=== PATIENT | male | born 1950 | race Caucasian/White ===

== ENCOUNTER 2020-05-06 12:23 | Inpatient (IN) | payer MEDICARE, MEDICAID, SELFPAY ==
[2020-05-06] VITALS (8 sets, daily range): BP systolic 93–160; BP diastolic 46–80; PULSE 62–78; RESP 14–22; TEMP 36.6–37.7; O2SAT 93–98; BMI 42.5
--- NOTE | 2020-05-06 12:28 | ECG_ITS ---
Test Reason : INFECTION/SEPSIS? Blood Pressure : / mmHG Vent. Rate : 064 BPM Atrial Rate : 064 BPM P-R Int : 160 ms QRS Dur : 100 ms QT Int : 396 ms P-R-T Axes : 019 008 023 degrees QTc Int : 408 ms Normal sinus rhythm Normal ECG When compared with ECG of 29-APR-2019 09:47, No significant change was found Referred By: Jimena Haines Electronically Signed By:LILI DHALIWAL
--- NOTE | 2020-05-06 12:28 | XR_ITS ---
EXAMINATION: XR CHEST CLINICAL INFORMATION: Weakness, suspect COVID COMPARISON: Chest radiographs 04/29/2019, 07/17/2017 TECHNIQUE: Portable upright AP view of the chest was obtained. FINDINGS: Lungs are clear. There is no airspace consolidation or groundglass opacity. The heart is normal in size. The vascularity is normal. The costophrenic sulci are clear. The hilar and mediastinal contours and bony structures are similar to prior study. XR/XR chest 1V IMPRESSION: Unremarkable examination.
--- NOTE | 2020-05-06 12:30 | ED.WEAKNESS ---
HPI - Weakness General Chief complaint: Weakness Stated complaint: weakness x3 days, dizzy Time Seen by Provider: 05/06/20 12:28 Source: patient and EMS Mode of arrival: EMS Limitations: no limitations History of Present Illness HPI Narrative: 69 y/o male with history of RA with chronic knee pain on chronic opiates, HTN, psoriasis, MICHAEL, HLD, hx fall, CKD who presents to the ED via EMS with reports of 3 days of generalized weakness to the point of being unable to ambulate at home. He lives alone and usually walks with a walker. He also reports dizziness at home. He has increase in LE edema and pain along with new skin changes of redness to lower legs. He denies fever, chills, or chest pain at home. He is intermittently SOB which is his baseline. He has been compliant with his lasix BID. Complaint: generalized weakness Onset (ago): day(s) (3) Duration: constant Location: generalized Migration: none Severity: severe Quality: aching Relieving factors: rest Exacerbating factors: movement and exertion Context: history of similar Associated symptoms: loss of appetite, rash and shortness of breath Related Data Home Medications Medication Instructions Recorded Confirmed etanercept 50 mg/mL (1 mL) 50 mg SUBCUT QWEEK 05/04/20 05/04/20 subcutaneous syringe folic acid 1 mg tablet 1 mg PO DAILY 05/04/20 05/04/20 omeprazole 20 mg capsule,delayed 20 mg PO DAILY 05/04/20 05/04/20 release promethazine 25 mg tablet 12.5 mg PO BID PRN 05/04/20 05/04/20 Previous Rx's Medication Instructions Recorded fluticasone propionate 50 2 spray INTRANASAL DAILY #15.8 ml 02/03/20 mcg/actuation nasal spray,suspension furosemide 20 mg tablet 20 mg PO BID #90 tab 03/31/20 ibuprofen 600 mg tablet 600 mg PO Q8H PRN #90 tab 05/02/20 oxycodone 5 mg tablet 10 mg PO Q6H PRN #240 tab 05/04/20 Allergies Allergy/AdvReac Type Severity Reaction Status Date / Time simvastatin [SIMVASTATIN] Allergy Unknown TOLD NEVER Verified 05/04/20 08:40 TO TAKE, Cramps in legs, cramps in legs Gold shot AdvReac Unknown Itching Uncoded 12/09/19 00:00 Review of Systems Review of Systems: Constitutional: No Fever, No Chills ENT/Mouth: No sore throat, No Rhinorrhea, No Swallowing Difficulty Eyes: No Eye Pain, No Swelling, No Redness Cardiovascular: No Chest Pain, + SOB, No Orthopnea, + Edema Respiratory: No Cough, No Sputum, No Wheezing, No dyspnea Gastrointestinal: No Nausea, No Vomiting, No Diarrhea, No abdominal Pain, No Hematochezia, No Melena, +constipation Genitourinary: No Dysuria, No Urinary Frequency, No Hematuria Musculoskeletal: + joint pain, + Myalgias Skin: + Skin Lesions, + rash Neuro: + Weakness, No Numbness, + Dizziness, + Headache Psych: No Anxiety/Panic, No Depression Heme/Lymph: No Bruising, No Lymphadenopathy Endocrine: No Polyuria, No Polydipsia PMFSH Past Medical History Medical History (Updated 05/06/20 @ 17:50 by ROLANDA Gaming) Chronic arthritis Pain management Surgical History H/O rectal polypectomy History of bilateral cataract extraction Family History Family History Father CAD (coronary artery disease) Diabetes Mother Diabetes Brother Diabetes Social History Social History Alcohol intake: never Smoking Status: Never smoker Smoked in Last 30 Days: No Use of substances other than those prescribed or required for medical reasons: No Advance Directives: No Advance Directives Information Provided: Yes Physical Exam Vital Signs: Vital Signs: Last Vital Signs Temp 99.8 F 05/06/20 17:45 Pulse 62 05/06/20 17:45 Resp 15 05/06/20 17:45 BP 93/51 L 05/06/20 17:45 Pulse Ox 98 05/06/20 17:45 Body Mass Index 42.5 Appearance: Alert. Oriented X3. No acute distress. Eyes: Pupils equal, round and reactive to light. Very pale conjunctiva bilaterally ENT: tongue and mucus membranes extremely dry Neck: Normal inspection. Neck supple. CVS: Normal heart rate and rhythm. Pulses normal. Respiratory: No respiratory distress. Breath sounds normal. Abdomen: Obses, Soft and nontender. +BS x4 ZULY: Stool ball palpated in distal rectum, normal rectal bone, light brown stool. Skin: Skin warm and dry. Normal skin color. Poor skin turgor. Extremities: 3+ LE edema from knees distally with bilateral erythema and warmth. RLE with several 1cm blackened scabs anteriorly. LLE with 2cm clear fluid filled bulla to lower leg with superficial 4cm circular culceration medially with yellowish discharge on dressing. Neuro: Oriented X 3. Severe generalized weakness, RUE >LLE. 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 No facial droop, smile is symmetrical. Course Course Course Narrative: 69 y/o male presenting with significantly generalized weakness, LE edema and erythema concerning for cellulitis and sepsis. Concerned for electrolyte abnormalities given muscle weakness. He is very pale, likely anemic. Admits to occasional BRBPR. Not on a/c. No black stools. Reports weakness x2-3 days. Doubt acute CVA given it is diffuse (although RUE more weak than LUE) but will get CT head to further assess. Will panculture, get basic labs, EKG and check for COVID. Anticipate admission. Reevaluation(s) Reevaluation #1: Labs show WBC 22K with acute renal failure, BUN/Cr 57/2.03 from a baseline of 33/1.32 one year ago. He is also anemic with H/H 9.5/29.7 from a baseline of 13/38. Guiac stool is negative. ?from renal failure. BNP 222 with significant edema on exam - will need to be cautious with IVF. 1L ordered over 4 hours as well as broad spectrum antibiotics Vancomycin and Zosyn. Lactic acid is normal. LE dopplers ordered to r/o DVT. Patient informed of results and need for admission and he is agreeable. Reevaluation #2: Spoke with Dr. Culver re: US results +DVT in RLE at junction of common & superficial femoral veins to popliteal veins. Given ABEL will start on heparin infusion for treatment. His H/H will need to be closely monitored given anemia. No signs of bleeding. Will TT hospitalist for admission. Reevaluation #3: to admit. MDM - Weakness Lab Data Result diagrams: 05/06/20 12:54 05/06/20 12:54 Labs: Lab Results 05/06/20 05/06/20 05/06/20 Range/Units 12:54 12:54 12:54 WBC 22.4 H (4.8-10.8) X10*3/uL RBC 3.25 L (4.60-5.80) X10*6/uL Hgb 9.5 L (14.0-18.0) g/dl Hct 29.7 L (42-52) % MCV 91.4 (80-98) fL MCH 29.2 (27.0-33.0) pg MCHC 32.0 (31.0-36.0) g/dl RDW 17.2 H (11.0-16.0) % Plt Count 197 (160-400) X10*3/uL MPV 10.2 (9.4-12.4) fL Immature Gran % (Auto) Cancelled Neut % (Auto) Cancelled Lymph % (Auto) Cancelled [place] % (Auto) Cancelled Eos % (Auto) Cancelled Baso % (Auto) Cancelled Lymph # (Auto) Cancelled [place] # (Auto) Cancelled Eos # (Auto) Cancelled Baso # (Auto) Cancelled Abs Immat Gran (auto) Cancelled Absolute Neuts (auto) Cancelled Absolute Nucleated RBC 0.000 (0.0-0.012) X10*3/uL Nucleated RBC % (auto) 0.0 (0.0-0.2) /100WBC Neutrophils % (Manual) 77 H (45-73) % Band Neutrophils % 20 H (3-5) % Lymphocytes % (Manual) 2 L (20-40) % Monocytes % (Manual) 1 L (2-11) % Abs Neuts (Manual) 21.7 H (2.2-7.9) X10*3/uL Lymphocytes # (Manual) 0.4 L (0.6-4.8) X10*3/uL Monocytes # (Manual) 0.2 (0.0-1.2) X10*3/uL Toxic Vacuolation PRESENT Platelet Estimate NORMAL (NORMAL) Plt Morphology Comment NORMAL RBC Morphology NOTED Rouleaux PRESENT PT 14.9 H (10.8-13.0) SEC INR 1.3 H (0.9-1.1) APTT 33.2 (24.1-38.0) SEC Hold Blue Top SEE NOTE Sodium 140 (135-145) mmol/L Potassium 4.1 (3.3-5.1) mmol/l Chloride 110 H (96-108) mmol/L Carbon Dioxide 17 L (22-29) mmol/L Anion Gap 17 (12-20) BUN 57 H (9-16) mg/dL Creatinine 2.03 H (0.5-1.4) mg/dL Estim Creat Clear Calc 41.9 Estimated GFR 33 Random Glucose 167 H (60-115) mg/dL Lactic Acid (0.5-2.0) mmol/L Calcium 8.5 (8.4-10.2) mg/dL Magnesium 2.4 (1.6-2.6) mg/dL Total Bilirubin 0.5 (0.0-1.0) mg/dL Direct Bilirubin 0.3 (0.0-0.5) mg/dL AST 33 (5-37) U/L ALT 19 (0-40) U/L Alkaline Phosphatase 85 (39-117) U/L C-Reactive Protein 31.00 H (< or = 0.50) mg/dL B-Natriuretic Peptide (<100) pg/mL Total Protein 6.5 (6.5-8.0) g/dL Albumin 3.2 L (3.5-5.0) g/dL Stool Occult Blood (NEG) Coronavirus (PCR) (Negative) Influenza Type A (PCR) (Negative) Influenza Type B (PCR) (Negative) RSV RNA Qual (PCR) (Negative) Blood Type Antibody Screen 05/06/20 05/06/20 05/06/20 Range/Units 12:54 13:03 13:04 WBC (4.8-10.8) X10*3/uL RBC (4.60-5.80) X10*6/uL Hgb (14.0-18.0) g/dl Hct (42-52) % MCV (80-98) fL MCH (27.0-33.0) pg MCHC (31.0-36.0) g/dl RDW (11.0-16.0) % Plt Count (160-400) X10*3/uL MPV (9.4-12.4) fL Immature Gran % (Auto) Neut % (Auto) Lymph % (Auto) [place] % (Auto) Eos % (Auto) Baso % (Auto) Lymph # (Auto) [place] # (Auto) Eos # (Auto) Baso # (Auto) Abs Immat Gran (auto) Absolute Neuts (auto) Absolute Nucleated RBC (0.0-0.012) X10*3/uL Nucleated RBC % (auto) (0.0-0.2) /100WBC Neutrophils % (Manual) (45-73) % Band Neutrophils % (3-5) % Lymphocytes % (Manual) (20-40) % Monocytes % (Manual) (2-11) % Abs Neuts (Manual) (2.2-7.9) X10*3/uL Lymphocytes # (Manual) (0.6-4.8) X10*3/uL Monocytes # (Manual) (0.0-1.2) X10*3/uL Toxic Vacuolation Platelet Estimate (NORMAL) Plt Morphology Comment RBC Morphology Rouleaux PT (10.8-13.0) SEC INR (0.9-1.1) APTT (24.1-38.0) SEC Hold Blue Top Sodium (135-145) mmol/L Potassium (3.3-5.1) mmol/l Chloride (96-108) mmol/L Carbon Dioxide (22-29) mmol/L Anion Gap (12-20) BUN (9-16) mg/dL Creatinine (0.5-1.4) mg/dL Estim Creat Clear Calc Estimated GFR Random Glucose (60-115) mg/dL Lactic Acid 1.5 (0.5-2.0) mmol/L Calcium (8.4-10.2) mg/dL Magnesium (1.6-2.6) mg/dL Total Bilirubin (0.0-1.0) mg/dL Direct Bilirubin (0.0-0.5) mg/dL AST (5-37) U/L ALT (0-40) U/L Alkaline Phosphatase (39-117) U/L C-Reactive Protein (< or = 0.50) mg/dL B-Natriuretic Peptide 222 H (<100) pg/mL Total Protein (6.5-8.0) g/dL Albumin (3.5-5.0) g/dL Stool Occult Blood (NEG) Coronavirus (PCR) NEGATIVE (Negative) Influenza Type A (PCR) NEGATIVE (Negative) Influenza Type B (PCR) NEGATIVE (Negative) RSV RNA Qual (PCR) NEGATIVE (Negative) Blood Type Antibody Screen 05/06/20 05/06/20 05/06/20 Range/Units 13:23 13:23 14:09 WBC (4.8-10.8) X10*3/uL RBC (4.60-5.80) X10*6/uL Hgb (14.0-18.0) g/dl Hct (42-52) % MCV (80-98) fL MCH (27.0-33.0) pg MCHC (31.0-36.0) g/dl RDW (11.0-16.0) % Plt Count (160-400) X10*3/uL MPV (9.4-12.4) fL Immature Gran % (Auto) Neut % (Auto) Lymph % (Auto) [place] % (Auto) Eos % (Auto) Baso % (Auto) Lymph # (Auto) [place] # (Auto) Eos # (Auto) Baso # (Auto) Abs Immat Gran (auto) Absolute Neuts (auto) Absolute Nucleated RBC (0.0-0.012) X10*3/uL Nucleated RBC % (auto) (0.0-0.2) /100WBC Neutrophils % (Manual) (45-73) % Band Neutrophils % (3-5) % Lymphocytes % (Manual) (20-40) % Monocytes % (Manual) (2-11) % Abs Neuts (Manual) (2.2-7.9) X10*3/uL Lymphocytes # (Manual) (0.6-4.8) X10*3/uL Monocytes # (Manual) (0.0-1.2) X10*3/uL Toxic Vacuolation Platelet Estimate (NORMAL) Plt Morphology Comment RBC Morphology Rouleaux PT (10.8-13.0) SEC INR (0.9-1.1) APTT (24.1-38.0) SEC Hold Blue Top Sodium (135-145) mmol/L Potassium (3.3-5.1) mmol/l Chloride (96-108) mmol/L Carbon Dioxide (22-29) mmol/L Anion Gap (12-20) BUN (9-16) mg/dL Creatinine (0.5-1.4) mg/dL Estim Creat Clear Calc Estimated GFR Random Glucose (60-115) mg/dL Lactic Acid (0.5-2.0) mmol/L Calcium (8.4-10.2) mg/dL Magnesium (1.6-2.6) mg/dL Total Bilirubin (0.0-1.0) mg/dL Direct Bilirubin (0.0-0.5) mg/dL AST (5-37) U/L ALT (0-40) U/L Alkaline Phosphatase (39-117) U/L C-Reactive Protein (< or = 0.50) mg/dL B-Natriuretic Peptide 219 H (<100) pg/mL Total Protein (6.5-8.0) g/dL Albumin (3.5-5.0) g/dL Stool Occult Blood NEG (NEG) Coronavirus (PCR) (Negative) Influenza Type A (PCR) (Negative) Influenza Type B (PCR) (Negative) RSV RNA Qual (PCR) (Negative) Blood Type A Positive Antibody Screen NEGATIVE Discharge Plan Discharge Clinical Impression: Anemia, Acute deep vein thrombosis (DVT), Cellulitis, ABEL (acute kidney injury) Patient Disposition: Admitted As Inpatient Prescriptions: No Action fluticasone propionate 50 mcg/actuation spray,suspension 2 spray intranasal DAILY Qty: 15.8 RF: 8 furosemide 20 mg tablet 20 mg PO BID Qty: 90 RF: 8 ibuprofen 600 mg tablet 600 mg PO Q8H PRN (Reason: pain) Qty: 90 RF: 8 folic acid 1 mg tablet 1 mg PO DAILY RF: 0 promethazine 25 mg tablet 12.5 mg PO BID PRN (Reason: itch) RF: 0 Enbrel 50 mg/mL (1 mL) syringe 50 mg subcut QWEEK RF: 0 omeprazole 20 mg capsule,delayed release(DR/EC) 20 mg PO DAILY RF: 0 oxycodone 5 mg tablet 10 mg PO Q6H PRN (Reason: pain) Qty: 240 RF: 0
--- NOTE | 2020-05-06 12:34 | PC.NURSE ---
pt from home, lives alone, has 2 people that help care for him. He states over the past 3 days he has been taking on water . He states he uses a diuretic but in the last 3 days has had increasing leg edema making it difficult to walk. He states his family called [facility] because he was weak and unable to get up and around.
[2020-05-06 13:05] LABS: Hematocrit 29.7 % (42-52); Hemoglobin 9.5 g/dl (14.0-18.0); Mean Corpuscular Hemoglobin 29.2 pg (27.0-33.0); Mean Corpuscular Volume 91.4 fL (80-98); Mean Platelet Volume 10.2 fL (9.4-12.4); Platelet Count 197 X10*3/uL (160-400); Red Blood Count 3.25 X10*6/uL (4.60-5.80); Red Cell Distribution Width 17.2 % (11.0-16.0); White Blood Count 22.4 X10*3/uL (4.8-10.8)
--- NOTE | 2020-05-06 13:05 | CT_ITS ---
EXAMINATION: CT HEAD WITHOUT CONTRAST CLINICAL INFORMATION: Upper extremity weakness and dizziness. COMPARISON: CT brain 07/17/2017 TECHNIQUE: Contiguous axial imaging was performed from the skull base to vertex without intravenous administration of contrast. This CT examination was performed using dose optimization techniques as appropriate, variously including the following: *Automated exposure control *Adjustment of mA and/or kV according to patient size (this includes techniques or standardized protocols for targeted exams where dose is matched to indication/reason for exam; i.e. extremities or head) *Use of iterative reconstruction technique DLP: 867 mGy-cm FINDINGS: There is no evidence of acute intracranial hemorrhage or territorial infarction. No abnormal mass effect or midline shift is seen. Velazquez to white matter differentiation is well preserved. No extra-axial fluid collections are identified. The ventricles are normal in size. There is no abnormal attenuation within the brain parenchyma. The osseous structures and soft tissues are normal. The mastoid air cells and visualized portions of the paranasal sinuses are well aerated. CT/CT head/brain wo con IMPRESSION: No acute intracranial process seen. No major change from 07/17/2017
--- NOTE | 2020-05-06 13:08 | US_ITS ---
EXAMINATION: US VENOUS ULTRASOUND WITH DOPPLER LOWER EXTREMITY, BILATERAL CLINICAL INFORMATION: Edema, erythema and pain. COMPARISON: None TECHNIQUE: Ultrasound of the deep veins is performed from the hip to the calf with compression sonography and color and pulse Doppler assessment. Spectral analysis with color-flow imaging is performed. FINDINGS: RIGHT: There is acute thrombus seen extending from the common femoral/superficial femoral venous junction to the popliteal vein with very slow flow seen. The peroneal vein is not seen. There are several lymph nodes seen in the right groin with the largest lymph node measuring 3 cm. The proximal and mid and distal common femoral vein is patent. LEFT: There is normal venous compression and respiratory variation and augmented flow. The visualized common femoral vein, superficial femoral vein, profunda femoral vein, popliteal vein, and the trifurcation region shows no evidence of deep venous thrombosis. There is no significant popliteal fossa cyst. US/US venous duplex LE BI IMPRESSION: Acute DVT right right lower extremity extending from the junction of common and superficial femoral veins to the popliteal vein. No DVT seen in left lower leg. Results were called immediately by phone to ED, ROLANDA Gaming at 4:15 PM
[2020-05-06 13:31] LABS: Alanine Aminotransferase 19 U/L (0-40); Albumin Level 3.2 g/dL (3.5-5.0); Alkaline Phosphatase 85 U/L (39-117); Anion Gap 17 (12-20); Aspartate Amino Transferase 33 U/L (5-37); Band Neutrophils Percent 20 % (3-5); Bilirubin Direct 0.3 mg/dL (0.0-0.5); Bilirubin Total 0.5 mg/dL (0.0-1.0); Blood Urea Nitrogen 57 mg/dL (9-16); Calcium 8.5 mg/dL (8.4-10.2); Carbon Dioxide 17 mmol/L (22-29); Chloride 110 mmol/L (96-108); Creatinine Clr Calc Pharmacy 41.9; Estimated Glomerular Filt Rate 33; Glucose Random 167 mg/dL (60-115); Lymphocytes Absolute Manual 0.4 X10*3/uL (0.6-4.8); Lymphocytes Percent Manual 2 % (20-40); Magnesium 2.4 mg/dL (1.6-2.6); Monocytes Absolute Manual 0.2 X10*3/uL (0.0-1.2); Monocytes Percent Manual 1 % (2-11); Neutrophils Absolute Manual 21.7 X10*3/uL (2.2-7.9); Neutrophils Percent Manual 77 % (45-73); Platelet Estimate NORMAL (NORMAL); Platelet Morphology Comment NORMAL; Potassium 4.1 mmol/l (3.3-5.1); RBC Morphology NOTED; Sodium 140 mmol/L (135-145); Total Protein 6.5 g/dL (6.5-8.0); Toxic Vacuolation PRESENT
[2020-05-06 13:32] LABS: B Type Natriuretic Peptide 222 pg/mL (<100); Rouleau PRESENT
[2020-05-06 13:35] LABS: Lactic Acid 1.5 mmol/L (0.5-2.0)
[2020-05-06] MEDS: Piperacillin Sodium/Tazobactam 3.375 GM in 0.9 % Sodium Chloride 50 ML IV (13:35)
[2020-05-06 13:55] LABS: B Type Natriuretic Peptide 219 pg/mL (<100)
[2020-05-06 14:15] LABS: Influenza A PCR NEGATIVE (Negative); Influenza B PCR NEGATIVE (Negative); Resp Syncy Virus RNA Qual PCR NEGATIVE (Negative); SARS COV2 PCR INHOUSE NEGATIVE (Negative)
[2020-05-06 14:15] LABS: OBS Int Ctl Valid YES; OBS1 NEG (NEG)
[2020-05-06] MEDS: 0.9 % Sodium Chloride 1,000 ML 250 ML IVCONT (14:41)
[2020-05-06 16:36] LABS: INTERNATIONAL NORM RATIO 1.3 (0.9-1.1); Prothrombin Time 14.9 SEC (10.8-13.0)
[2020-05-06 16:39] LABS: Partial Thromboplastin Time 33.2 SEC (24.1-38.0)
--- NOTE | 2020-05-06 17:37 | P.HPHOSP_ITS ---
History of Present Illness Date of Service: 05/06/20 Chief Complaint: weakness swelling 69-year-old male morbidly obese , with stasis dermatitis, chronic arthritis presented with weakness and increased leg swelling, patient reported feeling weak and noticed increased swelling and redness of lower extremity more on the right side, patient also reported difficulty getting out of bed since last Saturday and patient was not able to eat and drink as patient was not able to stand up and walk, at baseline patient is able to walk to bathroom but not much functional , patient also reported few episodes of blood in stool on and off and attributed it from constipation, patient is taking Motrin for his arthritis, ethan brenton was brought to ER , in the ER found to have leukocytosis with WBCs around 22 , creatinine 2.0 , labs from April, shows creatinine around 1.02 , DVT study of right lower extremity was positive, found to have bilateral lower extremity redness and erythema superimposed on chronic dermatitis, patient was started on heparin drip, received 1 dose of Vanco and Zosyn and inpatient admission was requested Patient denies any fever chills or sick contact, patient was tested negative for COVID Review of Systems Constitutional: Constitutional: Reports fatigue and Reports weakness Cardiovascular: Cardiovascular: Denies chest pain, Reports leg edema and Denies dyspnea Respiratory: Respiratory: Denies dyspnea Gastrointestinal: Gastrointestinal: Denies diarrhea and Denies vomiting Musculoskeletal: Musculoskeletal: Reports arthralgias Neurologic: Denies abnormal gait, Denies focal weakness and Reports weakness Endocrine: Endocrine: Reports fatigue [facility] Medical History (Updated 05/06/20 @ 17:50 by ETHAN Gaming) Chronic arthritis Pain management Functional capacity: uses cane/walker Family History Father CAD (coronary artery disease) Diabetes Mother Diabetes Brother Diabetes Surgical History H/O rectal polypectomy History of bilateral cataract extraction Social History Alcohol intake: never Smoking Status: Never smoker Smoked in Last 30 Days: No Use of substances other than those prescribed or required for medical reasons: No Advance Directives: No Advance Directives Information Provided: Yes Meds Allergies Allergy/AdvReac Type Severity Reaction Status Date / Time simvastatin [SIMVASTATIN] Allergy Unknown TOLD NEVER Verified 05/04/20 08:40 TO TAKE, Cramps in legs, cramps in legs Gold shot AdvReac Unknown Itching Uncoded 12/09/19 00:00 Home Medications Medication Instructions Recorded Confirmed Type etanercept 50 mg/mL (1 mL) 50 mg SUBCUT QWEEK 05/04/20 05/04/20 History subcutaneous syringe folic acid 1 mg tablet 1 mg PO DAILY 05/04/20 05/04/20 History omeprazole 20 mg capsule,delayed 20 mg PO DAILY 05/04/20 05/04/20 History release promethazine 25 mg tablet 12.5 mg PO BID PRN 05/04/20 05/04/20 History Physical Exam Vital Signs and Narrative: Vital Signs: Last Vital Signs Temp 99.8 F 05/06/20 14:00 Pulse 62 05/06/20 16:11 Resp 14 05/06/20 16:11 BP 97/46 L 05/06/20 16:11 Pulse Ox 96 05/06/20 16:11 Body Mass Index 42.5 Const: General: no acute distress Neck: Yes normal visual inspection Resp: Auscultation: diminished lung sounds (Diminished lung sounds at bases) Cardio: Jugular venous distension: no JVD Rhythm: regular rhythm GI: Palpation (GI): Soft to palpation Skin: Nails: other (Bilateral lower extremity redness and swelling more on the right lower extr) Results Labs CBC and Chem 7: 05/06/20 12:54 05/06/20 12:54 Labs: Laboratory Results - last 24 hr 05/06/20 05/06/20 05/06/20 12:54 12:54 12:54 MCV 91.4 MCH 29.2 MCHC 32.0 RDW 17.2 H Plt Count 197 MPV 10.2 Immature Gran % (Auto) Cancelled Neut % (Auto) Cancelled Lymph % (Auto) Cancelled [place] % (Auto) Cancelled Eos % (Auto) Cancelled Baso % (Auto) Cancelled Lymph # (Auto) Cancelled [place] # (Auto) Cancelled Eos # (Auto) Cancelled Baso # (Auto) Cancelled Abs Immat Gran (auto) Cancelled Absolute Neuts (auto) Cancelled Absolute Nucleated RBC 0.000 Nucleated RBC % (auto) 0.0 Neutrophils % (Manual) 77 H Band Neutrophils % 20 H Lymphocytes % (Manual) 2 L Monocytes % (Manual) 1 L Abs Neuts (Manual) 21.7 H Lymphocytes # (Manual) 0.4 L Monocytes # (Manual) 0.2 Toxic Vacuolation PRESENT Platelet Estimate NORMAL Plt Morphology Comment NORMAL RBC Morphology NOTED Rouleaux PRESENT PT 14.9 H INR 1.3 H APTT 33.2 Hold Blue Top SEE NOTE Anion Gap 17 Estim Creat Clear Calc 41.9 Estimated GFR 33 Random Glucose 167 H Lactic Acid Calcium 8.5 Magnesium 2.4 Total Bilirubin 0.5 Direct Bilirubin 0.3 AST 33 ALT 19 Alkaline Phosphatase 85 C-Reactive Protein 31.00 H B-Natriuretic Peptide Total Protein 6.5 Albumin 3.2 L Stool Occult Blood Coronavirus (PCR) Influenza Type A (PCR) Influenza Type B (PCR) RSV RNA Qual (PCR) Blood Type Antibody Screen 05/06/20 05/06/20 05/06/20 12:54 13:03 13:04 MCV MCH MCHC RDW Plt Count MPV Immature Gran % (Auto) Neut % (Auto) Lymph % (Auto) [place] % (Auto) Eos % (Auto) Baso % (Auto) Lymph # (Auto) [place] # (Auto) Eos # (Auto) Baso # (Auto) Abs Immat Gran (auto) Absolute Neuts (auto) Absolute Nucleated RBC Nucleated RBC % (auto) Neutrophils % (Manual) Band Neutrophils % Lymphocytes % (Manual) Monocytes % (Manual) Abs Neuts (Manual) Lymphocytes # (Manual) Monocytes # (Manual) Toxic Vacuolation Platelet Estimate Plt Morphology Comment RBC Morphology Rouleaux PT INR APTT Hold Blue Top Anion Gap Estim Creat Clear Calc Estimated GFR Random Glucose Lactic Acid 1.5 Calcium Magnesium Total Bilirubin Direct Bilirubin AST ALT Alkaline Phosphatase C-Reactive Protein B-Natriuretic Peptide 222 H Total Protein Albumin Stool Occult Blood Coronavirus (PCR) NEGATIVE Influenza Type A (PCR) NEGATIVE Influenza Type B (PCR) NEGATIVE RSV RNA Qual (PCR) NEGATIVE Blood Type Antibody Screen 05/06/20 05/06/20 05/06/20 13:23 13:23 14:09 MCV MCH MCHC RDW Plt Count MPV Immature Gran % (Auto) Neut % (Auto) Lymph % (Auto) [place] % (Auto) Eos % (Auto) Baso % (Auto) Lymph # (Auto) [place] # (Auto) Eos # (Auto) Baso # (Auto) Abs Immat Gran (auto) Absolute Neuts (auto) Absolute Nucleated RBC Nucleated RBC % (auto) Neutrophils % (Manual) Band Neutrophils % Lymphocytes % (Manual) Monocytes % (Manual) Abs Neuts (Manual) Lymphocytes # (Manual) Monocytes # (Manual) Toxic Vacuolation Platelet Estimate Plt Morphology Comment RBC Morphology Rouleaux PT INR APTT Hold Blue Top Anion Gap Estim Creat Clear Calc Estimated GFR Random Glucose Lactic Acid Calcium Magnesium Total Bilirubin Direct Bilirubin AST ALT Alkaline Phosphatase C-Reactive Protein B-Natriuretic Peptide 219 H Total Protein Albumin Stool Occult Blood NEG Coronavirus (PCR) Influenza Type A (PCR) Influenza Type B (PCR) RSV RNA Qual (PCR) Blood Type A Positive Antibody Screen NEGATIVE Imaging Radiologist's Impressions: Impressions Chest X-Ray 05/06/20 12:28 IMPRESSION: Unremarkable examination. Head CT 05/06/20 13:05 IMPRESSION: No acute intracranial process seen. No major change from 07/17/2017 Venous Duplex 05/06/20 13:08 IMPRESSION: Acute DVT right right lower extremity extending from the junction of common and superficial femoral veins to the popliteal vein. No DVT seen in left lower leg. Results were called immediately by phone to ED, ETHAN Gaming at 4:15 PM Assessment and Plan (1) Chronic arthritis: Status: Acute 69-year-old male presented with worsening weakness difficulty standing and increased leg swelling and redness found to have cellulitis and DVT of right lower extremity Severe sepsis secondary to lower extremity cellulitis superimposed on stasis dermatitis Meets sepsis criteria leukocytosis with tachypnea Sepsis focused exam performed Received 1 dose of Vanco and Zosyn Continue IV Zosyn Will hold Vanco given acute kidney injury Monitor blood culture Id consult Acute kidney injury likely secondary to dehydration secondary to poor p.o. intake Creatinine around 2.03 creatinine from last year 1.02, could be underlying CKD Continue IV fluid Monitor kidney function Avoid nephrotoxins Hold Lasix Hold Motrin DVT right lower extremity Started on heparin drip Monitor PTT Monitor CBC closely given anemia Normocytic anemia Stool for occult blood negative Hemoglobin around 9.5 on admission Previous hemoglobin for last year around 13.5 Monitor CBC closely while on heparin drip If hemoglobin dropped further consider GI consult Continue PPI Hold NSAID Chronic arthritic pain Continue pain management Debility weakness PT evaluation DVT prophylaxis on heparin drip Patient wishes to be DNR DNI
[2020-05-06] MEDS: 0.9 % Sodium Chloride 1,000 ML 125 ML IVCONT (17:58)
[2020-05-06] MEDS: Heparin Sodium,Porcine/1/2NS 25,000 UNIT/250 ML IV.SOLN 17.23 UNIT IVCONT (18:04)
--- NOTE | 2020-05-06 18:36 | PC.NURSE ---
pt requested snack, given sandwich. He has Heparin running, is otherwise comfortable and resting quietly. Report called to Laina LOWERY
--- NOTE | 2020-05-06 18:52 | MHC.CM.PN ---
Met with pt in ED pending admission to the floor. A&Ox3. Reports weakness for several days and unable to walk much, even with walker. 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 He no longer drives. Had STR at [facility] a year ago and is willing to return there if STR recommended. Aware he will have a PT evaluation while in hospital. IMM reviewed and signed. White copy given to pt and yellow placed in his chart. Referral placed at [facility]. CM will follow for d/c needs
--- NOTE | 2020-05-06 19:36 | MHC.CM.NN ---
[facility] is on a H admissions freeze. CM will re-assess D/C plan for STR in am
[2020-05-06] MEDS: Piperacillin Sodium/Tazobactam 2.25 GM in 0.9 % Sodium Chloride 50 ML IV (19:50)
[2020-05-07] VITALS (7 sets, daily range): BP systolic 116–159; BP diastolic 56–77; PULSE 51–65; RESP 14–20; TEMP 36.1–37.2; O2SAT 95–99
[2020-05-07 00:58] LABS: PTT Heparin Drip 85.9 SEC (53-77.9)
[2020-05-07] MEDS: 0.9 % Sodium Chloride 1,000 ML 125 ML IVCONT ×3 (02:01→23:39)
--- NOTE | 2020-05-07 02:12 | PC.NURSE ---
pt reporting abdominal discomfort/pressure. stating only able to urinate small amounts. bladder scan for 814ml. goodman inserted and drained 1000cc immediately. goodman patent and draining dk yellow urine.
[2020-05-07] MEDS: Piperacillin Sodium/Tazobactam 2.25 GM in 0.9 % Sodium Chloride 50 ML IV ×3 (03:54→20:46)
[2020-05-07 06:26] LABS: Hematocrit 30.8 % (42-52); Hemoglobin 9.6 g/dl (14.0-18.0); Mean Corpuscular HGB Conc 31.2 g/dl (31.0-36.0); Mean Corpuscular Hemoglobin 29.3 pg (27.0-33.0); Mean Corpuscular Volume 93.9 fL (80-98); Mean Platelet Volume 10.6 fL (9.4-12.4); Platelet Count 170 X10*3/uL (160-400); Red Blood Count 3.28 X10*6/uL (4.60-5.80); Red Cell Distribution Width 17.4 % (11.0-16.0); White Blood Count 16.5 X10*3/uL (4.8-10.8)
[2020-05-07 06:32] LABS: INTERNATIONAL NORM RATIO 1.1 (0.9-1.1); Prothrombin Time 13.6 SEC (10.8-13.0)
[2020-05-07 06:59] LABS: Anion Gap 16 (12-20); Blood Urea Nitrogen 46 mg/dL (9-16); Carbon Dioxide 19 mmol/L (22-29); Chloride 112 mmol/L (96-108); Creatinine Clr Calc Pharmacy 51.6; Estimated Glomerular Filt Rate 41; Glucose Random 96 mg/dL (60-115); Potassium 3.5 mmol/l (3.3-5.1); Sodium 143 mmol/L (135-145)
[2020-05-07 07:39] LABS: PTT Heparin Drip 53.5 SEC (53-77.9)
--- NOTE | 2020-05-07 11:17 | HO.PM.IMPN ---
Subjective Subjective Date of Service: 05/08/20 Interval History: Patient admitted with acute kidney injury, cellulitis, right lower extremity DVT, anemia now patient complaining of right shoulder pain that started acutely 3 days ago without any injury fall, patient denies fever chills, feels weak. Review of Systems General no headache, no dizziness no fever chills. CVS no chest pain, no palpitation. Respiratory no cough, no shortness of breath Gastrointestinal no nausea, no vomiting, no abdominal pain Physical Exam Vital Signs: Vital Signs: Last Vital Signs Temp 98 F 05/07/20 07:20 Pulse 61 05/07/20 07:20 Resp 17 05/07/20 07:20 BP 146/76 H 05/07/20 07:20 Pulse Ox 98 05/07/20 07:20 Body Mass Index 42.5 Const: Other: General sick appearing, pale color . Neck is supple no JVD. Right shoulder tenderness to touch, no redness, no bruise, unable to move right shoulder, significant pain with passive movement CVS regular rate rhythm, Respiratory lungs clear to auscultation, no respiratory distress Gastrointestinal abdomen obese, soft, nontender, bowel sounds audible, no rigidity. Extremities bilateral lower extremity redness and edema with dry scab, no open wounds or drainage, pitting edema right leg >left Neuro nonfocal speech clear. Objective Data Current Medications Generic Name Dose Route Start Last Admin Trade Name Freq PRN Reason Stop Dose Admin Fluticasone Propionate 2 spray 05/07/20 09:00 Fluticasone Propionate Nasal 16 Gm [place] NOSTRIL-B DAILY EZIO Folic Acid 1 mg 05/07/20 09:00 Folic Acid 1 Mg Tablet PO DAILY EZIO Heparin Sodium/Sodium Chloride 25,000 unit in 250 mls @ 0 mls/hr 05/06/20 16:30 05/07/20 01:06 IVCONT 12 units/kg/hr .Q0M EZIO 14.77 mls/hr Titration Protocol Per Protocol Sodium Chloride 1,000 mls @ 125 mls/hr 05/06/20 17:30 05/07/20 02:01 Ns IVCONT 125 mls/hr .Q8H EZIO Administration Piperacillin Sod/Tazobactam 50 mls @ 100 mls/hr 05/06/20 19:00 05/07/20 04:24 Sod 2.25 gm/ Sodium Chloride IV Infused Q8H EZIO Infusion Omeprazole 20 mg 05/07/20 09:00 Omeprazole 20 Mg Capsule.Dr PO DAILY EZIO Oxycodone HCl 10 mg 05/06/20 18:52 Oxycodone Hcl Immed Release 5 Mg Tablet PO Q6H PRN pain Pharmacy Consult 1 each 05/06/20 13:06 Consult Rx Vancomycin Dosing MISCELLANE DAILY PRN Consult order Pharmacy Consult 1 each 05/06/20 17:41 Consult Rx Perform Med Rec MISCELLANE ONCE PRN Consult order Promethazine HCl 12.5 mg 05/06/20 18:52 Promethazine Hcl 25 Mg Tablet PO BID PRN itch Sodium Chloride 3 ml 05/07/20 00:00 05/07/20 00:03 0.9 % Sodium Chloride Flush 3 Ml Syringe IVFLUSH Not Given QSHIFT [facility] Labs CBC & Chem 7: 05/08/20 06:42 05/08/20 06:42 Microbiology Microbiology Results: Microbiology 05/06/20 12:54 Blood - Venous Blood Culture - Preliminary 05/06/20 13:03 Blood - Venous Blood Culture - Preliminary Assessment and Plan (1) Acute deep vein thrombosis (DVT): Status: Acute (2) Anemia: Status: Acute (3) Cellulitis: Status: Acute (4) ABEL (acute kidney injury): Status: Acute (5) Chronic arthritis: Status: Acute (6) Right shoulder pain: Status: Acute Assessment and Plan: 69-year-old male presented with worsening weakness difficulty standing and increased leg swelling and redness found to have cellulitis and DVT of right lower extremity. Severe sepsis secondary to lower extremity cellulitis superimposed on stasis dermatitis Meets sepsis criteria leukocytosis, tachypnea, lactic acidosis Continue IV Zosyn, renally dosed, blood cultures pending, will obtain ID consult Acute kidney injury on chronic kidney disease stage 3 likely secondary to dehydration secondary to poor p.o. intake, use of NSAID Creatinine trending down from Creatinine 2.03 to 1.[address] Barker will continue IV fluids Avoid nephrotoxins, hold Lasix DVT right lower extremity Continue IV heparin drip will transition to oral anticoagulant if hematocrit remains stable with no active GI bleed Acute on chronic anemia, no active GI bleed noted patient has history of constipation and at times noted some blood on toilet paper Normocytic anemia Hemoglobin hematocrit remains stable around 30.8, hematocrit has drop significantly since last year samuel,hct of 38 Will obtain iron studies, serum immunofixation, B12, folate check stool guaiac, follow CBC, Continue PPI Acute right shoulder pain with no prior injury of fall Shoulder pain started 3 days ago patient unable to move shoulder due to sepsis and concern for septic arthritis will obtain an MRI study. Debility weakness PT evaluation
[2020-05-07] MEDS: Omeprazole 20 MG CAPSULE.DR PO (11:51)
[2020-05-07] MEDS: Fluticasone Propionate Nasal 16 GM SPRAY 2 SPRAY NOSTRIL-B (11:51)
[2020-05-07] MEDS: Folic Acid 1 MG TABLET PO (11:51)
[2020-05-07] MEDS: 0.9 % Sodium Chloride Flush 3 ML SYRINGE IVFLUSH (11:52)
--- NOTE | 2020-05-07 12:00 | P.CONNP_ITS ---
History of Present Illness Reason for Consult Consult date: 05/07/20 Chief Complaint Chief complaint: Sepsis Donell cellulitis History of Present Illness Narrative: Asked to see PT to eval DONELL ( SCr 2.0) on adm in setting of cellultis of legs with sepsis syndrome. IVF overnigh t and the Scr improving down to 1.6 c/w mponsnt of dehydration vs Obs as he has a goodman in now. Noted DVT on U/S and now on heparin along with Abx for cellulitis. Overall c/o gen weakness Deneises any h/o kidney probs. Demeis use of NSAIDs. No BPH symptoms. No Fhx of kidney probs Review of Systems Review of Systems General no headache, no dizziness no fever chills. CVS no chest pain, no palpitation. Respiratory no cough, no shortness of breath Gastrointestinal no nausea, no vomiting, no abdominal pain Constitutional: Reports fatigue and Reports weakness Cardiovascular: Denies chest pain, Reports leg edema and Denies dyspnea Respiratory: Denies dyspnea Gastrointestinal: Denies diarrhea and Denies vomiting Musculoskeletal: Denies abnormal gait and Reports arthralgias Denies abnormal gait, Denies focal weakness and Reports weakness Endocrine: Reports fatigue PMF Past Medical History Medical History (Updated 05/07/20 @ 11:33 by Harsha Cotter MD) Chronic arthritis Pain management Functional capacity: uses cane/walker Family History Family History Father CAD (coronary artery disease) Diabetes Mother Diabetes Brother Diabetes Surgical History Surgical History H/O rectal polypectomy History of bilateral cataract extraction Social History Social History Household Members: None Housing: Apartment Do you presently have visiting nurse or other home services: 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 If so, by whom?: No Do you feel safe in your current relationship?: No Is there a partner from a previous relationship who is making you feel unsafe now?: No Are you made to feel afraid or neglected: No Advance Directives: No Advance Directives Information Provided: Yes Advance Directives on File: No Do you have thoughts of harming others: None Do you have a plan to hurt others: No Plan Recently lost weight without trying: No service: No Current occupational status: unemployed Meds Allergies Allergy/AdvReac Type Severity Reaction Status Date / Time simvastatin [SIMVASTATIN] Allergy Unknown TOLD NEVER Verified 05/04/20 08:40 TO TAKE, Cramps in legs, cramps in legs Gold shot AdvReac Unknown Itching Uncoded 12/09/19 00:00 Home Medications Medication Instructions Recorded Confirmed Type etanercept 50 mg/mL (1 mL) 50 mg SUBCUT SA 05/04/20 05/06/20 History subcutaneous syringe folic acid 1 mg tablet 1 mg PO DAILY 05/04/20 05/06/20 History omeprazole 20 mg capsule,delayed 20 mg PO DAILY 05/04/20 05/06/20 History release promethazine 25 mg tablet 12.5 mg PO BID PRN 05/04/20 05/06/20 History Physical Exam Vital Signs: Last Vital Signs Temp 98.6 F 05/07/20 11:21 Pulse 62 05/07/20 11:21 Resp 20 05/07/20 11:21 BP 136/62 05/07/20 11:21 Pulse Ox 99 05/07/20 11:21 Body Mass Index 42.5 Const Other: General sick appearing, pale color . Neck is supple no JVD. Right shoulder tenderness to touch, no redness, no bruise, unable to move right shoulder, significant pain with passive movement CVS regular rate rhythm, Respiratory lungs clear to auscultation, no respiratory distress Gastrointestinal abdomen obese, soft, nontender, bowel sounds audible, no rigidity. Extremities bilateral lower extremity redness and edema with dry scab, no open wounds or drainage, pitting edema right leg >left Neuro nonfocal speech clear. General: no acute distress Neck Neck: Yes normal visual inspection Resp Auscultation: diminished lung sounds (Diminished lung sounds at bases) Cardio Other: General sick appearing, pale color . Neck is supple no JVD. Right shoulder tenderness to touch, no redness, no bruise, unable to move right shoulder, significant pain with passive movement CVS regular rate rhythm, Respiratory lungs clear to auscultation, no respiratory distress Gastrointestinal abdomen obese, soft, nontender, bowel sounds audible, no rigidity. Extremities bilateral lower extremity redness and edema with dry scab, no open wounds or drainage, pitting edema right leg >left Neuro nonfocal speech clear. Jugular venous distension: no JVD Rhythm: regular rhythm GI Palpation (GI): Soft to palpation Skin Nails: other (Bilateral lower extremity redness and swelling more on the right lower extr) Results Lab Results Result Diagrams: 05/07/20 05:02 05/07/20 05:02 Lab results: Chemistry 05/06/20 05/07/20 12:54 05:02 Sodium 140 143 Potassium 4.1 3.5 Carbon Dioxide 17 L 19 L BUN 57 H 46 H Creatinine 2.03 H 1.65 H Calcium 8.5 8.0 L Hematology 05/06/20 05/07/20 12:54 05:02 WBC 22.4 H 16.5 H Hgb 9.5 L 9.6 L Plt Count 197 170 Assessment and Plan (1) Acute deep vein thrombosis (DVT): Qualifiers: Affected thrombotic vein of extremity: femoral DVT location: lower extremity Laterality: right Qualified Code(s): I82.411 - Acute embolism and thrombosis of right femoral vein Status: Acute (2) Anemia: Qualifiers: Anemia type: unspecified type Qualified Code(s): D64.9 - Anemia, unspecified Status: Acute (3) Cellulitis: Qualifiers: Laterality: unspecified laterality Site of cellulitis: extremity Site of cellulitis of extremity: lower extremity Qualified Code(s): L03.119 - Cellulitis of unspecified part of limb Status: Acute (4) DONELL (acute kidney injury): Status: Acute (5) Chronic arthritis: Status: Acute (6) Right shoulder pain: Status: Acute 69-year-old male presented with worsening weakness difficulty standing and increased leg swelling and redness found to have cellulitis and DVT of right lower extremity and DONELL. 1. DONELL: decr Scr is good sign and suggests pre-renal component vs Obs; less llieky IM-Cx mediated GN assoc with infection or sepsis assoc ATN given the decr Scr overnight. 2. Anemia: need to r/o myeolam and nutritional def 3. Cellulitis 4. DVT 5. TBFOL with decr intavasc vol 6. L shoulder pain: needs furhter eval for ques trauma vs infectin REC: cont IVF for now and track UOP renal fucn; Urine studies and serum Ifixation; avoid NToxins will follow wtih team
[2020-05-07] MEDS: Heparin Sodium,Porcine/1/2NS 25,000 UNIT/250 ML IV.SOLN 14.77 UNIT IVCONT (12:02)
[2020-05-07 13:28] LABS: PTT Heparin Drip 35.7 SEC (53-77.9)
[2020-05-07 13:43] LABS: Iron 8 mcg/dL (45-160); Percent Iron Saturation 4 % (15-50); Total Iron Binding Capacity 218 mcg/dL (228-428); Unsaturated Iron Binding 210 ug/dL
[2020-05-07 14:03] LABS: Ferritin 287 ng/mL (20-250)
[2020-05-07 14:34] LABS: Creatinine Urine 52.85 mg/dL
[2020-05-07 14:36] LABS: Total Protein Urine Random 31 mg/dL (<12)
[2020-05-07] MEDS: Heparin Sodium,Porcine 5,000 UNIT/ML VIAL 9848 UNIT IVPUSH (15:15)
[2020-05-07] MEDS: polyethylene glycoL 3350 17 GM POWD.PACK PO (17:20)
[2020-05-07] MEDS: Docusate Sodium 100 MG CAPSULE PO (20:46)
[2020-05-07 22:06] LABS: PTT Heparin Drip 130.5 SEC (53-77.9)
[2020-05-07 23:48] LABS: PTT Heparin Drip 42.6 SEC (53-77.9)
[2020-05-08] MEDS: Piperacillin Sodium/Tazobactam 2.25 GM in 0.9 % Sodium Chloride 50 ML IV (02:47)
[2020-05-08 03:02] VITALS: BP 173/80; PULSE 57; RESP 18; TEMP 36.8; O2SAT 98
--- NOTE | 2020-05-08 05:10 | MHC.PIE ---
P.2 SECOND PAUSE I.PT HAD 2 SECOND PAUSE ON TELE,ASLEEP.SNORING.HR TO 35 THEN BACK TO 50'S,SB, NOTIFIED.NO NEW ORDERS AT THIS TIME. E.CONT TO MONITOR
[2020-05-08] MEDS: Heparin Sodium,Porcine/1/2NS 25,000 UNIT/250 ML IV.SOLN 14.77 UNIT IVCONT (06:46)
[2020-05-08 06:50] LABS: MANUAL DIFF FLAG NO
[2020-05-08 07:09] LABS: PTT Heparin Drip 34.8 SEC (53-77.9)
[2020-05-08 07:13] LABS: Basophils Percent Auto 0.2 % (0-2); Eosinophils Absolute Auto 0.1 X10*3/uL (0.0-0.4); Eosinophils Percent Auto 0.7 % (0-4); Hematocrit 30.3 % (42-52); Hemoglobin 9.3 g/dl (14.0-18.0); Imm Gran Abs Auto 0.04 X10*3/uL (0.00-0.03); Imm Gran Pct Auto 0.3 % (0.0-0.4); Lymphocytes Absolute Auto 1.3 X10*3/uL (1.2-4.9); Lymphocytes Percent Auto 11.1 % (20-40); Mean Corpuscular HGB Conc 30.7 g/dl (31.0-36.0); Mean Corpuscular Volume 94.4 fL (80-98); Mean Platelet Volume 10.6 fL (9.4-12.4); Monocytes Absolute Auto 0.6 X10*3/uL (0.1-1.2); Monocytes Percent Auto 5.3 % (2-11); Neutrophils Absolute Auto 9.4 X10*3/uL (2.0-8.3); Neutrophils Percent Auto 82.4 % (45-73); Platelet Count 167 X10*3/uL (160-400); Red Blood Count 3.21 X10*6/uL (4.60-5.80); Red Cell Distribution Width 17.2 % (11.0-16.0); White Blood Count 11.4 X10*3/uL (4.8-10.8)
[2020-05-08 07:14] VITALS: BP 155/67; PULSE 55; RESP 18; TEMP 36.8; O2SAT 96
[2020-05-08 07:38] LABS: Blood Urea Nitrogen 34 mg/dL (9-16); Calcium 7.6 mg/dL (8.4-10.2); Creatinine Clr Calc Pharmacy 67.6; Estimated Glomerular Filt Rate 56; Glucose Random 96 mg/dL (60-115)
[2020-05-08 07:54] LABS: Anion Gap 15 (12-20); Carbon Dioxide 17 mmol/L (22-29); Chloride 115 mmol/L (96-108); Potassium 3.5 mmol/l (3.3-5.1); Sodium 143 mmol/L (135-145)
[2020-05-08] MEDS: polyethylene glycoL 3350 17 GM POWD.PACK PO (08:18)
[2020-05-08] MEDS: Folic Acid 1 MG TABLET PO (08:19)
[2020-05-08] MEDS: Heparin Sodium,Porcine 5,000 UNIT/ML VIAL 9848 UNIT IVPUSH (08:19)
[2020-05-08] MEDS: Omeprazole 20 MG CAPSULE.DR PO (08:19)
[2020-05-08] MEDS: Fluticasone Propionate Nasal 16 GM SPRAY 2 SPRAY NOSTRIL-B (08:20)
[2020-05-08 11:08] VITALS: BP 151/75; PULSE 65; RESP 17; TEMP 36.8; O2SAT 99
--- NOTE | 2020-05-08 11:33 | HO.PM.IMPN ---
Subjective Subjective Date of Service: 05/08/20 Interval History: Patient right shoulder pain is a little better but complaining of bilateral knee pain today, overall feels good, denies chest pain denies fever chills no other acute issues overnight. Review of Systems General no headache, no dizziness no fever chills. CVS no chest pain, no palpitation. Respiratory no cough, no shortness of breath Gastrointestinal no nausea, no vomiting, no abdominal pain Physical Exam Vital Signs: Vital Signs: Last Vital Signs Temp 98.2 F 05/08/20 11:08 Pulse 65 05/08/20 11:08 Resp 17 05/08/20 11:08 BP 151/75 H 05/08/20 11:08 Pulse Ox 99 05/08/20 11:08 Body Mass Index 42.5 General resting in bed, no distress, pale color . Neck is supple no JVD. Right shoulder no redness, no bruise, able to lift right shoulder today but persistent restriction of movement. CVS regular rate rhythm, Respiratory lungs clear to auscultation, no respiratory distress Gastrointestinal abdomen obese, soft, nontender, bowel sounds audible, no rigidity. Extremities bilateral lower extremity redness and edema with dry scab, no open wounds or drainage, pitting edema right leg >left unchanged Neuro nonfocal speech clear. Objective Data Current Medications Generic Name Dose Route Start Last Admin Trade Name Freq PRN Reason Stop Dose Admin Apixaban 5 mg 05/08/20 21:00 Apixaban 5 Mg Tablet PO BID [facility] Docusate Sodium 100 mg 05/07/20 16:11 05/07/20 20:46 Docusate Sodium 100 Mg Capsule PO 100 mg BID PRN Administration Constipation Ferrous Sulfate 324 mg 05/08/20 09:30 Ferrous Sulfate 324 Mg Tablet. PO BIDWM [facility] Ferrous Sulfate 324 mg 05/08/20 17:00 Ferrous Sulfate 324 Mg Tablet. PO BIDWM [facility] Fluticasone Propionate 2 spray 05/07/20 09:00 05/08/20 08:20 Fluticasone Propionate Nasal 16 Gm [place] NOSTRIL-B 2 spray DAILY EZIO Administration Folic Acid 1 mg 05/07/20 09:00 05/08/20 08:19 Folic Acid 1 Mg Tablet PO 1 mg DAILY EZIO Administration Piperacillin Sod/Tazobactam 50 mls @ 100 mls/hr 05/08/20 11:28 Sod 3.25 gm/ Sodium Chloride IV Q8H EZIO Omeprazole 20 mg 05/07/20 09:00 05/08/20 08:19 Omeprazole 20 Mg Capsule.Dr PO 20 mg DAILY EZIO Administration Oxycodone HCl 10 mg 05/06/20 18:52 Oxycodone Hcl Immed Release 5 Mg Tablet PO Q6H PRN pain Pharmacy Consult 1 each 05/06/20 13:06 Consult Rx Vancomycin Dosing MISCELLANE DAILY PRN Consult order Pharmacy Consult 1 each 05/06/20 17:41 Consult Rx Perform Med Rec MISCELLANE ONCE PRN Consult order Polyethylene Glycol 17 gm 05/07/20 16:15 05/08/20 08:18 Polyethylene Glycol 3350 17 Gm Powd.Pack PO 17 gm DAILY EZIO Administration Promethazine HCl 12.5 mg 05/06/20 18:52 Promethazine Hcl 25 Mg Tablet PO BID PRN itch Sodium Chloride 3 ml 05/07/20 00:00 05/08/20 08:20 0.9 % Sodium Chloride Flush 3 Ml Syringe IVFLUSH Not Given QSHIFT [facility] Labs CBC & Chem 7: 05/08/20 06:42 05/08/20 06:42 Microbiology Microbiology Results: Microbiology 05/06/20 13:03 Blood - Venous Blood Culture - Preliminary Strep agalactiae (Grp B) 05/06/20 12:54 Blood - Venous Blood Culture - Preliminary Strep agalactiae (Grp B) Assessment and Plan (1) Right shoulder pain: Status: Acute (2) Anemia: Status: Acute (3) Acute deep vein thrombosis (DVT): Status: Acute (4) Cellulitis: Status: Acute (5) ABEL (acute kidney injury): Status: Acute (6) Chronic arthritis: Status: Acute (7) Pain management: Problem details: cont same meds; 20 min reviewing chart, evaluating patient and documenting Status: Acute Assessment and Plan: 69-year-old male presented with worsening weakness difficulty standing and increased leg swelling and redness found to have cellulitis and DVT of right lower extremity. Severe sepsis secondary to lower extremity cellulitis superimposed on stasis dermatitis Leukocytosis trending down, no tachypnea, lactic acidosis resolved Continue IV Zosyn, changed dosage since renal function improved,blood cultures grew Streptococcus agilectae group B continue current treatment, await ID input. Acute kidney injury on chronic kidney disease stage 3 likely secondary to dehydration secondary to poor p.o. intake, use of NSAID Creatinine returned to normal range, will DC IV fluid Case discussed with Dr. Barker Avoid nephrotoxins, hold Lasix for today, follow BMP DVT right lower extremity On IV heparin drip will transition to Eliquis 5 mg b.i.d. since hematocrit remains stable with no active GI bleed Acute on chronic anemia, no active GI bleed noted patient has history of constipation and at times noted some blood on toilet paper Normocytic anemia Hemoglobin hematocrit remains stable around 30.8, hematocrit has drop significantly since last year samuel,hct of 38 Iron studies consistent with iron deficiency, serum immunofixation, B12, folate pending,stool guaiac, negative, follow CBC, Continue PPI Will add iron supplement. Acute right shoulder pain with no prior injury of fall/history of chronic arthritis Shoulder pain better this a.m. MRI attempted but patient did not fit into the machine, since shoulder pain improving , will hold off on imaging studies and follow clinical course Continue oxycodone, Tylenol for pain control and add hot pack/Aspercreme. Debility weakness/chronic arthritis PT evaluation
[2020-05-08] MEDS: Piperacillin Sodium/Tazobactam 3.375 GM in 0.9 % Sodium Chloride 50 ML IV ×2 (12:34→17:35)
[2020-05-08] MEDS: Ferrous Sulfate 324 MG TABLET.DR PO ×2 (12:34→17:36)
[2020-05-08] MEDS: oxyCODONE HCl Immed Release 5 MG TABLET 10 MG PO ×2 (12:36→18:45)
[2020-05-08 15:38] VITALS: BP 151/70; PULSE 56; RESP 18; TEMP 36.7; O2SAT 98
--- NOTE | 2020-05-08 16:03 | PM.PNNEP ---
Subjective Subjective Date of Service: 05/08/20 Interval history: Seen and examined. events noted. Physical Exam Vital Signs: Vital Signs: Last Vital Signs Temp 98.0 F 05/08/20 15:38 Pulse 56 05/08/20 15:38 Resp 18 05/08/20 15:38 BP 151/70 H 05/08/20 15:38 Pulse Ox 98 05/08/20 15:38 Body Mass Index 42.5 Const: Other: General sick appearing, pale color . Neck is supple no JVD. Right shoulder tenderness to touch, no redness, no bruise, unable to move right shoulder, significant pain with passive movement CVS regular rate rhythm, Respiratory lungs clear to auscultation, no respiratory distress Gastrointestinal abdomen obese, soft, nontender, bowel sounds audible, no rigidity. Extremities bilateral lower extremity redness and edema with dry scab, no open wounds or drainage, pitting edema right leg >left Neuro nonfocal speech clear. General: no acute distress Neck: Neck: Yes normal visual inspection Resp: Auscultation: diminished lung sounds (Diminished lung sounds at bases) Cardio: Other: General sick appearing, pale color . Neck is supple no JVD. Right shoulder tenderness to touch, no redness, no bruise, unable to move right shoulder, significant pain with passive movement CVS regular rate rhythm, Respiratory lungs clear to auscultation, no respiratory distress Gastrointestinal abdomen obese, soft, nontender, bowel sounds audible, no rigidity. Extremities bilateral lower extremity redness and edema with dry scab, no open wounds or drainage, pitting edema right leg >left Neuro nonfocal speech clear. Jugular venous distension: no JVD Rhythm: regular rhythm GI: Palpation (GI): Soft to palpation Skin: Nails: other (Bilateral lower extremity redness and swelling more on the right lower extr) Objective Data Labs CBC & Chem 7: 05/08/20 06:42 05/08/20 06:42 Labs: Laboratory Results - last 24 hr 05/07/20 05/07/20 05/08/20 21:32 23:30 06:42 WBC RBC Hgb Hct MCV MCH MCHC RDW Plt Count MPV Immature Gran % (Auto) Neut % (Auto) Lymph % (Auto) [place] % (Auto) Eos % (Auto) Baso % (Auto) Lymph # (Auto) [place] # (Auto) Eos # (Auto) Baso # (Auto) Abs Immat Gran (auto) Absolute Neuts (auto) Absolute Nucleated RBC Nucleated RBC % (auto) PTT (Heparin Protocol) 130.5 H* D 42.6 L D Sodium 143 Potassium 3.5 Chloride 115 H Carbon Dioxide 17 L Anion Gap 15 BUN 34 H Creatinine 1.26 Estim Creat Clear Calc 67.6 Estimated GFR 56 Random Glucose 96 Calcium 7.6 L 05/08/20 05/08/20 06:42 06:42 WBC 11.4 H RBC 3.21 L Hgb 9.3 L Hct 30.3 L MCV 94.4 MCH 29.0 MCHC 30.7 L RDW 17.2 H Plt Count 167 MPV 10.6 Immature Gran % (Auto) 0.3 Neut % (Auto) 82.4 H Lymph % (Auto) 11.1 L [place] % (Auto) 5.3 Eos % (Auto) 0.7 Baso % (Auto) 0.2 Lymph # (Auto) 1.3 [place] # (Auto) 0.6 Eos # (Auto) 0.1 Baso # (Auto) 0.0 Abs Immat Gran (auto) 0.04 H Absolute Neuts (auto) 9.4 H Absolute Nucleated RBC 0.000 Nucleated RBC % (auto) 0.0 PTT (Heparin Protocol) 34.8 L Sodium Potassium Chloride Carbon Dioxide Anion Gap BUN Creatinine Estim Creat Clear Calc Estimated GFR Random Glucose Calcium Microbiology Microbiology Results: Microbiology 05/06/20 13:03 Blood - Venous Blood Culture - Preliminary Strep agalactiae (Grp B) 05/06/20 12:54 Blood - Venous Blood Culture - Preliminary Strep agalactiae (Grp B) Assessment & Plan Assessment and plan (1) Acute deep vein thrombosis (DVT): Status: Acute (2) Anemia: Status: Acute (3) Cellulitis: Status: Acute (4) ABEL (acute kidney injury): Status: Acute (5) Chronic arthritis: Status: Acute (6) Right shoulder pain: Status: Acute Assessment and Plan: 69-year-old male presented with worsening weakness difficulty standing and increased leg swelling and redness found to have cellulitis and DVT of right lower extremity and ABLE. 1. ABEL: cont decr Scr is good sign and c/w pre-renal component 2. Anemia: 3. Cellulitis 4. DVT 5. TBFOL with decr intavasc vol 6. L shoulder pain: decr in pain..ques etiol 7. NAGMA REC: d/c IVF for now and track UOP renal fucn; avoid NToxins; po fe but avoid iv fe given infection issues will follow wtih team Time Spent With Patient Time: Total time spent is greater than 50% in coordination of care (as documented) at patient's floor/unit and/or counseling patient:
[2020-05-08] MEDS: 0.9 % Sodium Chloride Flush 3 ML SYRINGE IVFLUSH (17:36)
[2020-05-08 19:44] VITALS: BP 133/72; PULSE 61; RESP 18; TEMP 36.2; O2SAT 97
[2020-05-08] MEDS: Apixaban 5 MG TABLET PO (21:41)
[2020-05-09] VITALS (7 sets, daily range): BP systolic 127–161; BP diastolic 64–87; PULSE 56–65; RESP 18–20; TEMP 36.2–37.6; O2SAT 97–98; BMI 42.5
[2020-05-09] MEDS: 0.9 % Sodium Chloride Flush 3 ML SYRINGE IVFLUSH ×4 (00:17→21:13)
[2020-05-09] MEDS: Piperacillin Sodium/Tazobactam 3.375 GM in 0.9 % Sodium Chloride 50 ML IV ×3 (00:17→11:22)
[2020-05-09 04:39] LABS: Vitamin B12 982 pg/mL (200-900)
--- NOTE | 2020-05-09 06:42 | PC.NURSE ---
noted to iv pole heparin medicine, medication order was discontinued previous day, approx waste 115 ml and witnessed and [place] [facility] [place]
[2020-05-09 06:46] LABS: Basophils Percent Auto 0.2 % (0-2); Eosinophils Absolute Auto 0.4 X10*3/uL (0.0-0.4); Eosinophils Percent Auto 4.6 % (0-4); Hematocrit 33.5 % (42-52); Hemoglobin 10.5 g/dl (14.0-18.0); Imm Gran Pct Auto 1.1 % (0.0-0.4); Lymphocytes Absolute Auto 1.5 X10*3/uL (1.2-4.9); Lymphocytes Percent Auto 17.2 % (20-40); MANUAL DIFF FLAG SCAN; Mean Corpuscular HGB Conc 31.3 g/dl (31.0-36.0); Mean Corpuscular Hemoglobin 29.3 pg (27.0-33.0); Mean Corpuscular Volume 93.6 fL (80-98); Mean Platelet Volume 11.7 fL (9.4-12.4); Monocytes Absolute Auto 0.8 X10*3/uL (0.1-1.2); Monocytes Percent Auto 8.8 % (2-11); Neutrophils Absolute Auto 6.1 X10*3/uL (2.0-8.3); Neutrophils Percent Auto 68.1 % (45-73); PLT CLUMP 1; Red Blood Count 3.58 X10*6/uL (4.60-5.80); Red Cell Distribution Width 17.4 % (11.0-16.0); SCAN SMEAR FLAG 1
[2020-05-09 06:58] LABS: Platelet Count 198 X10*3/uL (160-400)
[2020-05-09 07:04] LABS: Anion Gap 18 (12-20); Blood Urea Nitrogen 31 mg/dL (9-16); Calcium 7.9 mg/dL (8.4-10.2); Carbon Dioxide 15 mmol/L (22-29); Chloride 111 mmol/L (96-108); Creatinine Clr Calc Pharmacy 71.5; Estimated Glomerular Filt Rate > 60; Glucose Random 90 mg/dL (60-115); Potassium 4.4 mmol/l (3.3-5.1); Sodium 140 mmol/L (135-145)
[2020-05-09 07:59] LABS: SLIDE REVIEW VERIFIED
[2020-05-09 09:14] LABS: White Blood Count 8.9 X10*3/uL (4.8-10.8)
[2020-05-09] MEDS: Ferrous Sulfate 324 MG TABLET.DR PO ×2 (09:34→16:25)
[2020-05-09] MEDS: polyethylene glycoL 3350 17 GM POWD.PACK PO (09:34)
[2020-05-09] MEDS: Apixaban 5 MG TABLET PO ×2 (09:35→21:12)
[2020-05-09] MEDS: Fluticasone Propionate Nasal 16 GM SPRAY 2 SPRAY NOSTRIL-B (09:35)
[2020-05-09] MEDS: Omeprazole 20 MG CAPSULE.DR PO (09:35)
[2020-05-09] MEDS: Folic Acid 1 MG TABLET PO (09:35)
--- NOTE | 2020-05-09 10:10 | P.PNNP_ITS ---
Subjective Subjective Date of Service: 05/09/20 Interval history: Seen and examined. events noted. feeling better no diarrhea Physical Exam Vital Signs: Vital Signs: Last Vital Signs Temp 99.7 F 05/09/20 08:00 Pulse 63 05/09/20 08:00 Resp 20 05/09/20 08:00 BP 161/79 H 05/09/20 08:00 Pulse Ox 98 05/09/20 08:00 Body Mass Index 42.5 Const: Other: General sick appearing, pale color . Neck is supple no JVD. Right shoulder tenderness to touch, no redness, no bruise, unable to move right shoulder, significant pain with passive movement CVS regular rate rhythm, Respiratory lungs clear to auscultation, no respiratory distress Gastrointestinal abdomen obese, soft, nontender, bowel sounds audible, no rigidity. Extremities bilateral lower extremity redness and edema with dry scab, no open wounds or drainage, pitting edema right leg >left Neuro nonfocal speech clear. General: no acute distress Neck: Neck: Yes normal visual inspection Resp: Auscultation: diminished lung sounds (Diminished lung sounds at bases) Cardio: Other: General sick appearing, pale color . Neck is supple no JVD. Right shoulder tenderness to touch, no redness, no bruise, unable to move right shoulder, significant pain with passive movement CVS regular rate rhythm, Respiratory lungs clear to auscultation, no respiratory distress Gastrointestinal abdomen obese, soft, nontender, bowel sounds audible, no rigidity. Extremities bilateral lower extremity redness and edema with dry scab, no open wounds or drainage, pitting edema right leg >left Neuro nonfocal speech clear. Jugular venous distension: no JVD Rhythm: regular rhythm GI: Palpation (GI): Soft to palpation Skin: Nails: other (Bilateral lower extremity redness and swelling more on the right lower extr) Objective Data Labs CBC & Chem 7: 05/09/20 05:23 05/09/20 05:23 Labs: Laboratory Results - last 24 hr 05/07/20 05/09/20 05/09/20 13:07 05:23 05:23 WBC 8.9 RBC 3.58 L Hgb 10.5 L Hct 33.5 L MCV 93.6 MCH 29.3 MCHC 31.3 RDW 17.4 H Plt Count 198 MPV 11.7 Immature Gran % (Auto) 1.1 H Neut % (Auto) 68.1 Lymph % (Auto) 17.2 L [place] % (Auto) 8.8 Eos % (Auto) 4.6 H Baso % (Auto) 0.2 Lymph # (Auto) 1.5 [place] # (Auto) 0.8 Eos # (Auto) 0.4 Baso # (Auto) 0.0 Abs Immat Gran (auto) 0.10 H Absolute Neuts (auto) 6.1 Absolute Nucleated RBC 0.000 Nucleated RBC % (auto) 0.0 Smear Tech's Comments VERIFIED Sodium 140 Potassium 4.4 D Chloride 111 H Carbon Dioxide 15 L Anion Gap 18 BUN 31 H Creatinine 1.19 Estim Creat Clear Calc 71.5 Estimated GFR > 60 Random Glucose 90 Calcium 7.9 L Vitamin B12 982 H Folate 19.0 Microbiology Microbiology Results: Microbiology 05/06/20 13:03 Blood - Venous Blood Culture - Final Strep agalactiae (Grp B) 05/06/20 12:54 Blood - Venous Blood Culture - Final Strep agalactiae (Grp B) Assessment & Plan Assessment and plan (1) Acute deep vein thrombosis (DVT): Status: Acute (2) Anemia: Status: Acute (3) Cellulitis: Status: Acute (4) ABEL (acute kidney injury): Status: Acute (5) Chronic arthritis: Status: Acute (6) Right shoulder pain: Status: Acute Assessment and Plan: 69-year-old male presented with worsening weakness difficulty standing and increased leg swelling and redness found to have cellulitis and DVT of right lower extremity and ABEL. 1. ABEL: c resolved 2. Anemia: 3. Cellulitis 4. DVT 5. TBFOL with decr intavasc vol 6. L shoulder pain: decr in pain..ques etiol 7. NAGMA REC: start NaHCO3 ( i will order); d/c IVF for now and track UOP renal fucn; avoid NToxins; po fe but avoid iv fe given infection issues will follow wtih team Time Spent With Patient Time: Total time spent is greater than 50% in coordination of care (as documented) at patient's floor/unit and/or counseling patient:
[2020-05-09] MEDS: Sodium Bicarbonate 650 MG TABLET PO ×3 (11:22→21:11)
[2020-05-09] MEDS: oxyCODONE HCl Immed Release 5 MG TABLET 10 MG PO ×2 (11:30→18:19)
--- NOTE | 2020-05-09 12:56 | HO.PM.IMPN ---
Subjective Subjective Date of Service: 05/10/20 Interval History: Patient feels better this a.m. complaining of constipation, asking about Etarnecept shots, no acute issues overnight, no fever chills, pain is better. Review of Systems General no headache, no dizziness no fever chills. CVS no chest pain, no palpitation. Respiratory no cough, no shortness of breath Gastrointestinal no nausea, no vomiting, no abdominal pain Physical Exam Vital Signs: Vital Signs: Last Vital Signs Temp 99.0 F 05/09/20 11:01 Pulse 61 05/09/20 11:01 Resp 20 05/09/20 11:01 BP 145/87 H 05/09/20 11:01 Pulse Ox 97 05/09/20 11:01 Body Mass Index 42.5 General resting in bed, no distress, less pallor . Neck is supple no JVD. CVS regular rate rhythm, Respiratory lungs clear to auscultation, no respiratory distress Gastrointestinal abdomen obese, soft, nontender, bowel sounds audible, no rigidity. Extremities bilateral lower extremity redness and edema with dry scab, no open wounds or drainage, pitting edema right leg >left unchanged improving Neuro nonfocal speech clear. Objective Data Current Medications Generic Name Dose Route Start Last Admin Trade Name Freq PRN Reason Stop Dose Admin Apixaban 5 mg 05/08/20 21:00 05/09/20 09:35 Apixaban 5 Mg Tablet PO 5 mg BID EZIO Administration Docusate Sodium 100 mg 05/09/20 21:00 Docusate Sodium 100 Mg Capsule PO BID [facility] Ferrous Sulfate 324 mg 05/08/20 09:30 05/09/20 09:34 Ferrous Sulfate 324 Mg Tablet. PO 324 mg BIDWM EZIO Administration Fluticasone Propionate 2 spray 05/07/20 09:00 05/09/20 09:35 Fluticasone Propionate Nasal 16 Gm [place] NOSTRIL-B 2 spray DAILY EZIO Administration Folic Acid 1 mg 05/07/20 09:00 05/09/20 09:35 Folic Acid 1 Mg Tablet PO 1 mg DAILY EZIO Administration Piperacillin Sod/Tazobactam 50 mls @ 100 mls/hr 05/08/20 12:00 05/09/20 12:25 Sod 3.375 gm/ Sodium Chloride IV Infused Q6H EZIO Infusion Omeprazole 20 mg 05/07/20 09:00 05/09/20 09:35 Omeprazole 20 Mg Capsule.Dr PO 20 mg DAILY EZIO Administration Oxycodone HCl 10 mg 05/06/20 18:52 05/09/20 11:30 Oxycodone Hcl Immed Release 5 Mg Tablet PO 10 mg Q6H PRN Administration pain Pharmacy Consult 1 each 05/06/20 13:06 Consult Rx Vancomycin Dosing MISCELLANE DAILY PRN Consult order Pharmacy Consult 1 each 05/06/20 17:41 Consult Rx Perform Med Rec MISCELLANE ONCE PRN Consult order Polyethylene Glycol 17 gm 05/07/20 16:15 05/09/20 09:34 Polyethylene Glycol 3350 17 Gm Powd.Pack PO 17 gm DAILY EZIO Administration Promethazine HCl 12.5 mg 05/06/20 18:52 Promethazine Hcl 25 Mg Tablet PO BID PRN itch Sodium Bicarbonate 650 mg 05/09/20 10:15 05/09/20 11:22 Sodium Bicarbonate 650 Mg Tablet PO 650 mg TID EZIO Administration Sodium Chloride 3 ml 05/07/20 00:00 05/09/20 09:34 0.9 % Sodium Chloride Flush 3 Ml Syringe IVFLUSH 3 ml QSHIFT EZIO Administration Labs CBC & Chem 7: 05/09/20 05:23 05/10/20 06:44 Microbiology Microbiology Results: Microbiology 05/06/20 13:03 Blood - Venous Blood Culture - Final Strep agalactiae (Grp B) 05/06/20 12:54 Blood - Venous Blood Culture - Final Strep agalactiae (Grp B) Assessment and Plan (1) Cellulitis: Problem details: Group B strep likely due to cellulitis There is no significant tinea pedis Doubt endocarditis but possible Likely responsible for leukocytosis Status: Acute (2) ABEL (acute kidney injury): Status: Acute (3) Acute deep vein thrombosis (DVT): Problem details: Continue antithrombotic therapy Status: Acute (4) Right shoulder pain: Status: Acute (5) Pain management: Problem details: cont same meds; 20 min reviewing chart, evaluating patient and documenting Status: Acute (6) Chronic arthritis: Status: Acute (7) Anemia: Status: Acute Assessment and Plan: 69-year-old male presented with worsening weakness difficulty standing and increased leg swelling and redness found to have cellulitis and DVT of right lower extremity. Sepsis secondary to lower extremity cellulitis superimposed on stasis dermatitis Leukocytosis resolved, no tachypnea Continue IV Zosyn,blood cultures grew Streptococcus agilectae group B continue current treatment, await ID input for duration and choice of antibiotic. Acute kidney injury on chronic kidney disease stage 3 likely secondary to dehydration secondary to poor p.o. intake, use of NSAID Creatinine returned to normal range after being treated for IV fluid Avoid nephrotoxins, hold Lasix , follow BMP Metabolic acidosis Being followed by Nephrology bicarb added follow BMP DVT right lower extremity Status post IV heparin drip , now on Eliquis 5 mg b.i.d. hematocrit remains stable, stool guaiac negative. Acute on chronic anemia, no active GI bleed noted patient has history of constipation and at times noted some blood on toilet paper Normocytic anemia Hemoglobin hematocrit continues to improve,Iron studies consistent with iron deficiency, serum immunofixation, B12, folate pending,stool guaiac, negative, follow CBC, Continue PPI added iron supplement. Will need close outpatient follow-up of CBC and GI workup. History of chronic arthritis/knee pain also complain of right shoulder pain Shoulder pain better this a.m. MRI attempted but patient did not fit into the machine, since shoulder pain improving , will hold off on imaging studies and follow clinical course Continue oxycodone, Tylenol for pain control and add hot pack/Aspercreme. Debility weakness/chronic arthritis PT evaluation obtained for safe dc
--- NOTE | 2020-05-09 13:11 | P.CDIC_ITS ---
CDI Concurrent Query Service Date: 05/10/20 Documentation Clarification: Please clarify if you are treating a proba ble/suspected/likely or confirmed: Severe Sepsis/Sepsis, treated Severe Sepsis/Sepsis, ruled out Provider Response: Other Other Diagnosis: Sepsis/ severe sepsis ruled out. PLEASE DO NOT DELETE/MODIFY EXISTING CONTENT Additional information is needed in order to code to the highest accuracy and appropriate Severity of Illness (SOI). Please clarify the information noted below in your progress notes and discharge summary. Risk Factors/Clinical Indicators/Treatments 69 year old male admitted with weakness, dizzy, fall, increased lower extremity edema, pain, redness, SOB WBC 22.4 T 99.8, P 62, RR 14 - 20, BP 93/51 LA 1.5 Per H&P: Severe Sepsis secondary to lower extremity cellulitis on stasis dermatitis Received IV antibiotic x 1 dose in ED CDS: Janee Fisher RN Contact Number: [phone] Please Review the information above and exercise your independent professional judgment in responding to the query. If you concur, pleas document in the PROGRESS NOTES and DISCHARGE SUMMARY. If you do not agree with the query, please document in the query above. THIS QUERY IS PART OF THE PERMANENT MEDICAL RECORD
--- NOTE | 2020-05-09 13:55 | W.PM.IDCN ---
History of Present Illness Data of Consult Service Date: 05/09/20 Requesting physician: Harsha Cotter Primary Care Provider: MD MICHELE Bueno Reason for consult: leg redness He presents to hospital with weakness for 3 days as well as fatigue and slow ambulation He has redness and swelling of bilateral lower extremities,right more than left He has DVT right leg and Group B strep bacteremia Review of Systems Review of Systems: Yes all other systems are reviewed and are negative Musculoskeletal: Comments: swelling PMFSH Past Medical History Medical History Chronic arthritis Pain management Functional capacity: uses cane/walker Family History Family History Father CAD (coronary artery disease) Diabetes Mother Diabetes Brother Diabetes Surgical History Surgical History H/O rectal polypectomy History of bilateral cataract extraction Social History Social History Household Members: None Housing: Apartment Alcohol intake: never Smoking Status: Never smoker service: No Current occupational status: unemployed Meds Allergies Allergy/AdvReac Type Severity Reaction Status Date / Time simvastatin [SIMVASTATIN] Allergy Unknown TOLD NEVER Verified 05/04/20 08:40 TO TAKE, Cramps in legs, cramps in legs Gold shot AdvReac Unknown Itching Uncoded 12/09/19 00:00 Home Medications Medication Instructions Recorded Confirmed Type folic acid 1 mg tablet 1 mg PO DAILY 05/04/20 05/06/20 History omeprazole 20 mg capsule,delayed 20 mg PO DAILY 05/04/20 05/06/20 History release promethazine 25 mg tablet 12.5 mg PO BID PRN 05/04/20 05/06/20 History Physical Exam Vital Signs: Vital Signs: Last Vital Signs Temp 99.0 F 05/09/20 11:01 Pulse 61 05/09/20 11:01 Resp 20 05/09/20 11:01 BP 145/87 H 05/09/20 11:01 Pulse Ox 97 05/09/20 11:01 Body Mass Index 42.5 Const: General: cooperative Orientation/consciousness: patient oriented x3 HENMT: Head: Yes normal to inspection Mouth: Normal oral and palatal mucosa present Eyes: General: appearance normal, both eyes and all related structures Resp: Effort & Inspection: normal respiratory effort Cardio: Rate: regular rate Rhythm: regular rhythm GI: Palpation (GI): Soft to palpation and nontender : General: Yes no CVA tenderness Back/Spine/Pelvis: Back: no CVA tenderness Sacrum: erythema and swelling Skin: General skin exam: no rashes or lesions noted Neuro: General: patient oriented x3 Assessment and Plan (1) Cellulitis: Qualifiers: Laterality: unspecified laterality Site of cellulitis: extremity Site of cellulitis of extremity: lower extremity Qualified Code(s): L03.119 - Cellulitis of unspecified part of limb Problem details: Group B strep likely due to cellulitis There is no significant tinea pedis Doubt endocarditis but possible Likely responsible for leukocytosis Status: Acute Ceftriaxone 1 g IV daily Check echo evaluate endocarditis Likely responsible for leukocytosis (2) Acute deep vein thrombosis (DVT): Qualifiers: Affected thrombotic vein of extremity: femoral DVT location: lower extremity Laterality: right Qualified Code(s): I82.411 - Acute embolism and thrombosis of right femoral vein Problem details: Continue antithrombotic therapy Status: Acute (3) ABEL (acute kidney injury): Status: Acute Results Labs CBC & Chem 7: 05/11/20 06:12 05/11/20 06:12 Labs: Short CBC 05/09/20 Range/Units 05:23 WBC 8.9 (4.8-10.8) X10*3/uL Hgb 10.5 L (14.0-18.0) g/dl Hct 33.5 L (42-52) % Plt Count 198 (160-400) X10*3/uL BMP 05/09/20 05:23 Sodium 140 Potassium 4.4 D Chloride 111 H Carbon Dioxide 15 L BUN 31 H Creatinine 1.19 Calcium 7.9 L Microbiology Microbiology Results: Microbiology 05/06/20 13:03 Blood - Venous Blood Culture - Final Strep agalactiae (Grp B) 05/06/20 12:54 Blood - Venous Blood Culture - Final Strep agalactiae (Grp B)
[2020-05-09] MEDS: cefTRIAXone sodium 1 GM in 0.9 % Sodium Chloride 50 ML IV (14:50)
--- NOTE | 2020-05-09 15:15 | MHC.CM.PN ---
PER MULTIDISCIPLINARY ROUNDS, PT WILL LIKELY REQUIRE STR. A PT EVAL WILL BE REQUESTED ONCE PTS CONDITION IMPROVES
[2020-05-09] MEDS: Docusate Sodium 100 MG CAPSULE PO (21:12)
[2020-05-10] VITALS: BP 139/65; PULSE 57; RESP 18; TEMP 37.5; O2SAT 98
[2020-05-10 03:03] VITALS: BP 153/81; PULSE 67; RESP 18; TEMP 37.2; O2SAT 97
[2020-05-10] MEDS: oxyCODONE HCl Immed Release 5 MG TABLET 10 MG PO ×2 (04:57→17:44)
[2020-05-10 07:31] LABS: Anion Gap 13 (12-20); Blood Urea Nitrogen 24 mg/dL (9-16); Calcium 7.9 mg/dL (8.4-10.2); Carbon Dioxide 21 mmol/L (22-29); Chloride 109 mmol/L (96-108); Creatinine Clr Calc Pharmacy 80.3; Estimated Glomerular Filt Rate > 60; Glucose Random 96 mg/dL (60-115); Potassium 3.8 mmol/l (3.3-5.1); Sodium 139 mmol/L (135-145)
[2020-05-10 07:50] VITALS: BP 146/74; PULSE 65; RESP 16; TEMP 36.4; O2SAT 98
--- NOTE | 2020-05-10 08:00 | CA_ITS ---
Transthoracic Echocardiogram Patient (Last, First, Middle): Rich Nance C Gender: Male Date of : 1950 Age: 69 Procedure Date: 05/10/2020 Procedure Type: Transthoracic Echocardiogram Location: S3E Height: 170.18 cm Weight: 146.97 kg BSA: 2.48 m2 Heart Rate: bpm BP: 153 / 81 mmHg Actuarial Analyst: Referring MD: Harsha Cotter MD Symptoms: bacteremia Study Quality: Fair ECG Rhythm: Sinus Conclusions: - Normal left ventricular size and systolic function. - Diastolic function is normal for age. - No significant valvular pathology noted. - Consider a MARIVEL if clinically appropriate. Findings Left Ventricle Normal left ventricular size and systolic function. There is mildly increased left ventricular wall thickness. The visually estimated ejection fraction is between 55-60%. Regional wall motion abnormalities can not be excluded due to suboptimal endocardial definition. Diastolic function is normal for age. Right Ventricle Normal right ventricular cavity size and systolic function. Atria The left atrium is normal in size. Aortic Valve Normal aortic valve structure and function. There is no aortic valve stenosis. There is no aortic valve regurgitation. Mitral Valve Normal mitral valve structure and function. There is no mitral valve regurgitation. There is no mitral valve stenosis. Pulmonic Valve The pulmonic valve is likely normal. Tricuspid Valve Normal tricuspid valve structure and function. There is no tricuspid valve regurgitation. Normal right atrial pressure. There is no evidence of pulmonary hypertension. Great Vessels All visible segments of the aorta are normal in size. The visualized portions of the pulmonary artery and branches are normal. Venous The inferior vena cava is normal in size and collapses greater than 50% with inspiration. Pericardium/Pleural There is no evidence of pericardial effusion. Prior Study Comparison No significant change compared to prior study dated: 04/30/2019. Recommendations, Care & Conclusions Consider a MARIVEL if clinically appropriate. Measurements 2D Linear Measurements IVSd: 1.07 0.6-0.9/0.6-1.0 cm LVIDd: 3.82 3.9-5.3/4.2-5.9 cm LVIDd Index: 1.54 2.4-3.2/2.2-3.1 cm/m2 LVIDs: 2.59 2.0-3.6 cm LVPWd: 1.11 0.7-1.1 cm Ao Root: 3.30 2.1-3.5 cm LA Diam: 3.80 2.7-3.8/3.0-4.0 cm LAIDs Index: 1.53 1.5-2.3 cm/m2 LV Mass: 166.67 67-162/88-224 g LV Mass Index: 67.20 43-95/49-115 g/m2 LVOT Diam: 2.30 3.0+(-)1.3 cm Mitral Valve MV Pk E: 0.71 MV PK A: 0.86 MV Decel Time: 292.00 E/A: 0.80 E'Lateral: 11.70 E'Medial: 7.16 E/E' Med: 9.90 E/E' Lat: 6.10 PHT: 86.00 MVA PHT: 2.56 Decel Sharkey: 2.42 Aortic Valve AoV Pk Tlaon: 1.56 AoV Mn Talon: 1.05 AoV VTI: 0.38 AoV Pk Grad: 10.00 Aov Mn Grad: 5.00 VEENA Cont.VTI: 2.34 LVOT LVOT Pk Talon: 1.03 LVOT Mn Talon: 0.71 LVOT VTI: 0.22 LVOT Pk Grad: 4.00 LVOT Mn Grad: 2.00 LVOT Diam: 2.30 LVOT Area: 4.15 Diastolic Function MV Pk E: 0.71 MV Pk A: 0.86 E/A: 0.80 E'Medial: 7.16 E/E' Med: 9.90 E' Laterial: 11.70 E/E' Lat: 6.10 Tricuspid Valve TR Pk Talon: 1.99 TR Pk Grad: 16.00 RA Press: 3.00 RVSP: 19.00 Great Vessels Aorta Ao Root-2D: 3.30 2.0-3.7 cm Pulmonary Valve PV Pk Talon: 1.26 Peak PV Grad: 6.00 Updated in Other Vendor System with Status of Final Felipe Rodriguez MD electronically signed on 05/10/2020 6:44:21 PM with status of Final
[2020-05-10] MEDS: polyethylene glycoL 3350 17 GM POWD.PACK PO (08:37)
[2020-05-10] MEDS: Omeprazole 20 MG CAPSULE.DR PO (08:38)
[2020-05-10] MEDS: Apixaban 5 MG TABLET PO ×2 (08:38→21:18)
[2020-05-10] MEDS: Ferrous Sulfate 324 MG TABLET.DR PO ×2 (08:38→17:41)
[2020-05-10] MEDS: Folic Acid 1 MG TABLET PO (08:38)
[2020-05-10] MEDS: 0.9 % Sodium Chloride Flush 3 ML SYRINGE IVFLUSH ×3 (08:38→21:19)
[2020-05-10] MEDS: Sodium Bicarbonate 650 MG TABLET PO ×3 (08:38→21:18)
[2020-05-10] MEDS: Docusate Sodium 100 MG CAPSULE PO ×2 (08:41→21:18)
--- NOTE | 2020-05-10 09:54 | MHC.CM.PN ---
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 his first choice was [facility] nut they have no bed availability currently. i spoke by phone with Mr Nance and reviewed list of nursing facilityies nearby he asked if would Megan sheehan referrals to [facility] and [facility], CLINICAL UPDATES SENT TO THE ABOVE NURSING FACILITIES DISCHARGE PLAN STR HCP CALLING TO DR TRUONG OFFICE FOR HCP COPY TO BE FAXED OVER TO THE CASE MANAGEMENT DEPARTEMENT TRANSPORTATION TO BE FURTHER EXPLORED PATIENT NEW TO [facility]
--- NOTE | 2020-05-10 10:56 | PM.PNNEP ---
Subjective Subjective Date of Service: 05/10/20 Interval history: Seen and examiend. C/O constipation Physical Exam Vital Signs: Vital Signs: Last Vital Signs Temp 97.6 F 05/10/20 07:50 Pulse 65 05/10/20 07:50 Resp 16 05/10/20 07:50 BP 146/74 H 05/10/20 07:50 Pulse Ox 98 05/10/20 07:50 Body Mass Index 42.5 Const: Other: General sick appearing, pale color . Neck is supple no JVD. Right shoulder tenderness to touch, no redness, no bruise, unable to move right shoulder, significant pain with passive movement CVS regular rate rhythm, Respiratory lungs clear to auscultation, no respiratory distress Gastrointestinal abdomen obese, soft, nontender, bowel sounds audible, no rigidity. Extremities bilateral lower extremity redness and edema with dry scab, no open wounds or drainage, pitting edema right leg >left Neuro nonfocal speech clear. General: no acute distress Neck: Neck: Yes normal visual inspection Resp: Auscultation: diminished lung sounds (Diminished lung sounds at bases) Cardio: Other: General sick appearing, pale color . Neck is supple no JVD. Right shoulder tenderness to touch, no redness, no bruise, unable to move right shoulder, significant pain with passive movement CVS regular rate rhythm, Respiratory lungs clear to auscultation, no respiratory distress Gastrointestinal abdomen obese, soft, nontender, bowel sounds audible, no rigidity. Extremities bilateral lower extremity redness and edema with dry scab, no open wounds or drainage, pitting edema right leg >left Neuro nonfocal speech clear. Jugular venous distension: no JVD Rhythm: regular rhythm GI: Palpation (GI): Soft to palpation Skin: Nails: other (Bilateral lower extremity redness and swelling more on the right lower extr) Objective Data Labs CBC & Chem 7: 05/09/20 05:23 05/10/20 06:44 Labs: Laboratory Results - last 24 hr 05/10/20 06:44 Sodium 139 Potassium 3.8 Chloride 109 H Carbon Dioxide 21 L Anion Gap 13 BUN 24 H Creatinine 1.06 Estim Creat Clear Calc 80.3 Estimated GFR > 60 Random Glucose 96 Calcium 7.9 L Microbiology Microbiology Results: Microbiology 05/06/20 13:03 Blood - Venous Blood Culture - Final Strep agalactiae (Grp B) 05/06/20 12:54 Blood - Venous Blood Culture - Final Strep agalactiae (Grp B) Assessment & Plan Assessment and plan (1) Acute deep vein thrombosis (DVT): Problem details: Continue antithrombotic therapy Status: Acute Assessment and Plan: 69-year-old male presented with worsening weakness difficulty standing and increased leg swelling and redness found to have cellulitis and DVT of right lower extremity and ABEL. 1. ABEL: c resolved 2. Anemia: 3. Cellulitis 4. DVT 5. TBFOL with decr intavasc vol 6. L shoulder pain: decr in pain..ques etiol 7. NAGMA: improved with Po NaHCO3 REC: cont NaHCO3 for now; avoid NToxins; po fe but avoid iv fe given infection issues will follow wt team (2) Anemia: Status: Acute (3) Cellulitis: Problem details: Group B strep likely due to cellulitis There is no significant tinea pedis Doubt endocarditis but possible Likely responsible for leukocytosis Status: Acute (4) ABEL (acute kidney injury): Status: Acute (5) Chronic arthritis: Status: Acute (6) Right shoulder pain: Status: Acute Time Spent With Patient Time: Total time spent is greater than 50% in coordination of care (as documented) at patient's floor/unit and/or counseling patient:
[2020-05-10 11:48] VITALS: BP 143/68; PULSE 69; RESP 19; TEMP 36.3; O2SAT 95
[2020-05-10 13:57] LABS: IgA 378 mg/dL (70-320); IgG 1194 mg/dL (600-1540); IgM 68 mg/dL (50-300)
--- NOTE | 2020-05-10 14:29 | HO.PM.IMPN ---
Subjective Subjective Date of Service: 05/10/20 Interval History: Patient complaining of shoulder pain but better this morning, also complaining of bilateral knee pain with history of chronic knee arthritis, seen by Physical therapy and they are recommending short-term rehab, patient moving bowels no GI bleed noted, no other acute issues overnight. Review of Systems General no headache, no dizziness no fever chills. CVS no chest pain, no palpitation. Respiratory no cough, no shortness of breath Gastrointestinal no nausea, no vomiting, no abdominal pain, no constipation Physical Exam Vital Signs: Vital Signs: Last Vital Signs Temp 97.3 F 05/10/20 11:48 Pulse 69 05/10/20 11:48 Resp 19 05/10/20 11:48 BP 143/68 H 05/10/20 11:48 Pulse Ox 95 05/10/20 11:48 Body Mass Index 42.5 General resting in bed, no distress Neck is supple no JVD. CVS regular rate rhythm, Respiratory lungs clear to auscultation, no respiratory distress Gastrointestinal abdomen obese, soft, nontender, bowel sounds audible, no rigidity. Extremities bilateral lower extremity redness and edema with dry scab, no open wounds or drainage, pitting edema right leg >left unchanged improving Right shoulder able to move a little better ,still restricted movement due to pain, no obvious redness or swelling Neuro nonfocal speech clear. Objective Data Current Medications Generic Name Dose Route Start Last Admin Trade Name Freq PRN Reason Stop Dose Admin Apixaban 5 mg 05/08/20 21:00 05/10/20 08:38 Apixaban 5 Mg Tablet PO 5 mg BID EZIO Administration Docusate Sodium 100 mg 05/09/20 21:00 05/10/20 08:41 Docusate Sodium 100 Mg Capsule PO 100 mg BID EZIO Administration Ferrous Sulfate 324 mg 05/08/20 09:30 05/10/20 08:38 Ferrous Sulfate 324 Mg Tablet. PO 324 mg BIDWM EZIO Administration Fluticasone Propionate 2 spray 05/07/20 09:00 05/10/20 10:38 Fluticasone Propionate Nasal 16 Gm Mcdonald NOSTRIL-B Not Given DAILY EZIO Folic Acid 1 mg 05/07/20 09:00 05/10/20 08:38 Folic Acid 1 Mg Tablet PO 1 mg DAILY [facility] Administration Ceftriaxone Sodium 1 gm/ 50 mls @ 100 mls/hr 05/09/20 14:15 05/09/20 15:20 Sodium Chloride IV Infused Q24H EZIO Infusion Omeprazole 20 mg 05/07/20 09:00 05/10/20 08:38 Omeprazole 20 Mg Capsule.Dr PO 20 mg DAILY EZIO Administration Oxycodone HCl 10 mg 05/06/20 18:52 05/10/20 04:57 Oxycodone Hcl Immed Release 5 Mg Tablet PO 10 mg Q6H PRN Administration pain Pharmacy Consult 1 each 05/06/20 13:06 Consult Rx Vancomycin Dosing MISCELLANE DAILY PRN Consult order Pharmacy Consult 1 each 05/06/20 17:41 Consult Rx Perform Med Rec MISCELLANE ONCE PRN Consult order Polyethylene Glycol 17 gm 05/07/20 16:15 05/10/20 08:37 Polyethylene Glycol 3350 17 Gm Powd.Pack PO 17 gm DAILY EZIO Administration Promethazine HCl 12.5 mg 05/06/20 18:52 Promethazine Hcl 25 Mg Tablet PO BID PRN itch Sodium Bicarbonate 650 mg 05/09/20 10:15 05/10/20 08:38 Sodium Bicarbonate 650 Mg Tablet PO 650 mg TID EZIO Administration Sodium Chloride 3 ml 05/07/20 00:00 05/10/20 08:38 0.9 % Sodium Chloride Flush 3 Ml Syringe IVFLUSH 3 ml QSHIFT EZIO Administration Labs CBC & Chem 7: 05/09/20 05:23 05/10/20 06:44 Microbiology Microbiology Results: Microbiology 05/06/20 13:03 Blood - Venous Blood Culture - Final Strep agalactiae (Grp B) 05/06/20 12:54 Blood - Venous Blood Culture - Final Strep agalactiae (Grp B) Assessment and Plan (1) Right shoulder pain: Status: Acute (2) Anemia: Status: Acute (3) Acute deep vein thrombosis (DVT): Problem details: Continue antithrombotic therapy Status: Acute (4) Cellulitis: Problem details: Group B strep likely due to cellulitis There is no significant tinea pedis Doubt endocarditis but possible Likely responsible for leukocytosis Status: Acute (5) ABEL (acute kidney injury): Status: Acute (6) Chronic arthritis: Status: Acute Assessment and Plan: 69-year-old male presented with worsening weakness difficulty standing and increased leg swelling and redness found to have cellulitis and DVT of right lower extremity. Sepsis secondary to lower extremity cellulitis superimposed on stasis dermatitis Leukocytosis resolved, no recurrent fevers no tachycardia or tachypnea Status post IV Zosyn,blood cultures grew Streptococcus agilectae group B patient seen by ID she recommend IV ceftriaxone and echocardiogram Await result of echo and will decide duration of antibiotic. Acute kidney injury on chronic kidney disease stage 3 likely secondary to dehydration secondary to poor p.o. intake, use of NSAID Creatinine returned to normal range after being treated for IV fluid Avoid nephrotoxins, hold Lasix , follow BMP Metabolic acidosis Bicarb trending up continue bicarb replacement as per Nephrology follow BMP DVT right lower extremity Status post IV heparin drip , now on Eliquis 5 mg b.i.d. hematocrit remains stable, stool guaiac negative. Acute on chronic anemia, no active GI bleed noted patient has history of constipation and at times noted some blood on toilet paper Normocytic anemia Hemoglobin hematocrit continues to improve,Iron studies consistent with iron deficiency, serum immunofixation showed no monoclonal protein, B12, folate normal,stool guaiac, negative, follow CBC, Continue PPI cont po iron supplement. Will need close outpatient follow-up of CBC and GI workup. History of chronic arthritis/knee pain also complain of right shoulder pain hold eternacept during infection Shoulder pain better this a.m. MRI attempted but patient did not fit into the machine, since shoulder pain improving , will hold off on imaging studies patient has history of psoriatic and rheumatoid arthritis being followed at rheumatology clinic Continue oxycodone, Tylenol for pain control and hot pack/Aspercreme. Debility weakness/chronic arthritis PT evaluation obtained they recommend short-term rehab
[2020-05-10] MEDS: cefTRIAXone sodium 1 GM in 0.9 % Sodium Chloride 50 ML IV (14:46)
[2020-05-10 16:00] VITALS: BP 144/69; PULSE 66; RESP 17; TEMP 36.9; O2SAT 95
[2020-05-10 20:00] VITALS: BP 149/77; PULSE 64; RESP 18; O2SAT 97
[2020-05-10] MEDS: Trolamine Salicylate 10 % Cream 85 GM TUBE 1 APPL TOPICAL (21:22)
[2020-05-11] VITALS: BP 159/73; PULSE 68; RESP 18; TEMP 36.8; O2SAT 96
[2020-05-11] MEDS: oxyCODONE HCl Immed Release 5 MG TABLET 10 MG PO ×2 (01:14→12:30)
[2020-05-11 03:43] VITALS: BP 142/67; PULSE 65; RESP 18; TEMP 37; O2SAT 95
[2020-05-11 06:54] LABS: Hematocrit 30.5 % (42-52); Hemoglobin 9.5 g/dl (14.0-18.0); Mean Corpuscular HGB Conc 31.1 g/dl (31.0-36.0); Mean Corpuscular Hemoglobin 28.6 pg (27.0-33.0); Mean Corpuscular Volume 91.9 fL (80-98); Mean Platelet Volume 10.4 fL (9.4-12.4); Platelet Count 206 X10*3/uL (160-400); Red Blood Count 3.32 X10*6/uL (4.60-5.80); Red Cell Distribution Width 17.1 % (11.0-16.0); White Blood Count 7.7 X10*3/uL (4.8-10.8)
[2020-05-11 07:08] LABS: Anion Gap 11 (12-20); Blood Urea Nitrogen 23 mg/dL (9-16); Calcium 7.9 mg/dL (8.4-10.2); Carbon Dioxide 24 mmol/L (22-29); Chloride 105 mmol/L (96-108); Creatinine Clr Calc Pharmacy 80.3; Estimated Glomerular Filt Rate > 60; Glucose Random 91 mg/dL (60-115); Sodium 136 mmol/L (135-145)
[2020-05-11 07:49] LABS: Band Neutrophils Percent 3 % (3-5); Eosinophils Absolute Manual 0.2 X10*3/UL (0.0-0.8); Eosinophils Percent Manual 3 % (0-4); Lymphocytes Absolute Manual 1.6 X10*3/uL (0.6-4.8); Lymphocytes Percent Manual 21 % (20-40); Metamyelocytes Absolute 0.2 X10*3/uL; Metamyelocytes Percent 2 %; Monocytes Absolute Manual 1.5 X10*3/uL (0.0-1.2); Monocytes Percent Manual 20 % (2-11); Neutrophils Absolute Manual 4.2 X10*3/uL (2.2-7.9); Neutrophils Percent Manual 51 % (45-73); Platelet Estimate NORMAL (NORMAL); Platelet Morphology Comment NORMAL
[2020-05-11 07:51] LABS: Acanthocytes 1+; Ovalocytes 1+; RBC Morphology NOTED; Rouleau PRESENT; Tear Drop Cells 1+
[2020-05-11 08:00] VITALS: BP 149/78; PULSE 72; RESP 18; TEMP 36.4; O2SAT 95
[2020-05-11] MEDS: 0.9 % Sodium Chloride Flush 3 ML SYRINGE IVFLUSH (08:17)
[2020-05-11] MEDS: Apixaban 5 MG TABLET PO (08:17)
[2020-05-11] MEDS: Folic Acid 1 MG TABLET PO (08:17)
[2020-05-11] MEDS: Docusate Sodium 100 MG CAPSULE PO (08:17)
[2020-05-11] MEDS: Omeprazole 20 MG CAPSULE.DR PO (08:18)
[2020-05-11] MEDS: Ferrous Sulfate 324 MG TABLET.DR PO (08:18)
[2020-05-11] MEDS: Trolamine Salicylate 10 % Cream 85 GM TUBE 1 APPL TOPICAL (11:21)
[2020-05-11] MEDS: polyethylene glycoL 3350 17 GM POWD.PACK PO (11:21)
[2020-05-11] MEDS: Sodium Bicarbonate 650 MG TABLET PO (11:21)
[2020-05-11] MEDS: Fluticasone Propionate Nasal 16 GM SPRAY 2 SPRAY NOSTRIL-B (11:22)
[2020-05-11 11:27] VITALS: BP 114/73; PULSE 77; RESP 19; TEMP 36.3; O2SAT 94
[2020-05-11 12:10] VITALS: BP 114/73; PULSE 77; O2SAT 94
--- NOTE | 2020-05-11 12:56 | PM.PNNEP ---
Subjective Subjective Date of Service: 05/11/20 Interval history: Seen and examiend. Events noted Physical Exam Vital Signs: Vital Signs: Last Vital Signs Temp 97.3 F 05/11/20 11: Pulse 77 05/11/20 12:10 Resp 19 05/11/20 11:27 BP 114/73 05/11/20 12:10 Pulse Ox 94 05/11/20 12:10 Body Mass Index 42.5 Const: Other: General sick appearing, pale color . Neck is supple no JVD. Right shoulder tenderness to touch, no redness, no bruise, unable to move right shoulder, significant pain with passive movement CVS regular rate rhythm, Respiratory lungs clear to auscultation, no respiratory distress Gastrointestinal abdomen obese, soft, nontender, bowel sounds audible, no rigidity. Extremities bilateral lower extremity redness and edema with dry scab, no open wounds or drainage, pitting edema right leg >left Neuro nonfocal speech clear. General: no acute distress Neck: Neck: Yes normal visual inspection Resp: Auscultation: diminished lung sounds (Diminished lung sounds at bases) Cardio: Other: General sick appearing, pale color . Neck is supple no JVD. Right shoulder tenderness to touch, no redness, no bruise, unable to move right shoulder, significant pain with passive movement CVS regular rate rhythm, Respiratory lungs clear to auscultation, no respiratory distress Gastrointestinal abdomen obese, soft, nontender, bowel sounds audible, no rigidity. Extremities bilateral lower extremity redness and edema with dry scab, no open wounds or drainage, pitting edema right leg >left Neuro nonfocal speech clear. Jugular venous distension: no JVD Rhythm: regular rhythm GI: Palpation (GI): Soft to palpation Skin: Nails: other (Bilateral lower extremity redness and swelling more on the right lower extr) Objective Data Labs CBC & Chem 7: 05/11/20 06:12 05/11/20 06:12 Labs: Laboratory Results - last 24 hr 05/07/20 05/11/20 05/11/20 13:07 06:12 06:12 WBC 7.7 RBC 3.32 L Hgb 9.5 L Hct 30.5 L MCV 91.9 MCH 28.6 MCHC 31.1 RDW 17.1 H Plt Count 206 MPV 10.4 Immature Gran % (Auto) Cancelled Neut % (Auto) Cancelled Lymph % (Auto) Cancelled Becker % (Auto) Cancelled Eos % (Auto) Cancelled Baso % (Auto) Cancelled Lymph # (Auto) Cancelled Becker # (Auto) Cancelled Eos # (Auto) Cancelled Baso # (Auto) Cancelled Abs Immat Gran (auto) Cancelled Absolute Neuts (auto) Cancelled Absolute Nucleated RBC 0.000 Nucleated RBC % (auto) 0.0 Neutrophils % (Manual) 51 Band Neutrophils % 3 Lymphocytes % (Manual) 21 Monocytes % (Manual) 20 H Eosinophils % (Manual) 3 Metamyelocytes % 2 Abs Neuts (Manual) 4.2 Lymphocytes # (Manual) 1.6 Monocytes # (Manual) 1.5 H Eosinophils # (Manual) 0.2 Metamyelocytes # 0.2 Platelet Estimate NORMAL Plt Morphology Comment NORMAL RBC Morphology NOTED Tear Drop Cells 1+ Ovalocytes 1+ Acanthocytes (Spur) 1+ Rouleaux PRESENT Sodium 136 Potassium 4.0 Chloride 105 Carbon Dioxide 24 Anion Gap 11 L BUN 23 H Creatinine 1.06 Estim Creat Clear Calc 80.3 Estimated GFR > 60 Random Glucose 91 Calcium 7.9 L IgG Total 1194 IgA Total 378 H IgM 68 ANGIE Interpretation SEE NOTE Microbiology Microbiology Results: Microbiology 05/06/20 13:03 Blood - Venous Blood Culture - Final Strep agalactiae (Grp B) 05/06/20 12:54 Blood - Venous Blood Culture - Final Strep agalactiae (Grp B) Assessment & Plan Assessment and plan (1) Acute deep vein thrombosis (DVT): Problem details: Continue antithrombotic therapy Status: Acute Assessment and Plan: 69-year-old male presented with worsening weakness difficulty standing and increased leg swelling and redness found to have cellulitis and DVT of right lower extremity and ABEL. 1. ABEL: c resolved 2. Anemia: 3. Cellulitis 4. DVT 5. TBFOL with decr intavasc vol 6. L shoulder pain: decr in pain..ques etiol 7. NAGMA: resolved with Po NaHCO3 REC: d/c NaHCO3; avoid NToxins; po fe but avoid iv fe given infection issues; outp f/u with me re: episode of ABEL ( I will arrange) will follow wtih team (2) Anemia: Status: Acute (3) Cellulitis: Problem details: Group B strep likely due to cellulitis There is no significant tinea pedis Doubt endocarditis but possible Likely responsible for leukocytosis Status: Acute (4) ABEL (acute kidney injury): Status: Acute (5) Chronic arthritis: Status: Acute (6) Right shoulder pain: Status: Acute Time Spent With Patient Time: Total time spent is greater than 50% in coordination of care (as documented) at patient's floor/unit and/or counseling patient:
[2020-05-11 14:15] LABS: COVID-19 Test Negative (Negative)
--- NOTE | 2020-05-11 14:30 | MHC.CM.PN ---
IMM 05/11/20, PT DISCHARGING TODAY TO [facility] VIA BLS TRANSPORT WITH [facility] AT 3:30PM, PER PT REQUEST CM CALLED [id number] AND HCP TO LET HER KNOW ABOUT PT DISCHARGE.
--- NOTE | 2020-05-11 14:50 | PM.DS ---
DS: Providers Provider Date of Service: 05/11/20 Date of admission: 05/06/20 17:35 Primary care physician: Meng Nunez MD Consults: 05/07/20 10:43 Consult to Nephrology Routine Consulting Provider: Tom Barker Reason for consultation: abel 05/07/20 18:43 Consult to Infectious Diseases Routine Consulting Provider: Helga Gauthier Reason for consultation: bacteremia Has provider been notified: No DS: Diagnosis Discharge Diagnosis (1) Acute deep vein thrombosis (DVT): Status: Acute Problem details: Continue antithrombotic therapy (2) Anemia: Status: Acute (3) Cellulitis: Status: Acute Problem details: Group B strep likely due to cellulitis There is no significant tinea pedis Doubt endocarditis but possible Likely responsible for leukocytosis (4) ABEL (acute kidney injury): Status: Acute (5) Chronic arthritis: Status: Acute (6) Right shoulder pain: Status: Acute DS: Medications Discharge Medications Home Medications: Home Medications Medication Instructions Recorded Confirmed etanercept 50 mg/mL (1 mL) 50 mg SUBCUT SA 05/04/20 05/06/20 subcutaneous syringe folic acid 1 mg tablet 1 mg PO DAILY 05/04/20 05/06/20 omeprazole 20 mg capsule,delayed 20 mg PO DAILY 05/04/20 05/06/20 release promethazine 25 mg tablet 12.5 mg PO BID PRN 05/04/20 05/06/20 Previous Rx's Medication Instructions Recorded fluticasone propionate 50 2 spray INTRANASAL DAILY #15.8 ml 02/03/20 mcg/actuation nasal spray,suspension furosemide 20 mg tablet 20 mg PO BID #90 tab 03/31/20 ibuprofen 600 mg tablet 600 mg PO Q8H PRN #90 tab 05/02/20 oxycodone 5 mg tablet 10 mg PO Q6H PRN #240 tab 05/04/20 DS: Summary Hospital Course Hospital Course: History of presenting illness Chief Complaint: weakness swelling 69-year-old male morbidly obese , with stasis dermatitis, chronic arthritis presented with weakness and increased leg swelling, patient reported feeling weak and noticed increased swelling and redness of lower extremity more on the right side, patient also reported difficulty getting out of bed since last Saturday and patient was not able to eat and drink as patient was not able to stand up and walk, at baseline patient is able to walk to bathroom but not much functional , patient also reported few episodes of blood in stool on and off and attributed it from constipation, patient is taking Motrin for his arthritis, patient was brought to ER , in the ER found to have leukocytosis with WBCs around 22 , creatinine 2.0 , labs from April, shows creatinine around 1.02 , DVT study of right lower extremity was positive, found to have bilateral lower extremity redness and erythema superimposed on chronic dermatitis, patient was started on heparin drip, received 1 dose of Vanco and Zosyn and inpatient admission was requested Patient denies any fever chills or sick contact, patient was tested negative for COVID Hospital course 69-year-old male presented with worsening weakness, difficulty standing and increased leg swelling and redness found to have cellulitis, sepsis and DVT of right lower extremity. Sepsis secondary to lower extremity cellulitis superimposed on stasis dermatitis patient treated with IV Zosyn his blood culture grew Streptococcus a Juul acting group B therefore antibiotic was changed to IV ceftriaxone patient feel had no recurrent fevers during the course of hospitalization his leukocytosis resolved currently he is doing better is now being discharged home on total 2 weeks of a by mouth Ceftin patient echocardiogram showed no vegetation Acute kidney injury on chronic kidney disease stage 3 likely secondary to dehydration secondary to poor p.o. intake, use of NSAID and being on Lasix patient treated with IV fluid renal function has normalized, patient can resume his Lasix after 2 days Metabolic acidosis Resolved was likely due to renal failure DVT right lower extremity Status post IV heparin drip , now on Eliquis 5 mg b.i.d. hematocrit remains stable, stool guaiac negative. Acute on chronic anemia, no active GI bleed likely due to chronic kidney disease,Iron studies consistent with iron deficiency, serum immunofixation showed no monoclonal protein, B12, folate normal,stool guaiac, negative, follow CBC, Continue PPI and iron supplement once patient is stable will need GI workup. History of chronic arthritis/knee pain also complained of right shoulder pain he has history of psoriatic and rheumatoid arthritis and being followed arthritis center will hold eternacept during infection Shoulder pain is improving MRI of shoulder was attempted but patient did not fit into the machine, since shoulder pain improving , will hold off on imaging studies recommend outpatient rheumatology follow-up,Continue oxycodone, Tylenol for pain control and hot pack/Aspercreme. Patient received [facility] Debility weakness/chronic arthritis PT evaluation obtained they recommend short-term rehab therefore patient is being discharged to rehab facility. Time Spent with Patient Time attestation: Total time spent providing and/or coordinating discharge services: Discharge coordination time: Greater than 30 minutes Physical Exam Vital Signs: Vital Signs: Last Vital Signs Temp 97.3 F 05/11/20 11:27 Pulse 77 05/11/20 12:10 Resp 19 05/11/20 11:27 BP 114/73 05/11/20 12:10 Pulse Ox 94 05/11/20 12:10 Body Mass Index 42.5 General resting in bed, no distress Neck is supple no JVD. CVS regular rate rhythm, Respiratory lungs clear to auscultation, no respiratory distress Gastrointestinal abdomen obese, soft, nontender, bowel sounds audible, no rigidity. Extremities bilateral lower extremity redness and edema with dry scab, no open wounds or drainage, no pitting edema right leg >left improving Right shoulder able to move a little better ,still restricted movement due to pain, no obvious redness or swelling Neuro nonfocal speech clear. DS: Data Data Completed and Pending Labs on day of discharge: Laboratory Tests 05/06/20 05/06/20 05/06/20 12:54 12:54 12:54 WBC 22.4 H RBC 3.25 L Hgb 9.5 L Hct 29.7 L MCV 91.4 MCH 29.2 MCHC 32.0 RDW 17.2 H Plt Count 197 MPV 10.2 Immature Gran % (Auto) Cancelled Neut % (Auto) Cancelled Lymph % (Auto) Cancelled [place] % (Auto) Cancelled Eos % (Auto) Cancelled Baso % (Auto) Cancelled Lymph # (Auto) Cancelled [place] # (Auto) Cancelled Eos # (Auto) Cancelled Baso # (Auto) Cancelled Abs Immat Gran (auto) Cancelled Absolute Neuts (auto) Cancelled Absolute Nucleated RBC 0.000 Nucleated RBC % (auto) 0.0 Neutrophils % (Manual) 77 H Band Neutrophils % 20 H Lymphocytes % (Manual) 2 L Monocytes % (Manual) 1 L Eosinophils % (Manual) Metamyelocytes % Abs Neuts (Manual) 21.7 H Lymphocytes # (Manual) 0.4 L Monocytes # (Manual) 0.2 Eosinophils # (Manual) Metamyelocytes # Toxic Vacuolation PRESENT Platelet Estimate NORMAL Plt Morphology Comment NORMAL RBC Morphology NOTED Tear Drop Cells Ovalocytes Acanthocytes (Spur) Rouleaux PRESENT Smear Tech's Comments PT 14.9 H INR 1.3 H APTT 33.2 PTT (Heparin Protocol) Hold Blue Top SEE NOTE Sodium 140 Potassium 4.1 Chloride 110 H Carbon Dioxide 17 L Anion Gap 17 BUN 57 H Creatinine 2.03 H Estim Creat Clear Calc 41.9 Estimated GFR 33 Random Glucose 167 H Lactic Acid Calcium 8.5 Magnesium 2.4 Iron TIBC % Saturation Unsat Iron Binding Ferritin Total Bilirubin 0.5 Direct Bilirubin 0.3 AST 33 ALT 19 Alkaline Phosphatase 85 C-Reactive Protein 31.00 H B-Natriuretic Peptide Total Protein 6.5 Albumin 3.2 L Vitamin B12 Folate U Random Total Protein Ur Random Sodium Urine Creatinine Stool Occult Blood IgG Total IgA Total IgM ANGIE Interpretation Coronavirus (PCR) COVID-19 (NELLIE) COVID-19 Clin Com Influenza Type A (PCR) Influenza Type B (PCR) RSV RNA Qual (PCR) Blood Type Antibody Screen 05/06/20 05/06/20 05/06/20 12:54 13:03 13:04 WBC RBC Hgb Hct MCV MCH MCHC RDW Plt Count MPV Immature Gran % (Auto) Neut % (Auto) Lymph % (Auto) [place] % (Auto) Eos % (Auto) Baso % (Auto) Lymph # (Auto) [place] # (Auto) Eos # (Auto) Baso # (Auto) Abs Immat Gran (auto) Absolute Neuts (auto) Absolute Nucleated RBC Nucleated RBC % (auto) Neutrophils % (Manual) Band Neutrophils % Lymphocytes % (Manual) Monocytes % (Manual) Eosinophils % (Manual) Metamyelocytes % Abs Neuts (Manual) Lymphocytes # (Manual) Monocytes # (Manual) Eosinophils # (Manual) Metamyelocytes # Toxic Vacuolation Platelet Estimate Plt Morphology Comment RBC Morphology Tear Drop Cells Ovalocytes Acanthocytes (Spur) Rouleaux Smear Tech's Comments PT INR APTT PTT (Heparin Protocol) Hold Blue Top Sodium Potassium Chloride Carbon Dioxide Anion Gap BUN Creatinine Estim Creat Clear Calc Estimated GFR Random Glucose Lactic Acid 1.5 Calcium Magnesium Iron TIBC % Saturation Unsat Iron Binding Ferritin Total Bilirubin Direct Bilirubin AST ALT Alkaline Phosphatase C-Reactive Protein B-Natriuretic Peptide 222 H Total Protein Albumin Vitamin B12 Folate U Random Total Protein Ur Random Sodium Urine Creatinine Stool Occult Blood IgG Total IgA Total IgM ANGIE Interpretation Coronavirus (PCR) NEGATIVE COVID-19 (NELLIE) COVID-19 Clin Com Influenza Type A (PCR) NEGATIVE Influenza Type B (PCR) NEGATIVE RSV RNA Qual (PCR) NEGATIVE Blood Type Antibody Screen 05/06/20 05/06/20 05/06/20 13:23 13:23 14:09 WBC RBC Hgb Hct MCV MCH MCHC RDW Plt Count MPV Immature Gran % (Auto) Neut % (Auto) Lymph % (Auto) [place] % (Auto) Eos % (Auto) Baso % (Auto) Lymph # (Auto) [place] # (Auto) Eos # (Auto) Baso # (Auto) Abs Immat Gran (auto) Absolute Neuts (auto) Absolute Nucleated RBC Nucleated RBC % (auto) Neutrophils % (Manual) Band Neutrophils % Lymphocytes % (Manual) Monocytes % (Manual) Eosinophils % (Manual) Metamyelocytes % Abs Neuts (Manual) Lymphocytes # (Manual) Monocytes # (Manual) Eosinophils # (Manual) Metamyelocytes # Toxic Vacuolation Platelet Estimate Plt Morphology Comment RBC Morphology Tear Drop Cells Ovalocytes Acanthocytes (Spur) Rouleaux Smear Tech's Comments PT INR APTT PTT (Heparin Protocol) Hold Blue Top Sodium Potassium Chloride Carbon Dioxide Anion Gap BUN Creatinine Estim Creat Clear Calc Estimated GFR Random Glucose Lactic Acid Calcium Magnesium Iron TIBC % Saturation Unsat Iron Binding Ferritin Total Bilirubin Direct Bilirubin AST ALT Alkaline Phosphatase C-Reactive Protein B-Natriuretic Peptide 219 H Total Protein Albumin Vitamin B12 Folate U Random Total Protein Ur Random Sodium Urine Creatinine Stool Occult Blood NEG IgG Total IgA Total IgM ANGIE Interpretation Coronavirus (PCR) COVID-19 (NELLIE) COVID-19 Clin Com Influenza Type A (PCR) Influenza Type B (PCR) RSV RNA Qual (PCR) Blood Type A Positive Antibody Screen NEGATIVE 05/07/20 05/07/20 05/07/20 00:35 05:02 05:02 WBC 16.5 H RBC 3.28 L Hgb 9.6 L Hct 30.8 L MCV 93.9 MCH 29.3 MCHC 31.2 RDW 17.4 H Plt Count 170 MPV 10.6 Immature Gran % (Auto) Neut % (Auto) Lymph % (Auto) [place] % (Auto) Eos % (Auto) Baso % (Auto) Lymph # (Auto) [place] # (Auto) Eos # (Auto) Baso # (Auto) Abs Immat Gran (auto) Absolute Neuts (auto) Absolute Nucleated RBC 0.000 Nucleated RBC % (auto) 0.0 Neutrophils % (Manual) Band Neutrophils % Lymphocytes % (Manual) Monocytes % (Manual) Eosinophils % (Manual) Metamyelocytes % Abs Neuts (Manual) Lymphocytes # (Manual) Monocytes # (Manual) Eosinophils # (Manual) Metamyelocytes # Toxic Vacuolation Platelet Estimate Plt Morphology Comment RBC Morphology Tear Drop Cells Ovalocytes Acanthocytes (Spur) Rouleaux Smear Tech's Comments PT 13.6 H INR 1.1 APTT PTT (Heparin Protocol) 85.9 H Hold Blue Top Sodium Potassium Chloride Carbon Dioxide Anion Gap BUN Creatinine Estim Creat Clear Calc Estimated GFR Random Glucose Lactic Acid Calcium Magnesium Iron TIBC % Saturation Unsat Iron Binding Ferritin Total Bilirubin Direct Bilirubin AST ALT Alkaline Phosphatase C-Reactive Protein B-Natriuretic Peptide Total Protein Albumin Vitamin B12 Folate U Random Total Protein Ur Random Sodium Urine Creatinine Stool Occult Blood IgG Total IgA Total IgM ANGIE Interpretation Coronavirus (PCR) COVID-19 (NELLIE) COVID-19 Clin Com Influenza Type A (PCR) Influenza Type B (PCR) RSV RNA Qual (PCR) Blood Type Antibody Screen 05/07/20 05/07/20 05/07/20 05:02 06:55 13:06 WBC RBC Hgb Hct MCV MCH MCHC RDW Plt Count MPV Immature Gran % (Auto) Neut % (Auto) Lymph % (Auto) [place] % (Auto) Eos % (Auto) Baso % (Auto) Lymph # (Auto) [place] # (Auto) Eos # (Auto) Baso # (Auto) Abs Immat Gran (auto) Absolute Neuts (auto) Absolute Nucleated RBC Nucleated RBC % (auto) Neutrophils % (Manual) Band Neutrophils % Lymphocytes % (Manual) Monocytes % (Manual) Eosinophils % (Manual) Metamyelocytes % Abs Neuts (Manual) Lymphocytes # (Manual) Monocytes # (Manual) Eosinophils # (Manual) Metamyelocytes # Toxic Vacuolation Platelet Estimate Plt Morphology Comment RBC Morphology Tear Drop Cells Ovalocytes Acanthocytes (Spur) Rouleaux Smear Tech's Comments PT INR APTT PTT (Heparin Protocol) 53.5 D 35.7 L D Hold Blue Top Sodium 143 Potassium 3.5 Chloride 112 H Carbon Dioxide 19 L Anion Gap 16 BUN 46 H Creatinine 1.65 H Estim Creat Clear Calc 51.6 Estimated GFR 41 Random Glucose 96 D Lactic Acid Calcium 8.0 L Magnesium Iron TIBC % Saturation Unsat Iron Binding Ferritin Total Bilirubin Direct Bilirubin AST ALT Alkaline Phosphatase C-Reactive Protein B-Natriuretic Peptide Total Protein Albumin Vitamin B12 Folate U Random Total Protein Ur Random Sodium Urine Creatinine Stool Occult Blood IgG Total IgA Total IgM ANGIE Interpretation Coronavirus (PCR) COVID-19 (NELLIE) COVID-19 Clin Com Influenza Type A (PCR) Influenza Type B (PCR) RSV RNA Qual (PCR) Blood Type Antibody Screen 05/07/20 05/07/20 05/07/20 13:07 13:07 13:07 WBC RBC Hgb Hct MCV MCH MCHC RDW Plt Count MPV Immature Gran % (Auto) Neut % (Auto) Lymph % (Auto) [place] % (Auto) Eos % (Auto) Baso % (Auto) Lymph # (Auto) [place] # (Auto) Eos # (Auto) Baso # (Auto) Abs Immat Gran (auto) Absolute Neuts (auto) Absolute Nucleated RBC Nucleated RBC % (auto) Neutrophils % (Manual) Band Neutrophils % Lymphocytes % (Manual) Monocytes % (Manual) Eosinophils % (Manual) Metamyelocytes % Abs Neuts (Manual) Lymphocytes # (Manual) Monocytes # (Manual) Eosinophils # (Manual) Metamyelocytes # Toxic Vacuolation Platelet Estimate Plt Morphology Comment RBC Morphology Tear Drop Cells Ovalocytes Acanthocytes (Spur) Rouleaux Smear Tech's Comments PT INR APTT PTT (Heparin Protocol) Hold Blue Top Sodium Potassium Chloride Carbon Dioxide Anion Gap BUN Creatinine Estim Creat Clear Calc Estimated GFR Random Glucose Lactic Acid Calcium Magnesium Iron 8 L TIBC 218 L % Saturation 4 L Unsat Iron Binding 210 Ferritin 287 H Total Bilirubin Direct Bilirubin AST ALT Alkaline Phosphatase C-Reactive Protein B-Natriuretic Peptide Total Protein Albumin Vitamin B12 982 H Folate 19.0 U Random Total Protein Ur Random Sodium Urine Creatinine Stool Occult Blood IgG Total 1194 IgA Total 378 H IgM 68 ANGIE Interpretation SEE NOTE Coronavirus (PCR) COVID-19 (NELLIE) COVID-19 Clin Com Influenza Type A (PCR) Influenza Type B (PCR) RSV RNA Qual (PCR) Blood Type Antibody Screen 05/07/20 05/07/20 05/07/20 13:07 14:00 14:00 WBC RBC Hgb Hct MCV MCH MCHC RDW Plt Count MPV Immature Gran % (Auto) Neut % (Auto) Lymph % (Auto) [place] % (Auto) Eos % (Auto) Baso % (Auto) Lymph # (Auto) [place] # (Auto) Eos # (Auto) Baso # (Auto) Abs Immat Gran (auto) Absolute Neuts (auto) Absolute Nucleated RBC Nucleated RBC % (auto) Neutrophils % (Manual) Band Neutrophils % Lymphocytes % (Manual) Monocytes % (Manual) Eosinophils % (Manual) Metamyelocytes % Abs Neuts (Manual) Lymphocytes # (Manual) Monocytes # (Manual) Eosinophils # (Manual) Metamyelocytes # Toxic Vacuolation Platelet Estimate Plt Morphology Comment RBC Morphology Tear Drop Cells Ovalocytes Acanthocytes (Spur) Rouleaux Smear Tech's Comments PT INR APTT PTT (Heparin Protocol) Hold Blue Top Sodium Potassium Chloride Carbon Dioxide Anion Gap BUN Creatinine Estim Creat Clear Calc Estimated GFR Random Glucose Lactic Acid Calcium Magnesium Iron TIBC % Saturation Unsat Iron Binding Ferritin Total Bilirubin Direct Bilirubin AST ALT Alkaline Phosphatase C-Reactive Protein B-Natriuretic Peptide Total Protein Albumin Vitamin B12 Folate U Random Total Protein 31 H Ur Random Sodium 109.0 Urine Creatinine Stool Occult Blood IgG Total Cancelled IgA Total Cancelled IgM Cancelled ANGIE Interpretation Cancelled Coronavirus (PCR) COVID-19 (NELLIE) COVID-19 Clin Com Influenza Type A (PCR) Influenza Type B (PCR) RSV RNA Qual (PCR) Blood Type Antibody Screen 05/07/20 05/07/20 05/07/20 14:00 21:32 23:30 WBC RBC Hgb Hct MCV MCH MCHC RDW Plt Count MPV Immature Gran % (Auto) Neut % (Auto) Lymph % (Auto) [place] % (Auto) Eos % (Auto) Baso % (Auto) Lymph # (Auto) [place] # (Auto) Eos # (Auto) Baso # (Auto) Abs Immat Gran (auto) Absolute Neuts (auto) Absolute Nucleated RBC Nucleated RBC % (auto) Neutrophils % (Manual) Band Neutrophils % Lymphocytes % (Manual) Monocytes % (Manual) Eosinophils % (Manual) Metamyelocytes % Abs Neuts (Manual) Lymphocytes # (Manual) Monocytes # (Manual) Eosinophils # (Manual) Metamyelocytes # Toxic Vacuolation Platelet Estimate Plt Morphology Comment RBC Morphology Tear Drop Cells Ovalocytes Acanthocytes (Spur) Rouleaux Smear Tech's Comments PT INR APTT PTT (Heparin Protocol) 130.5 H* D 42.6 L D Hold Blue Top Sodium Potassium Chloride Carbon Dioxide Anion Gap BUN Creatinine Estim Creat Clear Calc Estimated GFR Random Glucose Lactic Acid Calcium Magnesium Iron TIBC % Saturation Unsat Iron Binding Ferritin Total Bilirubin Direct Bilirubin AST ALT Alkaline Phosphatase C-Reactive Protein B-Natriuretic Peptide Total Protein Albumin Vitamin B12 Folate U Random Total Protein Ur Random Sodium Urine Creatinine 52.85 Stool Occult Blood IgG Total IgA Total IgM ANGIE Interpretation Coronavirus (PCR) COVID-19 (NELLIE) COVID-19 Clin Com Influenza Type A (PCR) Influenza Type B (PCR) RSV RNA Qual (PCR) Blood Type Antibody Screen 05/08/20 05/08/20 05/08/20 06:42 06:42 06:42 WBC 11.4 H RBC 3.21 L Hgb 9.3 L Hct 30.3 L MCV 94.4 MCH 29.0 MCHC 30.7 L RDW 17.2 H Plt Count 167 MPV 10.6 Immature Gran % (Auto) 0.3 Neut % (Auto) 82.4 H Lymph % (Auto) 11.1 L [place] % (Auto) 5.3 Eos % (Auto) 0.7 Baso % (Auto) 0.2 Lymph # (Auto) 1.3 [place] # (Auto) 0.6 Eos # (Auto) 0.1 Baso # (Auto) 0.0 Abs Immat Gran (auto) 0.04 H Absolute Neuts (auto) 9.4 H Absolute Nucleated RBC 0.000 Nucleated RBC % (auto) 0.0 Neutrophils % (Manual) Band Neutrophils % Lymphocytes % (Manual) Monocytes % (Manual) Eosinophils % (Manual) Metamyelocytes % Abs Neuts (Manual) Lymphocytes # (Manual) Monocytes # (Manual) Eosinophils # (Manual) Metamyelocytes # Toxic Vacuolation Platelet Estimate Plt Morphology Comment RBC Morphology Tear Drop Cells Ovalocytes Acanthocytes (Spur) Rouleaux Smear Tech's Comments PT INR APTT PTT (Heparin Protocol) 34.8 L Hold Blue Top Sodium 143 Potassium 3.5 Chloride 115 H Carbon Dioxide 17 L Anion Gap 15 BUN 34 H Creatinine 1.26 Estim Creat Clear Calc 67.6 Estimated GFR 56 Random Glucose 96 Lactic Acid Calcium 7.6 L Magnesium Iron TIBC % Saturation Unsat Iron Binding Ferritin Total Bilirubin Direct Bilirubin AST ALT Alkaline Phosphatase C-Reactive Protein B-Natriuretic Peptide Total Protein Albumin Vitamin B12 Folate U Random Total Protein Ur Random Sodium Urine Creatinine Stool Occult Blood IgG Total IgA Total IgM ANGIE Interpretation Coronavirus (PCR) COVID-19 (NELLIE) COVID-19 Clin Com Influenza Type A (PCR) Influenza Type B (PCR) RSV RNA Qual (PCR) Blood Type Antibody Screen 05/09/20 05/09/20 05/10/20 05:23 05:23 06:44 WBC 8.9 RBC 3.58 L Hgb 10.5 L Hct 33.5 L MCV 93.6 MCH 29.3 MCHC 31.3 RDW 17.4 H Plt Count 198 MPV 11.7 Immature Gran % (Auto) 1.1 H Neut % (Auto) 68.1 Lymph % (Auto) 17.2 L [place] % (Auto) 8.8 Eos % (Auto) 4.6 H Baso % (Auto) 0.2 Lymph # (Auto) 1.5 [place] # (Auto) 0.8 Eos # (Auto) 0.4 Baso # (Auto) 0.0 Abs Immat Gran (auto) 0.10 H Absolute Neuts (auto) 6.1 Absolute Nucleated RBC 0.000 Nucleated RBC % (auto) 0.0 Neutrophils % (Manual) Band Neutrophils % Lymphocytes % (Manual) Monocytes % (Manual) Eosinophils % (Manual) Metamyelocytes % Abs Neuts (Manual) Lymphocytes # (Manual) Monocytes # (Manual) Eosinophils # (Manual) Metamyelocytes # Toxic Vacuolation Platelet Estimate Plt Morphology Comment RBC Morphology Tear Drop Cells Ovalocytes Acanthocytes (Spur) Rouleaux Smear Tech's Comments VERIFIED PT INR APTT PTT (Heparin Protocol) Hold Blue Top Sodium 140 139 Potassium 4.4 D 3.8 Chloride 111 H 109 H Carbon Dioxide 15 L 21 L Anion Gap 18 13 BUN 31 H 24 H Creatinine 1.19 1.06 Estim Creat Clear Calc 71.5 80.3 Estimated GFR > 60 > 60 Random Glucose 90 96 Lactic Acid Calcium 7.9 L 7.9 L Magnesium Iron TIBC % Saturation Unsat Iron Binding Ferritin Total Bilirubin Direct Bilirubin AST ALT Alkaline Phosphatase C-Reactive Protein B-Natriuretic Peptide Total Protein Albumin Vitamin B12 Folate U Random Total Protein Ur Random Sodium Urine Creatinine Stool Occult Blood IgG Total IgA Total IgM ANGIE Interpretation Coronavirus (PCR) COVID-19 (NELLIE) COVID-19 Clin Com Influenza Type A (PCR) Influenza Type B (PCR) RSV RNA Qual (PCR) Blood Type Antibody Screen 05/11/20 05/11/20 05/11/20 06:12 06:12 13:30 WBC 7.7 RBC 3.32 L Hgb 9.5 L Hct 30.5 L MCV 91.9 MCH 28.6 MCHC 31.1 RDW 17.1 H Plt Count 206 MPV 10.4 Immature Gran % (Auto) Cancelled Neut % (Auto) Cancelled Lymph % (Auto) Cancelled [place] % (Auto) Cancelled Eos % (Auto) Cancelled Baso % (Auto) Cancelled Lymph # (Auto) Cancelled [place] # (Auto) Cancelled Eos # (Auto) Cancelled Baso # (Auto) Cancelled Abs Immat Gran (auto) Cancelled Absolute Neuts (auto) Cancelled Absolute Nucleated RBC 0.000 Nucleated RBC % (auto) 0.0 Neutrophils % (Manual) 51 Band Neutrophils % 3 Lymphocytes % (Manual) 21 Monocytes % (Manual) 20 H Eosinophils % (Manual) 3 Metamyelocytes % 2 Abs Neuts (Manual) 4.2 Lymphocytes # (Manual) 1.6 Monocytes # (Manual) 1.5 H Eosinophils # (Manual) 0.2 Metamyelocytes # 0.2 Toxic Vacuolation Platelet Estimate NORMAL Plt Morphology Comment NORMAL RBC Morphology NOTED Tear Drop Cells 1+ Ovalocytes 1+ Acanthocytes (Spur) 1+ Rouleaux PRESENT Smear Tech's Comments PT INR APTT PTT (Heparin Protocol) Hold Blue Top Sodium 136 Potassium 4.0 Chloride 105 Carbon Dioxide 24 Anion Gap 11 L BUN 23 H Creatinine 1.06 Estim Creat Clear Calc 80.3 Estimated GFR > 60 Random Glucose 91 Lactic Acid Calcium 7.9 L Magnesium Iron TIBC % Saturation Unsat Iron Binding Ferritin Total Bilirubin Direct Bilirubin AST ALT Alkaline Phosphatase C-Reactive Protein B-Natriuretic Peptide Total Protein Albumin Vitamin B12 Folate U Random Total Protein Ur Random Sodium Urine Creatinine Stool Occult Blood IgG Total IgA Total IgM ANGIE Interpretation Coronavirus (PCR) COVID-19 (NELLIE) Negative COVID-19 Clin Com See Note Influenza Type A (PCR) Influenza Type B (PCR) RSV RNA Qual (PCR) Blood Type Antibody Screen Discharge Plan Discharge Patient Disposition: Xfer SNF Referrals: [facility] [Other] (BLS transportation) [facility] [Outside] (Short Term Rehab) Meng Nunez MD [Primary Care Provider] - Discharge Medications: New polyethylene glycol 3350 17 gram Powder In Packet 17 g PO DAILY Qty: 30 RF: 0 ferrous sulfate 324 mg (65 mg iron) Tablet,Delayed Release (Dr/Ec) 324 mg PO BIDWM Qty: 60 RF: 0 Eliquis 5 mg Tablet 5 mg PO BID Qty: 60 RF: 0 docusate sodium 100 mg Capsule 100 mg PO NEEDED Qty: 60 RF: 0 trolamine salicylate 10 % Cream 1 appl topical BID Qty: 1 RF: 0 cefuroxime axetil 500 mg Tablet 500 mg PO Q12H Qty: 20 RF: 0 Continued fluticasone propionate 50 mcg/actuation spray,suspension 2 spray intranasal DAILY Qty: 15.8 RF: 8 folic acid 1 mg tablet 1 mg PO DAILY RF: 0 promethazine 25 mg tablet 12.5 mg PO BID PRN (Reason: itch) RF: 0 omeprazole 20 mg capsule,delayed release(DR/EC) 20 mg PO DAILY RF: 0 oxycodone 5 mg tablet 10 mg PO Q6H PRN (Reason: pain) Qty: 240 RF: 0 Held furosemide 20 mg tablet 20 mg PO BID Qty: 90 RF: 8 Hold Instructions: Resume on 05/13/20. Discontinued ibuprofen 600 mg tablet 600 mg PO Q8H PRN (Reason: pain) Qty: 90 RF: 8 Enbrel 50 mg/mL (1 mL) syringe 50 mg subcut SA RF: 0 Discharge Orders: Discharge Order (Routine); Ordered 05/11/20 Ordered By: Harsha Cotter Diet: low salt diet Activity on Discharge: As tolerated Stand Alone Forms: Patient Portal Discharge page Care Plan Goals: Physical therapy, resume Lasix after 2 days Health Concerns: Chronic arthritis, right leg DVT and a bacteremia Plan of Treatment: Outpatient follow-up with primary care physician and Rheumatology hold Enbrel for next 10 days
--- NOTE | 2020-05-11 15:53 | PC.NURSE ---
Report called to RN at [facility] at this time. EMS on unit currently to bring patient to Short term facility. Patient aware and agrees with transfer. VSS.
== END 2020-05-11 16:02 | disposition skilled nursing facility (03) | DRG 872 ==
LOC: HO.ED 17:50 → HO.EDOVER 18:20 → HO.IMC 18:24 → HO.S3 05-09 15:25
PROVIDERS: Internal Medicine; Internal Medicine Nephrology; Physician Assistant; Admitting Provider Internal Medicine; Emergency Provider Internal Medicine; PCP Internal Medicine; Visit Provider Hospitalist
DX: A40.1 Sepsis due to streptococcus, group B (principal); I82.411 Acute embolism and thrombosis of right femoral vein; N17.9 Acute kidney failure, unspecified; L03.115 Cellulitis of right lower limb; E87.2 Acidosis; Z68.41 Body mass index [BMI] 40.0-44.9, adult; Z20.822 Contact with and (suspected) exposure to COVID-19; E86.0 Dehydration; I87.323 Chronic venous hypertension (idiopathic) with inflammation of bilateral lower extremity; N18.30 Chronic kidney disease, stage 3 unspecified; B95.1 Streptococcus, group B, as the cause of diseases classified elsewhere; I12.9 Hypertensive chronic kidney disease with stage 1 through stage 4 chronic kidney disease, or unspecified chronic kidney disease; M17.0 Bilateral primary osteoarthritis of knee; D63.1 Anemia in chronic kidney disease; E66.01 Morbid (severe) obesity due to excess calories; M25.511 Pain in right shoulder; Z79.01 Long term (current) use of anticoagulants; Z79.51 Long term (current) use of inhaled steroids; Z79.891 Long term (current) use of opiate analgesic; Z79.899 Other long term (current) drug therapy; Z66 Do not resuscitate
CPT/HCPCS: 0241U; 36415; 70450; 71045; 80048; 80076; 82272; 82607; 82728; 82746; 82784; 83540; 83605; 83735; 83880; 84156; 84300; 85007; 85025; 85027; 85610; 85730; 86140; 86334; 86850; 86900; 86901; 87040; 87147; 87186; 87205; 87635; 93005; 93306; 93970; 96361; 96365; 96367; 96375; 97162; 97530; 99285; C1758; J0696; J2543; J3370

== ENCOUNTER → 2020-08-12 09:47 | Outpatient (BNVA) | payer MEDICARE, MEDICAID, SELFPAY | PROVIDERS: PCP Internal Medicine; Referring Provider Internal Medicine; Visit Provider Internal Medicine Gastroenterology | DX: D64.9 Anemia, unspecified (principal); K59.01 Slow transit constipation | CPT/HCPCS: 99212 ==

== ENCOUNTER → 2020-12-13 09:18 | Outpatient (BNVA) | payer MEDICARE, MEDICAID, SELFPAY | PROVIDERS: PCP Internal Medicine; Visit Provider Internal Medicine Gastroenterology | CPT/HCPCS: Q3014 ==

== ENCOUNTER 2022-06-18 09:21 | Emergency (ER) | payer MEDICARE, MEDICAID, SELFPAY ==
--- NOTE | ~2022-06-18 | XR_ITS ---
EXAMINATION: XR ANKLE, LEFT CLINICAL INFORMATION: Left ankle injury COMPARISON: None TECHNIQUE: AP, lateral, and mortise views of the left ankle. FINDINGS: There is bony demineralization. Soft tissue swelling seen. There is a double density appreciated at the medial malleolus which could be related to an ossicle although an underlying fracture is not completely excluded. Dome of the talus unremarkable. The distal left fibula appears to be intact. Posterior distal tibia unremarkable. There is a plantar calcaneal spur. XR/XR ankle LT min 3V IMPRESSION: 1. Double density at the medial malleolus could be related to an ossicle although an underlying fracture is not completely excluded. 2. Soft tissue swelling. 3. Other incidental findings as noted above.
--- NOTE | ~2022-06-18 | XR_ITS ---
EXAMINATION: XR FOOT, LEFT CLINICAL INFORMATION: Fall, trauma, pain COMPARISON: None TECHNIQUE: AP, lateral, and oblique views of the left foot. FINDINGS: There is no visible acute or healing fracture, dislocation, destructive process. No visible ankle capsular effusion. The visualized subtalar joint is unremarkable. The right shoulder calcaneal recess is preserved. There is moderate plantar calcaneal spur. Mild degenerative changes are present first MTP along with a hallux valgus and small subchondral cyst medial first metatarsal head. There are hammertoe changes second through fifth toes. Mild interphalangeal joints narrowing without visible erosive change. There are calcifications of the vasculature which may be seen in diabetes and other atherosclerotic changes. XR/XR foot LT 2V IMPRESSION: 1. No visible acute or healing fracture or dislocation. 2. Hallux valgus with mild degenerative changes first MTP. 3. Hammertoe changes second through fifth toes. 4. Moderate plantar calcaneal spur.
[2022-06-18 09:30] VITALS: BP 142/68; BP 144/88; PULSE 55; PULSE 88; RESP 18; TEMP 36.4; O2SAT 96; O2SAT 98; BMI 50.6
--- NOTE | 2022-06-18 09:39 | PC.NURSE ---
patient a&ox3, c/o lle pain, vss, ordered lle xray. it is noted pt has 3+ edema to lower extremities which patient states is not his norm.
--- NOTE | 2022-06-18 10:28 | ED_ITS ---
HPI - Extremity Injury (Lower) General Chief Complaint: Extremity Injury, Lower Stated Complaint: SLIP/FALL SATURDAY, L ANKLE PAIN PER EMS Time Seen by Provider: 06/18/22 10:05 Source: patient and EMS Mode of arrival: EMS Limitations: no limitations History of Present Illness HPI Narrative: 69 y/o male with history of RA with chronic knee pain on chronic opiates, HTN, psoriasis, MICHAEL, HLD, hx fall, CKD?who presents to the ER with complaints of left ankle pain. Per patient he had a fall with a twisting inversion injury of the left ankle on Saturday requiring him to call EMS to assist with the transfer back into his bed. Patient is wheelchair-bound at baseline. He does have nursing assistance which comes in twice a day to help him with his daily needs. He feels like this is sufficient for him. He reports continued left ankle pain. No weakness, numbness or tingling of the extremity. He denies any head strike or loss of consciousness. No AC therapy use. Patient also reports chronic psoriasis over his a buttocks, extremities. Patient is concerned because 1 of the lesions is quite painful on his right buttocks. Also concerned because he has a rash underneath his abdominal fold which is itchy and painful. Related Data Home Medications Medication Instructions Recorded Confirmed omeprazole 20 mg capsule,delayed 20 mg PO DAILY 05/04/20 05/21/22 release etanercept 50 mg/mL (1 mL) 50 mg subcut QWEEK 05/29/21 05/21/22 subcutaneous syringe (Enbrel) Previous Rx's Medication Instructions Recorded furosemide 20 mg tablet 20 mg PO BID #90 tabs 03/31/20 ferrous sulfate 324 mg (65 mg 324 mg PO BIDWM #60 tabs 05/11/20 iron) tablet,delayed release trolamine salicylate 10 % topical 1 appl topical BID #1 g 05/11/20 cream fluticasone propionate 50 2 spray intranasal DAILY #15.8 mL 05/29/21 mcg/actuation nasal spray,suspension miscellaneous medical supply 20 ea miscellaneous QIDACHS #500 ea 06/16/21 folic acid 1 mg tablet 1 mg PO DAILY #90 tabs 07/04/21 levothyroxine 75 mcg tablet 37.5 mcg PO DAILY #90 tabs 07/12/21 naloxegol 12.5 mg tablet (Movantik) 12.5 mg PO QAM #90 tabs 07/12/21 promethazine 25 mg tablet 12.5 mg PO BID PRN itch #180 tabs 07/12/21 tamsulosin 0.4 mg capsule (Flomax) 0.4 mg PO DAILY #90 caps 07/12/21 miscellaneous medical supply 5 ea miscellaneous QIDACHS #500 ea 07/18/21 polyethylene glycol 3350 17 gram 17 g PO DAILY #30 ea 09/15/21 oral powder packet diaper,brief,adult,disposable #60 ea 09/27/21 (Briefs, Adult-Extra Large) lactulose 10 gram/15 mL (15 mL) 10 g (15 mL) PO DAILY PRN 09/27/21 oral solution constipation #1,440 mL docusate sodium 100 mg capsule 100 mg PO BID PRN constipation 30 11/15/21 days #60 caps pads for bedsores 7 7/8 X 11 3/4 #50 ea 03/14/22 oxycodone 5 mg tablet 10 mg PO Q6H PRN pain #240 tabs 05/21/22 chux disposable bed liner #100 ea 06/07/22 flushable wipes #300 ea 06/07/22 nystatin 100,000 unit/gram topical 1 appl topical BID #60 grams 06/18/22 powder Allergies Allergy/AdvReac Type Severity Reaction Status Date / Time simvastatin [SIMVASTATIN] Allergy Unknown TOLD NEVER Verified 06/18/22 09:30 TO TAKE, Cramps in legs Gold shot AdvReac Unknown Itching Uncoded 02/15/22 14:18 Review of Systems Review of Systems: Yes all other systems are reviewed and are negative Constitutional: Constitutional: Reports no additional constitutional complaints, Denies body ache(s), Denies chills, Denies fever(s), Denies headache(s) and Denies weakness Eyes: Eyes: Reports no additional eye complaints and Denies change in vision ENT: Reports system reviewed and no additional complaints, except as docum ented, Denies dizziness, Denies headache(s), Denies nasal congestion, Denies nasal discharge and Denies neck pain Cardiovascular: Cardiovascular: Reports no additional cardiovascular complaints, Denies chest pain, Denies leg edema and Denies dyspnea Respiratory: Respiratory: Reports no additional respiratory complaints, Denies cough and Denies dyspnea Gastrointestinal: Gastrointestinal: Reports no additional gastrointestinal complaints, Denies abdominal pain, Denies diarrhea, Denies nausea and Denies vomiting Genitourinary: Genitourinary: Denies urinary incontinence Musculoskeletal: Musculoskeletal: Reports no additional musculoskeletal complaints, Denies back pain, Reports arthralgias, Reports joint swelling, Reports limited range of motion, Denies neck pain, Denies numbness and Denies tingling Integumentary/Breasts: Skin/Breast: Reports system reviewed and no additional complaints, except as docu and Reports rash Neurologic: Reports system reviewed and no additional complaints, except as documented, Denies Abnormal speech present, Denies dizziness, Denies headache(s), Denies numbness, Denies tingling and Denies weakness PMFSH Past Medical History Attestation statement: The following information was validated with the patient. Source: old records reviewed and nursing notes reviewed Medical History Acute embolism and thrombosis of right femoral vein Acute thromboembolism of deep veins of lower extremity Arthritis of both knees Bacteremia Chronic arthritis Chronic kidney disease, stage 3 unspecified Chronic pain syndrome Constipation Esophageal reflux H/O gastric ulcer Morbid obesity Obstructive sleep apnea (adult) (pediatric) Other chronic pain Pain management Peripheral vascular disease Primary osteoarthritis, right shoulder Retention of urine Rheumatoid arthritis Rheumatoid arthritis Streptococcus, group b, as the cause of diseases classified elsewhere Unsteadiness on feet Weakness Surgical History H/O colonoscopy H/O esophagogastroduodenoscopy H/O rectal polypectomy History of bilateral cataract extraction Family History Family History Father CAD (coronary artery disease) Diabetes Mother Diabetes Brother Diabetes Social History Social History Household Members: None Housing: Apartment Do you presently have visiting nurse or other home services: Yes ([employer] 3hr/week & meals on wheels) Alcohol intake: never Patient Tobacco Use Status: Never used Tobacco Smoked in Last 30 Days: No e-Cigarette/Vaping Use: Never Used Second Hand Smoke Exposure: No Use of substances other than those prescribed or required for medical reasons: No Advance Directives: No Advance Directives Information Provided: No service: No Current occupational status: unemployed Cognitive needs: No Hearing needs: No Vision needs: No Physical Exam Vital Signs: Vital Signs: Last Vital Signs Temp 97.9 F 06/18/22 14:00 Pulse 57 06/18/22 14:00 Resp 18 06/18/22 14:00 BP 130/73 06/18/22 14:00 Pulse Ox 96 06/18/22 14:00 O2 Del Method 06/18/22 14:00 BMI result Body Mass Index 50.6 Const: General: cooperative, healthy appearing, comfortable and no acute distress Orientation/consciousness: patient oriented x3 Limitations: no limitations HEENT: Head: Yes normal to inspection Ears: hearing grossly normal bilaterally and TM's normal bilaterally General nose exam: Normal external nose present Face and sinus: Yes normal facial exam Mouth: Normal oral and palatal mucosa present Throat: Yes posterior oropharynx normal, Yes tonsils normal and Yes uvula midline Eyes: General: appearance normal, both eyes and all related structures Pupils: Equal, round and reactive pupils present Neck: Neck: Yes normal visual inspection, Yes full ROM, Yes no lymphadenopathy and Yes no meningeal signs Chest: Chest palpation & inspection: normal inspection of the chest Resp: Effort & Inspection: normal respiratory effort Auscultation: clear to auscultation bilaterally Cardio: Rate: regular rate Rhythm: regular rhythm Peripheral pulses: Peripheral pulses 2+ throughout GI: Inspection: Yes normal to inspection Palpation (GI): Soft to palpation and nontender Auscultation: normal bowel sounds Back/Spine/Pelvis: Thoracic/Lumbar Spine: thoracic and lumbar spine normal to inspection Skin: Other: There are multiple plaque-like lesions over the extremities and buttocks. Over the right buttocks there is an abraded area with slight bleeding noted. There is no surrounding erythema or swelling or foul odor. Underneath both abdominal folds there is excoriation and erythema General skin exam: no rashes or lesions noted Neuro: General: patient oriented x3, no meningeal signs, no focal motor deficits and normal sensation to monofilament Cranial nerves: Yes Equal, round and reactive pupils present Cognition (Neuro): normal cognition Speech: No Abnormal speech present Gait exam (Neuro): Normal gait present Motor exam (neuro): 5/5 motor strength present throughout Extrem: Other: There is tenderness over the left lateral and medial ankle with ecchymosis and mild swelling. There is also some tenderness over the dorsal foot with swelling noted. Full range of motion of the ankle. No ligamental laxity. Palpable DP PT feel pulses. Patient with chronic lower extremity swelling which he tells me is at his baseline General: Yes normal to inspection Course Course Course Narrative: X-ray show no fracture. Likely sprain. Patient is wheelchair-bound at baseline. The extremity will be wrapped with an Enrique wrap. Patient will also be treated with nystatin powder for his Judi skin infection. Plan for discharge back to his place of living Medical Decision Making Medical Decision Making [facility] Narrative: 71 yo male with mechanical injury to the left lower extremity here with continued pain and swelling. Patient with tenderness, ecchymosis and swelling over the left lateral ankle and over the dorsum of the foot. Will obtain x-rays to rule out fracture Patient also concern with his psoriatic lesions noted over his buttock with a painful lesion over the right buttocks but appears to have been abraded. No signs or symptoms of superimposed infection. Patient also with Judi like rash underneath his abdominal fold. Will need nystatin powder for home Differential Diagnosis Differential Diagnoses: The differential diagnosis associated with the presentation includes Fracture, sprain, strain Independent Interpretation I performed an independent interpretation of an: Plain X-Ray Interpretation: I indepedentely reviewed the x-ray and agree with radiologist's report but doubt fracture Radiology Impression Discussion of test interpretation with radiology: I have reviewed the radiologist's reading. Radiologist Impression: FINDINGS: There is bony demineralization. Soft tissue swelling seen. There is a double density appreciated at the medial malleolus which could be related to an ossicle although an underlying fracture is not completely excluded. Dome of the talus unremarkable. The distal left fibula appears to be intact. Posterior distal tibia unremarkable. There is a plantar calcaneal spur. XR/XR ankle LT min 3V IMPRESSION: 1.? Double density at the medial malleolus could be related to an ossicle although an underlying fracture is not completely excluded. 2.? Soft tissue swelling. 3.? Other incidental findings as noted above. Launch?Image [address] [address] XRay Report Signed Patient: Rich Nance MR#: [id number] : 1950 Acct:[id number] Age/Sex: 71 / M ADM Date: 06/18/22 Loc: HO.ED Attending Dr: Ordering Physician: Latosha Ruby NP Date of Service: 06/18/22 Procedure(s): XR foot LT 2V Accession Number(s): [id number] cc: Latosha Ruby NP~ EXAMINATION: XR FOOT, LEFT CLINICAL INFORMATION: Fall, trauma, pain? COMPARISON: None? TECHNIQUE: AP, lateral, and oblique views of the left foot. FINDINGS: There is no visible acute or healing fracture, dislocation, destructive process. No visible ankle capsular effusion. The visualized subtalar joint is unremarkable. The right shoulder calcaneal recess is preserved. There is moderate plantar calcaneal spur. Mild degenerative changes are present first MTP along with a hallux valgus and small subchondral cyst medial first metatarsal head. There are hammertoe changes second through fifth toes. Mild interphalangeal joints narrowing without visible erosive change. There are calcifications of the vasculature which may be seen in diabetes and other atherosclerotic changes.? XR/XR foot LT 2V IMPRESSION: 1.? No visible acute or healing fracture or dislocation. 2.? Hallux valgus with mild degenerative changes first MTP. 3.? Hammertoe changes second through fifth toes. 4.? Moderate plantar calcaneal spur. ? ? Independent Historian Clinical information obtained from an independent historian. History obtained from or confirmed by: EMS Discharge Plan Discharge Clinical Impression: Ankle sprain and strain, Abrasion of skin, Judi infection Patient Disposition: Home, Self-Care Instructions: Ankle Sprain (ED), Abrasion (ED), Skin Yeast Infection (ED) Additional Instructions: Your x-rays of your ankle and foot show no signs of fracture Prescriptions: New nystatin 100,000 unit/gram powder 1 appl topical BID Qty: 60 0RF No Action furosemide 20 mg tablet 20 mg PO BID Qty: 90 8RF Hold Instructions: Resume on 05/13/20. miscellaneous medical supply Misc 20 ea miscellaneous QIDACHS Qty: 500 0RF folic acid 1 mg tablet 1 mg PO DAILY Qty: 90 8RF levothyroxine 75 mcg tablet 37.5 mcg PO DAILY Qty: 90 8RF Movantik 12.5 mg tablet 12.5 mg PO QAM Qty: 90 8RF Rx Instructions: must be taken on empty stomach; no food 1 hr after or 2-3 hrs before dose promethazine 25 mg tablet 12.5 mg PO BID PRN (Reason: itch) Qty: 180 8RF tamsulosin [Flomax] 0.4 mg capsule 0.4 mg PO DAILY Qty: 90 8RF miscellaneous medical supply Misc 5 ea miscellaneous QIDACHS Qty: 500 0RF Rx Instructions: Facial body wipes polyethylene glycol 3350 17 gram powder in packet 17 g PO DAILY Qty: 30 7RF lactulose 10 gram/15 mL (15 mL) solution 10 g PO DAILY PRN (Reason: constipation) Qty: 1440 0RF docusate sodium 100 mg capsule 100 mg PO BID PRN (Reason: constipation) 30 Days Qty: 60 7RF (DME) pads for bedsores 7 7/8 X 11 3/4 pad See Rx Instructions .Route Qty: 50 0RF Rx Instructions: As directed (DME) chux disposable bed liner large See Rx Instructions .Route .MEDSUPPLY Qty: 100 0RF Rx Instructions: As directed (DME) flushable wipes See Rx Instructions .Route .MEDSUPPLY Qty: 300 0RF Rx Instructions: As directed trolamine salicylate 10 % Cream 1 appl topical BID Qty: 1 0RF Protocol: Apply to: Apply to: Right shoulder ferrous sulfate 324 mg (65 mg iron) Tablet,Delayed Release (Dr/Ec) 324 mg PO BIDWM Qty: 60 0RF omeprazole 20 mg capsule,delayed release(DR/EC) 20 mg PO DAILY Enbrel 50 mg/mL (1 mL) syringe 50 mg subcut QWEEK fluticasone propionate 50 mcg/actuation spray,suspension 2 spray intranasal DAILY Qty: 15.8 8RF Rx Instructions: administer into each nostril (DME) Briefs, Adult-Extra Large Misc See Rx Instructions .Route Qty: 60 3RF Rx Instructions: Size 2x - 2 briefs daily oxycodone 5 mg tablet 10 mg PO Q6H PRN (Reason: pain) Qty: 240 0RF Referrals: Meng Nunez MD [Primary Care Provider] - 1 week Interventions: ED Discharge Assessment Last Done: 06/18/22 14:35 Discharge Date/Time: 06/18/22 14:36
--- NOTE | 2022-06-18 10:30 | PC.NURSE ---
pt noted by provider to have shearing area to buttock area, dressing applied per request of provider
[2022-06-18 11:36] VITALS: BP 106/84; PULSE 59; RESP 18; TEMP 36.7; O2SAT 95
--- NOTE | 2022-06-18 11:37 | PC.NURSE ---
patient a&ox3, vss, pt states if he is not moving his left foot he has no pain, pt also states the shearing of his buttocks pain is now gone since the dressing was applied, pt awaiting results of xrays, call skinner within reach, pt resting comfortably, will continue to monitor.
--- NOTE | 2022-06-18 12:15 | PC.NURSE ---
notified pocket secretary assembler pt is wheelchair at baseline and needs ambulance to return to home, pts family called and stated he needs ambulance [facility] as well
--- NOTE | 2022-06-18 13:25 | PC.NURSE ---
michael wrap applied by tech
--- NOTE | 2022-06-18 13:49 | PC.NURSE ---
patient moved to pillai bed awaiting for ambulance to discharge
[2022-06-18 14:00] VITALS: BP 130/73; PULSE 57; RESP 18; TEMP 36.6; O2SAT 96
== END 2022-06-18 14:36 | disposition home or self-care (01) ==
PROVIDERS: Emergency Provider Emergency Medicine; PCP Internal Medicine
DX: S93.402A Sprain of unspecified ligament of left ankle, initial encounter (principal); S96.912A Strain of unspecified muscle and tendon at ankle and foot level, left foot, initial encounter; S30.810A Abrasion of lower back and pelvis, initial encounter; X50.1XXA Overexertion from prolonged static or awkward postures, initial encounter; B37.2 Candidiasis of skin and nail; R60.0 Localized edema; E66.9 Obesity, unspecified; Z68.43 Body mass index [BMI] 50.0-59.9, adult; Y93.9 Activity, unspecified; Y92.019 Unspecified place in single-family (private) house as the place of occurrence of the external cause; Y99.9 Unspecified external cause status
CPT/HCPCS: 73610; 73620; 99283; 99284

== ENCOUNTER 2022-06-27 08:40 | Emergency (ER) | payer MEDICARE, MEDICAID, SELFPAY ==
[2022-06-27 08:47] VITALS: BP 126/56; PULSE 69; RESP 18; TEMP 36.6; O2SAT 97
[2022-06-27 08:59] VITALS: BP 118/63; BP 143/84; PULSE 79; PULSE 81; RESP 20; TEMP 36.5; O2SAT 94; O2SAT 97; BMI 50.4
--- NOTE | 2022-06-27 09:13 | PC.NURSE ---
pt AOx3, VSS. pt presents to ED with bruising to foot, and left flank. pt reports bruising has been present for a couple weeks. Pressure injury to buttocks and additional rash on back. Tach drawing labs
[2022-06-27] MEDS: Acetaminophen 325 MG TABLET 975 MG PO (09:20)
--- NOTE | 2022-06-27 09:35 | ED.FALL ---
HPI - Fall General Chief Complaint: Fall Stated Complaint: Fall, from home per EMS Time Seen by Provider: 06/27/22 08:57 Source: patient, EMS and old records reviewed Mode of arrival: EMS Limitations: no limitations History of Present Illness HPI Narrative: 71 yo morbidly obese, wheelchair/bedbound male with history of rheumatoid arthritis, chronic pain on chronic opiates, psoriasis, CKD III, DVT, hx LE cellulitis, chronic anemia who presents to the ER from home via EMS for evaluation of painful blisters on his bottom, worsening over the last couple of weeks. 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 This worsened the pain on his blisters and wounds. He denies hitting his head or sustaining any injuries. He feels at his baseline, not weak. He is not on anticoagulation. MD complaint: fall and other (wound pain) Onset (ago): hour(s) Fall from: out of bed Fall witnessed: yes, by bystander Place fall occurred: home Loss of consciousness: none Symptoms prior to fall: none Context: tripped/slipped Location of injury: buttocks Severity: moderate Severity scale (1-10): 5 Quality: aching Associated symptoms (after fall): denies Related Data Home Medications Medication Instructions Recorded Confirmed omeprazole 20 mg capsule,delayed 20 mg PO DAILY 05/04/20 05/21/22 release etanercept 50 mg/mL (1 mL) 50 mg subcut QWEEK 05/29/21 05/21/22 subcutaneous syringe (Enbrel) Previous Rx's Medication Instructions Recorded furosemide 20 mg tablet 20 mg PO BID #90 tabs 03/31/20 ferrous sulfate 324 mg (65 mg 324 mg PO BIDWM #60 tabs 05/11/20 iron) tablet,delayed release trolamine salicylate 10 % topical 1 appl topical BID #1 g 05/11/20 cream fluticasone propionate 50 2 spray intranasal DAILY #15.8 mL 05/29/21 mcg/actuation nasal spray,suspension miscellaneous medical supply 20 ea miscellaneous QIDACHS #500 ea 06/16/21 folic acid 1 mg tablet 1 mg PO DAILY #90 tabs 07/04/21 levothyroxine 75 mcg tablet 37.5 mcg PO DAILY #90 tabs 07/12/21 naloxegol 12.5 mg tablet (Movantik) 12.5 mg PO QAM #90 tabs 07/12/21 promethazine 25 mg tablet 12.5 mg PO BID PRN itch #180 tabs 07/12/21 tamsulosin 0.4 mg capsule (Flomax) 0.4 mg PO DAILY #90 caps 07/12/21 miscellaneous medical supply 5 ea miscellaneous QIDACHS #500 ea 07/18/21 polyethylene glycol 3350 17 gram 17 g PO DAILY #30 ea 09/15/21 oral powder packet diaper,brief,adult,disposable #60 ea 09/27/21 (Briefs, Adult-Extra Large) lactulose 10 gram/15 mL (15 mL) 10 g (15 mL) PO DAILY PRN 09/27/21 oral solution constipation #1,440 mL docusate sodium 100 mg capsule 100 mg PO BID PRN constipation 30 11/15/21 days #60 caps pads for bedsores 7 7/8 X 11 3/4 #50 ea 03/14/22 chux disposable bed liner #100 ea 06/07/22 flushable wipes #300 ea 06/07/22 nystatin 100,000 unit/gram topical 1 appl topical BID #60 grams 06/18/22 powder oxycodone 5 mg tablet 10 mg PO Q6H PRN pain #240 tabs 06/21/22 betamethasone dipropionate 0.05 % 1 appl topical DAILY #45 grams 06/27/22 topical ointment Allergies Allergy/AdvReac Type Severity Reaction Status Date / Time simvastatin [SIMVASTATIN] Allergy Unknown TOLD NEVER Verified 06/18/22 09:30 TO TAKE, Cramps in legs Gold shot AdvReac Unknown Itching Uncoded 02/15/22 14:18 Review of Systems Review of Systems: Yes all other systems are reviewed and are negative PMFSH Past Medical History Medical History Acute embolism and thrombosis of right femoral vein Acute thromboembolism of deep veins of lower extremity Arthritis of both knees Bacteremia Chronic arthritis Chronic kidney disease, stage 3 unspecified Chronic pain syndrome Constipation Esophageal reflux H/O gastric ulcer Morbid obesity Obstructive sleep apnea (adult) (pediatric) Other chronic pain Pain management Peripheral vascular disease Primary osteoarthritis, right shoulder Retention of urine Rheumatoid arthritis Rheumatoid arthritis Streptococcus, group b, as the cause of diseases classified elsewhere Unsteadiness on feet Weakness Surgical History H/O colonoscopy H/O esophagogastroduodenoscopy H/O rectal polypectomy History of bilateral cataract extraction Family History Family History Father CAD (coronary artery disease) Diabetes Mother Diabetes Brother Diabetes Social History Social History Household Members: None Housing: Apartment Do you presently have visiting nurse or other home services: Yes (T[employer] M[employer] 3hr/week & meals on wheels) Alcohol intake: never Patient Tobacco Use Status: Never used Tobacco Smoked in Last 30 Days: No e-Cigarette/Vaping Use: Never Used Second Hand Smoke Exposure: No Use of substances other than those prescribed or required for medical reasons: No Advance Directives: No Advance Directives Information Provided: Yes service: No Current occupational status: unemployed Cognitive needs: No Hearing needs: No Vision needs: No Physical Exam Vital Signs: Vital Signs: Last Vital Signs Temp 97.7 F 06/27/22 08:59 Pulse 60 06/27/22 10:06 Resp 16 06/27/22 10:06 BP 111/63 06/27/22 10:06 Pulse Ox 95 06/27/22 10:06 O2 Del Method 06/27/22 10:06 BMI result Body Mass Index 50.4 Appearance: Alert. Oriented X3. No acute distress. Eyes: Pupils equal, round and reactive to light. ENT: Pharynx normal. Neck: Normal inspection. Neck supple. CVS: Normal heart rate and rhythm. Pulses normal. Respiratory: No respiratory distress. Breath sounds normal. Abdomen: Obese Soft and nontender. +BS x4. left flank with purple ecchymotic area, about 8 cm around Skin: Skin warm and dry. well demarcated, erythematous and dry, flakey rash on the bottom and trunk c/w history of psoriasis/dermatitis. Extremities: 3+ lower extremity edema with chronic venous stasis changes, purple ecchymosis to the bottom of the left foot, behind the left knee Neuro: Oriented X 3. Medications Administered Discontinued Medications Generic Name Dose Route Start Last Admin Trade Name Freq PRN Reason Stop Dose Admin Acetaminophen 975 mg 06/27/22 09:04 06/27/22 09:20 Acetaminophen 325 Mg Tablet PO 06/27/22 09:05 975 mg ONCE ONE Administration Medical Decision Making Medical Decision Making [facility] Narrative: 71 yo morbidly obese, wheelchair/bedbound male with history of rheumatoid arthritis, chronic pain on chronic opiates, psoriasis, CKD III, DVT, hx LE cellulitis, chronic anemia presenting for evaluation of worsening wound pain s/p slide out of bed today during a transfer. No headstrike or other injuries. Wound does not appear to be infected. He has chronic dermatits as well as a pressure wound to his left buttocks. He has seen Wound Clinic and Derm in the past. His dermatitis has responded well to topical steroids. Labs are unremarkable. K+ 5.3 with mild hemolysis, will not treat. No leukocytosis. Results d/w patient. He would like to go home. Encouraged to follow up with Dermatology and Wound clinic. Will planned to do dressing over the few blisters in his coccyx area and start betamethasone for his other rash. This is what Dermatology had him on before that cleared his rash. At this time patient stable for discharge home Differential Diagnosis Differential Diagnoses: The differential diagnosis associated with the presentation includes Decubitus ulcer, cellulitis, infected wound, dermatitis, psoriasis, traumatic injury Lab Data [facility] Lab Attestation statement: I reviewed the patient's lab results. Mild hyperkalemia, hemolysis noted, no leukocytosis. No major metabolic derangement. 06/27/22 09:40 06/27/22 09:40 Labs: Lab Results 06/27/22 06/27/22 06/27/22 Range/Units 09:40 09:40 09:40 WBC 8.5 (4.8-10.8) X10*3/uL RBC 4.19 L (4.60-5.80) X10*6/uL Hgb 13.0 L (14.0-18.0) g/dl Hct 42.1 (42.0-52.0) % MCV 100.5 H (80.0-98.0) fL MCH 31.0 (27.0-33.0) pg MCHC 30.9 L (31.0-36.0) g/dl RDW 14.5 (11.0-16.0) % Plt Count 198 (160-400) X10*3/uL MPV 10.0 (9.4-12.4) fL Immature Gran % (Auto) 0.8 H (0.0-0.4) % Neut % (Auto) 68.1 (45-73) % Lymph % (Auto) 17.4 L (20-40) % [place] % (Auto) 7.1 (2-11) % Eos % (Auto) 6.1 H (0-4) % Baso % (Auto) 0.5 (0-2) % Lymph # (Auto) 1.5 (1.2-4.9) X10*3/uL [place] # (Auto) 0.6 (0.1-1.2) X10*3/uL Eos # (Auto) 0.5 H (0.0-0.4) X10*3/uL Baso # (Auto) 0.0 (0.0-0.2) X10*3/uL Abs Immat Gran (auto) 0.07 H (0.00-0.03) X10*3/uL Absolute Neuts (auto) 5.8 (2.0-8.3) x10*3/uL Absolute Nucleated RBC 0.000 (0.0-0.012) X10*3/uL Nucleated RBC % (auto) 0.0 (0.0-0.2) /100WBC PT 10.4 (10.0-13.1) SEC INR 0.9 (0.9-1.1) APTT 23.3 L (26.0-36.4) SEC Sodium 143 (135-145) mmol/L Potassium 5.3 H (3.3-5.1) mmol/L Chloride 110 H (96-108) mmol/L Carbon Dioxide 22 (22-29) mmol/L Anion Gap 16 (12-20) BUN 25 H (9-16) mg/dL Creatinine 1.26 (0.5-1.4) mg/dL Estim Creat Clear Calc 72.4 Estimated GFR 56 Random Glucose 97 (60-115) mg/dL Calcium 8.6 D (8.4-10.2) mg/dL Magnesium 1.9 (1.6-2.6) mg/dL Total Bilirubin 0.5 (0.0-1.0) mg/dL Direct Bilirubin < 0.2 (0.0-0.5) mg/dL AST 27 (5-37) U/L ALT 17 (0-40) U/L Alkaline Phosphatase 98 (39-117) U/L B-Natriuretic Peptide (<100) pg/mL Total Protein 6.0 L (6.5-8.0) g/dL Albumin 3.3 L (3.5-5.0) g/dL COVID-19 (NELLIE) (Negative) COVID-19 Clin Com 06/27/22 06/27/22 Range/Units 09:40 09:40 WBC (4.8-10.8) X10*3/uL RBC (4.60-5.80) X10*6/uL Hgb (14.0-18.0) g/dl Hct (42.0-52.0) % MCV (80.0-98.0) fL MCH (27.0-33.0) pg MCHC (31.0-36.0) g/dl RDW (11.0-16.0) % Plt Count (160-400) X10*3/uL MPV (9.4-12.4) fL Immature Gran % (Auto) (0.0-0.4) % Neut % (Auto) (45-73) % Lymph % (Auto) (20-40) % [place] % (Auto) (2-11) % Eos % (Auto) (0-4) % Baso % (Auto) (0-2) % Lymph # (Auto) (1.2-4.9) X10*3/uL [place] # (Auto) (0.1-1.2) X10*3/uL Eos # (Auto) (0.0-0.4) X10*3/uL Baso # (Auto) (0.0-0.2) X10*3/uL Abs Immat Gran (auto) (0.00-0.03) X10*3/uL Absolute Neuts (auto) (2.0-8.3) x10*3/uL Absolute Nucleated RBC (0.0-0.012) X10*3/uL Nucleated RBC % (auto) (0.0-0.2) /100WBC PT (10.0-13.1) SEC INR (0.9-1.1) APTT (26.0-36.4) SEC Sodium (135-145) mmol/L Potassium (3.3-5.1) mmol/L Chloride (96-108) mmol/L Carbon Dioxide (22-29) mmol/L Anion Gap (12-20) BUN (9-16) mg/dL Creatinine (0.5-1.4) mg/dL Estim Creat Clear Calc Estimated GFR Random Glucose (60-115) mg/dL Calcium (8.4-10.2) mg/dL Magnesium (1.6-2.6) mg/dL Total Bilirubin (0.0-1.0) mg/dL Direct Bilirubin (0.0-0.5) mg/dL AST (5-37) U/L ALT (0-40) U/L Alkaline Phosphatase (39-117) U/L B-Natriuretic Peptide 35 (<100) pg/mL Total Protein (6.5-8.0) g/dL Albumin (3.5-5.0) g/dL COVID-19 (NELLIE) Negative (Negative) COVID-19 Clin Com See Note Independent Historian Clinical information obtained from an independent historian. History obtained from or confirmed by: EMS External Record Review External record reviewed: Office record, Outpatient record and Prior outpatient labs Prescription Management I considered prescription management with: Other (Topical steroid) Chronic Conditions Patient?s care impacted by: Other (Morbid obesity and bed-bound status) Critical Care Time Critical Care Time Critical Care Time: No Discharge Plan Discharge Clinical Impression: Dermatitis, Buttock wound Patient Disposition: Home, Self-Care Instructions: Wound Healing and Your Diet (ED), Dermatitis (ED) Additional Instructions: Use the prescribed steroid ointment to the areas of dermatitis, the red, dry, itchy areas of your skin. Recommend following up with the Wound Clinic for further evaluation and treatment of the darkened blisters on your left buttock. Follow-up with your primary care doctor as well. If you develop new or worsening symptoms call 911 or come back to the ER for further evaluation. Prescriptions: New betamethasone dipropionate 0.05 % ointment 1 appl topical DAILY Qty: 45 0RF No Action furosemide 20 mg tablet 20 mg PO BID Qty: 90 8RF Hold Instructions: Resume on 05/13/20. miscellaneous medical supply [facility] [place] 20 ea miscellaneous QIDACHS Qty: 500 0RF folic acid 1 mg tablet 1 mg PO DAILY Qty: 90 8RF levothyroxine 75 mcg tablet 37.5 mcg PO DAILY Qty: 90 8RF Movantik 12.5 mg tablet 12.5 mg PO QAM Qty: 90 8RF Rx Instructions: must be taken on empty stomach; no food 1 hr after or 2-3 hrs before dose promethazine 25 mg tablet 12.5 mg PO BID PRN (Reason: itch) Qty: 180 8RF tamsulosin [Flomax] 0.4 mg capsule 0.4 mg PO DAILY Qty: 90 8RF miscellaneous medical supply [facility] [place] [facility] 5 ea miscellaneous QIDACHS Qty: 500 0RF Rx Instructions: Facial body wipes polyethylene glycol 3350 17 gram powder in packet 17 g PO DAILY Qty: 30 7RF lactulose 10 gram/15 mL (15 mL) solution 10 g PO DAILY PRN (Reason: constipation) Qty: 1440 0RF docusate sodium 100 mg capsule 100 mg PO BID PRN (Reason: constipation) 30 Days Qty: 60 7RF (DME) pads for bedsores 7 7/8 X 11 3/4 pad See Rx Instructions .Route Qty: 50 0RF Rx Instructions: As directed (DME) chux disposable bed liner large See Rx Instructions .Route .MEDSUPPLY Qty: 100 0RF Rx Instructions: As directed (DME) flushable wipes See Rx Instructions .Route .MEDSUPPLY Qty: 300 0RF Rx Instructions: As directed oxycodone 5 mg tablet 10 mg PO Q6H PRN (Reason: pain) Qty: 240 0RF trolamine salicylate 10 % Cream 1 appl topical BID Qty: 1 0RF Protocol: Apply to: Apply to: Right shoulder ferrous sulfate 324 mg (65 mg iron) Tablet,Delayed Release (Dr/Ec) 324 mg PO BIDWM Qty: 60 0RF nystatin 100,000 unit/gram powder 1 appl topical BID Qty: 60 0RF omeprazole 20 mg capsule,delayed release(DR/EC) 20 mg PO DAILY Enbrel 50 mg/mL (1 mL) syringe 50 mg subcut QWEEK fluticasone propionate 50 mcg/actuation spray,suspension 2 spray intranasal DAILY Qty: 15.8 8RF Rx Instructions: administer into each nostril (DME) Briefs, Adult-Extra Large Misc See Rx Instructions .Route Qty: 60 3RF Rx Instructions: Size 2x - 2 briefs daily Referrals: [facility] [place] Wound Care Management [Provider Group] Meng Nunez MD [Primary Care Provider] -
[2022-06-27 09:43] LABS: MANUAL DIFF FLAG NO
[2022-06-27 09:48] LABS: Basophils Percent Auto 0.5 % (0-2); Eosinophils Absolute Auto 0.5 X10*3/uL (0.0-0.4); Eosinophils Percent Auto 6.1 % (0-4); Hematocrit 42.1 % (42.0-52.0); Imm Gran Abs Auto 0.07 X10*3/uL (0.00-0.03); Imm Gran Pct Auto 0.8 % (0.0-0.4); Lymphocytes Absolute Auto 1.5 X10*3/uL (1.2-4.9); Lymphocytes Percent Auto 17.4 % (20-40); Mean Corpuscular HGB Conc 30.9 g/dl (31.0-36.0); Mean Corpuscular Volume 100.5 fL (80.0-98.0); Monocytes Absolute Auto 0.6 X10*3/uL (0.1-1.2); Monocytes Percent Auto 7.1 % (2-11); Neutrophils Absolute Auto 5.8 x10*3/uL (2.0-8.3); Neutrophils Percent Auto 68.1 % (45-73); Platelet Count 198 X10*3/uL (160-400); Red Blood Count 4.19 X10*6/uL (4.60-5.80); Red Cell Distribution Width 14.5 % (11.0-16.0); White Blood Count 8.5 X10*3/uL (4.8-10.8)
[2022-06-27 10:00] LABS: COVID-19 Test Negative (Negative); IDNOW Serial# 08D9AD1C
[2022-06-27 10:06] VITALS: BP 111/63; PULSE 60; RESP 16; O2SAT 95
[2022-06-27 10:11] LABS: INTERNATIONAL NORM RATIO 0.9 (0.9-1.1); Prothrombin Time 10.4 SEC (10.0-13.1)
[2022-06-27 10:14] LABS: Partial Thromboplastin Time 23.3 SEC (26.0-36.4)
[2022-06-27 10:17] LABS: B Type Natriuretic Peptide 35 pg/mL (<100)
[2022-06-27 10:26] LABS: Alanine Aminotransferase 17 U/L (0-40); Albumin Level 3.3 g/dL (3.5-5.0); Alkaline Phosphatase 98 U/L (39-117); Anion Gap 16 (12-20); Aspartate Amino Transferase 27 U/L (5-37); Bilirubin Direct < 0.2 mg/dL (0.0-0.5); Bilirubin Total 0.5 mg/dL (0.0-1.0); Blood Urea Nitrogen 25 mg/dL (9-16); Calcium 8.6 mg/dL (8.4-10.2); Carbon Dioxide 22 mmol/L (22-29); Chloride 110 mmol/L (96-108); Creatinine Clr Calc Pharmacy 72.4; Estimated Glomerular Filt Rate 56; Glucose Random 97 mg/dL (60-115); Magnesium 1.9 mg/dL (1.6-2.6); Potassium 5.3 mmol/L (3.3-5.1); Sodium 143 mmol/L (135-145)
[2022-06-27 12:03] VITALS: BP 128/65; PULSE 60; RESP 18; O2SAT 97
== END 2022-06-27 12:24 | disposition home or self-care (01) ==
PROVIDERS: Physician Assistant; Emergency Provider Emergency Medicine; PCP Internal Medicine
DX: L30.9 Dermatitis, unspecified (principal); R06.02 Shortness of breath; Z20.822 Contact with and (suspected) exposure to COVID-19; Z20.828 Contact with and (suspected) exposure to other viral communicable diseases; Z79.899 Other long term (current) drug therapy; Z86.718 Personal history of other venous thrombosis and embolism; Z79.01 Long term (current) use of anticoagulants
CPT/HCPCS: 80048; 80076; 83735; 83880; 85025; 85610; 85730; 87635; 99283; 99284

== ENCOUNTER 2022-06-29 13:13 | Emergency (ER) | payer MEDICARE, MEDICAID, SELFPAY ==
[2022-06-29 13:31] VITALS: BP 111/62; PULSE 61; RESP 18; TEMP 36.8; O2SAT 98; BMI 54.8
--- OUTSIDE RECORDS SUMMARY | 2022-06-29 13:44 | XMS_ITS | Continuity of Care Document ---
:1950 Author Organization [facility] Address [address] [place] [address]- Care Team Providers Name Role Phone Meng Nunez MD Primary Care Physician [place] [facility] [place] - 01/29/21 [facility] [address] [place] [address]- Attending Physician: Manuelito Fan MD Admitting Physician: Manuelito Fan MD Referring Physician: Meng Nunez MD Allergies, Adverse Reactions, Alerts Substance Reaction Severity Status simvastatin Leg cramps Active Other Environmental Allergy gold injection-itching Active Medications Seng Aspirin 325 mg oral tablet 1 tablet = 325 mg, By Mouth, Daily, PRN Headache, 0 Refills, Maintenance, 12/23/17 10:34:46 EDT Start Date: 12/23/17 Status: OrderedColace sodium 100 mg oral capsule 100 mg, 1, capsule, By Mouth, 2 times a day, Refills 0, Maintenance, 10/27/20 12:06:00 EDT, Partial fill upon patient request if the prescription is for a schedule II opioid drug. Start Date: 10/27/20 Status: OrderedCompression Stockings See Instructions, # 2 each, Refills 2, Tot. Refills 2, Maintenance, surgical, knee length 20-30 mm Hg Dx: Venous Stasis, 10/27/20 11:48:00 EDT, Supply Start Date: 10/27/20 Status: OrderedEliquis 5 mg oral tablet 1 tablet = 5 mg, By Mouth, 2 times a day, 0 Refills, Maintenance, 10/27/20 12:07:00 EDT, Partial fill upon patient request if the prescription is for a schedule II opioid drug. Start Date: 10/27/20 Status: OrderedEnbrel See Instructions, 1 injection weekly on sundays, 0 Refills, Maintenance, 12/23/17 10:38:58 EDT Start Date: 12/23/17 Status: Orderedferrous sulfate 325 mg oral tablet 1 tablet = 325 mg, By Mouth, 3 times a day, 0 Refills, Maintenance, 10/27/20 12:07:00 EDT, Partial fill upon patient request if the prescription is for a schedule II opioid drug. Start Date: 10/27/20 Status: OrderedFish Oil By Mouth, 0 Refills, Maintenance, 10/27/20 12:08:00 EDT, Partial fill upon patient request if the prescription is for a schedule II opioid drug. Start Date: 10/27/20 Status: OrderedFlomax 0.4 mg oral capsule 0.4 mg, 1, capsule, By Mouth, Daily, Refills 0, Maintenance, 10/27/20 12:07:00 EDT, Partial fill upon patient request if the prescription is for a schedule II opioid drug. Start Date: 10/27/20 Status: OrderedFluticasone Nasal See Instructions, Daily- 1 spray each nostril, 0 Refills, Maintenance, 02/26/12 10:40:28 EST Start Date: 02/26/12 Status: Orderedfolic acid 1 mg oral tablet 1 tablet = 1 mg, By Mouth, Daily, 0 Refills, Maintenance Start Date: 02/26/12 Status: Orderedibuprofen 800 mg oral tablet 800 mg, 1, tablet, By Mouth, 3 times a day, # 90 tablet, Refills 0, Maintenance, 12/23/17 10:36:26 EDT Start Date: 12/23/17 Status: OrderedMiraLax = 17 Gm, By Mouth, Daily, 0 Refills, Maintenance, 10/27/20 12:07:00 EDT, Partial fill upon patient request if the prescription is for a schedule II opioid drug. Start Date: 10/27/20 Status: Orderedomeprazole 20 mg oral enteric coated capsule 1 capsule = 20 mg, By Mouth, Daily, 0 Refills, Maintenance Start Date: 02/26/12 Status: OrderedoxyCODONE 10 mg oral tablet 1 tablet = 10 mg, By Mouth, Every 4 hours, PRN Pain , Moderate, 0 Refills, Maintenance, 12/23/17 11:57:43 EDT, Tablet Start Date: 12/23/17 Status: Orderedpromethazine 25 mg oral tablet 1 tablet = 25 mg, By Mouth, Every 6 hours, PRN Itch, 0 Refills, Maintenance, 02/26/12 10:42:01 EST Start Date: 02/26/12 Status: Orderedtrolamine salicylate 10% topical cream 0 Refills, Maintenance, 10/27/20 12:07:00 EDT, Partial fill upon patient request if the prescriptionis for a schedule II opioid drug. Start Date: 10/27/20 Status: OrderedTylenol 8 HR Arthritis Pain = 1,300 mg, By Mouth, Every 8 hours, 0 Refills, Maintenance, 10/27/20 12:08:00 EDT, Partial fill upon patient request if the prescription is for a schedule II opioid drug. Start Date: 10/27/20 Status: Ordered Problem List Condition Effective Dates Status Health Status Informant GERD (gastroesophageal reflux Active disease)(Confirmed) Morbid Obesity(Confirmed) Active MICHAEL (obstructive sleep Active apnea)(Confirmed) Rheumatoid Arthritis(Confirmed) Active
--- OUTSIDE RECORDS SUMMARY | 2022-06-29 13:44 | XMS_ITS | Continuity of Care Document ---
:1950 Author Organization [facility] Address [address] [place] [address]- Care Team Providers Name Role Phone Meng Nunez MD Primary Care Physician Encounter [facility] [place] Date(s): 01/09/21 - 01/16/21 [facility] [address] [place] [address]- Attending Physician: Manuelito Fan MD Admitting Physician: [...]
--- OUTSIDE RECORDS SUMMARY | 2022-06-29 13:44 | XMS_ITS | Continuity of Care Document ---
:1950 Author Organization [facility] Address [address] [place] [address]- Care Team Providers Name Role Phone Meng Nunez MD Primary Care Physician Encounter [facility] [place] Date(s): 04/04/21 - 08/02/21 [facility] [address] [place] [address]- Attending Physician: Manuelito Fan MD Admitting Physician: [...]
--- OUTSIDE RECORDS SUMMARY | 2022-06-29 13:44 | XMS_ITS | Continuity of Care Document ---
:1950 Author Organization [facility] Address [address] [place] [address]- Care Team Providers Name Role Phone Mayra MAC, Meng Velazquez Primary Care Physician [place] [facility] [place](s): 07/03/21 - 08/02/21 [facility] [address] [place] [address]- Attending Physician: Eva Broderick Admitting Physician: AdmEva mendez Referring Physician: Admtr, Ar8 Allergies, Adverse Reactions, Alerts Substance Reaction Severity [...]
--- OUTSIDE RECORDS SUMMARY | 2022-06-29 13:44 | XMS_ITS | Continuity of Care Document ---
:1950 Author Organization [facility] Address [address] [place] [address]- Care Team Providers Name Role Phone Mayra MAC, Meng Velazquez Primary Care Physician Encounter [facility] [place] Date(s): 01/19/21 - 02/18/21 [facility] [address] [place] [address]- Allergies, Adverse Reactions, Alerts Substance Reaction Severity [...]
--- OUTSIDE RECORDS SUMMARY | 2022-06-29 13:44 | XMS_ITS | Continuity of Care Document ---
:1950 Author Organization [facility] Address [address] [place] [address]- Care Team Providers Name Role Phone Mayra MAC, Meng Velazquez Primary Care Physician Encounter [facility] [place] Date(s): 10/27/20 - 11/03/20 [facility] [address] [place] [address]- Attending Physician: Manuelito Fan MD Admitting Physician: Manuelito Fan MD Referring Physician: Davidson Longoria MD Allergies, Adverse Reactions, Alerts Substance Reaction [...] (obstructive sleep Active apnea)(Confirmed) Rheumatoid Arthritis(Confirmed) Active Vital Signs Most recent to oldest [Reference Range]: 1 Height 170 cm (10/27/20 11:18 AM) Weight 109.09 kg (10/27/20 11:18 AM) Oxygen Saturation [94-100 %] 99 % (10/27/20 11:18 AM) Pulse Rate [55-90 bpm] 74 bpm (10/27/20 11:18 AM) Body Mass Index [18.5-24.99] 37.75 *>HHI* (10/27/20 11:18 AM) Blood Pressure [90-138/55-84 mm Hg] 120/80 mm Hg (10/27/20 11:18 AM) Mode of Delivery (Oxygen) Room air (10/27/20 11:18 AM) Blood pressure sites Arm, left (10/27/20 11:18 AM) Weight Obtained Via Patient/family stated (10/27/20 11:18 AM)
--- OUTSIDE RECORDS SUMMARY | 2022-06-29 13:44 | XMS_ITS | Continuity of Care Document ---
:1950 Author Organization [facility] Address [address] [place] [address]- Care Team Providers Name Role Phone Mayra MAC, Meng Velazquez Primary Care Physician Encounter [facility] [place] Date(s): 12/30/20 - 01/29/21 [facility] [address] [place] [address]- Attending Physician: Eva Broderick Admitting Physician: AdmtrEva Referring Physician: Admtr, Ar8 Allergies, Adverse Reactions, [...] Maintenance, 12/23/17 11:57:43 EDT, Tablet Start Date: 9/10/18 Status: Orderedpromethazine 25 mg oral tablet 1 [...]
[2022-06-29 14:09] VITALS: BP 104/53; PULSE 62; RESP 16; TEMP 36.7; O2SAT 97
--- NOTE | 2022-06-29 15:06 | ED_ITS ---
HPI - Skin/Abscess/Foreign Bdy General Chief complaint: Skin/Abscess/Foreign Body Stated complaint: BED SORES Time Seen by Provider: 06/29/22 15:06 Source: patient, EMS and old records reviewed Mode of arrival: EMS Limitations: no limitations History of Present Illness HPI narrative: 71-year-old male with history of morbid obesity, wheelchair/bedbound, history of rheumatoid arthritis, chronic pain on chronic opiates, psoriasis, CKD 3, DVT, lower extremity cellulitis, chronic edema, buttocks wound who presents to the ER for evaluation of worsening bedsores on his bottom. He was seen here 2 days ago for the same. He states he has had worsening pain in his buttocks despite taking around the clock oxycodone and ibuprofen. 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 He states there has been some bleeding with cleaning. No drainage of pus. No fevers. No chills. MD complaint: lesion Onset (ago): week(s) Location: buttocks Severity: severe Severity scale (1-10): 9 Quality: burning and aching Pain Consistency: constant Relieving factors: rest Exacerbating factors: palpation and other (nursing care, cleaning) Context: other (bedbound) Associated symptoms: denies other symptoms Treatments prior to arrival: OTC topical medication and corticosteroid Related Data Home Medications Medication Instructions Recorded Confirmed omeprazole 20 mg capsule,delayed 20 mg PO DAILY 05/04/20 06/28/22 release etanercept 50 mg/mL (1 mL) 50 mg subcut QWEEK 05/29/21 06/28/22 subcutaneous syringe (Enbrel) Previous Rx's Medication Instructions Recorded furosemide 20 mg tablet 20 mg PO BID #90 tabs 03/31/20 ferrous sulfate 324 mg (65 mg 324 mg PO BIDWM #60 tabs 05/11/20 iron) tablet,delayed release trolamine salicylate 10 % topical 1 appl topical BID #1 g 05/11/20 cream fluticasone propionate 50 2 spray intranasal DAILY #15.8 mL 05/29/21 mcg/actuation nasal spray,suspension miscellaneous medical supply 20 ea miscellaneous QIDACHS #500 ea 06/16/21 folic acid 1 mg tablet 1 mg PO DAILY #90 tabs 07/04/21 levothyroxine 75 mcg tablet 37.5 mcg PO DAILY #90 tabs 07/12/21 naloxegol 12.5 mg tablet (Movantik) 12.5 mg PO QAM #90 tabs 07/12/21 promethazine 25 mg tablet 12.5 mg PO BID PRN itch #180 tabs 07/12/21 tamsulosin 0.4 mg capsule (Flomax) 0.4 mg PO DAILY #90 caps 07/12/21 miscellaneous medical supply 5 ea miscellaneous QIDACHS #500 ea 07/18/21 polyethylene glycol 3350 17 gram 17 g PO DAILY #30 ea 09/15/21 oral powder packet diaper,brief,adult,disposable #60 ea 09/27/21 (Briefs, Adult-Extra Large) lactulose 10 gram/15 mL (15 mL) 10 g (15 mL) PO DAILY PRN 09/27/21 oral solution constipation #1,440 mL docusate sodium 100 mg capsule 100 mg PO BID PRN constipation 30 11/15/21 days #60 caps pads for bedsores 7 7/8 X 11 3/4 #50 ea 03/14/22 chux disposable bed liner #100 ea 06/07/22 flushable wipes #300 ea 06/07/22 nystatin 100,000 unit/gram topical 1 appl topical BID #60 grams 06/18/22 powder oxycodone 5 mg tablet 10 mg PO Q6H PRN pain #240 tabs 06/21/22 betamethasone dipropionate 0.05 % 1 appl topical DAILY #45 grams 06/27/22 topical ointment cephalexin 500 mg capsule 500 mg PO Q6H 7 days #28 caps 06/29/22 Allergies Allergy/AdvReac Type Severity Reaction Status Date / Time simvastatin [SIMVASTATIN] Allergy Unknown TOLD NEVER Verified 06/28/22 13:56 TO TAKE, Cramps in legs Gold shot AdvReac Unknown Itching Uncoded 02/15/22 14:18 Review of Systems Review of Systems: Yes all other systems are reviewed and are negative PMFSH Past Medical History Medical History Acute embolism and thrombosis of right femoral vein Acute thromboembolism of deep veins of lower extremity Arthritis of both knees Bacteremia Chronic arthritis Chronic kidney disease, stage 3 unspecified Chronic pain syndrome Constipation Esophageal reflux H/O gastric ulcer Morbid obesity Obstructive sleep apnea (adult) (pediatric) Other chronic pain Pain management Peripheral vascular disease Primary osteoarthritis, right shoulder Retention of urine Rheumatoid arthritis Rheumatoid arthritis Streptococcus, group b, as the cause of diseases classified elsewhere Unsteadiness on feet Weakness Surgical History H/O colonoscopy H/O esophagogastroduodenoscopy H/O rectal polypectomy History of bilateral cataract extraction Family History Family History Father CAD (coronary artery disease) Diabetes Mother Diabetes Brother Diabetes Social History Social History Household Members: None Housing: Apartment Do you presently have visiting nurse or other home services: Yes ([employer] 3hr/week & meals on wheels) Alcohol intake: never Patient Tobacco Use Status: Never used Tobacco e-Cigarette/Vaping Use: Never Used Second Hand Smoke Exposure: No Advance Directives: No Advance Directives Information Provided: Yes service: No Current occupational status: unemployed Cognitive needs: No Hearing needs: No Vision needs: No Physical Exam Vital Signs: Vital Signs: Last Vital Signs Temp 98.1 F 06/29/22 14:09 Pulse 62 06/29/22 14:09 Resp 16 06/29/22 14:09 BP 104/53 L 06/29/22 14:09 Pulse Ox 97 06/29/22 14:09 O2 Del Method 06/29/22 14:09 BMI result Body Mass Index 54.8 Appearance: Alert. Oriented X3. No acute distress. Eyes: Pupils equal, round and reactive to light. ENT: Pharynx normal. Neck: Normal inspection. Neck supple. CVS: Normal heart rate and rhythm. Pulses normal. Respiratory: No respiratory distress. Breath sounds normal. Abdomen: Obese Soft and nontender. +BS x4 Skin: Skin warm and dry. Erythematous, dry, plaque like rash on the trunk and buttocks, right flank. Extremities: No lower extremity edema. Neuro: Oriented X 3. No motor deficit. No sensory deficit. Medications Administered Generic Name Dose Route Start Last Admin Trade Name Freq PRN Reason Stop Dose Admin Cephalexin HCl 500 mg 06/29/22 18:00 06/29/22 17:34 Cephalexin 500 Mg Capsule PO 500 mg Q6H EZIO Administration Discontinued Medications Generic Name Dose Route Start Last Admin Trade Name Karen PRN Reason Stop Dose Admin Oxycodone HCl 10 mg 06/29/22 17:05 06/29/22 17:34 Oxycodone Hcl Immed Release 5 Mg Tablet PO 06/29/22 17:06 10 mg ONCE ONE Administration Medical Decision Making Medical Decision Making [facility] Narrative: 71 yo morbidly obese, bedbound/wheelchair bound male with hx RA, psoriasis with chronic pain here from home c/o worsening buttocks wound pain. Exam is consistent with cellulitis with raw, open skin areas. Stool on the areas. No palpable abscess or fluid collections. No rectal involvement. Basic labs show no leukocytosis. Compared to last week the areas more red and raw. Will start empiric antibiotics for cellulitis. No indication for imaging today. No evidence of an underlying abscess or deep infection. Patient has co supervisor grounds and landscape of the home from 11/11 in the morning till 1 in the afternoon and again from 16:00 to 20:00. He does not have visiting nursing care. Case Management was consulted so that patient can have a nursing evaluation at home for wound care. Was explained the importance of proper wound care, cleaning and barrier. At this time he does not require admission to the hospital, short-term rehab, wants to go back home. He is stable for DC. Differential Diagnosis Differential Diagnoses: The differential diagnosis associated with the presentation includes Cellulitis, pressure ulcer, psoriasis, no evidence of underlying deep tissue infection like abscess, a tunneling wound, osteomyelitis or Fausto's gangrene Lab Data [facility] Lab Attestation statement: I reviewed the patient's lab results. 06/29/22 16:38 06/29/22 16:38 Labs: Lab Results 06/29/22 06/29/22 06/29/22 Range/Units 16:38 16:38 16:39 WBC 7.9 (4.8-10.8) X10*3/uL RBC 3.74 L (4.60-5.80) X10*6/uL Hgb 11.8 L (14.0-18.0) g/dl Hct 37.8 L (42.0-52.0) % MCV 101.1 H (80.0-98.0) fL MCH 31.6 (27.0-33.0) pg MCHC 31.2 (31.0-36.0) g/dl RDW 14.6 (11.0-16.0) % Plt Count 201 (160-400) X10*3/uL MPV 10.2 (9.4-12.4) fL Immature Gran % (Auto) 0.9 H (0.0-0.4) % Neut % (Auto) 64.3 (45-73) % Lymph % (Auto) 19.5 L (20-40) % Hardy % (Auto) 7.4 (2-11) % Eos % (Auto) 7.4 H (0-4) % Baso % (Auto) 0.5 (0-2) % Lymph # (Auto) 1.6 (1.2-4.9) X10*3/uL Hardy # (Auto) 0.6 (0.1-1.2) X10*3/uL Eos # (Auto) 0.6 H (0.0-0.4) X10*3/uL Baso # (Auto) 0.0 (0.0-0.2) X10*3/uL Abs Immat Gran (auto) 0.07 H (0.00-0.03) X10*3/uL Absolute Neuts (auto) 5.1 (2.0-8.3) x10*3/uL Absolute Nucleated RBC 0.000 (0.0-0.012) X10*3/uL Nucleated RBC % (auto) 0.0 (0.0-0.2) /100WBC Sodium 142 (135-145) mmol/L Potassium 5.2 H (3.3-5.1) mmol/L Chloride 109 H (96-108) mmol/L Carbon Dioxide 25 (22-29) mmol/L Anion Gap 13 (12-20) BUN 21 H (9-16) mg/dL Creatinine 1.25 (0.5-1.4) mg/dL Estim Creat Clear Calc 64.9 Estimated GFR 57 Random Glucose 87 (60-115) mg/dL Calcium 8.7 (8.4-10.2) mg/dL Total Bilirubin 0.3 (0.0-1.0) mg/dL Direct Bilirubin < 0.2 (0.0-0.5) mg/dL AST 19 (5-37) U/L ALT 13 (0-40) U/L Alkaline Phosphatase 98 (39-117) U/L Total Protein 5.2 L (6.5-8.0) g/dL Albumin 2.9 L (3.5-5.0) g/dL COVID-19 (NELLIE) Negative (Negative) COVID-19 Clin Com See Note Independent Historian Clinical information obtained from an independent historian. History obtained from or confirmed by: EMS External Record Review External record reviewed: Office record, Outpatient record and Prior outpatient labs Prescription Management I considered prescription management with: Antibiotic Chronic Conditions Patient?s care impacted by: Other (obesity, bedbound status) Critical Care Time Critical Care Time Critical Care Time: No Discharge Plan Discharge Clinical Impression: Decubitus ulcer, Cellulitis Patient Disposition: Home, Self-Care Instructions: Cellulitis (ED), Pressure Injury (ED) Additional Instructions: Your lab workup was stable. Your pressure wounds on your bottom are red and raw, likely early infection. Take the prescribed antibiotic as directed. Complete the entire course and do not miss any doses. It is important that you are changed and cleaned well promptly after having a bowel movement. Stool in the wounds in risk for infection DO NOT USE BETAMETHASONE ON YOUR BOTTOM WOUND, only use this on your psoriasis rash Use a thick layer of a barrier cream to protect your wound and allow them to heal. It is important to keep pressure and weight off of the area as much as you can. Change your position every 2 hours. Follow up with your doctor next week. [facility]. Continue to take all of your pain medications as prescribed. Prescriptions: New cephalexin 500 mg capsule 500 mg PO Q6H 7 Days Qty: 28 0RF No Action furosemide 20 mg tablet 20 mg PO BID Qty: 90 8RF Hold Instructions: Resume on 05/13/20. miscellaneous medical supply Misc 20 ea miscellaneous QIDACHS Qty: 500 0RF folic acid 1 mg tablet 1 mg PO DAILY Qty: 90 8RF levothyroxine 75 mcg tablet 37.5 mcg PO DAILY Qty: 90 8RF Movantik 12.5 mg tablet 12.5 mg PO QAM Qty: 90 8RF Rx Instructions: must be taken on empty stomach; no food 1 hr after or 2-3 hrs before dose promethazine 25 mg tablet 12.5 mg PO BID PRN (Reason: itch) Qty: 180 8RF tamsulosin [Flomax] 0.4 mg capsule 0.4 mg PO DAILY Qty: 90 8RF miscellaneous medical supply Misc 5 ea miscellaneous QIDACHS Qty: 500 0RF Rx Instructions: Facial body wipes polyethylene glycol 3350 17 gram powder in packet 17 g PO DAILY Qty: 30 7RF lactulose 10 gram/15 mL (15 mL) solution 10 g PO DAILY PRN (Reason: constipation) Qty: 1440 0RF docusate sodium 100 mg capsule 100 mg PO BID PRN (Reason: constipation) 30 Days Qty: 60 7RF (DME) pads for bedsores 7 7/8 X 11 3/4 pad See Rx Instructions .Route Qty: 50 0RF Rx Instructions: As directed (DME) chux disposable bed liner large See Rx Instructions .Route .MEDSUPPLY Qty: 100 0RF Rx Instructions: As directed (DME) flushable wipes See Rx Instructions .Route .MEDSUPPLY Qty: 300 0RF Rx Instructions: As directed oxycodone 5 mg tablet 10 mg PO Q6H PRN (Reason: pain) Qty: 240 0RF trolamine salicylate 10 % Cream 1 appl topical BID Qty: 1 0RF Protocol: Apply to: Apply to: Right shoulder ferrous sulfate 324 mg (65 mg iron) Tablet,Delayed Release (Dr/Ec) 324 mg PO BIDWM Qty: 60 0RF nystatin 100,000 unit/gram powder 1 appl topical BID Qty: 60 0RF betamethasone dipropionate 0.05 % ointment 1 appl topical DAILY Qty: 45 0RF omeprazole 20 mg capsule,delayed release(DR/EC) 20 mg PO DAILY Enbrel 50 mg/mL (1 mL) syringe 50 mg subcut QWEEK fluticasone propionate 50 mcg/actuation spray,suspension 2 spray intranasal DAILY Qty: 15.8 8RF Rx Instructions: administer into each nostril (DME) Briefs, Adult-Extra Large Misc See Rx Instructions .Route Qty: 60 3RF Rx Instructions: Size 2x - 2 briefs daily
[2022-06-29 16:46] LABS: Basophils Percent Auto 0.5 % (0-2); Eosinophils Absolute Auto 0.6 X10*3/uL (0.0-0.4); Eosinophils Percent Auto 7.4 % (0-4); Hematocrit 37.8 % (42.0-52.0); Hemoglobin 11.8 g/dl (14.0-18.0); Imm Gran Abs Auto 0.07 X10*3/uL (0.00-0.03); Imm Gran Pct Auto 0.9 % (0.0-0.4); Lymphocytes Absolute Auto 1.6 X10*3/uL (1.2-4.9); Lymphocytes Percent Auto 19.5 % (20-40); MANUAL DIFF FLAG NO; Mean Corpuscular HGB Conc 31.2 g/dl (31.0-36.0); Mean Corpuscular Hemoglobin 31.6 pg (27.0-33.0); Mean Corpuscular Volume 101.1 fL (80.0-98.0); Mean Platelet Volume 10.2 fL (9.4-12.4); Monocytes Absolute Auto 0.6 X10*3/uL (0.1-1.2); Monocytes Percent Auto 7.4 % (2-11); Neutrophils Absolute Auto 5.1 x10*3/uL (2.0-8.3); Neutrophils Percent Auto 64.3 % (45-73); Platelet Count 201 X10*3/uL (160-400); Red Blood Count 3.74 X10*6/uL (4.60-5.80); Red Cell Distribution Width 14.6 % (11.0-16.0); White Blood Count 7.9 X10*3/uL (4.8-10.8)
[2022-06-29 17:02] LABS: Alanine Aminotransferase 13 U/L (0-40); Albumin Level 2.9 g/dL (3.5-5.0); Alkaline Phosphatase 98 U/L (39-117); Anion Gap 13 (12-20); Aspartate Amino Transferase 19 U/L (5-37); Bilirubin Direct < 0.2 mg/dL (0.0-0.5); Bilirubin Total 0.3 mg/dL (0.0-1.0); Blood Urea Nitrogen 21 mg/dL (9-16); Calcium 8.7 mg/dL (8.4-10.2); Carbon Dioxide 25 mmol/L (22-29); Chloride 109 mmol/L (96-108); Creatinine Clr Calc Pharmacy 64.9; Estimated Glomerular Filt Rate 57; Glucose Random 87 mg/dL (60-115); Potassium 5.2 mmol/L (3.3-5.1); Sodium 142 mmol/L (135-145); Total Protein 5.2 g/dL (6.5-8.0)
[2022-06-29 17:09] LABS: COVID-19 Test Negative (Negative); IDNOW Serial# 55D5AD1C
[2022-06-29] MEDS: cephALEXin 500 MG CAPSULE PO (17:34)
[2022-06-29] MEDS: oxyCODONE HCl Immed Release 5 MG TABLET 10 MG PO (17:34)
--- NOTE | 2022-06-29 17:59 | MHC.EDTECH ---
Mikey called at 175 for a s transfer home,[place] [address] aware
[2022-06-29 18:13] VITALS: BP 107/65; PULSE 65; RESP 19; TEMP 36.8; O2SAT 97
== END 2022-06-29 20:21 | disposition home or self-care (01) ==
PROVIDERS: Physician Assistant; Emergency Provider Emergency Medicine
DX: L89.306 Pressure-induced deep tissue damage of unspecified buttock (principal); L03.116 Cellulitis of left lower limb; L03.115 Cellulitis of right lower limb; Z20.822 Contact with and (suspected) exposure to COVID-19; Z20.828 Contact with and (suspected) exposure to other viral communicable diseases; Z79.899 Other long term (current) drug therapy
CPT/HCPCS: 80048; 80076; 85025; 87635; 99283; 99284

== ENCOUNTER 2022-09-07 08:49 | Outpatient (RCR) | payer MEDICARE, MEDICAID, SELFPAY | END 2022-09-07 09:16 | disposition home or self-care (01) | LOC: HO.WCC 08:49 | PROVIDERS: PCP Internal Medicine; Visit Provider Physician Assistant | DX: Z09 Encounter for follow-up examination after completed treatment for conditions other than malignant neoplasm (principal) ==

== ENCOUNTER 2022-10-30 10:18 | Outpatient (AMB) | payer MEDICARE, MEDICAID, SELFPAY ==
--- NOTE | 2022-10-30 10:22 | A.OFFPC_ITS ---
Vital Signs 10/30/22 10:24 Height 5 ft 7 in Weight 301 lb BMI 47.1 BP 130/60 Blood Pressure Location Lt brachial Position Sitting Pulse 97 Pulse Source Pulse Oximeter Pulse Oximetry (%) 92 Oxygen Delivery Method Room Air Intake Visit Reasons: F/U Intake Note: Patient is here to follow up on Hypothyroidism, ABEL, Chronic pain. Getting electric wheelchair evaluate. Dry Wall Finisher Required: No Materials Handling Equipment Operator: Present Accompanied by: staff Allergies simvastatin [SIMVASTATIN] Allergy (Unknown, Verified 10/30/22 10:24) TOLD NEVER TO TAKE, Cramps in legs Gold shot Adverse Reaction (Unknown, Uncoded 10/30/22 10:24) Itching Tobacco use date assessed: 10/30/22 Fall risk assessment: 1 Fall in past year Last assessed Fall Risk: 10/30/22 Dental Screening Dental Screen Date: 10/30/22 Did you have a dental visit in the last 12 months?: No Did you have a dental problem in the last 6 months where you did not have access to dental care?: No Was dental information given to patient?: Patient has dentist HPI F/U HPI Details f/u chronic knee pain due to OA on pain meds; RA and sees rheum hypothyroidism on rx PFSH Medical History (Updated 10/30/22 @ 10:56 by Meng Nunez MD) Acute embolism and thrombosis of right femoral vein Acute thromboembolism of deep veins of lower extremity Arthritis of both knees Bacteremia Chronic arthritis Chronic kidney disease, stage 3 unspecified Chronic pain syndrome Constipation Esophageal reflux H/O gastric ulcer Morbid obesity Obstructive sleep apnea (adult) (pediatric) Other chronic pain Pain management Peripheral vascular disease Primary osteoarthritis, right shoulder Retention of urine Rheumatoid arthritis Rheumatoid arthritis Streptococcus, group b, as the cause of diseases classified elsewhere Unsteadiness on feet Weakness Surgical History H/O colonoscopy H/O esophagogastroduodenoscopy H/O rectal polypectomy History of bilateral cataract extraction Family History (Updated 10/30/22 @ 10:22 by KASSIDY Desir) Father CAD (coronary artery disease) Diabetes Mother Diabetes Brother Diabetes Social History Household Members: None Housing: Apartment Do you presently have visiting nurse or other home services: Yes ([employer] HELPER 3hr/week & meals on wheels) Alcohol intake: never Patient Tobacco Use Status: Never used Tobacco e-Cigarette/Vaping Use: Never Used Second Hand Smoke Exposure: No service: No Current occupational status: unemployed Cognitive needs: Yes (wheel chair) Hearing needs: No Vision needs: Yes (glasses) Questionnaire Thrive Questionnaire Date Thrive assessed: 06/28/22 TACO-7 AMB Questionnaire TACO-7 Date TACO - 7 assessed: 06/28/22 Source: Developed by Drs. Rich Douglass, Diya Briones, Pavel Arita and colleagues, with an educational yaritza from [employer]. Review of Systems Const Denies chills, Denies headache(s) and Denies weight loss ENT Denies headache(s) Card Denies chest pain, Denies syncope, Denies irregular heart rhythm and Denies dyspnea Resp Denies chest congestion, Denies cough and Denies dyspnea GI Denies abdominal pain, Denies change in stool character, Denies nausea and Denies vomiting Musc Denies deformity and Denies joint swelling Neuro Denies syncope and Denies headache(s) Physical exam (Primary Care) Vital Signs: Last Vital Signs Pulse 97 10/30/22 10:24 BP 130/60 10/30/22 10:24 Pulse Ox 92 10/30/22 10:24 Oxygen Delivery Method Room Air 10/30/22 10:24 BMI result Body Mass Index 47.1 BMI Assessment/Plan discussion: High BMI High, discussed plan: lifestyle, weight reduction, dietary and physical activity Tobacco/Smoking Status: Tobacco use Status Tobacco use date assessed 10/30/22 10/30/22 10:33 Patient Tobacco Use Status Never used Tobacco 10/30/22 10:33 e-Cigarette/Vaping Use Never Used 10/30/22 10:33 Thrive Assessment: Date of Thrive Assessment Date Thrive assessed 06/28/22 10/30/22 10:33 Const General: cooperative and no acute distress Nutritional Appearance: obese Resp Effort & Inspection: normal respiratory effort Auscultation: clear to auscultation bilaterally Percussion: percussion normal Cardio Jugular venous distension: no JVD Rate: regular rate Rhythm: regular rhythm GI Inspection: Yes obesity Assessment and Plan Assessment & Plan (1) Morbid obesity: Code(s): E66.01 - Morbid (severe) obesity due to excess calories Plan: as above (2) Hypothyroidism: Code(s): E03.9 - Hypothyroidism, unspecified Plan: stable; same rx (3) Rheumatoid arthritis: Code(s): M06.9 - Rheumatoid arthritis, unspecified Plan: as per rheum (4) Pain management: Code(s): R52 - Pain, unspecified Plan: stable; same rx Medications: Refilled nystatin 1 appl topical BID 60 grams 0RF oxycodone 10 mg (2 x 5 mg) PO Q6H PRN 240 tabs 0RF pain Coding Level of Care Code Est Pt Level 4 (26726) Diagnoses Morbid obesity E66.01 Hypothyroidism E03.9 Rheumatoid arthritis M06.9 Pain management R52
[2022-10-30 10:24] VITALS: BP 130/60; PULSE 97; O2SAT 92; BMI 47.1
== END 2022-10-30 10:55 | disposition home or self-care (01) ==
PROVIDERS: PCP Internal Medicine; Visit Provider Internal Medicine
DX: E03.9 Hypothyroidism, unspecified (principal); M06.9 Rheumatoid arthritis, unspecified; E66.01 Morbid (severe) obesity due to excess calories; Z68.42 Body mass index [BMI] 45.0-49.9, adult; R52 Pain, unspecified
CPT/HCPCS: 99214

== ENCOUNTER 2022-11-17 20:03 | Inpatient (IN) | payer MEDICARE, MEDICAID, SELFPAY ==
--- NOTE | ~2022-11-17 | US_ITS ---
EXAMINATION: US VENOUS ULTRASOUND WITH DOPPLER LOWER EXTREMITY, BILATERAL CLINICAL INFORMATION: Reassess deep venous thrombosis. COMPARISON: Venous ultrasound study dated 11/18/2022. TECHNIQUE: Ultrasound of the deep veins is performed from the hip to the calf with compression sonography and color and pulse Doppler assessment. Spectral analysis with color-flow imaging is performed. FINDINGS: RIGHT: An intraluminal echogenic focus is seen in the mid segment of the right femoral vein. Adjacent hypoechoic foci are seen as well with diminished flow and compressibility. The right common femoral, profunda femoral, proximal femoral and distal femoral veins appear patent. Suboptimal evaluation of the popliteal vein without overt abnormality. The right posterior tibial and peroneal veins were suboptimally evaluated. No right popliteal cyst. The subcutaneous soft tissues are unremarkable. LEFT: Positive deep venous thrombosis is seen in the left common femoral, profunda femoral, femoral, popliteal and posterior tibial veins. No left popliteal cyst. The subcutaneous soft tissues are unremarkable. US/US venous duplex LE BI IMPRESSION: Positive deep venous thrombosis bilaterally, more extensive in the left lower extremity as detailed above.
--- NOTE | ~2022-11-17 | US_ITS ---
EXAMINATION: US VENOUS ULTRASOUND WITH DOPPLER LOWER EXTREMITY, BILATERAL CLINICAL INFORMATION: Pain and swelling COMPARISON: Prior study April 2020 TECHNIQUE: Ultrasound of the deep veins is performed from the hip to the calf with compression sonography and color and pulse Doppler assessment. Spectral analysis with color-flow imaging is performed. FINDINGS: Exam extremely limited , deep veins could not be visualized, this is a nondiagnostic exam. Only the proximal portion of the common femoral veins were visualized documenting venous flow, however most of the venous system on both legs not visualized, and no venous flow,, this could be due to chronic thrombosis and/or technical difficulty by the lace paper machine operator. US/US venous duplex LE BI IMPRESSION: NONDIAGNOSTIC STUDY, difficulty by the lace paper machine operator. The veins could not be visualized, CANNOT RULE OUT THROMBOSIS. Recommendation: consider anticoagulation and follow-up repeat exam in 24 to 48 hours. (Referring physician staff is being called, by physician staff assistance, to be alerted of the above critical findings and recommendations.) A J 11/18/2022 9:36 AM
--- NOTE | ~2022-11-17 | CT_ITS ---
EXAMINATION: CT ANGIOGRAM OF THE CHEST WITH AND WITHOUT CONTRAST (CT PULMONARY ANGIOGRAM FOR PE) CLINICAL INFORMATION: Reason for Exam dvt c/o chest heaviness COMPARISON: DVT ultrasound from 11/20/2022. Chest radiograph 05/06/2020. TECHNIQUE: Prior to contrast administration, noncontrast localization images were obtained. Subsequently, multidetector volumetric imaging was performed from the thoracic inlet to below the diaphragms following the administration of 65 mL Omnipaque 350 intravenous contrast. No contrast reaction reported Sagittal, coronal, and MIP oblique sagittal reformatted images were obtained on the CT workstation, uploaded to PACS, and reviewed. This CT examination was performed using dose optimization techniques as appropriate, variously including the following: *Automated exposure control *Adjustment of mA and/or kV according to patient size (this includes techniques or standardized protocols for targeted exams where dose is matched to indication/reason for exam; i.e. extremities or head) *Use of iterative reconstruction technique Total exam dose-length product 526 mGy-cm FINDINGS: QUALITY OF STUDY/CONTRAST BOLUS: Suboptimal. Unfortunately the majority of the contrast is within the aorta. PULMONARY ARTERIES: There is no central pulmonary embolism. Cannot accurately evaluate for pulmonary emboli beyond this level due to lack of opacification of the pulmonary arteries. THORACIC AORTA: No aneurysm. LUNG: The central airways are patent. Areas of linear atelectasis seen bilaterally. No dense consolidation. No suspicious pulmonary nodule. PLEURA: No pleural effusion or pneumothorax. MEDIASTINUM: Normal heart size. No pericardial effusion. No hilar or mediastinal lymphadenopathy. No evidence of septal bowing or right heart strain. CORONARY ARTERY CALCIFICATION: Present CHEST WALL/AXILLA: No axillary or internal mammary lymphadenopathy. OSSEOUS STRUCTURES: No acute or suspicious osseous abnormality. Degenerative change throughout the spine. UPPER ABDOMEN: Unremarkable. No reflux of contrast into the hepatic veins to suggest elevated right heart pressures. CT/CT angio chest PE protocol IMPRESSION: 1. Essentially nondiagnostic evaluation for pulmonary embolism. No central pulmonary embolism. Cannot accurately evaluate for pulmonary emboli beyond this level due to lack of opacification of the pulmonary arteries. Repeat attempt of CT angiogram could be performed. Alternatively, nuclear medicine VQ scan could be obtained. 2. No acute pulmonary finding. . VTE: indeterminate
[2022-11-17 20:07] VITALS: BP 130/82; PULSE 112; O2SAT 95
[2022-11-17 20:22] VITALS: BP 130/82; BP 95/66; PULSE 103; PULSE 112; RESP 16; TEMP 37.2; O2SAT 95; O2SAT 96; BMI 47.1
[2022-11-17 20:29] VITALS: BP 84/52; PULSE 104; RESP 16; O2SAT 96
--- OUTSIDE RECORDS SUMMARY | 2022-11-17 20:58 | XMS_ITS | Continuity of Care Document ---
Author Name Unknown Organization [facility] ter Address [address] [place] [id number]- Care Team Providers Care Photographer Motion Picture Name Role Phone Meng Nunez MD Primary Care Physician Encounter [facility] Date(s): 11/13/22 - 11/13/[address] [address]- Discharge Disposition: A-D/C Home Attending Physician: Vanesa Rocha DO Admitting Physician: Vanesa Rocha DO Referring Physician: Not on Staff, Referring MD Allergies, Adverse Reactions, Alerts Substance Reaction Severity Status simvastatin Leg cramps Active Other Environmental Allergy gold injection-itching Active Medications Seng Aspirin 325 mg oral tablet 1 tablet = 325 mg, By Mouth, Daily, PRN Headache, 0 Refills, Maintenance, 12/23/17 10:34:46 EDT Start Date: 12/23/17 Status: Ordered Colace sodium 100 mg oral capsule 100 mg, 1, capsule, By Mouth, 2 times a day, Refills 0, Maintenance, 10/27/20 12:06:00 EDT, Partialfill upon patient request if the prescription is for a schedule II opioid drug. Start Date: 10/27/20 Status: Ordered Compression Stockings See Instructions, # 2 each, Refills 2, Tot. Refills 2, Maintenance, surgical, knee length 20-30 mm Hg Dx: Venous Stasis, 10/27/20 11:48:00 EDT, Supply Start Date: 10/27/20 Status: Ordered Eliquis 5 mg oral tablet 1 tablet = 5 mg, By Mouth, 2 times a day, 0 Refills, Maintenance, 10/27/20 12:07:00 EDT, Partial fill upon patient request if the prescription is for a schedule II opioid drug. Start Date: 10/27/20 Status: Ordered Enbrel See Instructions, 1 injection weekly on sundays, 0 Refills, Maintenance, 12/23/17 10:38:58 EDT Start Date: 12/23/17 Status: Ordered ferrous sulfate 325 mg oral tablet 1 tablet = 325 mg, By Mouth, 3 times a day, 0 Refills, Maintenance, 10/27/20 12:07:00 EDT, Partial fill upon patient request if the prescription is for a schedule II opioid drug. Start Date: 10/27/20 Status: Ordered Fish Oil By Mouth, 0 Refills, Maintenance, 10/27/20 12:08:00 EDT, Partial fill upon patient request if the prescription is for a schedule II opioid drug. Start Date: 10/27/20 Status: Ordered Flomax 0.4 mg oral capsule 0.4 mg, 1, capsule, By Mouth, Daily, Refills 0, Maintenance, 10/27/20 12:07:00 EDT, Partial fill upon patient request if the prescription is for a schedule II opioid drug. Start Date: 10/27/20 Status: Ordered Fluticasone Nasal See Instructions, Daily- 1 spray each nostril, 0 Refills, Maintenance, 02/26/12 10:40:28 EST Start Date: 02/26/12 Status: Ordered folic acid 1 mg oral tablet 1 tablet = 1 mg, By Mouth, Daily, 0 Refills, Maintenance Start Date: 02/26/12 Status: Ordered ibuprofen 800 mg oral tablet 800 mg, 1, tablet, By Mouth, 3 times a day, # 90 tablet, Refills 0, Maintenance, 12/23/17 10:36:26 EDT Start Date: 12/23/17 Status: Ordered MiraLax = 17 Gm, By Mouth, Daily, 0 Refills, Maintenance, 10/27/20 12:07:00 EDT, Partial fill upon patient request if the prescription is for a schedule II opioid drug. Start Date: 10/27/20 Status: Ordered omeprazole 20 mg oral enteric coated capsule 1 capsule = 20 mg, By Mouth, Daily, 0 Refills, Maintenance Start Date: 02/26/12 Status: Ordered oxyCODONE 10 mg oral tablet 1 tablet = 10 mg, By Mouth, Every 4 hours, PRN Pain , Moderate, 0 Refills, Maintenance, 12/23/17 11:57:43 EDT, Tablet Start Date: 12/23/17 Status: Ordered oxyCODONE 5 mg oral tablet 5 mg, Tablet, By Mouth, Once, STAT, 11/13/22 16:15:00 EDT, Stop date 11/13/22 16:15:00 EDT Start Date: 11/13/22 Stop Date: 11/13/22 Status: Completed promethazine 25 mg oral tablet 1 tablet = 25 mg, By Mouth, Every 6 hours, PRN Itch, 0 Refills, Maintenance, 02/26/12 10:42:01 EST Start Date: 02/26/12 Status: Ordered trolamine salicylate 10% topical cream 0 Refills, Maintenance, 10/27/20 12:07:00 EDT, Partial fill upon patient request if the prescription is for a schedule II opioid drug. Start Date: 10/27/20 Status: Ordered Tylenol 8 HR Arthritis Pain = 1,300 mg, By Mouth, Every 8 hours, 0 Refills, Maintenance, 10/27/20 12:08:00 EDT, Partial fill upon patient request if the prescription is for a schedule II opioid drug. Start Date: 10/27/20 Status: Ordered Problem List Condition Confirmation Course Effective Dates Status Health St atus Informant GERD (gastroesophageal reflux disease) Confirmed Active Morbid Obesity Confirmed Active MICHAEL (obstructive sleep apnea) Confirmed Active Rheumatoid Arthritis Confirmed Active Vital Signs Most recent to oldest [Reference Range]: 1 2 3 Oxygen Saturation [94-100 %] 99 % (11/13/22 5:40 PM) 97 % (11/13/22 4:24 PM) 99 % (11/13/22 2:44 PM) Pulse Rate [55-90 bpm] 87 bpm (11/13/22 5:40 PM) 96 bpm *H* (11/13/22 4:24 PM) 89 bpm (11/13/22 2:44 PM) Blood Pressure [90-138/55-84 mm Hg] 109/91mm Hg (11/13/22 5:40 PM) 95/63mm Hg (11/13/22 4:24 PM) 112/80mm Hg (11/13/22 2:44 PM) Respiratory Rate [16-30 br/min] 18 br/min (11/13/22 5:40 PM) 16 br/min (11/13/22 4:24 PM) 22 br/min (11/13/22 4:19 PM) Temperature [96.8-100.4 DegF] 97.4 DegF (11/13/22 11:43 AM) Mode of Delivery (Oxygen) Room air (11/13/22 5:40 PM) Room air (11/13/22 4:24 PM) Room air (11/13/22 2:44 PM) Temperature Route Oral (11/13/22 11:43 AM) EKG study * Event Display: ECG 12-Lead Authored Date: Please click on pdf link to open report * Event Display: ECG 12-Lead Authored Date: Ventricular Rate: 75 BPM Atrial Rate: 75 BPM P-R Interval: 156 ms QRS Duration: 88 ms Q-T Interval: 396 ms QTC Calculation(Bazett): 442 ms P Vera: 25 degrees R Vera: 1 degrees T Vera: 40 degrees Normal sinus rhythm with sinus arrhythmia Normal ECG When compared with ECG of 02-OCT-2022 22:14, No significant change was found Confirmed by ARGENTINA EDWARDS ([id number]) on 11/13/2022 3:32:50 PM Sikes: ARGENTINA EDWARDS Patient Care team information Care Team Personnel Name: Meng Nunez MD Position: Reference Physician Member Role: PCP Address: Address: [address] [place] [address] Name: Lakshmi Collier Position: [facility] Associate Professional Member Role: ED Physician Pipe Welder Address: Address: [address] [place] [address] Name: Rashawn Torres RN Position: [facility] ED RN W/OE and Tasks Member Role: Patient Care Provider Name: Jason Smith MD Position: [facility] Resident Address: Address: [address] [place] [address] Name: Rylie Fisher Position: [facility] ED TA [facility] Name: Vanesa Rocha DO Position: [facility] Resident Member Role: Admitting Physician Address: Address: [address] [place] [address] Name: Gregoria Diaz RN Position: [facility] ED RN W/OE and Tasks Member Role: Patient Care Provider Care Team Related Persons Name: MONTEZ FAIRBANKS
--- OUTSIDE RECORDS SUMMARY | 2022-11-17 20:58 | XMS_ITS | Continuity of Care Document ---
Author Name Unknown Organization [facility] ter Address [address] [place] [phone]- Care Team Providers Care Primer Inserting Machine Adjuster Name Role Phone Meng Nunez MD Primary Care Physician Encounter [facility] Date(s): 10/02/22 - 10/03/[address] [address]- Encounter Diagnosis Wound of back(Final) - 10/02/22 Discharge Disposition: A-D/C Home Attending Physician: Andrea Key MD Admitting Physician: Andrea Key MD Referring Physician: Not on Staff, Referring MD [...] EDT, Tablet Start Date: 12/23/17 Status: Ordered promethazine 25 mg oral tablet 1 tablet [...] 1 2 3 Oxygen Saturation [94-100 %] 96 % (10/03/22 1:26 AM) 95 % (10/02/22 11:56 PM) 95 % (10/02/22 9:45 PM) Pulse Rate [55-90 bpm] 82 bpm (10/03/22 1:26 AM) 78 bpm (10/02/22 11:56 PM) 75 bpm (10/02/22 9:45 PM) Blood Pressure [90-138/55-84 mm Hg] 114/52mm Hg (10/03/22 1:26 AM) 113/73mm Hg (10/02/22 11:56 PM) 96/67mm Hg (10/02/22 9:45 PM) Respiratory Rate [16-30 br/min] 18 br/min (10/03/22 1:26 AM) 20 br/min (10/02/22 11:56 PM) 15 br/min *L* (10/02/22 9:45 PM) Temperature [96.8-100.4 DegF] 97.9 DegF (10/03/22 1:26 AM) 97.7 DegF (10/02/22 11:56 PM) 98.0 DegF (10/02/22 7:01 PM) Mode of Delivery (Oxygen) Room air (10/03/22 1:26 AM) Room air (10/02/22 11:56 PM) Room air (10/02/22 9:45 PM) Blood pressure sites Arm, right (10/03/22 1:26 AM) Arm, left (10/02/22 11:56 PM) Arm, left (10/02/22 9:45 PM) Temperature Route Oral (10/03/22 1:26 AM) Oral (10/02/22 11:56 PM) Oral (10/02/22 7:01 PM) EKG study * Event Display: EKG Authored Date: Patient Care team information Care Team Personnel Name: Mayra MAC, Meng Velazquez Position: Reference Physician Member Role: PCP Address: Address: [address] [place] [address] Name: Marcia Richards MD Position: [facility] Resident Member Role: ED Resident Address: Address: [address] [place] [address]- Name: Joe LOWERY, Argenis Position: [facility] ED RN W/OE and Tasks Member Role: Patient Care Provider Name: Andrea Key MD Position: [facility] Resident Member Role: ED Attending Physician Address: Address: [address] [place] [address]- Name: Santa Ricketts Position: [facility] ED TA [facility] Member Role: Coding Tech Care Team Related Persons Name: MONTEZ FAIRBANKS
--- OUTSIDE RECORDS SUMMARY | 2022-11-17 20:58 | XMS_ITS | Continuity of Care Document ---
Author Name Unknown Organization [facility] Address [address] [place] [id number]- Care Team Providers Care Poultry Farmer Egg Name Role Phone Meng Nunez MD [id number] Date[facility] 10/11/22 - 11/10/22 [facility] [address] [place] [phone]- Attending Physician: Eva Broderick Admitting Physician: AdmtrEva Referring Physician: Admtr ArNette Allergies, Adverse Reactions, Alerts Substance Reaction Severity [...] apnea) Confirmed Active Rheumatoid Arthritis Confirmed Active Patient Care team information Care Team Personnel Name: Mayra MAC, Meng Velazquez Position: Reference Physician Member Role: PCP Address: Address: [address] [place] [address]- Care Team Related Persons Name: TIKISeptember
--- OUTSIDE RECORDS SUMMARY | 2022-11-17 20:58 | XMS_ITS | Continuity of Care Document ---
Author Name Unknown Organization [facility] Address [address] [place] [address]- Care Team Providers Care Barbed Wire Machine Operator Name Role Phone Meng Nunez MD [id number] - 11/10/[facility] [address] [place] [id number] Attending Physician: Daryl Whiting MD Admitting Physician: Daryl Whiting MD Referring Physician: Meng Nunez MD Allergies, [...] Reference Physician Member Role: PCP Address: Address: [address] [place] [address]- Care Team Related Persons Name: TIKI MONTEZ
--- NOTE | 2022-11-17 21:31 | ED.GENADULT ---
HPI - General Adult General Chief complaint: General Medical Stated complaint: pitting edema Time Seen by Provider: 11/17/22 21:22 Source: patient and EMS Mode of arrival: EMS Limitations: no limitations History of Present Illness HPI narrative: Patient nonambulatory obese patient with recurrent cellulitis comes here for bilateral leg swelling for last 2 weeks with increased erythema denies any significant increase in shortness of breath while lying down no chest pain no fever on home oxygen at baseline Related Data Home Medications Medication Instructions Recorded Confirmed omeprazole 20 mg capsule,delayed 20 mg PO DAILY 05/04/20 09/18/22 release etanercept 50 mg/mL (1 mL) 50 mg subcut QWEEK 05/29/21 09/18/22 subcutaneous syringe (Enbrel) Previous Rx's Medication Instructions Recorded furosemide 20 mg tablet 20 mg PO BID #90 tabs 03/31/20 ferrous sulfate 324 mg (65 mg 324 mg PO BIDWM #60 tabs 05/11/20 iron) tablet,delayed release trolamine salicylate 10 % topical 1 appl topical BID #1 g 05/11/20 cream miscellaneous medical supply 20 ea miscellaneous QIDACHS #500 ea 06/16/21 folic acid 1 mg tablet 1 mg PO DAILY #90 tabs 07/04/21 levothyroxine 75 mcg tablet 37.5 mcg PO DAILY #90 tabs 07/12/21 naloxegol 12.5 mg tablet (Movantik) 12.5 mg PO QAM #90 tabs 07/12/21 tamsulosin 0.4 mg capsule (Flomax) 0.4 mg PO DAILY #90 caps 07/12/21 miscellaneous medical supply 5 ea miscellaneous QIDACHS #500 ea 07/18/21 polyethylene glycol 3350 17 gram 17 g PO DAILY #30 ea 09/15/21 oral powder packet diaper,brief,adult,disposable #60 ea 09/27/21 (Briefs, Adult-Extra Large) lactulose 10 gram/15 mL (15 mL) 10 g (15 mL) PO DAILY PRN 09/27/21 oral solution constipation #1,440 mL docusate sodium 100 mg capsule 100 mg PO BID PRN constipation 30 11/15/21 days #60 caps pads for bedsores 7 7/8 X 11 3/4 #50 ea 03/14/22 chux disposable bed liner #100 ea 06/07/22 flushable wipes #300 ea 06/07/22 betamethasone dipropionate 0.05 % 1 appl topical DAILY #45 grams 06/27/22 topical ointment promethazine 25 mg tablet 12.5 mg PO BID PRN itch #180 tabs 07/13/22 colloidal oatmeal 2 % topical 1 appl topical BID #155 grams 07/20/22 cream (Gold Scott Medicated Eczema Relief) hydrocortisone-aloe vera 1 % 1 appl topical BID #28.4 grams 07/20/22 topical cream (Cortisone with Aloe) fluticasone propionate 50 2 spray intranasal DAILY #15.8 mL 09/18/22 mcg/actuation nasal spray,suspension nystatin 100,000 unit/gram topical 1 appl topical BID #60 grams 10/30/22 powder oxycodone 5 mg tablet 10 mg PO Q6H PRN pain #240 tabs 10/30/22 hydrocolloid dressing 4 X 5 #5 ea 11/15/22 (DuoDERM CGF Adhesive Border Dressing) Allergies Allergy/AdvReac Type Severity Reaction Status Date / Time simvastatin [SIMVASTATIN] Allergy Unknown TOLD NEVER Verified 10/30/22 10:24 TO TAKE, Cramps in legs Gold shot AdvReac Unknown Itching Uncoded 10/30/22 10:24 Review of Systems Review of Systems: Yes all other systems are reviewed and are negative PMFSH Past Medical History Medical History Acute embolism and thrombosis of right femoral vein Acute thromboembolism of deep veins of lower extremity Arthritis of both knees Bacteremia Chronic arthritis Chronic kidney disease, stage 3 unspecified Chronic pain syndrome Constipation Esophageal reflux H/O gastric ulcer Morbid obesity Obstructive sleep apnea (adult) (pediatric) Other chronic pain Pain management Peripheral vascular disease Primary osteoarthritis, right shoulder Retention of urine Rheumatoid arthritis Rheumatoid arthritis Streptococcus, group b, as the cause of diseases classified elsewhere Unsteadiness on feet Weakness Surgical History H/O colonoscopy H/O esophagogastroduodenoscopy H/O rectal polypectomy History of bilateral cataract extraction Family History Family History Father CAD (coronary artery disease) Diabetes Mother Diabetes Brother Diabetes Social History Social History Household Members: None Housing: Apartment Do you presently have visiting nurse or other home services: Yes (STEWARD/STEWARDESS 3hr/week & meals on wheels) Alcohol intake: never Patient Tobacco Use Status: Never used Tobacco e-Cigarette/Vaping Use: Never Used Second Hand Smoke Exposure: No Advance Directives: No Advance Directives Information Provided: Yes service: No Current occupational status: unemployed Cognitive needs: Yes (wheel chair) Hearing needs: No Vision needs: Yes (glasses) Physical Exam ED Vital Signs: Vital Signs - 24 hr 11/17/22 20:22 11/17/22 20:29 11/18/22 01:22 Temperature 98.9 F Pulse Rate 103 H 104 H 93 Respiratory Rate 16 16 14 Blood Pressure 95/66 84/52 L 100/59 L Pulse Oximetry 95 96 98 Oxygen Delivery Method Room Air Nasal Cannula Nasal Cannula Oxygen Flow Rate 2 BMI result Body Mass Index 47.1 Appearance: Alert. Oriented X3. No acute distress. Obese Eyes: PERRLA, No Nystagmus ENT: Pharynx normal. Oral Mucosa moist Neck: Normal inspection. Neck supple. CVS: Normal heart rate and rhythm. Pulses normal. Respiratory: No respiratory distress. Equal air entry bilateral, no wheezing/rales/rhonchi Abdomen: Soft and nontender. Bowel sounds are present, no mass palpable, no CVA tenderness Skin: Skin warm and dry. Erythema of bilateral lower. Normal skin turgor. Extremities:++ lower extremity edema. Tender to touch bilateral Neuro: Oriented X 3. No motor deficit. No sensory deficit.No cerebellar signs , cranial nerves II-XII intact Medications Administered Discontinued Medications Generic Name Dose Route Start Last Admin Trade Name Freq PRN Reason Stop Dose Admin Vancomycin HCl 2,000 mg in 500 mls @ 250 mls/hr 11/17/22 21:53 11/18/22 00:54 Vancomycin/Ns IV 11/17/22 23:52 250 mls/hr ONCE ONE Administration Medical Decision Making Medical Decision Making [facility] Narrative: Patient with morbidly obese bilateral leg cellulitis with leukocytosis will admit patient for IV antibiotics treatment vancomycin was given along with Zosyn Differential Diagnosis Differential Diagnoses: The differential diagnosis associated with the presentation includes Cellulitis/UTI/bacteremia Consult Healthcare Provider Management of the patient was discussed with: Hospitalist Lab Data MDM Lab Attestation statement: I reviewed the patient's lab results. 11/17/22 22:16 11/17/22 22:16 Labs: Lab Results 11/17/22 11/17/22 11/17/22 Range/Units 22:16 22:16 22:16 WBC 29.7 H (4.8-10.8) X10*3/uL RBC 4.58 L D (4.60-5.80) X10*6/uL Hgb 13.7 L (14.0-18.0) g/dl Hct 45.7 D (42.0-52.0) % MCV 99.8 H (80.0-98.0) fL MCH 29.9 (27.0-33.0) pg MCHC 30.0 L (31.0-36.0) g/dl RDW 16.8 H (11.0-16.0) % Plt Count 264 D (160-400) X10*3/uL MPV 9.6 (9.4-12.4) fL Immature Gran % (Auto) 3.1 H (0.0-0.4) % Neut % (Auto) 89.4 H (45-73) % Lymph % (Auto) 4.1 L (20-40) % [place] % (Auto) 2.6 (2-11) % Eos % (Auto) 0.3 (0-4) % Baso % (Auto) 0.5 (0-2) % Lymph # (Auto) 1.2 (1.2-4.9) X10*3/uL [place] # (Auto) 0.8 (0.1-1.2) X10*3/uL Eos # (Auto) 0.1 (0.0-0.4) X10*3/uL Baso # (Auto) 0.2 (0.0-0.2) X10*3/uL Abs Immat Gran (auto) 0.92 H (0.00-0.03) X10*3/uL Absolute Neuts (auto) 26.6 H (2.0-8.3) x10*3/uL Absolute Nucleated RBC 0.000 (0.0-0.012) X10*3/uL Nucleated RBC % (auto) 0.0 (0.0-0.2) /100WBC Smear Tech's Comments VERIFIED PT 13.0 (11.1-13.3) SEC INR 1.1 (0.9-1.1) APTT (26.0-36.4) SEC D-Dimer High Sensitivty 411 NG/ML Sodium 139 (135-145) mmol/L Potassium 4.8 (3.3-5.1) mmol/L Chloride 106 (96-108) mmol/L Carbon Dioxide 20 L (22-29) mmol/L Anion Gap 18 (12-20) BUN 39 H (9-16) mg/dL Creatinine 1.20 (0.5-1.4) mg/dL Estim Creat Clear Calc 72.0 Estimated GFR 59 Random Glucose 139 H (60-115) mg/dL Lactic Acid (0.5-2.0) mmol/L Calcium 9.6 D (8.4-10.2) mg/dL Total Bilirubin 0.4 (0.0-1.0) mg/dL AST 15 (5-37) U/L ALT 18 (0-40) U/L Alkaline Phosphatase 117 (39-117) U/L B-Natriuretic Peptide (<100) pg/mL Total Protein 6.5 (6.5-8.0) g/dL Albumin 2.6 L (3.5-5.0) g/dL 11/17/22 11/17/22 11/17/22 Range/Units 22:16 23:22 23:22 WBC (4.8-10.8) X10*3/uL RBC (4.60-5.80) X10*6/uL Hgb (14.0-18.0) g/dl Hct (42.0-52.0) % MCV (80.0-98.0) fL MCH (27.0-33.0) pg MCHC (31.0-36.0) g/dl RDW (11.0-16.0) % Plt Count (160-400) X10*3/uL MPV (9.4-12.4) fL Immature Gran % (Auto) (0.0-0.4) % Neut % (Auto) (45-73) % Lymph % (Auto) (20-40) % [place] % (Auto) (2-11) % Eos % (Auto) (0-4) % Baso % (Auto) (0-2) % Lymph # (Auto) (1.2-4.9) X10*3/uL [place] # (Auto) (0.1-1.2) X10*3/uL Eos # (Auto) (0.0-0.4) X10*3/uL Baso # (Auto) (0.0-0.2) X10*3/uL Abs Immat Gran (auto) (0.00-0.03) X10*3/uL Absolute Neuts (auto) (2.0-8.3) x10*3/uL Absolute Nucleated RBC (0.0-0.012) X10*3/uL Nucleated RBC % (auto) (0.0-0.2) /100WBC Smear Tech's Comments PT (11.1-13.3) SEC INR (0.9-1.1) APTT 28.5 D (26.0-36.4) SEC D-Dimer High Sensitivty NG/ML Sodium (135-145) mmol/L Potassium (3.3-5.1) mmol/L Chloride (96-108) mmol/L Carbon Dioxide (22-29) mmol/L Anion Gap (12-20) BUN (9-16) mg/dL Creatinine (0.5-1.4) mg/dL Estim Creat Clear Calc Estimated GFR Random Glucose (60-115) mg/dL Lactic Acid 1.9 (0.5-2.0) mmol/L Calcium (8.4-10.2) mg/dL Total Bilirubin (0.0-1.0) mg/dL AST (5-37) U/L ALT (0-40) U/L Alkaline Phosphatase (39-117) U/L B-Natriuretic Peptide 42 (<100) pg/mL Total Protein (6.5-8.0) g/dL Albumin (3.5-5.0) g/dL Discharge Plan Discharge Clinical Impression: Cellulitis Patient Disposition: Admitted As Inpatient
[2022-11-17 22:24] LABS: Basophils Absolute Auto 0.2 X10*3/uL (0.0-0.2); Basophils Percent Auto 0.5 % (0-2); Eosinophils Absolute Auto 0.1 X10*3/uL (0.0-0.4); Eosinophils Percent Auto 0.3 % (0-4); Hematocrit 45.7 % (42.0-52.0); Hemoglobin 13.7 g/dl (14.0-18.0); Imm Gran Abs Auto 0.92 X10*3/uL (0.00-0.03); Imm Gran Pct Auto 3.1 % (0.0-0.4); Lymphocytes Absolute Auto 1.2 X10*3/uL (1.2-4.9); Lymphocytes Percent Auto 4.1 % (20-40); MANUAL DIFF FLAG SCAN; Mean Corpuscular Hemoglobin 29.9 pg (27.0-33.0); Mean Corpuscular Volume 99.8 fL (80.0-98.0); Mean Platelet Volume 9.6 fL (9.4-12.4); Monocytes Absolute Auto 0.8 X10*3/uL (0.1-1.2); Monocytes Percent Auto 2.6 % (2-11); Neutrophils Absolute Auto 26.6 x10*3/uL (2.0-8.3); Neutrophils Percent Auto 89.4 % (45-73); Platelet Count 264 X10*3/uL (160-400); Red Blood Count 4.58 X10*6/uL (4.60-5.80); Red Cell Distribution Width 16.8 % (11.0-16.0); SCAN SMEAR FLAG 1; White Blood Count 29.7 X10*3/uL (4.8-10.8)
[2022-11-17 22:34] LABS: INTERNATIONAL NORM RATIO 1.1 (0.9-1.1)
[2022-11-17 22:36] LABS: D Dimer High Sensitivity 411 NG/ML
[2022-11-17 22:37] LABS: Partial Thromboplastin Time 28.5 SEC (26.0-36.4)
[2022-11-17 22:47] LABS: Alanine Aminotransferase 18 U/L (0-40); Albumin Level 2.6 g/dL (3.5-5.0); Alkaline Phosphatase 117 U/L (39-117); Anion Gap 18 (12-20); Aspartate Amino Transferase 15 U/L (5-37); Bilirubin Total 0.4 mg/dL (0.0-1.0); Blood Urea Nitrogen 39 mg/dL (9-16); Calcium 9.6 mg/dL (8.4-10.2); Carbon Dioxide 20 mmol/L (22-29); Chloride 106 mmol/L (96-108); Estimated Glomerular Filt Rate 59; Glucose Random 139 mg/dL (60-115); Potassium 4.8 mmol/L (3.3-5.1); Sodium 139 mmol/L (135-145); Total Protein 6.5 g/dL (6.5-8.0)
[2022-11-17 22:50] LABS: SLIDE REVIEW VERIFIED
--- NOTE | 2022-11-17 23:19 | PC.NURSE ---
Abx delayed due to several attempts at IV insertion, provider aware.
[2022-11-17 23:38] LABS: Lactic Acid 1.9 mmol/L (0.5-2.0)
[2022-11-17 23:51] LABS: B Type Natriuretic Peptide 42 pg/mL (<100)
[2022-11-18] VITALS (9 sets, daily range): BP systolic 92–127; BP diastolic 50–72; PULSE 84–99; RESP 12–18; TEMP 36.1–37; O2SAT 89–99
[2022-11-18] MEDS: vancomycin/NS 2,000 MG/500 ML PLAST..BAG 250 MG IV (00:54)
[2022-11-18] MEDS: Piperacillin Sodium/Tazobactam 4.5 GM in 0.9 % Sodium Chloride 100 ML IV (03:37)
--- NOTE | 2022-11-18 05:46 | PC.NURSE ---
Late entry: PT A&Ox3,pt speaking in full sentences. Pt reports 10/10 all over body pain especially his BLL, pt reported difficulty swallowing, pt is bedbound at baseline, pt was placed on 2L NC by EMS, pt reports he doesn't use O2 at home, lung sounds clear, RR:16, 95% RA, pt taken off oxygen desatted to 89%, pt placed 1L NC backup to 98%. Meds given as documented, IV placed. Pt skin is dry, wheeping edema 4+ on feet, erythema on BLL, back, and skin fold, abd pads placed between skin folds, one open wound the size of a sheila on right hip, 5 small open wounds on left side of back noted. Dr. Can Notified.
--- NOTE | 2022-11-18 06:08 | PM.IMHP ---
History of Present Illness Date of Service: 11/18/22 Chief Complaint: Lower extremity infection This is a 72-year-old male with pertinent history of hypothyroidism, rheumatoid arthritis, chronic venous stasis, morbid obesity, gastroesophageal reflux disease, BPH presents to the emergency department evaluation of redness, swelling and pain of lower extremities. Patient states it started about 2 weeks prior to presentation and has been progressive. The right lower extremity has been draining purulent fluid. Patient states he does have a history of recurrent cellulitis. No dyspnea, orthopnea or PND. Denies fever or chills. Patient denies chest discomfort, palpitations, abdominal pain, changes in urinary or bowel habits. In the emergency department, patient found to be septic Review of Systems Constitutional: Constitutional: Reports fatigue and Reports malaise Cardiovascular: Cardiovascular: Reports no additional cardiovascular complaints Respiratory: Respiratory: Reports no additional respiratory complaints Gastrointestinal: Gastrointestinal: Reports no additional gastrointestinal complaints Genitourinary: Genitourinary: Reports no additional male genitourinary complaints Endocrine: Endocrine: Reports fatigue [facility] Medical History Acute embolism and thrombosis of right femoral vein Acute thromboembolism of deep veins of lower extremity Arthritis of both knees Bacteremia Chronic arthritis Chronic kidney disease, stage 3 unspecified Chronic pain syndrome Constipation Esophageal reflux H/O gastric ulcer Morbid obesity Obstructive sleep apnea (adult) (pediatric) Other chronic pain Pain management Peripheral vascular disease Primary osteoarthritis, right shoulder Retention of urine Rheumatoid arthritis Rheumatoid arthritis Streptococcus, group b, as the cause of diseases classified elsewhere Unsteadiness on feet Weakness Family History Father CAD (coronary artery disease) Diabetes Mother Diabetes Brother Diabetes Surgical History H/O colonoscopy H/O esophagogastroduodenoscopy H/O rectal polypectomy History of bilateral cataract extraction Social History Household Members: None Housing: Apartment Do you presently have visiting nurse or other home services: Yes ([employer] 3hr/week & meals on wheels) Alcohol intake: never Patient Tobacco Use Status: Never used Tobacco Smoked in Last 30 Days: No e-Cigarette/Vaping Use: Never Used Second Hand Smoke Exposure: No Use of substances other than those prescribed or required for medical reasons: No Advance Directives: No Advance Directives Information Provided: Yes service: No Current occupational status: unemployed Cognitive needs: Yes (wheel chair) Hearing needs: No Vision needs: Yes (glasses) Meds Allergies Allergy/AdvReac Type Severity Reaction Status Date / Time simvastatin [SIMVASTATIN] Allergy Unknown TOLD NEVER Verified 11/18/22 03:39 TO TAKE, Cramps in legs Gold shot AdvReac Unknown Itching Uncoded 11/18/22 03:39 Home Medications Medication Instructions Recorded Confirmed Last Taken Type omeprazole 20 mg capsule,delayed 20 mg PO DAILY 05/04/20 11/18/22 05/06/20 History release etanercept 50 mg/mL (1 mL) 50 mg subcut QWEEK 05/29/21 11/18/22 Unknown History subcutaneous syringe (Enbrel) Physical Exam Vital Signs and Narrative: Vital Signs: Last Vital Signs Temp 98.6 F 11/18/22 03:44 Pulse 88 11/18/22 03:44 Resp 12 11/18/22 03:44 BP 106/58 L 11/18/22 03:44 Pulse Ox 94 11/18/22 06:00 O2 Del Method Nasal Cannula 11/18/22 06:00 O2 Flow Rate 1 11/18/22 06:00 BMI result Body Mass Index 47.1 Middle-aged obese male lying in bed in no distress Neck supple Regular rate and rhythm, S1-S2 heard Decreased sounds at bases Abdomen soft nontender, no guarding, no rigidity Patient is awake, alert and oriented to self, place, time and person ; no focal motor deficit Extremity: Right lower extremity with erythema, warmth and tenderness, serosanguineous drainage seen ; left lower extremity with erythema swelling and warmth Skin: Erythema and maceration seen in skin folds Psych: Normal mood Results Labs 11/17/22 22:16 11/17/22 22:16 Labs: Laboratory Results - last 24 hr 11/17/22 11/17/22 11/17/22 22:16 22:16 22:16 MCV 99.8 H MCH 29.9 MCHC 30.0 L RDW 16.8 H Plt Count 264 D MPV 9.6 Immature Gran % (Auto) 3.1 H Neut % (Auto) 89.4 H Lymph % (Auto) 4.1 L [place] % (Auto) 2.6 Eos % (Auto) 0.3 Baso % (Auto) 0.5 Lymph # (Auto) 1.2 [place] # (Auto) 0.8 Eos # (Auto) 0.1 Baso # (Auto) 0.2 Abs Immat Gran (auto) 0.92 H Absolute Neuts (auto) 26.6 H Absolute Nucleated RBC 0.000 Nucleated RBC % (auto) 0.0 Smear Tech's Comments VERIFIED PT 13.0 INR 1.1 APTT D-Dimer High Sensitivty 411 Anion Gap 18 Estim Creat Clear Calc 72.0 Estimated GFR 59 Random Glucose 139 H Lactic Acid Calcium 9.6 D Total Bilirubin 0.4 AST 15 ALT 18 Alkaline Phosphatase 117 B-Natriuretic Peptide Total Protein 6.5 Albumin 2.6 L 11/17/22 11/17/22 11/17/22 22:16 23:22 23:22 MCV MCH MCHC RDW Plt Count MPV Immature Gran % (Auto) Neut % (Auto) Lymph % (Auto) [place] % (Auto) Eos % (Auto) Baso % (Auto) Lymph # (Auto) [place] # (Auto) Eos # (Auto) Baso # (Auto) Abs Immat Gran (auto) Absolute Neuts (auto) Absolute Nucleated RBC Nucleated RBC % (auto) Smear Tech's Comments PT INR APTT 28.5 D D-Dimer High Sensitivty Anion Gap Estim Creat Clear Calc Estimated GFR Random Glucose Lactic Acid 1.9 Calcium Total Bilirubin AST ALT Alkaline Phosphatase B-Natriuretic Peptide 42 Total Protein Albumin Assessment and Plan (1) Sepsis due to cellulitis: Status: Acute Plan This is a 72-year-old male with pertinent history of hypothyroidism, rheumatoid arthritis, chronic venous stasis, morbid obesity, gastroesophageal reflux disease, BPH presents to the emergency department evaluation of redness, swelling and pain of lower extremities. #. Sepsis due to purulent cellulitis. Resuscitated with IV crystalloids. Lactic acid and blood culture obtained. Initiating empiric IV vancomycin. Obtaining venous duplex of bilateral lower extremity #. Candidal dermatitis. Skin folds. Ordered nystatin #. Hypothyroidism. On Synthroid #. BPH. On Flomax #. Gastroesophageal reflux disease. On PPI Med rec pending DVT prophylaxis: Lovenox DNR/DNI. Discussed with patient at bedside Admit as inpatient and will require two night minimum hospital stay for IV antibiotics Time Spent With Patient Time: Total time managing care of this patient today ____ minutes. Quality Stroke Does the patient have a stroke diagnosis?: No VTE Prior VTE?: No VTE Risk Level:: Medical - moderate - high VTE Device Contraindication: Treatment Not Indicated VTE Drug Contraindication: N/A - Med Ordered
[2022-11-18] MEDS: Enoxaparin Sodium 40 MG/0.4 ML SYRINGE SUBCUT (06:44)
[2022-11-18] MEDS: Acetaminophen 325 MG TABLET 650 MG PO ×2 (06:45→17:34)
[2022-11-18] MEDS: 0.9 % Sodium Chloride 1,000 ML 999 ML IV (06:46)
[2022-11-18 07:23] LABS: Anion Gap 19 (12-20); Blood Urea Nitrogen 37 mg/dL (9-16); Calcium 9.4 mg/dL (8.4-10.2); Carbon Dioxide 14 mmol/L (22-29); Chloride 110 mmol/L (96-108); Creatinine Clr Calc Pharmacy 77.8; Estimated Glomerular Filt Rate > 60; Glucose Random 121 mg/dL (60-115); Potassium 5.3 mmol/L (3.3-5.1); Sodium 138 mmol/L (135-145)
--- NOTE | 2022-11-18 07:41 | PHA.PROG ---
Admission Date/Time: November 18, 2022 06:06 Indication: SKIN AND SKIN STRUCTURE Weight in k.531 kg Adjusted body weight in K.273 [place] body weight in Kg: Obesity Dosing Indication % IBW: Serum Creatinine - Last 168 Hours 11/17/22 11/18/22 22:16 06:59 Creatinine 1.20 1.11 Estimated CrCl and GFR - Last 168 Hours 11/17/22 11/18/22 22:16 06:59 Estim Creat Clear Calc 72.0 77.8 Estimated GFR 59 > 60 Vancomycin Loading Dose: 2000 MG Current Vancomycin Dosing Regimen: 1000 MG Q12H Vancomycin Monitoring using AUC goal of 400 - 600 range with trough as surrogate marker: AUC 453, TROUGH 15.6 Date and Time for next Vancomycin Level to be drawn: 11/19 @1100 Pharmacist Comments on Vancomycin Plan: - PT IS 72, GOING WITH Q12H DOSING AND THE NON OBESE MODEL - PLEASE CHANGE TO OBESE MODEL AFTER FIRST TROUGH Vancomycin dosing will take advantage of [employer] as a clinical decision support tool that uses Bayesian modeling to calculate individual patient's pharmacokinetic parameters and forecast the patient's drug concentration time course with the target goal AUC 24 range of 400 - 600 mg/L/hr.
--- NOTE | 2022-11-18 07:42 | PHA.MEDREC ---
Pharmacy Consult ? Medication Reconciliation Pharmacy has completed the medication reconciliation. Done overnight and checked in am
--- NOTE | 2022-11-18 07:58 | PC.NURSE ---
cardiology at bedside to complete ECHO
[2022-11-18] MEDS: Sodium Zirconium Cyclosilicate 5 GM POWD.PACK PO (09:07)
[2022-11-18] MEDS: Levothyroxine Sodium 75 MCG TABLET 37.5 MCG PO (09:27)
[2022-11-18] MEDS: Furosemide 20 MG TABLET PO (09:28)
[2022-11-18] MEDS: oxyCODONE HCl Immed Release 5 MG TABLET 10 MG PO (09:28)
[2022-11-18] MEDS: Folic Acid 1 MG TABLET PO (09:28)
[2022-11-18] MEDS: Tamsulosin HCL 0.4 MG CAPSULE PO (09:28)
[2022-11-18 10:25] LABS: INTERNATIONAL NORM RATIO 1.1 (0.9-1.1); Prothrombin Time 13.9 SEC (11.1-13.3)
--- NOTE | 2022-11-18 10:36 | MHC.CM.PN ---
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
--- NOTE | 2022-11-18 10:36 | PM.EVENT ---
Event Note Date of Service: 11/18/22 Event Note: Day hospitalist update S: c/o bilateral leg swelling, redness, and pain; RLE weeping no fever O: Temp Pulse Resp BP Pulse Ox O2 Del Method O2 Flow Rate 97.7 F 86 15 112/71 96 Nasal Cannula 1 11/18/22 06:06 11/18/22 09:07 11/18/22 09:07 11/18/22 09:07 11/18/22 09:07 11/18/22 09:07 11/18/22 09:07 Gen: in no acute distress HEENT: sclera anicteric, moist mucus membranes Neck: supple Lungs: clear to auscultation bilaterally Heart: regular rate and rhythm, no murmurs Abd: soft, non-tender, non-distended, obese Ext: 4+ pitting BLE edema with extensive erythema and warmth with induration; weeping edema from RLE Skin: warm/well-perfused Neuro: alert and oriented x3, no focal findings Psych: appropriate affect Labs: CRP 39.8, WBC 29.7 with 89% PMNs, K 5.3, Cr 1.11 BLE Duplex NONDIAGNOSTIC STUDY, difficulty by the splicing machine operator automatic. The veins could not be visualized, CANNOT RULE OUT THROMBOSIS. Recommendation: consider anticoagulation and follow-up repeat exam in 24 to 48 hours. A/P: d1 72yo M with hypothyroidism, RA, chronic veous stasis, morbid obesity, GERD, BPH admitted with sepsis due to bilateral leg cellulitis sepsis due to cellulitis of BLE - continue vanco d1, follow BCx - lactate normal candidal intertrigo - nystatin BLE swelling - cannot rule out DVT and pt has hx of DVT; will give therapeutic enoxaparin and recheck duplex in 24-48h - BNP normal. check UA + urine pr/Cr to r/o nephrotic syndrome. ultimately likely due to chronic venous stasis - change furosemide PO to IV morbid obesity - diet/exercise counseling - screen for DM2 with A1c hypothyroidism - continue LT4 BPH - continue tamsulosin VTE ppx - enoxaparin dispo - TBD In my clinical judgment, the patient requires continued hospitalization for the following reasons: IV ABX Time Spent With Patient Time: Total time managing care of this patient today ____ minutes.
--- NOTE | 2022-11-18 11:04 | PC.NURSE ---
call palced to pharmacy for medications not available in pyxis
[2022-11-18 11:08] LABS: Estimated Average Glucose 97 mg/dL
[2022-11-18] MEDS: Enoxaparin Sodium 150 MG/ML SYRINGE 135 MG SUBCUT ×2 (11:14→20:12)
[2022-11-18] MEDS: Nystatin Ointment 15 GM TUBE 1 APPL TOPICAL ×2 (11:14→20:13)
[2022-11-18] MEDS: vancomycin HCL 1,000 MG in 0.9 % Sodium Chloride 250 ML 270 MG IV ×2 (13:34→23:42)
[2022-11-18] MEDS: 0.9 % Sodium Chloride Flush 3 ML SYRINGE IVFLUSH ×2 (16:14→20:12)
[2022-11-18] MEDS: Ferrous Sulfate 324 MG TABLET.DR PO (17:34)
[2022-11-18] MEDS: Furosemide 20 MG/2 ML VIAL IVPUSH (17:34)
[2022-11-19 03:49] VITALS: BP 121/58; PULSE 93; RESP 16; TEMP 36.6; O2SAT 99
[2022-11-19] MEDS: Levothyroxine Sodium 75 MCG TABLET 37.5 MCG PO (05:39)
[2022-11-19 05:57] LABS: Basophils Percent Auto 0.5 % (0-2); Eosinophils Percent Auto 1.8 % (0-4); NRBC Pct Auto 0.1 /100WBC (0.0-0.2); PLT CLUMP 1; SCAN SMEAR FLAG 1
[2022-11-19 05:59] LABS: Basophils Absolute Auto 0.1 X10*3/uL (0.0-0.2); Eosinophils Absolute Auto 0.4 X10*3/uL (0.0-0.4); Hematocrit 37.1 % (42.0-52.0); Hemoglobin 11.4 g/dl (14.0-18.0); Imm Gran Abs Auto 0.98 X10*3/uL (0.00-0.03); Imm Gran Pct Auto 4.4 % (0.0-0.4); Lymphocytes Absolute Auto 1.2 X10*3/uL (1.2-4.9); Lymphocytes Percent Auto 5.5 % (20-40); Mean Corpuscular HGB Conc 30.7 g/dl (31.0-36.0); Mean Corpuscular Hemoglobin 30.5 pg (27.0-33.0); Mean Corpuscular Volume 99.2 fL (80.0-98.0); Mean Platelet Volume 10.9 fL (9.4-12.4); Monocytes Absolute Auto 0.7 X10*3/uL (0.1-1.2); Monocytes Percent Auto 2.9 % (2-11); Neutrophils Absolute Auto 19.1 x10*3/uL (2.0-8.3); Neutrophils Percent Auto 84.9 % (45-73); Red Blood Count 3.74 X10*6/uL (4.60-5.80); Red Cell Distribution Width 16.2 % (11.0-16.0)
[2022-11-19 06:03] LABS: MANUAL DIFF FLAG NO; Platelet Count 176 X10*3/uL (160-400); White Blood Count 22.5 X10*3/uL (4.8-10.8)
[2022-11-19 06:07] LABS: Creatinine Clr Calc Pharmacy 77.1; Estimated Glomerular Filt Rate > 60
[2022-11-19 06:16] LABS: Anion Gap 16 (12-20); Blood Urea Nitrogen 38 mg/dL (9-16); Calcium 8.8 mg/dL (8.4-10.2); Carbon Dioxide 17 mmol/L (22-29); Chloride 109 mmol/L (96-108); Creatinine Clr Calc Pharmacy 75.8; Estimated Glomerular Filt Rate > 60; Glucose Random 97 mg/dL (60-115); Sodium 138 mmol/L (135-145)
[2022-11-19 07:37] VITALS: BP 102/72; PULSE 97; RESP 16; TEMP 36; O2SAT 99
[2022-11-19] MEDS: Nystatin Ointment 15 GM TUBE 1 APPL TOPICAL (07:58)
[2022-11-19] MEDS: 0.9 % Sodium Chloride Flush 3 ML SYRINGE IVFLUSH ×3 (07:58→20:38)
[2022-11-19] MEDS: Folic Acid 1 MG TABLET PO (08:05)
[2022-11-19] MEDS: oxyCODONE HCl Immed Release 5 MG TABLET 10 MG PO ×2 (08:05→17:16)
[2022-11-19] MEDS: Tamsulosin HCL 0.4 MG CAPSULE PO (08:06)
[2022-11-19] MEDS: Furosemide 20 MG/2 ML VIAL IVPUSH ×2 (08:06→17:14)
[2022-11-19] MEDS: Ferrous Sulfate 324 MG TABLET.DR PO ×2 (08:06→17:14)
[2022-11-19] MEDS: Omeprazole 20 MG CAPSULE.DR PO (08:06)
[2022-11-19] MEDS: Enoxaparin Sodium 150 MG/ML SYRINGE 135 MG SUBCUT ×2 (08:06→20:38)
[2022-11-19] MEDS: Lactulose 20 GM/30 ML SOLUTION 10 GM PO (09:10)
[2022-11-19] MEDS: polyethylene glycoL 3350 17 GM POWD.PACK PO (09:10)
--- NOTE | 2022-11-19 12:00 | HO.PM.IMPN ---
Subjective Subjective Date of Service: 11/19/22 Interval History: being followed for bilateral lower extremity cellulitis, feels cold and constipated,requesting for stool softeners, denies fever, no chills, no cough, no shortness of breath, no urinary symptoms no other acute complaints tolerated diet no nausea, no vomiting, no abdominal pain. Review of Systems All other system reviewed and negative. Physical Exam Vital Signs: Vital Signs: Last Vital Signs Temp 96.8 F 11/19/22 07:37 Pulse 97 11/19/22 07:37 Resp 16 11/19/22 07:37 BP 102/72 11/19/22 07:37 Pulse Ox 99 11/19/22 07:37 O2 Del Method Nasal Cannula 11/19/22 07:37 O2 Flow Rate 2 11/19/22 07:37 BMI result Body Mass Index 47.1 Const: Other: General resting in bed, no distress Neck is supple no JVD. CVS? regular rate rhythm, Respiratory lungs clear to auscultation, no respiratory distress Gastrointestinal abdomen obese, soft, nontender, bowel sounds audible, no rigidity. Extremities bilateral lower extremity redness,warmth, tenderness and edema , no open wounds. Neuro nonfocal, speech clear. psych appropriate affect Objective Data Active Medications Acetaminophen (Acetaminophen 325 Mg Tablet) 650 mg PO Q6H PRN PRN Reason: Pain, Mild (Pain Scale 1-3) Last Admin: 11/18/22 17:34 Dose: 650 mg Documented By: GINNY Docusate Sodium (Docusate Sodium 100 Mg Capsule) 100 mg PO BID PRN PRN Reason: constipation Enoxaparin Sodium (Enoxaparin Sodium 150 Mg/Ml Syringe) 135 mg 1 mg/kg (135 mg) SUBCUT Q12H [facility] Last Admin: 11/19/22 08:06 Dose: 135 mg Documented By: KRYSTLE Ferrous Sulfate (Ferrous Sulfate 324 Mg Tablet.) 324 mg PO BIDWM [facility] Last Admin: 11/19/22 08:06 Dose: 324 mg Documented By: KRYSTLE Fluticasone Propionate (Fluticasone Propionate Nasal 16 Gm [place]) 2 spray NOSTRIL-B DAILY [facility] Last Admin: 11/19/22 08:08 Dose: Not Given Documented By: KRYSTLE Non-Admin Reason: not avail Folic Acid (Folic Acid 1 Mg Tablet) 1 mg PO DAILY [facility] Last Admin: 11/19/22 08:05 Dose: 1 mg Documented By: KRYSTLE Furosemide (Furosemide 20 Mg/2 Ml Vial) 20 mg IVPUSH BID@0900,1800 [facility]; Protocol Last Admin: 11/19/22 08:06 Dose: 20 mg Documented By: KRYSTLE Vancomycin HCl 1,000 mg/ (Sodium Chloride) 270 mls @ 270 mls/hr IV Q12H [facility] Last Infusion: 11/19/22 00:55 Dose: 0 mls/hr Documented By: JOVI Lactulose (Lactulose 20 Gm/30 Ml Solution) 10 gm PO DAILY PRN PRN Reason: constipation Last Admin: 11/19/22 09:10 Dose: 10 gm Documented By: ANGELINA Levothyroxine Sodium (Levothyroxine Sodium 75 Mcg Tablet) 37.5 mcg PO DAILY@0600 [facility] Last Admin: 11/19/22 05:39 Dose: 37.5 mcg Documented By: JOVI Melatonin (Melatonin 3 Mg Tablet) 6 mg PO BEDTIME PRN PRN Reason: Insomnia Non-Formulary Medication (Naloxegol [Movantik]) 12.5 mg PO DAILY [facility] Nystatin (Nystatin Ointment 15 Gm Tube) 1 appl TOPICAL BID [facility]; Protocol Last Admin: 11/19/22 07:58 Dose: 1 appl Documented By: KRYSTLE Omeprazole (Omeprazole 20 Mg Capsule.Dr) 20 mg PO DAILY@0630 [facility] Last Admin: 11/19/22 08:06 Dose: 20 mg Documented By: KRYSTLE Ondansetron HCl (Ondansetron Hcl 4 Mg/2 Ml Vial) 4 mg IVPUSH Q8H PRN PRN Reason: Nausea and Vomiting Oxycodone HCl (Oxycodone Hcl Immed Release 5 Mg Tablet) 10 mg PO Q6H PRN PRN Reason: pain severe Last Admin: 11/19/22 08:05 Dose: 10 mg Documented By: KRYSTLE Pharmacy Consult (Consult Rx Vancomycin Dosing) 1 each MISCELLANE DAILY PRN PRN Reason: Consult order Pharmacy Consult (Consult Rx Perform Med Rec) 1 each MISCELLANE ONCE PRN PRN Reason: Consult order Polyethylene Glycol (Polyethylene Glycol 3350 17 Gm Powd.Pack) 17 gm PO DAILY [facility] Last Admin: 11/19/22 09:10 Dose: 17 gm Documented By: ANGELINA Promethazine HCl (Promethazine Hcl 25 Mg Tablet) 12.5 mg PO BID PRN PRN Reason: itch Sodium Chloride (0.9 % Sodium Chloride Flush 3 Ml Syringe) 3 ml IVFLUSH QSHIFT [facility] Last Admin: 11/19/22 07:58 Dose: 3 ml Documented By: KRYSTLE Tamsulosin HCl (Tamsulosin Hcl 0.4 Mg Capsule) 0.4 mg PO DAILY [facility] Last Admin: 11/19/22 08:06 Dose: 0.4 mg Documented By: KRYSTLE Labs 11/19/22 05:43 11/19/22 05:43 Labs: Laboratory Results - last 24 hr 11/19/22 11/19/22 11/19/22 05:43 05:43 05:43 MCV 99.2 H MCH 30.5 MCHC 30.7 L RDW 16.2 H Plt Count 176 D MPV 10.9 Immature Gran % (Auto) 4.4 H Neut % (Auto) 84.9 H Lymph % (Auto) 5.5 L [place] % (Auto) 2.9 Eos % (Auto) 1.8 Baso % (Auto) 0.5 Lymph # (Auto) 1.2 [place] # (Auto) 0.7 Eos # (Auto) 0.4 Baso # (Auto) 0.1 Abs Immat Gran (auto) 0.98 H Absolute Neuts (auto) 19.1 H Absolute Nucleated RBC 0.020 H Nucleated RBC % (auto) 0.1 Anion Gap 16 Estim Creat Clear Calc 77.1 75.8 Estimated GFR > 60 > 60 Random Glucose 97 Calcium 8.8 D Microbiology Microbiology Results: Microbiology 11/17/22 23:22 Blood Culture - Preliminary Blood - Venous No growth after 24 hours. 11/17/22 22:16 Blood Culture - Preliminary Blood - Venous No growth after 24 hours. Assessment and Plan (1) Sepsis due to cellulitis: Status: Acute (2) Morbid obesity: Status: Acute (3) Hypothyroidism: Status: Acute Plan 72yo M with hypothyroidism, RA, chronic veous stasis, morbid obesity, GERD, BPH, admitted with sepsis due to bilateral leg cellulitis. sepsis due to cellulitis of BLE - WBC trending down, continue vanco d2, BCx 2, no growth times 24 hours. - lactate normal, CRP 39.80 candidal intertrigo - will change to nystatin powder BLE swelling - cannot rule out DVT and pt has hx of DVT; continue therapeutic enoxaparin and recheck duplex tomorrow - BNP normal.? negative urine protein, swelling likely due to chronic venous stasis and low albumin - on furosemide IV, keep leg elevated morbid obesity - diet/exercise counseling, hemoglobin A1c 5 average blood sugar 97 hypothyroidism - continue LT4, check TSH BPH - continue tamsulosin Constipation continues stool softeners follow clinical course VTE ppx - enoxaparin therapeutic dose dispo - TBD In my clinical judgment, the patient requires continued hospitalization for the following reasons: IV ABX Time Spent With Patient Time: Total time managing care of this patient today ____ minutes. Quality Stroke Does the patient have a stroke diagnosis?: No VTE Prior VTE?: No VTE Risk Level:: Medical - moderate - high VTE Device Contraindication: Treatment Not Indicated VTE Drug Contraindication: N/A - Med Ordered
[2022-11-19 12:05] LABS: Appearance Urine Clear; Color Urine Yellow; Glucose Urine UA Negative (Negative); Leukocyte Esterase Urine Negative (Negative); Nitrite Urine Negative (Negative); PH 5.5 (5.0-9.0); Urine Blood Negative (Negative); Urine Ketones Negative (Negative); Urine Protein Negative (Neg-Trace)
[2022-11-19 12:08] LABS: Vancomycin Random 25.9 mcg/mL (15-20)
[2022-11-19 12:10] LABS: Bacteria Urine None Seen (None Seen); RBC Urine 0-2 /HPF (0-2); Squamous Epithelial Cell Urine 0-2 /HPF (0-2); WBC Urine 0-5 /HPF (0-5)
--- NOTE | 2022-11-19 12:39 | HE.PHANOTE ---
Re: vanco dosing SCr only slightly changed at 1.14 today. Level came back high at 25.9. Holding dose and will recheck level at 1800 to allow for decrease in auc/trough.
[2022-11-19 12:42] LABS: Creatinine Urine 47.29 mg/dL; Total Protein Urine Random 11 mg/dL (<12)
[2022-11-19] MEDS: Nystatin Powder 15 GM BOTTLE 1 APPL TOPICAL ×2 (15:24→20:38)
--- NOTE | 2022-11-19 15:50 | MHC.CM.PN ---
PT NOT YET CLEARED FOR DC, RECEIVING IV ABX DCP: RETURN HOME AND RESUME [employer] VIA BLS
[2022-11-19 16:00] VITALS: BP 104/56; PULSE 99; RESP 18; TEMP 35.6; O2SAT 98
[2022-11-19 18:37] LABS: Vancomycin Random 26.8 mcg/mL (15-20)
--- NOTE | 2022-11-19 18:37 | PC.NURSE ---
critical vanco trough 26.8 received from lab. Pharmacy notified
--- NOTE | 2022-11-19 18:50 | HE.PHANOTE ---
RE: magnolia Random on 11/19 came back at 26.8 mg/L; holding dose until tomorrow morning. Random to be drawn 11/20 @0700; pending results there is an order pending for 1000mg Q24H with predicted AUC of 463 mg/L, trough of 14
[2022-11-19 20:00] VITALS: BP 96/54; PULSE 98; RESP 17; TEMP 36.4; O2SAT 97
[2022-11-19] MEDS: Acetaminophen 325 MG TABLET 650 MG PO (20:41)
[2022-11-20 03:51] VITALS: BP 119/58; PULSE 100; RESP 14; TEMP 36.4; O2SAT 97
[2022-11-20] MEDS: Omeprazole 20 MG CAPSULE.DR PO (05:25)
[2022-11-20] MEDS: Levothyroxine Sodium 75 MCG TABLET 37.5 MCG PO (05:25)
[2022-11-20] MEDS: oxyCODONE HCl Immed Release 5 MG TABLET 10 MG PO ×2 (05:25→12:33)
[2022-11-20 07:20] VITALS: BP 104/57; PULSE 98; RESP 16; TEMP 36.6; O2SAT 98
[2022-11-20] MEDS: Furosemide 20 MG/2 ML VIAL IVPUSH ×2 (08:25→17:11)
[2022-11-20] MEDS: Nystatin Powder 15 GM BOTTLE 1 APPL TOPICAL ×2 (08:25→21:03)
[2022-11-20] MEDS: Folic Acid 1 MG TABLET PO (08:25)
[2022-11-20] MEDS: Ferrous Sulfate 324 MG TABLET.DR PO ×2 (08:25→17:11)
[2022-11-20] MEDS: Tamsulosin HCL 0.4 MG CAPSULE PO (08:25)
[2022-11-20] MEDS: 0.9 % Sodium Chloride Flush 3 ML SYRINGE IVFLUSH ×3 (08:26→21:03)
[2022-11-20 08:32] LABS: Hematocrit 37.2 % (42.0-52.0); Hemoglobin 11.7 g/dl (14.0-18.0); Mean Corpuscular HGB Conc 31.5 g/dl (31.0-36.0); Mean Corpuscular Hemoglobin 29.8 pg (27.0-33.0); Mean Corpuscular Volume 94.7 fL (80.0-98.0); Mean Platelet Volume 10.2 fL (9.4-12.4); Platelet Count 246 X10*3/uL (160-400); Red Blood Count 3.93 X10*6/uL (4.60-5.80); Red Cell Distribution Width 16.3 % (11.0-16.0); White Blood Count 14.7 X10*3/uL (4.8-10.8)
[2022-11-20 08:50] LABS: Vancomycin Trough 19.8 mcg/mL (10.0-20.0)
--- NOTE | 2022-11-20 09:05 | HE.PHANOTE ---
Re: vanco dosing Patient has had several high levels (25.9 and 26.8 on 11/19 and 19.8 on 11/20). Due to that response to only 3 doses decided to go to 1250 q48h dosing. Will check level again before dose on 11/22.
[2022-11-20 09:23] LABS: Anion Gap 13 (12-20); Blood Urea Nitrogen 35 mg/dL (9-16); Carbon Dioxide 23 mmol/L (22-29); Chloride 109 mmol/L (96-108); Estimated Glomerular Filt Rate > 60; Glucose Random 99 mg/dL (60-115); Potassium 3.9 mmol/L (3.3-5.1); Sodium 141 mmol/L (135-145); Thyroid Stimulating Hormone 5.75 uIU/mL (0.32-4.0)
[2022-11-20] MEDS: Enoxaparin Sodium 150 MG/ML SYRINGE 135 MG SUBCUT ×2 (10:36→21:02)
[2022-11-20 15:31] VITALS: BP 90/50; PULSE 99; RESP 19; TEMP 36.2; O2SAT 96
--- NOTE | 2022-11-20 16:08 | HO.PM.IMPN ---
Subjective Subjective Date of Service: 11/20/22 Interval History: resting comfortably in bed, denies fever, no chills tolerating diet no nausea, no vomiting, no abdominal pain, feels both leg swelling is improving denies pain. Review of Systems all other system reviewed and negative. Physical Exam Vital Signs: Vital Signs: Last Vital Signs Temp 97.1 F 11/20/22 15:31 Pulse 99 11/20/22 15:31 Resp 19 11/20/22 15:31 BP 90/50 L 11/20/22 15:31 Pulse Ox 96 11/20/22 15:31 O2 Del Method Nasal Cannula 11/20/22 15:31 O2 Flow Rate 2 11/20/22 15:31 BMI result Body Mass Index 47.1 Const: Other: General resting in bed, no distress Neck supple no JVD. CVS? regular rate rhythm, Respiratory lungs clear to auscultation, no respiratory distress Gastrointestinal abdomen obese, soft, nontender, bowel sounds audible, no rigidity. Extremities bilateral lower extremity redness,warmth, tenderness and significant swelling ,serous drainage left leg. Neuro non focal, speech clear. psych appropriate affect Objective Data Active Medications Acetaminophen (Acetaminophen 325 Mg Tablet) 650 mg PO Q6H PRN PRN Reason: Pain, Mild (Pain Scale 1-3) Last Admin: 11/19/22 20:41 Dose: 650 mg Documented By: JOVI Docusate Sodium (Docusate Sodium 100 Mg Capsule) 100 mg PO BID PRN PRN Reason: constipation Enoxaparin Sodium (Enoxaparin Sodium 150 Mg/Ml Syringe) 135 mg 1 mg/kg (135 mg) SUBCUT Q12H [facility] Last Admin: 11/20/22 10:36 Dose: 135 mg Documented By: BRITTA Ferrous Sulfate (Ferrous Sulfate 324 Mg Tablet.) 324 mg PO BIDWM [facility] Last Admin: 11/20/22 08:25 Dose: 324 mg Documented By: BRITTA Fluticasone Propionate (Fluticasone Propionate Nasal 16 Gm [place]) 2 spray NOSTRIL-B DAILY [facility] Last Admin: 11/20/22 10:39 Dose: Not Given Documented By: BRITTA Non-Admin Reason: Med Not Available Folic Acid (Folic Acid 1 Mg Tablet) 1 mg PO DAILY [facility] Last Admin: 11/20/22 08:25 Dose: 1 mg Documented By: BRITTA Furosemide (Furosemide 20 Mg/2 Ml Vial) 20 mg IVPUSH BID@0900,1800 [facility]; Protocol Last Admin: 11/20/22 08:25 Dose: 20 mg Documented By: BRITTA Vancomycin HCl 1,250 mg/ (Sodium Chloride) 250 mls @ 166.667 mls/hr IV Q48H [facility] Lactulose (Lactulose 20 Gm/30 Ml Solution) 10 gm PO DAILY PRN PRN Reason: constipation Last Admin: 11/19/22 09:10 Dose: 10 gm Documented By: ANGELINA Levothyroxine Sodium (Levothyroxine Sodium 75 Mcg Tablet) 37.5 mcg PO DAILY@0600 [facility] Last Admin: 11/20/22 05:25 Dose: 37.5 mcg Documented By: JOVI Melatonin (Melatonin 3 Mg Tablet) 6 mg PO BEDTIME PRN PRN Reason: Insomnia Non-Formulary Medication (Naloxegol [Movantik]) 12.5 mg PO DAILY [facility] Nystatin (Nystatin Powder 15 Gm Bottle) 1 appl TOPICAL BID [facility]; Protocol Last Admin: 11/20/22 08:25 Dose: 1 appl Documented By: BRITTA Omeprazole (Omeprazole 20 Mg Capsule.) 20 mg PO DAILY@0630 [facility] Last Admin: 11/20/22 05:25 Dose: 20 mg Documented By: JOVI Ondansetron HCl (Ondansetron Hcl 4 Mg/2 Ml Vial) 4 mg IVPUSH Q8H PRN PRN Reason: Nausea and Vomiting Oxycodone HCl (Oxycodone Hcl Immed Release 5 Mg Tablet) 10 mg PO Q6H PRN PRN Reason: pain severe Last Admin: 11/20/22 12:33 Dose: 10 mg Documented By: ANGELINA Pharmacy Consult (Consult Rx Vancomycin Dosing) 1 each MISCELLANE DAILY PRN PRN Reason: Consult order Pharmacy Consult (Consult Rx Perform Med Rec) 1 each MISCELLANE ONCE PRN PRN Reason: Consult order Polyethylene Glycol (Polyethylene Glycol 3350 17 Gm Powd.Pack) 17 gm PO DAILY [facility] Last Admin: 11/20/22 08:27 Dose: Not Given Documented By: BRITTA Non-Admin Reason: Patient Refused Promethazine HCl (Promethazine Hcl 25 Mg Tablet) 12.5 mg PO BID PRN PRN Reason: itch Sodium Chloride (0.9 % Sodium Chloride Flush 3 Ml Syringe) 3 ml IVFLUSH QSHIFT [facility] Last Admin: 11/20/22 08:26 Dose: 3 ml Documented By: BRITTA Tamsulosin HCl (Tamsulosin Hcl 0.4 Mg Capsule) 0.4 mg PO DAILY [facility] Last Admin: 11/20/22 08:25 Dose: 0.4 mg Documented By: BRITTA Labs 11/20/22 07:59 11/20/22 07:59 Labs: Laboratory Results - last 24 hr 11/19/22 11/20/22 11/20/22 18:08 07:59 07:59 MCV MCH MCHC RDW Plt Count MPV Absolute Nucleated RBC Nucleated RBC % (auto) Anion Gap 13 Estim Creat Clear Calc 90.0 Estimated GFR > 60 Random Glucose 99 Calcium 9.0 TSH 5.75 H Vancomycin Trough 19.8 Random Vancomycin 26.8 H* 11/20/22 07:59 MCV 94.7 MCH 29.8 MCHC 31.5 RDW 16.3 H Plt Count 246 D MPV 10.2 Absolute Nucleated RBC 0.000 Nucleated RBC % (auto) 0.0 Anion Gap Estim Creat Clear Calc Estimated GFR Random Glucose Calcium TSH Vancomycin Trough Random Vancomycin Microbiology Microbiology Results: Microbiology 11/17/22 23:22 Blood Culture - Preliminary Blood - Venous No growth after 48 hours. 11/17/22 22:16 Blood Culture - Preliminary Blood - Venous No growth after 48 hours. Assessment and Plan (1) Sepsis due to cellulitis: Status: Acute (2) Morbid obesity: Status: Acute (3) Hypothyroidism: Status: Acute Plan 72yo M with hypothyroidism, RA, chronic veous stasis, morbid obesity, GERD, BPH, admitted with sepsis due to bilateral leg cellulitis. sepsis due to cellulitis of BLE - WBC trending down, continue vanco d2, BCx 2, no growth times 24 hours. - lactate normal, CRP 39.80 - follow clinical course candidal intertrigo - will change to nystatin powder BLE swelling - repeat duplex study showed bilateral DVT left greater than right continue therapeutic enoxaparin - BNP normal.? negative urine protein, - will dc furosemide IV after today, keep leg elevated. morbid obesity - diet/exercise counseling, hemoglobin A1c 5 average blood sugar 97 hypothyroidism - continue LT4, TSH 5.75,will increase dose of synthroid. BPH - continue tamsulosin Constipation resolved ,cont. stool softeners, follow clinical course. VTE ppx - enoxaparin therapeutic dose dispo - TBD In my clinical judgment, the patient requires continued hospitalization for the following reasons: IV ABX Time Spent With Patient Time: Total time managing care of this patient today ____ minutes. Quality Stroke Does the patient have a stroke diagnosis?: No VTE Prior VTE?: No VTE Risk Level:: Medical - moderate - high VTE Device Contraindication: Treatment Not Indicated VTE Drug Contraindication: N/A - Med Ordered
[2022-11-20] MEDS: vancomycin HCL 1,250 MG in 0.9 % Sodium Chloride 250 ML 166.67 MG IV (17:11)
[2022-11-20 19:19] VITALS: BP 99/60; PULSE 95; RESP 16; TEMP 35.7; O2SAT 97
[2022-11-20 19:24] VITALS: O2SAT 97
[2022-11-20 20:00] VITALS: BP 122/84; PULSE 80; RESP 16; TEMP 37; O2SAT 96
[2022-11-21 03:26] VITALS: BP 107/62; PULSE 101; RESP 16; TEMP 36.2; O2SAT 97
[2022-11-21 05:35] LABS: Hematocrit 38.8 % (42.0-52.0); Hemoglobin 12.1 g/dl (14.0-18.0); Mean Corpuscular HGB Conc 31.2 g/dl (31.0-36.0); Mean Corpuscular Hemoglobin 29.4 pg (27.0-33.0); Mean Corpuscular Volume 94.4 fL (80.0-98.0); Mean Platelet Volume 9.6 fL (9.4-12.4); NRBC Pct Auto 0.1 /100WBC (0.0-0.2); Platelet Count 262 X10*3/uL (160-400); Red Blood Count 4.11 X10*6/uL (4.60-5.80); Red Cell Distribution Width 16.4 % (11.0-16.0); White Blood Count 13.5 X10*3/uL (4.8-10.8)
[2022-11-21] MEDS: Levothyroxine Sodium 50 MCG TABLET PO (05:37)
[2022-11-21] MEDS: Omeprazole 20 MG CAPSULE.DR PO (05:37)
[2022-11-21 05:50] LABS: Creatinine Clr Calc Pharmacy 82.3; Estimated Glomerular Filt Rate > 60
--- NOTE | 2022-11-21 07:19 | P.CDIM_ITS ---
PROVIDER RESPONSE TEXT: To clarify, the appropriate diagnosis supported by the clinical indicators: Hyperkalemia, resolved QUERY TEXT: PHYSICIAN'S DOCUMENTATION REQUEST Date of Query: 11/20/2022 08:44 AM EDT Patient Name: Rich Nance Admit Date: 11/18/2022 Dear Harsha Cotter, A review of the medical record indicates additional documentation may be needed. Please review below and update the documentation accordingly. Clinical Indicators: LAB FINDINGS: potassium 5.3 H 4.0 Based on the above, is there a diagnosis that correlates with these lab findings: Hyperkalemia, resolved Labs indicate a diagnosis of (please specify) please specify Other (explain)Clinically unable to determine (explain)Thank you, Juana Treadwell, CCS, CDIS Use of terms such as suspected, likely, concern for, or probable (associated with a specific diagnosi s that is being evaluated, monitored, or treated as if it exists) are acceptable and can be coded in the inpatient se tting, when documented at the time of discharge. Please use your independent medical judgment in providing your response. THIS QUERY IS PART OF THE PERMANENT MEDICAL RECORD
[2022-11-21 07:21] VITALS: BP 125/62; PULSE 91; RESP 18; TEMP 36.5; O2SAT 99
[2022-11-21] MEDS: Furosemide 20 MG/2 ML VIAL IVPUSH (07:41)
[2022-11-21] MEDS: Nystatin Powder 15 GM BOTTLE 1 APPL TOPICAL ×2 (07:42→20:55)
[2022-11-21] MEDS: 0.9 % Sodium Chloride Flush 3 ML SYRINGE IVFLUSH ×3 (07:42→20:52)
[2022-11-21] MEDS: Folic Acid 1 MG TABLET PO (07:42)
[2022-11-21] MEDS: Tamsulosin HCL 0.4 MG CAPSULE PO (07:42)
[2022-11-21] MEDS: Ferrous Sulfate 324 MG TABLET.DR PO ×2 (07:42→17:14)
[2022-11-21] MEDS: Fluticasone Propionate Nasal 16 GM SPRAY 2 SPRAY NOSTRIL-B ×2 (10:23→12:37)
[2022-11-21] MEDS: Enoxaparin Sodium 150 MG/ML SYRINGE 135 MG SUBCUT ×2 (10:23→20:51)
--- NOTE | 2022-11-21 12:18 | MHC.CM.PN ---
PATIENT WITH DVT AND CELLULITIS. NO PLAN FOR DISCHARGE TODAY. DISCUSSION OF POSSIBLE NEED FOR SNF DURING ROUNDS. MADELEINE MONTIEL
[2022-11-21 15:24] VITALS: BP 100/67; PULSE 90; RESP 19; TEMP 36.8; O2SAT 97
[2022-11-21 15:26] VITALS: BP 88/58
--- NOTE | 2022-11-21 15:29 | P.PNIM_ITS ---
Subjective Subjective Date of Service: 11/21/22 Interval History: Being followed for bilateral lower extremity DVT in cellulitis, denies fever, no chills, overall feeling better feels swelling has improved but unable to see his legs, tolerating diet no nausea no vomiting no abdominal pain, no other acute issues overnight. Review of Systems All other system reviewed and negative. Physical Exam Vital Signs: Vital Signs: Last Vital Signs Temp 98.2 F 11/21/22 15:24 Pulse 90 11/21/22 15:24 Resp 19 11/21/22 15:24 BP 88/58 L 11/21/22 15:26 Pulse Ox 97 11/21/22 15:24 O2 Del Method Nasal Cannula 11/21/22 15:24 O2 Flow Rate 2 11/21/22 15:24 BMI result Body Mass Index 47.1 Const: Other: General resting in bed, no distress Neck? supple no JVD. CVS? regular rate rhythm, Respiratory lungs clear to auscultation, no respiratory distress Gastrointestinal abdomen obese, soft, nontender, bowel sounds audible, no rigidity. Extremities bilateral lower extremity redness,warmth, tenderness and swelling improving, less serous drainage left leg. Neuro non focal, speech clear. psych appropriate affect Objective Data Active Medications Acetaminophen (Acetaminophen 325 Mg Tablet) 650 mg PO Q6H PRN PRN Reason: Pain, Mild (Pain Scale 1-3) Last Admin: 11/19/22 20:41 Dose: 650 mg Documented By: JOVI Docusate Sodium (Docusate Sodium 100 Mg Capsule) 100 mg PO BID PRN PRN Reason: constipation Enoxaparin Sodium (Enoxaparin Sodium 150 Mg/Ml Syringe) 135 mg 1 mg/kg (135 mg) SUBCUT Q12H [facility] Last Admin: 11/21/22 10:23 Dose: 135 mg Documented By: RACHELE Ferrous Sulfate (Ferrous Sulfate 324 Mg Tablet.) 324 mg PO BIDWM [facility] Last Admin: 11/21/22 07:42 Dose: 324 mg Documented By: RACHELE Fluticasone Propionate (Fluticasone Propionate Nasal 16 Gm [place]) 2 spray NOSTRIL-B DAILY [facility] Last Admin: 11/21/22 12:37 Dose: 2 spray Documented By: RACHELE Fluticasone Propionate (Fluticasone Propionate Nasal 16 Gm [place]) 1 spray NOSTRIL-B DAILY [facility] Last Admin: 11/21/22 12:39 Dose: Not Given Documented By: RACHELE Non-Admin Reason: Previously Administered Folic Acid (Folic Acid 1 Mg Tablet) 1 mg PO DAILY [facility] Last Admin: 11/21/22 07:42 Dose: 1 mg Documented By: RACHELE Lactulose (Lactulose 20 Gm/30 Ml Solution) 10 gm PO DAILY PRN PRN Reason: constipation Last Admin: 11/19/22 09:10 Dose: 10 gm Documented By: ANGELINA Levothyroxine Sodium (Levothyroxine Sodium 50 Mcg Tablet) 50 mcg PO DAILY@0600 [facility] Last Admin: 11/21/22 05:37 Dose: 50 mcg Documented By: CONSTANZA Melatonin (Melatonin 3 Mg Tablet) 6 mg PO BEDTIME PRN PRN Reason: Insomnia Non-Formulary Medication (Naloxegol [Movantik]) 12.5 mg PO DAILY [facility] Nystatin (Nystatin Powder 15 Gm Bottle) 1 appl TOPICAL BID [facility]; Protocol Last Admin: 11/21/22 07:42 Dose: 1 appl Documented By: RACHELE Omeprazole (Omeprazole 20 Mg Capsule.Dr) 20 mg PO DAILY@0630 [facility] Last Admin: 11/21/22 05:37 Dose: 20 mg Documented By: CONSTANZA Ondansetron HCl (Ondansetron Hcl 4 Mg/2 Ml Vial) 4 mg IVPUSH Q8H PRN PRN Reason: Nausea and Vomiting Oxycodone HCl (Oxycodone Hcl Immed Release 5 Mg Tablet) 10 mg PO Q6H PRN PRN Reason: pain severe Last Admin: 11/20/22 12:33 Dose: 10 mg Documented By: ANGELINA Pharmacy Consult (Consult Rx Vancomycin Dosing) 1 each MISCELLANE DAILY PRN PRN Reason: Consult order Pharmacy Consult (Consult Rx Perform Med Rec) 1 each MISCELLANE ONCE PRN PRN Reason: Consult order Polyethylene Glycol (Polyethylene Glycol 3350 17 Gm Powd.Pack) 17 gm PO DAILY [facility] Last Admin: 11/21/22 07:45 Dose: Not Given Documented By: RACHELE Non-Admin Reason: Patient Refused Promethazine HCl (Promethazine Hcl 25 Mg Tablet) 12.5 mg PO BID PRN PRN Reason: itch Sodium Chloride (0.9 % Sodium Chloride Flush 3 Ml Syringe) 3 ml IVFLUSH QSHIFT [facility] Last Admin: 11/21/22 07:42 Dose: 3 ml Documented By: RACHELE Tamsulosin HCl (Tamsulosin Hcl 0.4 Mg Capsule) 0.4 mg PO DAILY [facility] Last Admin: 11/21/22 07:42 Dose: 0.4 mg Documented By: RACHELE Labs 11/21/22 05:25 11/21/22 05:25 Labs: Laboratory Results - last 24 hr 11/21/22 11/21/22 05:25 05:25 MCV 94.4 MCH 29.4 MCHC 31.2 RDW 16.4 H Plt Count 262 MPV 9.6 Absolute Nucleated RBC 0.020 H Nucleated RBC % (auto) 0.1 Estim Creat Clear Calc 82.3 Estimated GFR > 60 Assessment and Plan (1) Sepsis due to cellulitis: Status: Acute (2) Morbid obesity: Status: Acute (3) Hypothyroidism: Status: Acute Plan 72yo M with hypothyroidism, RA, chronic veous stasis, morbid obesity, GERD, BPH, admitted with sepsis due to bilateral leg cellulitis. sepsis due to cellulitis of BLE - WBC trending down, on vanco d3, BCx 2, no growth - lactate normal, CRP 39.80 - case discussed with ID she recommend to DC vanco in place patient on IV ceftriaxone, follow clinical course candidal intertrigo - continue nystatin powder BLE swelling/bilateral lower extremity DVT - repeat duplex study showed bilateral DVT left greater than right continue therapeutic enoxaparin - BNP normal.? negative urine protein, - dc furosemide morbid obesity - diet/exercise counseling, hemoglobin A1c 5 average blood sugar 97 hypothyroidism - continue LT4, TSH 5.75, dose of synthroid adjusted follow TSH in 6 weeks. BPH - continue tamsulosin Constipation resolved ,cont. stool softeners, follow clinical course. VTE ppx - enoxaparin therapeutic dose dispo - TBD In my clinical judgment, the patient requires continued hospitalization for the following reasons: IV ABX, patient lives alone at home with private [employer] will discuss dispo plan with Case Management. Time Spent With Patient Time: Total time managing care of this patient today ____ minutes. Quality Stroke Does the patient have a stroke diagnosis?: No VTE Prior VTE?: No VTE Risk Level:: Medical - moderate - high VTE Device Contraindication: Treatment Not Indicated VTE Drug Contraindication: N/A - Med Ordered
[2022-11-21] MEDS: cefTRIAXone sodium 1 GM in 0.9 % Sodium Chloride 50 ML IV (17:10)
[2022-11-21 19:48] VITALS: BP 100/57; PULSE 91; RESP 20; TEMP 36.2; O2SAT 95
[2022-11-21] MEDS: Acetaminophen 325 MG TABLET 650 MG PO (20:54)
[2022-11-21] MEDS: oxyCODONE HCl Immed Release 5 MG TABLET 10 MG PO (20:54)
[2022-11-21] MEDS: Melatonin 3 MG TABLET 6 MG PO (20:54)
--- NOTE | 2022-11-21 22:37 | P.CNID_ITS ---
History of Present Illness Data of Consult Service Date: 11/21/22 Requesting physician: Harsha Cotter Primary Care Provider: Meng Nunez MD [facility] Reason for consult: bilateral leg erythema He presents with 14 days bilateral leg swelling and redness. He also has pain and swelling when I touch his toes. He came to ER on 11/19. He is bedridden and has bilateral DVTs. He also has superficial ulcers back and buttocks. He lives alone at home with bid A services apparently. He has Group B strep bacteremia in 2020 but blood cultures so far negative. [facility] Past Medical History Medical History Acute embolism and thrombosis of right femoral vein Acute thromboembolism of deep veins of lower extremity Arthritis of both knees Bacteremia Chronic arthritis Chronic kidney disease, stage 3 unspecified Chronic pain syndrome Constipation Esophageal reflux H/O gastric ulcer Morbid obesity Obstructive sleep apnea (adult) (pediatric) Other chronic pain Pain management Peripheral vascular disease Primary osteoarthritis, right shoulder Retention of urine Rheumatoid arthritis Rheumatoid arthritis Streptococcus, group b, as the cause of diseases classified elsewhere Unsteadiness on feet Weakness Family History Family History Father CAD (coronary artery disease) Diabetes Mother Diabetes Brother Diabetes Family history: reviewed and not pertinent Surgical History Surgical History H/O colonoscopy H/O esophagogastroduodenoscopy H/O rectal polypectomy History of bilateral cataract extraction Social History Social History Household Members: None Housing: Apartment Alcohol intake: never Patient Tobacco Use Status: Never used Tobacco e-Cigarette/Vaping Use: Never Used Second Hand Smoke Exposure: No service: No Current occupational status: unemployed Cognitive needs: Yes (wheel chair) Hearing needs: No Vision needs: Yes (glasses) Meds Allergies Allergy/AdvReac Type Severity Reaction Status Date / Time simvastatin [SIMVASTATIN] Allergy Unknown TOLD NEVER Verified 11/18/22 03:39 TO TAKE, Cramps in legs Gold shot AdvReac Unknown Itching Uncoded 11/18/22 03:39 Active Medications: Current Medications Acetaminophen (Acetaminophen 325 Mg Tablet) 650 mg PO Q6H PRN PRN Reason: Pain, Mild (Pain Scale 1-3) Last Admin: 11/21/22 20:54 Dose: 650 mg Docusate Sodium (Docusate Sodium 100 Mg Capsule) 100 mg PO BID PRN PRN Reason: constipation Enoxaparin Sodium (Enoxaparin Sodium 150 Mg/Ml Syringe) 135 mg 1 mg/kg (135 mg) SUBCUT Q12H [facility] Last Admin: 11/21/22 20:51 Dose: 135 mg Ferrous Sulfate (Ferrous Sulfate 324 Mg Tablet.) 324 mg PO BIDWM [facility] Last Admin: 11/21/22 17:14 Dose: 324 mg Fluticasone Propionate (Fluticasone Propionate Nasal 16 Gm [place]) 2 spray NO STRIL-B DAILY [facility] Last Admin: 11/21/22 12:37 Dose: 2 spray Fluticasone Propionate (Fluticasone Propionate Nasal 16 Gm [place]) 1 spray NOSTRIL-B DAILY [facility] Last Admin: 11/21/22 12:39 Dose: Not Given Folic Acid (Folic Acid 1 Mg Tablet) 1 mg PO DAILY [facility] Last Admin: 11/21/22 07:42 Dose: 1 mg Ceftriaxone Sodium 1 gm/ (Sodium Chloride) 50 mls @ 100 mls/hr IV Q24H [facility] Last Infusion: 11/21/22 17:59 Dose: Infused Lactulose (Lactulose 20 Gm/30 Ml Solution) 10 gm PO DAILY PRN PRN Reason: constipation Last Admin: 11/19/22 09:10 Dose: 10 gm Levothyroxine Sodium (Levothyroxine Sodium 50 Mcg Tablet) 50 mcg PO DAILY@0600 [facility] Last Admin: 11/21/22 05:37 Dose: 50 mcg Melatonin (Melatonin 3 Mg Tablet) 6 mg PO BEDTIME PRN PRN Reason: Insomnia Last Admin: 11/21/22 20:54 Dose: 6 mg Non-Formulary Medication (Naloxegol [Movantik]) 12.5 mg PO DAILY [facility] Nystatin (Nystatin Powder 15 Gm Bottle) 1 appl TOPICAL BID [facility]; Protocol Last Admin: 11/21/22 20:55 Dose: 1 appl Omeprazole (Omeprazole 20 Mg Capsule.) 20 mg PO DAILY@0630 [facility] Last Admin: 11/21/22 05:37 Dose: 20 mg Ondansetron HCl (Ondansetron Hcl 4 Mg/2 Ml Vial) 4 mg IVPUSH Q8H PRN PRN Reason: Nausea and Vomiting Oxycodone HCl (Oxycodone Hcl Immed Release 5 Mg Tablet) 10 mg PO Q6H PRN PRN Reason: pain severe Last Admin: 11/21/22 20:54 Dose: 10 mg Pharmacy Consult (Consult Rx Vancomycin Dosing) 1 each MISCELLANE DAILY PRN PRN Reason: Consult order Pharmacy Consult (Consult Rx Perform Med Rec) 1 each MISCELLANE ONCE PRN PRN Reason: Consult order Polyethylene Glycol (Polyethylene Glycol 3350 17 Gm Powd.Pack) 17 gm PO DAILY [facility] Last Admin: 11/21/22 07:45 Dose: Not Given Promethazine HCl (Promethazine Hcl 25 Mg Tablet) 12.5 mg PO BID PRN PRN Reason: itch Sodium Chloride (0.9 % Sodium Chloride Flush 3 Ml Syringe) 3 ml IVFLUSH QSHIFT [facility] Last Admin: 11/21/22 20:52 Dose: 3 ml Tamsulosin HCl (Tamsulosin Hcl 0.4 Mg Capsule) 0.4 mg PO DAILY [facility] Last Admin: 11/21/22 07:42 Dose: 0.4 mg Home Medications Medication Instructions Recorded Confirmed Last Taken Type omeprazole 20 mg capsule,delayed 20 mg PO DAILY 05/04/20 11/18/22 05/06/20 Hist ory release etanercept 50 mg/mL (1 mL) 50 mg subcut QWEEK 05/29/21 11/18/22 Unknown History subcutaneous syringe (Enbrel) Physical Exam Vital Signs: Vital Signs: Last Vital Signs Temp 97.1 F 11/21/22 19:48 Pulse 91 11/21/22 19:48 Resp 20 11/21/22 19:48 BP 100/57 L 11/21/22 19:48 Pulse Ox 95 11/21/22 19:48 O2 Del Method Nasal Cannula 11/21/22 19:48 O2 Flow Rate 2 11/21/22 19:48 BMI result Body Mass Index 47.1 Const: General: cooperative HEENT: Head: Yes normal to inspection Face and sinus: Yes normal facial exam Mouth: Normal oral and palatal mucosa present Teeth and gingiva: dentition normal Eyes: General: appearance normal, both eyes and all related structures Pupils: Equal, round and reactive pupils present Resp: Effort & Inspection: normal respiratory effort Cardio: Rate: regular rate Rhythm: regular rhythm GI: Palpation (GI): Soft to palpation and nontender : General: Yes no CVA tenderness Back/Spine/Pelvis: Back: no CVA tenderness Skin: General skin exam: no rashes or lesions noted Neuro: General: moves all extremities Cranial nerves: Yes Equal, round and reactive pupils present Extrem: Other: bilateral LE swelling redness below knees bilaterally swollen painful toes and tinea pedis Psych: Appearance: grossly normal Results Labs 11/21/22 05:25 11/21/22 05:25 Labs: Short CBC 11/21/22 Range/Units 05:25 WBC 13.5 H (4.8-10.8) X10*3/uL Hgb 12.1 L (14.0-18.0) g/dl Hct 38.8 L (42.0-52.0) % Plt Count 262 (160-400) X10*3/uL BMP 11/21/22 05:25 Creatinine 1.05 Microbiology Microbiology Results: Microbiology 11/17/22 23:22 Blood - Venous Blood Culture - Preliminary No growth after 48 hours. 11/17/22 22:16 Blood - Venous Blood Culture - Preliminary No growth after 48 hours. Assessment and Plan (1) Sepsis due to cellulitis: Status: Acute He probably has typeable strep again ,especially with bilateral findings and leukocytosis. Tinea pedis is contributory. He has also DVT contributory. (2) Morbid obesity: Status: Acute (3) Rheumatoid arthritis: Status: Acute Plan Ceftriaxone 2 g IV daily until improved and then po Ceftin 500 mg bid total 14 days. Topical steroid cream bid to legs and lotrisone to intertriginous area. Time Spent With Patient Time: Total time managing care of this patient today ____ minutes.
[2022-11-22 03:13] VITALS: BP 90/54; PULSE 93; RESP 16; TEMP 36.2; O2SAT 95
[2022-11-22] MEDS: Omeprazole 20 MG CAPSULE.DR PO (06:20)
[2022-11-22] MEDS: Levothyroxine Sodium 50 MCG TABLET PO (06:20)
[2022-11-22 07:01] LABS: Creatinine Clr Calc Pharmacy 91.9; Estimated Glomerular Filt Rate > 60
[2022-11-22 07:34] VITALS: BP 113/61; PULSE 86; RESP 18; TEMP 36.1; O2SAT 96
[2022-11-22] MEDS: Tamsulosin HCL 0.4 MG CAPSULE PO (09:11)
[2022-11-22] MEDS: polyethylene glycoL 3350 17 GM POWD.PACK PO (09:11)
[2022-11-22] MEDS: Folic Acid 1 MG TABLET PO (09:12)
[2022-11-22] MEDS: Nystatin Powder 15 GM BOTTLE 1 APPL TOPICAL ×2 (09:12→20:23)
[2022-11-22] MEDS: Ferrous Sulfate 324 MG TABLET.DR PO ×2 (09:12→17:49)
[2022-11-22] MEDS: Enoxaparin Sodium 150 MG/ML SYRINGE 135 MG SUBCUT (09:12)
[2022-11-22] MEDS: 0.9 % Sodium Chloride Flush 3 ML SYRINGE IVFLUSH ×3 (09:13→20:24)
[2022-11-22] MEDS: Fluticasone Propionate Nasal 16 GM SPRAY 1 SPRAY NOSTRIL-B (09:13)
--- NOTE | 2022-11-22 14:15 | PC.NURSE ---
Pt complaining of SOB and feeling of heaviness in his chest without pain. Vitals BP 119/66, P 92, O2 96 on room air and respirations 19. Dr Cotter made aware and pt put on 2L NC for comfort. Dr Cotter at bedside.
[2022-11-22 15:24] VITALS: BP 106/65; PULSE 96; RESP 20; TEMP 36; O2SAT 97
--- NOTE | 2022-11-22 15:40 | P.PNIM_ITS ---
Subjective Subjective Date of Service: 11/22/22 Interval History: Complained of chest heaviness and shortness of breath this afternoon placed on oxygen and felt better although oxygenation remains stable 96% on room air prior to episode, overall feeling better legs remains swollen and hyperemic, no tenderness to palpation, denies fever chills, no cough. Review of Systems All other system reviewed and negative. Physical Exam Vital Signs: Vital Signs: Last Vital Signs Temp 96.8 F 11/22/22 15:24 Pulse 96 11/22/22 15:24 Resp 20 11/22/22 15:24 BP 106/65 11/22/22 15:24 Pulse Ox 97 11/22/22 15:24 O2 Del Method Nasal Cannula 11/22/22 15:24 O2 Flow Rate 2 11/22/22 15:24 BMI result Body Mass Index 47.1 Const: Other: General resting in bed, no distress Neck? supple no JV D. CVS? regular ra te rhythm, Respira tory lungs clear t o auscultation, no respiratory distr ess Gastrointestin al abdomen obese, soft, nontender, b owel sounds audibl e, no rigidity. Ex tremities bilatera l lower extremity redness,warmth, te nderness and swell ing improving,no s erous drainage lef t leg. Neuro non f ocal, speech clear . psych appropriat e affect Objective Data Active Medications Acetaminophen (Acetaminophen 325 Mg Tablet) 650 mg PO Q6H PRN PRN Reason: Pain, Mild (Pain Scale 1-3) Last Admin: 11/21/22 20:54 Dose: 650 mg Documented By: CONSTANZA Apixaban (Apixaban 5 Mg Tablet) 10 mg PO BID [facility] Stop: 11/29/22 09:01 Docusate Sodium (Docusate Sodium 100 Mg Capsule) 100 mg PO BID PRN PRN Reason: constipation Ferrous Sulfate (Ferrous Sulfate 324 Mg Tablet.) 324 mg PO BIDWM [facility] Last Admin: 11/22/22 09:12 Dose: 324 mg Documented By: GINNY Fluticasone Propionate (Fluticasone Propionate Nasal 16 Gm [place]) 2 spray NOSTRIL-B DAILY [facility] Last Admin: 11/21/22 12:37 Dose: 2 spray Documented By: RACHELE Fluticasone Propionate (Fluticasone Propionate Nasal 16 Gm [place]) 1 spray NOSTRIL-B DAILY [facility] Last Admin: 11/22/22 09:13 Dose: 1 spray Documented By: GINNY Folic Acid (Folic Acid 1 Mg Tablet) 1 mg PO DAILY [facility] Last Admin: 11/22/22 09:12 Dose: 1 mg Documented By: GINNY Ceftriaxone Sodium 2 gm/ (Sodium Chloride) 50 mls @ 100 mls/hr IV Q24H [facility] Lactulose (Lactulose 20 Gm/30 Ml Solution) 10 gm PO DAILY PRN PRN Reason: constipation Last Admin: 11/19/22 09:10 Dose: 10 gm Documented By: ANGELINA Levothyroxine Sodium (Levothyroxine Sodium 50 Mcg Tablet) 50 mcg PO DAILY@0600 [facility] Last Admin: 11/22/22 06:20 Dose: 50 mcg Documented By: CONSTANZA Melatonin (Melatonin 3 Mg Tablet) 6 mg PO BEDTIME PRN PRN Reason: Insomnia Last Admin: 11/21/22 20:54 Dose: 6 mg Documented By: CONSTANZA Non-Formulary Medication (Naloxegol [Movantik]) 12.5 mg PO DAILY [facility] Nystatin (Nystatin Powder 15 Gm Bottle) 1 appl TOPICAL BID [facility]; Protocol Last Admin: 11/22/22 09:12 Dose: 1 appl Documented By: GINNY Omeprazole (Omeprazole 20 Mg Capsule.Dr) 20 mg PO DAILY@0630 [facility] Last Admin: 11/22/22 06:20 Dose: 20 mg Documented By: CONSTANZA Ondansetron HCl (Ondansetron Hcl 4 Mg/2 Ml Vial) 4 mg IVPUSH Q8H PRN PRN Reason: Nausea and Vomiting Oxycodone HCl (Oxycodone Hcl Immed Release 5 Mg Tablet) 10 mg PO Q6H PRN PRN Reason: pain severe Last Admin: 11/21/22 20:54 Dose: 10 mg Documented By: CONSTANZA Pharmacy Consult (Consult Rx Vancomycin Dosing) 1 each MISCELLANE DAILY PRN PRN Reason: Consult order Pharmacy Consult (Consult Rx Perform Med Rec) 1 each MISCELLANE ONCE PRN PRN Reason: Consult order Polyethylene Glycol (Polyethylene Glycol 3350 17 Gm Powd.Pack) 17 gm PO DAILY [facility] Last Admin: 11/22/22 09:11 Dose: 17 gm Documented By: GINNY Promethazine HCl (Promethazine Hcl 25 Mg Tablet) 12.5 mg PO BID PRN PRN Reason: itch Sodium Chloride (0.9 % Sodium Chloride Flush 3 Ml Syringe) 3 ml IVFLUSH QSHIFT [facility] Last Admin: 11/22/22 09:13 Dose: 3 ml Documented By: GINNY Tamsulosin HCl (Tamsulosin Hcl 0.4 Mg Capsule) 0.4 mg PO DAILY [facility] Last Admin: 11/22/22 09:11 Dose: 0.4 mg Documented By: GINNY Labs 11/21/22 05:25 11/22/22 06:24 Labs: Laboratory Results - last 24 hr 11/22/22 06:24 Estim Creat Clear Calc 91.9 Estimated GFR > 60 Assessment and Plan (1) Sepsis due to cellulitis: Status: Acute (2) Morbid obesity: Status: Acute (3) Hypothyroidism: Status: Acute Plan 72yo M with hypothyroidism, RA, chronic veous stasis, morbid obesity, GERD, BPH, admitted with sepsis due to bilateral leg cellulitis. sepsis due to cellulitis of BLE - WBC trending down, status post vanco x3 days blood cultures x2 negative - lactate normal, CRP 39.80 - case discussed with ID she recommend 2 g IV ceftriaxone, followed by Ceftin 500 b.i.d. for 14 days total Will keep leg elevated, topical steroid cream b.i.d. to both legs follow clinical course Chest heaviness transient with shortness of breath ,no chest pain. Had an episode of chest heaviness without chest pain associated with shortness of breath, although had no hypoxia, as per patient had similar episode yesterday will obtain CTA chest to rule out PE Continue O2 support. candidal intertrigo - continue nystatin powder/Lotrisone BLE swelling/bilateral lower extremity DVT - repeat duplex study showed bilateral DVT left greater than right continue on therapeutic enoxaparin will transition to by mouth Eliquis 10 mg b.i.d. for 1 week followed by 5 mg b.i.d. - BNP normal.? negative urine protein, - status post IV Lasix will transition to low dose po furosemide morbid obesity - diet/exercise counseling, hemoglobin A1c 5 average blood sugar 97 hypothyroidism - continue LT4, TSH 5.75, dose of synthroid adjusted follow TSH in 6 weeks. BPH - continue tamsulosin Constipation resolved ,cont. stool softeners, follow clinical course. VTE ppx - eliquis dispo - TBD In my clinical judgment, the patient requires continued hospitalization for the following reasons: IV ABX, waiting for CTA chest, patient lives alone at home with private [employer] will discuss dispo plan with Case Management. Time Spent With Patient Time: Total time managing care of this patient today ____ minutes. Quality Stroke Does the patient have a stroke diagnosis?: No VTE Prior VTE?: No VTE Risk Level:: Medical - moderate - high VTE Device Contraindication: Treatment Not Indicated VTE Drug Contraindication: N/A - Med Ordered
[2022-11-22 16:26] LABS: Vancomycin Random 14.8 mcg/mL (15-20)
[2022-11-22] MEDS: iohexoL 350 MG/ML 100 ML INFUS..BTL IV (17:20)
[2022-11-22] MEDS: cefTRIAXone sodium 2 GM in 0.9 % Sodium Chloride 50 ML IV (17:49)
[2022-11-22 19:50] VITALS: BP 105/56; PULSE 96; RESP 20; TEMP 36.2; O2SAT 98
[2022-11-22] MEDS: Apixaban 5 MG TABLET 10 MG PO (20:24)
[2022-11-22] MEDS: Docusate Sodium 100 MG CAPSULE PO (20:34)
--- NOTE | 2022-11-22 23:08 | P.PNID_ITS ---
Subjective Subjective Date of Service: 11/22/22 Critical Care Time (minutes): 15 Comment: his legs are red ,but slight better Objective Data Labs 11/21/22 05:25 11/24/22 07:11 Labs: Laboratory Results - last 24 hr 11/22/22 11/22/22 06:24 15:23 Creatinine 0.94 Estim Creat Clear Calc 91.9 Estimated GFR > 60 Random Vancomycin 14.8 L Microbiology Microbiology Results: Microbiology 11/17/22 23:22 Blood - Venous Blood Culture - Preliminary No growth after 48 hours. 11/17/22 22:16 Blood - Venous Blood Culture - Preliminary No growth after 48 hours. Physical Exam 2 Vital Signs: Vital Signs: Last Vital Signs Temp 97.1 F 11/22/22 19:50 Pulse 96 11/22/22 19:50 Resp 20 11/22/22 19:50 BP 105/56 L 11/22/22 19:50 Pulse Ox 98 11/22/22 19:50 O2 Del Method Nasal Cannula 11/22/22 19:50 O2 Flow Rate 2 11/22/22 19:50 BMI result Body Mass Index 47.1 Const: General: cooperative Resp: Effort & Inspection: normal respiratory effort Cardio: Rate: regular rate Rhythm: regular rhythm GI: Palpation (GI): Soft to palpation and nontender Extrem: Other: bilateral erythema,possible slight improvement Assessment and Plan Assessment and plan (1) Sepsis due to cellulitis: Problem details: Continue Ceftriaxone Change to po per previous note when improved. Status: Resolved Time Spent With Patient Time: Total time managing care of this patient today ____ minutes.
[2022-11-23 03:18] VITALS: BP 99/56; PULSE 93; RESP 17; TEMP 36.7; O2SAT 96
[2022-11-23] MEDS: Omeprazole 20 MG CAPSULE.DR PO (05:21)
[2022-11-23] MEDS: Levothyroxine Sodium 50 MCG TABLET PO (05:21)
[2022-11-23] MEDS: oxyCODONE HCl Immed Release 5 MG TABLET 10 MG PO (05:21)
[2022-11-23 06:42] LABS: Estimated Glomerular Filt Rate > 60
[2022-11-23 07:26] VITALS: BP 119/65; PULSE 95; RESP 18; TEMP 36; O2SAT 98
[2022-11-23] MEDS: polyethylene glycoL 3350 17 GM POWD.PACK PO (08:41)
[2022-11-23] MEDS: Tamsulosin HCL 0.4 MG CAPSULE PO (08:41)
[2022-11-23] MEDS: Folic Acid 1 MG TABLET PO (08:41)
[2022-11-23] MEDS: Apixaban 5 MG TABLET 10 MG PO ×2 (08:41→22:00)
[2022-11-23] MEDS: Ferrous Sulfate 324 MG TABLET.DR PO ×2 (08:41→17:36)
[2022-11-23] MEDS: Nystatin Powder 15 GM BOTTLE 1 APPL TOPICAL ×2 (08:42→22:00)
[2022-11-23] MEDS: 0.9 % Sodium Chloride Flush 3 ML SYRINGE IVFLUSH ×3 (08:42→22:01)
[2022-11-23] MEDS: Fluticasone Propionate Nasal 16 GM SPRAY 1 SPRAY NOSTRIL-B (08:42)
[2022-11-23 11:08] VITALS: O2SAT 96
[2022-11-23 15:43] VITALS: BP 107/63; PULSE 90; RESP 20; TEMP 36; O2SAT 96
--- NOTE | 2022-11-23 16:08 | HO.PM.IMPN ---
Subjective Subjective Date of Service: 11/23/22 Interval History: No acute issues overnight. States feels much better wishing to go home Review of Systems Denies chest pain Denies shortness of breath Denies nausea vomiting diarrhea Denies fever chills Physical Exam Vital Signs: Vital Signs: Last Vital Signs Temp 96.8 F 11/23/22 15:43 Pulse 90 11/23/22 15:43 Resp 20 11/23/22 15:43 BP 107/63 11/23/22 15:43 Pulse Ox 96 11/23/22 15:43 O2 Del Method Room Air 11/23/22 15:43 O2 Flow Rate 2 11/23/22 07:26 BMI result Body Mass Index 47.1 Const: Other: Awake alert no acute distress Resp: Other: Clear to auscultation bilaterally no rales rhonchi or wheezes Cardio: Other: No S4; positive S1-S2; no S3 murmurs rubs gallops GI: Other: Soft nontender nondistended normoactive bowel sounds Extrem: Other: Minimal erythema mid moyer bilaterally Objective Data Active Medications Acetaminophen (Acetaminophen 325 Mg Tablet) 650 mg PO Q6H PRN PRN Reason: Pain, Mild (Pain Scale 1-3) Last Admin: 11/21/22 20:54 Dose: 650 mg Documented By: CONSTANZA Apixaban (Apixaban 5 Mg Tablet) 10 mg PO BID [facility] Stop: 11/29/22 09:01 Last Admin: 11/23/22 08:41 Dose: 10 mg Documented By: GINNY Docusate Sodium (Docusate Sodium 100 Mg Capsule) 100 mg PO BID PRN PRN Reason: constipation Last Admin: 11/22/22 20:34 Dose: 100 mg Documented By: RODY Ferrous Sulfate (Ferrous Sulfate 324 Mg Tablet.Dr) 324 mg PO BIDWM [facility] Last Admin: 11/23/22 08:41 Dose: 324 mg Documented By: GINNY Fluticasone Propionate (Fluticasone Propionate Nasal 16 Gm [place]) 2 spray NOSTRIL-B DAILY [facility] Last Admin: 11/21/22 12:37 Dose: 2 spray Documented By: RACHELE Fluticasone Propionate (Fluticasone Propionate Nasal 16 Gm [place]) 1 spray NOSTRIL-B DAILY [facility] Last Admin: 11/23/22 08:42 Dose: 1 spray Documented By: GINNY Folic Acid (Folic Acid 1 Mg Tablet) 1 mg PO DAILY [facility] Last Admin: 11/23/22 08:41 Dose: 1 mg Documented By: GINNY Ceftriaxone Sodium 2 gm/ (Sodium Chloride) 50 mls @ 100 mls/hr IV Q24H [facility] Last Infusion: 11/22/22 18:59 Dose: 0 mls/hr Documented By: GINNY Lactulose (Lactulose 20 Gm/30 Ml Solution) 10 gm PO DAILY PRN PRN Reason: constipation Last Admin: 11/19/22 09:10 Dose: 10 gm Documented By: ANGELINA Levothyroxine Sodium (Levothyroxine Sodium 50 Mcg Tablet) 50 mcg PO DAILY@0600 [facility] Last Admin: 11/23/22 05:21 Dose: 50 mcg Documented By: KRYSTLE Melatonin (Melatonin 3 Mg Tablet) 6 mg PO BEDTIME PRN PRN Reason: Insomnia Last Admin: 11/21/22 20:54 Dose: 6 mg Documented By: CONSTANZA Non-Formulary Medication (Naloxegol [Movantik]) 12.5 mg PO DAILY [facility] Nystatin (Nystatin Powder 15 Gm Bottle) 1 appl TOPICAL BID [facility]; Protocol Last Admin: 11/23/22 08:42 Dose: 1 appl Documented By: GINNY Omeprazole (Omeprazole 20 Mg Capsule.Dr) 20 mg PO DAILY@0630 [facility] Last Admin: 11/23/22 05:21 Dose: 20 mg Documented By: KRYSTLE Ondansetron HCl (Ondansetron Hcl 4 Mg/2 Ml Vial) 4 mg IVPUSH Q8H PRN PRN Reason: Nausea and Vomiting Pharmacy Consult (Consult Rx Perform Med Rec) 1 each MISCELLANE ONCE PRN PRN Reason: Consult order Polyethylene Glycol (Polyethylene Glycol 3350 17 Gm Powd.Pack) 17 gm PO DAILY [facility] Last Admin: 11/23/22 08:41 Dose: 17 gm Documented By: GINNY Promethazine HCl (Promethazine Hcl 25 Mg Tablet) 12.5 mg PO BID PRN PRN Reason: itch Sodium Chloride (0.9 % Sodium Chloride Flush 3 Ml Syringe) 3 ml IVFLUSH QSHIFT [facility] Last Admin: 11/23/22 08:42 Dose: 3 ml Documented By: GINNY Tamsulosin HCl (Tamsulosin Hcl 0.4 Mg Capsule) 0.4 mg PO DAILY [facility] Last Admin: 11/23/22 08:41 Dose: 0.4 mg Documented By: GINNY Labs 11/21/22 05:25 11/23/22 06:15 Labs: Laboratory Results - last 24 hr 11/22/22 11/23/22 15:23 06:15 Estim Creat Clear Calc 97.0 Estimated GFR > 60 Random Vancomycin 14.8 L Microbiology Microbiology Results: Microbiology 11/17/22 23:22 Blood Culture - Final Blood - Venous No growth after 5 days. 11/17/22 22:16 Blood Culture - Final Blood - Venous No growth after 5 days. Assessment and Plan (1) Sepsis due to cellulitis: Status: Acute (2) Acute deep vein thrombosis (DVT): Status: Acute Plan 72yo M with hypothyroidism, RA, chronic veous stasis, morbid obesity, GERD, BPH, admitted with sepsis due to bilateral leg cellulitis. Sepsis resolved; cellulitis markedly improved 1.Sepsis due to cellulitis of BLE (resolved) - cellulitis improved -continue ceftriaxone. .. Switch to Ceftin upon DC 2.BLE DVT -duplex study showed bilateral DVT left greater than right;Eliquis 10 mg b.i.d.(11/29) then 5 mg b.i.d. -lasix as per ouitpatient dosing 3.Hypothyroidism -supplements as order -follow TSH as outpatient. Eliquis DNR DNI Requires ongoing hospitalization for IV antibiotics to treat bilateral lower extremity cellulitis Time Spent With Patient Time: Total time managing care of this patient today ____ minutes. Quality Stroke Does the patient have a stroke diagnosis?: No VTE Prior VTE?: No VTE Risk Level:: Medical - moderate - high VTE Device Contraindication: Treatment Not Indicated VTE Drug Contraindication: N/A - Med Ordered
[2022-11-23] MEDS: cefTRIAXone sodium 2 GM in 0.9 % Sodium Chloride 50 ML IV (17:00)
[2022-11-23] MEDS: Lactulose 20 GM/30 ML SOLUTION 10 GM PO (17:35)
[2022-11-23 19:39] VITALS: BP 105/58; PULSE 95; RESP 20; TEMP 36; O2SAT 98
[2022-11-24 03:47] VITALS: BP 119/62; PULSE 103; RESP 16; TEMP 36; O2SAT 95
[2022-11-24] MEDS: Omeprazole 20 MG CAPSULE.DR PO (06:14)
[2022-11-24] MEDS: Levothyroxine Sodium 50 MCG TABLET PO (06:14)
[2022-11-24 07:30] VITALS: BP 116/64; PULSE 98; RESP 16; TEMP 36.2; O2SAT 96
[2022-11-24] MEDS: Tamsulosin HCL 0.4 MG CAPSULE PO (09:07)
[2022-11-24] MEDS: Folic Acid 1 MG TABLET PO (09:07)
[2022-11-24] MEDS: Apixaban 5 MG TABLET 10 MG PO (09:07)
[2022-11-24] MEDS: Furosemide 20 MG TABLET PO (09:07)
[2022-11-24] MEDS: polyethylene glycoL 3350 17 GM POWD.PACK PO (09:07)
[2022-11-24] MEDS: Fluticasone Propionate Nasal 16 GM SPRAY 1 SPRAY NOSTRIL-B (09:07)
[2022-11-24] MEDS: Ferrous Sulfate 324 MG TABLET.DR PO (09:07)
[2022-11-24] MEDS: 0.9 % Sodium Chloride Flush 3 ML SYRINGE IVFLUSH (09:08)
[2022-11-24 09:10] LABS: Estimated Glomerular Filt Rate > 60
[2022-11-24] MEDS: Fluticasone Propionate Nasal 16 GM SPRAY 2 SPRAY NOSTRIL-B (09:14)
[2022-11-24] MEDS: Nystatin Powder 15 GM BOTTLE 1 APPL TOPICAL (09:14)
[2022-11-24] MEDS: Acetaminophen 325 MG TABLET 650 MG PO (09:14)
--- NOTE | 2022-11-24 12:16 | P.DS_ITS ---
DS: Providers Provider Date of Service: 11/24/22 Date of admission: 11/18/22 06:06 Date of discharge: 11/24/22 Primary care physician: Meng Nunez MD Consults: 11/21/22 10:13 Consult to Infectious Diseases Routine Consulting Provider: [facility] [place] Infectious Disease Reason for consultation: cellulitis Has provider been notified: No DS: Diagnosis Discharge Diagnosis (1) Sepsis due to cellulitis: Status: Acute (2) Acute deep vein thrombosis (DVT): Status: Acute DS: Summary Hospital Course Hospital Course: 72-year-old male with pertinent history of hypothyroidism, rheumatoid arthritis, chronic venous stasis, morbid obesity, gastroesophageal reflux disease, BPH presents to the emergency department evaluation of redness, swelling and pain of lower extremities.? Patient states it started about 2 weeks prior to presentation and has been progressive.? The right lower extremity has been draining purulent fluid.? Patient states he does have a history of recurrent cellulitis.? No dyspnea, orthopnea or PND.? Denies fever or chills.? Patient denies chest discomfort, palpitations, abdominal pain, changes in urinary or bowel habits. Hospital Course Patient received resuscitation with IV crystalloids in the ER according to protocol. Sepsis subsequently resolved. Bilateral venous duplexes were ordered secondary to bilateral lower extremity edema. Patient was positive for DVTs in both lower extremities more extensive than the left than the right. He was started on Eliquis 10 mg b.i.d. and will complete his loading dose on November 29. He with ME maintained on Eliquis 5 mg b.i.d.. During his hospitalization he was treated with ceftriaxone 2 g IV Q 24 hours with marked improvement in his lower extremity cellulitis. He was seen in consultation by Infectious Disease; blood cultures were negative and ID recommendation was to switch from ceftriaxone to p.o. Ceftin and complete a 14 day course upon discharge. At this point in time he is medically acceptable for return to home to resume services along with [facility] Time Spent with Patient Time attestation: Total time managing care of this patient today ____ minutes. Discharge coordination time: Greater than 30 minutes Quality: Safe Use of Opioids Does Pt have an Active Cancer Diagnosis on the Problem List?: No Quality: Stroke Does the patient have a stroke diagnosis?: No Physical Exam Vital Signs: Vital Signs: Last Vital Signs Temp 97.1 F 11/24/22 07:30 Pulse 98 11/24/22 07:30 Resp 16 11/24/22 07:30 BP 116/64 11/24/22 07:30 Pulse Ox 96 11/24/22 07:30 O2 Del Method Nasal Cannula 11/24/22 07:30 O2 Flow Rate 2 11/24/22 07:30 BMI result Body Mass Index 47.1 Const: Other: Awake alert no acute distress Resp: Other: Clear to auscultation bilaterally no rales rhonchi or wheezes Cardio: Other: No S4; positive S1-S2; no S3 murmurs rubs gallops GI: Other: Soft nontender nondistended normoactive bowel sounds Extrem: Other: Minimal erythema mid moyer bilaterally DS: Data Data Completed and Pending Labs on day of discharge: Laboratory Results - last 24 hr 11/24/22 07:11 Creatinine 0.97 Estim Creat Clear Calc 89.0 Estimated GFR > 60 Discharge Plan Discharge Anticipated Discharge Date/Time: 11/24/22 11:58 Patient Disposition: Home Health Service Discharge Diagnosis: Sepsis secondary to bilateral lower extremity cellulitis Referrals: Meng Nunez MD [Primary Care Provider] - 1 Week Discharge Medications: New cefuroxime axetil 500 mg tablet 500 mg PO BID 10 Days Qty: 20 0RF Eliquis 5 mg Tablet 10 mg PO BID Qty: 20 0RF Continued folic acid 1 mg tablet 1 mg PO DAILY Qty: 90 8RF levothyroxine 75 mcg tablet 37.5 mcg PO DAILY Qty: 90 8RF Movantik 12.5 mg tablet 12.5 mg PO QAM Qty: 90 8RF Rx Instructions: must be taken on empty stomach; no food 1 hr after or 2-3 hrs before dose tamsulosin [Flomax] 0.4 mg capsule 0.4 mg PO DAILY Qty: 90 8RF polyethylene glycol 3350 17 gram powder in packet 17 g PO DAILY Qty: 30 7RF lactulose 10 gram/15 mL (15 mL) solution 10 g PO DAILY PRN (Reason: constipation) Qty: 1440 0RF docusate sodium 100 mg capsule 100 mg PO BID PRN (Reason: constipation) 30 Days Qty: 60 7RF (DME) pads for bedsores 7 7/8 X 11 3/4 pad See Rx Instructions .Route Qty: 50 0RF Rx Instructions: As directed (DME) chux disposable bed liner large See Rx Instructions .Route .MEDSUPPLY Qty: 100 0RF Rx Instructions: As directed (DME) flushable wipes See Rx Instructions .Route .MEDSUPPLY Qty: 300 0RF Rx Instructions: As directed promethazine 25 mg tablet 12.5 mg PO BID PRN (Reason: itch) Qty: 180 8RF Gold [place] Medicated Eczema Rlf 2 % cream 1 appl topical BID Qty: 155 0RF hydrocortisone-aloe vera [Cortisone with Aloe] 1 % cream 1 appl topical BID Qty: 28.4 0RF (DME) DuoDERM CGF Border Dressing 4 X 5 bandage See Rx Instructions .Route Qty: 5 8RF Rx Instructions: As directed trolamine salicylate 10 % Cream 1 appl topical BID Qty: 1 0RF Protocol: Apply to: Apply to: Right shoulder ferrous sulfate 324 mg (65 mg iron) Tablet,Delayed Release (Dr/Ec) 324 mg PO BIDWM Qty: 60 0RF betamethasone dipropionate 0.05 % ointment 1 appl topical DAILY Qty: 45 0RF omeprazole 20 mg capsule,delayed release(DR/EC) 20 mg PO DAILY Enbrel 50 mg/mL (1 mL) syringe 50 mg subcut QWEEK (DME) Briefs, Adult-Extra Large Misc See Rx Instructions .Route Qty: 60 3RF Rx Instructions: Size 2x - 2 briefs daily fluticasone propionate 50 mcg/actuation spray,suspension 2 spray intranasal DAILY Qty: 15.8 8RF Rx Instructions: administer into each nostril nystatin 100,000 unit/gram powder 1 appl topical BID Qty: 60 0RF oxycodone 5 mg tablet 10 mg PO Q6H PRN (Reason: pain) Qty: 240 0RF Discontinued furosemide 20 mg tablet 20 mg PO BID Qty: 90 8RF Hold Instructions: Resume on 05/13/20. Discharge Orders: Discharge Order (Routine); Ordered 11/24/22 Ordered By: Gene Benitez Diet: Advance to usual diet Activity on Discharge: As tolerated Stand Alone Forms: Patient Portal Discharge page Care Plan Goals: Resume all your medications as taken prior to the hospital Health Concerns: Complete course of Ceftin 500 mg twice daily as directed. Complete Eliquis 2 tabs twice daily for 5 days then you will take Eliquis to 5 mg 1 tab twice daily until seen by your physician Plan of Treatment: Follow-up with your PCP in 2 weeks Assessment: See discharge summary
--- NOTE | 2022-11-24 12:27 | MHC.CM.PN ---
PT WILL DC HOME TODAY WITH [facility] [employer] BLS TRANSPORT BOOKED FOR 1300 HOURS CM CALLED [id number]PT[facility] WHO CONFIRMED SHE WILL MEET PT THERE TO LET HIM IN
== END 2022-11-24 13:16 | disposition home health service (06) | DRG 872 ==
LOC: HO.ED 11-18 01:40 → HO.EDOVER 11-18 06:13 → HO.S3 11-18 13:57
PROVIDERS: Family Medicine; Hospitalist; Admitting Provider Student in an Organized Health Care Education/Training Program; Emergency Provider Internal Medicine; PCP Internal Medicine; Visit Provider Hospitalist
DX: A41.9 Sepsis, unspecified organism (principal); L03.116 Cellulitis of left lower limb; L03.115 Cellulitis of right lower limb; Z68.42 Body mass index [BMI] 45.0-49.9, adult; I82.403 Acute embolism and thrombosis of unspecified deep veins of lower extremity, bilateral; E03.9 Hypothyroidism, unspecified; Z66 Do not resuscitate; G47.33 Obstructive sleep apnea (adult) (pediatric); K21.9 Gastro-esophageal reflux disease without esophagitis; E66.01 Morbid (severe) obesity due to excess calories; M06.9 Rheumatoid arthritis, unspecified; I87.323 Chronic venous hypertension (idiopathic) with inflammation of bilateral lower extremity; L30.4 Erythema intertrigo; E87.5 Hyperkalemia; B37.2 Candidiasis of skin and nail; N40.0 Benign prostatic hyperplasia without lower urinary tract symptoms; Z86.718 Personal history of other venous thrombosis and embolism; Z79.890 Hormone replacement therapy; Z79.51 Long term (current) use of inhaled steroids; Z79.620 Long term (current) use of immunosuppressive biologic; Z79.899 Other long term (current) drug therapy
CPT/HCPCS: 36415; 71275; 80048; 80053; 80202; 81001; 82565; 83036; 83605; 83880; 84156; 84443; 85025; 85027; 85379; 85610; 85730; 86140; 87040; 93970; 99285; J0696; J1650; J1940; J2543; J3370; J3371; Q9967

== ENCOUNTER → 2022-11-18 06:06 | Outpatient (BNV) | payer MEDICARE, MEDICAID, SELFPAY | PROVIDERS: Admitting Provider Student in an Organized Health Care Education/Training Program; Emergency Provider Internal Medicine; PCP Internal Medicine; Visit Provider Student in an Organized Health Care Education/Training Program | DX: A41.9 Sepsis, unspecified organism (principal); I82.411 Acute embolism and thrombosis of right femoral vein; L03.115 Cellulitis of right lower limb; L03.116 Cellulitis of left lower limb | CPT/HCPCS: 99222; 99233; 99239; 99499 ==

== ENCOUNTER → 2022-11-18 06:06 | Outpatient (BNV) | payer MEDICARE, MEDICAID, SELFPAY | PROVIDERS: Admitting Provider Student in an Organized Health Care Education/Training Program; Emergency Provider Internal Medicine; PCP Internal Medicine; Visit Provider Internal Medicine | DX: L03.90 Cellulitis, unspecified (principal); A41.9 Sepsis, unspecified organism | CPT/HCPCS: 99221; 99232 ==

== ENCOUNTER 2022-11-30 10:48 | Outpatient (AMB) | payer MEDICARE, MEDICAID, SELFPAY ==
--- NOTE | 2022-11-30 10:49 | MHC.PC.OV ---
Vital Signs 11/30/22 11:01 BP 116/66 Blood Pressure Location Rt brachial Position Sitting Pulse 85 Pulse Source Pulse Oximeter Pulse Oximetry (%) 98 Oxygen Delivery Method Room Air Int[place] [facility] Intake Note: Patient is here for hospital discharge follow up. Patient was discharged [place] [facility] [place] 11[place]22 for B/L Cellulitis on legs. Pt requesting a soft shoe dancer referral. Principal Data Architect Required: No Accompanied by: CELLOPHANE WRAPPING EXAMINER-Mery Allergies simvastatin [SIMVASTATIN] Allergy (Unknown, Verified 11/30/22 11:02) TOLD NEVER TO TAKE, Cramps in legs Gold shot Adverse Reaction (Unknown, Uncoded 11/30/22 11:02) Itching Medication List - Last Reconciled 12/03/22 by Meng Nunez MD apixaban (Eliquis) 10 mg (2 x 5 mg) PO BID betamethasone dipropionate 0.05% 1 appl topical DAILY cefuroxime axetil 500 mg PO BID 10 days [chux disposable bed liner As directed] colloidal oatmeal 2% (Gold Scott Medicated Eczema Relief) 1 appl topical BID diaper,brief,adult,disposable (Briefs, Adult-Extra Large) Size 2x - 2 briefs daily docusate sodium 100 mg PO BID PRN 30 days etanercept (Enbrel) 50 mg subcut QWEEK ferrous sulfate 324 mg PO BIDWM [flushable wipes As directed] fluticasone propionate 50 mcg/actuation 2 sprays intranasal DAILY folic acid 1 mg PO DAILY hydrocolloid dressing (DuoDERM CGF Adhesive Border Dressing) As directed hydrocortisone-aloe vera 1 % (Cortisone with Aloe) 1 appl topical BID lactulose 10 grams (15 mL) PO DAILY PRN levothyroxine 37.5 mcg (1/2 x 75 mcg) PO DAILY naloxegol (Movantik) 12.5 mg PO QAM nystatin 1 appl topical BID omeprazole 20 mg PO DAILY oxycodone 10 mg (2 x 5 mg) PO Q6H PRN pads for bedsores As directed polyethylene glycol 3350 17 grams PO DAILY promethazine 12.5 mg (1/2 x 25 mg) PO BID PRN tamsulosin (Flomax) 0.4 mg PO DAILY trolamine salicylate 10% 1 appl See Protocol topical BID Tobacco use date assessed: 10/30/22 Fall risk assessment: No Falls in past year Last assessed Fall Risk: 11/30/22 Dental Screening Dental Screen Date: 11/30/22 Did you have a dental visit in the last 12 months?: No Did you have a dental problem in the last 6 months where you did not have access to dental care?: No Was dental information given to patient?: Yes HPI [facility] HPI Details venous thrombosis RA and hypothyroidism; had a dvt and started on rx at rehab [facility] Medical History (Updated 12/03/22 @ 12:05 by Meng Nunez MD) Acute deep vein thrombosis (DVT) Acute embolism and thrombosis of right femoral vein Acute thromboembolism of deep veins of lower extremity Arthritis of both knees Bacteremia Chronic arthritis Chronic kidney disease, stage 3 unspecified Chronic pain syndrome Constipation Esophageal reflux H/O gastric ulcer Hypothyroidism Morbid obesity Obstructive sleep apnea (adult) (pediatric) Other chronic pain Pain management Peripheral vascular disease Primary osteoarthritis, right shoulder Retention of urine Rheumatoid arthritis Rheumatoid arthritis Streptococcus, group b, as the cause of diseases classified elsewhere Unsteadiness on feet Weakness Surgical History H/O colonoscopy H/O esophagogastroduodenoscopy H/O rectal polypectomy History of bilateral cataract extraction Family History Father CAD (coronary artery disease) Diabetes Mother Diabetes Brother Diabetes Social History Household Members: None Housing: Apartment Alcohol intake: never Patient Tobacco Use Status: Never used Tobacco e-Cigarette/Vaping Use: Never Used Second Hand Smoke Exposure: No service: No Current occupational status: unemployed Cognitive needs: Yes (wheel chair) Hearing needs: No Vision needs: Yes (glasses) Questionnaire Thrive Questionnaire Date Thrive assessed: 11/18/22 TACO-7 AMB Questionnaire TACO-7 Date TACO - 7 assessed: 06/28/22 Source: Developed by Drs. Rich Douglass, Diya Briones, Pavel Arita and colleagues, with an educational yaritza from [employer]. Review of Systems Const Denies chills, Denies fatigue, Denies headache(s) and Denies weight loss Eyes Denies change in vision, Denies diplopia and Denies eye pain ENT Denies vertigo, Denies dizziness, Denies headache(s) and Denies nasal discharge Card Denies chest pain, Denies rapid heart rate and Denies dyspnea on exertion Resp Denies chest congestion, Denies cough, Denies pain with cough and Denies dyspnea on exertion GI Denies abdominal pain, Denies hematochezia and Denies change in bowel habits Musc Denies myalgias, Denies arthralgias and Denies joint swelling Skin/Breast Denies lesions and Denies unusual bruising Neuro Denies vertigo, Denies dizziness, Denies headache(s) and Denies focal weakness Endo Denies fatigue Physical exam (Primary Care) Vital Signs: Last Vital Signs Pulse 85 11/30/22 11:01 BP 116/66 11/30/22 11:01 Pulse Ox 98 11/30/22 11:01 Oxygen Delivery Method Room Air 11/30/22 11:01 Tobacco/Smoking Status: Tobacco use Status Tobacco use date assessed 10/30/22 11/30/22 10:49 Patient Tobacco Use Status Never used Tobacco 11/30/22 10:49 e-Cigarette/Vaping Use Never Used 11/30/22 10:49 Thrive Assessment: Date of Thrive Assessment Date Thrive assessed 11/18/22 11/30/22 10:49 Const General: cooperative, healthy appearing and no acute distress Orientation/consciousness: oriented to person, oriented to place and oriented to time [facility] Head: Yes normal to inspection, Yes normocephalic and Yes atraumatic Mouth: Normal oral and palatal mucosa present and tongue normal Throat: Yes posterior oropharynx normal and Yes uvula midline Eyes General: appearance normal, both eyes and all related structures Neck Neck: Yes normal visual inspection, Yes full ROM and Yes no lymphadenopathy Thyroid: Thyroid normal Carotids: normal carotid upstroke Chest Chest palpation & inspection: normal inspection of the chest Resp Effort & Inspection: normal respiratory effort and able to speak in complete sentences Auscultation: clear to auscultation bilaterally Cardio Jugular venous distension: no JVD Palpation: normal PMI Rate: regular rate Rhythm: regular rhythm Heart sounds: S1 normal heart sound present and S2 normal heart sound present GI Inspection: Yes normal to inspection Palpation (GI): Soft to palpation and No hepatosplenomegaly present Auscultation: normal bowel sounds General: Yes no CVA tenderness Back/Spine/Pelvis Back: no CVA tenderness Skin General skin exam: no rashes or lesions noted Neuro General: oriented to person, oriented to place and oriented to time Extrem General: Yes normal to inspection and Yes full ROM Assessment and Plan Assessment & Plan (1) Venous thromboembolism: Code(s): I82.90 - Acute embolism and thrombosis of unspecified vein Plan: stable; same rx (2) Hypothyroidism: Code(s): E03.9 - Hypothyroidism, unspecified Plan: stable; same rx (3) Chronic arthritis: Code(s): M19.90 - Unspecified osteoarthritis, unspecified site Plan: as per rheum Medications: Refilled oxycodone 10 mg (2 x 5 mg) PO Q6H PRN 240 tabs 0RF pain Coding Level of Care Code Est Pt Level 4 (58713) Diagnoses Venous thromboembolism I82.90 Hypothyroidism E03.9 Chronic arthritis M19.90
[2022-11-30 11:01] VITALS: BP 116/66; PULSE 85; O2SAT 98
== END 2022-11-30 11:26 | disposition home or self-care (01) ==
PROVIDERS: PCP Internal Medicine; Visit Provider Internal Medicine
DX: I82.90 Acute embolism and thrombosis of unspecified vein (principal); E03.9 Hypothyroidism, unspecified; M19.90 Unspecified osteoarthritis, unspecified site
CPT/HCPCS: 99214

== ENCOUNTER 2022-12-19 11:26 | Outpatient (AMB) | payer MEDICARE, MEDICAID, SELFPAY ==
--- NOTE | 2022-12-19 11:20 | MHC.PC.OV ---
Vital Signs 12/19/22 11:23 Height 5 ft 7 in Intake Visit Reasons: 3mth f/u Allergies simvastatin [SIMVASTATIN] Allergy (Unknown, Verified 12/19/22 11:22) TOLD NEVER TO TAKE, Cramps in legs Gold shot Adverse Reaction (Unknown, Uncoded 12/19/22 11:22) Itching Tobacco use date assessed: 10/30/22 Fall risk assessment: No Falls in past year Last assessed Fall Risk: 12/19/22 Dental Screening Dental Screen Date: 12/19/22 Did you have a dental visit in the last 12 months?: No Did you have a dental problem in the last 6 months where you did not have access to dental care?: Yes Was dental information given to patient?: Patient has dentist HPI 3mth f/u HPI Details chronic knee pain on rx; doing well; not due for 10 days PFSH Medical History Acute deep vein thrombosis (DVT) Acute embolism and thrombosis of right femoral vein Acute thromboembolism of deep veins of lower extremity Arthritis of both knees Bacteremia Chronic arthritis Chronic kidney disease, stage 3 unspecified Chronic pain syndrome Constipation Esophageal reflux H/O gastric ulcer Hypothyroidism Morbid obesity Obstructive sleep apnea (adult) (pediatric) Other chronic pain Pain management Peripheral vascular disease Primary osteoarthritis, right shoulder Retention of urine Rheumatoid arthritis Rheumatoid arthritis Streptococcus, group b, as the cause of diseases classified elsewhere Unsteadiness on feet Weakness Surgical History H/O colonoscopy H/O esophagogastroduodenoscopy H/O rectal polypectomy History of bilateral cataract extraction Family History Father CAD (coronary artery disease) Diabetes Mother Diabetes Brother Diabetes Social History Household Members: None Housing: Apartment Alcohol intake: never Patient Tobacco Use Status: Never used Tobacco e-Cigarette/Vaping Use: Never Used Second Hand Smoke Exposure: No service: No Current occupational status: unemployed Cognitive needs: Yes (wheel chair) Hearing needs: No Vision needs: Yes (glasses) Questionnaire PHQ-9 Over the last 2 weeks, how often have you been bothered by any of the following problems? 1. Little interest or pleasure in doing things: not at all 2. Feeling down, depressed, or hopeless: not at all 3. Trouble falling or staying asleep, or sleeping too much: not at all 4. Feeling tired or having little energy: not at all 5. Poor appetite or overeating: not at all 6. Feeling bad about yourself - or that you are a failure or have let yourself or your family down: not at all 7. Trouble concentrating on things, such as reading the newspaper or watching television: not at all 8. Moving or speaking so slowly that other people could have noticed. Or the opposite - being so fidgety or restless that you have been moving around a lot more than usual: not at all 9. Thoughts that you would be better off or of hurting yourself in some way: not at all Total score: 0 Depression Screening Interpretation: Negative 17768 - PHQ-9 Billing: Yes Source: Developed by Drs. Rich Douglass, Pavel Harden and colleagues, with an educational yaritza from [employer]. Thrive Questionnaire Date Thrive assessed: 11/18/22 AUDIT C Alcohol Use Questionnaire (AUDIT-C) Score Reviewed/Action Taken: Yes TACO-7 AMB Questionnaire TACO-7 Date TACO - 7 assessed: 06/28/22 Source: Developed by Drs. Rich Douglass, Pavel Harden and colleagues, with an educational yaritza from [employer]. Review of Systems Const Denies chills, Denies headache(s) and Denies weight loss ENT Denies headache(s) Card Denies chest pain, Denies syncope, Denies irregular heart rhythm and Denies dyspnea Resp Denies chest congestion, Denies cough and Denies dyspnea GI Denies abdominal pain, Denies change in stool character, Denies nausea and Denies vomiting Musc Denies deformity and Denies joint swelling Neuro Denies syncope and Denies headache(s) Physical exam (Primary Care) Tobacco/Smoking Status: Tobacco use Status Tobacco use date assessed 10/30/22 12/19/22 11:24 Patient Tobacco Use Status Never used Tobacco 12/19/22 11:24 e-Cigarette/Vaping Use Never Used 12/19/22 11:24 PHQ-9: PHQ-9 Score PHQ-9: Total score 0 12/19/22 11:24 Depression Screening Interpretation: Negative Thrive Assessment: Date of Thrive Assessment Date Thrive assessed 11/18/22 12/19/22 11:24 Telehealth Telehealth Location of provider rendering services: practice address Location of patient: address on file Patient Identification confirmed using: Name, : Yes Telehealth method: voice only Patient verbally consented to treatment: Yes Patient verbally consented to billing insurance company: Yes Patient informed of any privacy concerns related to visit: Yes Minutes spent on Phone/Video with Pt.: 15 (telephone) Assessment and Plan Assessment & Plan (1) Pain management: Code(s): R52 - Pain, unspecified Medications: Refilled oxycodone 10 mg (2 x 5 mg) PO Q6H PRN 240 tabs 0RF pain Coding Level of Care Code Tele Est Pt Level 3 (97807) Diagnoses Pain management R52
== END 2022-12-19 12:32 | disposition home or self-care (01) ==
LOC: HO.HMGH 11:26
PROVIDERS: PCP Internal Medicine; Visit Provider Internal Medicine
DX: R52 Pain, unspecified (principal)
CPT/HCPCS: 99442

== ENCOUNTER 2023-02-04 10:36 | Outpatient (AMB) | payer MEDICARE, MEDICAID, SELFPAY ==
--- NOTE | 2023-02-04 10:33 | A.OFFPC_ITS ---
Intake Visit Reasons: 1 month f/u Allergies simvastatin [SIMVASTATIN] Allergy (Unknown, Verified 02/04/23 10:33) TOLD NEVER TO TAKE, Cramps in legs Gold shot Adverse Reaction (Unknown, Uncoded 02/04/23 10:33) Itching Medication List - Last Reconciled 02/04/23 by Meng Nunez MD [adult diapers As directed] apixaban (Eliquis) 10 mg (2 x 5 mg) PO BID betamethasone dipropionate 0.05% 1 appl topical DAILY cefuroxime axetil 500 mg PO BID 10 days colloidal oatmeal 2% (Gold Scott Medicated Eczema Relief) 1 appl topical BID disposable gloves 4 boxes per month docusate sodium 100 mg PO BID PRN 30 days etanercept (Enbrel) 50 mg subcut QWEEK ferrous sulfate 324 mg PO BIDWM [flushable wipes As directed] fluticasone propionate 50 mcg/actuation 2 sprays intranasal DAILY folic acid 1 mg PO DAILY furosemide 40 mg PO DAILY hydrocolloid dressing (DuoDERM CGF Adhesive Border Dressing) As directed hydrocortisone-aloe vera 1 % (Cortisone with Aloe) 1 appl topical BID lactulose 10 grams (15 mL) PO DAILY PRN levothyroxine 37.5 mcg (1/2 x 75 mcg) PO DAILY [LOW AIR LOSS MATTRESS As directed] naloxegol (Movantik) 12.5 mg PO QAM nystatin 1 appl topical BID omeprazole 20 mg PO DAILY oxycodone 10 mg (2 x 5 mg) PO Q6H PRN pads for bedsores As directed polyethylene glycol 3350 17 grams PO DAILY promethazine 25 mg PO BID PRN [rewashable bedpads pt needs the cotton, washable bedpads due to paper liner sticking to pt's skin] tamsulosin (Flomax) 0.4 mg PO DAILY trolamine salicylate 10% 1 appl See Protocol topical BID Tobacco use date assessed: 10/30/22 Fall risk assessment: 1 Fall in past year Last assessed Fall Risk: 02/04/23 Dental Screening Dental Screen Date: 02/04/23 Did you have a dental visit in the last 12 months?: No Did you have a dental problem in the last 6 months where you did not have access to dental care?: No Was dental information given to patient?: Patient has dentist HPI 1 month f/u HPI Details chronic pain syndrome; due for meds; compliant [facility] Medical History Acute deep vein thrombosis (DVT) Acute embolism and thrombosis of right femoral vein Acute thromboembolism of deep veins of lower extremity Arthritis of both knees Bacteremia Chronic arthritis Chronic kidney disease, stage 3 unspecified Chronic pain syndrome Constipation Esophageal reflux H/O gastric ulcer Hypothyroidism Morbid obesity Obstructive sleep apnea (adult) (pediatric) Other chronic pain Pain management Peripheral vascular disease Primary osteoarthritis, right shoulder Retention of urine Rheumatoid arthritis Rheumatoid arthritis Streptococcus, group b, as the cause of diseases classified elsewhere Unsteadiness on feet Weakness Surgical History H/O colonoscopy H/O esophagogastroduodenoscopy H/O rectal polypectomy History of bilateral cataract extraction Family History Father CAD (coronary artery disease) Diabetes Mother Diabetes Brother Diabetes Social History Household Members: None Housing: Apartment Alcohol intake: never Patient Tobacco Use Status: Never used Tobacco e-Cigarette/Vaping Use: Never Used Second Hand Smoke Exposure: No service: No Current occupational status: unemployed Cognitive needs: Yes (wheel chair) Hearing needs: No Vision needs: Yes (glasses) Questionnaire PHQ-9 Over the last 2 weeks, how often have you been bothered by any of the following problems? 1. Little interest or pleasure in doing things: not at all 2. Feeling down, depressed, or hopeless: not at all 3. Trouble falling or staying asleep, or sleeping too much: not at all 4. Feeling tired or having little energy: not at all 5. Poor appetite or overeating: not at all 6. Feeling bad about yourself - or that you are a failure or have let yourself or your family down: not at all 7. Trouble concentrating on things, such as reading the newspaper or watching television: not at all 8. Moving or speaking so slowly that other people could have noticed. Or the opposite - being so fidgety or restless that you have been moving around a lot more than usual: not at all 9. Thoughts that you would be better off or of hurting yourself in some way: not at all Total score: 0 Depression Screening Interpretation: Negative Depression Screening Done: Yes 44426 - PHQ-9 Billing: Yes Source: Developed by Drs. Rich Douglass, Diya Briones, Pavel Arita and colleagues, with an educational yaritza from [employer]. Thrive Questionnaire Date Thrive assessed: 11/18/22 AUDIT C Alcohol Use Questionnaire (AUDIT-C) Score Reviewed/Action Taken: Yes TACO-7 AMB Questionnaire TACO-7 Date TACO - 7 assessed: 06/28/22 Source: Developed by Drs. Rich Douglass, Diya Briones, Pavel Arita and colleagues, with an educational yaritza from [employer]. Review of Systems Const Denies chills, Denies headache(s) and Denies weight loss ENT Denies headache(s) Card Denies chest pain, Denies syncope, Denies irregular heart rhythm and Denies dyspnea Resp Denies chest congestion, Denies cough and Denies dyspnea GI Denies abdominal pain, Denies change in stool character, Denies nausea and Denies vomiting Musc Denies deformity and Denies joint swelling Neuro Denies syncope and Denies headache(s) Physical exam (Primary Care) Tobacco/Smoking Status: Tobacco use Status Tobacco use date assessed 10/30/22 02/04/23 10:35 Patient Tobacco Use Status Never used Tobacco 02/04/23 10:35 e-Cigarette/Vaping Use Never Used 02/04/23 10:35 PHQ-9: PHQ-9 Score PHQ-9: Total score 0 02/04/23 10:35 Depression Screening Interpretation: Negative Thrive Assessment: Date of Thrive Assessment Date Thrive assessed 11/18/22 02/04/23 10:35 Telehealth Telehealth Location of provider rendering services: practice address Location of patient: address on file Patient Identification confirmed using: Name, : Yes Telehealth method: voice only Patient verbally consented to treatment: Yes Patient verbally consented to billing insurance company: Yes Patient informed of any privacy concerns related to visit: Yes Minutes spent on Phone/Video with Pt.: 15 (telephone) Assessment and Plan Assessment & Plan (1) Pain management: Code(s): R52 - Pain, unspecified Plan: stable; same rx Medications: Changed From promethazine 12.5 mg (1/2 x 25 mg) PO BID PRN 180 tabs 8RF itch To promethazine 25 mg PO BID PRN 180 tabs 8RF itch Refilled oxycodone 10 mg (2 x 5 mg) PO Q6H PRN 240 tabs 0RF pain Coding Level of Care Code Tele Est Pt Level 3 (22181) Diagnoses Pain management R52
== END 2023-02-04 12:05 | disposition home or self-care (01) ==
LOC: HO.HMGH 10:36
PROVIDERS: PCP Internal Medicine; Visit Provider Internal Medicine
DX: R52 Pain, unspecified (principal)
CPT/HCPCS: 99442

== ENCOUNTER 2023-02-11 14:50 | Inpatient (IN) | payer MEDICARE, MEDICAID, SELFPAY ==
[2023-02-11] VITALS (9 sets, daily range): BP systolic 110–135; BP diastolic 65–79; PULSE 72–136; RESP 14–26; TEMP 36.4–36.8; O2SAT 91–95; BMI 47.1
--- NOTE | ~2023-02-11 | XR_ITS ---
EXAMINATION: XR CHEST CLINICAL INFORMATION: Shortness of breath. COMPARISON: 02/12/2023. TECHNIQUE: Frontal view of the chest was obtained. FINDINGS: Low volumes are low. The cardiomediastinal silhouette is stable. There is a right perihilar as well as bilateral lower lung field opacities. There are no pleural effusions. There is gaseous distention of the stomach. The bony structures and soft tissues are unremarkable. XR/XR chest 1V IMPRESSION: Right perihilar and bilateral lung base opacities most consistent with atelectasis and less likely infiltrates. Similar findings were present previously.
--- NOTE | ~2023-02-11 | XR_ITS ---
EXAMINATION: XR CHEST CLINICAL INFORMATION: Hypoxia respiratory failure COMPARISON: Chest x-ray 05/06/2020 and CTA chest 11/22/2022. TECHNIQUE: Frontal view of the chest was obtained. FINDINGS: The lungs are hypovolemic with right basilar atelectasis. Heart size and pulmonary vascularity is normal. There is mild spondylosis throughout dorsal spine. No aggressive lytic or sclerotic process seen. XR/XR chest 1V IMPRESSION: Hypovolemic lungs with right basilar atelectasis.
--- NOTE | ~2023-02-11 | CT_ITS ---
EXAMINATION: CT ABDOMEN AND PELVIS WITH CONTRAST CLINICAL INFORMATION: Epigastric/periumbilical pain COMPARISON: CT angiogram chest 11/22/2022 Renal ultrasound 10/09/2014 TECHNIQUE: Multidetector volumetric images were obtained from the superior aspect of the liver through the pubic symphysis following administration 58 mL of Omnipaque 350 intravenous contrast. Sagittal and coronal reformatted images were obtained on the technologist's workstation. Oral contrast: No This CT examination was performed using dose optimization techniques as appropriate, variously including the following: *Automated exposure control *Adjustment of mA and/or kV according to patient size (this includes techniques or standardized protocols for targeted exams where dose is matched to indication/reason for exam; i.e. extremities or head) *Use of iterative reconstruction technique DLP: 1661 mGy-cm FINDINGS: LUNG BASES: The visualized lung bases are unremarkable. LIVER, GALLBLADDER, AND BILIARY TREE: The liver is normal in size, shape, and attenuation. No focal hepatic lesion or biliary ductal dilatation is present. Gallbladder is distended with pericholecystic inflammatory change and air within the wall of the gallbladder. No gallstones are seen. On the 11/22/2022 CT scan, the partially visualized gallbladder appeared unremarkable. There is a crenated irregular-shaped rim calcified density seen just medial to the inferior gallbladder measuring 3.8 x 2.7 x 2.4 cm of uncertain significance. PANCREAS: 2 small adjacent cysts are seen in the tail of the pancreas measuring about 8 mm in size each. No pancreatic ductal dilatation is seen. No solid pancreatic masses. SPLEEN: Unremarkable. ADRENAL GLANDS: Unremarkable. KIDNEYS AND URETERS: The kidneys are normal in size, shape, and attenuation. No hydronephrosis, hydroureter, or calculi seen. No perinephric stranding. BLADDER: Unremarkable. GASTROINTESTINAL TRACT: The small and large bowel are unremarkable aside from colonic diverticulosis without diverticulitis. The appendix is unremarkable. ABDOMINAL WALL: No significant hernia is appreciated. LYMPH NODES: Normal. VASCULAR: Unremarkable. PELVIC VISCERA: The prostate and seminal vesicles are unremarkable. OSSEOUS STRUCTURES: Degenerative changes are seen throughout the spine. No bony destructive lesions. CT/CT abdomen pelvis w IV con IMPRESSION: 1. Findings are consistent with acute cholecystitis with air within the wall of the gallbladder and pericholecystic inflammatory change. 2. There is a crenated irregular-shaped rim calcified density seen just medial to the inferior gallbladder measuring 3.8 x 2.7 x 2.4 cm of uncertain significance. 3. Two small adjacent cysts in the tail of the pancreas. MRCP would be useful for further evaluation. 4. Colonic diverticulosis without diverticulitis. Fleischner guidelines were followed.
--- NOTE | ~2023-02-11 | XR_ITS ---
EXAMINATION: XR CHEST CLINICAL INFORMATION: Central line placement COMPARISON: Same day earlier TECHNIQUE: Frontal view of the chest was obtained. FINDINGS: The position of central line is deep most likely in right antrum. There is low lung volume bilaterally with atelectasis in the right lung base. XR/XR chest 1V IMPRESSION: Unsatisfactory position of right central venous line
--- NOTE | ~2023-02-11 | CT_ITS ---
EXAMINATION: CT ABDOMEN AND PELVIS WITHOUT CONTRAST CLINICAL INFORMATION: Question ileus or pericolic cystic hematoma COMPARISON: 02/13/2023, 02/11/2023 TECHNIQUE: Multidetector volumetric imaging was performed from the superior aspect of the liver through the pubic symphysis. Sagittal and coronal reformatted images were obtained on the technologist's workstation. This CT examination was performed using dose optimization techniques as appropriate, variously including the following: *Automated exposure control *Adjustment of mA and/or kV according to patient size (this includes techniques or standardized protocols for targeted exams where dose is matched to indication/reason for exam; i.e. extremities or head) *Use of iterative reconstruction technique DLP: 1184 mGy-cm FINDINGS: LUNG BASES: There are new since previous examinations bibasilar dense consolidation with air bronchogram most likely atelectasis and small pleural effusion LIVER, GALLBLADDER, AND BILIARY TREE: Liver is of low attenuation due to hepatic steatosis. Drain is noted in the gallbladder but in the right lobe of the liver, migrated from the gallbladder. Gallbladder is partially decompressed with air due to emphysematous cholecystitis. Seen previously. There is a calcified object below the gallbladder seen again, measured 3.6 x 2.6 cm and unchanged in shape position and size. Origin is unknown but not anatomical PANCREAS: Pancreas is atrophic with punctate calcifications, no evidence of pancreatitis SPLEEN: Unremarkable. ADRENAL GLANDS: Unremarkable. KIDNEYS AND URETERS: Both kidneys are small without hydroureteronephrosis or nephrolithiasis. BLADDER: Urinary bladder decompressed via Nguyen catheter. GASTROINTESTINAL TRACT: Nasogastric tube seen in the stomach. Bowel loops are not dilated. There is no significant ascites, there is mild amount of fluid seen in the lower abdomen/pelvis and no free air. Appendix not seen. ABDOMINAL WALL: No significant hernia is appreciated. LYMPH NODES: Normal. VASCULAR: Unremarkable. PELVIC VISCERA: Unremarkable. OSSEOUS STRUCTURES: There is diffuse osteopenia and multilevel degenerative changes in lumbar spine. Visualized musculature fatty replaced. CT/CT abdomen pelvis wo IV con IMPRESSION: Migrated gallbladder drain. Emphysematous cholecystitis. Bilateral dense consolidation with air bronchogram and small pleural effusion Fleischner guidelines were followed.
--- NOTE | ~2023-02-11 | CT_ITS ---
EXAMINATION: CT CHEST WITHOUT CONTRAST CLINICAL INFORMATION: Concern for pulmonary edema. COMPARISON: Chest x-ray February 13, 2023 TECHNIQUE: Multidetector volumetric CT imaging of the chest was done. Axial MIP volume rendering provided. Sagittal and coronal reformatted images were obtained. This CT examination was performed using dose optimization techniques as appropriate, variously including the following: *Automated exposure control *Adjustment of mA and/or kV according to patient size (this includes techniques or standardized protocols for targeted exams where dose is matched to indication/reason for exam; i.e. extremities or head) *Use of iterative reconstruction technique DLP: 4.6+5.2+294.8 mGy-cm FINDINGS: LUNGS: Lung volume is low. There is dependent atelectasis at both lung bases, right greater than left, with air bronchograms. No evidence of vascular congestion or pulmonary edema. MEDIASTINUM: No mediastinal mass or significant lymphadenopathy. Heart size is normal. No pericardial effusion. Small volume of scattered vascular calcifications of the aorta. No aneurysm of aorta. Enteric catheter passing down into stomach. Central venous catheter tip in superior vena cava at the cavoatrial junction. CORONARY ARTERY CALCIFICATION: Present. PLEURA: Small to moderate volume bilateral dependent pleural effusions. AXILLA: No lymphadenopathy. UPPER ABDOMEN: Unremarkable. OSSEOUS STRUCTURES: Multilevel degenerative spondylosis spine. CT/CT chest wo IV con IMPRESSION: 1. Low lung volume with dependent atelectasis at both lung bases, right greater than left. 2. Small to moderate volume bilateral pleural effusions. 3. No evidence of vascular congestion or pulmonary edema. Fleischner guidelines were followed.
--- NOTE | ~2023-02-11 | CT_ITS ---
PROCEDURE: CT-GUIDED DRAINAGE, GALLBLADDER CLINICAL INFORMATION: Acalculous acute cholecystitis. COMPARISON: CT scan of 02/11/2023 TECHNIQUE: CT fluoroscopic-guided cholecystostomy tube placement. This CT examination was performed using dose optimization techniques as appropriate, variously including the following: *Automated exposure control *Adjustment of mA and/or kV according to patient size (this includes techniques or standardized protocols for targeted exams where dose is matched to indication/reason for exam; i.e. extremities or head) *Use of iterative reconstruction technique DLP: 628 mGy-cm FINDINGS: Informed consent was obtained from the patient prior to the procedure. During this process, the procedure and potential alternatives were explained, along with the intended outcome and benefits. The risks of the procedure, as well as the risk of not doing the procedure, were discussed. The patient was given the opportunity to ask questions regarding the procedure and appeared competent to make medical decisions. A signed consent form which documents this discussion was placed in the medical record. On preliminary scanning, the gallbladder is distended with gas within its wall consistent with acute emphysematous cholecystitis. There is a small right pleural effusion. There is some biliary gas seen non-dependently within the left lobe of liver. Using CT fluoroscopic guidance from a right lateral approach, a 4 Swiss Yueh needle was directed into the gallbladder and sample of bile obtained. Guidewire was then coiled within the gallbladder and following fascial dilatation a 10.2 Swiss cholecystostomy tube was placed with cope loop being performed. 170 mL of black bile was then aspirated. Catheter was sutured in place. The catheter was placed to Corey-Sanford bulb suction drainage. Patient tolerated procedure. CT/CT drain peritoneum IMPRESSION: Placement of 10.2 Swiss cholecystostomy tube.
--- NOTE | ~2023-02-11 | CT_ITS ---
PROCEDURE: CT-GUIDED DRAINAGE, PERITONEAL ABSCESS CLINICAL INFORMATION: Reposition migrated cholecystostomy. Post cholecystostomy tube placement 02/13/2023. COMPARISON: Previous CT scans most recent 02/15/2023. TECHNIQUE: Procedure, risks and benefits including bleeding, infection, injury to the liver or gallbladder, possibility of repositioning the tube over the existing tract and new cystostomy tube placement were discussed with the patient's healthcare proxy by telephone and informed consent was obtained. The existing cholecystostomy tube was injected with a small volume of Omnipaque 300 under fluoroscopic guidance. Subsequently, limited axial images through the upper abdomen were performed. This demonstrated the tube was outside the gallbladder. The right upper quadrant was prepped and draped in the usual sterile fashion. The skin and soft tissues were anesthetized with 1% lidocaine plain. Using CT guidance and an AccuStick system, access to the gallbladder was obtained. Over an 0.018 wire, a 6.3 [place] pigtail catheter was positioned in the gallbladder. Approximately 90 mL of brown clear bilious fluid was removed. Specimen was sent for Gram stain and culture. Cholecystostomy tube was attached to external bag drainage. The patient received fentanyl 12.5 mcg intravenously during the procedure. Conscious sedation was provided by a registered nurse under my direct supervision with continuous hemodynamic monitoring. Total conscious sedation time/[id number] patient contact time was [address] examination was performed using dose optimization techniques as appropriate, variously including the following: *Automated exposure control *Adjustment of mA and/or kV according to patient size (this includes techniques or standardized protocols for targeted exams where dose is matched to indication/reason for exam; i.e. extremities or head) *Use of iterative reconstruction technique DLP: 450 mGy-cm FINDINGS: Initial imaging following injection of the cholecystostomy tube demonstrates contrast extravasation surrounding the liver. There is no contrast filling the gallbladder. Old cholecystostomy tube is unchanged in position with pigtail adjacent to the gallbladder wall. Gallbladder is been. There is a small amount of air seen in the gallbladder. Postprocedure/new cholecystostomy images demonstrate new cholecystostomy tube in the gallbladder and interval decrease in size in the gallbladder. CT/CT drain peritoneum IMPRESSION: CT-guided cholecystostomy tube placement.
--- NOTE | ~2023-02-11 | CT_ITS ---
EXAMINATION: CT HEAD WITHOUT CONTRAST CLINICAL INFORMATION: Encephalopathy COMPARISON: CT head from 05/06/2020 TECHNIQUE: Contiguous axial imaging was performed from the skull base to vertex without intravenous administration of contrast. This CT examination was performed using dose optimization techniques as appropriate, variously including the following: *Automated exposure control *Adjustment of mA and/or kV according to patient size (this includes techniques or standardized protocols for targeted exams where dose is matched to indication/reason for exam; i.e. extremities or head) *Use of iterative reconstruction technique DLP: 1169 mGy-cm FINDINGS: There is no evidence of acute intracranial hemorrhage or territorial infarction. Chronic white matter small vessel ischemic changes. No abnormal mass effect or midline shift is seen. Velazquez to white matter differentiation is well preserved. No extra-axial fluid collections are identified. The ventricles are normal in size. There is no abnormal attenuation within the brain parenchyma. The osseous structures and soft tissues are normal. The mastoid air cells and visualized portions of the paranasal sinuses are well aerated. Nasogastric tube partially visualized. CT/CT head/brain wo IV con IMPRESSION: 1. No acute intracranial pathology. 2. Chronic white matter small vessel ischemic changes.
--- NOTE | ~2023-02-11 | XR_ITS ---
EXAMINATION: XR CHEST CLINICAL INFORMATION: Perforation. COMPARISON: CT chest 02/19/2023. Chest radiograph 02/13/2023. TECHNIQUE: Frontal view of the chest was obtained. FINDINGS: Limited examination secondary to low lung volumes and patient body habitus. Right IJ CVC catheter tip projects at the level of the cavoatrial junction. Enteric tube courses into the abdomen terminating over the expected location of the stomach. Low lung volumes with right lower lobe segmental atelectasis. Small amount of bilateral pleural fluid. No pneumothorax. Normal heart size. No acute osseous findings. Changes from gangrenous cholecystitis with right upper quadrant drain are not well visualized. Limited evaluation of free air due to semiupright technique and patient body habitus. XR/XR chest 1V IMPRESSION: 1. Right lower lobe segmental atelectasis. 2. Small amount of bilateral pleural fluid. 3. Limited evaluation of free air due to patient body habitus and semiupright technique. If pneumoperitoneum is suspected, correlation with upright radiographic view or evaluation with CT abdomen is recommended.
--- NOTE | ~2023-02-11 | US_ITS ---
EXAMINATION: US ABDOMEN LIMITED CLINICAL INFORMATION: Abdominal pain-right upper quadrant pain Abnormal gallbladder on CT scan abdomen and pelvis 02/11/2023. COMPARISON: None available. TECHNIQUE: Real-time imaging of the gallbladder. Technically limited study due to body habitus and the inability of patient performed decubitus position FINDINGS: GALLBLADDER: The gallbladder is enlarged, at 14 cm in length and distended. There is mild wall thickening of 0.6 cm. There is no pericholecystic fluid. No gallstones are seen. The patient is tender during scanning of the gallbladder consistent with sonographic Gomez's sign. COMMON BILE DUCT: Not seen due to bowel gas. US/US abdomen limited IMPRESSION: Findings are consistent with acute cholecystitis.
--- NOTE | 2023-02-11 15:02 | ECG_ITS ---
Test Reason : ABD PAIN Blood Pressure : / mmHG Vent. Rate : 080 BPM Atrial Rate : 080 BPM P-R Int : 162 ms QRS Dur : 090 ms QT Int : 384 ms P-R-T Axes : 062 023 020 degrees QTc Int : 442 ms Normal sinus rhythm RSR' or QR pattern in V1 suggests right ventricular conduction delay Abnormal ECG When compared with ECG of 06-MAY-2020 12:35, QRS duration has increased Referred By: Radha Proctor Electronically Signed By:MITCHEL PATTON MD
--- NOTE | 2023-02-11 15:04 | ED_ITS ---
HPI - Abdominal Pain General Chief Complaint: Nausea/Vomiting/Diarrhea Stated Complaint: ABD PAIN, VOMITING Time Seen by Provider: 02/11/23 14:56 Source: patient and EMS Mode of arrival: EMS Limitations: no limitations History of Present Illness HPI narrative: Patient comes to the emergency room complaining of abdominal pain in the epigastric area since following morning, nausea vomiting and diarrhea . Patient denies any fever or chills, denies drinking alcohol. Denies URI or UTI symptoms. Patient denies chest pain or shortness of breath. Related Data Home Medications Medication Instructions Recorded Confirmed omeprazole 20 mg capsule,delayed 20 mg PO DAILY 05/04/20 02/04/23 release etanercept 50 mg/mL (1 mL) 50 mg subcut QWEEK 05/29/21 02/04/23 subcutaneous syringe (Enbrel) Previous Rx's Medication Instructions Recorded ferrous sulfate 324 mg (65 mg 324 mg PO BIDWM #60 tabs 05/11/20 iron) tablet,delayed release trolamine salicylate 10 % topical 1 appl topical BID #1 g 05/11/20 cream levothyroxine 75 mcg tablet 37.5 mcg (1/2 x 75 mcg) PO DAILY 07/12/21 #90 tabs naloxegol 12.5 mg tablet (Movantik) 12.5 mg PO QAM #90 tabs 07/12/21 tamsulosin 0.4 mg capsule (Flomax) 0.4 mg PO DAILY #90 caps 07/12/21 polyethylene glycol 3350 17 gram 17 g PO DAILY #30 ea 09/15/21 oral powder packet betamethasone dipropionate 0.05 % 1 appl topical DAILY #45 grams 06/27/22 topical ointment fluticasone propionate 50 2 spray intranasal DAILY #15.8 mL 09/18/22 mcg/actuation nasal spray,suspension hydrocolloid dressing 4 X 5 #5 ea 11/15/22 (DuoDERM CGF Adhesive Border Dressing) apixaban 5 mg tablet (Eliquis) 10 mg (2 x 5 mg) PO BID #20 tabs 11/24/22 cefuroxime axetil 500 mg tablet 500 mg PO BID 10 days #20 tabs 11/24/22 lactulose 10 gram/15 mL (15 mL) 10 g (15 mL) PO DAILY PRN 12/01/22 oral solution constipation #1,440 mL pads for bedsores 7 7/8 X 11 3/4 #50 ea 12/27/22 docusate sodium 100 mg capsule 100 mg PO BID PRN constipation 30 01/02/23 days #60 caps folic acid 1 mg tablet 1 mg PO DAILY #90 tabs 01/02/23 colloidal oatmeal 2 % topical 1 appl topical BID #155 grams 01/04/23 cream (Gold Scott Medicated Eczema Relief) furosemide 40 mg tablet 40 mg PO DAILY #30 tabs 01/04/23 hydrocortisone-aloe vera 1 % 1 appl topical BID #28.4 grams 01/04/23 topical cream (Cortisone with Aloe) nystatin 100,000 unit/gram topical 1 appl topical BID #60 grams 01/04/23 powder adult diapers #90 ea 01/07/23 flushable wipes #4 multiple units 01/07/23 rewashable bedpads #30 ea 01/07/23 disposable gloves #4 ea 01/08/23 LOW AIR LOSS MATTRESS #1 ea 02/01/23 oxycodone 5 mg tablet 10 mg (2 x 5 mg) PO Q6H PRN pain 02/04/23 #240 tabs promethazine 25 mg tablet 25 mg PO BID PRN itch #180 tabs 02/04/23 Allergies Allergy/AdvReac Type Severity Reaction Status Date / Time simvastatin [SIMVASTATIN] Allergy Unknown TOLD NEVER Verified 02/11/23 15:25 TO TAKE, Cramps in legs Gold shot AdvReac Unknown Itching Uncoded 02/04/23 10:33 Review of Systems Review of Systems Constitutional : No Weight loss, No Fever, No Chills, No Night Sweats, No Fatigue, No Malaise ENT/Mouth : No Hearing loss, No Ear Pain, No Nasal Congestion, No Sinus Pain, No Hoarseness, No sore throat, No Rhinorrhea, No Swallowing Difficulty Eyes: No Eye Pain, No Swelling, No Redness, No Foreign Body, No Discharge, No Vision Changes Cardiovascular : No Chest Pain, No SOB, No Dyspnea on Exertion, No Orthopnea, No Edema, No Palpitations Respiratory : No Cough, No Sputum, No Wheezing, No Smoke Exposure, No Dyspnea Gastrointestinal : Complaint of nausea vomiting and diarrhea, No Constipation, complaining of epigastric pain/periumbilical pain, No Hematochezia, No Melena Genitourinary : no irregular bleeding, No Dysuria, No Urinary Frequency, No Hematuria, No Urinary Incontinence, No Urgency, No Flank Pain, No Urinary Flow Changes, No Hesitancy Musculoskeletal : No joint pain, No Myalgias, No Joint Swelling Skin : Complaining of psoriasis flare-up Neuro : No Weakness, No Numbness, No Paresthesias, No Loss of Consciousness, No Dizziness, No Headache Psych : No Anxiety/Panic, No Depression, No SI/HI/AH/VH, No Social Issues, Heme/Lymph: No Bruising, No Bleeding,No Lymphadenopathy Endocrine : No Polyuria, No Polydipsia, No Temperature Intolerance [facility] Past Medical History Medical History Acute deep vein thrombosis (DVT) Acute embolism and thrombosis of right femoral vein Acute thromboembolism of deep veins of lower extremity Arthritis of both knees Bacteremia Chronic arthritis Chronic kidney disease, stage 3 unspecified Chronic pain syndrome Constipation Esophageal reflux H/O gastric ulcer Hypothyroidism Morbid obesity Obstructive sleep apnea (adult) (pediatric) Other chronic pain Pain management Peripheral vascular disease Primary osteoarthritis, right shoulder Retention of urine Rheumatoid arthritis Rheumatoid arthritis Streptococcus, group b, as the cause of diseases classified elsewhere Unsteadiness on feet Weakness Surgical History H/O colonoscopy H/O esophagogastroduodenoscopy H/O rectal polypectomy History of bilateral cataract extraction Family History Family History Father CAD (coronary artery disease) Diabetes Mother Diabetes Brother Diabetes Social History Social History Household Members: None Housing: Apartment Alcohol intake: never Patient Tobacco Use Status: Never used Tobacco Smoked in Last 30 Days: No e-Cigarette/Vaping Use: Never Used Second Hand Smoke Exposure: No Use of substances other than those prescribed or required for medical reasons: No Advance Directives: No Advance Directives Information Provided: No service: No Current occupational status: unemployed Cognitive needs: Yes (wheel chair) Hearing needs: No Vision needs: Yes (glasses) Physical Exam ED Vital Signs: Vital Signs - 24 hr 02/11/23 15:17 02/11/23 17:27 02/11/23 18:00 Temperature 97.5 F Pulse Rate 80 98 94 Respiratory Rate 20 18 20 Blood Pressure 123/75 113/77 129/76 Pulse Oximetry 94 93 94 Oxygen Delivery Method Room Air Room Air Room Air Oxygen Flow Rate 02/11/23 18:42 02/11/23 19:38 02/11/23 20:32 Temperature 98.1 F Pulse Rate 95 110 H 127 H Respiratory Rate 21 H 26 H Blood Pressure 135/79 130/65 Pulse Oximetry 94 95 95 Oxygen Delivery Method Nasal Cannula Nasal Cannula Nasal Cannula Oxygen Flow Rate 2 2 2 02/11/23 21:38 Temperature 98.2 F Pulse Rate 136 H Respiratory Rate 23 H Blood Pressure 115/70 Pulse Oximetry 93 Oxygen Delivery Method Nasal Cannula Oxygen Flow Rate 3 BMI result Body Mass Index 47.1 Const Other: Appearance: Alert. Oriented X3. No acute distress. Eyes: Pupils equal, round and reactive to light. ENT: Pharynx normal. Neck: Normal inspection. Neck supple. No lymph nodes noted. No crepitus CVS: Normal heart rate and rhythm. Pulses normal. Normal S1 and S2 Respiratory: No respiratory distress. Breath sounds normal. No Wheezing. No rales Abdomen: Soft slightly distended, tender to palpation in epigastric and periumbilical area, no guarding, no rebound Skin: Patient has several lesions of psoriasis in the abdomen Extremities: No lower extremity edema. No Lacerations. No Rash Neuro: Oriented X 3. No motor deficit. No sensory deficit. Moving all extremities. No slurred speech. CN 2 through 12 grossly intact Psych: calm, cooperative, normal affect Course Course Course Narrative: -all of patient's labs and imaging pending -patient receiving IV fluids, Zofran, morphine, loperamide Medical Decision Making Medical Decision Making MDM Narrative: -my interpretation of labs: patient's white blood cell count elevated. LFTs normal. -my interpretation of CT scan: Abnormal gallbladder, there seems to be gas present. -I discussed the patient with Dr. Ware, admission being requested by the medical team, surgery likely to be on February 13 to the patient's medical complexity Differential Diagnosis Differential Diagnoses: The differential diagnosis associated with the presentation includes (Pancreatitis, acute cholecystitis, small-bowel obstruction) Admission/Observation Consideration of admission/observation: Escalation of care including admission/observation considered Consult Healthcare Provider Management of the patient was discussed with: Hospitalist and Drawer In [employer] Lab Data MDM Lab Attestation statement: I reviewed the patient's lab results. 02/11/23 16:15 02/11/23 16:23 Labs: Lab Results 02/11/23 02/11/23 02/11/23 Range/Units 16:15 16:16 16:23 WBC 14.4 H (4.8-10.8) X10*3/uL RBC 4.37 L (4.60-5.80) X10*6/uL Hgb 13.2 L (14.0-18.0) g/dl Hct 40.9 L (42.0-52.0) % MCV 93.6 (80.0-98.0) fL MCH 30.2 (27.0-33.0) pg MCHC 32.3 (31.0-36.0) g/dl RDW 16.3 H (11.0-16.0) % Plt Count 240 (160-400) X10*3/uL MPV 10.8 (9.4-12.4) fL Immature Gran % (Auto) 1.2 H (0.0-0.4) % Neut % (Auto) 85.8 H (45-73) % Lymph % (Auto) 7.5 L (20-40) % [place] % (Auto) 4.6 (2-11) % Eos % (Auto) 0.7 (0-4) % Baso % (Auto) 0.2 (0-2) % Lymph # (Auto) 1.1 L (1.2-4.9) X10*3/uL [place] # (Auto) 0.7 (0.1-1.2) X10*3/uL Eos # (Auto) 0.1 (0.0-0.4) X10*3/uL Baso # (Auto) 0.0 (0.0-0.2) X10*3/uL Abs Immat Gran (auto) 0.17 H (0.00-0.03) X10*3/uL Absolute Neuts (auto) 12.4 H (2.0-8.3) x10*3/uL Absolute Nucleated RBC 0.000 (0.0-0.012) X10*3/uL Nucleated RBC % (auto) 0.0 (0.0-0.2) /100WBC Smear Tech's Comments VERIFIED Sodium 141 (135-145) mmol/L Potassium 4.5 (3.3-5.1) mmol/L Chloride 96 (96-108) mmol/L Carbon Dioxide 26 (22-29) mmol/L Anion Gap 24 H (12-20) BUN 30 H (9-16) mg/dL Creatinine 1.34 (0.5-1.4) mg/dL Estim Creat Clear Calc 64.4 Estimated GFR 52 POC Glucose (60-115) mg/dL Random Glucose 178 H (60-115) mg/dL Lactic Acid 1.7 (0.5-2.0) mmol/L Calcium 10.1 D (8.4-10.2) mg/dL Magnesium 2.3 (1.6-2.6) mg/dL Total Bilirubin 0.4 (0.0-1.0) mg/dL Direct Bilirubin 0.1 (0.0-0.5) mg/dL AST 20 (5-37) U/L ALT 14 (0-40) U/L Alkaline Phosphatase 57 (39-117) U/L Troponin I High Sens 4.0 (<3.5-35.0) ng/L Total Protein 7.7 (6.5-8.0) g/dL Albumin 3.4 L (3.5-5.0) g/dL Lipase 16 (8-78) U/L 02/11/ Range/Units 21:52 WBC (4.8-10.8) X10*3/uL RBC (4.60-5.80) X10*6/uL Hgb (14.0-18.0) g/dl Hct (42.0-52.0) % MCV (80.0-98.0) fL MCH (27.0-33.0) pg MCHC (31.0-36.0) g/dl RDW (11.0-16.0) % Plt Count (160-400) X10*3/uL MPV (9.4-12.4) fL Immature Gran % (Auto) (0.0-0.4) % Neut % (Auto) (45-73) % Lymph % (Auto) (20-40) % [place] % (Auto) (2-11) % Eos % (Auto) (0-4) % Baso % (Auto) (0-2) % Lymph # (Auto) (1.2-4.9) X10*3/uL [place] # (Auto) (0.1-1.2) X10*3/uL Eos # (Auto) (0.0-0.4) X10*3/uL Baso # (Auto) (0.0-0.2) X10*3/uL Abs Immat Gran (auto) (0.00-0.03) X10*3/uL Absolute Neuts (auto) (2.0-8.3) x10*3/uL Absolute Nucleated RBC (0.0-0.012) X10*3/uL Nucleated RBC % (auto) (0.0-0.2) /100WBC Smear Tech's Comments Sodium (135-145) mmol/L Potassium (3.3-5.1) mmol/L Chloride (96-108) mmol/L Carbon Dioxide (22-29) mmol/L Anion Gap (12-20) BUN (9-16) mg/dL Creatinine (0.5-1.4) mg/dL Estim Creat Clear Calc Estimated GFR POC Glucose 178 H (60-115) mg/dL Random Glucose (60-115) mg/dL Lactic Acid (0.5-2.0) mmol/L Calcium (8.4-10.2) mg/dL Magnesium (1.6-2.6) mg/dL Total Bilirubin (0.0-1.0) mg/dL Direct Bilirubin (0.0-0.5) mg/dL AST (5-37) U/L ALT (0-40) U/L Alkaline Phosphatase (39-117) U/L Troponin I High Sens (<3.5-35.0) ng/L Total Protein (6.5-8.0) g/dL Albumin (3.5-5.0) g/dL Lipase (8-78) U/L Independent Interpretation I performed an independent interpretation of an: CT Scan Radiology Impression Discussion of test interpretation with radiology: I have reviewed the radiologist's reading. Radiologist Impression: FINDINGS: LUNG BASES: The visualized lung bases are unremarkable. LIVER, GALLBLADDER, AND BILIARY TREE: The liver is normal in size, shape, and attenuation. No focal hepatic lesion or biliary ductal dilatation is present. Gallbladder is distended with pericholecystic inflammatory change and air within the wall of the gallbladder. No gallstones are seen. On the 11/22/2022 CT scan, the partially visualized gallbladder appeared unremarkable. There is a crenated irregular-shaped rim calcified density seen just medial to the inferior gallbladder measuring 3.8 x 2.7 x 2.4 cm of uncertain significance. PANCREAS: 2 small adjacent cysts are seen in the tail of the pancreas measuring about 8 mm in size each. No pancreatic ductal dilatation is seen. No solid pancreatic masses. SPLEEN: Unremarkable. ADRENAL GLANDS: Unremarkable. KIDNEYS AND URETERS: The kidneys are normal in size, shape, and attenuation. No hydronephrosis, hydroureter, or calculi seen. No perinephric stranding. BLADDER: Unremarkable. GASTROINTESTINAL TRACT: The small and large bowel are unremarkable aside from colonic diverticulosis without diverticulitis. The appendix is unremarkable. ABDOMINAL WALL: No significant hernia is appreciated. LYMPH NODES: Normal. VASCULAR: Unremarkable. PELVIC VISCERA: The prostate and seminal vesicles are unremarkable. OSSEOUS STRUCTURES: Degenerative changes are seen throughout the spine. No bony destructive lesions. CT/CT abdomen pelvis w IV con IMPRESSION: 1. Findings are consistent with acute cholecystitis with air within the wall of the gallbladder and pericholecystic inflammatory change. 2. There is a crenated irregular-shaped rim calcified density seen just medial to the inferior gallbladder measuring 3.8 x 2.7 x 2.4 cm of uncertain significance. 3. Two small adjacent cysts in the tail of the pancreas. MRCP would be useful for further evaluation. 4. Colonic diverticulosis without diverticulitis. Fleischner guidelines were followed. Medications Administered Discontinued Medications Generic Name Dose Route Start Last Admin Trade Name Freq PRN Reason Stop Dose Admin Hydromorphone HCl 1 mg 02/11/23 18:40 02/11/23 19:35 Hydromorphone Hcl 1 Mg/Ml Syringe IVPUSH 02/11/23 18:41 1 mg ONCE ONE Administration Protocol Hydromorphone HCl 1 mg 02/11/23 21:10 02/11/23 22:14 Hydromorphone Hcl 1 Mg/Ml Syringe IVPUSH 02/11/23 21:11 1 mg ONCE ONE Administration Protocol Sodium Chloride 1,000 mls @ 999 mls/hr 02/11/23 15:02 02/11/23 18:22 Ns IVCONT 02/11/23 16:02 Infused .Q1H1M ONE Infusion Piperacillin Sod/Tazobactam 50 mls @ 100 mls/hr 02/11/23 21:11 02/11/23 22:13 Sod 3.375 gm/ Sodium Chloride IV 02/11/23 21:40 100 mls/hr ONCE ONE Administration Sodium Chloride 1,000 mls @ 999 mls/hr 02/11/23 21:11 02/11/23 22:14 Ns IVCONT 02/11/23 22:11 999 mls/hr .Q1H1M ONE Administration Loperamide HCl 4 mg 02/11/23 15:02 02/11/23 16:33 Loperamide Hcl 2 Mg Capsule PO 02/11/23 15:03 4 mg ONCE ONE Administration Morphine Sulfate 4 mg 02/11/23 15:02 02/11/23 16:32 Morphine Sulfate 4 Mg/Ml Cartridge IVPUSH 02/11/23 15:03 4 mg ONCE ONE Administration Protocol Morphine Sulfate 4 mg 02/11/23 18:07 02/11/23 18:21 Morphine Sulfate 4 Mg/Ml Cartridge IVPUSH 02/11/23 18:08 4 mg ONCE ONE Administration Protocol Ondansetron HCl 4 mg 02/11/23 15:02 02/11/23 16:32 Ondansetron Hcl 4 Mg/2 Ml Vial IVPUSH 02/11/23 15:03 4 mg ONCE ONE Administration Critical Care Time Critical Care Time Critical Care Time: Yes Total Critical Care Time: 60 Attestation: I have personally provided critical care time. Time includes review of lab data, radiology results, discussion with consultants, and monitoring for potential decompensation. Intervention performed as documented. Discharge Plan Discharge Clinical Impression: Acute cholecystitis Patient Disposition: Admitted As Inpatient
[2023-02-11 16:24] LABS: Imm Gran Abs Auto 0.17 X10*3/uL (0.00-0.03); Monocytes Absolute Auto 0.7 X10*3/uL (0.1-1.2); PLT CLUMP 1; Red Cell Distribution Width 16.3 % (11.0-16.0); SCAN SMEAR FLAG 1
[2023-02-11 16:26] LABS: Basophils Percent Auto 0.2 % (0-2); Eosinophils Absolute Auto 0.1 X10*3/uL (0.0-0.4); Eosinophils Percent Auto 0.7 % (0-4); Hematocrit 40.9 % (42.0-52.0); Hemoglobin 13.2 g/dl (14.0-18.0); Imm Gran Pct Auto 1.2 % (0.0-0.4); Lymphocytes Absolute Auto 1.1 X10*3/uL (1.2-4.9); Lymphocytes Percent Auto 7.5 % (20-40); MANUAL DIFF FLAG SCAN; Mean Corpuscular HGB Conc 32.3 g/dl (31.0-36.0); Mean Corpuscular Hemoglobin 30.2 pg (27.0-33.0); Mean Corpuscular Volume 93.6 fL (80.0-98.0); Mean Platelet Volume 10.8 fL (9.4-12.4); Monocytes Percent Auto 4.6 % (2-11); Neutrophils Absolute Auto 12.4 x10*3/uL (2.0-8.3); Neutrophils Percent Auto 85.8 % (45-73); Red Blood Count 4.37 X10*6/uL (4.60-5.80)
[2023-02-11 16:32] LABS: Lactic Acid 1.7 mmol/L (0.5-2.0)
[2023-02-11] MEDS: ondansetron HCL 4 MG/2 ML VIAL IVPUSH (16:32)
[2023-02-11] MEDS: Morphine Sulfate 4 MG/ML CARTRIDGE IVPUSH ×2 (16:32→18:21)
[2023-02-11] MEDS: Loperamide HCl 2 MG CAPSULE 4 MG PO (16:33)
[2023-02-11] MEDS: 0.9 % Sodium Chloride 1,000 ML 999 ML IVCONT ×2 (16:33→22:14)
[2023-02-11 16:45] LABS: Alanine Aminotransferase 14 U/L (0-40); Albumin Level 3.4 g/dL (3.5-5.0); Alkaline Phosphatase 57 U/L (39-117); Anion Gap 24 (12-20); Aspartate Amino Transferase 20 U/L (5-37); Bilirubin Direct 0.1 mg/dL (0.0-0.5); Bilirubin Total 0.4 mg/dL (0.0-1.0); Blood Urea Nitrogen 30 mg/dL (9-16); Calcium 10.1 mg/dL (8.4-10.2); Carbon Dioxide 26 mmol/L (22-29); Chloride 96 mmol/L (96-108); Creatinine Clr Calc Pharmacy 64.4; Estimated Glomerular Filt Rate 52; Glucose Random 178 mg/dL (60-115); Lipase 16 U/L (8-78); Magnesium 2.3 mg/dL (1.6-2.6); Potassium 4.5 mmol/L (3.3-5.1); Sodium 141 mmol/L (135-145); Total Protein 7.7 g/dL (6.5-8.0)
[2023-02-11 16:46] LABS: Platelet Count 240 X10*3/uL (160-400); SLIDE REVIEW VERIFIED; White Blood Count 14.4 X10*3/uL (4.8-10.8)
--- NOTE | 2023-02-11 17:43 | PC.NURSE ---
iv meds and fluids given late because the pt is a difficult stick. 20g iv inserted via ultrasound guidance by ROLANDA Ambrosio. pt tolerated well. vss.
--- NOTE | 2023-02-11 19:01 | PC.NURSE ---
iv in génesis infiltrated, removed. warm compress applied.
[2023-02-11] MEDS: HYDROmorphone HCl 1 MG/ML SYRINGE IVPUSH ×2 (19:35→22:14)
--- NOTE | 2023-02-11 19:36 | PC.NURSE ---
Addendum entered by Darío Moran 02/11/23 20:32: Dr. Proctor aware. Addendum entered by Darío Moran 02/11/23 20:17: pt had returned from ct scan placed on heart monitor sinus tach 110 bpm. sats 95% on 2L NC. pt requested extra blanket. lights dimmed. call skinner within reach. Original Note: pt had multiple iv attempts during previous shift; dilaudid administered IM L. deltoid per Dr. Proctor verbal order.
--- NOTE | 2023-02-11 20:59 | PC.NURSE ---
pt rang for RN; pt requested pain medication; re-educated Dr. Proctor aware awaiting ct scan results. offered nonpharmalogical interventions as pt had previously refused. pt requests pillow for back/repositioning; delegated to Danae THORNTON.
--- NOTE | 2023-02-11 21:39 | PC.NURSE ---
Addendum entered by Darío Moran 02/11/23 21:54: poc 178. Original Note: pt reports feeling dizzy/ room spinning. vitals as documented. pt wanted hob lowered. Dr. Proctor aware. unable to administer ivf/abx as pt does not have iv access; Dr. Proctor also aware.
--- NOTE | 2023-02-11 22:04 | PC.NURSE ---
Catalina Richards RN able to obtain iv access 22g R. upper arm/shoulder area. iv flushing with no signs of swelling/redness/infiltration.
[2023-02-11 22:06] LABS: Glucose, Whole Blood 178 mg/dL (60-115)
[2023-02-11] MEDS: Piperacillin Sodium/Tazobactam 3.375 GM in 0.9 % Sodium Chloride 50 ML IV (22:13)
--- NOTE | 2023-02-11 23:20 | PC.NURSE ---
report given to julian ng rn.
[2023-02-12] VITALS (17 sets, daily range): BP systolic 83–100; BP diastolic 40–64; PULSE 70–130; RESP 10–28; TEMP 35.9–36.6; O2SAT 72–96; BMI 46.6
--- NOTE | 2023-02-12 | ECG_ITS ---
Test Reason : ekg baseline not good Blood Pressure : / mmHG Vent. Rate : 104 BPM Atrial Rate : 104 BPM P-R Int : 152 ms QRS Dur : 102 ms QT Int : 350 ms P-R-T Axes : 000 024 069 degrees QTc Int : 460 ms Sinus tachycardia Low voltage QRS Nonspecific ST abnormality Abnormal ECG When compared with ECG of 11-FEB-2023 16:30, ST more depressed Anterolateral leads Referred By: Cesar Dillard Electronically Signed By:MITCHEL PATTON MD
[2023-02-12] MEDS: Acetaminophen 1,000 MG/100 ML PIGGYBACK 400 MG IV ×4 (00:43→23:42)
[2023-02-12] MEDS: Dextrose 5 % and Lactated Ring 1,000 ML 125 ML IVCONT ×3 (00:52→22:33)
[2023-02-12] MEDS: 0.9 % Sodium Chloride Flush 3 ML SYRINGE IVFLUSH ×3 (00:53→14:54)
[2023-02-12] MEDS: 0.9 % Sodium Chloride 1,000 ML 999 ML IV ×3 (02:37→05:59)
[2023-02-12] MEDS: Piperacillin Sodium/Tazobactam 3.375 GM in 0.9 % Sodium Chloride 50 ML IV ×4 (02:48→20:31)
--- NOTE | 2023-02-12 04:09 | P.CONIM_ITS ---
History of Present Illness Data of Consult Service Date: 02/12/23 Primary Care Provider: Unknown Physician HPI Reason for consult: abd pain A 72 years old male with pmh of DVT on eliquis, hypothyroid, arthritis, GERD who presernts with abdominal pain and found to have acute cholecystitis. admitted to the surgical team. the patients reports 1 days of RUQ pain. associated with NVD, No chest pain, palpitations, SOB, fever, chills or urinary symptoms. Hospitalist team asket to eval for medical problems Review of Systems 2 Review of Systems: No fever, chills or weakness No chest pain, palpitation No shortness of breath or coughing RUQ abdominal pain, with nausea or vomiting & diarrhea No urinary symptoms No any rash or wounds PMFSH Medical History Hypothyroidism Rheumatoid arthritis Chronic kidney disease, stage 3 unspecified Bacteremia Chronic pain syndrome Obstructive sleep apnea (adult) (pediatric) Morbid obesity Constipation Esophageal reflux Other chronic pain Acute thromboembolism of deep veins of lower extremity Peripheral vascular disease Retention of urine Rheumatoid arthritis Arthritis of both knees Acute embolism and thrombosis of right femoral vein Weakness Unsteadiness on feet Streptococcus, group b, as the cause of diseases classified elsewhere Primary osteoarthritis, right shoulder H/O gastric ulcer Acute deep vein thrombosis (DVT) Chronic arthritis Pain management Family History Father CAD (coronary artery disease) Diabetes Mother Diabetes Brother Diabetes Surgical History H/O esophagogastroduodenoscopy H/O colonoscopy H/O rectal polypectomy History of bilateral cataract extraction Social History Household Members: None Housing: Apartment Do you presently have visiting nurse or other home services: Yes Alcohol intake: never Patient Tobacco Use Status: Never used Tobacco Smoked in Last 30 Days: No e-Cigarette/Vaping Use: Never Used Second Hand Smoke Exposure: No Use of substances other than those prescribed or required for medical reasons: No Have you been hit, kicked, punched, or otherwise hurt by someone within the past year? If so, by whom?: No Do you feel safe in your current relationship?: No Is there a partner from a previous relationship who is making you feel unsafe now?: No Are you made to feel afraid or neglected: No Advance Directives: No Advance Directives Information Provided: No Do you have thoughts of harming others: None Do you have a plan to hurt others: No Plan Recently lost weight without trying: No How much weight loss: Unsure Eating poorly because of decreased appetite: No Nutrition screen score: 2 Nutrition Risks: No Nutritional Risk Poor oral hygiene: No service: No Current occupational status: unemployed Cognitive needs: Yes (wheel chair) Hearing needs: No Vision needs: Yes (glasses) Meds Allergies Allergy/AdvReac Type Severity Reaction Status Date / Time simvastatin [SIMVASTATIN] Allergy Unknown TOLD NEVER Verified 02/11/23 15:25 TO TAKE, Cramps in legs Gold shot AdvReac Unknown Itching Uncoded 02/04/23 10:33 Active Medications: Current Medications Hydromorphone HCl (Hydromorphone Hcl 0.5 Mg/0.5 Ml Syringe) 0.5 mg IVPUSH Q3H PRN; Protocol PRN Reason: Pain, Severe (Pain Scale 7-10) Acetaminophen (Ofirmev) 1,000 mg in 100 mls @ 400 mls/hr IV Q6H COUNTS INCLUDE 234 BEDS AT THE [facility] Last Infusion: 02/12/23 01:06 Dose: Infused Dextrose/Lactated Ringer's (D5lr) 1,000 mls @ 125 mls/hr IVCONT .Q8H COUNTS INCLUDE 234 BEDS AT THE [facility] Last Admin: 02/12/23 00:52 Dose: 125 mls/hr Piperacillin Sod/Tazobactam (Sod 3.375 gm/ Sodium Chloride) 50 mls @ 100 mls/hr IV Q6H COUNTS INCLUDE 234 BEDS AT THE [facility] Last Infusion: 02/12/23 03:48 Dose: Infused Ondansetron HCl (Ondansetron Hcl 4 Mg/2 Ml Vial) 4 mg IVPUSH QID PRN PRN Reason: Nausea Oxycodone HCl (Oxycodone Hcl Immed Release 5 Mg Tablet) 10 mg PO Q6H PRN PRN Reason: Pain, Moderate(Pain Scale 4-6) Sodium Chloride (0.9 % Sodium Chloride Flush 3 Ml Syringe) 3 ml IVFLUSH QSHIFT COUNTS INCLUDE 234 BEDS AT THE [facility] Last Admin: 02/12/23 00:53 Dose: 3 ml Zolpidem Tartrate (Zolpidem Tartrate 5 Mg Tablet) 5 mg PO BEDTIME PRN PRN Reason: Insomnia Home Medications Medication Instructions Recorded Confirmed Last Taken Type omeprazole 20 mg capsule,delayed 20 mg PO DAILY 05/04/20 02/04/23 05/06/20 History release etanercept 50 mg/mL (1 mL) 50 mg subcut QWEEK 05/29/21 02/04/23 Unknown History subcutaneous syringe (Enbrel) Physical Exam 2 Vital Signs and Narrative: Vital Signs: Last Vital Signs Temp 96.9 F 02/12/23 00:13 Pulse 111 H 02/12/23 03:49 Resp 20 02/12/23 03:49 BP 83/44 L 02/12/23 03:49 Pulse Ox 95 02/12/23 03:49 O2 Del Method Nasal Cannula 02/12/23 03:49 O2 Flow Rate 4 02/12/23 03:49 BMI result Body Mass Index 46.6 Const: Other: Constitutional : Awake, interactive, morbidly obese, not in distress Neck : Normal inspection, Supple Cardiovascular : RRR, no JVP, no lower extremity edema Respiratory : good bilateral air entry, no crackles, wheezes or rhonchi Gastrointestinal: soft, lax, Normal bowel sounds, RUQ tenderness Skin : Warm, Dry Neurological : Alert & oriented to self and place, No focal deficit Results Labs 02/11/23 16:15 02/11/23 16:23 Labs: Laboratory Results - last 24 hr 02/11/23 02/11/23 02/11/23 16:15 16:16 16:23 MCV 93.6 MCH 30.2 MCHC 32.3 RDW 16.3 H Plt Count 240 MPV 10.8 Immature Gran % (Auto) 1.2 H Neut % (Auto) 85.8 H Lymph % (Auto) 7.5 L Cooper % (Auto) 4.6 Eos % (Auto) 0.7 Baso % (Auto) 0.2 Lymph # (Auto) 1.1 L Cooper # (Auto) 0.7 Eos # (Auto) 0.1 Baso # (Auto) 0.0 Abs Immat Gran (auto) 0.17 H Absolute Neuts (auto) 12.4 H Absolute Nucleated RBC 0.000 Nucleated RBC % (auto) 0.0 Smear Tech's Comments VERIFIED Anion Gap 24 H Estim Creat Clear Calc 64.4 Estimated GFR 52 POC Glucose Random Glucose 178 H Lactic Acid 1.7 Calcium 10.1 D Magnesium 2.3 Total Bilirubin 0.4 Direct Bilirubin 0.1 AST 20 ALT 14 Alkaline Phosphatase 57 Total Protein 7.7 Albumin 3.4 L Lipase 16 02/11/23 21:52 MCV MCH MCHC RDW Plt Count MPV Immature Gran % (Auto) Neut % (Auto) Lymph % (Auto) Cooper % (Auto) Eos % (Auto) Baso % (Auto) Lymph # (Auto) Cooper # (Auto) Eos # (Auto) Baso # (Auto) Abs Immat Gran (auto) Absolute Neuts (auto) Absolute Nucleated RBC Nucleated RBC % (auto) Smear Tech's Comments Anion Gap Estim Creat Clear Calc Estimated GFR POC Glucose 178 H Random Glucose Lactic Acid Calcium Magnesium Total Bilirubin Direct Bilirubin AST ALT Alkaline Phosphatase Total Protein Albumin Lipase Imaging Radiologist's Impressions: Impressions Abdomen/Pelvis CT 02/11/23 19:29 IMPRESSION: 1. Findings are consistent with acute cholecystitis with air within the wall of the gallbladder and pericholecystic inflammatory change. 2. There is a crenated irregular-shaped rim calcified density seen just medial to the inferior gallbladder measuring 3.8 x 2.7 x 2.4 cm of uncertain significance. 3. Two small adjacent cysts in the tail of the pancreas. MRCP would be useful for further evaluation. 4. Colonic diverticulosis without diverticulitis. Fleischner guidelines were followed. Assessment and Plan (1) Acute cholecystitis: Status: Acute (2) Sepsis: Status: Acute (3) Hypotension: Status: Acute Plan A 72 years old male with pmh of DVT on eliquis, hypothyroid, arthritis, GERD who presernts with abdominal pain and found to have acute cholecystitis. Sepsis 2/2 Acute cholecystitis IV Abx IVF surgery team following Hypotension 2/2 sepsis Give more boluses; total 4L as 30ml\kg give Albumin watch for fluid overload Hold BP meds for now Hx VTE on Eliquis Hold Eliquis while waiting for surgery use full dose Lovenox Thanks for the consult. will continue to follow the patient with you. Time Spent With Patient Time: Total time managing care of this patient today ____ minutes.
[2023-02-12] MEDS: Albumin Human 25 % 100 ML IV ×4 (04:30→12:13)
[2023-02-12 06:16] LABS: Hematocrit 42.6 % (42.0-52.0); Hemoglobin 12.9 g/dl (14.0-18.0); Mean Corpuscular HGB Conc 30.3 g/dl (31.0-36.0); Mean Corpuscular Hemoglobin 30.4 pg (27.0-33.0); Mean Corpuscular Volume 100.2 fL (80.0-98.0); Mean Platelet Volume 9.5 fL (9.4-12.4); NRBC Pct Auto 0.2 /100WBC (0.0-0.2); Platelet Count 263 X10*3/uL (160-400); Red Blood Count 4.25 X10*6/uL (4.60-5.80); Red Cell Distribution Width 16.9 % (11.0-16.0)
[2023-02-12 06:38] LABS: Alanine Aminotransferase 21 U/L (0-40); Albumin Level 3.4 g/dL (3.5-5.0); Alkaline Phosphatase 51 U/L (39-117); Anion Gap 20 (12-20); Aspartate Amino Transferase 28 U/L (5-37); Bilirubin Direct 0.5 mg/dL (0.0-0.5); Bilirubin Total 0.9 mg/dL (0.0-1.0); Blood Urea Nitrogen 27 mg/dL (9-16); Calcium 9.3 mg/dL (8.4-10.2); Carbon Dioxide 21 mmol/L (22-29); Chloride 106 mmol/L (96-108); Creatinine Clr Calc Pharmacy 49.3; Estimated Glomerular Filt Rate 39; Glucose Random 131 mg/dL (60-115); Lactic Acid 4.4 mmol/L (0.5-2.0); Potassium 3.7 mmol/L (3.3-5.1); Sodium 143 mmol/L (135-145); Total Protein 6.6 g/dL (6.5-8.0)
[2023-02-12 07:06] LABS: Band Neutrophils Percent 28 % (3-5); Lymphocytes Absolute Manual 0.7 X10*3/uL (1.2-4.9); Lymphocytes Percent Manual 6 % (20-40); Macrocytosis 1+ (5-14) /OIF; Neutrophils Absolute Manual 11.3 X10*3/uL (2.0-8.3); Neutrophils Percent Manual 66 % (45-73); RBC Morphology NOTED
[2023-02-12 07:07] LABS: Acanthocytes 1+ (0-2) /OIF; Polychromasia 1+ (0-2) /OIF
[2023-02-12 07:08] LABS: Toxic Vacuolation PRESENT
[2023-02-12 07:09] LABS: Appearance Urine Clear; Color Urine Yellow; Glucose Urine UA Negative (Negative); Leukocyte Esterase Urine Trace (Negative); Nitrite Urine Negative (Negative); PH 6.5 (5.0-9.0); Specific Gravity - Urine >= 1.030 (1.005-1.025); UMIC TRIGGER UACC YES; Urine Blood Negative (Negative); Urine Ketones Trace mg/dL (Negative); Urine Protein Trace mg/dL (Neg-Trace)
[2023-02-12 07:09] LABS: Platelet Estimate NORMAL (NORMAL); Platelet Morphology Comment NORMAL
[2023-02-12 07:10] LABS: Nucleated Red Blood Cells 1 /100WBC (0-0)
[2023-02-12 07:12] LABS: Bacteria Urine None Seen (None Seen); Hyaline Casts Urine 0-2 /LPF (0-2); RBC Urine 0-2 /HPF (0-2); Squamous Epithelial Cell Urine 0-2 /HPF (0-2); WBC Urine 0-5 /HPF (0-5)
--- NOTE | 2023-02-12 07:22 | PC.NURSE ---
Addendum entered by Nikkie Bradshaw RN 02/12/23 07:41: Pt agreed and had the flu shot on the left .Deltoid Original Note: Pt arrived to rm [id number] at 0000 from the ED per stretcher, pt slid to bed by staffs, pt is alert and oriented, c/o diffused abdl pain, pt is slightly tachypneic and c/o SOB , LS has scatterd fine crackles, O2 sats =72% at 2L/min via NC, Tachycardic at 120s-130s, had a hard time getting a BP reading on all extremities, by machine, first appreciated a BP by machine at 90/40, tried to rechecked manually but unable to get one, Dr. Rodriguez was updated, pt hooked to Cardiac tele and cont O2 monitoring, O2 increased to 4L/min viaNC, pt repositioned, O2 came up to low 90s after, scheduled Tylenol IV given for pain with good effect, pt was able to sleep at intervals, tried to do doppler BP and came at 40/ pt has no LOC changes, MD and Nursing Sup made aware Dr. Rodriguez came to the bedside, ordered NSS 1L bolus, BP rechecked after and still machine has no reading, doppler BP still at 40,no mental status change, also attempted to get BP on all extremities but no luck, Jennifer Charlton was made aware, ordered 2 more liters of NSS bolus, and 2 bottles of Albumin, BP was rechecked at 0624= 93/51 HR 101, labs drawn this AM, Lactic acid came critical at 4.4, Jennifer Charlton was made aware, pt verbalized feeling better compared to last night, pt voided about 100mls only all night, bladder scan done = 31 ml.
--- NOTE | 2023-02-12 07:33 | PM.HPGS ---
History of Present Illness History of Present Illness Date of Service: 02/12/23 Chief complaint: ABD PAIN, VOMITING Narrative: Rich Nance is a 72 year old male presenting with complaints of abdominal pain in the epigastrium which began at approximately 04:00 on 02/11/2023. He denies a previous history of similar pain. By 16:00 the pain became so severe that he decided to present to the emergency department. He reports nausea and anorexia and denies any sick contacts. He reports severe arthritis of the knees and is basically bed-bound at home. He has home health aides which come twice daily to assist in his care. He subsequently presented to the emergency department for further evaluation. He was noted to have tenderness in the right upper quadrant with a Gomez sign. Laboratories revealed an elevated WBC. Subsequent CT abdomen and pelvis revealed a distended gallbladder with possible calcification within the gallbladder which was new from a previous study. He was admitted to the surgical service for management of acute cholecystitis. During the night the patient became hypotensive and was evaluated by the hospitalist team. Patient has history of deep venous thrombosis and is currently on Eliquis. He also has a history of peripheral vascular disease. Review of Systems Review of Systems: Yes all other systems are reviewed and are negative Constitutional: Constitutional: Reports anorexia, Reports fatigue, Reports lethargy and Reports weakness Cardiovascular: Cardiovascular: Reports rapid heart rate, Denies irregular heart rhythm and Reports dyspnea Respiratory: Respiratory: Denies chest congestion, Denies cough and Reports dyspnea Gastrointestinal: Gastrointestinal: Reports as per HPI, Reports abdominal pain, Reports fecal incontinence, Reports nausea and Reports vomiting Integumentary/Breasts: Skin/Breast: Reports swelling Neurologic: Reports weakness Endocrine: Endocrine: Reports fatigue PMF Past Medical History Medical History Hypothyroidism Rheumatoid arthritis Chronic kidney disease, stage 3 unspecified Bacteremia Chronic pain syndrome Obstructive sleep apnea (adult) (pediatric) Morbid obesity Constipation Esophageal reflux Other chronic pain Acute thromboembolism of deep veins of lower extremity Peripheral vascular disease Retention of urine Rheumatoid arthritis Arthritis of both knees Acute embolism and thrombosis of right femoral vein Weakness Unsteadiness on feet Streptococcus, group b, as the cause of diseases classified elsewhere Primary osteoarthritis, right shoulder H/O gastric ulcer Acute deep vein thrombosis (DVT) Chronic arthritis Pain management Family History Family History Father CAD (coronary artery disease) Diabetes Mother Diabetes Brother Diabetes Surgical History Surgical History H/O esophagogastroduodenoscopy H/O colonoscopy H/O rectal polypectomy History of bilateral cataract extraction Social History Social History Household Members: None Housing: Apartment Do you presently have visiting nurse or other home services: Yes Alcohol intake: never Patient Tobacco Use Status: Never used Tobacco Smoked in Last 30 Days: No e-Cigarette/Vaping Use: Never Used Second Hand Smoke Exposure: No Use of substances other than those prescribed or required for medical reasons: No Have you been hit, kicked, punched, or otherwise hurt by someone within the past year? If so, by whom?: No Do you feel safe in your current relationship?: No Is there a partner from a previous relationship who is making you feel unsafe now?: No Are you made to feel afraid or neglected: No Advance Directives: No Advance Directives Information Provided: No Do you have thoughts of harming others: None Do you have a plan to hurt others: No Plan Recently lost weight without trying: No How much weight loss: Unsure Eating poorly because of decreased appetite: No Nutrition screen score: 2 Nutrition Risks: No Nutritional Risk Poor oral hygiene: No service: No Current occupational status: unemployed Cognitive needs: Yes (wheel chair) Hearing needs: No Vision needs: Yes (glasses) Meds Allergies Allergy/AdvReac Type Severity Reaction Status Date / Time simvastatin [SIMVASTATIN] Allergy Unknown TOLD NEVER Verified 02/11/23 15:25 TO TAKE, Cramps in legs Gold shot AdvReac Unknown Itching Uncoded 02/04/23 10:33 Active Medications: Current Medications Enoxaparin Sodium (Enoxaparin Sodium 150 Mg/Ml Syringe) 135 mg 1 mg/kg (135 mg) SUBCUT Q24H EZIO Hydromorphone HCl (Hydromorphone Hcl 0.5 Mg/0.5 Ml Syringe) 0.5 mg IVPUSH Q3H PRN; Protocol PRN Reason: Pain, Severe (Pain Scale 7-10) Acetaminophen (Ofirmev) 1,000 mg in 100 mls @ 400 mls/hr IV Q6H [facility] Last Admin: 02/12/23 05:37 Dose: Not Given Dextrose/Lactated Ringer's (D5lr) 1,000 mls @ 125 mls/hr IVCONT .Q8H [facility] Last Admin: 02/12/23 00:52 Dose: 125 mls/hr Piperacillin Sod/Tazobactam (Sod 3.375 gm/ Sodium Chloride) 50 mls @ 100 mls/hr IV Q6H [facility] Last Infusion: 02/12/23 03:48 Dose: Infused Ondansetron HCl (Ondansetron Hcl 4 Mg/2 Ml Vial) 4 mg IVPUSH QID PRN PRN Reason: Nausea Oxycodone HCl (Oxycodone Hcl Immed Release 5 Mg Tablet) 10 mg PO Q6H PRN PRN Reason: Pain, Moderate(Pain Scale 4-6) Sodium Chloride (0.9 % Sodium Chloride Flush 3 Ml Syringe) 3 ml IVFLUSH QSHIFT [facility] Last Admin: 02/12/23 00:53 Dose: 3 ml Zolpidem Tartrate (Zolpidem Tartrate 5 Mg Tablet) 5 mg PO BEDTIME PRN PRN Reason: Insomnia Home Medications Medication Instructions Recorded Confirmed Last Taken Type omeprazole 20 mg capsule,delayed 20 mg PO DAILY 05/04/20 02/04/23 05/06/20 History release etanercept 50 mg/mL (1 mL) 50 mg subcut QWEEK 05/29/21 02/04/23 Unknown History subcutaneous syringe (Enbrel) Physical Exam Vital Signs: Vital Signs: Last Vital Signs Temp 96.8 F 02/12/23 07:21 Pulse 100 02/12/23 07:21 Resp 18 02/12/23 07:21 BP 95/50 L 02/12/23 07:21 Pulse Ox 92 02/12/23 07:21 O2 Del Method Nasal Cannula 02/12/23 07:21 O2 Flow Rate 3 02/12/23 07:21 BMI result Body Mass Index 46.6 Const: General: alert, awake, ill appearing and tired appearing Nutritional Appearance: obese Orientation/consciousness: patient oriented x3 Limitations: other limitations (Nonambulatory) HEENT: Head: Yes normocephalic and Yes atraumatic Ears: hearing grossly normal bilaterally Eyes: Sclerae: sclerae normal EOM: EOMs intact bilaterally Resp: Effort & Inspection: no audible wheezes, no cough and tachypneic Auscultation: diminished lung sounds Cardio: Rate: tachycardic Rhythm: regular rhythm GI: Inspection: Yes Abdominal panniculus present and Yes obesity Palpation (GI): Soft to palpation, Tenderness to palpation present (GI) in the epigastrum, in the RUQ and Gomez's sign positive; with no rebound tenderness, no guarding and not rigid Percussion: Yes normal to percussion Auscultation: normal bowel sounds Rectal Exam - Male: Yes deferred Neuro: General: patient oriented x3 Extrem: General: Yes edema Results Results Labs: Short CBC 02/11/23 02/12/23 Range/Units 16:15 06:07 WBC 14.4 H 12.0 H (4.8-10.8) X10*3/uL Hgb 13.2 L 12.9 L (14.0-18.0) g/dl Hct 40.9 L 42.6 (42.0-52.0) % Plt Count 240 263 (160-400) X10*3/uL BMP 02/11/23 02/12/23 16:23 06:07 Sodium 141 143 Potassium 4.5 3.7 Chloride 96 106 Carbon Dioxide 26 21 L BUN 30 H 27 H Creatinine 1.34 1.74 H Calcium 10.1 D 9.3 D Liver Function 02/11/23 02/12/23 Range/Units 16:23 06:07 Total Bilirubin 0.4 0.9 (0.0-1.0) mg/dL Direct Bilirubin 0.1 0.5 (0.0-0.5) mg/dL AST 20 28 (5-37) U/L ALT 14 21 (0-40) U/L Alkaline Phosphatase 57 51 (39-117) U/L Albumin 3.4 L 3.4 L (3.5-5.0) g/dL Urine 02/12/23 Range/Units Unknown Urine Color Yellow Urine Appearance Clear Urine pH 6.5 (5.0-9.0) Ur Specific [place] >= 1.030 H (1.005-1.025) Urine Protein Trace (Neg-Trace) mg/dL Urine Glucose (UA) Negative (Negative) mg/dL Abdomen CT scan report/results: image reviewed CT scan - pelvis: image reviewed EKG: report reviewed (preliminary report: Normal sinus rhythm Septal infarct , age undetermined Abnormal ECG When compared with ECG of 06-MAY-2020 12:35, Septal infarct is now Present) Assessment and Plan (1) Septal myocardial infarction: Status: Acute EKG changes noted on study yesterday, await final reading. Hospitalist consultation requested. (2) Hypotension: Qualifiers: Hypotension type: unspecified hypotension type Qualified Code(s): I95.9 - Hypotension, unspecified Status: Acute Hypotension possibly related to medications verses sepsis. 2 L fluid bolus administered. Lactate normal. (3) Sepsis: Qualifiers: Sepsis type: sepsis due to unspecified organism Sepsis acute organ dysfunction status: unspecified Qualified Code(s): A41.9 - Sepsis, unspecified organism Status: Acute Possibly related to acute cholecystitis, workup in progress. Fluid boluses administered. Patient on IV antibiotics. (4) Acute cholecystitis: Status: Acute Distended gallbladder with possible gallstones noted on CT abdomen and pelvis. Further workup with ultrasound this morning requested. A.m. laboratories pending. (5) Venous thromboembolism: Status: Acute Patient previously on Eliquis. Held pending surgery. Lovenox ordered by hospitalist team. (6) Pain management: Status: Acute Patient with chronic pain normally on oxycodone, will continue perioperatively. Time Spent With Patient Time: Total time managing care of this patient today ____ minutes. Quality Stroke Does the patient have a stroke diagnosis?: No VTE Prior VTE?: Yes VTE Risk Level:: Surgical - high VTE Device Contraindication: N/A - Device Ordered VTE Drug Contraindication: N/A - Med Ordered Procedures Date of Service Date of Service: 02/12/23
[2023-02-12 08:12] LABS: Reflex Lactate? Lactic Acid Added
[2023-02-12] MEDS: Enoxaparin Sodium 150 MG/ML SYRINGE 135 MG SUBCUT (09:19)
[2023-02-12 09:46] LABS: Venous Blood Gas Refer to POC result
--- NOTE | 2023-02-12 09:46 | MHC.CM.PN ---
pt lives alone has 7 days a week servies thru [facility]/ 8:30 to 1 and 6 to 8 and every 2 week rn visits .pt will need amb ride home dc plam home with resumption of servies
[2023-02-12 09:47] LABS: VBG Base Excess -3.6 mmol/L; VBG HCO3 25 mmol/L (22-26); VBG pCO2 62 mmHg; VBG pH 7.21 (7.32-7.43); VBG pO2 39 mmHg
--- NOTE | 2023-02-12 10:15 | P.CONCC_ITS ---
History of Present Illness Data of Consult Service Date: 02/12/23 Primary Care Provider: Unknown Physician HPI Reason for consult: Level of care 72-year-old gentleman underlying morbid obesity, DVT on Eliquis, obstructive sleep, rheumatoid arthritis, hypothyroidism admitted 02/11/2023 for acute cholecystitis. Patient covered empirically with Zosyn and has been evaluated by General surgery with plan for possible cholecystostomy versus cholecystectomy. Level of care evaluation has been requested. Exam patient is somnolent after recent opioid for pain control, but arousable, and answering appropriately. Blood pressure 105/50, pulse 100's. Maintaining normal oximetry on 3 L via nasal cannula. Patient has received date also of crystalloid and also is set to receive albumin. Review of Systems 2 Constitutional: Constitutional: Reports fatigue and Reports malaise Cardiovascular: Cardiovascular: Denies chest pain, Denies syncope and Denies dyspnea on exertion Respiratory: Respiratory: Denies cough, Denies excessive phlegm production and Denies dyspnea on exertion Gastrointestinal: Gastrointestinal: Reports abdominal pain ( right upper quadrant) and Reports nausea Genitourinary: Genitourinary: Denies difficulty urinating Integumentary/Breasts: Skin/Breast: Reports rash Neurologic: Denies syncope and Denies seizure-like activity Endocrine: Endocrine: Reports fatigue PMFSH Past Medical History Medical History Hypothyroidism Rheumatoid arthritis Chronic kidney disease, stage 3 unspecified Bacteremia Chronic pain syndrome Obstructive sleep apnea (adult) (pediatric) Morbid obesity Constipation Esophageal reflux Other chronic pain Acute thromboembolism of deep veins of lower extremity Peripheral vascular disease Retention of urine Rheumatoid arthritis Arthritis of both knees Acute embolism and thrombosis of right femoral vein Weakness Unsteadiness on feet Streptococcus, group b, as the cause of diseases classified elsewhere Primary osteoarthritis, right shoulder H/O gastric ulcer Acute deep vein thrombosis (DVT) Chronic arthritis Pain management Family History Family History Father CAD (coronary artery disease) Diabetes Mother Diabetes Brother Diabetes Surgical History Surgical History H/O esophagogastroduodenoscopy H/O colonoscopy H/O rectal polypectomy History of bilateral cataract extraction Social History Social History Household Members: None Housing: Apartment Do you presently have visiting nurse or other home services: Yes Alcohol intake: never Patient Tobacco Use Status: Never used Tobacco Smoked in Last 30 Days: No e-Cigarette/Vaping Use: Never Used Second Hand Smoke Exposure: No Use of substances other than those prescribed or required for medical reasons: No Have you been hit, kicked, punched, or otherwise hurt by someone within the past year? If so, by whom?: No Do you feel safe in your current relationship?: No Is there a partner from a previous relationship who is making you feel unsafe now?: No Are you made to feel afraid or neglected: No Advance Directives: No Advance Directives Information Provided: No Do you have thoughts of harming others: None Do you have a plan to hurt others: No Plan Recently lost weight without trying: No How much weight loss: Unsure Eating poorly because of decreased appetite: No Nutrition screen score: 2 Nutrition Risks: No Nutritional Risk Poor oral hygiene: No service: No Current occupational status: unemployed Cognitive needs: Yes (wheel chair) Hearing needs: No Vision needs: Yes (glasses) Meds Allergies Allergy/AdvReac Type Severity Reaction Status Date / Time simvastatin [SIMVASTATIN] Allergy Unknown TOLD NEVER Verified 02/11/23 15:25 TO TAKE, Cramps in legs Gold shot AdvReac Unknown Itching Uncoded 02/04/23 10:33 Active Medications: Current Medications Albuterol/Ipratropium (Albuterol/Iprat 2.5/0.5mg 3 Ml Ampul.Neb) 3 ml INHALE RQ4H WHILE AWAKE [facility] Albuterol/Ipratropium (Albuterol/Iprat 2.5/0.5mg 3 Ml Ampul.Neb) 3 ml INHALE RQ4H WHILE AWAKE PRN PRN Reason: Shortness of Breath Enoxaparin Sodium (Enoxaparin Sodium 150 Mg/Ml Syringe) 135 mg 1 mg/kg (135 mg) SUBCUT Q24H [facility] Last Admin: 02/12/23 09:19 Dose: 135 mg Hydromorphone HCl (Hydromorphone Hcl 0.5 Mg/0.5 Ml Syringe) 0.5 mg IVPUSH Q3H PRN; Protocol PRN Reason: Pain, Severe (Pain Scale 7-10) Acetaminophen (Ofirmev) 1,000 mg in 100 mls @ 400 mls/hr IV Q6H [facility] Last Infusion: 02/12/23 08:29 Dose: Infused Dextrose/Lactated Ringer's (D5lr) 1,000 mls @ 125 mls/hr IVCONT .Q8H [facility] Last Admin: 02/12/23 00:52 Dose: 125 mls/hr Piperacillin Sod/Tazobactam (Sod 3.375 gm/ Sodium Chloride) 50 mls @ 100 mls/hr IV Q6H [facility] Last Infusion: 02/12/23 08:58 Dose: Infused Ondansetron HCl (Ondansetron Hcl 4 Mg/2 Ml Vial) 4 mg IVPUSH QID PRN PRN Reason: Nausea Oxycodone HCl (Oxycodone Hcl Immed Release 5 Mg Tablet) 10 mg PO Q6H PRN PRN Reason: Pain, Moderate(Pain Scale 4-6) Sodium Chloride (0.9 % Sodium Chloride Flush 3 Ml Syringe) 3 ml IVFLUSH QSHIFT [facility] Last Admin: 02/12/23 09:26 Dose: 3 ml Zolpidem Tartrate (Zolpidem Tartrate 5 Mg Tablet) 5 mg PO BEDTIME PRN PRN Reason: Insomnia Home Medications Medication Instructions Recorded Confirmed Last Taken Type omeprazole 20 mg capsule,delayed 20 mg PO DAILY 05/04/20 02/04/23 05/06/20 History release levothyroxine 75 mcg tablet 75 mcg PO DAILY 02/12/23 Unknown History Physical Exam 2 Vital Signs: Vital Signs: Last Vital Signs Temp 96.8 F 02/12/23 07:21 Pulse 100 02/12/23 07:21 Resp 18 02/12/23 07:21 BP 95/50 L 02/12/23 07:21 Pulse Ox 92 02/12/23 07:21 O2 Del Method Nasal Cannula 02/12/23 07:21 O2 Flow Rate 3 02/12/23 07:21 BMI result Body Mass Index 46.6 Const: General: no acute distress, alert and awake Nutritional Appearance: obese Eyes: Sclerae: sclerae normal EOM: EOMs intact bilaterally Neck: Neck: Yes no lymphadenopathy, Yes trachea midline and Yes supple Resp: Effort & Inspection: normal respiratory effort and no respiratory distress Auscultation: clear to auscultation bilaterally Cardio: Rate: tachycardic Rhythm: regular rhythm Heart sounds: no gallops, no murmurs and no rubs GI: Palpation (GI): Soft to palpation, Tenderness to palpation present (GI) ( right upper quadrant) and no guarding Auscultation: normal bowel sounds Extrem: General: No clubbing, No cyanosis and Yes edema ( trace bilateral) Results Labs 02/12/23 06:07 02/12/23 06:07 Labs: Short CBC 02/11/23 02/12/23 Range/Units 16:15 06:07 WBC 14.4 H 12.0 H (4.8-10.8) X10*3/uL Hgb 13.2 L 12.9 L (14.0-18.0) g/dl Hct 40.9 L 42.6 (42.0-52.0) % Plt Count 240 263 (160-400) X10*3/uL BMP 02/11/23 02/12/23 16:23 06:07 Sodium 141 143 Potassium 4.5 3.7 Chloride 96 106 Carbon Dioxide 26 21 L BUN 30 H 27 H Creatinine 1.34 1.74 H Calcium 10.1 D 9.3 D Liver Function 02/11/23 02/12/23 Range/Units 16:23 06:07 Total Bilirubin 0.4 0.9 (0.0-1.0) mg/dL Direct Bilirubin 0.1 0.5 (0.0-0.5) mg/dL AST 20 28 (5-37) U/L ALT 14 21 (0-40) U/L Alkaline Phosphatase 57 51 (39-117) U/L Albumin 3.4 L 3.4 L (3.5-5.0) g/dL Urine 02/12/23 Range/Units Unknown Urine Color Yellow Urine Appearance Clear Urine pH 6.5 (5.0-9.0) Ur Specific [place] >= 1.030 H (1.005-1.025) Urine Protein Trace (Neg-Trace) mg/dL Urine Glucose (UA) Negative (Negative) mg/dL Assessment and Plan (1) Acute cholecystitis: Status: Acute Plan Impression: 72-year-old gentleman admitted with acute cholecystitis sepsis. Now On broad-spectrum antibiotics and hemodynamically stable. evaluated by General surgery and is planned for cholecystostomy. recommendations: Consider additional colloidal support with albumin. At this time does not require intensive care unit level of care. Please notify for re- evaluation, if patient's condition changes. Case discussed with Dr. Dillard. Time Spent With Patient Time: Total time managing care of this patient today ____ minutes.
--- NOTE | 2023-02-12 10:37 | PHA.MEDREC ---
Pharmacy Consult ? Medication Reconciliation Pharmacy has completed the medication reconciliation.Spoke to patient and he was able to confirm his home medications when I listed them for him. Used claim history and conversation with patient to complete med rec.
[2023-02-12 10:59] LABS: Reflex Lactate? 2 Y
[2023-02-12 12:11] LABS: ~Lactic Acid-LAB USE ONLY 5.1 mmol/L (0.5-2.0)
[2023-02-12] MEDS: 0.9 % Sodium Chloride 1,000 ML 999 ML IVCONT ×2 (12:39→13:58)
--- NOTE | 2023-02-12 13:13 | HO.WOUND ---
Addendum entered by Marcia Hager RN 02/12/23 13:27: Note submitted prior to completion. Recommendations: 1. Turn and Reposition every 2 hours and as needed for patient comfort consider use of wedges available in the storeroom. 2. Off Load all bony prominences with use of pillows, wedges and heel boots. 3. Monitor for incontinence and moisture control. 4. Provide adequate and supplemental nutrition. 5. Consider Bariatric Bed. 6. Skin Folds - Cleanse with routine bathing - apply Antifungal powder per provider order - twice a day. Consider Interdry sheets to translocate moisture away from skin folds - available in Storeroom. 7. Buttocks - Off Load Pressure - Cleanse with PH balance spray, pat dry. ?Apply thin layer of Triad to wound bed - only pat and dab no scrub and rub when soiling occurs. Reapply thin layer PRN after each episode of incontinence. Original Note: Wound Consult: Initial 72yr old male admitted to [facility] on?02/11/23 22:50 - See progress notes and H&P for detailed history. Arrival to bedside pt is agreeable to assessment and photo documentation. She reports the red scaling rash he has has been diagnosed with Psoriasis - however he has not yet had treatement as he is waiting to be seen by Dermatology on March 22. Per Pt statement and appearance suspect Psoriasis - not documented on chart - provider to consider topical steroid for symptom relief. Recommend pt to followup with Sales Representative scheduled for March 22. Bilateral Lower Legs - Venous Dermatitis intact tissue - lotion or Vaseline to be applied to moisturize dry skin. Right Abdominal Skin Fold - treat as Fungal Dermatitis - observe for improvement Etiology: Fungal dermatitis (Provider to consider Inverse Psoriasis) Wound Bed: Mirrored red edges within skin folds with advancing satellite lesions noted Drainage / Odor: yeast odor noted Edges: ?Mirrored and advancing [place] wound: ? Intact Goals of Treatment: ? Topical treatment with Antifungal powder twice daily Bilateral Buttocks Etiology: MASD -IAD (Moisture Associated Skin Damage - Incontinence Associated Dermatitis Wound Bed: Not consistent with pressure presentation - irregular shaped red maroon partial thickness wound bed Drainage / Odor: serosang scant drainage noted on bed linen Edges: ? Irregular [place] wound: ? red blacnhable tissue - Psorisis exacerbation vs fungal dermatitis No Induration, No Fluctuance Goals of Treatment: ? Treat buttocks with barrier cream to protect from moisture and friciton Recommendations: 1. Turn and Reposition every 2 hours and as needed for patient comfort consider use of wedges available in the storeroom. 2. Off Load all bony prominences with use of pillows, wedges and heel boots. 3. Monitor for incontinence and moisture control. 4. Provide adequate and supplemental nutrition. 5. Order or Continue low air loss mattress. 6. Maintain blood glucose levels per Providers orders. 7. Re-consult wound care Nurse for wound deterioration or wound changes.
[2023-02-12 13:25] LABS: ABG Base Excess -2.6 mmol/L; ABG HCO3 24 mmol/L (22-26); ABG pCO2 50 mmHg (32-45); ABG pH 7.29 (7.35-7.45); ABG pO2 69 mmHg (83-108)
[2023-02-12 13:53] LABS: INTERNATIONAL NORM RATIO 1.5 (0.9-1.1); Prothrombin Time 18.4 SEC (11.1-13.3)
[2023-02-12 13:56] LABS: Partial Thromboplastin Time 37.9 SEC (26.0-36.4)
--- NOTE | 2023-02-12 14:08 | PM.EVENT ---
Event Note Date of Service: 02/12/23 Event Note: Patient ordered for a cholecystostomy tube. Chart and imaging reviewed. Patient received therapeutic lovenox this morning. Discussed with Dr. Ware. Will need to hold evening dose tonight and tomorrow morning dose. Andrea ORANTES Interventional Radiology Time Spent With Patient Time: Total time managing care of this patient today ____ minutes.
[2023-02-12] MEDS: Albuterol/Iprat 2.5/0.5MG 3 ML AMPUL.NEB INHALE ×2 (15:14→19:00)
[2023-02-12 15:39] LABS: Appearance Urine Clear; Color Urine Yellow; Glucose Urine UA Negative (Negative); Leukocyte Esterase Urine Negative (Negative); Nitrite Urine Negative (Negative); PH 6.5 (5.0-9.0); UMIC TRIGGER UA YES; Urine Blood Trace (Negative); Urine Ketones Trace mg/dL (Negative); Urine Protein Trace mg/dL (Neg-Trace)
[2023-02-12 15:58] LABS: Bacteria Urine None Seen (None Seen); Squamous Epithelial Cell Urine 0-2 /HPF (0-2); WBC Urine 0-5 /HPF (0-5)
[2023-02-12] MEDS: Nystatin Powder 15 GM BOTTLE 1 APPL TOPICAL ×2 (16:19→20:38)
--- NOTE | 2023-02-12 16:28 | P.PNIM_ITS ---
Subjective Subjective Date of Service: 02/12/23 Interval History: Acute cholecystitis,sepsis Review of Systems patient says sob somewhat improving abd pain also some improving no fever Physical Exam 2 Vital Signs: Vital Signs: Last Vital Signs Temp 97.8 F 02/12/23 14:40 Pulse 105 H 02/12/23 15:17 Resp 20 02/12/23 15:17 BP 90/53 L 02/12/23 14:40 Pulse Ox 91 L 02/12/23 14:40 O2 Del Method Nasal Cannula 02/12/23 14:40 O2 Flow Rate 3 02/12/23 14:40 BMI result Body Mass Index 46.6 Appearance: Alert.? Oriented X3.? cvs: rrr, [id number] . res: cair entry fair ,dimished at bases ,no rales has few rhonchii scattered abd: no rebound or guarding ,nt, bs present. ext pulses present , no cyanosis,no edema . neuro: axo3 , nonfocal. Objective Data Active Medications Albuterol/Ipratropium (Albuterol/Iprat 2.5/0.5mg 3 Ml Ampul.Neb) 3 ml INHALE RQ4H WHILE AWAKE [facility] Last Admin: 02/12/23 15:14 Dose: 3 ml Documented By: FRANCESCO Albuterol/Ipratropium (Albuterol/Iprat 2.5/0.5mg 3 Ml Ampul.Neb) 3 ml INHALE RQ4H WHILE AWAKE PRN PRN Reason: Shortness of Breath Enoxaparin Sodium (Enoxaparin Sodium 150 Mg/Ml Syringe) 135 mg 1 mg/kg (135 mg) SUBCUT Q24H [facility] Last Admin: 02/12/23 09:19 Dose: 135 mg Documented By: MILENA Hydromorphone HCl (Hydromorphone Hcl 0.5 Mg/0.5 Ml Syringe) 0.5 mg IVPUSH Q3H PRN; Protocol PRN Reason: Pain, Severe (Pain Scale 7-10) Acetaminophen (Ofirmev) 1,000 mg in 100 mls @ 400 mls/hr IV Q6H [facility] Last Infusion: 02/12/23 12:39 Dose: Infused Documented By: MILENA Dextrose/Lactated Ringer's (D5lr) 1,000 mls @ 125 mls/hr IVCONT .Q8H [facility] Last Admin: 02/12/23 14:59 Dose: Not Given Documented By: SOLE Non-Admin Reason: IV Running Piperacillin Sod/Tazobactam (Sod 3.375 gm/ Sodium Chloride) 50 mls @ 100 mls/hr IV Q6H [facility] Last Infusion: 02/12/23 15:30 Dose: Infused Documented By: SOLE Nystatin (Nystatin Powder 15 Gm Bottle) 1 appl TOPICAL TID [facility]; Protocol Last Admin: 02/12/23 16:19 Dose: 1 appl Documented By: BESSIE Ondansetron HCl (Ondansetron Hcl 4 Mg/2 Ml Vial) 4 mg IVPUSH QID PRN PRN Reason: Nausea Oxycodone HCl (Oxycodone Hcl Immed Release 5 Mg Tablet) 10 mg PO Q6H PRN PRN Reason: Pain, Moderate(Pain Scale 4-6) Sodium Chloride (0.9 % Sodium Chloride Flush 3 Ml Syringe) 3 ml IVFLUSH QSHIFT [facility] Last Admin: 02/12/23 14:54 Dose: 3 ml Documented By: BESSIE Zolpidem Tartrate (Zolpidem Tartrate 5 Mg Tablet) 5 mg PO BEDTIME PRN PRN Reason: Insomnia Labs 02/12/23 06:07 02/12/23 06:07 Labs: Laboratory Results - last 24 hr 02/11/23 02/11/23 02/11/23 16:15 16:16 16:23 MCV 93.6 MCH 30.2 MCHC 32.3 RDW 16.3 H Plt Count 240 MPV 10.8 Immature Gran % (Auto) 1.2 H Neut % (Auto) 85.8 H Lymph % (Auto) 7.[address] [place] % (Auto) 4.6 Eos % (Auto) 0.7 Baso % (Auto) 0.2 Lymph # (Auto) 1.[address] [place] # (Auto) 0.7 Eos # (Auto) 0.1 Baso # (Auto) 0.0 Abs Immat Gran (auto) 0.17 H Absolute Neuts (auto) 12.4 H Absolute Nucleated RBC 0.000 Nucleated RBC % (auto) 0.0 Neutrophils % (Manual) Band Neutrophils % Lymphocytes % (Manual) Abs Neuts (Manual) Lymphocytes # (Manual) Nucleated RBCs Toxic Vacuolation Platelet Estimate Plt Morphology Comment RBC Morphology Polychromasia Macrocytosis Acanthocytes (Spur) Smear Tech's Comments VERIFIED PT INR APTT O2 Saturation ABG pH at Pt Temp ABG pCO2 at Pt Temp ABG pO2 at Pt Temp ABG HCO3 ABG Base Excess (Actual) VBG pH VBG pCO2 VBG pO2 VBG HCO3 VBG O2 Saturation VBG Base Excess Anion Gap 24 H Estim Creat Clear Calc 64.4 Estimated GFR 52 POC Glucose Random Glucose 178 H Lactic Acid 1.7 Lactic Acid F/U @ 2Hr Lactic Acid F/U @ 4Hr Calcium 10.1 D Magnesium 2.3 Total Bilirubin 0.4 Direct Bilirubin 0.1 AST 20 ALT 14 Alkaline Phosphatase 57 Total Protein 7.7 Albumin 3.4 L Lipase 16 Urine Color Urine Appearance Urine pH Ur Specific [place] Urine Protein Urine Glucose (UA) Urine Ketones Urine Blood Urine Nitrite Ur Leukocyte Esterase Urine RBC Urine WBC Ur Squamous Epith Cells Urine Bacteria Hyaline Casts 02/11/23 02/12/23 02/12/23 21:52 06:07 08:54 MCV 100.2 H D MCH 30.4 MCHC 30.3 L RDW 16.9 H Plt Count 263 MPV 9.5 Immature Gran % (Auto) Cancelled Neut % (Auto) Cancelled Lymph % (Auto) Cancelled [place] % (Auto) Cancelled Eos % (Auto) Cancelled Baso % (Auto) Cancelled Lymph # (Auto) Cancelled [place] # (Auto) Cancelled Eos # (Auto) Cancelled Baso # (Auto) Cancelled Abs Immat Gran (auto) Cancelled Absolute Neuts (auto) Cancelled Absolute Nucleated RBC 0.020 H Nucleated RBC % (auto) 0.2 Neutrophils % (Manual) 66 Band Neutrophils % 28 H Lymphocytes % (Manual) 6 L Abs Neuts (Manual) 11.3 H Lymphocytes # (Manual) 0.7 L Nucleated RBCs 1 H Toxic Vacuolation PRESENT Platelet Estimate NORMAL Plt Morphology Comment NORMAL RBC Morphology NOTED Polychromasia 1+ (0-2) Macrocytosis 1+ (5-14) Acanthocytes (Spur) 1+ (0-2) Smear Tech's Comments PT INR APTT O2 Saturation ABG pH at Pt Temp ABG pCO2 at Pt Temp ABG pO2 at Pt Temp ABG HCO3 ABG Base Excess (Actual) VBG pH VBG pCO2 VBG pO2 VBG HCO3 VBG O2 Saturation VBG Base Excess Anion Gap 20 Estim Creat Clear Calc 49.3 Estimated GFR 39 POC Glucose 178 H Random Glucose 131 H Lactic Acid 4.4 H* Lactic Acid F/U @ 2Hr 5.0 H* Lactic Acid F/U @ 4Hr Calcium 9.3 D Magnesium Total Bilirubin 0.9 Direct Bilirubin 0.5 AST 28 ALT 21 Alkaline Phosphatase 51 Total Protein 6.6 Albumin 3.4 L Lipase Urine Color Urine Appearance Urine pH Ur Specific [place] Urine Protein Urine Glucose (UA) Urine Ketones Urine Blood Urine Nitrite Ur Leukocyte Esterase Urine RBC Urine WBC Ur Squamous Epith Cells Urine Bacteria Hyaline Casts 02/12/23 02/12/23 02/12/23 09:34 11:08 13:13 MCV MCH MCHC RDW Plt Count MPV Immature Gran % (Auto) Neut % (Auto) Lymph % (Auto) [place] % (Auto) Eos % (Auto) Baso % (Auto) Lymph # (Auto) [place] # (Auto) Eos # (Auto) Baso # (Auto) Abs Immat Gran (auto) Absolute Neuts (auto) Absolute Nucleated RBC Nucleated RBC % (auto) Neutrophils % (Manual) Band Neutrophils % Lymphocytes % (Manual) Abs Neuts (Manual) Lymphocytes # (Manual) Nucleated RBCs Toxic Vacuolation Platelet Estimate Plt Morphology Comment RBC Morphology Polychromasia Macrocytosis Acanthocytes (Spur) Smear Tech's Comments PT 18.4 H D INR 1.5 H APTT 37.9 H D O2 Saturation ABG pH at Pt Temp ABG pCO2 at Pt Temp ABG pO2 at Pt Temp ABG HCO3 ABG Base Excess (Actual) VBG pH 7.21 L VBG pCO2 62 VBG pO2 39 VBG HCO3 25 VBG O2 Saturation 52.0 VBG Base Excess -3.6 Anion Gap Estim Creat Clear Calc Estimated GFR POC Glucose Random Glucose Lactic Acid Lactic Acid F/U @ 2Hr Lactic Acid F/U @ 4Hr 5.1 H* Calcium Magnesium Total Bilirubin Direct Bilirubin AST ALT Alkaline Phosphatase Total Protein Albumin Lipase Urine Color Urine Appearance Urine pH Ur Specific [place] Urine Protein Urine Glucose (UA) Urine Ketones Urine Blood Urine Nitrite Ur Leukocyte Esterase Urine RBC Urine WBC Ur Squamous Epith Cells Urine Bacteria Hyaline Casts 02/12/23 02/12/23 02/12/23 13:20 14:40 Unknown MCV MCH MCHC RDW Plt Count MPV Immature Gran % (Auto) Neut % (Auto) Lymph % (Auto) [place] % (Auto) Eos % (Auto) Baso % (Auto) Lymph # (Auto) [place] # (Auto) Eos # (Auto) Baso # (Auto) Abs Immat Gran (auto) Absolute Neuts (auto) Absolute Nucleated RBC Nucleated RBC % (auto) Neutrophils % (Manual) Band Neutrophils % Lymphocytes % (Manual) Abs Neuts (Manual) Lymphocytes # (Manual) Nucleated RBCs Toxic Vacuolation Platelet Estimate Plt Morphology Comment RBC Morphology Polychromasia Macrocytosis Acanthocytes (Spur) Smear Tech's Comments PT INR APTT O2 Saturation 92.0 ABG pH at Pt Temp 7.29 L ABG pCO2 at Pt Temp 50 H ABG pO2 at Pt Temp 69 L ABG HCO3 24 ABG Base Excess (Actual) -2.6 VBG pH VBG pCO2 VBG pO2 VBG HCO3 VBG O2 Saturation VBG Base Excess Anion Gap Estim Creat Clear Calc Estimated GFR POC Glucose Random Glucose Lactic Acid Lactic Acid F/U @ 2Hr Lactic Acid F/U @ 4Hr Calcium Magnesium Total Bilirubin Direct Bilirubin AST ALT Alkaline Phosphatase Total Protein Albumin Lipase Urine Color Yellow Yellow Urine Appearance Clear Clear Urine pH 6.5 6.5 Ur Specific [place] 1.010 >= 1.030 H Urine Protein Trace Trace Urine Glucose (UA) Negative Negative Urine Ketones Trace Trace Urine Blood Trace Negative Urine Nitrite Negative Negative Ur Leukocyte Esterase Negative Trace H Urine RBC 3-5 H 0-2 Urine WBC 0-5 0-5 Ur Squamous Epith Cells 0-2 0-2 Urine Bacteria None Seen None Seen Hyaline Casts 11-20 0-2 Microbiology Microbiology Results: Microbiology 02/11/23 16:15 Blood Culture - Preliminary Blood - Venous Prelim: GPC Gram Stain only Assessment and Plan (1) Hypotension: Status: Acute (2) Sepsis: Status: Acute (3) Acute cholecystitis: Status: Acute Plan 72 years old male with pmh of DVT on eliquis, hypothyroid, arthritis, GERD who presernts with abdominal pain and found to have acute cholecystitis. severe Sepsis 2/2 Acute cholecystitis and Hypotension 2/2 sepsis total 4L as 30ml\kg as per h&p ,added 1 liter bolus ,albumin blood cultures positive -1/2 gram postive in clusters lactic acid persistently elevated multifactorial( sepsis ,nebs ,hypoxia )-lactic acid in 5 range continue IVF,IV Abx Id eval Surgery-patient received Lovenox this morning so plan is cholecystostomy in the morning. hypoxemic /hypercarbic respirtaory failure : Multifactorial(atelectasis, morphine use,margie) continue nebs , incentive spirometry, chest physiotherapy, oxygen abel: Due to hypokalemia and Lasix might be contributing Patient currently euvolemic Nguyen placed, IV fluid Nephrology evaluation, avoid nephrotoxic drugs Hx VTE on hold chemoprophylaxis currently due to need of cholecystostomy procedure in the morning. Ongoing hospitalization need: Severe sepsis, respiratory failure, ABEL-need hydration, antibiotics, monitoring respiratory status. d/w ICu -continue above care,no need for ICu for now ,continue to moniter Time Spent With Patient Time: Total time managing care of this patient today ____ minutes. Quality Stroke Does the patient have a stroke diagnosis?: No VTE Prior VTE?: Yes VTE Risk Level:: Surgical - high VTE Device Contraindication: N/A - Device Ordered VTE Drug Contraindication: N/A - Med Ordered
[2023-02-12 16:55] LABS: Granular Casts Urine Present
[2023-02-12] MEDS: DAPTOmycin 850 MG in 0.9 % Sodium Chloride 50 ML 134 MG IV (18:58)
--- NOTE | 2023-02-12 19:41 | PM.CNNEP ---
History of Present Illness Reason for Consult Consult date: 02/12/23 Chief Complaint Chief complaint: ABD PAIN, VOMITING Review of Systems Review of Systems patient says sob somewhat improving abd pain also some improving no fever Yes all other systems are reviewed and are negative Constitutional: Reports anorexia, Reports fatigue, Reports lethargy, Reports malaise and Reports weakness Cardiovascular: Denies chest pain, Denies syncope, Reports rapid heart rate, Denies irregular heart rhythm, Reports dyspnea and Denies dyspnea on exertion Respiratory: Denies chest congestion, Denies cough, Denies excessive phlegm production, Reports dyspnea and Denies dyspnea on exertion Gastrointestinal: Reports as per HPI, Reports abdominal pain ( right upper quadrant), Reports fecal incontinence, Reports nausea and Reports vomiting Genitourinary: Denies difficulty urinating Skin/Breast: Reports swelling and Reports rash Denies syncope, Denies seizure-like activity and Reports weakness Endocrine: Reports fatigue PMFSH Past Medical History Medical History Hypothyroidism Rheumatoid arthritis Chronic kidney disease, stage 3 unspecified Bacteremia Chronic pain syndrome Obstructive sleep apnea (adult) (pediatric) Morbid obesity Constipation Esophageal reflux Other chronic pain Acute thromboembolism of deep veins of lower extremity Peripheral vascular disease Retention of urine Rheumatoid arthritis Arthritis of both knees Acute embolism and thrombosis of right femoral vein Weakness Unsteadiness on feet Streptococcus, group b, as the cause of diseases classified elsewhere Primary osteoarthritis, right shoulder H/O gastric ulcer Acute deep vein thrombosis (DVT) Chronic arthritis Pain management Family History Family History Father CAD (coronary artery disease) Diabetes Mother Diabetes Brother Diabetes Surgical History Surgical History H/O esophagogastroduodenoscopy H/O colonoscopy H/O rectal polypectomy History of bilateral cataract extraction Social History Social History Household Members: None Housing: Apartment Do you presently have visiting nurse or other home services: Yes Alcohol intake: never Patient Tobacco Use Status: Never used Tobacco Smoked in Last 30 Days: No e-Cigarette/Vaping Use: Never Used Second Hand Smoke Exposure: No Use of substances other than those prescribed or required for medical reasons: No Currently Displaying Signs/Symptoms of Drug Intoxication Withdrawal: No Have you been hit, kicked, punched, or otherwise hurt by someone within the past year? If so, by whom?: No Do you feel safe in your current relationship?: No Is there a partner from a previous relationship who is making you feel unsafe now?: No Are you made to feel afraid or neglected: No Advance Directives: No Advance Directives Information Provided: No Do you have thoughts of harming others: None Do you have a plan to hurt others: No Plan Recently lost weight without trying: No How much weight loss: Unsure Eating poorly because of decreased appetite: No Nutrition screen score: 2 Nutrition Risks: No Nutritional Risk Poor oral hygiene: No service: No Current occupational status: unemployed Cognitive needs: Yes (wheel chair) Hearing needs: No Vision needs: Yes (glasses) Meds Allergies Allergy/AdvReac Type Severity Reaction Status Date / Time simvastatin [SIMVASTATIN] Allergy Unknown TOLD NEVER Verified 02/11/23 15:25 TO TAKE, Cramps in legs Gold shot AdvReac Unknown Itching Uncoded 02/04/23 10:33 Active Medications: Current Medications Albuterol/Ipratropium (Albuterol/Iprat 2.5/0.5mg 3 Ml Ampul.Neb) 3 ml INHALE RQ4H WHILE AWAKE [facility] Last Admin: 02/12/23 19:00 Dose: 3 ml Albuterol/Ipratropium (Albuterol/Iprat 2.5/0.5mg 3 Ml Ampul.Neb) 3 ml INHALE RQ4H WHILE AWAKE PRN PRN Reason: Shortness of Breath Enoxaparin Sodium (Enoxaparin Sodium 150 Mg/Ml Syringe) 135 mg 1 mg/kg (135 mg) SUBCUT Q24H [facility] Last Admin: 02/12/23 09:19 Dose: 135 mg Acetaminophen (Ofirmev) 1,000 mg in 100 mls @ 400 mls/hr IV Q6H [facility] Last Infusion: 02/12/23 12:39 Dose: Infused Dextrose/Lactated Ringer's (D5lr) 1,000 mls @ 125 mls/hr IVCONT .Q8H [facility] Last Admin: 02/12/23 14:59 Dose: Not Given Piperacillin Sod/Tazobactam (Sod 3.375 gm/ Sodium Chloride) 50 mls @ 100 mls/hr IV Q6H [facility] Last Infusion: 02/12/23 15:30 Dose: Infused Daptomycin 850 mg/ Sodium (Chloride) 67 mls @ 134 mls/hr IV Q24H [facility] Last Admin: 02/12/23 18:58 Dose: 134 mls/hr Nystatin (Nystatin Powder 15 Gm Bottle) 1 appl TOPICAL TID [facility]; Protocol Last Admin: 02/12/23 16:19 Dose: 1 appl Ondansetron HCl (Ondansetron Hcl 4 Mg/2 Ml Vial) 4 mg IVPUSH QID PRN PRN Reason: Nausea Oxycodone HCl (Oxycodone Hcl Immed Release 5 Mg Tablet) 10 mg PO Q6H PRN PRN Reason: Pain, Moderate(Pain Scale 4-6) Sodium Chloride (0.9 % Sodium Chloride Flush 3 Ml Syringe) 3 ml IVFLUSH QSHIFT [facility] Last Admin: 02/12/23 14:54 Dose: 3 ml Home Medications Medication Instructions Recorded Confirmed Last Taken Type omeprazole 20 mg capsule,delayed 20 mg PO DAILY@0630 05/04/20 02/12/23 02/10/23 History release levothyroxine 75 mcg tablet 75 mcg PO DAILY@0600 02/12/23 02/12/23 02/10/23 History Physical Exam Vital Signs: Last Vital Signs Temp 97.8 F 02/12/23 14:40 Pulse 106 H 02/12/23 19:00 Resp 20 02/12/23 19:00 BP 97/54 L 02/12/23 16:00 Pulse Ox 91 L 02/12/23 14:40 O2 Del Method Nasal Cannula 02/12/23 14:40 O2 Flow Rate 3 02/12/23 14:40 BMI result Body Mass Index 46.6 Const Other: Constitutional : Awake, interactive, morbidly obese, not in distress Neck : Normal inspection, Supple Cardiovascular : RRR, no JVP, no lower extremity edema Respiratory : good bilateral air entry, no crackles, wheezes or rhonchi Gastrointestinal: soft, lax, Normal bowel sounds, RUQ tenderness Skin : Warm, Dry Neurological : Alert & oriented to self and place, No focal deficit General: no acute distress, alert, awake, ill appearing and tired appearing Nutritional Appearance: obese Orientation/consciousness: patient oriented x3 Limitations: other limitations (Nonambulatory) HEENT Head: Yes normocephalic and Yes atraumatic Ears: hearing grossly normal bilaterally Eyes Sclerae: sclerae normal EOM: EOMs intact bilaterally Neck Neck: Yes no lymphadenopathy, Yes trachea midline and Yes supple Resp Effort & Inspection: normal respiratory effort, no audible wheezes, no cough, no respiratory distress and tachypneic Auscultation: clear to auscultation bilaterally and diminished lung sounds Cardio Rate: tachycardic Rhythm: regular rhythm Heart sounds: no gallops, no murmurs and no rubs GI Inspection: Yes Abdominal panniculus present and Yes obesity Palpation (GI): Soft to palpation, Tenderness to palpation present (GI) ( right upper quadrant) in the epigastrum, in the RUQ and Gomez's sign positive; with no rebound tenderness, no guarding and not rigid Percussion: Yes normal to percussion Auscultation: normal bowel sounds Rectal Exam - Male: Yes deferred Neuro General: patient oriented x3 Extrem General: No clubbing, No cyanosis and Yes edema ( trace bilateral) Results Lab Results 02/12/23 06:07 02/12/23 06:07 Lab results: Chemistry 02/11/23 02/12/23 16:23 06:07 Sodium 141 143 Potassium 4.5 3.7 Carbon Dioxide 26 21 L BUN 30 H 27 H Creatinine 1.34 1.74 H Calcium 10.1 D 9.3 D Hematology 02/11/23 02/12/23 16:15 06:07 WBC 14.4 H 12.0 H Hgb 13.2 L 12.9 L Plt Count 240 263 Urinalysis 02/12/23 02/12/23 14:40 Unknown Urine Color Yellow Yellow Urine Appearance Clear Clear Urine pH 6.5 6.5 Ur Specific [place] 1.010 >= 1.030 H Urine Protein Trace Trace Urine Glucose (UA) Negative Negative Urine Ketones Trace Trace Urine Blood Trace Negative Urine Nitrite Negative Negative Ur Leukocyte Esterase Negative Trace H Urine RBC 3-5 H 0-2 Urine WBC 0-5 0-5 Ur Squamous Epith Cells 0-2 0-2 Hyaline Casts 11-20 0-2 Assessment and Plan (1) Hypotension: Qualifiers: Hypotension type: unspecified hypotension type Qualified Code(s): I95.9 - Hypotension, unspecified Status: Acute (2) Sepsis: Qualifiers: Sepsis type: sepsis due to unspecified organism Sepsis acute organ dysfunction status: unspecified Qualified Code(s): A41.9 - Sepsis, unspecified organism Status: Acute (3) Acute cholecystitis: Status: Acute Plan 72 years old male with pmh of DVT on eliquis, hypothyroid, arthritis, GERD who presernts with abdominal pain and found to have acute cholecystitis. severe Sepsis 2/2 Acute cholecystitis and Hypotension 2/2 sepsis total 4L as 30ml\kg as per h&p ,added 1 liter bolus ,albumin blood cultures positive -1/2 gram postive in clusters lactic acid persistently elevated multifactorial( sepsis ,nebs ,hypoxia )-lactic acid in 5 range continue IVF,IV Abx Id eval Surgery-patient received Lovenox this morning so plan is cholecystostomy in the morning. hypoxemic /hypercarbic respirtaory failure : Multifactorial(atelectasis, morphine use,margie) continue nebs , incentive spirometry, chest physiotherapy, oxygen abel: Due to hypokalemia and Lasix might be contributing Patient currently euvolemic Nguyen placed, IV fluid Nephrology evaluation, avoid nephrotoxic drugs Hx VTE on hold chemoprophylaxis currently due to need of cholecystostomy procedure in the morning. Ongoing hospitalization need: Severe sepsis, respiratory failure, ABEL-need hydration, antibiotics, monitoring respiratory status. d/w ICu -continue above care,no need for ICu for now ,continue to moniter Time Spent With Patient Time: Total time managing care of this patient today ____ minutes. Procedures Date of Service Date of Service: 02/12/23
--- NOTE | 2023-02-12 19:46 | PM.PNNEP ---
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 but will follow clsoley; urine studies sent; follow UOP clsoely Physical Exam Vital Signs: Vital Signs: Last Vital Signs Temp 97.8 F 02/12/23 14:40 Pulse 106 H 02/12/23 19:00 Resp 20 02/12/23 19:00 BP 97/54 L 02/12/23 16:00 Pulse Ox 91 L 02/12/23 14:40 O2 Del Method Nasal Cannula 02/12/23 14:40 O2 Flow Rate 3 02/12/23 14:40 BMI result Body Mass Index 46.6 Const: General: no acute distress, alert, awake, ill appearing and tired appearing Nutritional Appearance: obese Orientation/consciousness: patient oriented x3 Limitations: other limitations (Nonambulatory) HEENT: Head: Yes normocephalic and Yes atraumatic Ears: hearing grossly normal bilaterally Eyes: Sclerae: sclerae normal EOM: EOMs intact bilaterally Neck: Neck: Yes no lymphadenopathy, Yes trachea midline and Yes supple Resp: Effort & Inspection: normal respiratory effort, no audible wheezes, no cough, no respiratory distress and tachypneic Auscultation: clear to auscultation bilaterally and diminished lung sounds Cardio: Rate: tachycardic Rhythm: regular rhythm Heart sounds: no gallops, no murmurs and no rubs GI: Inspection: Yes Abdominal panniculus present and Yes obesity Palpation (GI): Soft to palpation, Tenderness to palpation present (GI) ( right upper quadrant) in the epigastrum, in the RUQ and Gomez's sign positive; with no rebound tenderness, no guarding and not rigid Percussion: Yes normal to percussion Auscultation: normal bowel sounds Rectal Exam - Male: Yes deferred Neuro: General: patient oriented x3 Extrem: General: No clubbing, No cyanosis and Yes edema ( trace bilateral) Objective Data Labs 02/12/23 06:07 02/12/23 06:07 Labs: Laboratory Results - last 24 hr 02/11/23 02/12/23 02/12/23 21:52 06:07 08:54 WBC 12.0 H RBC 4.25 L Hgb 12.9 L Hct 42.6 MCV 100.2 H D MCH 30.4 MCHC 30.3 L RDW 16.9 H Plt Count 263 MPV 9.5 Immature Gran % (Auto) Cancelled Neut % (Auto) Cancelled Lymph % (Auto) Cancelled [place] % (Auto) Cancelled Eos % (Auto) Cancelled Baso % (Auto) Cancelled Lymph # (Auto) Cancelled [place] # (Auto) Cancelled Eos # (Auto) Cancelled Baso # (Auto) Cancelled Abs Immat Gran (auto) Cancelled Absolute Neuts (auto) Cancelled Absolute Nucleated RBC 0.020 H Nucleated RBC % (auto) 0.2 Neutrophils % (Manual) 66 Band Neutrophils % 28 H Lymphocytes % (Manual) 6 L Abs Neuts (Manual) 11.3 H Lymphocytes # (Manual) 0.7 L Nucleated RBCs 1 H Toxic Vacuolation PRESENT Platelet Estimate NORMAL Plt Morphology Comment NORMAL RBC Morphology NOTED Polychromasia 1+ (0-2) Macrocytosis 1+ (5-14) Acanthocytes (Spur) 1+ (0-2) Smear Path Review SEE NOTE PT INR APTT O2 Saturation ABG pH at Pt Temp ABG pCO2 at Pt Temp ABG pO2 at Pt Temp ABG HCO3 ABG Base Excess (Actual) VBG pH VBG pCO2 VBG pO2 VBG HCO3 VBG O2 Saturation VBG Base Excess Sodium 143 Potassium 3.7 Chloride 106 Carbon Dioxide 21 L Anion Gap 20 BUN 27 H Creatinine 1.74 H Estim Creat Clear Calc 49.3 Estimated GFR 39 POC Glucose 178 H Random Glucose 131 H Lactic Acid 4.4 H* Lactic Acid F/U @ 2Hr 5.0 H* Lactic Acid F/U @ 4Hr Calcium 9.3 D Total Bilirubin 0.9 Direct Bilirubin 0.5 AST 28 ALT 21 Alkaline Phosphatase 51 Total Creatine Kinase 26 L Total Protein 6.6 Albumin 3.4 L Urine Color Urine Appearance Urine pH Ur Specific [place] Urine Protein Urine Glucose (UA) Urine Ketones Urine Blood Urine Nitrite Ur Leukocyte Esterase Urine RBC Urine WBC Ur Squamous Epith Cells Urine Bacteria Hyaline Casts Granular Casts 02/12/23 02/12/23 02/12/23 09:34 11:08 13:13 WBC RBC Hgb Hct MCV MCH MCHC RDW Plt Count MPV Immature Gran % (Auto) Neut % (Auto) Lymph % (Auto) [place] % (Auto) Eos % (Auto) Baso % (Auto) Lymph # (Auto) [place] # (Auto) Eos # (Auto) Baso # (Auto) Abs Immat Gran (auto) Absolute Neuts (auto) Absolute Nucleated RBC Nucleated RBC % (auto) Neutrophils % (Manual) Band Neutrophils % Lymphocytes % (Manual) Abs Neuts (Manual) Lymphocytes # (Manual) Nucleated RBCs Toxic Vacuolation Platelet Estimate Plt Morphology Comment RBC Morphology Polychromasia Macrocytosis Acanthocytes (Spur) Smear Path Review PT 18.4 H D INR 1.5 H APTT 37.9 H D O2 Saturation ABG pH at Pt Temp ABG pCO2 at Pt Temp ABG pO2 at Pt Temp ABG HCO3 ABG Base Excess (Actual) VBG pH 7.21 L VBG pCO2 62 VBG pO2 39 VBG HCO3 25 VBG O2 Saturation 52.0 VBG Base Excess -3.6 Sodium Potassium Chloride Carbon Dioxide Anion Gap BUN Creatinine Estim Creat Clear Calc Estimated GFR POC Glucose Random Glucose Lactic Acid Lactic Acid F/U @ 2Hr Lactic Acid F/U @ 4Hr 5.1 H* Calcium Total Bilirubin Direct Bilirubin AST ALT Alkaline Phosphatase Total Creatine Kinase Total Protein Albumin Urine Color Urine Appearance Urine pH Ur Specific [place] Urine Protein Urine Glucose (UA) Urine Ketones Urine Blood Urine Nitrite Ur Leukocyte Esterase Urine RBC Urine WBC Ur Squamous Epith Cells Urine Bacteria Hyaline Casts Granular Casts 02/12/23 02/12/23 02/12/23 13:20 14:40 Unknown WBC RBC Hgb Hct MCV MCH MCHC RDW Plt Count MPV Immature Gran % (Auto) Neut % (Auto) Lymph % (Auto) [place] % (Auto) Eos % (Auto) Baso % (Auto) Lymph # (Auto) [place] # (Auto) Eos # (Auto) Baso # (Auto) Abs Immat Gran (auto) Absolute Neuts (auto) Absolute Nucleated RBC Nucleated RBC % (auto) Neutrophils % (Manual) Band Neutrophils % Lymphocytes % (Manual) Abs Neuts (Manual) Lymphocytes # (Manual) Nucleated RBCs Toxic Vacuolation Platelet Estimate Plt Morphology Comment RBC Morphology Polychromasia Macrocytosis Acanthocytes (Spur) Smear Path Review PT INR APTT O2 Saturation 92.0 ABG pH at Pt Temp 7.29 L ABG pCO2 at Pt Temp 50 H ABG pO2 at Pt Temp 69 L ABG HCO3 24 ABG Base Excess (Actual) -2.6 VBG pH VBG pCO2 VBG pO2 VBG HCO3 VBG O2 Saturation VBG Base Excess Sodium Potassium Chloride Carbon Dioxide Anion Gap BUN Creatinine Estim Creat Clear Calc Estimated GFR POC Glucose Random Glucose Lactic Acid Lactic Acid F/U @ 2Hr Lactic Acid F/U @ 4Hr Calcium Total Bilirubin Direct Bilirubin AST ALT Alkaline Phosphatase Total Creatine Kinase Total Protein Albumin Urine Color Yellow Yellow Urine Appearance Clear Clear Urine pH 6.5 6.5 Ur Specific [place] 1.010 >= 1.030 H Urine Protein Trace Trace Urine Glucose (UA) Negative Negative Urine Ketones Trace Trace Urine Blood Trace Negative Urine Nitrite Negative Negative Ur Leukocyte Esterase Negative Trace H Urine RBC 3-5 H 0-2 Urine WBC 0-5 0-5 Ur Squamous Epith Cells 0-2 0-2 Urine Bacteria None Seen None Seen Hyaline Casts 11-20 0-2 Granular Casts Present Microbiology Microbiology Results: Microbiology 02/11/23 16:24 Blood - Venous Blood Culture - Preliminary No growth after 24 hours. 02/11/23 16:15 Blood - Venous Blood Culture - Preliminary Prelim: GPC Gram Stain only Procedures Date of Service Date of Service: 02/12/23 Assessment & Plan Assessment and plan (1) Hypotension: Status: Acute (2) Sepsis: Status: Acute (3) Acute cholecystitis: Status: Acute Time Spent With Patient Time: Total time managing care of this patient today ____ minutes. Progress Note: Quality Stroke Does the patient have a stroke diagnosis?: No
[2023-02-12 20:51] LABS: ABG Refer to POC result
[2023-02-12 21:04] LABS: Creatinine Urine 89.98 mg/dL
[2023-02-12] MEDS: ondansetron HCL 4 MG/2 ML VIAL IVPUSH (22:31)
[2023-02-12 22:44] LABS: CDiff Gene PCR NEGATIVE (Negative)
--- NOTE | 2023-02-12 22:57 | CONS_ITS ---
DATE OF SERVICE: 02/12/2023 REASON FOR CONSULTATION: I was asked to see patient to assist in evaluation and management of the patient's acute kidney injury, who presents to the hospital with sepsis from acute cholecystitis. His creatinine on admission was 1.34, it is now up to 1.74 and his baseline creatinine is around 0.9 to 1.0. HISTORY OF PRESENT ILLNESS: In summary, the patient is a 72-year-old gentleman, presented to the hospital with a complaint of abdominal pain. He has a history of DVT, on Eliquis; hypothyroidism; arthritis; GERD; and again was presenting with abdominal pain, felt to have acute cholecystitis, and is admitted to the surgical team. There are plans to possibly do a cholecystostomy tomorrow. The patient has required 4 or 5 L of IV fluids for very low blood pressures and with third-spacing of fluids. He actually was seen by the ICU team and felt not to need ICU admission, although his lactic level initially was 5 and has come down to 4 after 4-1/2 L of IV fluids. His urine output has been marginal. Presently, the patient is on oxygen, fairly comfortable and based on the hospitalist's notes, the patient has improved somewhat. PAST MEDICAL HISTORY: As mentioned, includes hypothyroidism; rheumatoid arthritis; stage 3 chronic kidney disease, baseline creatinine around 1.0; obstructive sleep apnea; morbid obesity; GERD; history of DVT; peripheral vascular disease; urinary retention. The patient is a poor historian, although he is conversant. He is not too much information. MEDICATIONS: His medications on admission are noted in the admitting notes. His current medications are noted in the MAR. ALLERGIES: NOTABLE TO SIMVASTATIN SOCIAL HISTORY: He is nonsmoker, nondrinker. No illicit drug use. REVIEW OF SYSTEMS: Somewhat limited as the patient is a bit groggy. PHYSICAL EXAMINATION: VITAL SIGNS: Blood pressure shows systolic blood pressure is in the 80s to 90s 4 L of fluid, his blood pressure is a bit up 98. Urine output approximately 200 cc over the past 3 hours. HEENT: Head is atraumatic and normocephalic. NECK: Supple. Mucous membranes are moist. LUNGS: Breath sounds bilaterally decreased at the bases. CARDIAC: Regular rate and rhythm. ABDOMEN: Obese, soft, nontender. EXTREMITIES: Shows 2 to 3+ edema with some chronic venous stasis changes in the legs. LABORATORY DATA: Show sodium 143, potassium 3.7, chloride 106, bicarb 21, BUN 27, creatinine 1.74. His lactate level is down to 4.4, was as high as 5.1. Calcium 9.3, albumin 3.4. Hemoglobin 12.9, hematocrit 42.6, white blood cell count 12.0, platelet count 283. Urine study shows specific gravity 1.030. Urine sodium of 45, urine creatinine of 89. He had a CT of the abdomen and pelvis with IV contrast, which showed the bladder not distended. IMPRESSION: ACUTE KIDNEY INJURY IN A PATIENT PRESENTING WITH ABDOMINAL PAIN, ACUTE CHOLECYSTITIS, AND SEPSIS. 1. Acute kidney injury. This is consistent with multifactorial acute tubular necrosis in the setting of sepsis. Renal hypoperfusion causing ischemic acute tubular necrosis may be playing a contributing role. His urine output seems to be improving and he is hemodynamically stable at this time and hopefully, he will continue to improve. a. Other possibilities of acute kidney injury including acute obstruction, rule out with a CAT scan. Acute interstitial nephritis and acute glomerulonephritis seem less likely, although infectious associated glomerulonephritis would be a consideration. 2. Stage 2/3 chronic kidney disease, baseline creatinine 1.0. 3. Sepsis consistent with cholecystitis is the source. RECOMMENDATIONS: At this time include continue IV fluids. Obtain urine studies. Consider giving IV albumin. We will start him on oral midodrine and possibly IV pressors if his blood pressure drops again given the third spacing so much. Avoid nephrotoxins. We will follow the patient closely with the team. MD PANCHO Lyons/BRIAN / [phone]
[2023-02-13] VITALS (51 sets, daily range): BP systolic 53–142; BP diastolic 23–92; PULSE 103–159; RESP 16–30; TEMP 36.2–36.6; O2SAT 90–97
[2023-02-13] MEDS: Albuterol/Iprat 2.5/0.5MG 3 ML AMPUL.NEB INHALE ×5 (01:13→19:10)
[2023-02-13] MEDS: Piperacillin Sodium/Tazobactam 3.375 GM in 0.9 % Sodium Chloride 50 ML IV ×4 (02:50→20:23)
[2023-02-13] MEDS: 0.9 % Sodium Chloride 500 ML IV (03:30)
[2023-02-13] MEDS: 0.9 % Sodium Chloride 1,000 ML 125 ML IVCONT (04:34)
--- NOTE | 2023-02-13 04:48 | PC.NURSE ---
Patient vitals were taken at 03:08 and BP was 87/52. Patient is AOx4. Pt denies lightheadedness, dizziness and blurred vision. Patient reported trouble catching breath @ time of vitals being taken. MD notified and arrived at bedside. MD ordered normal saline 500mls bolus which was given. MD then ordered maintenance fluids Normal Saline @ 125mls. Lactic acid draw, basic metabolic panel and complete blood count ordered. Repeat BP taken at 04:39 and is 83/40 after patient received bolus. MD notified no further orders placed. Patient being transferred to ICU. Report given to ICU.
--- NOTE | 2023-02-13 05:13 | PM.EVENT ---
Event Note Date of Service: 02/13/23 Event Note: Patient's blood pressure has gradually decreased, reaching a SBP of 87 . He was given a fluid bolus, but his blood pressure subsequently decreased even further. His oxygen requirement has also gradually increased to 94% on 8 liters of oxygen. He has total body fluid overloaded. Albumin was given the last shift. He is third spacing and may be progressing into acute pulmonary edema. Dr. Negron was consulted, and the patient has been transferred to the ICU for blood pressure support, including the possible use of vasopressors. Repeat laboratories, including a CBC, BMP, and lactic acid level, have been ordered. I informed the surgical team via Dr. Dawkins and Lee Time Spent With Patient Time: Total time managing care of this patient today ____ minutes.
[2023-02-13] MEDS: Phenylephrine HCL 20 MG in 0.9 % Sodium Chloride 250 ML 51.03 MG IVCONT (05:18)
[2023-02-13 05:20] LABS: Glucose, Whole Blood 115 mg/dL (60-115)
[2023-02-13] MEDS: Norepinephrine Bitartrate/D5W 8 MG/250 ML PLAST..BAG 12.66 MG IV (05:35)
[2023-02-13 06:24] LABS: VBG Base Excess -12.3 mmol/L; VBG HCO3 17 mmol/L (22-26); VBG pCO2 57 mmHg; VBG pH 7.09 (7.32-7.43); VBG pO2 40 mmHg
[2023-02-13 06:24] LABS: Hematocrit 44.9 % (42.0-52.0); Hemoglobin 13.4 g/dl (14.0-18.0); Mean Corpuscular HGB Conc 29.8 g/dl (31.0-36.0); Mean Corpuscular Hemoglobin 30.7 pg (27.0-33.0); Mean Corpuscular Volume 102.7 fL (80.0-98.0); Mean Platelet Volume 9.8 fL (9.4-12.4); Platelet Count 264 X10*3/uL (160-400); Red Blood Count 4.37 X10*6/uL (4.60-5.80); Red Cell Distribution Width 17.1 % (11.0-16.0)
[2023-02-13 06:25] LABS: Venous Blood Gas Refer to POC result
[2023-02-13] MEDS: Furosemide 40 MG/4 ML VIAL IVPUSH (06:31)
[2023-02-13] MEDS: Acetaminophen 1,000 MG/100 ML PIGGYBACK 400 MG IV ×3 (06:39→23:00)
[2023-02-13] MEDS: Sodium Bicarbonate 8.4% 50 MEQ/50 ML VIAL IVPUSH ×2 (06:40→10:39)
[2023-02-13 06:54] LABS: Alanine Aminotransferase 27 U/L (0-40); Albumin Level 3.3 g/dL (3.5-5.0); Alkaline Phosphatase 51 U/L (39-117); Anion Gap 22 (12-20); Aspartate Amino Transferase 29 U/L (5-37); Bilirubin Total 0.6 mg/dL (0.0-1.0); Blood Urea Nitrogen 30 mg/dL (9-16); Calcium 8.5 mg/dL (8.4-10.2); Carbon Dioxide 15 mmol/L (22-29); Chloride 111 mmol/L (96-108); Creatinine Clr Calc Pharmacy 38.8; Estimated Glomerular Filt Rate 29; Glucose Random 121 mg/dL (60-115); Magnesium 1.8 mg/dL (1.6-2.6); Phosphorus 5.9 mg/dL (2.7-4.5); Potassium 3.5 mmol/L (3.3-5.1); Sodium 144 mmol/L (135-145); Total Protein 6.4 g/dL (6.5-8.0)
[2023-02-13 06:55] LABS: Lactic Acid 4.4 mmol/L (0.5-2.0)
[2023-02-13 06:57] LABS: B Type Natriuretic Peptide 444 pg/mL (<100)
--- NOTE | 2023-02-13 07:00 | CA_ITS ---
Transthoracic Echocardiogram Patient (Last, First, Middle): Rich Nance C Gender: Male Date of : 1950 Age: 72 Procedure Date: 02/13/2023 Procedure Type: Transthoracic Echocardiogram Location: ICU Height: 170.18 cm Weight: 134.72 kg BSA: 2.39 m2 Heart Rate: 117 bpm BP: 122 / 50 mmHg Detention Officer: SB Referring MD: Cesar Dillard MD Symptoms: sob/bacteremia Study Quality: Adequate ECG Rhythm: Tachycardia Conclusions: - Normal left ventricular size and systolic function. The visually estimated ejection fraction is between 60-65%. There is no evidence of regional wall motion abnormalities. Diastolic function is normal for age. There is moderate septal asymmetric hypertrophy. - Normal right ventricular cavity size and systolic function. Findings Left Ventricle Normal left ventricular size and systolic function. The visually estimated ejection fraction is between 60-65%. There is no evidence of regional wall motion abnormalities. Diastolic function is normal for age. There is moderate septal asymmetric hypertrophy. Right Ventricle Normal right ventricular cavity size and systolic function. Atria The left atrium is normal in size. The right atrium is normal in size. Aortic Valve Normal aortic valve structure and function. There is no aortic valve stenosis. There is no aortic valve regurgitation. Mitral Valve Likely normal mitral valve structure and function. There is no mitral valve regurgitation. There is no mitral valve stenosis. Pulmonic Valve The pulmonic valve is likely normal. Tricuspid Valve Normal tricuspid valve structure. There is no tricuspid valve regurgitation. The right ventricular systolic pressure is 40 mmHg. Indeterminate right atrial pressure. PASP = 40 + RA pressure. Great Vessels The visualized portions of the pulmonary artery and branches are normal. Venous The inferior vena cava was not well visualized. Pericardium/Pleural Prominent epicardial adipose tissue noted. There is no evidence of pericardial effusion. Prior Study Comparison No significant change compared to prior study dated: 05/10/2020. Measurements 2D Linear Measurements IVSd: 1.40 0.6-0.9/0.6-1.0 cm LVIDd: 4.10 3.9-5.3/4.2-5.9 cm LVIDd Index: 1.72 2.4-3.2/2.2-3.1 cm/m2 LVIDs: 2.90 2.0-3.6 cm LVPWd: 1.00 0.7-1.1 cm LA Diam: 2.40 2.7-3.8/3.0-4.0 cm LAIDs Index: 1.00 1.5-2.3 cm/m2 LV Mass: 213.93 67-162/88-224 g LV Mass Index: 89.51 43-95/49-115 g/m2 LVOT Diam: 2.00 3.0+(-)1.3 cm Mitral Valve MV Pk E: 0.70 MV PK A: 0.94 MV Decel Time: 104.00 E/A: 0.80 E'Lateral: 13.40 E'Medial: 6.53 E/E' Med: 10.80 E/E' Lat: 5.30 PHT: 30.00 MVA PHT: 7.33 Decel [place]: 6.77 Aortic Valve AoV Pk Talon: 1.61 AoV Pk Grad: 10.00 VEENA: 2.79 LVOT LVOT Pk Talon: 1.48 LVOT Mn Talon: 1.12 LVOT VTI: 0.18 LVOT Pk Grad: 9.00 LVOT Mn Grad: 6.00 LVOT Diam: 2.00 LVOT Area: 3.14 Diastolic Function MV Pk E: 0.70 MV Pk A: 0.94 E/A: 0.80 E'Medial: 6.53 E/E' Med: 10.80 E' Laterial: 13.40 E/E' Lat: 5.30 Right Ventricle TAPSE (mm): 11.80 Tricuspid Valve TR Pk Talon: 3.23 TR Pk Grad: 42.00 RA Press: 8.00 RVSP: 40.00 Great Vessels Aorta Sinus of Valsalva: 3.40 2.0-3.5 cm Ao Asc: 3.10 2.1-3.4 cm Pulmonary Valve PV Pk Talon: 1.18 Peak PV Grad: 6.00 Updated in Other Vendor System with Status of Final Fleipe Rodriguez MD electronically signed on 02/13/2023 1:17:48 PM with status of Final
--- NOTE | 2023-02-13 07:38 | PM.PNGS ---
Subjective Subjective Date of Service: 02/13/23 Patient reports: tolerating liquids well Interval history: Patient transferred to ICU this morning due to Hypotension, shortness of breath. Physical Exam Vital Signs: Vital Signs: Last Vital Signs Temp 97.1 F 02/13/23 03:08 Pulse 114 H 02/13/23 07:25 Resp 21 H 02/13/23 07:32 BP 85/40 L 02/13/23 07:25 Pulse Ox 93 02/13/23 04:43 O2 Del Method Room Air 02/13/23 04:43 O2 Flow Rate 1.5 02/12/23 23:10 BMI result Body Mass Index 46.6 Const: General: lethargic Nutritional Appearance: obese Orientation/consciousness: lethargic HEENT: Other: CPAP in place, facial swelling Resp: Other: breathing with assistance of CPAP GI: Other: obese, distended, tender right upper quadrant Extrem: Other: peripheral edema Objective Data Active Medications Albuterol/Ipratropium (Albuterol/Iprat 2.5/0.5mg 3 Ml Ampul.Neb) 3 ml INHALE RQ4H WHILE AWAKE [facility] Last Admin: 02/12/23 19:00 Dose: 3 ml Documented By: GENEVA Albuterol/Ipratropium (Albuterol/Iprat 2.5/0.5mg 3 Ml Ampul.Neb) 3 ml INHALE RQ4H WHILE AWAKE PRN PRN Reason: Shortness of Breath Last Admin: 02/13/23 04:26 Dose: 3 ml Documented By: GENEVA Enoxaparin Sodium (Enoxaparin Sodium 150 Mg/Ml Syringe) 135 mg 1 mg/kg (135 mg) SUBCUT Q24H [facility] Last Admin: 02/12/23 09:19 Dose: 135 mg Documented By: MILENA Piperacillin Sod/Tazobactam (Sod 3.375 gm/ Sodium Chloride) 50 mls @ 100 mls/hr IV Q6H [facility] Last Infusion: 02/13/23 03:21 Dose: Infused Documented By: JALEN Daptomycin 850 mg/ Sodium (Chloride) 67 mls @ 134 mls/hr IV Q24H [facility] Last Infusion: 02/12/23 19:51 Dose: Infused Documented By: PEBBLES Acetaminophen (Ofirmev) 1,000 mg in 100 mls @ 400 mls/hr IV Q6H [facility] Last Infusion: 02/13/23 07:06 Dose: Infused Documented By: KINZA Sodium Chloride (Ns) 1,000 mls @ 125 mls/hr IVCONT .Q8H [facility] Last Infusion: 02/13/23 05:47 Dose: Infused Documented By: SHY Phenylephrine HCl 20 mg/ (Sodium Chloride) 252 mls @ 0 mls/hr IVCONT .Q0M [facility]; Protocol Last Titration: 02/13/23 05:35 Dose: Infused Documented By: LEIOC Norepinephrine Bitartrate (Levophed) 8 mg in 250 mls @ 0 mls/hr IV .Q0M [facility]; Protocol Last Titration: 02/13/23 07:25 Dose: 0.2 mcg/kg/min, 50.63 mls/hr Documented By: KINZA Nystatin (Nystatin Powder 15 Gm Bottle) 1 appl TOPICAL TID [facility]; Protocol Last Admin: 02/12/23 20:38 Dose: 1 appl Documented By: JALEN Ondansetron HCl (Ondansetron Hcl 4 Mg/2 Ml Vial) 4 mg IVPUSH QID PRN PRN Reason: Nausea Last Admin: 02/12/23 22:31 Dose: 4 mg Documented By: JALEN Oxycodone HCl (Oxycodone Hcl Immed Release 5 Mg Tablet) 10 mg PO Q6H PRN PRN Reason: Pain, Moderate(Pain Scale 4-6) Sodium Chloride (0.9 % Sodium Chloride Flush 3 Ml Syringe) 3 ml IVFLUSH QSHIFT [facility] Last Admin: 02/13/23 00:55 Dose: Not Given Documented By: JALEN Non-Admin Reason: IV Running Labs 02/13/23 06:16 02/13/23 06:16 Labs: Laboratory Results - last 24 hr 02/12/23 02/12/23 02/12/23 06:07 08:54 09:34 MCV MCH MCHC RDW Plt Count MPV Absolute Nucleated RBC Nucleated RBC % (auto) Smear Path Review SEE NOTE PT INR APTT O2 Saturation ABG pH at Pt Temp ABG pCO2 at Pt Temp ABG pO2 at Pt Temp ABG HCO3 ABG Base Excess (Actual) VBG pH 7.21 L VBG pCO2 62 VBG pO2 39 VBG HCO3 25 VBG O2 Saturation 52.0 VBG Base Excess -3.6 Anion Gap Estim Creat Clear Calc Estimated GFR POC Glucose Random Glucose Lactic Acid Lactic Acid F/U @ 2Hr 5.0 H* Lactic Acid F/U @ 4Hr Calcium Phosphorus Magnesium Total Bilirubin AST ALT Alkaline Phosphatase Total Creatine Kinase 26 L B-Natriuretic Peptide Total Protein Albumin Urine Color Urine Appearance Urine pH Ur Specific [place] Urine Protein Urine Glucose (UA) Urine Ketones Urine Blood Urine Nitrite Ur Leukocyte Esterase Urine RBC Urine WBC Ur Squamous Epith Cells Urine Bacteria Hyaline Casts Granular Casts Ur Random Sodium Urine Creatinine C. difficile Tox B Gene 02/12/23 02/12/23 02/12/23 11:08 13:13 13:20 MCV MCH MCHC RDW Plt Count MPV Absolute Nucleated RBC Nucleated RBC % (auto) Smear Path Review PT 18.4 H D INR 1.5 H APTT 37.9 H D O2 Saturation 92.0 ABG pH at Pt Temp 7.29 L ABG pCO2 at Pt Temp 50 H ABG pO2 at Pt Temp 69 L ABG HCO3 24 ABG Base Excess (Actual) -2.6 VBG pH VBG pCO2 VBG pO2 VBG HCO3 VBG O2 Saturation VBG Base Excess Anion Gap Estim Creat Clear Calc Estimated GFR POC Glucose Random Glucose Lactic Acid Lactic Acid F/U @ 2Hr Lactic Acid F/U @ 4Hr 5.1 H* Calcium Phosphorus Magnesium Total Bilirubin AST ALT Alkaline Phosphatase Total Creatine Kinase B-Natriuretic Peptide Total Protein Albumin Urine Color Urine Appearance Urine pH Ur Specific [place] Urine Protein Urine Glucose (UA) Urine Ketones Urine Blood Urine Nitrite Ur Leukocyte Esterase Urine RBC Urine WBC Ur Squamous Epith Cells Urine Bacteria Hyaline Casts Granular Casts Ur Random Sodium Urine Creatinine C. difficile Tox B Gene 02/12/23 02/12/23 02/13/23 14:40 21:45 05:17 MCV MCH MCHC RDW Plt Count MPV Absolute Nucleated RBC Nucleated RBC % (auto) Smear Path Review PT INR APTT O2 Saturation ABG pH at Pt Temp ABG pCO2 at Pt Temp ABG pO2 at Pt Temp ABG HCO3 ABG Base Excess (Actual) VBG pH VBG pCO2 VBG pO2 VBG HCO3 VBG O2 Saturation VBG Base Excess Anion Gap Estim Creat Clear Calc Estimated GFR POC Glucose 115 Random Glucose Lactic Acid Lactic Acid F/U @ 2Hr Lactic Acid F/U @ 4Hr Calcium Phosphorus Magnesium Total Bilirubin AST ALT Alkaline Phosphatase Total Creatine Kinase B-Natriuretic Peptide Total Protein Albumin Urine Color Yellow Urine Appearance Clear Urine pH 6.5 Ur Specific [place] 1.010 Urine Protein Trace Urine Glucose (UA) Negative Urine Ketones Trace Urine Blood Trace Urine Nitrite Negative Ur Leukocyte Esterase Negative Urine RBC 3-5 H Urine WBC 0-5 Ur Squamous Epith Cells 0-2 Urine Bacteria None Seen Hyaline Casts 11-20 Granular Casts Present Ur Random Sodium 45.0 Urine Creatinine 89.98 C. difficile Tox B Gene NEGATIVE 02/13/23 02/13/23 02/13/23 06:16 06:16 06:16 MCV 102.7 H MCH 30.7 MCHC 29.8 L RDW 17.1 H Plt Count 264 MPV 9.8 Absolute Nucleated RBC 0.000 Nucleated RBC % (auto) 0.0 Smear Path Review PT INR APTT O2 Saturation ABG pH at Pt Temp ABG pCO2 at Pt Temp ABG pO2 at Pt Temp ABG HCO3 ABG Base Excess (Actual) VBG pH VBG pCO2 VBG pO2 VBG HCO3 VBG O2 Saturation VBG Base Excess Anion Gap Cancelled 22 H Estim Creat Clear Calc Cancelled 38.8 Estimated GFR Cancelled POC Glucose Random Glucose Lactic Acid Lactic Acid F/U @ 2Hr Lactic Acid F/U @ 4Hr Calcium Phosphorus Magnesium Total Bilirubin AST ALT Alkaline Phosphatase Total Creatine Kinase B-Natriuretic Peptide Total Protein Albumin Urine Color Urine Appearance Urine pH Ur Specific [place] Urine Protein Urine Glucose (UA) Urine Ketones Urine Blood Urine Nitrite Ur Leukocyte Esterase Urine RBC Urine WBC Ur Squamous Epith Cells Urine Bacteria Hyaline Casts Granular Casts Ur Random Sodium Urine Creatinine C. difficile Tox B Gene 02/13/23 02/13/23 02/13/23 06:16 06:16 06:16 MCV MCH MCHC RDW Plt Count MPV Absolute Nucleated RBC Nucleated RBC % (auto) Smear Path Review PT INR APTT O2 Saturation ABG pH at Pt Temp ABG pCO2 at Pt Temp ABG pO2 at Pt Temp ABG HCO3 ABG Base Excess (Actual) VBG pH VBG pCO2 VBG pO2 VBG HCO3 VBG O2 Saturation VBG Base Excess Anion Gap Estim Creat Clear Calc Estimated GFR 29 POC Glucose Random Glucose Cancelled 121 H Lactic Acid 4.4 H* Lactic Acid F/U @ 2Hr Lactic Acid F/U @ 4Hr Calcium Cancelled 8.5 D Phosphorus Cancelled Magnesium Total Bilirubin AST ALT Alkaline Phosphatase Total Creatine Kinase B-Natriuretic Peptide Total Protein Albumin Urine Color Urine Appearance Urine pH Ur Specific [place] Urine Protein Urine Glucose (UA) Urine Ketones Urine Blood Urine Nitrite Ur Leukocyte Esterase Urine RBC Urine WBC Ur Squamous Epith Cells Urine Bacteria Hyaline Casts Granular Casts Ur Random Sodium Urine Creatinine C. difficile Tox B Gene 02/13/23 02/13/23 02/13/23 06:16 06:16 06:16 MCV MCH MCHC RDW Plt Count MPV Absolute Nucleated RBC Nucleated RBC % (auto) Smear Path Review PT INR APTT O2 Saturation ABG pH at Pt Temp ABG pCO2 at Pt Temp ABG pO2 at Pt Temp ABG HCO3 ABG Base Excess (Actual) VBG pH VBG pCO2 VBG pO2 VBG HCO3 VBG O2 Saturation VBG Base Excess Anion Gap Estim Creat Clear Calc Estimated GFR POC Glucose Random Glucose Lactic Acid Lactic Acid F/U @ 2Hr Lactic Acid F/U @ 4Hr Calcium Phosphorus 5.9 H Magnesium Cancelled 1.8 Total Bilirubin 0.6 AST 29 ALT 27 Alkaline Phosphatase 51 Total Creatine Kinase B-Natriuretic Peptide 444 H Total Protein 6.4 L Albumin Cancelled 3.3 L Urine Color Urine Appearance Urine pH Ur Specific [place] Urine Protein Urine Glucose (UA) Urine Ketones Urine Blood Urine Nitrite Ur Leukocyte Esterase Urine RBC Urine WBC Ur Squamous Epith Cells Urine Bacteria Hyaline Casts Granular Casts Ur Random Sodium Urine Creatinine C. difficile Tox B Gene 02/13/23 06:17 MCV MCH MCHC RDW Plt Count MPV Absolute Nucleated RBC Nucleated RBC % (auto) Smear Path Review PT INR APTT O2 Saturation ABG pH at Pt Temp ABG pCO2 at Pt Temp ABG pO2 at Pt Temp ABG HCO3 ABG Base Excess (Actual) VBG pH 7.09 L* VBG pCO2 57 VBG pO2 40 VBG HCO3 17 L VBG O2 Saturation 65.0 VBG Base Excess -12.3 Anion Gap Estim Creat Clear Calc Estimated GFR POC Glucose Random Glucose Lactic Acid Lactic Acid F/U @ 2Hr Lactic Acid F/U @ 4Hr Calcium Phosphorus Magnesium Total Bilirubin AST ALT Alkaline Phosphatase Total Creatine Kinase B-Natriuretic Peptide Total Protein Albumin Urine Color Urine Appearance Urine pH Ur Specific [place] Urine Protein Urine Glucose (UA) Urine Ketones Urine Blood Urine Nitrite Ur Leukocyte Esterase Urine RBC Urine WBC Ur Squamous Epith Cells Urine Bacteria Hyaline Casts Granular Casts Ur Random Sodium Urine Creatinine C. difficile Tox B Gene Microbiology Microbiology Results: Microbiology 02/11/23 16:24 Blood Culture - Preliminary Blood - Venous No growth after 24 hours. 02/11/23 16:15 Blood Culture - Preliminary Blood - Venous Prelim: GPC Gram Stain only Procedures Date of Service Date of Service: 02/13/23 Progress Note: A&P Assessment and plan (1) Hypotension: Status: Acute Assessment and Plan: patient transferred to ICU due to hypotension, appreciated ICU management. (2) Sepsis: Status: Acute Assessment and Plan: Acute cholecystitis, acalculous. WBC increased to 20. Continue IV antibiotic. (3) Acute cholecystitis: Status: Acute Assessment and Plan: Awaiting cholecystostomy tube placement hopefully this morning for probable acalculous cholecystitis. (4) Venous thromboembolism: Status: Acute Assessment and Plan: Patient off anticoagulation in anticipation of cholecystostomy tube placement. Will need to restart as soon as safe from radiology standpoint. Time Spent With Patient Time: Total time managing care of this patient today ____ minutes. Quality Stroke Does the patient have a stroke diagnosis?: No VTE Prior VTE?: Yes VTE Risk Level:: Surgical - high VTE Device Contraindication: N/A - Device Ordered VTE Drug Contraindication: N/A - Med Ordered
[2023-02-13] MEDS: 0.9 % Sodium Chloride Flush 3 ML SYRINGE IVFLUSH ×3 (08:00→23:11)
[2023-02-13] MEDS: Nystatin Powder 15 GM BOTTLE 1 APPL TOPICAL ×3 (08:01→22:09)
[2023-02-13 08:20] LABS: Reflex Lactate? Lactic Acid Added
[2023-02-13 09:14] LABS: ABG Base Excess -11.2 mmol/L; ABG HCO3 15 mmol/L (22-26); ABG pCO2 35 mmHg (32-45); ABG pH 7.23 (7.35-7.45); ABG pO2 70 mmHg (83-108)
[2023-02-13 09:25] LABS: ~Lactic Acid-LAB USE ONLY 4.8 mmol/L (0.5-2.0)
[2023-02-13] MEDS: Norepinephrine Bitartrate/D5W 8 MG/250 ML PLAST..BAG 75.94 MG IV (09:42)
[2023-02-13 09:43] LABS: Adenovirus F 40/41 Not Detected (Not Detect.); Astrovirus Not Detected (Not Detect.); Campylobacter Not Detected (Not Detect.); Cryptosporidium Not Detected (Not Detect.); Cyclospora cayetanensis Not Detected (Not Detect.); E. coli EAEC Not Detected (Not Detect.); E. coli EPEC Not Detected (Not Detect.); E. coli ETEC Not Detected (Not Detect.); E. coli STEC Not Detected (Not Detect.); Entamoeba histolytica Not Detected (Not Detect.); Giardia lamblia Not Detected (Not Detect.); Norovirus GI/GII Not Detected (Not Detect.); Plesiomonas shigelloides Not Detected (Not Detect.); Rotavirus A Not Detected (Not Detect.); Salmonella Not Detected (Not Detect.); Sapovirus Not Detected (Not Detect.); Shigella sp./EIEC Not Detected (Not Detect.); Vibrio Not Detected (Not Detect.); Vibrio Cholerae Not Detected (Not Detect.); Yersinia enterocolitica Not Detected (Not Detect.)
[2023-02-13 09:51] LABS: ABG Refer to POC result
[2023-02-13 10:58] LABS: INTERNATIONAL NORM RATIO 1.6 (0.9-1.1); Prothrombin Time 19.8 SEC (11.1-13.3)
[2023-02-13 11:00] LABS: Partial Thromboplastin Time 39.3 SEC (26.0-36.4)
[2023-02-13 11:09] LABS: Reflex Lactate? 2 Y
--- NOTE | 2023-02-13 11:11 | W.PM.CCHP ---
Procedures Date of Service Date of Service: 02/13/23 Central Line Placement Right IJ: Central Line Comments: After obtaining informed consent right internal jugular triple-lumen central venous catheter placed under ultrasound guidance and usual sterile conditions with no immediate complications for pressor support. Line position verified on chest x-ray.
--- NOTE | 2023-02-13 11:33 | P.PNCC_ITS ---
Subjective Subjective Date of Service: 02/13/23 Interval History: 72-year-old gentleman underlying morbid obesity, DVT on Eliquis, obstructive sleep, rheumatoid arthritis, hypothyroidism admitted 02/11/2023 for acute cholecystitis. Patient covered empirically with Zosyn and has been evaluated by General surgery with plan for possible cholecystostomy versus cholecystectomy. Overnight patient with developed septic shock requiring initiation of pressor support and transfer to intensive care unit. Blood cultures growing Staphylococcus. Critical Care Time (minutes): 60 Physical Exam 2 Vital Signs: Vital Signs: Last Vital Signs Temp 97.8 F 02/13/23 08:00 Pulse 124 H 02/13/23 11:26 Resp 24 H 02/13/23 11:22 BP 128/62 02/13/23 11:26 Pulse Ox 95 02/13/23 08:00 O2 Del Method BiPAP 02/13/23 08:00 O2 Flow Rate 1.5 02/12/23 23:10 FiO2 35 02/13/23 08:00 BMI result Body Mass Index 46.6 Const: General: no acute distress and lethargic ( Arousable) Nutritional Appearance: obese Orientation/consciousness: lethargic ( Arousable) Eyes: Sclerae: sclerae normal EOM: EOMs intact bilaterally Neck: Neck: Yes no lymphadenopathy, Yes trachea midline and Yes supple Resp: Effort & Inspection: normal respiratory effort and no respiratory distress Auscultation: clear to auscultation bilaterally Cardio: Rate: tachycardic Rhythm: regular rhythm Heart sounds: no gallops, no murmurs and no rubs GI: Palpation (GI): Soft to palpation and Other GI palpation findings present ( Nontender) Auscultation: normal bowel sounds Extrem: General: Yes no pedal edema (2+ bilateral), No clubbing and No cyanosis Objective Data Labs 02/13/23 06:16 02/13/23 06:16 Labs: Laboratory Results - last 24 hr 02/12/23 02/12/23 02/12/23 06:07 11:08 13:13 WBC RBC Hgb Hct MCV MCH MCHC RDW Plt Count MPV Absolute Nucleated RBC Nucleated RBC % (auto) Smear Path Review SEE NOTE PT 18.4 H D INR 1.5 H APTT 37.9 H D O2 Saturation ABG pH at Pt Temp ABG pCO2 at Pt Temp ABG pO2 at Pt Temp ABG HCO3 ABG Base Excess (Actual) VBG pH VBG pCO2 VBG pO2 VBG HCO3 VBG O2 Saturation VBG Base Excess Sodium Potassium Chloride Carbon Dioxide Anion Gap BUN Creatinine Estim Creat Clear Calc Estimated GFR POC Glucose Random Glucose Lactic Acid Lactic Acid F/U @ 2Hr Lactic Acid F/U @ 4Hr 5.1 H* Calcium Phosphorus Magnesium Total Bilirubin AST ALT Alkaline Phosphatase Total Creatine Kinase 26 L B-Natriuretic Peptide Total Protein Albumin Urine Color Urine Appearance Urine pH Ur Specific [place] Urine Protein Urine Glucose (UA) Urine Ketones Urine Blood Urine Nitrite Ur Leukocyte Esterase Urine RBC Urine WBC Ur Squamous Epith Cells Urine Bacteria Hyaline Casts Granular Casts Ur Random Sodium Urine Creatinine Stl C. cayetanensis PCR Stool Rotavirus A PCR Stl Adenov F PCR Stool Astrovirus (PCR) Stool Campylobacter PCR Stool Cryptosporidium PCR Stl Sh Tox Pr E STEC PCR Stool E coli O157 PCR Stl Enterotoxigenic E PCR Stool EPEC (PCR) Stool EAEC (PCR) Stl E. histolytica PCR Stool Giardia Lamblia PCR Stl P. shigelloides PCR Stool Salmonella PCR Stool Sapovirus (PCR) Stl Shigella/EIEC PCR St Y.enterocolitica PCR Stool Vibrio (PCR) Stl Vibrio cholerae PCR Stl Norovirus GI/GII PCR C. difficile Tox B Gene 02/12/23 02/12/23 02/12/23 13:20 14:40 21:45 WBC RBC Hgb Hct MCV MCH MCHC RDW Plt Count MPV Absolute Nucleated RBC Nucleated RBC % (auto) Smear Path Review PT INR APTT O2 Saturation 92.0 ABG pH at Pt Temp 7.29 L ABG pCO2 at Pt Temp 50 H ABG pO2 at Pt Temp 69 L ABG HCO3 24 ABG Base Excess (Actual) -2.6 VBG pH VBG pCO2 VBG pO2 VBG HCO3 VBG O2 Saturation VBG Base Excess Sodium Potassium Chloride Carbon Dioxide Anion Gap BUN Creatinine Estim Creat Clear Calc Estimated GFR POC Glucose Random Glucose Lactic Acid Lactic Acid F/U @ 2Hr Lactic Acid F/U @ 4Hr Calcium Phosphorus Magnesium Total Bilirubin AST ALT Alkaline Phosphatase Total Creatine Kinase B-Natriuretic Peptide Total Protein Albumin Urine Color Yellow Urine Appearance Clear Urine pH 6.5 Ur Specific [place] 1.010 Urine Protein Trace Urine Glucose (UA) Negative Urine Ketones Trace Urine Blood Trace Urine Nitrite Negative Ur Leukocyte Esterase Negative Urine RBC 3-5 H Urine WBC 0-5 Ur Squamous Epith Cells 0-2 Urine Bacteria None Seen Hyaline Casts 11-20 Granular Casts Present Ur Random Sodium 45.0 Urine Creatinine 89.98 Stl C. cayetanensis PCR Stool Rotavirus A PCR Stl Adenov F PCR Stool Astrovirus (PCR) Stool Campylobacter PCR Stool Cryptosporidium PCR Stl Sh Tox Pr E STEC PCR Stool E coli O157 PCR Stl Enterotoxigenic E PCR Stool EPEC (PCR) Stool EAEC (PCR) Stl E. histolytica PCR Stool Giardia Lamblia PCR Stl P. shigelloides PCR Stool Salmonella PCR Stool Sapovirus (PCR) Stl Shigella/EIEC PCR St Y.enterocolitica PCR Stool Vibrio (PCR) Stl Vibrio cholerae PCR Stl Norovirus GI/GII PCR C. difficile Tox B Gene NEGATIVE 02/12/23 02/13/23 02/13/23 Unknown 05:17 06:16 WBC 20.0 H RBC 4.37 L Hgb 13.4 L Hct 44.9 MCV 102.7 H MCH 30.7 MCHC 29.8 L RDW 17.1 H Plt Count 264 MPV 9.8 Absolute Nucleated RBC 0.000 Nucleated RBC % (auto) 0.0 Smear Path Review PT INR APTT O2 Saturation ABG pH at Pt Temp ABG pCO2 at Pt Temp ABG pO2 at Pt Temp ABG HCO3 ABG Base Excess (Actual) VBG pH VBG pCO2 VBG pO2 VBG HCO3 VBG O2 Saturation VBG Base Excess Sodium Cancelled Potassium Chloride Carbon Dioxide Anion Gap BUN Creatinine Estim Creat Clear Calc Estimated GFR POC Glucose 115 Random Glucose Lactic Acid Lactic Acid F/U @ 2Hr Lactic Acid F/U @ 4Hr Calcium Phosphorus Magnesium Total Bilirubin AST ALT Alkaline Phosphatase Total Creatine Kinase B-Natriuretic Peptide Total Protein Albumin Urine Color Urine Appearance Urine pH Ur Specific [place] Urine Protein Urine Glucose (UA) Urine Ketones Urine Blood Urine Nitrite Ur Leukocyte Esterase Urine RBC Urine WBC Ur Squamous Epith Cells Urine Bacteria Hyaline Casts Granular Casts Ur Random Sodium Urine Creatinine Stl C. cayetanensis PCR Not Detected Stool Rotavirus A PCR Not Detected Stl Adenov F PCR Not Detected Stool Astrovirus (PCR) Not Detected Stool Campylobacter PCR Not Detected Stool Cryptosporidium PCR Not Detected Stl Sh Tox Pr E STEC PCR Not Detected Stool E coli O157 PCR Not applicable Stl Enterotoxigenic E PCR Not Detected Stool EPEC (PCR) Not Detected Stool EAEC (PCR) Not Detected Stl E. histolytica PCR Not Detected Stool Giardia Lamblia PCR Not Detected Stl P. shigelloides PCR Not Detected Stool Salmonella PCR Not Detected Stool Sapovirus (PCR) Not Detected Stl Shigella/EIEC PCR Not Detected St Y.enterocolitica PCR Not Detected Stool Vibrio (PCR) Not Detected Stl Vibrio cholerae PCR Not Detected Stl Norovirus GI/GII PCR Not Detected C. difficile Tox B Gene 02/13/23 02/13/23 02/13/23 06:16 06:16 06:16 WBC RBC Hgb Hct MCV MCH MCHC RDW Plt Count MPV Absolute Nucleated RBC Nucleated RBC % (auto) Smear Path Review PT INR APTT O2 Saturation ABG pH at Pt Temp ABG pCO2 at Pt Temp ABG pO2 at Pt Temp ABG HCO3 ABG Base Excess (Actual) VBG pH VBG pCO2 VBG pO2 VBG HCO3 VBG O2 Saturation VBG Base Excess Sodium 144 Potassium Cancelled 3.5 Chloride Cancelled 111 H Carbon Dioxide Cancelled Anion Gap BUN Creatinine Estim Creat Clear Calc Estimated GFR POC Glucose Random Glucose Lactic Acid Lactic Acid F/U @ 2Hr Lactic Acid F/U @ 4Hr Calcium Phosphorus Magnesium Total Bilirubin AST ALT Alkaline Phosphatase Total Creatine Kinase B-Natriuretic Peptide Total Protein Albumin Urine Color Urine Appearance Urine pH Ur Specific [place] Urine Protein Urine Glucose (UA) Urine Ketones Urine Blood Urine Nitrite Ur Leukocyte Esterase Urine RBC Urine WBC Ur Squamous Epith Cells Urine Bacteria Hyaline Casts Granular Casts Ur Random Sodium Urine Creatinine Stl C. cayetanensis PCR Stool Rotavirus A PCR Stl Adenov F 40/41 PCR Stool Astrovirus (PCR) Stool Campylobacter PCR Stool Cryptosporidium PCR Stl Sh Tox Pr E STEC PCR Stool E coli O157 PCR Stl Enterotoxigenic E PCR Stool EPEC (PCR) Stool EAEC (PCR) Stl E. histolytica PCR Stool Giardia Lamblia PCR Stl P. shigelloides PCR Stool Salmonella PCR Stool Sapovirus (PCR) Stl Shigella/EIEC PCR St Y.enterocolitica PCR Stool Vibrio (PCR) Stl Vibrio cholerae PCR Stl Norovirus GI/GII PCR C. difficile Tox B Gene 02/13/23 02/13/23 02/13/23 06:16 06:16 06:16 WBC RBC Hgb Hct MCV MCH MCHC RDW Plt Count MPV Absolute Nucleated RBC Nucleated RBC % (auto) Smear Path Review PT INR APTT O2 Saturation ABG pH at Pt Temp ABG pCO2 at Pt Temp ABG pO2 at Pt Temp ABG HCO3 ABG Base Excess (Actual) VBG pH VBG pCO2 VBG pO2 VBG HCO3 VBG O2 Saturation VBG Base Excess Sodium Potassium Chloride Carbon Dioxide 15 L Anion Gap Cancelled 22 H BUN Cancelled 30 H Creatinine Cancelled Estim Creat Clear Calc Estimated GFR POC Glucose Random Glucose Lactic Acid Lactic Acid F/U @ 2Hr Lactic Acid F/U @ 4Hr Calcium Phosphorus Magnesium Total Bilirubin AST ALT Alkaline Phosphatase Total Creatine Kinase B-Natriuretic Peptide Total Protein Albumin Urine Color Urine Appearance Urine pH Ur Specific [place] Urine Protein Urine Glucose (UA) Urine Ketones Urine Blood Urine Nitrite Ur Leukocyte Esterase Urine RBC Urine WBC Ur Squamous Epith Cells Urine Bacteria Hyaline Casts Granular Casts Ur Random Sodium Urine Creatinine Stl C. cayetanensis PCR Stool Rotavirus A PCR Stl Adenov F 40/41 PCR Stool Astrovirus (PCR) Stool Campylobacter PCR Stool Cryptosporidium PCR Stl Sh Tox Pr E STEC PCR Stool E coli O157 PCR Stl Enterotoxigenic E PCR Stool EPEC (PCR) Stool EAEC (PCR) Stl E. histolytica PCR Stool Giardia Lamblia PCR Stl P. shigelloides PCR Stool Salmonella PCR Stool Sapovirus (PCR) Stl Shigella/EIEC PCR St Y.enterocolitica PCR Stool Vibrio (PCR) Stl Vibrio cholerae PCR Stl Norovirus GI/GII PCR C. difficile Tox B Gene 02/13/23 02/13/23 02/13/23 06:16 06:16 06:16 WBC RBC Hgb Hct MCV MCH MCHC RDW Plt Count MPV Absolute Nucleated RBC Nucleated RBC % (auto) Smear Path Review PT INR APTT O2 Saturation ABG pH at Pt Temp ABG pCO2 at Pt Temp ABG pO2 at Pt Temp ABG HCO3 ABG Base Excess (Actual) VBG pH VBG pCO2 VBG pO2 VBG HCO3 VBG O2 Saturation VBG Base Excess Sodium Potassium Chloride Carbon Dioxide Anion Gap BUN Creatinine 2.21 H Estim Creat Clear Calc Cancelled 38.8 Estimated GFR Cancelled 29 POC Glucose Random Glucose Cancelled Lactic Acid Lactic Acid F/U @ 2Hr Lactic Acid F/U @ 4Hr Calcium Phosphorus Magnesium Total Bilirubin AST ALT Alkaline Phosphatase Total Creatine Kinase B-Natriuretic Peptide Total Protein Albumin Urine Color Urine Appearance Urine pH Ur Specific [place] Urine Protein Urine Glucose (UA) Urine Ketones Urine Blood Urine Nitrite Ur Leukocyte Esterase Urine RBC Urine WBC Ur Squamous Epith Cells Urine Bacteria Hyaline Casts Granular Casts Ur Random Sodium Urine Creatinine Stl C. cayetanensis PCR Stool Rotavirus A PCR Stl Adenov F PCR Stool Astrovirus (PCR) Stool Campylobacter PCR Stool Cryptosporidium PCR Stl Sh Tox Pr E STEC PCR Stool E coli O157 PCR Stl Enterotoxigenic E PCR Stool EPEC (PCR) Stool EAEC (PCR) Stl E. histolytica PCR Stool Giardia Lamblia PCR Stl P. shigelloides PCR Stool Salmonella PCR Stool Sapovirus (PCR) Stl Shigella/EIEC PCR St Y.enterocolitica PCR Stool Vibrio (PCR) Stl Vibrio cholerae PCR Stl Norovirus GI/GII PCR C. difficile Tox B Gene 02/13/23 02/13/23 02/13/23 06:16 06:16 06:16 WBC RBC Hgb Hct MCV MCH MCHC RDW Plt Count MPV Absolute Nucleated RBC Nucleated RBC % (auto) Smear Path Review PT INR APTT O2 Saturation ABG pH at Pt Temp ABG pCO2 at Pt Temp ABG pO2 at Pt Temp ABG HCO3 ABG Base Excess (Actual) VBG pH VBG pCO2 VBG pO2 VBG HCO3 VBG O2 Saturation VBG Base Excess Sodium Potassium Chloride Carbon Dioxide Anion Gap BUN Creatinine Estim Creat Clear Calc Estimated GFR POC Glucose Random Glucose 121 H Lactic Acid 4.4 H* Lactic Acid F/U @ 2Hr Lactic Acid F/U @ 4Hr Calcium Cancelled 8.5 D Phosphorus Cancelled 5.9 H Magnesium Cancelled Total Bilirubin AST ALT Alkaline Phosphatase Total Creatine Kinase B-Natriuretic Peptide Total Protein Albumin Urine Color Urine Appearance Urine pH Ur Specific [place] Urine Protein Urine Glucose (UA) Urine Ketones Urine Blood Urine Nitrite Ur Leukocyte Esterase Urine RBC Urine WBC Ur Squamous Epith Cells Urine Bacteria Hyaline Casts Granular Casts Ur Random Sodium Urine Creatinine Stl C. cayetanensis PCR Stool Rotavirus A PCR Stl Adenov F PCR Stool Astrovirus (PCR) Stool Campylobacter PCR Stool Cryptosporidium PCR Stl Sh Tox Pr E STEC PCR Stool E coli O157 PCR Stl Enterotoxigenic E PCR Stool EPEC (PCR) Stool EAEC (PCR) Stl E. histolytica PCR Stool Giardia Lamblia PCR Stl P. shigelloides PCR Stool Salmonella PCR Stool Sapovirus (PCR) Stl Shigella/EIEC PCR St Y.enterocolitica PCR Stool Vibrio (PCR) Stl Vibrio cholerae PCR Stl Norovirus GI/GII PCR C. difficile Tox B Gene 02/13/23 02/13/23 02/13/23 06:16 06:16 06:17 WBC RBC Hgb Hct MCV MCH MCHC RDW Plt Count MPV Absolute Nucleated RBC Nucleated RBC % (auto) Smear Path Review PT INR APTT O2 Saturation ABG pH at Pt Temp ABG pCO2 at Pt Temp ABG pO2 at Pt Temp ABG HCO3 ABG Base Excess (Actual) VBG pH 7.09 L* VBG pCO2 57 VBG pO2 40 VBG HCO3 17 L VBG O2 Saturation 65.0 VBG Base Excess -12.3 Sodium Potassium Chloride Carbon Dioxide Anion Gap BUN Creatinine Estim Creat Clear Calc Estimated GFR POC Glucose Random Glucose Lactic Acid Lactic Acid F/U @ 2Hr Lactic Acid F/U @ 4Hr Calcium Phosphorus Magnesium 1.8 Total Bilirubin 0.6 AST 29 ALT 27 Alkaline Phosphatase 51 Total Creatine Kinase B-Natriuretic Peptide 444 H Total Protein 6.4 L Albumin Cancelled 3.3 L Urine Color Urine Appearance Urine pH Ur Specific [place] Urine Protein Urine Glucose (UA) Urine Ketones Urine Blood Urine Nitrite Ur Leukocyte Esterase Urine RBC Urine WBC Ur Squamous Epith Cells Urine Bacteria Hyaline Casts Granular Casts Ur Random Sodium Urine Creatinine Stl C. cayetanensis PCR Stool Rotavirus A PCR Stl Adenov F 40/41 PCR Stool Astrovirus (PCR) Stool Campylobacter PCR Stool Cryptosporidium PCR Stl Sh Tox Pr E STEC PCR Stool E coli O157 PCR Stl Enterotoxigenic E PCR Stool EPEC (PCR) Stool EAEC (PCR) Stl E. histolytica PCR Stool Giardia Lamblia PCR Stl P. shigelloides PCR Stool Salmonella PCR Stool Sapovirus (PCR) Stl Shigella/EIEC PCR St Y.enterocolitica PCR Stool Vibrio (PCR) Stl Vibrio cholerae PCR Stl Norovirus GI/GII PCR C. difficile Tox B Gene 02/13/23 02/13/23 02/13/23 09:05 09:09 10:33 WBC RBC Hgb Hct MCV MCH MCHC RDW Plt Count MPV Absolute Nucleated RBC Nucleated RBC % (auto) Smear Path Review PT 19.8 H INR 1.6 H APTT 39.3 H O2 Saturation 94.0 ABG pH at Pt Temp 7.23 L ABG pCO2 at Pt Temp 35 ABG pO2 at Pt Temp 70 L ABG HCO3 15 L ABG Base Excess (Actual) -11.2 VBG pH VBG pCO2 VBG pO2 VBG HCO3 VBG O2 Saturation VBG Base Excess Sodium Potassium Chloride Carbon Dioxide Anion Gap BUN Creatinine Estim Creat Clear Calc Estimated GFR POC Glucose Random Glucose Lactic Acid Lactic Acid F/U @ 2Hr 4.8 H* Lactic Acid F/U @ 4Hr Calcium Phosphorus Magnesium Total Bilirubin AST ALT Alkaline Phosphatase Total Creatine Kinase B-Natriuretic Peptide Total Protein Albumin Urine Color Urine Appearance Urine pH Ur Specific [place] Urine Protein Urine Glucose (UA) Urine Ketones Urine Blood Urine Nitrite Ur Leukocyte Esterase Urine RBC Urine WBC Ur Squamous Epith Cells Urine Bacteria Hyaline Casts Granular Casts Ur Random Sodium Urine Creatinine Stl C. cayetanensis PCR Stool Rotavirus A PCR Stl Adenov F 40/41 PCR Stool Astrovirus (PCR) Stool Campylobacter PCR Stool Cryptosporidium PCR Stl Sh Tox Pr E STEC PCR Stool E coli O157 PCR Stl Enterotoxigenic E PCR Stool EPEC (PCR) Stool EAEC (PCR) Stl E. histolytica PCR Stool Giardia Lamblia PCR Stl P. shigelloides PCR Stool Salmonella PCR Stool Sapovirus (PCR) Stl Shigella/EIEC PCR St Y.enterocolitica PCR Stool Vibrio (PCR) Stl Vibrio cholerae PCR Stl Norovirus GI/GII PCR C. difficile Tox B Gene Microbiology Microbiology Results: Microbiology 02/11/23 16:15 Blood - Venous Blood Culture - Final Coag negative Staphylococcus 02/12/23 06:07 Blood - Venous Blood Culture - Preliminary No growth after 24 hours. 02/12/23 06:07 Blood - Venous Blood Culture - Preliminary No growth after 24 hours. 02/11/23 16:24 Blood - Venous Blood Culture - Preliminary No growth after 24 hours. Progress Note: A&P Assessment and plan (1) Acute cholecystitis: Status: Acute (2) ABEL (acute kidney injury): Status: Acute (3) Bacteremia: Status: Acute (4) Morbid obesity: Status: Acute (5) Rheumatoid arthritis: Status: Acute Plan Assessment: 72-year-old gentleman with underlying morbid obesity and rheumatoid a 3 status admitted with acute cholecystitis further complicated by bacteremia with septic shock and etabolic acidosis Plan: Neuro: No acute issues. Cardiac: septic shock, continue to titrate of pressor support as tolerated. Pulmonary: Acute hypoxic respiratory failure secondary to pulmonary edema from resuscitation of septic shock. Continue to titrate off supplemental oxygen as tolerated. Renal: Acute renal failure, likely secondary to ATN from septic shock. Oliguric. Continue to monitor renal indices and urine output. Endo: No acute issues. GI: Acute cholecystitis. General surgery service care appreciated. Patient is scheduled for cholecystostomy. ID: No acute issues Heme/Onc: No acute issues. Psych: No acute issues. Miscellaneous: No acute issues. Prophylaxis: Pneumatic compression Diet: NPO for procedure Critical care time spent: 60 minutes excluding separately billable procedures. Quality Stroke Does the patient have a stroke diagnosis?: No VTE Prior VTE?: Yes VTE Risk Level:: Surgical - high VTE Device Contraindication: N/A - Device Ordered VTE Drug Contraindication: N/A - Med Ordered
--- NOTE | 2023-02-13 13:16 | MHC.CM.PN ---
EMR REVIEWED AND PER MD ROUNDS, PT IS NOT MEDICALLY CLEARED FOR DC. REMAINS IN ICU ON PRESSOR SUPPORT. CM WILL CONTINUE TO FOLLOW FOR DC PLAN/NEEDS.
[2023-02-13] MEDS: Norepinephrine Bitartrate/D5W 8 MG/250 ML PLAST..BAG 81 MG IV (13:21)
[2023-02-13] MEDS: fentaNYL citrate/PF 100 MCG/2 ML VIAL 25 MCG IVPUSH ×2 (14:57→23:17)
[2023-02-13] MEDS: Norepinephrine Bitartrate/D5W 8 MG/250 ML PLAST..BAG 101.25 MG IV (16:25)
[2023-02-13 16:31] LABS: VBG Base Excess -10.2 mmol/L; VBG HCO3 19 mmol/L (22-26); VBG pCO2 53 mmHg; VBG pH 7.15 (7.32-7.43); VBG pO2 50 mmHg
[2023-02-13] MEDS: Sodium Bicarbonate 8.4% 50 MEQ/50 ML SYRINGE IVPUSH ×2 (16:45→19:50)
[2023-02-13 17:01] LABS: Venous Blood Gas Refer to POC result
--- NOTE | 2023-02-13 18:15 | P.PNNP_ITS ---
Subjective Subjective Date of Service: 02/13/23 Principal diagnosis: Acute Cholecystitis and ABEL Interval history: Seen and examiend, events noted Xfer to ICU this am with Septic Shock Now on vent/pressors Poor UOP noted Physical Exam 2 Vital Signs: Vital Signs: Last Vital Signs Temp 97.8 F 02/13/23 08:00 Pulse 121 H 02/13/23 18:00 Resp 18 02/13/23 18:00 BP 111/53 L 02/13/23 18:00 Pulse Ox 94 02/13/23 18:00 O2 Del Method BiPAP 02/13/23 18:00 O2 Flow Rate 4 02/13/23 16:00 FiO2 35 02/13/23 18:00 BMI result Body Mass Index 46.6 Const: General: no acute distress, alert, awake, ill appearing, lethargic ( Arousable) and tired appearing Nutritional Appearance: obese O rientation/consciousness: patient oriented x3 and lethargic ( Arousable) L imitations: other limitations (Nonambulatory) HEENT: Other: CPAP in place, facial swelling Head: Yes normocephalic and Yes atraumatic Ears: hearing grossly normal bilaterally Eyes: Sclerae: sclerae normal EOM: EOMs intact bilaterally Neck: Neck: Yes no lymphadenopathy, Yes trachea midline and Yes supple Resp: Other: breathing with assistance of CPAP Effort & Inspection: normal respiratory effort, no audible wheezes, no cough, no respiratory distress and tachypneic Auscultation: clear to auscultation bilaterally and diminished lung sounds Cardio: Rate: tachycardic Rhythm: regular rhythm Heart sounds: no gallops, no murmurs and no rubs GI: Other: obese, distended, tender right upper quadrant Inspection: Yes Abdominal panniculus present and Yes obesity Palpation (GI): Soft to palpation, Tenderness to palpation present (GI) ( right upper quadrant) in the epigastrum, in the RUQ and Gomez's sign positive; with no rebound tenderness, no guarding, not rigid and Other GI palpation findings present ( Nontender) Percussion: Yes normal to percussion Auscultation: n ormal bowel sounds Rectal Exam - Male: Yes deferred Neuro: General: patient oriented x3 Extrem: Other: peripheral edema General: Yes no pedal edema (2+ bilateral), No clubbing, No cyanosis and Yes edema ( trace bilateral) Objective Data Labs 02/13/23 06:16 02/13/23 06:16 Labs: Laboratory Results - last 24 hr 02/12/23 02/12/23 02/12/23 14:40 21:45 Unknown WBC RBC Hgb Hct MCV MCH MCHC RDW Plt Count MPV Absolute Nucleated RBC Nucleated RBC % (auto) PT INR APTT O2 Saturation ABG pH at Pt Temp ABG pCO2 at Pt Temp ABG pO2 at Pt Temp ABG HCO3 ABG Base Excess (Actual) VBG pH VBG pCO2 VBG pO2 VBG HCO3 VBG O2 Saturation VBG Base Excess Sodium Potassium Chloride Carbon Dioxide Anion Gap BUN Creatinine Estim Creat Clear Calc Estimated GFR POC Glucose Random Glucose Lactic Acid Lactic Acid F/U @ 2Hr Lactic Acid F/U @ 4Hr Calcium Phosphorus Magnesium Total Bilirubin AST ALT Alkaline Phosphatase B-Natriuretic Peptide Total Protein Albumin Ur Random Sodium 45.0 Urine Creatinine 89.98 Stl C. cayetanensis PCR Not Detected Stool Rotavirus A PCR Not Detected Stl Adenov F 40/41 PCR Not Detected Stool Astrovirus (PCR) Not Detected Stool Campylobacter PCR Not Detected Stool Cryptosporidium PCR Not Detected Stl Sh Tox Pr E STEC PCR Not Detected Stool E coli O157 PCR Not applicable Stl Enterotoxigenic E PCR Not Detected Stool EPEC (PCR) Not Detected Stool EAEC (PCR) Not Detected Stl E. histolytica PCR Not Detected Stool Giardia Lamblia PCR Not Detected Stl P. shigelloides PCR Not Detected Stool Salmonella PCR Not Detected Stool Sapovirus (PCR) Not Detected Stl Shigella/EIEC PCR Not Detected St Y.enterocolitica PCR Not Detected Stool Vibrio (PCR) Not Detected Stl Vibrio cholerae PCR Not Detected Stl Norovirus GI/GII PCR Not Detected C. difficile Tox B Gene NEGATIVE 02/13/23 02/13/23 02/13/23 05:17 06:16 06:16 WBC 20.0 H RBC 4.37 L Hgb 13.4 L Hct 44.9 MCV 102.7 H MCH 30.7 MCHC 29.8 L RDW 17.1 H Plt Count 264 MPV 9.8 Absolute Nucleated RBC 0.000 Nucleated RBC % (auto) 0.0 PT INR APTT O2 Saturation ABG pH at Pt Temp ABG pCO2 at Pt Temp ABG pO2 at Pt Temp ABG HCO3 ABG Base Excess (Actual) VBG pH VBG pCO2 VBG pO2 VBG HCO3 VBG O2 Saturation VBG Base Excess Sodium Cancelled 144 Potassium Cancelled Chloride Carbon Dioxide Anion Gap BUN Creatinine Estim Creat Clear Calc Estimated GFR POC Glucose 115 Random Glucose Lactic Acid Lactic Acid F/U @ 2Hr Lactic Acid F/U @ 4Hr Calcium Phosphorus Magnesium Total Bilirubin AST ALT Alkaline Phosphatase B-Natriuretic Peptide Total Protein Albumin Ur Random Sodium Urine Creatinine Stl C. cayetanensis PCR Stool Rotavirus A PCR Stl Adenov F PCR Stool Astrovirus (PCR) Stool Campylobacter PCR Stool Cryptosporidium PCR Stl Sh Tox Pr E STEC PCR Stool E coli O157 PCR Stl Enterotoxigenic E PCR Stool EPEC (PCR) Stool EAEC (PCR) Stl E. histolytica PCR Stool Giardia Lamblia PCR Stl P. shigelloides PCR Stool Salmonella PCR Stool Sapovirus (PCR) Stl Shigella/EIEC PCR St Y.enterocolitica PCR Stool Vibrio (PCR) Stl Vibrio cholerae PCR Stl Norovirus GI/GII PCR C. difficile Tox B Gene 02/13/23 02/13/23 02/13/23 06:16 06:16 06:16 WBC RBC Hgb Hct MCV MCH MCHC RDW Plt Count MPV Absolute Nucleated RBC Nucleated RBC % (auto) PT INR APTT O2 Saturation ABG pH at Pt Temp ABG pCO2 at Pt Temp ABG pO2 at Pt Temp ABG HCO3 ABG Base Excess (Actual) VBG pH VBG pCO2 VBG pO2 VBG HCO3 VBG O2 Saturation VBG Base Excess Sodium Potassium 3.5 Chloride Cancelled 111 H Carbon Dioxide Cancelled 15 L Anion Gap Cancelled BUN Creatinine Estim Creat Clear Calc Estimated GFR POC Glucose Random Glucose Lactic Acid Lactic Acid F/U @ 2Hr Lactic Acid F/U @ 4Hr Calcium Phosphorus Magnesium Total Bilirubin AST ALT Alkaline Phosphatase B-Natriuretic Peptide Total Protein Albumin Ur Random Sodium Urine Creatinine Stl C. cayetanensis PCR Stool Rotavirus A PCR Stl Adenov F PCR Stool Astrovirus (PCR) Stool Campylobacter PCR Stool Cryptosporidium PCR Stl Sh Tox Pr E STEC PCR Stool E coli O157 PCR Stl Enterotoxigenic E PCR Stool EPEC (PCR) Stool EAEC (PCR) Stl E. histolytica PCR Stool Giardia Lamblia PCR Stl P. shigelloides PCR Stool Salmonella PCR Stool Sapovirus (PCR) Stl Shigella/EIEC PCR St Y.enterocolitica PCR Stool Vibrio (PCR) Stl Vibrio cholerae PCR Stl Norovirus GI/GII PCR C. difficile Tox B Gene 02/13/23 02/13/23 02/13/23 06:16 06:16 06:16 WBC RBC Hgb Hct MCV MCH MCHC RDW Plt Count MPV Absolute Nucleated RBC Nucleated RBC % (auto) PT INR APTT O2 Saturation ABG pH at Pt Temp ABG pCO2 at Pt Temp ABG pO2 at Pt Temp ABG HCO3 ABG Base Excess (Actual) VBG pH VBG pCO2 VBG pO2 VBG HCO3 VBG O2 Saturation VBG Base Excess Sodium Potassium Chloride Carbon Dioxide Anion Gap 22 H BUN Cancelled 30 H Creatinine Cancelled 2.21 H Estim Creat Clear Calc Cancelled Estimated GFR POC Glucose Random Glucose Lactic Acid Lactic Acid F/U @ 2Hr Lactic Acid F/U @ 4Hr Calcium Phosphorus Magnesium Total Bilirubin AST ALT Alkaline Phosphatase B-Natriuretic Peptide Total Protein Albumin Ur Random Sodium Urine Creatinine Stl C. cayetanensis PCR Stool Rotavirus A PCR Stl Adenov F 40/41 PCR Stool Astrovirus (PCR) Stool Campylobacter PCR Stool Cryptosporidium PCR Stl Sh Tox Pr E STEC PCR Stool E coli O157 PCR Stl Enterotoxigenic E PCR Stool EPEC (PCR) Stool EAEC (PCR) Stl E. histolytica PCR Stool Giardia Lamblia PCR Stl P. shigelloides PCR Stool Salmonella PCR Stool Sapovirus (PCR) Stl Shigella/EIEC PCR St Y.enterocolitica PCR Stool Vibrio (PCR) Stl Vibrio cholerae PCR Stl Norovirus GI/GII PCR C. difficile Tox B Gene 02/13/23 02/13/23 02/13/23 06:16 06:16 06:16 WBC RBC Hgb Hct MCV MCH MCHC RDW Plt Count MPV Absolute Nucleated RBC Nucleated RBC % (auto) PT INR APTT O2 Saturation ABG pH at Pt Temp ABG pCO2 at Pt Temp ABG pO2 at Pt Temp ABG HCO3 ABG Base Excess (Actual) VBG pH VBG pCO2 VBG pO2 VBG HCO3 VBG O2 Saturation VBG Base Excess Sodium Potassium Chloride Carbon Dioxide Anion Gap BUN Creatinine Estim Creat Clear Calc 38.8 Estimated GFR Cancelled 29 POC Glucose Random Glucose Cancelled 121 H Lactic Acid 4.4 H* Lactic Acid F/U @ 2Hr Lactic Acid F/U @ 4Hr Calcium Cancelled Phosphorus Magnesium Total Bilirubin AST ALT Alkaline Phosphatase B-Natriuretic Peptide Total Protein Albumin Ur Random Sodium Urine Creatinine Stl C. cayetanensis PCR Stool Rotavirus A PCR Stl Adenov F 40/41 PCR Stool Astrovirus (PCR) Stool Campylobacter PCR Stool Cryptosporidium PCR Stl Sh Tox Pr E STEC PCR Stool E coli O157 PCR Stl Enterotoxigenic E PCR Stool EPEC (PCR) Stool EAEC (PCR) Stl E. histolytica PCR Stool Giardia Lamblia PCR Stl P. shigelloides PCR Stool Salmonella PCR Stool Sapovirus (PCR) Stl Shigella/EIEC PCR St Y.enterocolitica PCR Stool Vibrio (PCR) Stl Vibrio cholerae PCR Stl Norovirus GI/GII PCR C. difficile Tox B Gene 02/13/23 02/13/23 02/13/23 06:16 06:16 06:16 WBC RBC Hgb Hct MCV MCH MCHC RDW Plt Count MPV Absolute Nucleated RBC Nucleated RBC % (auto) PT INR APTT O2 Saturation ABG pH at Pt Temp ABG pCO2 at Pt Temp ABG pO2 at Pt Temp ABG HCO3 ABG Base Excess (Actual) VBG pH VBG pCO2 VBG pO2 VBG HCO3 VBG O2 Saturation VBG Base Excess Sodium Potassium Chloride Carbon Dioxide Anion Gap BUN Creatinine Estim Creat Clear Calc Estimated GFR POC Glucose Random Glucose Lactic Acid Lactic Acid F/U @ 2Hr Lactic Acid F/U @ 4Hr Calcium 8.5 D Phosphorus Cancelled 5.9 H Magnesium Cancelled 1.8 Total Bilirubin 0.6 AST 29 ALT 27 Alkaline Phosphatase 51 B-Natriuretic Peptide 444 H Total Protein 6.4 L Albumin Cancelled Ur Random Sodium Urine Creatinine Stl C. cayetanensis PCR Stool Rotavirus A PCR Stl Adenov F 40/41 PCR Stool Astrovirus (PCR) Stool Campylobacter PCR Stool Cryptosporidium PCR Stl Sh Tox Pr E STEC PCR Stool E coli O157 PCR Stl Enterotoxigenic E PCR Stool EPEC (PCR) Stool EAEC (PCR) Stl E. histolytica PCR Stool Giardia Lamblia PCR Stl P. shigelloides PCR Stool Salmonella PCR Stool Sapovirus (PCR) Stl Shigella/EIEC PCR St Y.enterocolitica PCR Stool Vibrio (PCR) Stl Vibrio cholerae PCR Stl Norovirus GI/GII PCR C. difficile Tox B Gene 02/13/23 02/13/23 02/13/23 06:16 06:17 09:05 WBC RBC Hgb Hct MCV MCH MCHC RDW Plt Count MPV Absolute Nucleated RBC Nucleated RBC % (auto) PT INR APTT O2 Saturation ABG pH at Pt Temp ABG pCO2 at Pt Temp ABG pO2 at Pt Temp ABG HCO3 ABG Base Excess (Actual) VBG pH 7.09 L* VBG pCO2 57 VBG pO2 40 VBG HCO3 17 L VBG O2 Saturation 65.0 VBG Base Excess -12.3 Sodium Potassium Chloride Carbon Dioxide Anion Gap BUN Creatinine Estim Creat Clear Calc Estimated GFR POC Glucose Random Glucose Lactic Acid Lactic Acid F/U @ 2Hr 4.8 H* Lactic Acid F/U @ 4Hr Calcium Phosphorus Magnesium Total Bilirubin AST ALT Alkaline Phosphatase B-Natriuretic Peptide Total Protein Albumin 3.3 L Ur Random Sodium Urine Creatinine Stl C. cayetanensis PCR Stool Rotavirus A PCR Stl Adenov F 40/41 PCR Stool Astrovirus (PCR) Stool Campylobacter PCR Stool Cryptosporidium PCR Stl Sh Tox Pr E STEC PCR Stool E coli O157 PCR Stl Enterotoxigenic E PCR Stool EPEC (PCR) Stool EAEC (PCR) Stl E. histolytica PCR Stool Giardia Lamblia PCR Stl P. shigelloides PCR Stool Salmonella PCR Stool Sapovirus (PCR) Stl Shigella/EIEC PCR St Y.enterocolitica PCR Stool Vibrio (PCR) Stl Vibrio cholerae PCR Stl Norovirus GI/GII PCR C. difficile Tox B Gene 02/13/23 02/13/23 02/13/23 09:09 10:33 11:45 WBC RBC Hgb Hct MCV MCH MCHC RDW Plt Count MPV Absolute Nucleated RBC Nucleated RBC % (auto) PT 19.8 H INR 1.6 H APTT 39.3 H O2 Saturation 94.0 ABG pH at Pt Temp 7.23 L ABG pCO2 at Pt Temp 35 ABG pO2 at Pt Temp 70 L ABG HCO3 15 L ABG Base Excess (Actual) -11.2 VBG pH VBG pCO2 VBG pO2 VBG HCO3 VBG O2 Saturation VBG Base Excess Sodium Potassium Chloride Carbon Dioxide Anion Gap BUN Creatinine Estim Creat Clear Calc Estimated GFR POC Glucose Random Glucose Lactic Acid Lactic Acid F/U @ 2Hr Lactic Acid F/U @ 4Hr 5.0 H* Calcium Phosphorus Magnesium Total Bilirubin AST ALT Alkaline Phosphatase B-Natriuretic Peptide Total Protein Albumin Ur Random Sodium Urine Creatinine Stl C. cayetanensis PCR Stool Rotavirus A PCR Stl Adenov F PCR Stool Astrovirus (PCR) Stool Campylobacter PCR Stool Cryptosporidium PCR Stl Sh Tox Pr E STEC PCR Stool E coli O157 PCR Stl Enterotoxigenic E PCR Stool EPEC (PCR) Stool EAEC (PCR) Stl E. histolytica PCR Stool Giardia Lamblia PCR Stl P. shigelloides PCR Stool Salmonella PCR Stool Sapovirus (PCR) Stl Shigella/EIEC PCR St Y.enterocolitica PCR Stool Vibrio (PCR) Stl Vibrio cholerae PCR Stl Norovirus GI/GII PCR C. difficile Tox B Gene 02/13/23 16:25 WBC RBC Hgb Hct MCV MCH MCHC RDW Plt Count MPV Absolute Nucleated RBC Nucleated RBC % (auto) PT INR APTT O2 Saturation ABG pH at Pt Temp ABG pCO2 at Pt Temp ABG pO2 at Pt Temp ABG HCO3 ABG Base Excess (Actual) VBG pH 7.15 L* VBG pCO2 53 VBG pO2 50 VBG HCO3 19 L VBG O2 Saturation 78.0 VBG Base Excess -10.2 Sodium Potassium Chloride Carbon Dioxide Anion Gap BUN Creatinine Estim Creat Clear Calc Estimated GFR POC Glucose Random Glucose Lactic Acid Lactic Acid F/U @ 2Hr Lactic Acid F/U @ 4Hr Calcium Phosphorus Magnesium Total Bilirubin AST ALT Alkaline Phosphatase B-Natriuretic Peptide Total Protein Albumin Ur Random Sodium Urine Creatinine Stl C. cayetanensis PCR Stool Rotavirus A PCR Stl Adenov F PCR Stool Astrovirus (PCR) Stool Campylobacter PCR Stool Cryptosporidium PCR Stl Sh Tox Pr E STEC PCR Stool E coli O157 PCR Stl Enterotoxigenic E PCR Stool EPEC (PCR) Stool EAEC (PCR) Stl E. histolytica PCR Stool Giardia Lamblia PCR Stl P. shigelloides PCR Stool Salmonella PCR Stool Sapovirus (PCR) Stl Shigella/EIEC PCR St Y.enterocolitica PCR Stool Vibrio (PCR) Stl Vibrio cholerae PCR Stl Norovirus GI/GII PCR C. difficile Tox B Gene Microbiology Microbiology Results: Microbiology 02/11/23 16:15 Blood - Venous Blood Culture - Final Coag negative Staphylococcus 02/12/23 06:07 Blood - Venous Blood Culture - Preliminary No growth after 24 hours. 02/12/23 06:07 Blood - Venous Blood Culture - Preliminary No growth after 24 hours. 02/11/23 16:24 Blood - Venous Blood Culture - Preliminary No growth after 24 hours. Procedures Date of Service Date of Service: 02/13/23 Assessment & Plan Assessment and plan (1) Acute cholecystitis: Status: Acute (2) ABEL (acute kidney injury): Status: Acute (3) Bacteremia: Status: Acute (4) Morbid obesity: Status: Acute (5) Rheumatoid arthritis: Status: Acute Plan 72-year-old gentleman underlying morbid obesity, DVT on Eliquis, obstructive sleep, rheumatoid arthritis, hypothyroidism admitted 02/11/2023 for acute cholecystitis. Patient covered empirically with Zosyn and has been evaluated by General surgery with plan for possible cholecystostomy versus cholecystectomy. Overnight patient with developed septic shock requiring initiation of pressor support and transfer to intensive care unit. Blood cultures growing Staphylococcus. 1.Oliguric ABEL: c/w multifact ATN from SEPSIS 2. Septic Shock: on broad spec ABx, Staph bact and acute vincenzo 3. 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 Progress Note: Quality Stroke Does the patient have a stroke diagnosis?: No
[2023-02-13] MEDS: DAPTOmycin 850 MG in 0.9 % Sodium Chloride 50 ML 134 MG IV (18:24)
[2023-02-13] MEDS: Norepinephrine Bitartrate/D5W 8 MG/250 ML PLAST..BAG 111.38 MG IV (18:35)
[2023-02-13] MEDS: Vasopressin 20 UNIT/100 ML INFUS..BTL 12 UNIT IV (18:37)
--- NOTE | 2023-02-13 19:29 | PC.NURSE ---
Assumed care at 0700, patient hypotensive SBP 70's, increased Levophed drip to keep MAP >65. Patient brought to IR for vincenzo drain placement. Patient continue to be hypotensive increasing Levophed to 0.44 mcg, Dr Negron notifed and Vasopressin added. Right IJ TLC placed today. Receiving IV abx. On Bipap most of day 12/5 Fio2 35%. Patient continuing to ask for food and water, trial on 4 liters oxymask for 1 hour and VBG worsened with critical PH. Placed back on bipap and bicarb amp given. quality assurance monitor Sinus tachycardia. 25 mcg IV Fentanyl given for pain in right abd with no relief. Oliguria via MD rex aware. Nephrology following. Dr Barker seen patient this am. Echo done today. Lactic trending up from 4.4 to 4.8 to 5.0, Dr Negron aware, no additional interventions. Code status changed from DNR/DNI to Full code per patient's wishes at this time. Sister in law updated, questions and concerns answered
[2023-02-13 20:18] LABS: VBG Base Excess -5.4 mmol/L; VBG HCO3 22 mmol/L (22-26); VBG pCO2 53 mmHg; VBG pH 7.22 (7.32-7.43); VBG pO2 59 mmHg
[2023-02-13 20:19] LABS: Venous Blood Gas Refer to POC result
[2023-02-13 20:39] LABS: Anion Gap 20 (12-20); Blood Urea Nitrogen 32 mg/dL (9-16); Calcium 8.4 mg/dL (8.4-10.2); Carbon Dioxide 21 mmol/L (22-29); Chloride 107 mmol/L (96-108); Creatinine Clr Calc Pharmacy 34.3; Estimated Glomerular Filt Rate 25; Glucose Random 165 mg/dL (60-115); Magnesium 1.6 mg/dL (1.6-2.6); Phosphorus 6.4 mg/dL (2.7-4.5); Potassium 3.3 mmol/L (3.3-5.1); Sodium 145 mmol/L (135-145)
[2023-02-13] MEDS: Norepinephrine Bitartrate/D5W 8 MG/250 ML PLAST..BAG 106.31 MG IV (21:10)
[2023-02-13] MEDS: Potassium Chloride/H20 40 MEQ/100 ML PIGGYBACK 50 MEQ IV (22:02)
[2023-02-13] MEDS: Norepinephrine Bitartrate/D5W 8 MG/250 ML PLAST..BAG 91.13 MG IV (23:24)
[2023-02-14] VITALS (56 sets, daily range): BP systolic 65–178; BP diastolic 39–153; PULSE 72–141; RESP 15–28; TEMP 36.2–36.4; O2SAT 85–95
[2023-02-14] MEDS: Sodium Bicarbonate 8.4% 50 MEQ/50 ML SYRINGE IVPUSH ×2 (00:11→04:14)
[2023-02-14] MEDS: Vasopressin 20 UNIT/100 ML INFUS..BTL 12 UNIT IV ×3 (01:27→17:00)
[2023-02-14] MEDS: Norepinephrine Bitartrate/D5W 8 MG/250 ML PLAST..BAG 96.19 MG IV ×3 (01:56→06:38)
[2023-02-14] MEDS: Piperacillin Sodium/Tazobactam 3.375 GM in 0.9 % Sodium Chloride 50 ML IV ×4 (03:06→20:03)
[2023-02-14 05:02] LABS: VBG Base Excess -3.3 mmol/L; VBG HCO3 22 mmol/L (22-26); VBG pCO2 43 mmHg; VBG pH 7.32 (7.32-7.43); VBG pO2 46 mmHg
[2023-02-14 05:02] LABS: Basophils Absolute Auto 0.1 X10*3/uL (0.0-0.2); Basophils Percent Auto 0.5 % (0-2); Eosinophils Absolute Auto 0.1 X10*3/uL (0.0-0.4); Eosinophils Percent Auto 0.7 % (0-4); Hemoglobin 12.6 g/dl (14.0-18.0); Imm Gran Abs Auto 0.11 X10*3/uL (0.00-0.03); Imm Gran Pct Auto 0.7 % (0.0-0.4); Lymphocytes Absolute Auto 0.9 X10*3/uL (1.2-4.9); Lymphocytes Percent Auto 5.5 % (20-40); MANUAL DIFF FLAG SCAN; Mean Corpuscular HGB Conc 30.7 g/dl (31.0-36.0); Mean Corpuscular Hemoglobin 30.1 pg (27.0-33.0); Mean Corpuscular Volume 98.1 fL (80.0-98.0); Mean Platelet Volume 9.8 fL (9.4-12.4); Monocytes Absolute Auto 0.3 X10*3/uL (0.1-1.2); Monocytes Percent Auto 1.8 % (2-11); NRBC Pct Auto 0.4 /100WBC (0.0-0.2); Neutrophils Absolute Auto 15.1 x10*3/uL (2.0-8.3); Neutrophils Percent Auto 90.8 % (45-73); Platelet Count 232 X10*3/uL (160-400); Red Blood Count 4.18 X10*6/uL (4.60-5.80); Red Cell Distribution Width 17.4 % (11.0-16.0); SCAN SMEAR FLAG 1; White Blood Count 16.6 X10*3/uL (4.8-10.8)
[2023-02-14 05:05] LABS: SLIDE REVIEW VERIFIED
[2023-02-14 05:23] LABS: Alanine Aminotransferase 22 U/L (0-40); Albumin Level 2.6 g/dL (3.5-5.0); Alkaline Phosphatase 66 U/L (39-117); Anion Gap 21 (12-20); Aspartate Amino Transferase 30 U/L (5-37); Bilirubin Total 0.4 mg/dL (0.0-1.0); Blood Urea Nitrogen 34 mg/dL (9-16); Calcium 8.5 mg/dL (8.4-10.2); Carbon Dioxide 21 mmol/L (22-29); Chloride 106 mmol/L (96-108); Creatinine Clr Calc Pharmacy 34.2; Estimated Glomerular Filt Rate 25; Glucose Random 145 mg/dL (60-115); Magnesium 1.6 mg/dL (1.6-2.6); Phosphorus 5.7 mg/dL (2.7-4.5); Potassium 3.6 mmol/L (3.3-5.1); Sodium 144 mmol/L (135-145); Total Protein 5.5 g/dL (6.5-8.0)
[2023-02-14] MEDS: ondansetron HCL 4 MG/2 ML VIAL IVPUSH (05:30)
--- NOTE | 2023-02-14 06:02 | PC.NURSE ---
PT WAS CALLING OUT STATING HE HAD TO COUGH UP PHLEGM. BIPAP TAKEN OFF AND PT STARTEDTO EXPECTORATE SPUTUM AND STARTED VOMITTING BILE. #16 FR NGT INSERTED WITHOUT DIFFICULTY AND ATTATCHED TO SUCTION WITH 1 LITER OF BILE RETURNED IMMEDIATELY. PT VOMITTED ABOUT 300 ML BEFORE NGT. OXYMASK ON AT 5L AND PT MAINTAINING O2 SATS OF 92%. MONITOR SHOWS ST 112. PRIOR TO VOMITTING RHYTHM HAS BEEN ST 100-110, RARE TO OCC PAC NOTED. U/O MINIMAL AT BEGINNING OF SHIFT, 10-15 ML/HR BUT HAS IMPROVED TO 25-35 ML/HR AT THIS TIME. BP STABLE ON LEVO AND VASOPRESSIN. AFEBRILE. PT RECEIVED 40 MEQ KCL OVERNIGHT FOR A K+3.3 AT 1999.
[2023-02-14] MEDS: Acetaminophen 1,000 MG/100 ML PIGGYBACK 400 MG IV ×3 (06:26→17:02)
[2023-02-14 06:55] LABS: Venous Blood Gas Refer to POC result
--- NOTE | 2023-02-14 07:42 | P.PNGS_ITS ---
Subjective Subjective Date of Service: 02/14/23 Interval history: Reports being thirsty this morning; he was reminded of his nausea and vomiting yesterday after drinking liquids. Gastric dilatation noted on CT drainage procedure yesterday. CT drainage produced dark bile. Cultures pending. Physical Exam 2 Vital Signs: Vital Signs: Last Vital Signs Temp 97.1 F 02/14/23 04:00 Pulse 109 H 02/14/23 07:00 Resp 24 H 02/14/23 07:00 BP 110/63 02/14/23 07:00 Pulse Ox 92 02/14/23 07:00 O2 Del Method Oxymask 02/14/23 07:00 O2 Flow Rate 4 02/14/23 07:00 FiO2 35 02/14/23 06:34 BMI result Body Mass Index 46.6 Const: General: lethargic Nutritional Appearance: obese O rientation/consciousness: lethargic HEENT: Other: NG tube in place Resp: Other: breathing with face mask, O2 sats 91% GI: Other: obese, distended, tender right upper quadrant, drain in place Skin: Other: Warm and dry, Extrem: Other: peripheral edema Objective Data Active Medications Albuterol/Ipratropium (Albuterol/Iprat 2.5/0.5mg 3 Ml Ampul.Neb) 3 ml INHALE RQ4H WHILE AWAKE [facility] Last Admin: 02/13/23 19:10 Dose: 3 ml Documented By: JED Albuterol/Ipratropium (Albuterol/Iprat 2.5/0.5mg 3 Ml Ampul.Neb) 3 ml INHALE RQ4H WHILE AWAKE PRN PRN Reason: Shortness of Breath Last Admin: 02/13/23 04:26 Dose: 3 ml Documented By: GENEVA Fentanyl (Fentanyl Citrate/Pf 100 Mcg/2 Ml Vial) 25 mcg IVPUSH Q2H PRN; Protocol PRN Reason: Pain, Moderate(Pain Scale 4-6) Last Admin: 02/13/23 23:17 Dose: 25 mcg Documented By: ANA MARIA Comments: Piperacillin Sod/Tazobactam (Sod 3.375 gm/ Sodium Chloride) 50 mls @ 100 mls/hr IV Q6H [facility] Last Infusion: 02/14/23 04:02 Dose: Infused Documented By: ANA MARIA Daptomycin 850 mg/ Sodium (Chloride) 67 mls @ 134 mls/hr IV Q24H [facility] Last Infusion: 02/13/23 18:57 Dose: Infused Documented By: KINZA Acetaminophen (Ofirmev) 1,000 mg in 100 mls @ 400 mls/hr IV Q6H [facility] Last Infusion: 02/14/23 06:43 Dose: Infused Documented By: ANA MARIA Norepinephrine Bitartrate (Levophed) 8 mg in 250 mls @ 0 mls/hr IV .Q0M [facility]; Protocol Last Admin: 02/14/23 06:38 Dose: 0.38 mcg/kg/min, 96.19 mls/hr Documented By: ANA MARIA Vasopressin (Vasostrict) 20 unit in 100 mls @ 12 mls/hr IV .Q8H20M [facility] Last Admin: 02/14/23 01:27 Dose: 0.04 unit/min, 12 mls/hr Documented By: ANA MARIA Albumin Human (Kedbumin 25 %) 100 mls @ 100 mls/hr IV Q6H [facility] Stop: 02/15/23 02:59 Levothyroxine Sodium (Levothyroxine Sodium 75 Mcg Tablet) 75 mcg PO DAILY@0600 [facility] Last Admin: 02/14/23 07:12 Dose: Not Given Documented By: MALISSA Non-Admin Reason: Patient Refused Nystatin (Nystatin Powder 15 Gm Bottle) 1 appl TOPICAL TID [facility]; Protocol Last Admin: 02/13/23 22:09 Dose: 1 appl Documented By: ANA MARIA Ondansetron HCl (Ondansetron Hcl 4 Mg/2 Ml Vial) 4 mg IVPUSH QID PRN PRN Reason: Nausea Last Admin: 02/14/23 05:30 Dose: 4 mg Documented By: ANA MARIA Oxycodone HCl (Oxycodone Hcl Immed Release 5 Mg Tablet) 10 mg PO Q6H PRN PRN Reason: Pain, Moderate(Pain Scale 4-6) Sodium Chloride (0.9 % Sodium Chloride Flush 3 Ml Syringe) 3 ml IVFLUSH QSHIFT [facility] Last Admin: 02/13/23 23:11 Dose: 3 ml Documented By: ANA MARIA Labs 02/14/23 04:49 02/14/23 04:49 Labs: Laboratory Results - last 24 hr 10/31/23 11/01/23 11/01/23 Unknown 09:05 09:09 MCV MCH MCHC RDW Plt Count MPV Immature Gran % (Auto) Neut % (Auto) Lymph % (Auto) [place] % (Auto) Eos % (Auto) Baso % (Auto) Lymph # (Auto) [place] # (Auto) Eos # (Auto) Baso # (Auto) Abs Immat Gran (auto) Absolute Neuts (auto) Absolute Nucleated RBC Nucleated RBC % (auto) Smear Tech's Comments PT INR APTT O2 Saturation 94.0 ABG pH at Pt Temp 7.23 L ABG pCO2 at Pt Temp 35 ABG pO2 at Pt Temp 70 L ABG HCO3 15 L ABG Base Excess (Actual) -11.2 VBG pH VBG pCO2 VBG pO2 VBG HCO3 VBG O2 Saturation VBG Base Excess Anion Gap Estim Creat Clear Calc Estimated GFR Random Glucose Lactic Acid F/U @ 2Hr 4.8 H* Lactic Acid F/U @ 4Hr Calcium Phosphorus Magnesium Total Bilirubin AST ALT Alkaline Phosphatase Total Protein Albumin Stl C. cayetanensis PCR Not Detected Stool Rotavirus A PCR Not Detected Stl Adenov F 40/41 PCR Not Detected Stool Astrovirus (PCR) Not Detected Stool Campylobacter PCR Not Detected Stool Cryptosporidium PCR Not Detected Stl Sh Tox Pr E STEC PCR Not Detected Stool E coli O157 PCR Not applicable Stl Enterotoxigenic E PCR Not Detected Stool EPEC (PCR) Not Detected Stool EAEC (PCR) Not Detected Stl E. histolytica PCR Not Detected Stool Giardia Lamblia PCR Not Detected Stl P. shigelloides PCR Not Detected Stool Salmonella PCR Not Detected Stool Sapovirus (PCR) Not Detected Stl Shigella/EIEC PCR Not Detected St Y.enterocolitica PCR Not Detected Stool Vibrio (PCR) Not Detected Stl Vibrio cholerae PCR Not Detected Stl Norovirus GI/GII PCR Not Detected 02/13/23 02/13/23 02/13/23 10:33 11:45 16:25 MCV MCH MCHC RDW Plt Count MPV Immature Gran % (Auto) Neut % (Auto) Lymph % (Auto) [place] % (Auto) Eos % (Auto) Baso % (Auto) Lymph # (Auto) [place] # (Auto) Eos # (Auto) Baso # (Auto) Abs Immat Gran (auto) Absolute Neuts (auto) Absolute Nucleated RBC Nucleated RBC % (auto) Smear Tech's Comments PT 19.8 H INR 1.6 H APTT 39.3 H O2 Saturation ABG pH at Pt Temp ABG pCO2 at Pt Temp ABG pO2 at Pt Temp ABG HCO3 ABG Base Excess (Actual) VBG pH 7.15 L* VBG pCO2 53 VBG pO2 50 VBG HCO3 19 L VBG O2 Saturation 78.0 VBG Base Excess -10.2 Anion Gap Estim Creat Clear Calc Estimated GFR Random Glucose Lactic Acid F/U @ 2Hr Lactic Acid F/U @ 4Hr 5.0 H* Calcium Phosphorus Magnesium Total Bilirubin AST ALT Alkaline Phosphatase Total Protein Albumin Stl C. cayetanensis PCR Stool Rotavirus A PCR Stl Adenov F 40 PCR Stool Astrovirus (PCR) Stool Campylobacter PCR Stool Cryptosporidium PCR Stl Sh Tox Pr E STEC PCR Stool E coli O157 PCR Stl Enterotoxigenic E PCR Stool EPEC (PCR) Stool EAEC (PCR) Stl E. histolytica PCR Stool Giardia Lamblia PCR Stl P. shigelloides PCR Stool Salmonella PCR Stool Sapovirus (PCR) Stl Shigella/EIEC PCR St Y.enterocolitica PCR Stool Vibrio (PCR) Stl Vibrio cholerae PCR Stl Norovirus GI/GII PCR 02/13/23 02/13/23 02/14/23 20:08 20:12 04:49 MCV 98.1 H MCH 30.1 MCHC 30.7 L RDW 17.4 H Plt Count 232 MPV 9.8 Immature Gran % (Auto) 0.7 H Neut % (Auto) 90.8 H Lymph % (Auto) 5.5 L [place] % (Auto) 1.8 L Eos % (Auto) 0.7 Baso % (Auto) 0.5 Lymph # (Auto) 0.9 L [place] # (Auto) 0.3 Eos # (Auto) 0.1 Baso # (Auto) 0.1 Abs Immat Gran (auto) 0.11 H Absolute Neuts (auto) 15.1 H Absolute Nucleated RBC 0.070 H Nucleated RBC % (auto) 0.4 H Smear Tech's Comments VERIFIED PT INR APTT O2 Saturation ABG pH at Pt Temp ABG pCO2 at Pt Temp ABG pO2 at Pt Temp ABG HCO3 ABG Base Excess (Actual) VBG pH 7.22 L VBG pCO2 53 VBG pO2 59 VBG HCO3 22 VBG O2 Saturation 88.0 VBG Base Excess -5.4 Anion Gap 20 21 H Estim Creat Clear Calc 34.3 34.2 Estimated GFR 25 25 Random Glucose 165 H 145 H Lactic Acid F/U @ 2Hr Lactic Acid F/U @ 4Hr Calcium 8.4 8.5 Phosphorus 6.4 H 5.7 H Magnesium 1.6 1.6 Total Bilirubin 0.4 AST 30 ALT 22 Alkaline Phosphatase 66 Total Protein 5.5 L Albumin 2.6 L Stl C. cayetanensis PCR Stool Rotavirus A PCR Stl Adenov F 40/41 PCR Stool Astrovirus (PCR) Stool Campylobacter PCR Stool Cryptosporidium PCR Stl Sh Tox Pr E STEC PCR Stool E coli O157 PCR Stl Enterotoxigenic E PCR Stool EPEC (PCR) Stool EAEC (PCR) Stl E. histolytica PCR Stool Giardia Lamblia PCR Stl P. shigelloides PCR Stool Salmonella PCR Stool Sapovirus (PCR) Stl Shigella/EIEC PCR St Y.enterocolitica PCR Stool Vibrio (PCR) Stl Vibrio cholerae PCR Stl Norovirus GI/GII PCR 02/14/23 04:57 MCV MCH MCHC RDW Plt Count MPV Immature Gran % (Auto) Neut % (Auto) Lymph % (Auto) [place] % (Auto) Eos % (Auto) Baso % (Auto) Lymph # (Auto) [place] # (Auto) Eos # (Auto) Baso # (Auto) Abs Immat Gran (auto) Absolute Neuts (auto) Absolute Nucleated RBC Nucleated RBC % (auto) Smear Tech's Comments PT INR APTT O2 Saturation ABG pH at Pt Temp ABG pCO2 at Pt Temp ABG pO2 at Pt Temp ABG HCO3 ABG Base Excess (Actual) VBG pH 7.32 VBG pCO2 43 VBG pO2 46 VBG HCO3 22 VBG O2 Saturation 80.0 VBG Base Excess -3.3 Anion Gap Estim Creat Clear Calc Estimated GFR Random Glucose Lactic Acid F/U @ 2Hr Lactic Acid F/U @ 4Hr Calcium Phosphorus Magnesium Total Bilirubin AST ALT Alkaline Phosphatase Total Protein Albumin Stl C. cayetanensis PCR Stool Rotavirus A PCR Stl Adenov F 40/ PCR Stool Astrovirus (PCR) Stool Campylobacter PCR Stool Cryptosporidium PCR Stl Sh Tox Pr E STEC PCR Stool E coli O157 PCR Stl Enterotoxigenic E PCR Stool EPEC (PCR) Stool EAEC (PCR) Stl E. histolytica PCR Stool Giardia Lamblia PCR Stl P. shigelloides PCR Stool Salmonella PCR Stool Sapovirus (PCR) Stl Shigella/EIEC PCR St Y.enterocolitica PCR Stool Vibrio (PCR) Stl Vibrio cholerae PCR Stl Norovirus GI/GII PCR Microbiology Microbiology Results: Microbiology 02/11/23 16:24 Blood Culture - Preliminary Blood - Venous No growth after 48 hours. 02/11/23 16:15 Blood Culture - Final Blood - Venous Coag negative Staphylococcus 02/12/23 06:07 Blood Culture - Preliminary Blood - Venous No growth after 24 hours. 02/12/23 06:07 Blood Culture - Preliminary Blood - Venous No growth after 24 hours. Procedures Date of Service Date of Service: 02/14/23 Progress Note: A&P Assessment and plan (1) Hypotension: Status: Acute Assessment and Plan: BP improved this morning, on pressors. Echo results: - Normal left ventricular size and systolic function. The visually estimated ejection fraction is between 60-65%. There is no evidence of regional wall motion abnormalities. Diastolic function is normal for age. There is moderate septal asymmetric hypertrophy. - Normal right ventricular cavity size and systolic function. (2) Sepsis: Status: Acute Assessment and Plan: Acute cholecystitis, acalculous. Status post CT-guided cholecystostomy placement yesterday. WBC decreased to 16 K from 20 K. Patient continues on Zosyn, cultures pending of bile fluid. Patient on pressors for BP. (3) Acute cholecystitis: Status: Acute Assessment and Plan: Cholecystostomy tube performed yesterday. Will keep tube in early several weeks. (4) Venous thromboembolism: Status: Acute Assessment and Plan: Anticoagulation held for cholecystostomy tube placement. Time Spent With Patient Time: Total time managing care of this patient today ____ minutes. Quality Stroke Does the patient have a stroke diagnosis?: No VTE Prior VTE?: Yes VTE Risk Level:: Surgical - high VTE Device Contraindication: N/A - Device Ordered VTE Drug Contraindication: N/A - Med Ordered
[2023-02-14] MEDS: Albuterol/Iprat 2.5/0.5MG 3 ML AMPUL.NEB INHALE ×3 (08:06→19:49)
[2023-02-14] MEDS: Albumin Human 25 % 100 ML IV ×3 (08:53→20:03)
[2023-02-14] MEDS: 0.9 % Sodium Chloride Flush 3 ML SYRINGE IVFLUSH ×3 (08:54→23:32)
[2023-02-14] MEDS: Norepinephrine Bitartrate/D5W 8 MG/250 ML PLAST..BAG 101.25 MG IV (08:57)
[2023-02-14] MEDS: Nystatin Powder 15 GM BOTTLE 1 APPL TOPICAL ×3 (09:06→20:07)
--- NOTE | 2023-02-14 10:38 | MHC.CM.PN ---
Pt continues pressor support in ICU following a vincenzo tube placement. No plans for wean or d/c. CM to follow for changes to original d/c plan of home w/reumption of [facility] services. May benefit from VNA. Will discuss w/pt once he clinically improves.
[2023-02-14] MEDS: Norepinephrine Bitartrate/D5W 8 MG/250 ML PLAST..BAG 106.31 MG IV (11:17)
[2023-02-14 12:06] LABS: VBG Base Excess -4.5 mmol/L; VBG HCO3 23 mmol/L (22-26); VBG pCO2 57 mmHg; VBG pH 7.22 (7.32-7.43); VBG pO2 69 mmHg
[2023-02-14 12:07] LABS: Venous Blood Gas Refer to POC result
[2023-02-14] MEDS: Digoxin 0.5 MG/2 ML AMPUL 0.25 MG IVPUSH (12:14)
--- NOTE | 2023-02-14 12:48 | P.PNCC_ITS ---
Subjective Subjective Date of Service: 02/14/23 Interval History: 72-year-old gentleman underlying morbid obesity, DVT on Eliquis, obstructive sleep, rheumatoid arthritis, hypothyroidism admitted 02/11/2023 for acute cholecystitis. Patient covered empirically with Zosyn and has been evaluated by General surgery with plan for possible cholecystostomy versus cholecystectomy. Overnight patient with developed septic shock requiring initiation of pressor support and transfer to intensive care unit. Status post cholecystostomy tube on 02/13/2023. Overnight with vomiting secondary to ileus, status post placement of NG tube with drainage of approximately 1200 cc. In/out of AFib today. Critical Care Time (minutes): 45 Physical Exam 2 Vital Signs: Vital Signs: Last Vital Signs Temp 97.5 F 02/14/23 12:00 Pulse 96 02/14/23 12:41 Resp 20 02/14/23 12:00 BP 156/79 H 02/14/23 12:41 Pulse Ox 85 L 02/14/23 12:00 O2 Del Method BiPAP 02/14/23 12:00 O2 Flow Rate 4 02/14/23 11:00 FiO2 40 02/14/23 12:00 BMI result Body Mass Index 46.6 Const: General: no acute distress, alert and awake Nutritional Appearance: obese and Edematous Eyes: Sclerae: sclerae normal EOM: EOMs intact bilaterally Neck: Neck: Yes no lymphadenopathy, Yes trachea midline and Yes supple Resp: Effort & Inspection: normal respiratory effort and no respiratory distress Auscultation: crackles (Diffuse bilateral) Cardio: Rate: tachycardic Rhythm: abnormal rhythm irregularly irregular Heart sounds: no gallops, no murmurs and no rubs GI: Inspection: Yes other (Cholecystostomy) Palpation (GI): Soft to palpation and Other GI palpation findings present ( Nontender) Auscultation: normal bowel sounds Extrem: General: No clubbing, No cyanosis and Yes edema (2+ bilateral) Objective Data Labs 02/14/23 04:49 02/14/23 04:49 Labs: Laboratory Results - last 24 hr 02/13/23 02/13/23 02/13/23 16:25 20:08 20:12 WBC RBC Hgb Hct MCV MCH MCHC RDW Plt Count MPV Immature Gran % (Auto) Neut % (Auto) Lymph % (Auto) [place] % (Auto) Eos % (Auto) Baso % (Auto) Lymph # (Auto) [place] # (Auto) Eos # (Auto) Baso # (Auto) Abs Immat Gran (auto) Absolute Neuts (auto) Absolute Nucleated RBC Nucleated RBC % (auto) Smear Tech's Comments VBG pH 7.15 L* 7.22 L VBG pCO2 53 53 VBG pO2 50 59 VBG HCO3 19 L 22 VBG O2 Saturation 78.0 88.0 VBG Base Excess -10.2 -5.4 Sodium 145 Potassium 3.3 Chloride 107 Carbon Dioxide 21 L Anion Gap 20 BUN 32 H Creatinine 2.50 H Estim Creat Clear Calc 34.3 Estimated GFR 25 Random Glucose 165 H Calcium 8.4 Phosphorus 6.4 H Magnesium 1.6 Total Bilirubin AST ALT Alkaline Phosphatase Total Protein Albumin 02/14/23 02/14/23 02/14/23 04:49 04:57 12:01 WBC 16.6 H RBC 4.18 L Hgb 12.6 L Hct 41.0 L MCV 98.1 H MCH 30.1 MCHC 30.7 L RDW 17.4 H Plt Count 232 MPV 9.8 Immature Gran % (Auto) 0.7 H Neut % (Auto) 90.8 H Lymph % (Auto) 5.5 L [place] % (Auto) 1.8 L Eos % (Auto) 0.7 Baso % (Auto) 0.5 Lymph # (Auto) 0.9 L [place] # (Auto) 0.3 Eos # (Auto) 0.1 Baso # (Auto) 0.1 Abs Immat Gran (auto) 0.11 H Absolute Neuts (auto) 15.1 H Absolute Nucleated RBC 0.070 H Nucleated RBC % (auto) 0.4 H Smear Tech's Comments VERIFIED VBG pH 7.32 7.22 L VBG pCO2 43 57 VBG pO2 46 69 VBG HCO3 22 23 VBG O2 Saturation 80.0 91.0 VBG Base Excess -3.3 -4.5 Sodium 144 Potassium 3.6 Chloride 106 Carbon Dioxide 21 L Anion Gap 21 H BUN 34 H Creatinine 2.51 H Estim Creat Clear Calc 34.2 Estimated GFR 25 Random Glucose 145 H Calcium 8.5 Phosphorus 5.7 H Magnesium 1.6 Total Bilirubin 0.4 AST 30 ALT 22 Alkaline Phosphatase 66 Total Protein 5.5 L Albumin 2.6 L Microbiology Microbiology Results: Microbiology 02/13/23 13:30 Gallbladder Gram Stain - Final 02/13/23 13:30 Gallbladder Routine Culture - Preliminary No growth to date. 02/12/23 06:07 Blood - Venous Blood Culture - Preliminary No growth after 48 hours. 02/12/23 06:07 Blood - Venous Blood Culture - Preliminary No growth after 48 hours. 02/11/23 16:24 Blood - Venous Blood Culture - Preliminary No growth after 48 hours. 02/11/23 16:15 Blood - Venous Blood Culture - Final Coag negative Staphylococcus Progress Note: A&P Assessment and plan (1) Rheumatoid arthritis: Status: Acute (2) Morbid obesity: Status: Acute (3) Bacteremia: Status: Acute (4) Acute cholecystitis: Status: Acute (5) Hypothyroidism: Status: Acute (6) ABEL (acute kidney injury): Status: Acute Plan Assessment: 72-year-old gentleman with underlying morbid obesity and rheumatoid a 3 status admitted with acute cholecystitis further complicated by bacteremia with septic shock and etabolic acidosis Plan: Neuro: No acute issues. Cardiac: septic shock, continue to titrate off pressor support as tolerated. Pulmonary: Acute hypoxic respiratory failure secondary to pulmonary edema from resuscitation of septic shock. Continue to titrate off supplemental oxygen as tolerated. Renal: Acute renal failure, likely secondary to ATN from septic shock. Oliguric. Continue to monitor renal indices and urine output. Endo: No acute issues. GI: Acute cholecystitis. General surgery service care appreciated. Now status post cholecystostomy. Continue broad-spectrum antibiotics. ID: Septic shock secondary to acute cholecystitis. Continue broad-spectrum antibiotic coverage. Heme/Onc: No acute issues. Psych: No acute issues. Miscellaneous: No acute issues. Prophylaxis: Pneumatic compression Diet: NPO while on BiPAP Critical care time spent: 45 minutes Quality Stroke Does the patient have a stroke diagnosis?: No VTE Prior VTE?: Yes VTE Risk Level:: Surgical - high VTE Device Contraindication: N/A - Device Ordered VTE Drug Contraindication: N/A - Med Ordered
--- NOTE | 2023-02-14 12:51 | P.CDIM_ITS ---
PROVIDER RESPONSE TEXT: To clarify, the appropriate diagnosis supported by the clinical indicators: Chronic kidney disease Stage 3 QUERY TEXT: PHYSICIAN'S DOCUMENTATION REQUEST Date of Query: 02/14/2023 07:57 AM EDT Patient Name: Rich Nance Admit Date: 02/12/2023 Dear Papa Negron, A review of the medical record indicates additional documentation may be needed. Please review below and update the documentation accordingly. Clinical Indicators: Nephrology consultation note dated 02/12 - Impression: Stage 2/3 chronic kidney disease. Baseline creatinine 1.0 Continue IV fluids Please clarify which of the following accurately represents the patient's renal stage: Chronic kidney disease Stage 2 Chronic kidney disease Stage 3 Other please specify Other (explain)Clinically unable to determine (explain)Thank you, Juana Treadwell, CCS, CDIS Use of terms such as suspected, likely, concern for, or probable (associated with a specific diagnosi s that is being evaluated, monitored, or treated as if it exists) are acceptable and can be coded in the inpatient se tting, when documented at the time of discharge. Please use your independent medical judgment in providing your response. THIS QUERY IS PART OF THE PERMANENT MEDICAL RECORD
[2023-02-14] MEDS: Bumetanide 1 MG/4 ML VIAL IVPUSH (13:38)
[2023-02-14] MEDS: Norepinephrine Bitartrate/D5W 8 MG/250 ML PLAST..BAG 73.41 MG IV (13:39)
--- NOTE | 2023-02-14 15:06 | PM.PNNEP ---
Subjective Subjective Date of Service: 02/14/23 Principal diagnosis: Acute Cholecystitis and ABEL Interval history: Seen and examined, events noted On bipap Cont on pressors UOP remains marginal 20/hr Physical Exam Vital Signs: Vital Signs: Last Vital Signs Temp 97.5 F 02/14/23 12:00 Pulse 82 02/14/23 14:12 Resp 21 H 02/14/23 14:00 BP 135/63 02/14/23 14:12 Pulse Ox 91 L 02/14/23 14:00 O2 Del Method BiPAP 02/14/23 14:00 O2 Flow Rate 4 02/14/23 13:00 FiO2 40 02/14/23 14:00 BMI result Body Mass Index 46.6 Const: General: no acute distress, alert, awake, ill appearing, lethargic ( Arousable) and tired appearing Nutritional Appearance: obese Orientation/consciousness: patient oriented x3 and lethargic ( Arousable) Limitations: other limitations (Nonambulatory) HEENT: Other: CPAP in place, facial swelling Head: Yes normocephalic and Yes atraumatic Ears: hearing grossly normal bilaterally Eyes: Sclerae: sclerae normal EOM: EOMs intact bilaterally Neck: Neck: Yes no lymphadenopathy, Yes trachea midline and Yes supple Resp: Other: breathing with assistance of CPAP Effort & Inspection: normal respiratory effort, no audible wheezes, no cough, no respiratory distress and tachypneic Auscultation: clear to auscultation bilaterally and diminished lung sounds Cardio: Rate: tachycardic Rhythm: regular rhythm Heart sounds: no gallops, no murmurs and no rubs GI: Other: obese, distended, tender right upper quadrant Inspection: Yes Abdominal panniculus present and Yes obesity Palpation (GI): Soft to palpation, Tenderness to palpation present (GI) ( right upper quadrant) in the epigastrum, in the RUQ and Gomez's sign positive; with no rebound tenderness, no guarding, not rigid and Other GI palpation findings present ( Nontender) Percussion: Yes normal to percussion Auscultation: normal bowel sounds Rectal Exam - Male: Yes deferred Neuro: General: patient oriented x3 Extrem: Other: peripheral edema General: No clubbing, No cyanosis and Yes edema ( trace bilateral) Objective Data Labs 02/14/23 04:49 02/14/23 04:49 Labs: Laboratory Results - last 24 hr 02/13/23 02/13/23 02/13/23 16:25 20:08 20:12 WBC RBC Hgb Hct MCV MCH MCHC RDW Plt Count MPV Immature Gran % (Auto) Neut % (Auto) Lymph % (Auto) [place] % (Auto) Eos % (Auto) Baso % (Auto) Lymph # (Auto) [place] # (Auto) Eos # (Auto) Baso # (Auto) Abs Immat Gran (auto) Absolute Neuts (auto) Absolute Nucleated RBC Nucleated RBC % (auto) Smear Tech's Comments VBG pH 7.15 L* 7.22 L VBG pCO2 53 53 VBG pO2 50 59 VBG HCO3 19 L 22 VBG O2 Saturation 78.0 88.0 VBG Base Excess -10.2 -5.4 Sodium 145 Potassium 3.3 Chloride 107 Carbon Dioxide 21 L Anion Gap 20 BUN 32 H Creatinine 2.50 H Estim Creat Clear Calc 34.3 Estimated GFR 25 Random Glucose 165 H Calcium 8.4 Phosphorus 6.4 H Magnesium 1.6 Total Bilirubin AST ALT Alkaline Phosphatase Total Protein Albumin 02/14/23 02/14/23 02/14/23 04:49 04:57 12:01 WBC 16.6 H RBC 4.18 L Hgb 12.6 L Hct 41.0 L MCV 98.1 H MCH 30.1 MCHC 30.7 L RDW 17.4 H Plt Count 232 MPV 9.8 Immature Gran % (Auto) 0.7 H Neut % (Auto) 90.8 H Lymph % (Auto) 5.5 L [place] % (Auto) 1.8 L Eos % (Auto) 0.7 Baso % (Auto) 0.5 Lymph # (Auto) 0.9 L [place] # (Auto) 0.3 Eos # (Auto) 0.1 Baso # (Auto) 0.1 Abs Immat Gran (auto) 0.11 H Absolute Neuts (auto) 15.1 H Absolute Nucleated RBC 0.070 H Nucleated RBC % (auto) 0.4 H Smear Tech's Comments VERIFIED VBG pH 7.32 7.22 L VBG pCO2 43 57 VBG pO2 46 69 VBG HCO3 22 23 VBG O2 Saturation 80.0 91.0 VBG Base Excess -3.3 -4.5 Sodium 144 Potassium 3.6 Chloride 106 Carbon Dioxide 21 L Anion Gap 21 H BUN 34 H Creatinine 2.51 H Estim Creat Clear Calc 34.2 Estimated GFR 25 Random Glucose 145 H Calcium 8.5 Phosphorus 5.7 H Magnesium 1.6 Total Bilirubin 0.4 AST 30 ALT 22 Alkaline Phosphatase 66 Total Protein 5.5 L Albumin 2.6 L Microbiology Microbiology Results: Microbiology 02/13/23 13:30 Gallbladder Gram Stain - Final 02/13/23 13:30 Gallbladder Routine Culture - Preliminary No growth to date. 02/12/23 06:07 Blood - Venous Blood Culture - Preliminary No growth after 48 hours. 02/12/23 06:07 Blood - Venous Blood Culture - Preliminary No growth after 48 hours. 02/11/23 16:24 Blood - Venous Blood Culture - Preliminary No growth after 48 hours. 02/11/23 16:15 Blood - Venous Blood Culture - Final Coag negative Staphylococcus Procedures Date of Service Date of Service: 02/14/23 Assessment & Plan Assessment and plan (1) Acute cholecystitis: Status: Acute (2) ABEL (acute kidney injury): Status: Acute (3) Bacteremia: Status: Acute (4) Morbid obesity: Status: Acute (5) Rheumatoid arthritis: Status: Acute Plan 72-year-old gentleman underlying morbid obesity, DVT on Eliquis, obstructive sleep, rheumatoid arthritis, hypothyroidism admitted 02/11/2023 for acute cholecystitis. Patient covered empirically with Zosyn and has been evaluated by General surgery with plan for possible cholecystostomy versus cholecystectomy. Overnight patient with developed septic shock requiring initiation of pressor support and transfer to intensive care unit. Blood cultures growing Staphylococcus. 1.Oliguric ABEL: c/w multifact ATN from SEPSIS 2. Septic Shock: on broad spec ABx, Staph bact and acute vincenzo 3. Hypervol: 3rd spacing from sepsis REC: cont with trial of lasix 80 q8 hrs and IV alb and incr pressor as needed; may need UF in next 24-48 hrs if diuretic resistant given marked hypervol D/W [employer] in detail Dr Khalil is dionte [facility] Will follow tracey with team Time Spent With Patient Time: Total time managing care of this patient today ____ minutes. Progress Note: Quality Stroke Does the patient have a stroke diagnosis?: No
[2023-02-14] MEDS: Norepinephrine Bitartrate/D5W 8 MG/250 ML PLAST..BAG 58.22 MG IV (17:01)
[2023-02-14] MEDS: DAPTOmycin 850 MG in 0.9 % Sodium Chloride 50 ML 134 MG IV (17:07)
[2023-02-14] MEDS: fentaNYL citrate/PF 100 MCG/2 ML VIAL 25 MCG IVPUSH ×2 (19:46→23:08)
[2023-02-14] MEDS: Norepinephrine Bitartrate/D5W 8 MG/250 ML PLAST..BAG 45.56 MG IV (21:39)
[2023-02-14] MEDS: Fluconazole in NaCl,Iso-Osm 400 MG/200 ML PIGGYBACK 100 MG IV (21:42)
[2023-02-15] VITALS (40 sets, daily range): BP systolic 83–152; BP diastolic 42–108; PULSE 63–110; RESP 11–24; TEMP 36.2–36.9; O2SAT 89–99; BMI 46.6
[2023-02-15 00:14] LABS: VBG Base Excess -1.1 mmol/L; VBG HCO3 27 mmol/L (22-26); VBG pCO2 63 mmHg; VBG pH 7.24 (7.32-7.43); VBG pO2 58 mmHg
[2023-02-15 00:24] LABS: Venous Blood Gas Refer to POC result
[2023-02-15] MEDS: Albumin Human 25 % 100 ML IV (01:03)
[2023-02-15] MEDS: Vasopressin 20 UNIT/100 ML INFUS..BTL 12 UNIT IV ×2 (01:07→08:20)
[2023-02-15] MEDS: Acetaminophen 1,000 MG/100 ML PIGGYBACK 400 MG IV ×2 (01:13→07:50)
[2023-02-15] MEDS: Piperacillin Sodium/Tazobactam 3.375 GM in 0.9 % Sodium Chloride 50 ML IV ×4 (02:16→21:41)
[2023-02-15 05:05] LABS: VBG Base Excess 0.5 mmol/L; VBG HCO3 27 mmol/L (22-26); VBG pCO2 56 mmHg; VBG pH 7.29 (7.32-7.43); VBG pO2 46 mmHg
[2023-02-15 05:09] LABS: Venous Blood Gas Refer to POC result
[2023-02-15 05:13] LABS: Basophils Absolute Auto 0.1 X10*3/uL (0.0-0.2); Basophils Percent Auto 0.9 % (0-2); Eosinophils Absolute Auto 0.1 X10*3/uL (0.0-0.4); Hemoglobin 9.9 g/dl (14.0-18.0); Imm Gran Abs Auto 0.09 X10*3/uL (0.00-0.03); Lymphocytes Absolute Auto 0.6 X10*3/uL (1.2-4.9); Lymphocytes Percent Auto 6.2 % (20-40); MANUAL DIFF FLAG SCAN; Mean Corpuscular HGB Conc 30.9 g/dl (31.0-36.0); Mean Corpuscular Hemoglobin 30.5 pg (27.0-33.0); Mean Corpuscular Volume 98.5 fL (80.0-98.0); Mean Platelet Volume 9.6 fL (9.4-12.4); Monocytes Absolute Auto 0.2 X10*3/uL (0.1-1.2); Monocytes Percent Auto 2.1 % (2-11); NRBC Pct Auto 0.2 /100WBC (0.0-0.2); Neutrophils Absolute Auto 8.1 x10*3/uL (2.0-8.3); Neutrophils Percent Auto 88.8 % (45-73); Platelet Count 120 X10*3/uL (160-400); Red Blood Count 3.25 X10*6/uL (4.60-5.80); Red Cell Distribution Width 17.2 % (11.0-16.0); SCAN SMEAR FLAG 1; White Blood Count 9.2 X10*3/uL (4.8-10.8)
[2023-02-15 05:32] LABS: Alanine Aminotransferase 22 U/L (0-40); Albumin Level 3.6 g/dL (3.5-5.0); Alkaline Phosphatase 50 U/L (39-117); Anion Gap 19 (12-20); Aspartate Amino Transferase 27 U/L (5-37); Bilirubin Total 0.8 mg/dL (0.0-1.0); Blood Urea Nitrogen 37 mg/dL (9-16); Calcium 8.3 mg/dL (8.4-10.2); Carbon Dioxide 26 mmol/L (22-29); Chloride 100 mmol/L (96-108); Creatinine Clr Calc Pharmacy 30.1; Estimated Glomerular Filt Rate 22; Glucose Random 125 mg/dL (60-115); Magnesium 1.7 mg/dL (1.6-2.6); Phosphorus 4.9 mg/dL (2.7-4.5); Potassium 3.2 mmol/L (3.3-5.1); Sodium 142 mmol/L (135-145); Total Protein 5.8 g/dL (6.5-8.0)
[2023-02-15 05:35] LABS: SLIDE REVIEW VERIFIED
--- NOTE | 2023-02-15 06:38 | PC.NURSE ---
no resp difficulties overnight. pt remains on bipap. chong well. o2 sats 90-94%. pt awake, oriented x2. vague. restless at start of this shift at 1900. pt was calling out. c/o pain all over. received fentanyl for pain with good effect and pt slept for a few hours. transferred to new room which is bigger and has the capacity for dialysis should pt need. bp stable on vasopressin/levo. able to wean levo to 0.02 mcg/kg/min. rhythm: sinus, rate 70's, occ pvc noted. u/o 25-75 ml/hr. ngt output 1200ml bile colored fluid. velvet drain emptied for only 20 ml but bright red blood with clots in the tubing. provider aware of bleeding.
[2023-02-15] MEDS: Albuterol/Iprat 2.5/0.5MG 3 ML AMPUL.NEB INHALE ×4 (07:26→19:49)
--- NOTE | 2023-02-15 07:41 | PM.PNGS ---
Subjective Subjective Date of Service: 02/15/23 Interval history: Patient on CPAP, eyes open, not responding to questioning. Physical Exam Vital Signs: Vital Signs: Last Vital Signs Temp 97.4 F 02/15/23 04:00 Pulse 78 02/15/23 07:27 Resp 18 02/15/23 07:27 BP 108/59 L 02/15/23 07:00 Pulse Ox 95 02/15/23 07:00 O2 Del Method BiPAP 02/15/23 07:00 O2 Flow Rate 4 02/14/23 13:00 FiO2 40 02/15/23 07:00 BMI result Body Mass Index 46.6 Const: General: lethargic Nutritional Appearance: obese Orientation/consciousness: lethargic HEENT: Other: NG tube in place Resp: Other: breathing with face mask, O2 sats 91% GI: Other: obese, distended, tender right upper quadrant, drain in place with bloody output Palpation (GI): Soft to palpation, nontender, no guarding and not rigid Percussion: Yes normal to percussion Auscultation: normal bowel sounds Skin: Other: Warm and dry Extrem: Other: peripheral edema Objective Data Active Medications Albuterol/Ipratropium (Albuterol/Iprat 2.5/0.5mg 3 Ml Ampul.Neb) 3 ml INHALE RQ4H WHILE AWAKE [facility] Last Admin: 02/15/23 07:26 Dose: 3 ml Documented By: LIAT Albuterol/Ipratropium (Albuterol/Iprat 2.5/0.5mg 3 Ml Ampul.Neb) 3 ml INHALE RQ4H WHILE AWAKE PRN PRN Reason: Shortness of Breath Last Admin: 02/13/23 04:26 Dose: 3 ml Documented By: GENEVA Fentanyl (Fentanyl Citrate/Pf 100 Mcg/2 Ml Vial) 25 mcg IVPUSH Q2H PRN; Protocol PRN Reason: Pain, Moderate(Pain Scale 4-6) Last Admin: 02/14/23 23:08 Dose: 25 mcg Documented By: ANA MARIA Piperacillin Sod/Tazobactam (Sod 3.375 gm/ Sodium Chloride) 50 mls @ 100 mls/hr IV Q6H [facility] Last Infusion: 02/15/23 02:52 Dose: Infused Documented By: ANA MARIA Daptomycin 850 mg/ Sodium (Chloride) 67 mls @ 134 mls/hr IV Q24H [facility] Last Infusion: 02/14/23 17:45 Dose: Infused Documented By: MALISSA Acetaminophen (Ofirmev) 1,000 mg in 100 mls @ 400 mls/hr IV Q6H [facility] Last Infusion: 02/15/23 02:10 Dose: Infused Documented By: ANA MARIA Norepinephrine Bitartrate (Levophed) 8 mg in 250 mls @ 0 mls/hr IV .Q0M [facility]; Protocol Last Titration: 02/15/23 06:29 Dose: 0.02 mcg/kg/min, 5.06 mls/hr Documented By: ANA MARIA Vasopressin (Vasostrict) 20 unit in 100 mls @ 12 mls/hr IV .Q8H20M [facility] Last Admin: 02/15/23 01:07 Dose: 0.04 unit/min, 12 mls/hr Documented By: ANA MARIA Fluconazole (Diflucan) 200 mg in 100 mls @ 100 mls/hr IV Q24H [facility] Stop: 02/19/23 20:59 Levothyroxine Sodium (Levothyroxine Sodium 75 Mcg Tablet) 75 mcg PO DAILY@0600 [facility] Last Admin: 02/15/23 06:59 Dose: Not Given Documented By: ANA MARIA Non-Admin Reason: NPO Nystatin (Nystatin Powder 15 Gm Bottle) 1 appl TOPICAL TID [facility]; Protocol Last Admin: 02/14/23 20:07 Dose: 1 appl Documented By: ANA MARIA Ondansetron HCl (Ondansetron Hcl 4 Mg/2 Ml Vial) 4 mg IVPUSH QID PRN PRN Reason: Nausea Last Admin: 02/14/23 05:30 Dose: 4 mg Documented By: ANA MARIA Oxycodone HCl (Oxycodone Hcl Immed Release 5 Mg Tablet) 10 mg PO Q6H PRN PRN Reason: Pain, Moderate(Pain Scale 4-6) Sodium Chloride (0.9 % Sodium Chloride Flush 3 Ml Syringe) 3 ml IVFLUSH QSHIFT [facility] Last Admin: 02/14/23 23:32 Dose: 3 ml Documented By: ANA MARIA Labs 02/15/23 04:57 02/15/23 04:57 Labs: Laboratory Results - last 24 hr 02/14/23 02/15/23 02/15/23 12:01 00:09 04:57 MCV 98.5 H MCH 30.5 MCHC 30.9 L RDW 17.2 H Plt Count 120 L D MPV 9.6 Immature Gran % (Auto) 1.0 H Neut % (Auto) 88.8 H Lymph % (Auto) 6.2 L [place] % (Auto) 2.1 Eos % (Auto) 1.0 Baso % (Auto) 0.9 Lymph # (Auto) 0.6 L [place] # (Auto) 0.2 Eos # (Auto) 0.1 Baso # (Auto) 0.1 Abs Immat Gran (auto) 0.09 H Absolute Neuts (auto) 8.1 Absolute Nucleated RBC 0.020 H Nucleated RBC % (auto) 0.2 Smear Tech's Comments VERIFIED VBG pH 7.22 L 7.24 L VBG pCO2 57 63 VBG pO2 69 58 VBG HCO3 23 27 H VBG O2 Saturation 91.0 86.0 VBG Base Excess -4.5 -1.1 Anion Gap 19 Estim Creat Clear Calc 30.1 Estimated GFR 22 Random Glucose 125 H Calcium 8.3 L Phosphorus 4.9 H Magnesium 1.7 Total Bilirubin 0.8 AST 27 ALT 22 Alkaline Phosphatase 50 Total Protein 5.8 L Albumin 3.6 02/15/23 05:00 MCV MCH MCHC RDW Plt Count MPV Immature Gran % (Auto) Neut % (Auto) Lymph % (Auto) [place] % (Auto) Eos % (Auto) Baso % (Auto) Lymph # (Auto) [place] # (Auto) Eos # (Auto) Baso # (Auto) Abs Immat Gran (auto) Absolute Neuts (auto) Absolute Nucleated RBC Nucleated RBC % (auto) Smear Tech's Comments VBG pH 7.29 L VBG pCO2 56 VBG pO2 46 VBG HCO3 27 H VBG O2 Saturation 80.0 VBG Base Excess 0.5 Anion Gap Estim Creat Clear Calc Estimated GFR Random Glucose Calcium Phosphorus Magnesium Total Bilirubin AST ALT Alkaline Phosphatase Total Protein Albumin Microbiology Microbiology Results: Microbiology 02/13/23 13:30 Gram Stain - Final Gallbladder Routine Culture - Preliminary No growth to date. 02/12/23 06:07 Blood Culture - Preliminary Blood - Venous No growth after 48 hours. 02/12/23 06:07 Blood Culture - Preliminary Blood - Venous No growth after 48 hours. Procedures Date of Service Date of Service: 02/15/23 Progress Note: A&P Assessment and plan (1) Hypotension: Status: Acute Assessment and Plan: BP 108/59, on pressors ( vasopressin, levo ), intermittent AFib, currently NSR (78). Echo results: - Normal left ventricular size and systolic function. The visually estimated ejection fraction is between 60-65%. There is no evidence of regional wall motion abnormalities. Diastolic function is normal for age. There is moderate septal asymmetric hypertrophy. - Normal right ventricular cavity size and systolic function. (2) Sepsis: Status: Acute Assessment and Plan: Acute cholecystitis, acalculous. Status post CT-guided cholecystostomy placement 02/13/2023. WBC now normalized. patient on Zosyn and fluconazole. Culture results from bile pending. Gm stain: 3+ Gram-positive rods; fungal cultures pending. (3) Acute cholecystitis: Status: Acute Assessment and Plan: Cholecystostomy tube performed 02/13/2023. Gallbladder adequately drained and sepsis improving. Will keep tube in early several weeks. (4) Venous thromboembolism: Status: Acute Assessment and Plan: Anticoagulation off. Management per ICU team. Time Spent With Patient Time: Total time managing care of this patient today ____ minutes. Quality Stroke Does the patient have a stroke diagnosis?: No VTE Prior VTE?: Yes VTE Risk Level:: Surgical - high VTE Device Contraindication: N/A - Device Ordered VTE Drug Contraindication: N/A - Med Ordered
[2023-02-15] MEDS: 0.9 % Sodium Chloride Flush 3 ML SYRINGE IVFLUSH ×3 (07:45→21:41)
[2023-02-15] MEDS: Nystatin Powder 15 GM BOTTLE 1 APPL TOPICAL ×3 (08:17→19:40)
[2023-02-15] MEDS: fentaNYL citrate/PF 100 MCG/2 ML VIAL 25 MCG IVPUSH (11:30)
--- NOTE | 2023-02-15 12:15 | PM.CCPN ---
Subjective Subjective Date of Service: 02/15/23 Interval History: 72-year-old gentleman underlying morbid obesity, DVT on Eliquis, obstructive sleep, rheumatoid arthritis, hypothyroidism admitted 02/11/2023 for acute cholecystitis. Patient covered empirically with Zosyn and has been evaluated by General surgery with plan for possible cholecystostomy versus cholecystectomy. Overnight patient with developed septic shock requiring initiation of pressor support and transfer to intensive care unit. Status post cholecystostomy tube on 02/13/2023. Overnight with drop in hemoglobin and worsening ileus. Pressor requirements are significantly improving. Critical Care Time (minutes): 45 Physical Exam Vital Signs: Vital Signs: Last Vital Signs Temp 98.2 F 02/15/23 08:00 Pulse 88 02/15/23 12:04 Resp 21 H 02/15/23 12:04 BP 108/48 L 02/15/23 11:00 Pulse Ox 90 L 02/15/23 11:00 O2 Del Method Oxymask 02/15/23 11:00 O2 Flow Rate 5 02/15/23 11:00 FiO2 40 02/15/23 08:00 BMI result Body Mass Index 46.6 Const: General: no acute distress, alert and awake Nutritional Appearance: obese and Edematous Eyes: Sclerae: sclerae normal EOM: EOMs intact bilaterally Neck: Neck: Yes no lymphadenopathy, Yes trachea midline and Yes supple Resp: Effort & Inspection: normal respiratory effort and no respiratory distress Auscultation: crackles ( Bilateral) Cardio: Rate: regular rate Rhythm: regular rhythm Heart sounds: no gallops, no murmurs and no rubs GI: Inspection: Yes other ( clot in cholecystostomy drain) Palpation (GI): Soft to palpation and Other GI palpation findings present ( Nontender) Extrem: General: No clubbing, No cyanosis and Yes edema ( 2+ bilateral) Objective Data Labs 02/15/23 04:57 02/15/23 04:57 Labs: Laboratory Results - last 24 hr 02/15/23 02/15/23 02/15/23 00:09 04:57 05:00 WBC 9.2 RBC 3.25 L D Hgb 9.9 L D Hct 32.0 L D MCV 98.5 H MCH 30.5 MCHC 30.9 L RDW 17.2 H Plt Count 120 L D MPV 9.6 Immature Gran % (Auto) 1.0 H Neut % (Auto) 88.8 H Lymph % (Auto) 6.2 L [place] % (Auto) 2.1 Eos % (Auto) 1.0 Baso % (Auto) 0.9 Lymph # (Auto) 0.6 L [place] # (Auto) 0.2 Eos # (Auto) 0.1 Baso # (Auto) 0.1 Abs Immat Gran (auto) 0.09 H Absolute Neuts (auto) 8.1 Absolute Nucleated RBC 0.020 H Nucleated RBC % (auto) 0.2 Smear Tech's Comments VERIFIED VBG pH 7.24 L 7.29 L VBG pCO2 63 56 VBG pO2 58 46 VBG HCO3 27 H 27 H VBG O2 Saturation 86.0 80.0 VBG Base Excess -1.1 0.5 Sodium 142 Potassium 3.2 L Chloride 100 Carbon Dioxide 26 Anion Gap 19 BUN 37 H Creatinine 2.85 H Estim Creat Clear Calc 30.1 Estimated GFR 22 Random Glucose 125 H Calcium 8.3 L Phosphorus 4.9 H Magnesium 1.7 Total Bilirubin 0.8 AST 27 ALT 22 Alkaline Phosphatase 50 Total Protein 5.8 L Albumin 3.6 Microbiology Microbiology Results: Microbiology 02/13/23 13:30 Gallbladder Gram Stain - Final 02/13/23 13:30 Gallbladder Routine Culture - Final No growth after 2 days 02/12/23 06:07 Blood - Venous Blood Culture - Preliminary No growth after 48 hours. 02/12/23 06:07 Blood - Venous Blood Culture - Preliminary No growth after 48 hours. 02/11/23 16:24 Blood - Venous Blood Culture - Preliminary No growth after 48 hours. 02/11/23 16:15 Blood - Venous Blood Culture - Final Coag negative Staphylococcus Progress Note: A&P Assessment and plan (1) Acute cholecystitis: Status: Acute (2) Morbid obesity: Status: Acute (3) Rheumatoid arthritis: Status: Acute (4) Bacteremia: Status: Acute (5) Hypothyroidism: Status: Acute Plan Assessment: 72-year-old gentleman with underlying morbid obesity and rheumatoid a 3 status admitted with acute cholecystitis further complicated by bacteremia with septic shock and etabolic acidosis Plan: Neuro: No acute issues. Cardiac: septic shock, continue to titrate off pressor support as tolerated. Pulmonary: Acute hypoxic respiratory failure secondary to pulmonary edema from resuscitation of septic shock. Continue to titrate off supplemental oxygen as tolerated. Renal: Acute renal failure, likely secondary to ATN from septic shock. Oliguric. Continue to monitor renal indices and urine output. Endo: No acute issues. GI: Acute cholecystitis. General surgery service care appreciated. Now status post cholecystostomy. Overnight cholecystostomy appears to be clotted, also with drop in hemoglobin, will obtain CT abdomen /pelvis. ID: Septic shock secondary to acute cholecystitis , improving. Continue broad-spectrum antibiotic coverage. Heme/Onc: No acute issues. Psych: No acute issues. Miscellaneous: No acute issues. Prophylaxis: Pneumatic compression Diet: NPO while on BiPAP Critical care time spent: 45 minutes Quality Stroke Does the patient have a stroke diagnosis?: No VTE Prior VTE?: Yes VTE Risk Level:: Surgical - high VTE Device Contraindication: N/A - Device Ordered VTE Drug Contraindication: N/A - Med Ordered
[2023-02-15 13:34] LABS: OBS Int Ctl Valid YES; OBS1 POSITIVE (NEGATIVE)
--- NOTE | 2023-02-15 14:05 | PM.PNNEP ---
Subjective Subjective Date of Service: 02/15/23 Principal diagnosis: Acute Cholecystitis and ABEL Interval history: Profoundly overloaded, congestion potentially limiting hemodynamics diuretics on hold Physical Exam Vital Signs: Vital Signs: Last Vital Signs Temp 98.5 F 02/15/23 12:00 Pulse 101 H 02/15/23 13:00 Resp 23 H 02/15/23 13:00 BP 88/42 L 02/15/23 13:00 Pulse Ox 97 02/15/23 13:00 O2 Del Method BiPAP 02/15/23 13:00 O2 Flow Rate 5 02/15/23 11:00 FiO2 40 02/15/23 13:00 BMI result Body Mass Index 46.6 Const: General: ill appearing Resp: Auscultation: crackles ( Bilateral) Cardio: Rate: tachycardic GI: Palpation (GI): nontender Extrem: General: Yes edema ( 2+ bilateral) Objective Data Labs 02/15/23 04:57 02/15/23 04:57 Labs: Laboratory Results - last 24 hr 02/15/23 02/15/23 02/15/23 00:09 04:57 05:00 WBC 9.2 RBC 3.25 L D Hgb 9.9 L D Hct 32.0 L D MCV 98.5 H MCH 30.5 MCHC 30.9 L RDW 17.2 H Plt Count 120 L D MPV 9.6 Immature Gran % (Auto) 1.0 H Neut % (Auto) 88.8 H Lymph % (Auto) 6.2 L [place] % (Auto) 2.1 Eos % (Auto) 1.0 Baso % (Auto) 0.9 Lymph # (Auto) 0.6 L [place] # (Auto) 0.2 Eos # (Auto) 0.1 Baso # (Auto) 0.1 Abs Immat Gran (auto) 0.09 H Absolute Neuts (auto) 8.1 Absolute Nucleated RBC 0.020 H Nucleated RBC % (auto) 0.2 Smear Tech's Comments VERIFIED VBG pH 7.24 L 7.29 L VBG pCO2 63 56 VBG pO2 58 46 VBG HCO3 27 H 27 H VBG O2 Saturation 86.0 80.0 VBG Base Excess -1.1 0.5 Sodium 142 Potassium 3.2 L Chloride 100 Carbon Dioxide 26 Anion Gap 19 BUN 37 H Creatinine 2.85 H Estim Creat Clear Calc 30.1 Estimated GFR 22 Random Glucose 125 H Calcium 8.3 L Phosphorus 4.9 H Magnesium 1.7 Total Bilirubin 0.8 AST 27 ALT 22 Alkaline Phosphatase 50 Total Protein 5.8 L Albumin 3.6 Stool Occult Blood 02/15/23 12:35 WBC RBC Hgb Hct MCV MCH MCHC RDW Plt Count MPV Immature Gran % (Auto) Neut % (Auto) Lymph % (Auto) [place] % (Auto) Eos % (Auto) Baso % (Auto) Lymph # (Auto) [place] # (Auto) Eos # (Auto) Baso # (Auto) Abs Immat Gran (auto) Absolute Neuts (auto) Absolute Nucleated RBC Nucleated RBC % (auto) Smear Tech's Comments VBG pH VBG pCO2 VBG pO2 VBG HCO3 VBG O2 Saturation VBG Base Excess Sodium Potassium Chloride Carbon Dioxide Anion Gap BUN Creatinine Estim Creat Clear Calc Estimated GFR Random Glucose Calcium Phosphorus Magnesium Total Bilirubin AST ALT Alkaline Phosphatase Total Protein Albumin Stool Occult Blood POSITIVE Microbiology Microbiology Results: Microbiology 02/13/23 13:30 Gallbladder Gram Stain - Final 02/13/23 13:30 Gallbladder Routine Culture - Final No growth after 2 days 02/12/23 06:07 Blood - Venous Blood Culture - Preliminary No growth after 48 hours. 02/12/23 06:07 Blood - Venous Blood Culture - Preliminary No growth after 48 hours. 02/11/23 16:24 Blood - Venous Blood Culture - Preliminary No growth after 48 hours. 02/11/23 16:15 Blood - Venous Blood Culture - Final Coag negative Staphylococcus Procedures Date of Service Date of Service: 02/15/23 Assessment & Plan Assessment and plan (1) Acute cholecystitis: Status: Acute (2) ABEL (acute kidney injury): Status: Acute (3) Bacteremia: Status: Acute (4) Morbid obesity: Status: Acute (5) Rheumatoid arthritis: Status: Acute Plan 72-year-old gentleman underlying morbid obesity, DVT on Eliquis, obstructive sleep, rheumatoid arthritis, hypothyroidism admitted 02/11/2023 for acute cholecystitis. Course c/b limited surgical options and Septic shock with volume overload. 1. ABEL, now non-oliguric. 2. Volume overload precipitated by ATN REC: - urge BID to TID lasix at dose 60-80mg to maintain -1L/day - no MICROBIOLOGY TEACHER indications Time Spent With Patient Time: Total time managing care of this patient today ____ minutes. Progress Note: Quality Stroke Does the patient have a stroke diagnosis?: No
[2023-02-15] MEDS: DAPTOmycin 850 MG in 0.9 % Sodium Chloride 50 ML 134 MG IV (17:37)
[2023-02-15] MEDS: Fluconazole in NaCl,Iso-Osm 200 MG/100 ML PIGGYBACK 100 MG IV (19:39)
[2023-02-15] MEDS: Vasopressin 20 UNIT/100 ML INFUS..BTL 6 UNIT IV (19:39)
--- NOTE | 2023-02-15 22:14 | HO.SKINPHOTO ---
Location: Bilateral Buttocks Category: Pressure Stage: II
[2023-02-16] VITALS (34 sets, daily range): BP systolic 96–132; BP diastolic 46–77; PULSE 14–111; RESP 12–33; TEMP 35.7–36.6; O2SAT 90–99
[2023-02-16] MEDS: Piperacillin Sodium/Tazobactam 3.375 GM in 0.9 % Sodium Chloride 50 ML IV ×4 (02:23→20:15)
[2023-02-16] MEDS: Levothyroxine Sodium 100 MCG/5 ML VIAL 37.5 MCG IVPUSH (04:57)
[2023-02-16 05:32] LABS: VBG Base Excess 3.4 mmol/L; VBG HCO3 33 mmol/L (22-26); VBG pCO2 80 mmHg; VBG pH 7.22 (7.32-7.43); VBG pO2 63 mmHg
[2023-02-16 05:33] LABS: MANUAL DIFF FLAG NO
[2023-02-16 05:36] LABS: Basophils Percent Auto 0.5 % (0-2); Eosinophils Percent Auto 0.1 % (0-4); Hematocrit 34.4 % (42.0-52.0); Hemoglobin 10.5 g/dl (14.0-18.0); Imm Gran Pct Auto 1.2 % (0.0-0.4); Lymphocytes Absolute Auto 0.6 X10*3/uL (1.2-4.9); Lymphocytes Percent Auto 7.3 % (20-40); Mean Corpuscular HGB Conc 30.5 g/dl (31.0-36.0); Mean Corpuscular Hemoglobin 30.2 pg (27.0-33.0); Mean Corpuscular Volume 98.9 fL (80.0-98.0); Mean Platelet Volume 9.7 fL (9.4-12.4); Monocytes Absolute Auto 0.2 X10*3/uL (0.1-1.2); Monocytes Percent Auto 2.8 % (2-11); NRBC Pct Auto 0.2 /100WBC (0.0-0.2); Neutrophils Absolute Auto 7.5 x10*3/uL (2.0-8.3); Neutrophils Percent Auto 88.1 % (45-73); Platelet Count 115 X10*3/uL (160-400); Red Blood Count 3.48 X10*6/uL (4.60-5.80); Red Cell Distribution Width 17.8 % (11.0-16.0); White Blood Count 8.5 X10*3/uL (4.8-10.8)
--- NOTE | 2023-02-16 05:57 | PC.NURSE ---
Upon initial assessment at 1900- pt alert but drowsy and difficult to assess orientation, minimal speech. Calm/cooperative, moans with care. Afebrile. NSR on tele with occassional PVCs and sinus pauses, HR 70-80s. Levophed remains off, vasopressin infusing per MAR- SBP > 100, MAP > 65. On 3-5L NC most of night, BiPAP placed at approx 0500 r/t VBG- currently on 28/08/30%. NGT in place, approx 1000 mL of dark brown output drained. Minimal serous output from ASAD drain, clot remains in bulb. Nguyen in place, UOP approx 30 ml/hr. Scant BM. Multiple skin integrity concerns- see skin/wound/PI assessments. Repositioned in bed q2hrs. Bed locked in low position.
[2023-02-16 06:00] LABS: Albumin Level 3.3 g/dL (3.5-5.0); Anion Gap 18 (12-20); Blood Urea Nitrogen 41 mg/dL (9-16); Calcium 8.5 mg/dL (8.4-10.2); Carbon Dioxide 29 mmol/L (22-29); Chloride 102 mmol/L (96-108); Creatinine Clr Calc Pharmacy 32.3; Estimated Glomerular Filt Rate 24; Glucose Random 89 mg/dL (60-115); Phosphorus 5.7 mg/dL (2.7-4.5); Potassium 2.7 mmol/L (3.3-5.1); Sodium 146 mmol/L (135-145)
[2023-02-16] MEDS: Potassium Chloride/H20 40 MEQ/100 ML PIGGYBACK 50 MEQ IV (06:14)
[2023-02-16] MEDS: Albuterol/Iprat 2.5/0.5MG 3 ML AMPUL.NEB INHALE ×4 (07:55→20:06)
[2023-02-16 08:00] LABS: Venous Blood Gas Refer to POC result
[2023-02-16] MEDS: 0.9 % Sodium Chloride Flush 3 ML SYRINGE IVFLUSH ×3 (08:03→23:27)
[2023-02-16] MEDS: Nystatin Powder 15 GM BOTTLE 1 APPL TOPICAL ×3 (08:14→20:16)
--- NOTE | 2023-02-16 09:06 | P.PNNP_ITS ---
Subjective Subjective Date of Service: 02/16/23 Principal diagnosis: Acute Cholecystitis and ABEL Interval history: Ongoing overload Pt did well with Net -2L Cr stable Physical Exam 2 Vital Signs: Vital Signs: Last Vital Signs Temp 96.4 F L 02/16/23 08:00 Pulse 81 02/16/23 08:13 Resp 19 02/16/23 08:00 BP 131/77 02/16/23 08:13 Pulse Ox 99 02/16/23 08:00 O2 Del Method BiPAP 02/16/23 08:00 O2 Flow Rate 3 02/16/23 05:00 FiO2 30 02/16/23 08:00 Oxygen Flow Rate 30 02/16/23 07:44 BMI result Body Mass Index 46.6 Const: General: ill appearing Resp: Auscultation: crackles ( Bilateral) Cardio: Rate: tachycardic GI: Palpation (GI): nontender Extrem: General: Yes edema ( 2+ bilateral) Objective Data Labs 02/16/23 05:18 02/16/23 05:18 Labs: Laboratory Results - last 24 hr 02/15/23 02/16/23 02/16/23 12:35 05:18 05:27 WBC 8.5 RBC 3.48 L Hgb 10.5 L Hct 34.4 L MCV 98.9 H MCH 30.2 MCHC 30.5 L RDW 17.8 H Plt Count 115 L MPV 9.7 Immature Gran % (Auto) 1.2 H Neut % (Auto) 88.1 H Lymph % (Auto) 7.3 L [place] % (Auto) 2.8 Eos % (Auto) 0.1 Baso % (Auto) 0.5 Lymph # (Auto) 0.6 L [place] # (Auto) 0.2 Eos # (Auto) 0.0 Baso # (Auto) 0.0 Abs Immat Gran (auto) 0.10 H Absolute Neuts (auto) 7.5 Absolute Nucleated RBC 0.020 H Nucleated RBC % (auto) 0.2 VBG pH 7.22 L VBG pCO2 80 VBG pO2 63 VBG HCO3 33 H VBG O2 Saturation 87.0 VBG Base Excess 3.4 Sodium 146 H Potassium 2.7 L Chloride 102 Carbon Dioxide 29 Anion Gap 18 BUN 41 H Creatinine 2.65 H Estim Creat Clear Calc 32.3 Estimated GFR 24 Random Glucose 89 Calcium 8.5 Phosphorus 5.7 H Magnesium 2.0 Albumin 3.3 L Stool Occult Blood POSITIVE Microbiology Microbiology Results: Microbiology 02/13/23 13:30 Gallbladder Gram Stain - Final 02/13/23 13:30 Gallbladder Routine Culture - Final No growth after 2 days 02/12/23 06:07 Blood - Venous Blood Culture - Preliminary No growth after 48 hours. 02/12/23 06:07 Blood - Venous Blood Culture - Preliminary No growth after 48 hours. 02/11/23 16:24 Blood - Venous Blood Culture - Preliminary No growth after 48 hours. 02/11/23 16:15 Blood - Venous Blood Culture - Final Coag negative Staphylococcus Procedures Date of Service Date of Service: 02/16/23 Assessment & Plan Assessment and plan (1) Acute cholecystitis: Status: Acute (2) ABEL (acute kidney injury): Status: Acute (3) Bacteremia: Status: Acute (4) Morbid obesity: Status: Acute (5) Rheumatoid arthritis: Status: Acute Plan 72-year-old gentleman underlying morbid obesity, DVT on Eliquis, obstructive sleep, rheumatoid arthritis, hypothyroidism admitted 02/11/2023 for acute cholecystitis. Course c/b limited surgical options and Septic shock with volume overload. 1. ABEL, now non-oliguric. 2. Volume overload precipitated by ATN REC: - continue supporting pts diuresis. SO far auto-diuresing. IF this drops off can use Lasix 60mg BID to TID - no BUTTERMAKER indications Time Spent With Patient Time: Total time managing care of this patient today ____ minutes. Progress Note: Quality Stroke Does the patient have a stroke diagnosis?: No
--- NOTE | 2023-02-16 09:08 | PM.PNGS ---
Subjective Subjective Date of Service: 02/16/23 Interval history: patient is somnolent, on CPAP. Currently off pressors. Physical Exam Vital Signs: Vital Signs: Last Vital Signs Temp 96.4 F L 02/16/23 08:00 Pulse 81 02/16/23 08:13 Resp 19 02/16/23 08:00 BP 131/77 02/16/23 08:13 Pulse Ox 99 02/16/23 08:00 O2 Del Method BiPAP 02/16/23 08:00 O2 Flow Rate 3 02/16/23 05:00 FiO2 30 02/16/23 08:00 Oxygen Flow Rate 30 02/16/23 07:44 BMI result Body Mass Index 46.6 Const: General: comfortable and patient obtunded Nutritional Appearance: obese Orientation/consciousness: patient obtunded Eyes: Sclerae: sclerae normal Resp: Other: On CPAP, O2 sat 99% GI: Other: ASAD in place with serosanguineous / bloody discharge. Some clot noted in bulb. Tube milked no additional clot identified. Neuro: General: patient obtunded Extrem: General: Yes edema Objective Data Active Medications Albuterol/Ipratropium (Albuterol/Iprat 2.5/0.5mg 3 Ml Ampul.Neb) 3 ml INHALE RQ4H WHILE AWAKE [facility] Last Admin: 02/16/23 07:55 Dose: 3 ml Documented By: SAIRA Albuterol/Ipratropium (Albuterol/Iprat 2.5/0.5mg 3 Ml Ampul.Neb) 3 ml INHALE RQ4H WHILE AWAKE PRN PRN Reason: Shortness of Breath Last Admin: 02/13/23 04:26 Dose: 3 ml Documented By: GENEVA Fentanyl (Fentanyl Citrate/Pf 100 Mcg/2 Ml Vial) 25 mcg IVPUSH Q2H PRN; Protocol PRN Reason: Pain, Moderate(Pain Scale 4-6) Last Admin: 02/15/23 11:30 Dose: 25 mcg Documented By: MALISSA Piperacillin Sod/Tazobactam (Sod 3.375 gm/ Sodium Chloride) 50 mls @ 100 mls/hr IV Q6H [facility] Last Infusion: 02/16/23 09:01 Dose: Infused Documented By: BENITA Daptomycin 850 mg/ Sodium (Chloride) 67 mls @ 134 mls/hr IV Q24H [facility] Last Infusion: 02/15/23 18:11 Dose: Infused Documented By: MALISSA Norepinephrine Bitartrate (Levophed) 8 mg in 250 mls @ 0 mls/hr IV .Q0M [facility]; Protocol Last Titration: 02/15/23 19:28 Dose: Infused Documented By: HELENA Vasopressin (Vasostrict) 20 unit in 100 mls @ 6 mls/hr IV .[id number] [facility] Last Infusion: 02/16/23 08:13 Dose: 0 unit/min, 0 mls/hr Documented By: BENITA Fluconazole (Diflucan) 200 mg in 100 mls @ 100 mls/hr IV Q24H [facility] Stop: 02/19/23 20:59 Last Infusion: 02/15/23 21:00 Dose: Infused Documented By: HELENA Levothyroxine Sodium (Levothyroxine Sodium 100 Mcg/5 Ml Vial) 37.5 mcg IVPUSH DAILY@0600 [facility] Last Admin: 02/16/23 04:57 Dose: 37.5 mcg Documented By: HELENA Nystatin (Nystatin Powder 15 Gm Bottle) 1 appl TOPICAL TID [facility]; Protocol Last Admin: 02/16/23 08:14 Dose: 1 appl Documented By: BENITA Ondansetron HCl (Ondansetron Hcl 4 Mg/2 Ml Vial) 4 mg IVPUSH QID PRN PRN Reason: Nausea Last Admin: 02/14/23 05:30 Dose: 4 mg Documented By: ANA MARIA Oxycodone HCl (Oxycodone Hcl Immed Release 5 Mg Tablet) 10 mg PO Q6H PRN PRN Reason: Pain, Moderate(Pain Scale 4-6) Sodium Chloride (0.9 % Sodium Chloride Flush 3 Ml Syringe) 3 ml IVFLUSH QSHIFT [facility] Last Admin: 02/16/23 08:03 Dose: 3 ml Documented By: BENITA Labs 02/16/23 05:18 02/16/23 05:18 Labs: Laboratory Results - last 24 hr 02/15/23 02/16/23 02/16/23 12:35 05:18 05:27 MCV 98.9 H MCH 30.2 MCHC 30.5 L RDW 17.8 H Plt Count 115 L MPV 9.7 Immature Gran % (Auto) 1.2 H Neut % (Auto) 88.1 H Lymph % (Auto) 7.3 L [place] % (Auto) 2.8 Eos % (Auto) 0.1 Baso % (Auto) 0.5 Lymph # (Auto) 0.6 L [place] # (Auto) 0.2 Eos # (Auto) 0.0 Baso # (Auto) 0.0 Abs Immat Gran (auto) 0.10 H Absolute Neuts (auto) 7.5 Absolute Nucleated RBC 0.020 H Nucleated RBC % (auto) 0.2 VBG pH 7.22 L VBG pCO2 80 VBG pO2 63 VBG HCO3 33 H VBG O2 Saturation 87.0 VBG Base Excess 3.4 Anion Gap 18 Estim Creat Clear Calc 32.3 Estimated GFR 24 Random Glucose 89 Calcium 8.5 Phosphorus 5.7 H Magnesium 2.0 Albumin 3.3 L Stool Occult Blood POSITIVE Microbiology Microbiology Results: Microbiology 02/13/23 13:30 Gram Stain - Final Gallbladder Routine Culture - Final No growth after 2 days Procedures Date of Service Date of Service: 02/16/23 Progress Note: A&P Assessment and plan (1) Hypotension: Status: Acute Assessment and Plan: BP 131/77, off pressors Echo results: - Normal left ventricular size and systolic function. The visually estimated ejection fraction is between 60-65%. There is no evidence of regional wall motion abnormalities. Diastolic function is normal for age. There is moderate septal asymmetric hypertrophy. - Normal right ventricular cavity size and systolic function. (2) Sepsis: Status: Acute Assessment and Plan: Acute cholecystitis, acalculous. Status post CT-guided cholecystostomy placement 02/13/2023. WBC remains normal patient on Zosyn and fluconazole. final culture results no growth after 2 days (3) Acute cholecystitis: Status: Acute Assessment and Plan: Cholecystostomy tube performed 02/13/2023. Gallbladder adequately drained and sepsis improving. Will keep tube in early several weeks. (4) Venous thromboembolism: Status: Acute Assessment and Plan: Anticoagulation off. Management per ICU team. Time Spent With Patient Time: Total time managing care of this patient today ____ minutes. Quality Stroke Does the patient have a stroke diagnosis?: No VTE Prior VTE?: Yes VTE Risk Level:: Surgical - high VTE Device Contraindication: N/A - Device Ordered VTE Drug Contraindication: N/A - Med Ordered
[2023-02-16] MEDS: Albumin Human 25 % 100 ML 133.33 ML IV ×2 (10:50→11:49)
[2023-02-16] MEDS: Potassium Chloride/H20 40 MEQ/100 ML PIGGYBACK 100 MEQ IV ×2 (10:50→11:54)
--- NOTE | 2023-02-16 11:03 | P.PNCC_ITS ---
Subjective Subjective Date of Service: 02/16/23 Interval History: 72-year-old gentleman underlying morbid obesity, DVT on Eliquis, obstructive sleep, rheumatoid arthritis, hypothyroidism admitted 02/11/2023 for acute cholecystitis. Patient covered empirically with Zosyn and has been evaluated by General surgery with plan for possible cholecystostomy versus cholecystectomy. Overnight patient with developed septic shock requiring initiation of pressor support and transfer to intensive care unit. Status post cholecystostomy tube on 02/13/2023. Overnight titrated off pressor support. Critical Care Time (minutes): 45 Physical Exam 2 Vital Signs: Vital Signs: Last Vital Signs Temp 96.4 F L 02/16/23 08:00 Pulse 95 02/16/23 10:00 Resp 16 02/16/23 10:00 BP 108/57 L 02/16/23 10:00 Pulse Ox 97 02/16/23 10:00 O2 Del Method BiPAP 02/16/23 10:00 O2 Flow Rate 3 02/16/23 05:00 FiO2 30 02/16/23 10:00 Oxygen Flow Rate 30 02/16/23 07:44 BMI result Body Mass Index 46.6 Const: General: no acute distress and lethargic (arousable) Nutritional Appearance: obese and Edematous Orientation/consciousness: lethargic (arousable) Eyes: Sclerae: sclerae normal EOM: EOMs intact bilaterally Neck: Neck: Yes no lymphadenopathy, Yes trachea midline and Yes supple Resp: Effort & Inspection: normal respiratory effort and no respiratory distress Auscultation: crackles ( Bilateral) Cardio: Rate: regular rate Rhythm: regular rhythm Heart sounds: no gallops, no murmurs and no rubs GI: Palpation (GI): Soft to palpation and Other GI palpation findings present ( Nontender) Auscultation: normal bowel sounds Extrem: General: No clubbing, No cyanosis and Yes edema ( 2+ bilateral) Objective Data Labs 02/16/23 05:18 02/16/23 05:18 Labs: Laboratory Results - last 24 hr 02/15/23 02/16/23 02/16/23 12:35 05:18 05:27 WBC 8.5 RBC 3.48 L Hgb 10.5 L Hct 34.4 L MCV 98.9 H MCH 30.2 MCHC 30.5 L RDW 17.8 H Plt Count 115 L MPV 9.7 Immature Gran % (Auto) 1.2 H Neut % (Auto) 88.1 H Lymph % (Auto) 7.3 L [place] % (Auto) 2.8 Eos % (Auto) 0.1 Baso % (Auto) 0.5 Lymph # (Auto) 0.6 L [place] # (Auto) 0.2 Eos # (Auto) 0.0 Baso # (Auto) 0.0 Abs Immat Gran (auto) 0.10 H Absolute Neuts (auto) 7.5 Absolute Nucleated RBC 0.020 H Nucleated RBC % (auto) 0.2 VBG pH 7.22 L VBG pCO2 80 VBG pO2 63 VBG HCO3 33 H VBG O2 Saturation 87.0 VBG Base Excess 3.4 Sodium 146 H Potassium 2.7 L Chloride 102 Carbon Dioxide 29 Anion Gap 18 BUN 41 H Creatinine 2.65 H Estim Creat Clear Calc 32.3 Estimated GFR 24 Random Glucose 89 Calcium 8.5 Phosphorus 5.7 H Magnesium 2.0 Albumin 3.3 L Stool Occult Blood POSITIVE Microbiology Microbiology Results: Microbiology 02/13/23 13:30 Gallbladder Gram Stain - Final 02/13/23 13:30 Gallbladder Routine Culture - Final No growth after 2 days 02/12/23 06:07 Blood - Venous Blood Culture - Preliminary No growth after 48 hours. 02/12/23 06:07 Blood - Venous Blood Culture - Preliminary No growth after 48 hours. 02/11/23 16:24 Blood - Venous Blood Culture - Preliminary No growth after 48 hours. 02/11/23 16:15 Blood - Venous Blood Culture - Final Coag negative Staphylococcus Progress Note: A&P Assessment and plan (1) Rheumatoid arthritis: Status: Acute (2) Morbid obesity: Status: Acute (3) Acute cholecystitis: Status: Acute (4) ABEL (acute kidney injury): Status: Acute Plan Assessment: 72-year-old gentleman with underlying morbid obesity and rheumatoid a 3 status admitted with acute cholecystitis further complicated by bacteremia with septic shock and etabolic acidosis Plan: Neuro: No acute issues. Cardiac: septic shock, resolved, titrated off pressors. Pulmonary: Acute hypoxic respiratory failure secondary to pulmonary edema from resuscitation of septic shock. Continue to titrate off supplemental oxygen as tolerated. Renal: Acute renal failure, likely secondary to ATN from septic shock, improving. Oliguric. Continue to monitor renal indices and urine output. Endo: No acute issues. GI: Acute cholecystitis. General surgery service care appreciated. Now status post cholecystostomy. Overnight cholecystostomy appears to be clotted, also with drop in hemoglobin, will obtain CT abdomen /pelvis. ID: Septic shock secondary to acute cholecystitis , improving. Continue broad- spectrum antibiotic coverage. Heme/Onc: No acute issues. Psych: No acute issues. Miscellaneous: No acute issues. Prophylaxis: heparin Diet: NPO while on BiPAP Critical care time spent: 45 minutes Quality Stroke Does the patient have a stroke diagnosis?: No VTE Prior VTE?: Yes VTE Risk Level:: Surgical - high VTE Device Contraindication: N/A - Device Ordered VTE Drug Contraindication: N/A - Med Ordered
[2023-02-16] MEDS: acetaZOLAMIDE sodium 500 MG VIAL 375 MG IVPUSH ×2 (11:55→20:14)
--- NOTE | 2023-02-16 14:44 | PC.NURSE ---
pt has become increasingly sleepy since removal from bipap. pt now rests and sleeps with apnea periods with correlating saturations to 77% at lowest. resp aware. pt remains on 4 L oxy mask. lung dim, easily rousable.
[2023-02-16] MEDS: DAPTOmycin 850 MG in 0.9 % Sodium Chloride 50 ML 134 MG IV (18:29)
[2023-02-16] MEDS: Fluconazole in NaCl,Iso-Osm 200 MG/100 ML PIGGYBACK 100 MG IV (20:12)
[2023-02-17] VITALS (34 sets, daily range): BP systolic 92–128; BP diastolic 50–82; PULSE 79–115; RESP 12–29; TEMP 36.2–36.9; O2SAT 91–100; BMI 46.6
[2023-02-17] MEDS: Piperacillin Sodium/Tazobactam 3.375 GM in 0.9 % Sodium Chloride 50 ML IV ×4 (03:05→21:07)
[2023-02-17] MEDS: Levothyroxine Sodium 100 MCG/5 ML VIAL 37.5 MCG IVPUSH (05:34)
[2023-02-17 05:50] LABS: VBG Base Excess 1.7 mmol/L; VBG HCO3 26 mmol/L (22-26); VBG pCO2 42 mmHg; VBG pO2 55 mmHg
[2023-02-17 06:20] LABS: MANUAL DIFF FLAG NO
[2023-02-17 06:32] LABS: Venous Blood Gas Refer to POC result
[2023-02-17 06:34] LABS: Basophils Percent Auto 0.4 % (0-2); Eosinophils Percent Auto 0.1 % (0-4); Hematocrit 32.4 % (42.0-52.0); Imm Gran Pct Auto 1.4 % (0.0-0.4); Lymphocytes Absolute Auto 0.7 X10*3/uL (1.2-4.9); Lymphocytes Percent Auto 8.8 % (20-40); Mean Corpuscular HGB Conc 30.9 g/dl (31.0-36.0); Mean Corpuscular Hemoglobin 30.5 pg (27.0-33.0); Mean Corpuscular Volume 98.8 fL (80.0-98.0); Mean Platelet Volume 10.9 fL (9.4-12.4); Monocytes Absolute Auto 0.3 X10*3/uL (0.1-1.2); Monocytes Percent Auto 4.1 % (2-11); Neutrophils Absolute Auto 6.3 x10*3/uL (2.0-8.3); Neutrophils Percent Auto 85.2 % (45-73); Platelet Count 138 X10*3/uL (160-400); Red Blood Count 3.28 X10*6/uL (4.60-5.80); Red Cell Distribution Width 17.9 % (11.0-16.0); White Blood Count 7.4 X10*3/uL (4.8-10.8)
[2023-02-17 07:21] LABS: Albumin Level 3.6 g/dL (3.5-5.0); Anion Gap 26 (12-20); Blood Urea Nitrogen 50 mg/dL (9-16); Carbon Dioxide 25 mmol/L (22-29); Chloride 106 mmol/L (96-108); Creatinine Clr Calc Pharmacy 32.5; Estimated Glomerular Filt Rate 24; Glucose Random 54 mg/dL (60-115); Magnesium 2.2 mg/dL (1.6-2.6); Phosphorus 2.6 mg/dL (2.7-4.5); Potassium 3.3 mmol/L (3.3-5.1); Sodium 154 mmol/L (135-145)
--- NOTE | 2023-02-17 07:29 | PM.PNGS ---
Subjective Subjective Date of Service: 02/17/23 Patient reports: no new complaints Physical Exam Vital Signs: Vital Signs: Last Vital Signs Temp 98.4 F 02/17/23 04:00 Pulse 100 02/17/23 07:00 Resp 15 02/17/23 07:00 BP 106/62 02/17/23 07:00 Pulse Ox 97 02/17/23 07:00 O2 Del Method BiPAP 02/17/23 07:00 O2 Flow Rate 5 02/16/23 23:00 FiO2 28 02/17/23 07:00 Oxygen Flow Rate 30 02/16/23 07:44 BMI result Body Mass Index 46.6 Objective Data Active Medications Acetazolamide (Acetazolamide Sodium 500 Mg Vial) 375 mg IVPUSH BID [facility] Last Admin: 02/16/23 20:14 Dose: 375 mg Documented By: NISSA Albuterol/Ipratropium (Albuterol/Iprat 2.5/0.5mg 3 Ml Ampul.Neb) 3 ml INHALE RQ4H WHILE AWAKE [facility] Last Admin: 02/16/23 20:06 Dose: 3 ml Documented By: ALCIDES Albuterol/Ipratropium (Albuterol/Iprat 2.5/0.5mg 3 Ml Ampul.Neb) 3 ml INHALE RQ4H WHILE AWAKE PRN PRN Reason: Shortness of Breath Last Admin: 02/13/23 04:26 Dose: 3 ml Documented By: GENEVA Fentanyl (Fentanyl Citrate/Pf 100 Mcg/2 Ml Vial) 25 mcg IVPUSH Q2H PRN; Protocol PRN Reason: Pain, Moderate(Pain Scale 4-6) Last Admin: 02/15/23 11:30 Dose: 25 mcg Documented By: MALISSA Piperacillin Sod/Tazobactam (Sod 3.375 gm/ Sodium Chloride) 50 mls @ 100 mls/hr IV Q6H [facility] Last Infusion: 02/17/23 03:38 Dose: Infused Documented By: NISSA Daptomycin 850 mg/ Sodium (Chloride) 67 mls @ 134 mls/hr IV Q24H [facility] Last Infusion: 02/16/23 19:08 Dose: Infused Documented By: NISSA Norepinephrine Bitartrate (Levophed) 8 mg in 250 mls @ 0 mls/hr IV .Q0M [facility]; Protocol Last Titration: 02/15/23 19:28 Dose: Infused Documented By: HELENA Vasopressin (Vasostrict) 20 unit in 100 mls @ 6 mls/hr IV .[id number] [facility] Last Admin: 02/16/23 20:16 Dose: Not Given Documented By: NISSA Non-Admin Reason: parameters not met Fluconazole (Diflucan) 200 mg in 100 mls @ 100 mls/hr IV Q24H [facility] Stop: 02/19/23 20:59 Last Infusion: 02/16/23 21:18 Dose: Infused Documented By: NISSA Levothyroxine Sodium (Levothyroxine Sodium 100 Mcg/5 Ml Vial) 37.5 mcg IVPUSH DAILY@0600 [facility] Last Admin: 02/17/23 05:34 Dose: 37.5 mcg Documented By: NISSA Nystatin (Nystatin Powder 15 Gm Bottle) 1 appl TOPICAL TID [facility]; Protocol Last Admin: 02/16/23 20:16 Dose: 1 appl Documented By: NISSA Ondansetron HCl (Ondansetron Hcl 4 Mg/2 Ml Vial) 4 mg IVPUSH QID PRN PRN Reason: Nausea Last Admin: 02/14/23 05:30 Dose: 4 mg Documented By: ANA MARIA Sodium Chloride (0.9 % Sodium Chloride Flush 3 Ml Syringe) 3 ml IVFLUSH QSHIFT [facility] Last Admin: 02/16/23 23:27 Dose: 3 ml Documented By: NISSA Labs 02/17/23 05:35 02/17/23 05:35 Labs: Laboratory Results - last 24 hr 02/17/23 02/17/23 05:35 05:44 MCV 98.8 H MCH 30.5 MCHC 30.9 L RDW 17.9 H Plt Count 138 L MPV 10.9 Immature Gran % (Auto) 1.4 H Neut % (Auto) 85.2 H Lymph % (Auto) 8.8 L [place] % (Auto) 4.1 Eos % (Auto) 0.1 Baso % (Auto) 0.4 Lymph # (Auto) 0.7 L [place] # (Auto) 0.3 Eos # (Auto) 0.0 Baso # (Auto) 0.0 Abs Immat Gran (auto) 0.10 H Absolute Neuts (auto) 6.3 Absolute Nucleated RBC 0.000 Nucleated RBC % (auto) 0.0 VBG pH 7.40 VBG pCO2 42 VBG pO2 55 VBG HCO3 26 VBG O2 Saturation 86.0 VBG Base Excess 1.7 Anion Gap 26 H Estim Creat Clear Calc 32.5 Estimated GFR 24 Random Glucose 54 L* Calcium 9.0 Phosphorus 2.6 L Magnesium 2.[address] scan - abdomen: My impression: bilateral pleural effusions IR drain in right lobe of liver outside of gallbladder gallbladder may be more distended now intra-abdominal calcified structure of unknown etiology, does not appear to be a gallstone Microbiology Microbiology Results: Microbiology 02/11/23 16:24 Blood Culture - Final Blood - Venous No growth after 5 days. Procedures Date of Service Date of Service: 02/17/23 Progress Note: A&P Assessment and plan (1) Acute cholecystitis: Status: Acute Plan cholecystostomy tube unfortunately has moved out of place. tube should ideally be replaced WBC remains normal, H&H stable. Time Spent With Patient Time: Total time managing care of this patient today ____ minutes. Quality Stroke Does the patient have a stroke diagnosis?: No VTE Prior VTE?: Yes VTE Risk Level:: Surgical - high VTE Device Contraindication: N/A - Device Ordered VTE Drug Contraindication: N/A - Med Ordered
[2023-02-17] MEDS: Albuterol/Iprat 2.5/0.5MG 3 ML AMPUL.NEB INHALE ×4 (07:43→20:19)
[2023-02-17 07:55] LABS: Glucose, Whole Blood 53 mg/dL (60-115)
[2023-02-17 07:55] LABS: Glucose, Whole Blood 80 mg/dL (60-115)
[2023-02-17] MEDS: Dextrose 50 % 25 GM/50 ML SYRINGE IVPUSH (08:01)
[2023-02-17] MEDS: Potassium Chloride/H20 40 MEQ/100 ML PIGGYBACK 100 MEQ IV (08:02)
[2023-02-17] MEDS: Dextrose 5 % 1,000 ML 125 ML IVCONT (08:06)
[2023-02-17] MEDS: 0.9 % Sodium Chloride Flush 3 ML SYRINGE IVFLUSH ×3 (08:09→21:45)
[2023-02-17] MEDS: acetaZOLAMIDE sodium 500 MG VIAL 375 MG IVPUSH ×2 (08:10→20:02)
[2023-02-17] MEDS: Nystatin Powder 15 GM BOTTLE 1 APPL TOPICAL ×3 (08:11→20:09)
--- NOTE | 2023-02-17 08:18 | P.PNNP_ITS ---
Subjective Subjective Date of Service: 02/17/23 Principal diagnosis: Acute Cholecystitis and ABEL Interval history: off pressors ATN stable, auto-diuresing. Net -1.7L Hypernatremic from renal water losses Physical Exam 2 Vital Signs: Vital Signs: Last Vital Signs Temp 98.4 F 02/17/23 04:00 Pulse 106 H 02/17/23 08:00 Resp 24 H 02/17/23 08:00 BP 118/59 L 02/17/23 08:00 Pulse Ox 100 02/17/23 08:00 O2 Del Method Oxymask 02/17/23 08:00 O2 Flow Rate 5 02/16/23 23:00 FiO2 28 02/17/23 07:00 Oxygen Flow Rate 30 02/16/23 07:44 BMI result Body Mass Index 46.6 Const: General: ill appearing Resp: Auscultation: crackles ( Bilateral) Cardio: Rate: tachycardic GI: Palpation (GI): nontender Extrem: General: Yes edema ( 2+ bilateral) Objective Data Labs 02/17/23 05:35 02/17/23 05:35 Labs: Laboratory Results - last 24 hr 02/17/23 02/17/23 02/17/23 05:35 05:44 07:29 WBC 7.4 RBC 3.28 L Hgb 10.0 L Hct 32.4 L MCV 98.8 H MCH 30.5 MCHC 30.9 L RDW 17.9 H Plt Count 138 L MPV 10.9 Immature Gran % (Auto) 1.4 H Neut % (Auto) 85.2 H Lymph % (Auto) 8.8 L [place] % (Auto) 4.1 Eos % (Auto) 0.1 Baso % (Auto) 0.4 Lymph # (Auto) 0.7 L [place] # (Auto) 0.3 Eos # (Auto) 0.0 Baso # (Auto) 0.0 Abs Immat Gran (auto) 0.10 H Absolute Neuts (auto) 6.3 Absolute Nucleated RBC 0.000 Nucleated RBC % (auto) 0.0 VBG pH 7.40 VBG pCO2 42 VBG pO2 55 VBG HCO3 26 VBG O2 Saturation 86.0 VBG Base Excess 1.7 Sodium 154 H Potassium 3.3 D Chloride 106 Carbon Dioxide 25 Anion Gap 26 H BUN 50 H Creatinine 2.64 H Estim Creat Clear Calc 32.5 Estimated GFR 24 POC Glucose 53 L* Random Glucose 54 L* Calcium 9.0 Phosphorus 2.6 L Magnesium 2.2 Albumin 3.6 02/17/23 07:50 WBC RBC Hgb Hct MCV MCH MCHC RDW Plt Count MPV Immature Gran % (Auto) Neut % (Auto) Lymph % (Auto) [place] % (Auto) Eos % (Auto) Baso % (Auto) Lymph # (Auto) [place] # (Auto) Eos # (Auto) Baso # (Auto) Abs Immat Gran (auto) Absolute Neuts (auto) Absolute Nucleated RBC Nucleated RBC % (auto) VBG pH VBG pCO2 VBG pO2 VBG HCO3 VBG O2 Saturation VBG Base Excess Sodium Potassium Chloride Carbon Dioxide Anion Gap BUN Creatinine Estim Creat Clear Calc Estimated GFR POC Glucose 80 Random Glucose Calcium Phosphorus Magnesium Albumin Microbiology Microbiology Results: Microbiology 02/12/23 06:07 Blood - Venous Blood Culture - Final No growth after 5 days. 02/12/23 06:07 Blood - Venous Blood Culture - Final No growth after 5 days. 02/11/23 16:24 Blood - Venous Blood Culture - Final No growth after 5 days. 02/13/23 13:30 Gallbladder Gram Stain - Final 02/13/23 13:30 Gallbladder Routine Culture - Final No growth after 2 days 02/11/23 16:15 Blood - Venous Blood Culture - Final Coag negative Staphylococcus Procedures Date of Service Date of Service: 02/17/23 Assessment & Plan Assessment and plan (1) Acute cholecystitis: Status: Acute (2) ABEL (acute kidney injury): Status: Acute (3) Bacteremia: Status: Acute (4) Morbid obesity: Status: Acute (5) Rheumatoid arthritis: Status: Acute Plan 72-year-old gentleman underlying morbid obesity, DVT on Eliquis, obstructive sleep, rheumatoid arthritis, hypothyroidism admitted 02/11/2023 for acute cholecystitis. Course c/b limited surgical options and Septic shock with volume overload. Required Latrice-tube. 1. ABEL, now non-oliguric. 2. Volume overload precipitated by ATN 3. Hypernatremia precipitated by post-ATN diuresis. REC: - AIm for Net -1L/day of volume - replace water with D5/w gtt (will not volume expand pt) - renal panel daily. Time Spent With Patient Time: Total time managing care of this patient today ____ minutes. Progress Note: Quality Stroke Does the patient have a stroke diagnosis?: No
[2023-02-17] MEDS: Potassium Phosphate/NS 15 MMOL/250 ML PLAST..BAG 62.5 MMOL IV (08:44)
--- NOTE | 2023-02-17 10:11 | MHC.CLN ---
F/U CONTINUES NPO AND PATIENT TO START TPN TODAY. SKIN NOW WITH STAGE II PRESSURE INJURIES TO BILATERAL BUTTOCKS. LABS REVIEWED AND COMMUNICATED WITH PHARMACY. RECOMMEND START TPN TODAY AT 40 ML PER HOUR, 144 G DEXTROSE, 48 G PROTEIN, 682 KCALS. REPLETES LYTES NEEDED. CHECK TRIGLYCERIDES. MONITOR TPN TOLERANCE, LYTES AND SKIN INTEGRITY.
--- NOTE | 2023-02-17 11:10 | P.PNCC_ITS ---
Subjective Subjective Date of Service: 02/17/23 Interval History: 72-year-old gentleman underlying morbid obesity, DVT on Eliquis, obstructive sleep, rheumatoid arthritis, hypothyroidism admitted 02/11/2023 for acute cholecystitis. Patient covered empirically with Zosyn and has been evaluated by General surgery with plan for possible cholecystostomy versus cholecystectomy. Overnight patient with developed septic shock requiring initiation of pressor support and transfer to intensive care unit. Status post cholecystostomy tube on 02/13/2023. no events overnight. Still with significant ileus. Critical Care Time (minutes): 45 Physical Exam 2 Vital Signs: Vital Signs: Last Vital Signs Temp 97.9 F 02/17/23 10:00 Pulse 108 H 02/17/23 11:00 Resp 24 H 02/17/23 11:00 BP 119/50 L 02/17/23 11:00 Pulse Ox 97 02/17/23 11:00 O2 Del Method Oxymask 02/17/23 11:00 O2 Flow Rate 4 02/17/23 11:00 FiO2 28 02/17/23 07:00 Oxygen Flow Rate 30 02/16/23 07:44 BMI result Body Mass Index 46.6 Const: General: no acute distress, alert and awake Nutritional Appearance: obese and Edematous Eyes: Sclerae: sclerae normal EOM: EOMs intact bilaterally Neck: Neck: Yes no lymphadenopathy, Yes trachea midline and Yes supple Resp: Effort & Inspection: normal respiratory effort and no respiratory distress Auscultation: crackles bilateral Cardio: Rate: tachycardic Rhythm: regular rhythm Heart sounds: no gallops, no murmurs and no rubs GI: Palpation (GI): Soft to palpation and Other GI palpation findings present ( Nontender) Auscultation: normal bowel sounds Extrem: General: No clubbing, No cyanosis and Yes edema ( 3+ bilateral) Objective Data Labs 02/17/23 05:35 02/17/23 05:35 Labs: Laboratory Results - last 24 hr 02/17/23 02/17/23 02/17/23 05:35 05:44 07:29 WBC 7.4 RBC 3.28 L Hgb 10.0 L Hct 32.4 L MCV 98.8 H MCH 30.5 MCHC 30.9 L RDW 17.9 H Plt Count 138 L MPV 10.9 Immature Gran % (Auto) 1.4 H Neut % (Auto) 85.2 H Lymph % (Auto) 8.8 L [place] % (Auto) 4.1 Eos % (Auto) 0.1 Baso % (Auto) 0.4 Lymph # (Auto) 0.7 L [place] # (Auto) 0.3 Eos # (Auto) 0.0 Baso # (Auto) 0.0 Abs Immat Gran (auto) 0.10 H Absolute Neuts (auto) 6.3 Absolute Nucleated RBC 0.000 Nucleated RBC % (auto) 0.0 VBG pH 7.40 VBG pCO2 42 VBG pO2 55 VBG HCO3 26 VBG O2 Saturation 86.0 VBG Base Excess 1.7 Sodium 154 H Potassium 3.3 D Chloride 106 Carbon Dioxide 25 Anion Gap 26 H BUN 50 H Creatinine 2.64 H Estim Creat Clear Calc 32.5 Estimated GFR 24 POC Glucose 53 L* Random Glucose 54 L* Calcium 9.0 Phosphorus 2.6 L Magnesium 2.2 Albumin 3.6 02/17/23 07:50 WBC RBC Hgb Hct MCV MCH MCHC RDW Plt Count MPV Immature Gran % (Auto) Neut % (Auto) Lymph % (Auto) [place] % (Auto) Eos % (Auto) Baso % (Auto) Lymph # (Auto) [place] # (Auto) Eos # (Auto) Baso # (Auto) Abs Immat Gran (auto) Absolute Neuts (auto) Absolute Nucleated RBC Nucleated RBC % (auto) VBG pH VBG pCO2 VBG pO2 VBG HCO3 VBG O2 Saturation VBG Base Excess Sodium Potassium Chloride Carbon Dioxide Anion Gap BUN Creatinine Estim Creat Clear Calc Estimated GFR POC Glucose 80 Random Glucose Calcium Phosphorus Magnesium Albumin Microbiology Microbiology Results: Microbiology 02/12/23 06:07 Blood - Venous Blood Culture - Final No growth after 5 days. 02/12/23 06:07 Blood - Venous Blood Culture - Final No growth after 5 days. 02/11/23 16:24 Blood - Venous Blood Culture - Final No growth after 5 days. 02/13/23 13:30 Gallbladder Gram Stain - Final 02/13/23 13:30 Gallbladder Routine Culture - Final No growth after 2 days 02/11/23 16:15 Blood - Venous Blood Culture - Final Coag negative Staphylococcus Progress Note: A&P Assessment and plan (1) Acute cholecystitis: Status: Acute (2) Ileus: Status: Acute (3) Rheumatoid arthritis: Status: Acute (4) Morbid obesity: Status: Acute (5) Hypothyroidism: Status: Acute Plan Assessment: 72-year-old gentleman with underlying morbid obesity and rheumatoid a 3 status admitted with acute cholecystitis further complicated by bacteremia with septic shock and etabolic acidosis Plan: Neuro: No acute issues. Cardiac: septic shock, resolved, titrated off pressors. Pulmonary: Acute hypoxic respiratory failure secondary to pulmonary edema from resuscitation of septic shock. Continue to titrate off supplemental oxygen as tolerated. Renal: Acute renal failure, likely secondary to ATN from septic shock, improving. Non oliguric. Continue to monitor renal indices and urine output. Endo: No acute issues. GI: Acute cholecystitis. General surgery service care appreciated. Now status post cholecystostomy. cholecystostomy with migration into the liver. IR evaluation requested. Now with significant ileus. ID: Septic shock secondary to acute cholecystitis, resolved. Continue broad- spectrum antibiotic coverage. Bile cultures with fungal elements started on fluconazole. Heme/Onc: No acute issues. Psych: No acute issues. Miscellaneous: No acute issues. Prophylaxis: heparin Diet: TPN Quality Stroke Does the patient have a stroke diagnosis?: No VTE Prior VTE?: Yes VTE Risk Level:: Surgical - high VTE Device Contraindication: N/A - Device Ordered VTE Drug Contraindication: N/A - Med Ordered
[2023-02-17 12:39] LABS: Glucose, Whole Blood 116 mg/dL (60-115)
[2023-02-17] MEDS: Bumetanide 1 MG/4 ML VIAL IVPUSH (15:33)
--- NOTE | 2023-02-17 16:37 | PC.NURSE ---
pt oriented x 1 and mostly unable to cooperative in questions or participate in assessment. pt moves upper extremities in flailing non specific pattern. pulls at oxy mask. pt has weeping edema to bilat lower extremities with open area from swelling and skin separation. dry patches encompassing entire body with epidermal skin loss to back. skin thin and red, protective wraps to arms and legs.
[2023-02-17] MEDS: DAPTOmycin 850 MG in 0.9 % Sodium Chloride 50 ML 134 MG IV (18:15)
[2023-02-17 18:18] LABS: Anion Gap 23 (12-20); Blood Urea Nitrogen 48 mg/dL (9-16); Calcium 8.9 mg/dL (8.4-10.2); Carbon Dioxide 29 mmol/L (22-29); Chloride 107 mmol/L (96-108); Creatinine Clr Calc Pharmacy 33.2; Estimated Glomerular Filt Rate 24; Glucose Random 157 mg/dL (60-115); Potassium 3.8 mmol/L (3.3-5.1); Sodium 155 mmol/L (135-145)
[2023-02-17] MEDS: Fluconazole in NaCl,Iso-Osm 200 MG/100 ML PIGGYBACK 100 MG IV (19:53)
[2023-02-17] MEDS: Parenteral Nutrition 960 ML 40 ML IV (21:39)
[2023-02-18] VITALS (32 sets, daily range): BP systolic 107–144; BP diastolic 54–90; PULSE 87–110; RESP 11–26; TEMP 35.9–36.6; O2SAT 93–100; BMI 48.2
--- NOTE | 2023-02-18 | ECG_ITS ---
Test Reason : HR rate changes Blood Pressure : / mmHG Vent. Rate : 101 BPM Atrial Rate : 101 BPM P-R Int : 212 ms QRS Dur : 090 ms QT Int : 306 ms P-R-T Axes : 056 020 -88 degrees QTc Int : 396 ms Sinus tachycardia with 1st degree A-V block Nonspecific ST and T wave abnormality Intra-ventricular conduction delay Abnormal ECG No previous ECGs available Referred By: Danae Hartman Electronically Signed By:MITCHEL PATTON MD
[2023-02-18 00:36] LABS: Glucose, Whole Blood 168 mg/dL (60-115)
[2023-02-18] MEDS: Piperacillin Sodium/Tazobactam 3.375 GM in 0.9 % Sodium Chloride 50 ML IV ×4 (02:13→21:06)
[2023-02-18 04:29] LABS: VBG Base Excess 10.2 mmol/L; VBG HCO3 35 mmol/L (22-26); VBG pCO2 50 mmHg; VBG pH 7.45 (7.32-7.43); VBG pO2 49 mmHg
[2023-02-18 04:47] LABS: Venous Blood Gas Refer to POC result
[2023-02-18 04:52] LABS: MANUAL DIFF FLAG NO
[2023-02-18 04:54] LABS: Basophils Percent Auto 0.1 % (0-2); Eosinophils Percent Auto 0.1 % (0-4); Hematocrit 34.6 % (42.0-52.0); Hemoglobin 10.4 g/dl (14.0-18.0); Imm Gran Abs Auto 0.13 X10*3/uL (0.00-0.03); Imm Gran Pct Auto 1.5 % (0.0-0.4); Lymphocytes Absolute Auto 0.9 X10*3/uL (1.2-4.9); Mean Corpuscular HGB Conc 30.1 g/dl (31.0-36.0); Mean Corpuscular Hemoglobin 29.3 pg (27.0-33.0); Mean Corpuscular Volume 97.5 fL (80.0-98.0); Mean Platelet Volume 10.3 fL (9.4-12.4); Monocytes Absolute Auto 0.3 X10*3/uL (0.1-1.2); Monocytes Percent Auto 3.6 % (2-11); NRBC Pct Auto 0.2 /100WBC (0.0-0.2); Neutrophils Absolute Auto 7.3 x10*3/uL (2.0-8.3); Neutrophils Percent Auto 84.7 % (45-73); Platelet Count 147 X10*3/uL (160-400); Red Blood Count 3.55 X10*6/uL (4.60-5.80); Red Cell Distribution Width 18.3 % (11.0-16.0); White Blood Count 8.6 X10*3/uL (4.8-10.8)
[2023-02-18 05:14] LABS: Albumin Level 3.4 g/dL (3.5-5.0); Anion Gap 20 (12-20); Blood Urea Nitrogen 45 mg/dL (9-16); Calcium 9.1 mg/dL (8.4-10.2); Carbon Dioxide 32 mmol/L (22-29); Chloride 108 mmol/L (96-108); Estimated Glomerular Filt Rate 25; Glucose Random 186 mg/dL (60-115); Phosphorus 2.5 mg/dL (2.7-4.5); Sodium 157 mmol/L (135-145)
[2023-02-18] MEDS: Levothyroxine Sodium 100 MCG/5 ML VIAL 37.5 MCG IVPUSH (05:59)
[2023-02-18] MEDS: Potassium Phosphate/NS 15 MMOL/250 ML PLAST..BAG 62.5 MMOL IV ×3 (06:04→19:06)
--- NOTE | 2023-02-18 06:35 | PC.NURSE ---
PT ON BIPAP FACEMASK. TOLERATING WELL. O2 SATS MID 90'S-100%. PT IS LETHARGIC BUT RESPONSIVE TO NAME. DOES NOT FOLLOW COMMANDS. VERY WEAK EXTREMITIES. MOVES ARMS BETTER THAN LEGS. INCONTINENT OF LARGE AMOUNT OF BROWN STOOL. BEDBATH GIVEN AND PT REPOS. SKIN IS EXTREMELY RED ON TRUNK, BACK AND LEGS AND VERY DRY WITH PEELING SKIN CAUSING BLEEDING IN SOME AREAS. BARRIER CREAM APPLIED. TURNING BED USED. BP STABLE. AFEBRILE. MONITOR SHOW SR-ST80'S-100'S, OCC PAC NOTED. NO DRAINAGE FROM GOLDEN ASAD DRAIN. NGT TO LWIS AND DRAINED 1100 ML BROWN FLUID.
--- NOTE | 2023-02-18 07:00 | CA_ITS ---
Transthoracic Echocardiogram Patient (Last, First, Middle): Rich Nance C Gender: Male Date of : 1950 Age: 72 Procedure Date: 02/18/2023 Procedure Type: Transthoracic Echocardiogram Location: ICU Height: 170. cm Weight: 139.26 kg BSA: 2.42 m2 Heart Rate: 105 bpm BP: 129 / 81 mmHg Sisal Operator: PIERRE Referring MD: Danae Hartman MD Supply And Distribution Manager: Antoine Guajardo MD Symptoms: Bradycardia Study Quality: Technically Difficult/w Contrast ECG Rhythm: Tachycardia Conclusions: - Normal LVEF of 60-65% with impaired relaxation filling pattern although technically very limited study Findings Procedure Information Contrast agent, definity, is being given per protocol without apparent complications. Left Ventricle The left ventricle was not well visualized. The visually estimated ejection fraction is between 60-65%. Spectral Doppler is indicative of an impaired relaxation filling pattern. E/E prime ratio is between 8 and 15 consistent with indeterminate filling pressures. Right Ventricle The right ventricle was not well visualized. Venous The inferior vena cava was not well visualized. Measurements 2D Linear Measurements IVSd: 1.01 0.6-0.9/0.6-1.0 cm LVIDd: 4.04 3.9-5.3/4.2-5.9 cm LVIDd Index: 1.67 2.4-3.2/2.2-3.1 cm/m2 LVIDs: 3.43 2.0-3.6 cm LVPWd: 1.07 0.7-1.1 cm LA Diam: 3.60 2.7-3.8/3.0-4.0 cm LAIDs Index: 1.49 1.5-2.3 cm/m2 LV Mass: 169.81 67-162/88-224 g LV Mass Index: 70.17 43-95/49-115 g/m2 LVOT Diam: 2.30 3.0+(-)1.3 cm 2D Systolic Function EF 4C: 62.70 >55% EF 2C: 55.20 >55% EF BiP: 60.70 >55% Mitral Valve MV Pk E: 0.53 MV PK A: 0.85 MV Decel Time: 335.00 E/A: 0.60 E'Lateral: 9.03 E'Medial: 5.33 E/E' Med: 9.90 E/E' Lat: 5.80 PHT: 98.00 MVA PHT: 2.24 Decel [place]: 1.57 LVOT LVOT Pk Talon: 1.00 LVOT Mn Talon: 0.72 LVOT VTI: 0.16 LVOT Pk Grad: 4.00 LVOT Mn Grad: 2.00 LVOT Diam: 2.30 LVOT Area: 4.15 Diastolic Function MV Pk E: 0.53 MV Pk A: 0.85 E/A: 0.60 E'Medial: 5.33 E/E' Med: 9.90 E' Laterial: 9.03 E/E' Lat: 5.80 Updated in Other Vendor System with Status of Final Antoine Guajardo MD electronically signed on 02/18/2023 4:44:34 PM with status of Final
[2023-02-18] MEDS: Bumetanide 1 MG/4 ML VIAL IVPUSH (07:36)
[2023-02-18] MEDS: acetaZOLAMIDE sodium 500 MG VIAL 375 MG IVPUSH ×2 (07:42→20:24)
--- NOTE | 2023-02-18 07:45 | P.PNCC_ITS ---
Subjective Subjective Date of Service: 02/18/23 Critical Care Time (minutes): 90 Physical Exam 2 Vital Signs: Vital Signs: Last Vital Signs Temp 97.3 F 02/18/23 00:00 Pulse 98 02/18/23 07:00 Resp 18 02/18/23 07:00 BP 110/67 02/18/23 07:00 Pulse Ox 100 02/18/23 07:00 O2 Del Method BiPAP 02/18/23 07:00 O2 Flow Rate 4 02/17/23 17:00 FiO2 30 02/18/23 07:00 Oxygen Flow Rate 30 02/16/23 07:44 BMI result Body Mass Index 48.2 Const: General: comfortable, no acute distress, alert and awake HEENT: Head: Yes normal to inspection, Yes normocephalic and Yes atraumatic Eyes: General: appearance normal, both eyes and all related structures Neck: Neck: Yes normal visual inspection and Yes supple Chest: Chest palpation & inspection: normal inspection of the chest Resp: Other: no appreciable rales, rhonchi, wheezing throughout Cardio: Rate: regular rate Rhythm: regular rhythm GI: Other: appreciable ASAD drain RUQ clean, dry, intact Inspection: Yes normal to inspection, No Abdominal wall edema, No distended and Yes obesity Palpation (GI): Soft to palpation, not firm, nontender, no guarding and not rigid : Male General Exam: Yes normal external exam Skin: General skin exam: no rashes or lesions noted Neuro: Other: not oriented to person, place, nor time Extrem: Other: diffuse non-pitting edema General: Yes capillary refill normal Psych: Other: some appreciable anxiety Objective Data Labs 02/18/23 04:16 02/18/23 04:16 Labs: Laboratory Results - last 24 hr 02/17/23 02/17/23 02/17/23 07:29 07:50 12:36 WBC RBC Hgb Hct MCV MCH MCHC RDW Plt Count MPV Immature Gran % (Auto) Neut % (Auto) Lymph % (Auto) [place] % (Auto) Eos % (Auto) Baso % (Auto) Lymph # (Auto) [place] # (Auto) Eos # (Auto) Baso # (Auto) Abs Immat Gran (auto) Absolute Neuts (auto) Absolute Nucleated RBC Nucleated RBC % (auto) VBG pH VBG pCO2 VBG pO2 VBG HCO3 VBG O2 Saturation VBG Base Excess Sodium Potassium Chloride Carbon Dioxide Anion Gap BUN Creatinine Estim Creat Clear Calc Estimated GFR POC Glucose 53 L* 80 116 H Random Glucose Calcium Phosphorus Magnesium Albumin 02/17/23 02/18/23 02/18/23 17:51 00:26 04:16 WBC 8.6 RBC 3.55 L Hgb 10.4 L Hct 34.6 L MCV 97.5 MCH 29.3 MCHC 30.1 L RDW 18.3 H Plt Count 147 L MPV 10.3 Immature Gran % (Auto) 1.5 H Neut % (Auto) 84.7 H Lymph % (Auto) 10.0 L [place] % (Auto) 3.6 Eos % (Auto) 0.1 Baso % (Auto) 0.1 Lymph # (Auto) 0.9 L [place] # (Auto) 0.3 Eos # (Auto) 0.0 Baso # (Auto) 0.0 Abs Immat Gran (auto) 0.13 H Absolute Neuts (auto) 7.3 Absolute Nucleated RBC 0.020 H Nucleated RBC % (auto) 0.2 VBG pH VBG pCO2 VBG pO2 VBG HCO3 VBG O2 Saturation VBG Base Excess Sodium 155 H 157 H Potassium 3.8 3.0 L D Chloride 107 108 Carbon Dioxide 29 32 H Anion Gap 23 H 20 BUN 48 H 45 H Creatinine 2.58 H 2.50 H Estim Creat Clear Calc 33.2 35.0 Estimated GFR 24 25 POC Glucose 168 H Random Glucose 157 H 186 H Calcium 8.9 9.1 Phosphorus 2.5 L Magnesium 2.0 Albumin 3.4 L 02/18/23 04:22 WBC RBC Hgb Hct MCV MCH MCHC RDW Plt Count MPV Immature Gran % (Auto) Neut % (Auto) Lymph % (Auto) [place] % (Auto) Eos % (Auto) Baso % (Auto) Lymph # (Auto) [place] # (Auto) Eos # (Auto) Baso # (Auto) Abs Immat Gran (auto) Absolute Neuts (auto) Absolute Nucleated RBC Nucleated RBC % (auto) VBG pH 7.45 H VBG pCO2 50 VBG pO2 49 VBG HCO3 35 H VBG O2 Saturation 81.0 VBG Base Excess 10.2 Sodium Potassium Chloride Carbon Dioxide Anion Gap BUN Creatinine Estim Creat Clear Calc Estimated GFR POC Glucose Random Glucose Calcium Phosphorus Magnesium Albumin Microbiology Microbiology Results: Microbiology 02/12/23 06:07 Blood - Venous Blood Culture - Final No growth after 5 days. 02/12/23 06:07 Blood - Venous Blood Culture - Final No growth after 5 days. 02/11/23 16:24 Blood - Venous Blood Culture - Final No growth after 5 days. 02/13/23 13:30 Gallbladder Gram Stain - Final 02/13/23 13:30 Gallbladder Routine Culture - Final No growth after 2 days 02/11/23 16:15 Blood - Venous Blood Culture - Final Coag negative Staphylococcus Progress Note: A&P Assessment and plan (1) Acute cholecystitis: Status: Acute Plan Patient is a 72 Y M with morbid obesity, c/b MICHAEL, rheumatoid arthritis, and prior DVT on apixaban, hypothyroidism p/w acute cholecystitis on 02/11, c/b septic shock, s/p cholecystostomy on 02/13; course c/b pulmonary edema, ileus N: no acute issues CV: septic shock, improved R: acute hypoxic respiratory failure d/t pulmonary edema; wean oxygen support as tolerated GI: acute cholecystitis, s/p cholecystostomy, c/f possible migration to liver; appreciate IR and general surgery recommendations; TPN : non-oligouric ABEL; continue to monitor H: no acute issues; to hold anticoagulation for any procedural planning ID: acute cholecystitis, c/b septic shock, s/p cholecystostmy, continue zosyn, fluconazole E: no acute issues P: no acute issues Quality Stroke Does the patient have a stroke diagnosis?: No VTE Prior VTE?: Yes VTE Risk Level:: Surgical - high VTE Device Contraindication: N/A - Device Ordered VTE Drug Contraindication: Treatment Not Tolerated
[2023-02-18] MEDS: Nystatin Powder 15 GM BOTTLE 1 APPL TOPICAL ×3 (07:54→20:27)
[2023-02-18] MEDS: 0.9 % Sodium Chloride Flush 3 ML SYRINGE IVFLUSH ×2 (07:54→16:29)
[2023-02-18] MEDS: Albuterol/Iprat 2.5/0.5MG 3 ML AMPUL.NEB INHALE ×3 (08:05→18:57)
[2023-02-18 08:31] LABS: VBG Base Excess 11.6 mmol/L; VBG HCO3 36 mmol/L (22-26); VBG pCO2 50 mmHg; VBG pH 7.47 (7.32-7.43); VBG pO2 43 mmHg
--- NOTE | 2023-02-18 10:29 | MHC.CLN ---
F/U DISCUSSED AT ROUNDS WITH MD LABS REVIEWED AND COMMUNICATED WITH PHARMACY RECOMMEND INCREASING TPN TODAY TO 60 ML PER HOUR TO PROVIDE 216 G DEXTROSE, 72G PROTEIN, 1022 KCALS SKIN NOW WITH STAGE II PRESSURE INJURIES TO BILATERAL BUTTOCKS REPLETES LYTES NEEDED; CHECK TRIGLYCERIDES
[2023-02-18 11:26] LABS: Venous Blood Gas Refer to POC result
--- NOTE | 2023-02-18 12:59 | HO.RADPN ---
RADIOLOGY Narrative Narrative: Old cholecystostomy tube injected with contrast and is outside the gall bladder. New 6.3 Fr gall bladder drain placed. 90 mL bilous fluid removed. Specimen sent for culture. Do not flush or remove old drain.
[2023-02-18 13:17] LABS: Glucose, Whole Blood 168 mg/dL (60-115)
[2023-02-18] MEDS: Potassium Chloride/H20 40 MEQ/100 ML PIGGYBACK 100 MEQ IV (13:43)
[2023-02-18 14:05] LABS: Anion Gap 16 (12-20); Blood Urea Nitrogen 46 mg/dL (9-16); Calcium 9.2 mg/dL (8.4-10.2); Carbon Dioxide 34 mmol/L (22-29); Chloride 109 mmol/L (96-108); Creatinine Clr Calc Pharmacy 40.9; Estimated Glomerular Filt Rate 30; Glucose Random 185 mg/dL (60-115); Magnesium 2.1 mg/dL (1.6-2.6); Phosphorus 3.7 mg/dL (2.7-4.5); Potassium 3.1 mmol/L (3.3-5.1); Sodium 156 mmol/L (135-145)
[2023-02-18 14:19] LABS: VBG Base Excess 10.6 mmol/L; VBG HCO3 37 mmol/L (22-26); VBG pCO2 57 mmHg; VBG pH 7.41 (7.32-7.43); VBG pO2 47 mmHg
[2023-02-18] MEDS: Calcium Chloride 1 GM/10 ML SYRINGE IVPUSH (14:19)
[2023-02-18 14:33] LABS: MANUAL DIFF FLAG NO
[2023-02-18 14:35] LABS: Basophils Percent Auto 0.2 % (0-2); Eosinophils Percent Auto 0.1 % (0-4); Hematocrit 36.8 % (42.0-52.0); Hemoglobin 11.3 g/dl (14.0-18.0); Imm Gran Abs Auto 0.21 X10*3/uL (0.00-0.03); Imm Gran Pct Auto 2.3 % (0.0-0.4); Lymphocytes Absolute Auto 0.9 X10*3/uL (1.2-4.9); Lymphocytes Percent Auto 9.1 % (20-40); Mean Corpuscular HGB Conc 30.7 g/dl (31.0-36.0); Mean Corpuscular Hemoglobin 30.1 pg (27.0-33.0); Mean Corpuscular Volume 97.9 fL (80.0-98.0); Mean Platelet Volume 10.5 fL (9.4-12.4); Monocytes Absolute Auto 0.3 X10*3/uL (0.1-1.2); Monocytes Percent Auto 3.2 % (2-11); NRBC Pct Auto 0.2 /100WBC (0.0-0.2); Neutrophils Absolute Auto 7.9 x10*3/uL (2.0-8.3); Neutrophils Percent Auto 85.1 % (45-73); Platelet Count 174 X10*3/uL (160-400); Red Blood Count 3.76 X10*6/uL (4.60-5.80); Red Cell Distribution Width 18.4 % (11.0-16.0); White Blood Count 9.3 X10*3/uL (4.8-10.8)
[2023-02-18 14:45] LABS: Lactic Acid 1.6 mmol/L (0.5-2.0)
[2023-02-18 15:10] LABS: TSH reflex Free T4 5.46 uIU/mL (0.32-4.0)
[2023-02-18 16:12] LABS: B Type Natriuretic Peptide 177 pg/mL (<100)
--- NOTE | 2023-02-18 17:25 | PM.CNCAR ---
History of Present Illness History of Present Illness Date of Service: 02/18/23 Requesting physician: Danae Hartman Consult reason: other (Cardiac arrhythmia, CHF) Chief complaint: ABD PAIN, VOMITING Narrative: I was consulted to see Rich in cardiology consultation today due to some respiratory distress and noted slowing in his heart rate, concern for AV block. History was mostly obtained from the chart and the nurse. Patient admitted on December 12 with nausea vomiting and diarrhea and noted to have acute cholecystitis seen by surgery and initially managed conservatively and subsequently patient score does worsen with sepsis with elevated lactic acid levels hypotension, acute kidney injury leading to fluid resuscitation. Since that time patient was then transferred to ICU percutaneous drain was then performed for his acute cholecystitis and managed with IV antibiotics fluids. Patient subsequently continue to worsening renal function was evaluated by Nephrology was started on vasopressors in the ICD due to hypertension and subsequently managed. Patient's about 6 L fluid overloaded, has been having episodes of respiratory distress suspected to be due to pulmonary edema. Patient is currently using BiPAP over the last few days has had slowly deteriorating mental status. Also noted is slowly elevated sodium levels as well as hypokalemia although he has been diuresing. Hyper natremia has been if to be due to fluid overload in the setting of ATN and now diuresis. Being followed by Nephrology you recommended D5W hydration to improve hyponatremia with gentle diuresis. Patient today on the monitor was noted to have sudden slowing of his heart rate. There was reported respiratory distress with it. Although on the monitor a I am reviewing patient is mostly hypoxemic when he is tachycardia. Noted ST segment depression during that time. During slowing of the heart rate there is no significant AV block noted although there is some episodes of junctional beats and some ectopic atrial beats. There is no significant profound bradycardia noted. Patient currently oxygenating well on CPAP therapy at 99%. Blood pressure is stable at 110 systolic. Creatinine is gradually improved although hyponatremia as worsened Review of Systems Review of Systems: Yes Unobtainable due to mental status PMFSH Past Medical History Medical History Morbid obesity Hypothyroidism Rheumatoid arthritis Chronic kidney disease, stage 3 unspecified Bacteremia Chronic pain syndrome Obstructive sleep apnea (adult) (pediatric) Constipation Esophageal reflux Other chronic pain Acute thromboembolism of deep veins of lower extremity Peripheral vascular disease Retention of urine Rheumatoid arthritis Arthritis of both knees Acute embolism and thrombosis of right femoral vein Weakness Unsteadiness on feet Streptococcus, group b, as the cause of diseases classified elsewhere Primary osteoarthritis, right shoulder H/O gastric ulcer Acute deep vein thrombosis (DVT) Chronic arthritis Pain management Family History Family History Father CAD (coronary artery disease) Diabetes Mother Diabetes Brother Diabetes Surgical History Surgical History H/O esophagogastroduodenoscopy H/O colonoscopy H/O rectal polypectomy History of bilateral cataract extraction Social History Social History Household Members: None Housing: Apartment Do you presently have visiting nurse or other home services: Yes Alcohol intake: never Patient Tobacco Use Status: Never used Tobacco Smoked in Last 30 Days: No e-Cigarette/Vaping Use: Never Used Second Hand Smoke Exposure: No Use of substances other than those prescribed or required for medical reasons: No Currently Displaying Signs/Symptoms of Drug Intoxication Withdrawal: No Have you been hit, kicked, punched, or otherwise hurt by someone within the past year? If so, by whom?: No Do you feel safe in your current relationship?: No Is there a partner from a previous relationship who is making you feel unsafe now?: No Are you made to feel afraid or neglected: No Advance Directives: No Advance Directives Information Provided: No Do you have thoughts of harming others: None Do you have a plan to hurt others: No Plan Recently lost weight without trying: No How much weight loss: Unsure Eating poorly because of decreased appetite: No Nutrition screen score: 2 Nutrition Risks: No Nutritional Risk Poor oral hygiene: No service: No Current occupational status: unemployed Cognitive needs: Yes (wheel chair) Hearing needs: No Vision needs: Yes (glasses) Meds Allergies Allergy/AdvReac Type Severity Reaction Status Date / Time simvastatin [SIMVASTATIN] Allergy Unknown TOLD NEVER Verified 02/11/23 15:25 TO TAKE, Cramps in legs Gold shot AdvReac Unknown Itching Uncoded 02/04/23 10:33 Active Medications: Current Medications Acetazolamide (Acetazolamide Sodium 500 Mg Vial) 375 mg IVPUSH BID EZIO Last Admin: 02/18/23 07:42 Dose: 375 mg Albuterol/Ipratropium (Albuterol/Iprat 2.5/0.5mg 3 Ml Ampul.Neb) 3 ml INHALE RQ4H WHILE AWAKE [facility] Last Admin: 02/18/23 15:21 Dose: 3 ml Albuterol/Ipratropium (Albuterol/Iprat 2.5/0.5mg 3 Ml Ampul.Neb) 3 ml INHALE RQ4H WHILE AWAKE PRN PRN Reason: Shortness of Breath Last Admin: 02/13/23 04:26 Dose: 3 ml Piperacillin Sod/Tazobactam (Sod 3.375 gm/ Sodium Chloride) 50 mls @ 100 mls/hr IV Q6H [facility] Last Infusion: 02/18/23 15:07 Dose: Infused Daptomycin 850 mg/ Sodium (Chloride) 67 mls @ 134 mls/hr IV Q24H [facility] Last Infusion: 02/17/23 18:50 Dose: Infused Fluconazole (Diflucan) 200 mg in 100 mls @ 100 mls/hr IV Q24H [facility] Stop: 02/19/23 20:59 Last Infusion: 02/17/23 21:19 Dose: Infused Nutrition (Parenteral) (Parenteral Nutrition) 960 mls @ 40 mls/hr IV .Q24H [facility]; Protocol Stop: 02/18/23 20:59 Last Admin: 02/17/23 21:39 Dose: 40 mls/hr Nutrition (Parenteral) (Parenteral Nutrition) 1,440 mls @ 60 mls/hr IV .Q24H [facility]; Protocol Stop: 02/19/23 20:59 Potassium Phosphate (Kphos) 15 mmol in 250 mls @ 62.5 mls/hr IV Q4H [facility] Stop: 02/18/23 22:14 Last Infusion: 02/18/23 16:25 Dose: 0 mls/hr Furosemide 200 mg/ Sodium (Chloride) 100 mls @ 2.5 mls/hr IVCONT .Q24H [facility] Levothyroxine Sodium (Levothyroxine Sodium 100 Mcg/5 Ml Vial) 37.5 mcg IVPUSH DAILY@0600 [facility] Last Admin: 02/18/23 05:59 Dose: 37.5 mcg Nystatin (Nystatin Powder 15 Gm Bottle) 1 appl TOPICAL TID [facility]; Protocol Last Admin: 02/18/23 14:32 Dose: 1 appl Ondansetron HCl (Ondansetron Hcl 4 Mg/2 Ml Vial) 4 mg IVPUSH QID PRN PRN Reason: Nausea Last Admin: 02/14/23 05:30 Dose: 4 mg Pharmacy Consult (Consult Rx Parenteral Nutrition Ordering) 1 each MISCELLANE DAILY PRN PRN Reason: Consult order Sodium Chloride (0.9 % Sodium Chloride Flush 3 Ml Syringe) 3 ml IVFLUSH QSHIFT [facility] Last Admin: 02/18/23 16:29 Dose: 3 ml Home Medications Medication Instructions Recorded Confirmed Last Taken Type omeprazole 20 mg capsule,delayed 20 mg PO DAILY@0605/04/20 02/12/23 02/10/23 History release levothyroxine 75 mcg tablet 75 mcg PO DAILY@0602/12/23 02/12/23 02/10/23 History Physical Exam Vital Signs: Vital Signs: Last Vital Signs Temp 96.6 F L 02/18/23 17:00 Pulse 107 H 02/18/23 17:00 Resp 19 02/18/23 17:00 BP 129/80 02/18/23 17:00 Pulse Ox 99 02/18/23 17:00 O2 Del Method CPAP 02/18/23 17:00 O2 Flow Rate 1 02/18/23 14:00 FiO2 28 02/18/23 17:00 Oxygen Flow Rate 30 02/16/23 07:44 BMI result Body Mass Index 48.2 Const: General: ill appearing, patient obtunded and other (On CPAP therapy) Nutritional Appearance: obese Orientation/consciousness: patient obtunded HEENT: Head: Yes normocephalic and Yes atraumatic Neck: Neck: Yes trachea midline, Yes supple and Yes other (Cannot accurately evaluate JVD due to body habitus) Resp: Effort & Inspection: decreased respiratory effort Auscultation: no wheezes and diminished lung sounds Cardio: Rate: tachycardic Rhythm: regular rhythm Heart sounds: S1 normal heart sound present, S2 normal heart sound present, no click, no gallops, no murmurs and no rubs GI: Inspection: Yes obesity Skin: General skin exam: other (Diffuse skin peeling) Neuro: General: patient obtunded and other (Cannot evaluate) Extrem: General: No clubbing, No cyanosis and Yes edema Objective Labs and Meds 02/18/23 14:27 02/18/23 13:41 Lab results: Laboratory Results - last 24 hr 02/17/23 02/18/23 02/18/23 17:51 00:26 04:16 WBC 8.6 RBC 3.55 L Hgb 10.4 L Hct 34.6 L MCV 97.5 MCH 29.3 MCHC 30.1 L RDW 18.3 H Plt Count 147 L MPV 10.3 Immature Gran % (Auto) 1.5 H Neut % (Auto) 84.7 H Lymph % (Auto) 10.0 L [place] % (Auto) 3.6 Eos % (Auto) 0.1 Baso % (Auto) 0.1 Lymph # (Auto) 0.9 L [place] # (Auto) 0.3 Eos # (Auto) 0.0 Baso # (Auto) 0.0 Abs Immat Gran (auto) 0.13 H Absolute Neuts (auto) 7.3 Absolute Nucleated RBC 0.020 H Nucleated RBC % (auto) 0.2 VBG pH VBG pCO2 VBG pO2 VBG HCO3 VBG O2 Saturation VBG Base Excess Sodium 155 H 157 H Potassium 3.8 3.0 L D Chloride 107 108 Carbon Dioxide 29 32 H Anion Gap 23 H 20 BUN 48 H 45 H Creatinine 2.58 H 2.50 H Estim Creat Clear Calc 33.2 35.0 Estimated GFR 24 25 POC Glucose 168 H Random Glucose 157 H 186 H Lactic Acid Calcium 8.9 9.1 Phosphorus 2.5 L Magnesium 2.0 B-Natriuretic Peptide Albumin 3.4 L TSH 02/18/23 02/18/23 02/18/23 04:22 08:25 13:14 WBC RBC Hgb Hct MCV MCH MCHC RDW Plt Count MPV Immature Gran % (Auto) Neut % (Auto) Lymph % (Auto) [place] % (Auto) Eos % (Auto) Baso % (Auto) Lymph # (Auto) [place] # (Auto) Eos # (Auto) Baso # (Auto) Abs Immat Gran (auto) Absolute Neuts (auto) Absolute Nucleated RBC Nucleated RBC % (auto) VBG pH 7.45 H 7.47 H VBG pCO2 50 50 VBG pO2 49 43 VBG HCO3 35 H 36 H VBG O2 Saturation 81.0 74.0 VBG Base Excess 10.2 11.6 Sodium Potassium Chloride Carbon Dioxide Anion Gap BUN Creatinine Estim Creat Clear Calc Estimated GFR POC Glucose 168 H Random Glucose Lactic Acid Calcium Phosphorus Magnesium B-Natriuretic Peptide Albumin TSH 02/18/23 02/18/23 02/18/23 13:41 14:13 14:27 WBC 9.3 RBC 3.76 L Hgb 11.3 L Hct 36.8 L MCV 97.9 MCH 30.1 MCHC 30.7 L RDW 18.4 H Plt Count 174 MPV 10.5 Immature Gran % (Auto) 2.3 H Neut % (Auto) 85.1 H Lymph % (Auto) 9.1 L [place] % (Auto) 3.2 Eos % (Auto) 0.1 Baso % (Auto) 0.2 Lymph # (Auto) 0.9 L [place] # (Auto) 0.3 Eos # (Auto) 0.0 Baso # (Auto) 0.0 Abs Immat Gran (auto) 0.21 H Absolute Neuts (auto) 7.9 Absolute Nucleated RBC 0.020 H Nucleated RBC % (auto) 0.2 VBG pH 7.41 VBG pCO2 57 VBG pO2 47 VBG HCO3 37 H VBG O2 Saturation 76.0 VBG Base Excess 10.6 Sodium 156 H Potassium 3.1 L Chloride 109 H Carbon Dioxide 34 H Anion Gap 16 BUN 46 H Creatinine 2.14 H Estim Creat Clear Calc 40.9 Estimated GFR 30 POC Glucose Random Glucose 185 H Lactic Acid 1.6 Calcium 9.2 Phosphorus 3.7 Magnesium 2.1 B-Natriuretic Peptide Albumin TSH 5.46 H 02/18/23 15:21 WBC RBC Hgb Hct MCV MCH MCHC RDW Plt Count MPV Immature Gran % (Auto) Neut % (Auto) Lymph % (Auto) [place] % (Auto) Eos % (Auto) Baso % (Auto) Lymph # (Auto) [place] # (Auto) Eos # (Auto) Baso # (Auto) Abs Immat Gran (auto) Absolute Neuts (auto) Absolute Nucleated RBC Nucleated RBC % (auto) VBG pH VBG pCO2 VBG pO2 VBG HCO3 VBG O2 Saturation VBG Base Excess Sodium Potassium Chloride Carbon Dioxide Anion Gap BUN Creatinine Estim Creat Clear Calc Estimated GFR POC Glucose Random Glucose Lactic Acid Calcium Phosphorus Magnesium B-Natriuretic Peptide 177 H Albumin TSH EKG shows sinus tachycardia with first-degree AV block with nonspecific ST T wave changes Imaging Radiologist's impression: Impressions Abscess Drainage CT 02/18/23 12:46 IMPRESSION: CT-guided cholecystostomy tube placement. Assessment and Plan (1) Acute hypoxic respiratory failure: Status: Acute Acute hypoxic respiratory failure in this elderly gentleman with multiple comorbidities and risk factors including hypertension, morbid obesity, rheumatoid arthritis with underlying likelihood of obstructive coronary artery disease. He seems to have intermittent episode of hypoxic respiratory failure which to me appears to be related to transient pulmonary edema. Could be ischemic in nature given that some of these episodes appear to be related to sinus tachycardia. Although he has multiple acute abnormalities including significant hypernatremia, hypokalemia, renal insufficiency as well as altered mental status. This probably could be related to hypernatremia. I do not think that his bradycardia is significant or profound enough to cause his acute hypoxic respiratory failure. There is no clear evidence of AV block. Continue full disclosure cardiac telemetry, see below. Continue supportive care. Agree with Nephrology to gently diurese with loop diuretics to improve overall positive balance that has been induced since admission as well as replace free fluid to improve his hypernatremia. Strict intake and output chart needs to be pursued. His repeat echocardiogram although of limited quality does not show any significant drop in his LV ejection fraction. Clinically difficult scenario due to difficulty in evaluating his intracardiac pressures. If this becomes an issue can consider invasive hemodynamic monitoring. If he continues to have episodic episodes of hypoxemic respiratory failure ischemia needs to be in the differential diagnosis and may need further evaluation from that perspective (2) Cardiac arrhythmia: Status: Acute Cardiac arrhythmia noted with slowing of his heart rate with occasional junctional beat and/or ectopic atrial beats. Overall I do not see any evidence of significant AV block. His cardiac arrhythmias could be induced by his electrolyte abnormality and this should be corrected including correction of hypokalemia as well as hypernatremia gently. Will continue to follow with you Procedures Date of Service Date of Service: 02/18/23
[2023-02-18] MEDS: Furosemide 200 MG in 0.9 % Sodium Chloride 80 ML IVCONT (17:44)
[2023-02-18 17:46] LABS: Anion Gap 17 (12-20); Blood Urea Nitrogen 47 mg/dL (9-16); Calcium 10.3 mg/dL (8.4-10.2); Carbon Dioxide 33 mmol/L (22-29); Chloride 111 mmol/L (96-108); Creatinine Clr Calc Pharmacy 42.9; Estimated Glomerular Filt Rate 32; Glucose Random 197 mg/dL (60-115); Potassium 3.9 mmol/L (3.3-5.1); Sodium 157 mmol/L (135-145)
[2023-02-18] MEDS: DAPTOmycin 850 MG in 0.9 % Sodium Chloride 50 ML 134 MG IV (17:50)
[2023-02-18 17:59] LABS: Glucose, Whole Blood 173 mg/dL (60-115)
[2023-02-18 18:19] LABS: Free T4 (Free Thyroxine) < 0.42 ng/dL (0.71-1.85)
--- NOTE | 2023-02-18 19:05 | P.PNNP_ITS ---
Subjective Subjective Date of Service: 02/18/23 Principal diagnosis: Acute Cholecystitis and ABEL Interval history: Shante nd examined,events noted Physical Exam 2 Vital Signs: Vital Signs: Last Vital Signs Temp 96.6 F L 02/18/23 17:00 Pulse 108 H 02/18/23 18:58 Resp 26 H 02/18/23 18:58 BP 137/77 02/18/23 18:00 Pulse Ox 98 02/18/23 18:00 O2 Del Method CPAP 02/18/23 18:00 O2 Flow Rate 1 02/18/23 14:00 FiO2 28 02/18/23 18:00 Oxygen Flow Rate 30 02/16/23 07:44 BMI result Body Mass Index 48.2 Const: General: no acute distress, alert, awake, ill appearing, lethargic ( Arousable) and tired appearing Nutritional Appearance: obese O rientation/consciousness: patient oriented x3 and lethargic ( Arousable) L imitations: other limitations (Nonambulatory) HEENT: Other: CPAP in place, facial swelling Head: Yes normocephalic and Yes atraumatic Ears: hearing grossly normal bilaterally Eyes: Sclerae: sclerae normal EOM: EOMs intact bilaterally Neck: Neck: Yes no lymphadenopathy, Yes trachea midline and Yes supple Resp: Other: breathing with assistance of CPAP Effort & Inspection: normal respiratory effort, no audible wheezes, no cough, no respiratory distress and tachypneic Auscultation: clear to auscultation bilaterally, crackles ( Bilateral) and diminished lung sounds Cardio: Rate: tachycardic Rhythm: regular rhythm Heart sounds: no gallops, no murmurs and no rubs GI: Other: obese, distended, tender right upper quadrant Inspection: Yes Abdominal panniculus present and Yes obesity Palpation (GI): Soft to palpation, nontender, no guarding, not rigid and Other GI palpation findings present ( Nontender) Percussion: Yes normal to percussion Auscultation: normal bowel sounds Rectal Exam - Male: Yes deferred Neuro: General: patient oriented x3 Extrem: Other: peripheral edema General: Yes no pedal edema (2+ bilateral), No clubbing, No cyanosis and Yes edema ( 2+ bilateral) Objective Data Labs 02/18/23 14:27 02/18/23 17:01 Labs: Laboratory Results - last 24 hr 02/18/23 02/18/23 02/18/23 00:26 04:16 04:22 WBC 8.6 RBC 3.55 L Hgb 10.4 L Hct 34.6 L MCV 97.5 MCH 29.3 MCHC 30.1 L RDW 18.3 H Plt Count 147 L MPV 10.3 Immature Gran % (Auto) 1.5 H Neut % (Auto) 84.7 H Lymph % (Auto) 10.0 L [place] % (Auto) 3.6 Eos % (Auto) 0.1 Baso % (Auto) 0.1 Lymph # (Auto) 0.9 L [place] # (Auto) 0.3 Eos # (Auto) 0.0 Baso # (Auto) 0.0 Abs Immat Gran (auto) 0.13 H Absolute Neuts (auto) 7.3 Absolute Nucleated RBC 0.020 H Nucleated RBC % (auto) 0.2 VBG pH 7.45 H VBG pCO2 50 VBG pO2 49 VBG HCO3 35 H VBG O2 Saturation 81.0 VBG Base Excess 10.2 Sodium 157 H Potassium 3.0 L D Chloride 108 Carbon Dioxide 32 H Anion Gap 20 BUN 45 H Creatinine 2.50 H Estim Creat Clear Calc 35.0 Estimated GFR 25 POC Glucose 168 H Random Glucose 186 H Lactic Acid Calcium 9.1 Phosphorus 2.5 L Magnesium 2.0 B-Natriuretic Peptide Albumin 3.4 L TSH Free T4 02/18/23 02/18/23 02/18/23 08:25 13:14 13:41 WBC RBC Hgb Hct MCV MCH MCHC RDW Plt Count MPV Immature Gran % (Auto) Neut % (Auto) Lymph % (Auto) [place] % (Auto) Eos % (Auto) Baso % (Auto) Lymph # (Auto) [place] # (Auto) Eos # (Auto) Baso # (Auto) Abs Immat Gran (auto) Absolute Neuts (auto) Absolute Nucleated RBC Nucleated RBC % (auto) VBG pH 7.47 H VBG pCO2 50 VBG pO2 43 VBG HCO3 36 H VBG O2 Saturation 74.0 VBG Base Excess 11.6 Sodium 156 H Potassium 3.1 L Chloride 109 H Carbon Dioxide 34 H Anion Gap 16 BUN 46 H Creatinine 2.14 H Estim Creat Clear Calc 40.9 Estimated GFR 30 POC Glucose 168 H Random Glucose 185 H Lactic Acid Calcium 9.2 Phosphorus 3.7 Magnesium 2.1 B-Natriuretic Peptide Albumin TSH Free T4 02/18/23 02/18/23 02/18/23 14:13 14:27 15:21 WBC 9.3 RBC 3.76 L Hgb 11.3 L Hct 36.8 L MCV 97.9 MCH 30.1 MCHC 30.7 L RDW 18.4 H Plt Count 174 MPV 10.5 Immature Gran % (Auto) 2.3 H Neut % (Auto) 85.1 H Lymph % (Auto) 9.1 L [place] % (Auto) 3.2 Eos % (Auto) 0.1 Baso % (Auto) 0.2 Lymph # (Auto) 0.9 L [place] # (Auto) 0.3 Eos # (Auto) 0.0 Baso # (Auto) 0.0 Abs Immat Gran (auto) 0.21 H Absolute Neuts (auto) 7.9 Absolute Nucleated RBC 0.020 H Nucleated RBC % (auto) 0.2 VBG pH 7.41 VBG pCO2 57 VBG pO2 47 VBG HCO3 37 H VBG O2 Saturation 76.0 VBG Base Excess 10.6 Sodium Potassium Chloride Carbon Dioxide Anion Gap BUN Creatinine Estim Creat Clear Calc Estimated GFR POC Glucose Random Glucose Lactic Acid 1.6 Calcium Phosphorus Magnesium B-Natriuretic Peptide 177 H Albumin TSH 5.46 H Free T4 < 0.42 L 02/18/23 02/18/23 17:01 17:56 WBC RBC Hgb Hct MCV MCH MCHC RDW Plt Count MPV Immature Gran % (Auto) Neut % (Auto) Lymph % (Auto) [place] % (Auto) Eos % (Auto) Baso % (Auto) Lymph # (Auto) [place] # (Auto) Eos # (Auto) Baso # (Auto) Abs Immat Gran (auto) Absolute Neuts (auto) Absolute Nucleated RBC Nucleated RBC % (auto) VBG pH VBG pCO2 VBG pO2 VBG HCO3 VBG O2 Saturation VBG Base Excess Sodium 157 H Potassium 3.9 D Chloride 111 H Carbon Dioxide 33 H Anion Gap 17 BUN 47 H Creatinine 2.04 H Estim Creat Clear Calc 42.9 Estimated GFR 32 POC Glucose 173 H Random Glucose 197 H Lactic Acid Calcium 10.3 H D Phosphorus Magnesium B-Natriuretic Peptide Albumin TSH Free T4 Microbiology Microbiology Results: Microbiology 02/18/23 12:34 Gallbladder Gram Stain - Final 02/13/23 13:30 Gallbladder Fungal Identification - Preliminary No growth to date. 02/12/23 06:07 Blood - Venous Blood Culture - Final No growth after 5 days. 02/12/23 06:07 Blood - Venous Blood Culture - Final No growth after 5 days. 02/11/23 16:24 Blood - Venous Blood Culture - Final No growth after 5 days. 02/13/23 13:30 Gallbladder Gram Stain - Final 02/13/23 13:30 Gallbladder Routine Culture - Final No growth after 2 days 02/11/23 16:15 Blood - Venous Blood Culture - Final Coag negative Staphylococcus Procedures Date of Service Date of Service: 02/18/23 Assessment & Plan Assessment and plan (1) Acute cholecystitis: Status: Acute (2) ABEL (acute kidney injury): Status: Acute (3) Bacteremia: Status: Acute (4) Morbid obesity: Status: Acute (5) Rheumatoid arthritis: Status: Acute Plan 72-year-old gentleman underlying morbid obesity, DVT on Eliquis, obstructive sleep, rheumatoid arthritis, hypothyroidism admitted 02/11/2023 for acute cholecystitis. Course c/b limited surgical options and Septic shock with volume overload. Required Latrice-tube. 1. ABEL, now non-oliguric. 2. Volume overload precipitated by ATN 3. Hypernatremia precipitated by post-ATN diuresis and incr IWL REC: - replace FWD with D5W inaddtion to TPN, avid NTOXINS; noindication for [employer] Will follow with team Time Spent With Patient Time: Total time managing care of this patient today ____ minutes. Progress Note: Quality Stroke Does the patient have a stroke diagnosis?: No
--- NOTE | 2023-02-18 19:11 | PC.NURSE ---
Addendum entered by Malou Null RN 02/18/23 19:15: (note continued) PT remained with pt in CT 11:15-13:00. IR MD, PA and RN present for procedure, see procedure documentation for vital signs. Pt tolerated laying flat with stabe HR and BP, some orthopnea and work of breath. Pt denies pain. Pt returned to ICU room 13:06 with RN and transport. 13:28 pt had episode of bradycardia HR 48. [id number] started as ordered. called to bedside. New orders for Calcium chloride 1G IVP, Kphos 15 mmol. Episodes of bradycardia repeated intermittently for a total of 7 episodes. Pt became symptomatic with desaturation to 70% on oxymask. Pt transitioned to CPAP 14, 28%. EKG obtained, cardiology consult, echo obtained. Episodes of bradycardia terminated and no recurrance 14:16-19:00. 16:45 Lasix gtt started per MD order @ 5mg/hr. NGT to low intermittent suction, output this shift 850 ml dark brown liquid. New abd drain output 100 ml dark brown liquid. Pt repositioned Q2H, high fall precautions in place. Original Note: Assumed care of patient 07:00 09:00 pt provided bed bath, nystatin powder, barrier cream to skin. Dressings changed to b/l buttocks. 10:00 PA from IR came to bedside to assess ASAD drain to gallbladder. Notes difficult to flush. 11:[address] scan for image of abdomen with ASAD drain. IR assessed imaging and determined need for new drain placement to gallbladder. ASAD drain left in place and new gravity drainage system placed distal to 1st drain, RLQ. RN remained with pt in CT room 11:15-
[2023-02-18 19:47] LABS: Anion Gap 16 (12-20); Blood Urea Nitrogen 44 mg/dL (9-16); Calcium 10.1 mg/dL (8.4-10.2); Carbon Dioxide 34 mmol/L (22-29); Chloride 112 mmol/L (96-108); Creatinine Clr Calc Pharmacy 41.2; Estimated Glomerular Filt Rate 31; Glucose Random 220 mg/dL (60-115); Phosphorus 4.6 mg/dL (2.7-4.5); Potassium 3.6 mmol/L (3.3-5.1); Sodium 158 mmol/L (135-145)
[2023-02-18] MEDS: Fluconazole in NaCl,Iso-Osm 200 MG/100 ML PIGGYBACK 100 MG IV (20:16)
[2023-02-18] MEDS: Dextrose 5 % 1,000 ML 100 ML IVCONT (20:39)
[2023-02-18] MEDS: Parenteral Nutrition 1,440 ML 60 ML IV (21:06)
[2023-02-19] VITALS (30 sets, daily range): BP systolic 96–131; BP diastolic 55–104; PULSE 69–100; RESP 14–24; TEMP 36–36.6; O2SAT 91–100; BMI 46.8
[2023-02-19 01:09] LABS: Anion Gap 19 (12-20); Blood Urea Nitrogen 43 mg/dL (9-16); Calcium 9.5 mg/dL (8.4-10.2); Carbon Dioxide 32 mmol/L (22-29); Chloride 110 mmol/L (96-108); Creatinine Clr Calc Pharmacy 43.1; Estimated Glomerular Filt Rate 32; Glucose Random 240 mg/dL (60-115); Phosphorus 4.9 mg/dL (2.7-4.5); Potassium 3.5 mmol/L (3.3-5.1); Sodium 157 mmol/L (135-145)
[2023-02-19] MEDS: Piperacillin Sodium/Tazobactam 3.375 GM in 0.9 % Sodium Chloride 50 ML IV ×4 (03:13→22:05)
[2023-02-19 04:51] LABS: VBG Base Excess 12.1 mmol/L; VBG HCO3 37 mmol/L (22-26); VBG pCO2 53 mmHg; VBG pH 7.45 (7.32-7.43); VBG pO2 40 mmHg
[2023-02-19 04:52] LABS: Venous Blood Gas Refer to POC result
[2023-02-19 05:06] LABS: Hematocrit 35.7 % (42.0-52.0); Hemoglobin 11.1 g/dl (14.0-18.0); Mean Corpuscular HGB Conc 31.1 g/dl (31.0-36.0); Mean Corpuscular Hemoglobin 30.6 pg (27.0-33.0); Mean Corpuscular Volume 98.3 fL (80.0-98.0); Mean Platelet Volume 10.6 fL (9.4-12.4); NRBC Pct Auto 0.3 /100WBC (0.0-0.2); Platelet Count 187 X10*3/uL (160-400); Red Blood Count 3.63 X10*6/uL (4.60-5.80); Red Cell Distribution Width 18.5 % (11.0-16.0); White Blood Count 10.3 X10*3/uL (4.8-10.8)
[2023-02-19 05:24] LABS: Alanine Aminotransferase 21 U/L (0-40); Albumin Level 3.3 g/dL (3.5-5.0); Alkaline Phosphatase 122 U/L (39-117); Anion Gap 16 (12-20); Aspartate Amino Transferase 20 U/L (5-37); Bilirubin Total 0.5 mg/dL (0.0-1.0); Blood Urea Nitrogen 44 mg/dL (9-16); Calcium 9.2 mg/dL (8.4-10.2); Carbon Dioxide 35 mmol/L (22-29); Chloride 107 mmol/L (96-108); Creatinine Clr Calc Pharmacy 49.4; Estimated Glomerular Filt Rate 39; Glucose Random 184 mg/dL (60-115); Magnesium 1.9 mg/dL (1.6-2.6); Phosphorus 4.1 mg/dL (2.7-4.5); Potassium 3.2 mmol/L (3.3-5.1); Sodium 155 mmol/L (135-145); Total Protein 6.2 g/dL (6.5-8.0)
[2023-02-19] MEDS: Dextrose 5 % 1,000 ML 100 ML IVCONT ×2 (05:29→16:35)
[2023-02-19] MEDS: Levothyroxine Sodium 100 MCG/5 ML VIAL 37.5 MCG IVPUSH (05:32)
[2023-02-19] MEDS: Potassium Chloride/H20 40 MEQ/100 ML PIGGYBACK 100 MEQ IV ×2 (05:39→21:02)
[2023-02-19 05:40] LABS: Atypical Lymph Absolute Manual 0.1 x10*3/uL; Atypical Lymphs Percent Manual 1 % (0-6); Band Neutrophils Percent 4 % (3-5); Eosinophils Absolute Manual 0.2 X10*3/uL (0.0-0.4); Eosinophils Percent Manual 2 % (0-4); Lymphocytes Absolute Manual 1.1 X10*3/uL (1.2-4.9); Lymphocytes Percent Manual 11 % (20-40); Macrocytosis 1+ (5-14) /OIF; Monocytes Absolute Manual 0.2 X10*3/uL (0.1-1.2); Monocytes Percent Manual 2 % (2-11); Neutrophils Absolute Manual 8.7 X10*3/uL (2.0-8.3); Neutrophils Percent Manual 80 % (45-73); RBC Morphology NOTED
[2023-02-19 05:41] LABS: Basophilic Stippling 1+ (0-2) /OIF; Large Platelet PRESENT; Platelet Estimate SLIGHTLY DECREASED (NORMAL); Platelet Morphology Comment NORMAL; Polychromasia 1+ (0-2) /OIF; Smudge Cells PRESENT
[2023-02-19] MEDS: Albuterol/Iprat 2.5/0.5MG 3 ML AMPUL.NEB INHALE ×4 (07:38→19:46)
--- NOTE | 2023-02-19 08:05 | P.PNCC_ITS ---
Subjective Subjective Date of Service: 02/19/23 Interval History: no significant overnight events Critical Care Time (minutes): 90 Physical Exam 2 Vital Signs: Vital Signs: Last Vital Signs Temp 97.1 F 02/19/23 04:00 Pulse 78 02/19/23 07:38 Resp 15 02/19/23 07:38 BP 112/65 02/19/23 07:00 Pulse Ox 98 02/19/23 07:00 O2 Del Method CPAP 02/19/23 07:00 O2 Flow Rate 1 02/18/23 14:00 FiO2 28 02/19/23 07:00 Oxygen Flow Rate 30 02/16/23 07:44 BMI result Body Mass Index 46.8 Const: Other: morbidly obese General: no acute distress HEENT: Head: Yes normal to inspection, Yes normocephalic and Yes atraumatic Eyes: General: appearance normal, both eyes and all related structures Neck: Neck: Yes normal visual inspection, Yes no meningeal signs and Yes supple Resp: Other: decreased breath sounds throughout Cardio: Rate: regular rate Rhythm: regular rhythm GI: Other: 2 appreciable ASAD drains in RUQ, clean, d ry, intact Inspection: Yes normal to inspection, No Abdominal wall edema and No distended Palpation (GI): Soft to palpation, not firm, nontender, no guarding and not rigid : Male General Exam: Yes normal external exam Skin: Other: some appreciable erythema groin, bilateral thighs Neuro: Other: wakes to verbal stimulus; follows commands General: no meningeal signs Extrem: Other: appreciable non-pitting edema to bilateral thighs Psych: Appearance: grossly normal Objective Data Labs 02/19/23 04:42 02/19/23 04:42 Labs: Laboratory Results - last 24 hr 02/18/23 02/18/23 02/18/23 08:25 13:14 13:41 WBC RBC Hgb Hct MCV MCH MCHC RDW Plt Count MPV Immature Gran % (Auto) Neut % (Auto) Lymph % (Auto) [place] % (Auto) Eos % (Auto) Baso % (Auto) Lymph # (Auto) [place] # (Auto) Eos # (Auto) Baso # (Auto) Abs Immat Gran (auto) Absolute Neuts (auto) Absolute Nucleated RBC Nucleated RBC % (auto) Neutrophils % (Manual) Band Neutrophils % Lymphocytes % (Manual) Atypical Lymphs % (Man) Monocytes % (Manual) Eosinophils % (Manual) Abs Neuts (Manual) Lymphocytes # (Manual) Atyp Lymphs # (Manual) Monocytes # (Manual) Eosinophils # (Manual) Smudge Cells Platelet Estimate Large Platelets Plt Morphology Comment RBC Morphology Polychromasia Basophilic Stippling Macrocytosis VBG pH 7.47 H VBG pCO2 50 VBG pO2 43 VBG HCO3 36 H VBG O2 Saturation 74.0 VBG Base Excess 11.6 Sodium 156 H Potassium 3.1 L Chloride 109 H Carbon Dioxide 34 H Anion Gap 16 BUN 46 H Creatinine 2.14 H Estim Creat Clear Calc 40.9 Estimated GFR 30 POC Glucose 168 H Random Glucose 185 H Lactic Acid Calcium 9.2 Phosphorus 3.7 Magnesium 2.1 Total Bilirubin AST ALT Alkaline Phosphatase B-Natriuretic Peptide Total Protein Albumin TSH Free T4 02/18/23 02/18/23 02/18/23 14:13 14:27 15:21 WBC 9.3 RBC 3.76 L Hgb 11.3 L Hct 36.8 L MCV 97.9 MCH 30.1 MCHC 30.7 L RDW 18.4 H Plt Count 174 MPV 10.5 Immature Gran % (Auto) 2.3 H Neut % (Auto) 85.1 H Lymph % (Auto) 9.1 L [place] % (Auto) 3.2 Eos % (Auto) 0.1 Baso % (Auto) 0.2 Lymph # (Auto) 0.9 L [place] # (Auto) 0.3 Eos # (Auto) 0.0 Baso # (Auto) 0.0 Abs Immat Gran (auto) 0.21 H Absolute Neuts (auto) 7.9 Absolute Nucleated RBC 0.020 H Nucleated RBC % (auto) 0.2 Neutrophils % (Manual) Band Neutrophils % Lymphocytes % (Manual) Atypical Lymphs % (Man) Monocytes % (Manual) Eosinophils % (Manual) Abs Neuts (Manual) Lymphocytes # (Manual) Atyp Lymphs # (Manual) Monocytes # (Manual) Eosinophils # (Manual) Smudge Cells Platelet Estimate Large Platelets Plt Morphology Comment RBC Morphology Polychromasia Basophilic Stippling Macrocytosis VBG pH 7.41 VBG pCO2 57 VBG pO2 47 VBG HCO3 37 H VBG O2 Saturation 76.0 VBG Base Excess 10.6 Sodium Potassium Chloride Carbon Dioxide Anion Gap BUN Creatinine Estim Creat Clear Calc Estimated GFR POC Glucose Random Glucose Lactic Acid 1.6 Calcium Phosphorus Magnesium Total Bilirubin AST ALT Alkaline Phosphatase B-Natriuretic Peptide 177 H Total Protein Albumin TSH 5.46 H Free T4 < 0.42 L 02/18/23 02/18/23 02/18/23 17:01 17:56 19:12 WBC RBC Hgb Hct MCV MCH MCHC RDW Plt Count MPV Immature Gran % (Auto) Neut % (Auto) Lymph % (Auto) [place] % (Auto) Eos % (Auto) Baso % (Auto) Lymph # (Auto) [place] # (Auto) Eos # (Auto) Baso # (Auto) Abs Immat Gran (auto) Absolute Neuts (auto) Absolute Nucleated RBC Nucleated RBC % (auto) Neutrophils % (Manual) Band Neutrophils % Lymphocytes % (Manual) Atypical Lymphs % (Man) Monocytes % (Manual) Eosinophils % (Manual) Abs Neuts (Manual) Lymphocytes # (Manual) Atyp Lymphs # (Manual) Monocytes # (Manual) Eosinophils # (Manual) Smudge Cells Platelet Estimate Large Platelets Plt Morphology Comment RBC Morphology Polychromasia Basophilic Stippling Macrocytosis VBG pH VBG pCO2 VBG pO2 VBG HCO3 VBG O2 Saturation VBG Base Excess Sodium 157 H 158 H Potassium 3.9 D 3.6 Chloride 111 H 112 H Carbon Dioxide 33 H 34 H Anion Gap 17 16 BUN 47 H 44 H Creatinine 2.04 H 2.12 H Estim Creat Clear Calc 42.9 41.2 Estimated GFR 32 31 POC Glucose 173 H Random Glucose 197 H 220 H Lactic Acid Calcium 10.3 H D 10.1 Phosphorus 4.6 H Magnesium 2.0 Total Bilirubin AST ALT Alkaline Phosphatase B-Natriuretic Peptide Total Protein Albumin TSH Free T4 02/19/23 02/19/23 02/19/23 00:22 04:42 04:45 WBC 10.3 RBC 3.63 L Hgb 11.1 L Hct 35.7 L MCV 98.3 H MCH 30.6 MCHC 31.1 RDW 18.5 H Plt Count 187 MPV 10.6 Immature Gran % (Auto) Cancelled Neut % (Auto) Cancelled Lymph % (Auto) Cancelled [place] % (Auto) Cancelled Eos % (Auto) Cancelled Baso % (Auto) Cancelled Lymph # (Auto) Cancelled [place] # (Auto) Cancelled Eos # (Auto) Cancelled Baso # (Auto) Cancelled Abs Immat Gran (auto) Cancelled Absolute Neuts (auto) Cancelled Absolute Nucleated RBC 0.030 H Nucleated RBC % (auto) 0.3 H Neutrophils % (Manual) 80 H Band Neutrophils % 4 Lymphocytes % (Manual) 11 L Atypical Lymphs % (Man) 1 Monocytes % (Manual) 2 Eosinophils % (Manual) 2 Abs Neuts (Manual) 8.7 H Lymphocytes # (Manual) 1.1 L Atyp Lymphs # (Manual) 0.1 Monocytes # (Manual) 0.2 Eosinophils # (Manual) 0.2 Smudge Cells PRESENT Platelet Estimate SLIGHTLY DECREASED Large Platelets PRESENT Plt Morphology Comment NORMAL RBC Morphology NOTED Polychromasia 1+ (0-2) Basophilic Stippling 1+ (0-2) Macrocytosis 1+ (5-14) VBG pH 7.45 H VBG pCO2 53 VBG pO2 40 VBG HCO3 37 H VBG O2 Saturation 67.0 VBG Base Excess 12.1 Sodium 157 H 155 H Potassium 3.5 3.2 L Chloride 110 H 107 Carbon Dioxide 32 H 35 H Anion Gap 19 16 BUN 43 H 44 H Creatinine 2.03 H 1.74 H Estim Creat Clear Calc 43.1 49.4 Estimated GFR 32 39 POC Glucose Random Glucose 240 H 184 H Lactic Acid Calcium 9.5 9.2 Phosphorus 4.9 H 4.1 Magnesium 2.0 1.9 Total Bilirubin 0.5 AST 20 ALT 21 Alkaline Phosphatase 122 H B-Natriuretic Peptide Total Protein 6.2 L Albumin 3.3 L TSH Free T4 Microbiology Microbiology Results: Microbiology 02/18/23 12:34 Gallbladder Gram Stain - Final 02/13/23 13:30 Gallbladder Fungal Identification - Preliminary No growth to date. 02/12/23 06:07 Blood - Venous Blood Culture - Final No growth after 5 days. 02/12/23 06:07 Blood - Venous Blood Culture - Final No growth after 5 days. 02/11/23 16:24 Blood - Venous Blood Culture - Final No growth after 5 days. 02/13/23 13:30 Gallbladder Gram Stain - Final 02/13/23 13:30 Gallbladder Routine Culture - Final No growth after 2 days 02/11/23 16:15 Blood - Venous Blood Culture - Final Coag negative Staphylococcus Progress Note: A&P Assessment and plan (1) ABEL (acute kidney injury): Status: Acute (2) Acute respiratory failure: Status: Acute (3) Cholecystitis: Status: Acute Plan Patient is a 72 Y M with morbid obesity, c/b MICHAEL, rheumatoid arthritis, and prior DVT on apixaban, hypothyroidism p/w acute cholecystitis on 02/11, c/b septic shock, s/p cholecystostomy on 02/13; course c/b pulmonary edema, ileus N: no acute issues CV: septic shock, resolved R: acute hypoxic respiratory failure d/t pulmonary edema; wean oxygen support as tolerated GI: acute cholecystitis, s/p cholecystostomy x2; TPN : non-oligouric ABEL; volume overload; to continue diuresis; to monitor electrolytes very closely in setting of diuresis; hypernatremia, on D5W gtt H: no acute issues; to hold anticoagulation for any procedural planning ID: acute cholecystitis, c/b septic shock, s/p cholecystostmy; cholecystostmy found to be malpositioned, 2nd cholecystostomy placed, appreciate IR recommendations; continue zosyn, fluconazole E: no acute issues P: no acute issues Quality Stroke Does the patient have a stroke diagnosis?: No VTE Prior VTE?: Yes VTE Risk Level:: Surgical - high VTE Device Contraindication: N/A - Device Ordered VTE Drug Contraindication: Treatment Not Tolerated
[2023-02-19 08:33] LABS: VBG Base Excess 8.7 mmol/L; VBG HCO3 30 mmol/L (22-26); VBG pCO2 33 mmHg; VBG pH 7.57 (7.32-7.43); VBG pO2 236 mmHg
[2023-02-19] MEDS: Nystatin Powder 15 GM BOTTLE 1 APPL TOPICAL ×3 (08:33→22:00)
[2023-02-19] MEDS: acetaZOLAMIDE sodium 500 MG VIAL 375 MG IVPUSH ×2 (08:33→21:00)
[2023-02-19] MEDS: 0.9 % Sodium Chloride Flush 3 ML SYRINGE IVFLUSH ×4 (08:33→23:35)
--- NOTE | 2023-02-19 09:57 | MHC.CLN ---
F/U DISCUSSED AT ROUNDS WITH MD LABS REVIEWED AND COMMUNICATED WITH PHARMACY RECOMMEND INCREASING TPN TODAY TO 83.33 ML PER HOUR TO PROVIDE 300G DEXTROSE, 100G PROTEIN (1.5g/kg), 1420 KCALS SKIN NOW WITH STAGE II PRESSURE INJURIES TO BILATERAL BUTTOCKS-TPN WILL PROMOTE WOUND HEALING REPLETES LYTES NEEDED; CHECK TRIGLYCERIDES
--- NOTE | 2023-02-19 10:09 | PM.PNCARD ---
Subjective Subjective Date of Service: 02/19/23 Principal diagnosis: Acute Cholecystitis and ABEL Interval history: Rich has improved from oxygen perspective. Currently not using CPAP on oxygen and his respiratory status improved. No significant bradycardia or tachycardia. Has diuresed about 1700 cc over night. Sodium is improved slightly. His mental status has improved slightly. Hemodynamically stable. Creatinine is down trending Review of Systems Review of Systems Yes Unobtainable due to mental status Physical Exam Vital Signs: Last Vital Signs Temp 97.0 F 02/19/23 08:00 Pulse 93 02/19/23 09:00 Resp 22 H 02/19/23 09:00 BP 112/65 02/19/23 09:00 Pulse Ox 96 02/19/23 09:00 O2 Del Method CPAP 02/19/23 08:00 O2 Flow Rate 1 02/18/23 14:00 FiO2 28 02/19/23 08:00 Oxygen Flow Rate 30 02/16/23 07:44 BMI result Body Mass Index 46.8 Const General: ill appearing, patient obtunded and other (On CPAP therapy) Nutritional Appearance: obese Orientation/consciousness: patient obtunded HEENT Head: Yes normocephalic and Yes atraumatic Neck Neck: Yes trachea midline, Yes supple and Yes other (Cannot accurately evaluate JVD due to body habitus) Resp Effort & Inspection: decreased respiratory effort Auscultation: no wheezes and diminished lung sounds Cardio Rate: tachycardic Rhythm: regular rhythm Heart sounds: S1 normal heart sound present, S2 normal heart sound present, no click, no gallops, no murmurs and no rubs GI Inspection: Yes obesity Skin General skin exam: other (Diffuse skin peeling) Neuro General: patient obtunded and other (Cannot evaluate) Extrem General: No clubbing, No cyanosis and Yes edema Objective Labs and Meds 02/19/23 04:42 02/19/23 04:42 Lab results: Laboratory Results - last 24 hr 02/18/23 02/18/23 02/18/23 13:14 13:41 14:13 WBC RBC Hgb Hct MCV MCH MCHC RDW Plt Count MPV Immature Gran % (Auto) Neut % (Auto) Lymph % (Auto) [place] % (Auto) Eos % (Auto) Baso % (Auto) Lymph # (Auto) [place] # (Auto) Eos # (Auto) Baso # (Auto) Abs Immat Gran (auto) Absolute Neuts (auto) Absolute Nucleated RBC Nucleated RBC % (auto) Neutrophils % (Manual) Band Neutrophils % Lymphocytes % (Manual) Atypical Lymphs % (Man) Monocytes % (Manual) Eosinophils % (Manual) Abs Neuts (Manual) Lymphocytes # (Manual) Atyp Lymphs # (Manual) Monocytes # (Manual) Eosinophils # (Manual) Smudge Cells Platelet Estimate Large Platelets Plt Morphology Comment RBC Morphology Polychromasia Basophilic Stippling Macrocytosis VBG pH 7.41 VBG pCO2 57 VBG pO2 47 VBG HCO3 37 H VBG O2 Saturation 76.0 VBG Base Excess 10.6 Sodium 156 H Potassium 3.1 L Chloride 109 H Carbon Dioxide 34 H Anion Gap 16 BUN 46 H Creatinine 2.14 H Estim Creat Clear Calc 40.9 Estimated GFR 30 POC Glucose 168 H Random Glucose 185 H Lactic Acid Calcium 9.2 Phosphorus 3.7 Magnesium 2.1 Total Bilirubin AST ALT Alkaline Phosphatase B-Natriuretic Peptide Total Protein Albumin TSH Free T4 02/18/23 02/18/23 02/18/23 14:27 15:21 17:01 WBC 9.3 RBC 3.76 L Hgb 11.3 L Hct 36.8 L MCV 97.9 MCH 30.1 MCHC 30.7 L RDW 18.4 H Plt Count 174 MPV 10.5 Immature Gran % (Auto) 2.3 H Neut % (Auto) 85.1 H Lymph % (Auto) 9.1 L [place] % (Auto) 3.2 Eos % (Auto) 0.1 Baso % (Auto) 0.2 Lymph # (Auto) 0.9 L [place] # (Auto) 0.3 Eos # (Auto) 0.0 Baso # (Auto) 0.0 Abs Immat Gran (auto) 0.21 H Absolute Neuts (auto) 7.9 Absolute Nucleated RBC 0.020 H Nucleated RBC % (auto) 0.2 Neutrophils % (Manual) Band Neutrophils % Lymphocytes % (Manual) Atypical Lymphs % (Man) Monocytes % (Manual) Eosinophils % (Manual) Abs Neuts (Manual) Lymphocytes # (Manual) Atyp Lymphs # (Manual) Monocytes # (Manual) Eosinophils # (Manual) Smudge Cells Platelet Estimate Large Platelets Plt Morphology Comment RBC Morphology Polychromasia Basophilic Stippling Macrocytosis VBG pH VBG pCO2 VBG pO2 VBG HCO3 VBG O2 Saturation VBG Base Excess Sodium 157 H Potassium 3.9 D Chloride 111 H Carbon Dioxide 33 H Anion Gap 17 BUN 47 H Creatinine 2.04 H Estim Creat Clear Calc 42.9 Estimated GFR 32 POC Glucose Random Glucose 197 H Lactic Acid 1.6 Calcium 10.3 H D Phosphorus Magnesium Total Bilirubin AST ALT Alkaline Phosphatase B-Natriuretic Peptide 177 H Total Protein Albumin TSH 5.46 H Free T4 < 0.42 L 02/18/23 02/18/23 02/18/23 17:15 17:56 19:12 WBC RBC Hgb Hct MCV MCH MCHC RDW Plt Count MPV Immature Gran % (Auto) Neut % (Auto) Lymph % (Auto) [place] % (Auto) Eos % (Auto) Baso % (Auto) Lymph # (Auto) [place] # (Auto) Eos # (Auto) Baso # (Auto) Abs Immat Gran (auto) Absolute Neuts (auto) Absolute Nucleated RBC Nucleated RBC % (auto) Neutrophils % (Manual) Band Neutrophils % Lymphocytes % (Manual) Atypical Lymphs % (Man) Monocytes % (Manual) Eosinophils % (Manual) Abs Neuts (Manual) Lymphocytes # (Manual) Atyp Lymphs # (Manual) Monocytes # (Manual) Eosinophils # (Manual) Smudge Cells Platelet Estimate Large Platelets Plt Morphology Comment RBC Morphology Polychromasia Basophilic Stippling Macrocytosis VBG pH 7.57 H VBG pCO2 33 VBG pO2 236 VBG HCO3 30 H VBG O2 Saturation 100.0 VBG Base Excess 8.7 Sodium 158 H Potassium 3.6 Chloride 112 H Carbon Dioxide 34 H Anion Gap 16 BUN 44 H Creatinine 2.12 H Estim Creat Clear Calc 41.2 Estimated GFR 31 POC Glucose 173 H Random Glucose 220 H Lactic Acid Calcium 10.1 Phosphorus 4.6 H Magnesium 2.0 Total Bilirubin AST ALT Alkaline Phosphatase B-Natriuretic Peptide Total Protein Albumin TSH Free T4 02/19/23 02/19/23 02/19/23 00:22 04:42 04:45 WBC 10.3 RBC 3.63 L Hgb 11.1 L Hct 35.7 L MCV 98.3 H MCH 30.6 MCHC 31.1 RDW 18.5 H Plt Count 187 MPV 10.6 Immature Gran % (Auto) Cancelled Neut % (Auto) Cancelled Lymph % (Auto) Cancelled [place] % (Auto) Cancelled Eos % (Auto) Cancelled Baso % (Auto) Cancelled Lymph # (Auto) Cancelled [place] # (Auto) Cancelled Eos # (Auto) Cancelled Baso # (Auto) Cancelled Abs Immat Gran (auto) Cancelled Absolute Neuts (auto) Cancelled Absolute Nucleated RBC 0.030 H Nucleated RBC % (auto) 0.3 H Neutrophils % (Manual) 80 H Band Neutrophils % 4 Lymphocytes % (Manual) 11 L Atypical Lymphs % (Man) 1 Monocytes % (Manual) 2 Eosinophils % (Manual) 2 Abs Neuts (Manual) 8.7 H Lymphocytes # (Manual) 1.1 L Atyp Lymphs # (Manual) 0.1 Monocytes # (Manual) 0.2 Eosinophils # (Manual) 0.2 Smudge Cells PRESENT Platelet Estimate SLIGHTLY DECREASED Large Platelets PRESENT Plt Morphology Comment NORMAL RBC Morphology NOTED Polychromasia 1+ (0-2) Basophilic Stippling 1+ (0-2) Macrocytosis 1+ (5-14) VBG pH 7.45 H VBG pCO2 53 VBG pO2 40 VBG HCO3 37 H VBG O2 Saturation 67.0 VBG Base Excess 12.1 Sodium 157 H 155 H Potassium 3.5 3.2 L Chloride 110 H 107 Carbon Dioxide 32 H 35 H Anion Gap 19 16 BUN 43 H 44 H Creatinine 2.03 H 1.74 H Estim Creat Clear Calc 43.1 49.4 Estimated GFR 32 39 POC Glucose Random Glucose 240 H 184 H Lactic Acid Calcium 9.5 9.2 Phosphorus 4.9 H 4.1 Magnesium 2.0 1.9 Total Bilirubin 0.5 AST 20 ALT 21 Alkaline Phosphatase 122 H B-Natriuretic Peptide Total Protein 6.2 L Albumin 3.3 L TSH Free T4 Imaging Radiologist's impression: Impressions Abscess Drainage CT 02/18/23 12:46 IMPRESSION: CT-guided cholecystostomy tube placement. Progress Note: A&P Assessment and plan (1) Acute respiratory failure: Status: Acute Assessment and Plan: Acute respiratory multi failure but component of congestive heart failure is highly likely. Continue IV diuresis with Lasix. He is gradually improving with lesser oxygen requirement. Continue free fluid replacement for his significant hypernatremia. Strict intake and output chart needs to be pursued. No significant arrhythmias to explain his acute heart failure. Ischemia is still likely. However he has lot of current medical issues that needs to be addressed prior to pursuing any invasive cardiac approach at this point time including his mental status. (2) Cardiac arrhythmia: Status: Acute Assessment and Plan: Cardiac arrhythmias most likely related to electrolyte imbalance. They are gradually improving. He has not had any significant AV block or significant other arrhythmias are concerning at this point time. No further treatment for the same. Continue full disclosure cardiac monitoring. Will continue to follow with you Time Spent With Patient Time: Total time managing care of this patient today ____ minutes. Progress Note: Quality Stroke Does the patient have a stroke diagnosis?: No Procedures Date of Service Date of Service: 02/19/23
[2023-02-19 10:43] LABS: Anion Gap 18 (12-20); Blood Urea Nitrogen 45 mg/dL (9-16); Calcium 8.8 mg/dL (8.4-10.2); Carbon Dioxide 33 mmol/L (22-29); Chloride 105 mmol/L (96-108); Creatinine Clr Calc Pharmacy 52.4; Estimated Glomerular Filt Rate 41; Glucose Random 216 mg/dL (60-115); Phosphorus 3.8 mg/dL (2.7-4.5); Potassium 3.7 mmol/L (3.3-5.1); Sodium 152 mmol/L (135-145); Triglycerides 226 mg/dL (<150)
[2023-02-19 12:14] LABS: Glucose, Whole Blood 157 mg/dL (60-115)
[2023-02-19] MEDS: Insulin Lispro 100 UNIT/ML 3 ML VIAL SUBCUT ×3 (12:29→23:34)
[2023-02-19] MEDS: Albumin Human 25 % 100 ML IV ×2 (12:29→13:42)
--- NOTE | 2023-02-19 12:43 | ECG_ITS ---
Test Reason : change in rtytuym Blood Pressure : / mmHG Vent. Rate : 083 BPM Atrial Rate : 340 BPM P-R Int : 000 ms QRS Dur : 090 ms QT Int : 490 ms P-R-T Axes : 000 -01 -03 degrees QTc Int : 575 ms Atrial flutter with variable A-V block Prolonged QT Nonspecific T wave abnormality Abnormal ECG When compared with ECG of 18-FEB-2023 13:54, Atrial flutter has replaced Sinus rhythm Referred By: Danae Hartman Electronically Signed By:MITCHEL PATTON MD
[2023-02-19] MEDS: Calcium Gluconate/NaCl,Iso-Osm 1 GM/50 ML PLAST..BAG IV (13:11)
[2023-02-19] MEDS: Hydrocortisone Sod Succ/PF 100 MG VIAL IVPUSH ×2 (13:12→20:55)
[2023-02-19 13:31] LABS: Anion Gap 14 (12-20); Blood Urea Nitrogen 45 mg/dL (9-16); Calcium 8.9 mg/dL (8.4-10.2); Carbon Dioxide 36 mmol/L (22-29); Chloride 104 mmol/L (96-108); Creatinine Clr Calc Pharmacy 53.7; Estimated Glomerular Filt Rate 42; Glucose Random 178 mg/dL (60-115); Magnesium 1.9 mg/dL (1.6-2.6); Phosphorus 3.6 mg/dL (2.7-4.5); Potassium 3.4 mmol/L (3.3-5.1); Sodium 151 mmol/L (135-145)
[2023-02-19] MEDS: Levothyroxine Sodium 100 MCG/5 ML VIAL 200 MCG IVPUSH (13:47)
--- NOTE | 2023-02-19 15:48 | HO.WOUND ---
Wound Consult: Follow Up 72yr old [place] [facility] [place] 22:[place] - See progress notes and H&P for detailed history. Request by direct care nursing team to reassess wounds. Arrival to bedside pt is agreeable to assessment and photo documentation. Last note details that the patient repors he had untreated Psoriasis which appeared as dry red scaling rash, however over the course of this hospitalization his tissue has begun to peel in dry flaking layers - not consisent with traditional psoriasis - Etiology remains unknonw to this selling underwriter at this time - I would defer to Providers may consider ID consult and or Dermatology consult if available inpt or follow up outpt at time of discharge. See photos below over all the tissue appears to be improving. 02/12/23 02/19/23 Assessment - Overall tissue improvement - Etiology unknown - not consistent with pressure not consistent with moisture - dry desquamation revealing in many cases intact tissue - some areas of bleeding when dry flake removed revealing partial thickness tissue loss - topical treatment can consist of Ointment based product to donate moisture such as Vaseline applied twice a day. 02/12/23 Bilateral Lower Legs - Venous Dermatitis intact tissue - lotion or Vaseline to be applied to moisturize dry skin. 02/19/23 Left Leg - Etiology unknown - Irregular red pigmentation pattern of intact tissue - defer to Providers - consider ID consult - however skin overall improving - will benefit from donate moisture such as Vaseline applied twice a day. 02/12/23 02/19/23 Overall Improvement to intertriginous areas - continue use of Interdry. 02/12/23 Buttocks 02/19/23 - overall improvement various areas of epidermal tissue loss Bilateral Buttocks Etiology: MASD -IAD (Moisture Associated Skin Damage - Incontinence Associated Dermatitis) - Pt remains incontinent of Thick gelatinous bilious liquid stool approximately twice a day per staff Wound Bed: Not consistent with pressure presentation - irregular shaped red maroon partial thickness wound bed not over bony prominences Drainage / Odor: serosang drainage noted on bed linen and during cleansing Edges: ? Irregular [place] wound: ? red blanchable tissue, dry desquamation noted revealing intact tissue No Induration, No Fluctuance Goals of Treatment: ? Treat buttocks with Triad barrier cream to protect from moisture and friction Recommendations: 1. Turn and Reposition every 2 hours and as needed for patient comfort consider use of wedges available in the storeroom. 2. Off Load all bony prominences with use of pillows, wedges and heel boots. 3. Monitor for incontinence and moisture control - use dry abhishek pads and barrier creams 4. Provide adequate and supplemental nutrition. 5. Consider Bariatric Bed. 6. Skin Folds - Cleanse with routine bathing - apply Antifungal powder per provider order - twice a day. Consider Interdry sheets to translocate moisture away from skin folds - available in Storeroom. 7. Buttocks - Off Load Pressure - Cleanse with PH balance [place] spray, pat dry. ?Apply thin layer of Triad to wound bed - only pat and dab no scrub and rub when soiling occurs. Reapply thin layer PRN after each episode of incontinence. 8. Back and Bilateral Legs - Cleanse with PH balance [place] spray, pat dry. ?Apply thin layer of Vaseline to moisturize dry skin twice daily. Re-consult wound care Nurse for wound deterioration or wound changes.
[2023-02-19 16:16] LABS: Anion Gap 17 (12-20); Blood Urea Nitrogen 46 mg/dL (9-16); Calcium 9.5 mg/dL (8.4-10.2); Carbon Dioxide 35 mmol/L (22-29); Chloride 102 mmol/L (96-108); Creatinine Clr Calc Pharmacy 54.1; Estimated Glomerular Filt Rate 43; Glucose Random 149 mg/dL (60-115); Phosphorus 3.9 mg/dL (2.7-4.5); Potassium 3.7 mmol/L (3.3-5.1); Sodium 150 mmol/L (135-145)
[2023-02-19] MEDS: DAPTOmycin 850 MG in 0.9 % Sodium Chloride 50 ML 134 MG IV (17:07)
[2023-02-19 17:34] LABS: Glucose, Whole Blood 155 mg/dL (60-115)
[2023-02-19 18:07] LABS: Venous Blood Gas Refer to POC result
[2023-02-19 18:08] LABS: VBG Base Excess 13.6 mmol/L; VBG HCO3 39 mmol/L (22-26); VBG pCO2 53 mmHg; VBG pH 7.47 (7.32-7.43); VBG pO2 55 mmHg
[2023-02-19] MEDS: Furosemide 200 MG in 0.9 % Sodium Chloride 80 ML IVCONT (18:25)
--- NOTE | 2023-02-19 18:39 | P.PNNP_ITS ---
Subjective Subjective Date of Service: 02/19/23 Principal diagnosis: Acute Cholecystitis and ABEL Interval history: seen and examined,events noted Physical Exam 2 Vital Signs: Vital Signs: Last Vital Signs Temp 96.9 F 02/19/23 16:00 Pulse 82 02/19/23 18:00 Resp 22 H 02/19/23 18:00 BP 113/55 L 02/19/23 18:00 Pulse Ox 94 02/19/23 18:00 O2 Del Method Oxymask 02/19/23 18:00 O2 Flow Rate 3 02/19/23 18:00 FiO2 28 02/19/23 08:00 Oxygen Flow Rate 30 02/16/23 07:44 BMI result Body Mass Index 46.8 Const: General: no acute distress, alert, awake, ill appearing, lethargic ( Arousable) and tired appearing Nutritional Appearance: obese O rientation/consciousness: patient oriented x3 and lethargic ( Arousable) L imitations: other limitations (Nonambulatory) HEENT: Other: CPAP in place, facial swelling Head: Yes normocephalic and Yes atraumatic Ears: hearing grossly normal bilaterally Eyes: Sclerae: sclerae normal EOM: EOMs intact bilaterally Neck: Neck: Yes no lymphadenopathy, Yes trachea midline and Yes supple Resp: Other: breathing with assistance of CPAP Effort & Inspection: normal respiratory effort, no audible wheezes, no cough, no respiratory distress and tachypneic Auscultation: clear to auscultation bilaterally, crackles ( Bilateral) and diminished lung sounds Cardio: Rate: tachycardic Rhythm: regular rhythm Heart sounds: no gallops, no murmurs and no rubs GI: Other: obese, distended, tender right upper quadrant Inspection: Yes Abdominal panniculus present and Yes obesity Palpation (GI): Soft to palpation, nontender, no guarding, not rigid and Other GI palpation findings present ( Nontender) Percussion: Yes normal to percussion Auscultation: normal bowel sounds Rectal Exam - Male: Yes deferred Neuro: General: patient oriented x3 Extrem: Other: peripheral edema General: Yes no pedal edema (2+ bilateral), No clubbing, No cyanosis and Yes edema ( 2+ bilateral) Objective Data Labs 02/19/23 04:42 02/19/23 15:32 Labs: Laboratory Results - last 24 hr 02/18/23 02/18/23 02/19/23 17:15 19:12 00:22 WBC RBC Hgb Hct MCV MCH MCHC RDW Plt Count MPV Immature Gran % (Auto) Neut % (Auto) Lymph % (Auto) [place] % (Auto) Eos % (Auto) Baso % (Auto) Lymph # (Auto) [place] # (Auto) Eos # (Auto) Baso # (Auto) Abs Immat Gran (auto) Absolute Neuts (auto) Absolute Nucleated RBC Nucleated RBC % (auto) Neutrophils % (Manual) Band Neutrophils % Lymphocytes % (Manual) Atypical Lymphs % (Man) Monocytes % (Manual) Eosinophils % (Manual) Abs Neuts (Manual) Lymphocytes # (Manual) Atyp Lymphs # (Manual) Monocytes # (Manual) Eosinophils # (Manual) Smudge Cells Platelet Estimate Large Platelets Plt Morphology Comment RBC Morphology Polychromasia Basophilic Stippling Macrocytosis VBG pH 7.57 H VBG pCO2 33 VBG pO2 236 VBG HCO3 30 H VBG O2 Saturation 100.0 VBG Base Excess 8.7 Sodium 158 H 157 H Potassium 3.6 3.5 Chloride 112 H 110 H Carbon Dioxide 34 H 32 H Anion Gap 16 19 BUN 44 H 43 H Creatinine 2.12 H 2.03 H Estim Creat Clear Calc 41.2 43.1 Estimated GFR 31 32 POC Glucose Random Glucose 220 H 240 H Calcium 10.1 9.5 Phosphorus 4.6 H 4.9 H Magnesium 2.0 2.0 Total Bilirubin AST ALT Alkaline Phosphatase Total Protein Albumin Triglycerides 02/19/23 02/19/23 02/19/23 04:42 04:45 09:48 WBC 10.3 RBC 3.63 L Hgb 11.1 L Hct 35.7 L MCV 98.3 H MCH 30.6 MCHC 31.1 RDW 18.5 H Plt Count 187 MPV 10.6 Immature Gran % (Auto) Cancelled Neut % (Auto) Cancelled Lymph % (Auto) Cancelled [place] % (Auto) Cancelled Eos % (Auto) Cancelled Baso % (Auto) Cancelled Lymph # (Auto) Cancelled [place] # (Auto) Cancelled Eos # (Auto) Cancelled Baso # (Auto) Cancelled Abs Immat Gran (auto) Cancelled Absolute Neuts (auto) Cancelled Absolute Nucleated RBC 0.030 H Nucleated RBC % (auto) 0.3 H Neutrophils % (Manual) 80 H Band Neutrophils % 4 Lymphocytes % (Manual) 11 L Atypical Lymphs % (Man) 1 Monocytes % (Manual) 2 Eosinophils % (Manual) 2 Abs Neuts (Manual) 8.7 H Lymphocytes # (Manual) 1.1 L Atyp Lymphs # (Manual) 0.1 Monocytes # (Manual) 0.2 Eosinophils # (Manual) 0.2 Smudge Cells PRESENT Platelet Estimate SLIGHTLY DECREASED Large Platelets PRESENT Plt Morphology Comment NORMAL RBC Morphology NOTED Polychromasia 1+ (0-2) Basophilic Stippling 1+ (0-2) Macrocytosis 1+ (5-14) VBG pH 7.45 H VBG pCO2 53 VBG pO2 40 VBG HCO3 37 H VBG O2 Saturation 67.0 VBG Base Excess 12.1 Sodium 155 H 152 H Potassium 3.2 L 3.7 Chloride 107 105 Carbon Dioxide 35 H 33 H Anion Gap 16 18 BUN 44 H 45 H Creatinine 1.74 H 1.64 H Estim Creat Clear Calc 49.4 52.4 Estimated GFR 39 41 POC Glucose Random Glucose 184 H 216 H Calcium 9.2 8.8 Phosphorus 4.1 3.8 Magnesium 1.9 2.0 Total Bilirubin 0.5 AST 20 ALT 21 Alkaline Phosphatase 122 H Total Protein 6.2 L Albumin 3.3 L Triglycerides 226 H 02/19/23 02/19/23 02/19/23 12:11 12:55 15:32 WBC RBC Hgb Hct MCV MCH MCHC RDW Plt Count MPV Immature Gran % (Auto) Neut % (Auto) Lymph % (Auto) [place] % (Auto) Eos % (Auto) Baso % (Auto) Lymph # (Auto) [place] # (Auto) Eos # (Auto) Baso # (Auto) Abs Immat Gran (auto) Absolute Neuts (auto) Absolute Nucleated RBC Nucleated RBC % (auto) Neutrophils % (Manual) Band Neutrophils % Lymphocytes % (Manual) Atypical Lymphs % (Man) Monocytes % (Manual) Eosinophils % (Manual) Abs Neuts (Manual) Lymphocytes # (Manual) Atyp Lymphs # (Manual) Monocytes # (Manual) Eosinophils # (Manual) Smudge Cells Platelet Estimate Large Platelets Plt Morphology Comment RBC Morphology Polychromasia Basophilic Stippling Macrocytosis VBG pH VBG pCO2 VBG pO2 VBG HCO3 VBG O2 Saturation VBG Base Excess Sodium 151 H 150 H Potassium 3.4 3.7 Chloride 104 102 Carbon Dioxide 36 H 35 H Anion Gap 14 17 BUN 45 H 46 H Creatinine 1.60 H 1.59 H Estim Creat Clear Calc 53.7 54.1 Estimated GFR 42 43 POC Glucose 157 H Random Glucose 178 H 149 H Calcium 8.9 9.5 D Phosphorus 3.6 3.9 Magnesium 1.9 2.0 Total Bilirubin AST ALT Alkaline Phosphatase Total Protein Albumin Triglycerides 02/19/23 02/19/23 17:24 18:01 WBC RBC Hgb Hct MCV MCH MCHC RDW Plt Count MPV Immature Gran % (Auto) Neut % (Auto) Lymph % (Auto) [place] % (Auto) Eos % (Auto) Baso % (Auto) Lymph # (Auto) [place] # (Auto) Eos # (Auto) Baso # (Auto) Abs Immat Gran (auto) Absolute Neuts (auto) Absolute Nucleated RBC Nucleated RBC % (auto) Neutrophils % (Manual) Band Neutrophils % Lymphocytes % (Manual) Atypical Lymphs % (Man) Monocytes % (Manual) Eosinophils % (Manual) Abs Neuts (Manual) Lymphocytes # (Manual) Atyp Lymphs # (Manual) Monocytes # (Manual) Eosinophils # (Manual) Smudge Cells Platelet Estimate Large Platelets Plt Morphology Comment RBC Morphology Polychromasia Basophilic Stippling Macrocytosis VBG pH 7.47 H VBG pCO2 53 VBG pO2 55 VBG HCO3 39 H VBG O2 Saturation 87.0 VBG Base Excess 13.6 Sodium Potassium Chloride Carbon Dioxide Anion Gap BUN Creatinine Estim Creat Clear Calc Estimated GFR POC Glucose 155 H Random Glucose Calcium Phosphorus Magnesium Total Bilirubin AST ALT Alkaline Phosphatase Total Protein Albumin Triglycerides Microbiology Microbiology Results: Microbiology 02/18/23 12:34 Gallbladder Gram Stain - Final 02/18/23 12:34 Gallbladder Routine Culture - Preliminary No growth to date. 02/18/23 12:34 Gallbladder Anaerobic Culture - Preliminary No growth to date. 02/13/23 13:30 Gallbladder Fungal Identification - Preliminary No growth to date. 02/12/23 06:07 Blood - Venous Blood Culture - Final No growth after 5 days. 02/12/23 06:07 Blood - Venous Blood Culture - Final No growth after 5 days. 02/11/23 16:24 Blood - Venous Blood Culture - Final No growth after 5 days. 02/13/23 13:30 Gallbladder Gram Stain - Final 02/13/23 13:30 Gallbladder Routine Culture - Final No growth after 2 days 02/11/23 16:15 Blood - Venous Blood Culture - Final Coag negative Staphylococcus Procedures Date of Service Date of Service: 02/19/23 Assessment & Plan Assessment and plan (1) Acute cholecystitis: Status: Acute (2) ABEL (acute kidney injury): Status: Acute (3) Bacteremia: Status: Acute (4) Morbid obesity: Status: Acute (5) Rheumatoid arthritis: Status: Acute Plan 72-year-old gentleman underlying morbid obesity, DVT on Eliquis, obstructive sleep, rheumatoid arthritis, hypothyroidism admitted 02/11/2023 for acute cholecystitis. Course c/b limited surgical options and Septic shock with volume overload. Required Latrice-tube. 1. ABEL, now non-oliguric. 2. Volume overload precipitated by ATN 3. Hypernatremia precipitated by post-ATN diuresis and incr IWL; grad decr SNa REC: - cont replace FWD with D5W in addtion to TPN, avid NTOXINS; no indication for WANT AD SUPERVISOR Will follow with team Time Spent With Patient Time: Total time managing care of this patient today ____ minutes. Progress Note: Quality Stroke Does the patient have a stroke diagnosis?: No
[2023-02-19] MEDS: Fluconazole in NaCl,Iso-Osm 200 MG/100 ML PIGGYBACK 100 MG IV (19:52)
[2023-02-19 20:28] LABS: Anion Gap 17 (12-20); Blood Urea Nitrogen 45 mg/dL (9-16); Carbon Dioxide 33 mmol/L (22-29); Chloride 100 mmol/L (96-108); Creatinine Clr Calc Pharmacy 55.5; Estimated Glomerular Filt Rate 44; Glucose Random 242 mg/dL (60-115); Magnesium 1.9 mg/dL (1.6-2.6); Potassium 3.1 mmol/L (3.3-5.1); Sodium 147 mmol/L (135-145)
[2023-02-19 23:34] LABS: Glucose, Whole Blood 209 mg/dL (60-115)
[2023-02-20] VITALS (39 sets, daily range): BP systolic 86–157; BP diastolic 37–78; PULSE 50–118; RESP 15–27; TEMP 36.2–38.3; O2SAT 83–100; BMI 45.9
--- NOTE | 2023-02-20 | ECG_ITS ---
Test Reason : bradycardia Blood Pressure : / mmHG Vent. Rate : 113 BPM Atrial Rate : 113 BPM P-R Int : 140 ms QRS Dur : 076 ms QT Int : 362 ms P-R-T Axes : 000 015 -16 degrees QTc Int : 496 ms Poor data quality Atrial fibrillation Nonspecific ST and T wave abnormality Abnormal ECG When compared with ECG of 19-FEB-2023 12:42, Atrial fibrillation has replaced aflutter ST now depressed in Inferior leads ST now depressed in Anterolateral leads Referred By: Danae Hartman Electronically Signed By:MITCHEL PATTON MD
[2023-02-20] MEDS: Dextrose 5 % 1,000 ML 100 ML IVCONT ×2 (01:53→11:58)
[2023-02-20] MEDS: Piperacillin Sodium/Tazobactam 3.375 GM in 0.9 % Sodium Chloride 50 ML IV ×4 (02:20→20:09)
--- NOTE | 2023-02-20 03:55 | HO.SKINPHOTO ---
Location: Bridge of nose Category: MDPI Stage: Length: 1cm Width: 1cm Location: Category: Stage: Length: Width: Depth: cm Location: Category: Stage: Length: Width: Depth: cm Location: Category: Stage: Length: Width: Depth: cm Location: Category: Stage: Length: Width: Depth: cm Location: Category: Stage: Length: Width: Depth: cm
[2023-02-20] MEDS: Hydrocortisone Sod Succ/PF 100 MG VIAL IVPUSH (04:49)
[2023-02-20 05:14] LABS: Glucose, Whole Blood 246 mg/dL (60-115)
[2023-02-20] MEDS: Insulin Lispro 100 UNIT/ML 3 ML VIAL SUBCUT (05:16)
[2023-02-20] MEDS: Levothyroxine Sodium 100 MCG/5 ML VIAL IVPUSH (05:16)
[2023-02-20 05:22] LABS: VBG Base Excess 12.7 mmol/L; VBG HCO3 37 mmol/L (22-26); VBG pCO2 46 mmHg; VBG pO2 40 mmHg
[2023-02-20 05:35] LABS: Venous Blood Gas Refer to POC result
[2023-02-20 06:14] LABS: Hematocrit 32.7 % (42.0-52.0); Hemoglobin 10.1 g/dl (14.0-18.0); Mean Corpuscular HGB Conc 30.9 g/dl (31.0-36.0); Mean Platelet Volume 11.5 fL (9.4-12.4); NRBC Pct Auto 0.4 /100WBC (0.0-0.2); Platelet Count 217 X10*3/uL (160-400); Red Blood Count 3.37 X10*6/uL (4.60-5.80); Red Cell Distribution Width 18.1 % (11.0-16.0); White Blood Count 10.8 X10*3/uL (4.8-10.8)
[2023-02-20 06:32] LABS: Albumin Level 3.7 g/dL (3.5-5.0); Anion Gap 18 (12-20); Blood Urea Nitrogen 48 mg/dL (9-16); Calcium 8.9 mg/dL (8.4-10.2); Carbon Dioxide 31 mmol/L (22-29); Chloride 98 mmol/L (96-108); Creatinine Clr Calc Pharmacy 54.2; Estimated Glomerular Filt Rate 43; Glucose Random 228 mg/dL (60-115); Magnesium 1.9 mg/dL (1.6-2.6); Phosphorus 2.8 mg/dL (2.7-4.5); Sodium 144 mmol/L (135-145)
[2023-02-20] MEDS: Albuterol/Iprat 2.5/0.5MG 3 ML AMPUL.NEB INHALE ×4 (07:06→20:06)
[2023-02-20 07:38] LABS: Band Neutrophils Percent 1 % (3-5); Lymphocytes Absolute Manual 0.9 X10*3/uL (1.2-4.9); Lymphocytes Percent Manual 8 % (20-40); Monocytes Absolute Manual 0.3 X10*3/uL (0.1-1.2); Monocytes Percent Manual 3 % (2-11); Neutrophils Absolute Manual 9.6 X10*3/uL (2.0-8.3); Neutrophils Percent Manual 88 % (45-73)
[2023-02-20 07:39] LABS: Hypochromasia 1+ (5-14) /OIF; Macrocytosis 1+ (5-14) /OIF; Platelet Estimate NORMAL (NORMAL); Platelet Morphology Comment NORMAL; Polychromasia 1+ (0-2) /OIF; RBC Morphology NOTED
--- NOTE | 2023-02-20 08:02 | P.PNCC_ITS ---
Subjective Subjective Date of Service: 02/20/23 Interval History: no significant overnight events Critical Care Time (minutes): 60 Physical Exam 2 Vital Signs: Vital Signs: Last Vital Signs Temp 97.5 F 02/20/23 04:00 Pulse 92 02/20/23 07:07 Resp 18 02/20/23 07:07 BP 105/61 02/20/23 07:00 Pulse Ox 100 02/20/23 07:00 O2 Del Method Room Air 02/20/23 07:00 O2 Flow Rate 2 02/19/23 21:00 FiO2 21 02/20/23 04:00 Oxygen Flow Rate 30 02/16/23 07:44 BMI result Body Mass Index 45.9 Const: General: cooperative, comfortable, no acute distress, well developed, alert and awake Orientation/consciousness: oriented to person and oriented to place HEENT: Head: Yes normal to inspection, Yes normocephalic and Yes atraumatic Eyes: General: appearance normal, both eyes and all related structures Neck: Neck: Yes normal visual inspection, Yes no meningeal signs and Yes supple Chest: Chest palpation & inspection: normal inspection of the chest Resp: Other: no appreciable rales, rhonchi, wheezing Cardio: Rate: regular rate Rhythm: regular rhythm GI: Other: 2 ASAD drains RUQ, clean, dry, intact Inspection: Yes normal to inspection, No Abdominal wall edema and No distended Palpation (GI): Soft to palpation, not firm, nontender, no guarding and not rigid Skin: Other: diffuse erythematous rash groin, bilateral thighs; no appreciable induration, fluctuance Neuro: Other: appreciably more alert; answers questions appropriately General: oriented to person, oriented to place, moves all extremities, no meningeal signs and no focal motor deficits Extrem: Other: 1+ pitting edema to bilateral thighs Psych: Appearance: grossly normal Objective Data Labs 02/20/23 05:15 02/20/23 05:15 Labs: Laboratory Results - last 24 hr 02/18/23 02/19/23 02/19/23 17:15 09:48 12:11 WBC RBC Hgb Hct MCV MCH MCHC RDW Plt Count MPV Immature Gran % (Auto) Neut % (Auto) Lymph % (Auto) [place] % (Auto) Eos % (Auto) Baso % (Auto) Lymph # (Auto) [place] # (Auto) Eos # (Auto) Baso # (Auto) Abs Immat Gran (auto) Absolute Neuts (auto) Absolute Nucleated RBC Nucleated RBC % (auto) Neutrophils % (Manual) Band Neutrophils % Lymphocytes % (Manual) Monocytes % (Manual) Abs Neuts (Manual) Lymphocytes # (Manual) Monocytes # (Manual) Platelet Estimate Plt Morphology Comment RBC Morphology Polychromasia Hypochromasia Macrocytosis VBG pH 7.57 H VBG pCO2 33 VBG pO2 236 VBG HCO3 30 H VBG O2 Saturation 100.0 VBG Base Excess 8.7 Sodium 152 H Potassium 3.7 Chloride 105 Carbon Dioxide 33 H Anion Gap 18 BUN 45 H Creatinine 1.64 H Estim Creat Clear Calc 52.4 Estimated GFR 41 POC Glucose 157 H Random Glucose 216 H Calcium 8.8 Phosphorus 3.8 Magnesium 2.0 Albumin Triglycerides 226 H 02/19/23 02/19/23 02/19/23 12:55 15:32 17:24 WBC RBC Hgb Hct MCV MCH MCHC RDW Plt Count MPV Immature Gran % (Auto) Neut % (Auto) Lymph % (Auto) [place] % (Auto) Eos % (Auto) Baso % (Auto) Lymph # (Auto) [place] # (Auto) Eos # (Auto) Baso # (Auto) Abs Immat Gran (auto) Absolute Neuts (auto) Absolute Nucleated RBC Nucleated RBC % (auto) Neutrophils % (Manual) Band Neutrophils % Lymphocytes % (Manual) Monocytes % (Manual) Abs Neuts (Manual) Lymphocytes # (Manual) Monocytes # (Manual) Platelet Estimate Plt Morphology Comment RBC Morphology Polychromasia Hypochromasia Macrocytosis VBG pH VBG pCO2 VBG pO2 VBG HCO3 VBG O2 Saturation VBG Base Excess Sodium 151 H 150 H Potassium 3.4 3.7 Chloride 104 102 Carbon Dioxide 36 H 35 H Anion Gap 14 17 BUN 45 H 46 H Creatinine 1.60 H 1.59 H Estim Creat Clear Calc 53.7 54.1 Estimated GFR 42 43 POC Glucose 155 H Random Glucose 178 H 149 H Calcium 8.9 9.5 D Phosphorus 3.6 3.9 Magnesium 1.9 2.0 Albumin Triglycerides 02/19/23 02/19/23 02/19/23 18:01 19:46 23:30 WBC RBC Hgb Hct MCV MCH MCHC RDW Plt Count MPV Immature Gran % (Auto) Neut % (Auto) Lymph % (Auto) [place] % (Auto) Eos % (Auto) Baso % (Auto) Lymph # (Auto) [place] # (Auto) Eos # (Auto) Baso # (Auto) Abs Immat Gran (auto) Absolute Neuts (auto) Absolute Nucleated RBC Nucleated RBC % (auto) Neutrophils % (Manual) Band Neutrophils % Lymphocytes % (Manual) Monocytes % (Manual) Abs Neuts (Manual) Lymphocytes # (Manual) Monocytes # (Manual) Platelet Estimate Plt Morphology Comment RBC Morphology Polychromasia Hypochromasia Macrocytosis VBG pH 7.47 H VBG pCO2 53 VBG pO2 55 VBG HCO3 39 H VBG O2 Saturation 87.0 VBG Base Excess 13.6 Sodium 147 H Potassium 3.1 L Chloride 100 Carbon Dioxide 33 H Anion Gap 17 BUN 45 H Creatinine 1.55 H Estim Creat Clear Calc 55.5 Estimated GFR 44 POC Glucose 209 H Random Glucose 242 H Calcium 9.0 Phosphorus Magnesium 1.9 Albumin Triglycerides 02/20/23 02/20/23 02/20/23 05:09 05:15 05:16 WBC 10.8 RBC 3.37 L Hgb 10.1 L Hct 32.7 L MCV 97.0 MCH 30.0 MCHC 30.9 L RDW 18.1 H Plt Count 217 MPV 11.5 Immature Gran % (Auto) Cancelled Neut % (Auto) Cancelled Lymph % (Auto) Cancelled [place] % (Auto) Cancelled Eos % (Auto) Cancelled Baso % (Auto) Cancelled Lymph # (Auto) Cancelled [place] # (Auto) Cancelled Eos # (Auto) Cancelled Baso # (Auto) Cancelled Abs Immat Gran (auto) Cancelled Absolute Neuts (auto) Cancelled Absolute Nucleated RBC 0.040 H Nucleated RBC % (auto) 0.4 H Neutrophils % (Manual) 88 H Band Neutrophils % 1 L Lymphocytes % (Manual) 8 L Monocytes % (Manual) 3 Abs Neuts (Manual) 9.6 H Lymphocytes # (Manual) 0.9 L Monocytes # (Manual) 0.3 Platelet Estimate NORMAL Plt Morphology Comment NORMAL RBC Morphology NOTED Polychromasia 1+ (0-2) Hypochromasia 1+ (5-14) Macrocytosis 1+ (5-14) VBG pH 7.50 H VBG pCO2 46 VBG pO2 40 VBG HCO3 37 H VBG O2 Saturation 67.0 VBG Base Excess 12.7 Sodium 144 Potassium 3.0 L Chloride 98 Carbon Dioxide 31 H Anion Gap 18 BUN 48 H Creatinine 1.57 H Estim Creat Clear Calc 54.2 Estimated GFR 43 POC Glucose 246 H Random Glucose 228 H Calcium 8.9 Phosphorus 2.8 Magnesium 1.9 Albumin 3.7 Triglycerides Microbiology Microbiology Results: Microbiology 02/18/23 19:12 Blood - Venous Blood Culture - Preliminary No growth after 24 hours. 02/18/23 17:41 Blood - Venous Blood Culture - Preliminary No growth after 24 hours. 02/18/23 12:34 Gallbladder Gram Stain - Final 02/18/23 12:34 Gallbladder Routine Culture - Preliminary No growth to date. 02/18/23 12:34 Gallbladder Anaerobic Culture - Preliminary No growth to date. 02/13/23 13:30 Gallbladder Fungal Identification - Preliminary No growth to date. 02/12/23 06:07 Blood - Venous Blood Culture - Final No growth after 5 days. 02/12/23 06:07 Blood - Venous Blood Culture - Final No growth after 5 days. 02/11/23 16:24 Blood - Venous Blood Culture - Final No growth after 5 days. 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, hypothyroidism p/w acute cholecystitis on 02/11, c/b septic shock, s/p cholecystostomy on 02/13; course c/b pulmonary edema, acute renal insufficiency, ileus, and severe hypothyroidism N: no acute issues CV: septic shock, resolved R: acute hypoxic respiratory failure d/t pulmonary edema; wean oxygen support as tolerated GI: acute cholecystitis, s/p cholecystostomy x2; ileus, improving; on TPN : non-oligouric ABEL; volume overload; to continue diuresis; to monitor electrolytes very closely in setting of diuresis; hypernatremia, previously on D5W gtt, resolved H: no acute issues; prior DVT; to resume DVT prophylaxis; to consider apixaban if no stigmata of hemorrhage ID: acute cholecystitis, c/b septic shock, s/p cholecystostmy; cholecystostmy found to be malpositioned, 2nd cholecystostomy placed, appreciate IR recommendations; continue zosyn, fluconazole E: c/f severe hypothyrodism; on levothyroxine 100 mcg IV daily, stress-dose steroids P: no acute issues Quality Stroke Does the patient have a stroke diagnosis?: No VTE Prior VTE?: Yes VTE Risk Level:: Surgical - high VTE Device Contraindication: N/A - Device Ordered VTE Drug Contraindication: N/A - Med Ordered
[2023-02-20] MEDS: Heparin Sodium,Porcine 5,000 UNIT/ML VIAL 5000 UNIT SUBCUT ×2 (08:56→16:28)
[2023-02-20] MEDS: acetaZOLAMIDE sodium 500 MG VIAL 375 MG IVPUSH ×2 (08:56→20:08)
[2023-02-20] MEDS: 0.9 % Sodium Chloride Flush 3 ML SYRINGE IVFLUSH ×2 (09:01→16:26)
[2023-02-20] MEDS: Potassium Chloride/H20 40 MEQ/100 ML PIGGYBACK 100 MEQ IV ×2 (09:01→13:21)
[2023-02-20] MEDS: Magnesium Sulfate/D5W 1 GM/100 ML PIGGYBACK IV (09:07)
[2023-02-20] MEDS: Nystatin Powder 15 GM BOTTLE 1 APPL TOPICAL ×3 (09:09→21:46)
[2023-02-20] MEDS: Pantoprazole Sodium 40 MG/10 ML VIAL IVPUSH (09:42)
--- NOTE | 2023-02-20 09:50 | MHC.CLN ---
F/U DISCUSSED AT ROUNDS WITH MD LABS REVIEWED AND COMMUNICATED WITH PHARMACY CONTINUE TPN TODAY TO 83.33 ML PER HOUR TO PROVIDE 300G DEXTROSE, 100G PROTEIN (1.5g/kg), 1420 KCALS, HOLD LIPIDS SKIN NOW WITH STAGE II PRESSURE INJURIES TO BILATERAL BUTTOCKS-TPN WILL PROMOTE WOUND HEALING REPLETES LYTES NEEDED
--- NOTE | 2023-02-20 10:14 | PM.PNCARD ---
Subjective Subjective Date of Service: 02/20/23 Principal diagnosis: Acute Cholecystitis and ABEL Interval history: Patient had atrial flutter yesterday rate controlled lasting for 4 hours. There was no hemodynamic compromise or heart failure. Patient converted to sinus rhythm. Yesterday TSH was drawn which was mildly elevated in the 5 range although T4 was undetectable. Patient was then thought to be in myxedema coma and responded to IV levothyroxine and has much improved mental status. The sodium is improved. Creatinine is stable. Has had negative balance of about 1100 cc with overall total positive balance only of 3 L. His leg edema is improved. Oxygenation has improved significantly. Noted coffee-ground drainage from the nasogastric tube Review of Systems Constitutional: Reports no additional constitutional complaints Cardiovascular: Reports no additional cardiovascular complaints Respiratory: Reports no additional respiratory complaints Reports system reviewed and no additional complaints, except as documented Physical Exam Vital Signs: Last Vital Signs Temp 98.0 F 02/20/23 08:00 Pulse 81 02/20/23 10:00 Resp 15 02/20/23 10:00 BP 114/57 L 02/20/23 10:00 Pulse Ox 95 02/20/23 10:00 O2 Del Method Room Air 02/20/23 10:00 O2 Flow Rate 2 02/19/23 21:00 FiO2 21 02/20/23 04:00 Oxygen Flow Rate 30 02/16/23 07:44 BMI result Body Mass Index 45.9 Const General: cooperative, comfortable and awake Nutritional Appearance: obese Orientation/consciousness: patient oriented x3 Neck Neck: Yes trachea midline, Yes supple and Yes no JVD Cardio Rate: regular rate Rhythm: regular rhythm Heart sounds: S1 normal heart sound present, S2 normal heart sound present, no click, no gallops and no murmurs Skin General skin exam: petechiae Neuro General: patient oriented x3 Extrem General: No clubbing, No cyanosis and Yes edema (Improved) Objective Labs and Meds 02/20/23 05:15 02/20/23 05:15 Lab results: Laboratory Results - last 24 hr 02/19/23 02/19/23 02/19/23 09:48 12:11 12:55 WBC RBC Hgb Hct MCV MCH MCHC RDW Plt Count MPV Immature Gran % (Auto) Neut % (Auto) Lymph % (Auto) [place] % (Auto) Eos % (Auto) Baso % (Auto) Lymph # (Auto) [place] # (Auto) Eos # (Auto) Baso # (Auto) Abs Immat Gran (auto) Absolute Neuts (auto) Absolute Nucleated RBC Nucleated RBC % (auto) Neutrophils % (Manual) Band Neutrophils % Lymphocytes % (Manual) Monocytes % (Manual) Abs Neuts (Manual) Lymphocytes # (Manual) Monocytes # (Manual) Platelet Estimate Plt Morphology Comment RBC Morphology Polychromasia Hypochromasia Macrocytosis VBG pH VBG pCO2 VBG pO2 VBG HCO3 VBG O2 Saturation VBG Base Excess Sodium 152 H 151 H Potassium 3.7 3.4 Chloride 105 104 Carbon Dioxide 33 H 36 H Anion Gap 18 14 BUN 45 H 45 H Creatinine 1.64 H 1.60 H Estim Creat Clear Calc 52.4 53.7 Estimated GFR 41 42 POC Glucose 157 H Random Glucose 216 H 178 H Calcium 8.8 8.9 Phosphorus 3.8 3.6 Magnesium 2.0 1.9 Albumin Triglycerides 226 H 02/19/23 02/19/23 02/19/23 15:32 17:24 18:01 WBC RBC Hgb Hct MCV MCH MCHC RDW Plt Count MPV Immature Gran % (Auto) Neut % (Auto) Lymph % (Auto) [place] % (Auto) Eos % (Auto) Baso % (Auto) Lymph # (Auto) [place] # (Auto) Eos # (Auto) Baso # (Auto) Abs Immat Gran (auto) Absolute Neuts (auto) Absolute Nucleated RBC Nucleated RBC % (auto) Neutrophils % (Manual) Band Neutrophils % Lymphocytes % (Manual) Monocytes % (Manual) Abs Neuts (Manual) Lymphocytes # (Manual) Monocytes # (Manual) Platelet Estimate Plt Morphology Comment RBC Morphology Polychromasia Hypochromasia Macrocytosis VBG pH 7.47 H VBG pCO2 53 VBG pO2 55 VBG HCO3 39 H VBG O2 Saturation 87.0 VBG Base Excess 13.6 Sodium 150 H Potassium 3.7 Chloride 102 Carbon Dioxide 35 H Anion Gap 17 BUN 46 H Creatinine 1.59 H Estim Creat Clear Calc 54.1 Estimated GFR 43 POC Glucose 155 H Random Glucose 149 H Calcium 9.5 D Phosphorus 3.9 Magnesium 2.0 Albumin Triglycerides 02/19/23 02/19/23 02/20/23 19:46 23:30 05:09 WBC RBC Hgb Hct MCV MCH MCHC RDW Plt Count MPV Immature Gran % (Auto) Neut % (Auto) Lymph % (Auto) [place] % (Auto) Eos % (Auto) Baso % (Auto) Lymph # (Auto) [place] # (Auto) Eos # (Auto) Baso # (Auto) Abs Immat Gran (auto) Absolute Neuts (auto) Absolute Nucleated RBC Nucleated RBC % (auto) Neutrophils % (Manual) Band Neutrophils % Lymphocytes % (Manual) Monocytes % (Manual) Abs Neuts (Manual) Lymphocytes # (Manual) Monocytes # (Manual) Platelet Estimate Plt Morphology Comment RBC Morphology Polychromasia Hypochromasia Macrocytosis VBG pH VBG pCO2 VBG pO2 VBG HCO3 VBG O2 Saturation VBG Base Excess Sodium 147 H Potassium 3.1 L Chloride 100 Carbon Dioxide 33 H Anion Gap 17 BUN 45 H Creatinine 1.55 H Estim Creat Clear Calc 55.5 Estimated GFR 44 POC Glucose 209 H 246 H Random Glucose 242 H Calcium 9.0 Phosphorus Magnesium 1.9 Albumin Triglycerides 02/20/23 02/20/23 05:15 05:16 WBC 10.8 RBC 3.37 L Hgb 10.1 L Hct 32.7 L MCV 97.0 MCH 30.0 MCHC 30.9 L RDW 18.1 H Plt Count 217 MPV 11.5 Immature Gran % (Auto) Cancelled Neut % (Auto) Cancelled Lymph % (Auto) Cancelled [place] % (Auto) Cancelled Eos % (Auto) Cancelled Baso % (Auto) Cancelled Lymph # (Auto) Cancelled [place] # (Auto) Cancelled Eos # (Auto) Cancelled Baso # (Auto) Cancelled Abs Immat Gran (auto) Cancelled Absolute Neuts (auto) Cancelled Absolute Nucleated RBC 0.040 H Nucleated RBC % (auto) 0.4 H Neutrophils % (Manual) 88 H Band Neutrophils % 1 L Lymphocytes % (Manual) 8 L Monocytes % (Manual) 3 Abs Neuts (Manual) 9.6 H Lymphocytes # (Manual) 0.9 L Monocytes # (Manual) 0.3 Platelet Estimate NORMAL Plt Morphology Comment NORMAL RBC Morphology NOTED Polychromasia 1+ (0-2) Hypochromasia 1+ (5-14) Macrocytosis 1+ (5-14) VBG pH 7.50 H VBG pCO2 46 VBG pO2 40 VBG HCO3 37 H VBG O2 Saturation 67.0 VBG Base Excess 12.7 Sodium 144 Potassium 3.0 L Chloride 98 Carbon Dioxide 31 H Anion Gap 18 BUN 48 H Creatinine 1.57 H Estim Creat Clear Calc 54.2 Estimated GFR 43 POC Glucose Random Glucose 228 H Calcium 8.9 Phosphorus 2.8 Magnesium 1.9 Albumin 3.7 Triglycerides Imaging Radiologist's impression: Impressions Chest X-Ray 02/13/23 06:00 IMPRESSION: Right perihilar and bilateral lung base opacities most consistent with atelectasis and less likely infiltrates. Similar findings were present previously. Chest X-Ray 02/13/23 10:28 IMPRESSION: Unsatisfactory position of right central venous line Abscess Drainage CT 02/13/23 14:25 IMPRESSION: Placement of 10.2 [place] cholecystostomy tube. Abdomen/Pelvis CT 02/15/23 12:05 IMPRESSION: Migrated gallbladder drain. Emphysematous cholecystitis. Bilateral dense consolidation with air bronchogram and small pleural effusion Fleischner guidelines were followed. Abscess Drainage CT 02/18/23 12:46 IMPRESSION: CT-guided cholecystostomy tube placement. Chest CT 02/19/23 11:50 IMPRESSION: 1. Low lung volume with dependent atelectasis at both lung bases, right greater than left. 2. Small to moderate volume bilateral pleural effusions. 3. No evidence of vascular congestion or pulmonary edema. Fleischner guidelines were followed. Head CT 02/19/23 11:50 IMPRESSION: 1. No acute intracranial pathology. 2. Chronic white matter small vessel ischemic changes. Progress Note: A&P Assessment and plan (1) Acute respiratory failure: Status: Acute Assessment and Plan: Acute respiratory failure, combination of multiple factors including heart failure. Has had negative balance of greater than 6 L in last few days. Clinically requiring much less oxygen. Continue supportive care. Out of bed to chair and incentive spirometry. Oxygen as required. Can switch Lasix drip to IV Lasix 20 mg b.i.d. and eventually switch to p.o. by tomorrow if remains stable. His kidney function remained stable and sodium is improved significantly. Mental status improved since replacement of thyroid hormone. Eventually will require ischemic workup once more stable (2) Cardiac arrhythmia: Status: Acute Assessment and Plan: Cardiac arrhythmias due to electrolyte abnormalities as well as thyroid abnormalities. Patient remaining in sinus rhythm but had atrial flutter which was rate controlled yesterday for 4 hours. There were no compromise during that time. Can continue monitor full disclosure cardiac telemetry. If no significant bleeding can start on oral anticoagulation therapy. Will follow with you Time Spent With Patient Time: Total time managing care of this patient today ____ minutes. Progress Note: Quality Stroke Does the patient have a stroke diagnosis?: No Procedures Date of Service Date of Service: 02/20/23
--- NOTE | 2023-02-20 11:01 | HO.WOUND ---
Wound Consult: Follow Up 72yr old [place] [facility] [place] 22:[place] - See progress notes and H&P for detailed history. Pt has been seen by this proposal writer for other skin injuries - see chart for detailed notes. Chart review revealed new wound observed by direct care team to bridge of nose. Arrival to bedside pt is agreeable to assessment and photo documentation. Of note - pt has commercial securement device for NG tube in place along with oxygen mask and CPAP is used at night - these devices are contributing to the pressure injury development. Direct care team advised to off load and pad all bony prominences prior to device securement. Bridge of Nose Etiology: Device Related Stage 2 Pressure Injury Measurements: 0.8cm x 0.4cm x 0.1cm Wound Bed: red dry wound bed Drainage / Odor: scant serosang drainage noted on bandaid when removed Edges: ? attached [place] wound: Red blanchable erythema No Induration, No Fluctuance Pain: tender to touch Goals of Treatment: ? Moist wound healing and protect from pressure and friction with foam dressing Recommendations: 1. Turn and Reposition every 2 hours and as needed for patient comfort consider use of wedges available in the storeroom. 2. Off Load all bony prominences with use of pillows, wedges and heel boots. 3. Monitor for incontinence and moisture control - use dry abhishek pads and barrier creams 4. Provide adequate and supplemental nutrition. 5. Consider Bariatric Bed. 6. Skin Folds - Cleanse with routine bathing - apply Antifungal powder per provider order - twice a day. Consider Interdry sheets to translocate moisture away from skin folds - available in Storeroom. 7. Buttocks - Off Load Pressure - Cleanse with PH balance Harley spray, pat dry. ?Apply thin layer of Triad to wound bed - only pat and dab no scrub and rub when soiling occurs. Reapply thin layer PRN after each episode of incontinence. 8. Back and Bilateral Legs - Cleanse with PH balance Harley spray, pat dry. ?Apply thin layer of Vaseline to moisturize dry skin twice daily. 9. Bridge of nose - Cleanse with NS, pat dry. Apply no sting skin prep allow to dry. Cut Foam dressing to cover wound bed and protect from medical devices. Ensure bony areas are padded with foam dressings prior to device application such as CPAP. Change foam every other day and PRN. Re-consult wound care Nurse for wound deterioration or wound changes.
[2023-02-20] MEDS: Hydrocortisone Sod Succ/PF 100 MG VIAL 50 MG IVPUSH ×2 (12:09→16:34)
[2023-02-20] MEDS: Calcium Chloride 1 GM/10 ML SYRINGE IVPUSH (12:14)
[2023-02-20] MEDS: Potassium Phosphate/NS 15 MMOL/250 ML PLAST..BAG 62.5 MMOL IV ×2 (12:17→16:30)
[2023-02-20 12:23] LABS: Glucose, Whole Blood 222 mg/dL (60-115)
[2023-02-20 12:47] LABS: Magnesium 2.3 mg/dL (1.6-2.6)
[2023-02-20 12:48] LABS: Anion Gap 14 (12-20); Blood Urea Nitrogen 51 mg/dL (9-16); Calcium 11.1 mg/dL (8.4-10.2); Carbon Dioxide 33 mmol/L (22-29); Chloride 98 mmol/L (96-108); Creatinine Clr Calc Pharmacy 52.8; Estimated Glomerular Filt Rate 42; Glucose Random 237 mg/dL (60-115); Phosphorus 3.7 mg/dL (2.7-4.5); Sodium 142 mmol/L (135-145)
[2023-02-20] MEDS: EPINEPHrine 5 MG in Dextrose 5 % 250 ML 81.4 MG IVCONT ×3 (13:18→19:51)
--- NOTE | 2023-02-20 13:42 | PC.NURSE ---
After cleaning pt for incont of liquid mucoid stool x2 pt has increased output from cholecystocopy drain. Pt begins to have episodes of bradycardia to the 30-40 sinus vs slow flutter. provider aware and at bedside. bradycardia becomes more frequent. repeat labs, k started, lasix drip stopped, fluids stopped. epi drip started at .2.
--- NOTE | 2023-02-20 13:53 | W.MHC.ACPN ---
Advanced Care Planning Note Advanced Care Planning Note Discussed with: family member(s) Time spent (in minutes): 30 Narrative: Mr. Nance became bradycardic and hemodynamically unstable, and is increasingly encephalopathic, waking minimallu to verbal stimulus. Mr. Nance' [id number] and healthcare proxy, Jennifer, was called. We discussed Mr. Nance' multi-system organ failure throughout his ICU stay and our shared concern that Mr. Nance would very likely not return to his baseline mental and functional status, if he did survive this ICU stay. Given this, it was decided to change Mr. Nance' code status to DNR, DNI. I encouraged Jennifer to come to the hospital, which she plans to do tomorrow. In the interim, we discussed that if Mr. Pulido clinical status deteriorates, our team would call Jennifer, and we would likely change Mr. Nance' philosophy of care to comfort-focused care at that time. Problems Discussed (1) Acute respiratory failure: (2) Cardiac arrhythmia:
[2023-02-20 14:01] LABS: Hematocrit 38.1 % (42.0-52.0); Mean Corpuscular HGB Conc 31.5 g/dl (31.0-36.0); Mean Corpuscular Hemoglobin 30.3 pg (27.0-33.0); Mean Corpuscular Volume 96.2 fL (80.0-98.0); Mean Platelet Volume 11.3 fL (9.4-12.4); NRBC Pct Auto 0.9 /100WBC (0.0-0.2); Platelet Count 320 X10*3/uL (160-400); Red Blood Count 3.96 X10*6/uL (4.60-5.80); Red Cell Distribution Width 18.1 % (11.0-16.0); White Blood Count 19.7 X10*3/uL (4.8-10.8)
[2023-02-20 14:09] LABS: VBG Base Excess 3.6 mmol/L; VBG HCO3 30 mmol/L (22-26); VBG pCO2 56 mmHg; VBG pH 7.34 (7.32-7.43); VBG pO2 74 mmHg
[2023-02-20 14:13] LABS: Venous Blood Gas Refer to POC result
[2023-02-20 14:14] LABS: Lactic Acid 3.4 mmol/L (0.5-2.0)
[2023-02-20 14:19] LABS: Band Neutrophils Percent 3 % (3-5); Lymphocytes Absolute Manual 4.5 X10*3/uL (1.2-4.9); Lymphocytes Percent Manual 23 % (20-40); Metamyelocytes Absolute 0.4 X10*3/uL; Metamyelocytes Percent 2 %; Monocytes Absolute Manual 0.8 X10*3/uL (0.1-1.2); Monocytes Percent Manual 4 % (2-11); Neutrophils Percent Manual 68 % (45-73)
[2023-02-20 14:20] LABS: Nucleated Red Blood Cells 2 /100WBC (0-0)
[2023-02-20 14:21] LABS: Hypochromasia 1+ (5-14) /OIF; Platelet Estimate NORMAL (NORMAL); Platelet Morphology Comment NORMAL; Polychromasia 1+ (0-2) /OIF; RBC Morphology NOTED
[2023-02-20 14:56] LABS: Magnesium 2.3 mg/dL (1.6-2.6)
[2023-02-20 15:17] LABS: TSH reflex Free T4 4.37 uIU/mL (0.32-4.0)
[2023-02-20 15:54] LABS: Free T4 (Free Thyroxine) 0.72 ng/dL (0.71-1.85)
[2023-02-20 15:55] LABS: Reflex Lactate? Lactic Acid Added
[2023-02-20 17:22] LABS: ~Lactic Acid-LAB USE ONLY 3.8 mmol/L (0.5-2.0)
[2023-02-20] MEDS: DAPTOmycin 850 MG in 0.9 % Sodium Chloride 50 ML 134 MG IV (17:54)
[2023-02-20 18:23] LABS: Glucose, Whole Blood 418 mg/dL (60-115)
[2023-02-20 18:23] LABS: Glucose, Whole Blood 324 mg/dL (60-115)
[2023-02-20] MEDS: Insulin Regular, Human 100 UNIT/ML 3 ML VIAL 10 UNIT IVPUSH (18:39)
[2023-02-20 18:42] LABS: Reflex Lactate? 2 Y
[2023-02-20 18:46] LABS: Anion Gap 22 (12-20); Blood Urea Nitrogen 56 mg/dL (9-16); Calcium 9.7 mg/dL (8.4-10.2); Carbon Dioxide 27 mmol/L (22-29); Chloride 96 mmol/L (96-108); Creatinine Clr Calc Pharmacy 44.5; Estimated Glomerular Filt Rate 35; Glucose Random 458 mg/dL (60-115); Phosphorus 5.7 mg/dL (2.7-4.5); Potassium 4.5 mmol/L (3.3-5.1); Sodium 140 mmol/L (135-145)
--- NOTE | 2023-02-20 19:01 | PM.PNNEP ---
Subjective Subjective Date of Service: 02/20/23 Principal diagnosis: Acute Cholecystitis and ABEL Interval history: Seen and exmained, events noted Physical Exam Vital Signs: Vital Signs: Last Vital Signs Temp 97.1 F 02/20/23 16:00 Pulse 91 02/20/23 18:00 Resp 22 H 02/20/23 18:00 BP 149/70 H 02/20/23 18:00 Pulse Ox 98 02/20/23 18:00 O2 Del Method CPAP 02/20/23 18:00 O2 Flow Rate 30 02/20/23 16:00 FiO2 30 02/20/23 18:00 Oxygen Flow Rate 30 02/20/23 16:00 BMI result Body Mass Index 45.9 Const: General: no acute distress, alert, awake, ill appearing, lethargic ( [place]) and tired appearing Nutritional Appearance: obese Orientation/consciousness: patient oriented x3 and lethargic ( [place]able) Limitations: other limitations (Nonambulatory) HEENT: Other: CPAP in place, facial swelling Head: Yes normocephalic and Yes atraumatic Ears: hearing grossly normal bilaterally Eyes: Sclerae: sclerae normal EOM: EOMs intact bilaterally Neck: Neck: Yes no lymphadenopathy, Yes trachea midline and Yes supple Resp: Other: breathing with assistance of CPAP Effort & Inspection: normal respiratory effort, no audible wheezes, no cough, no respiratory distress and tachypneic Auscultation: clear to auscultation bilaterally, crackles ( Bilateral) and diminished lung sounds Cardio: Rate: tachycardic Rhythm: regular rhythm Heart sounds: no gallops, no murmurs and no rubs GI: Other: obese, distended, tender right upper quadrant Inspection: Yes Abdominal panniculus present and Yes obesity Palpation (GI): Soft to palpation, nontender, no guarding, not rigid and Other GI palpation findings present ( Nontender) Percussion: Yes normal to percussion Auscultation: normal bowel sounds Rectal Exam - Male: Yes deferred Neuro: General: patient oriented x3 Extrem: Other: peripheral edema General: Yes no pedal edema (2+ bilateral), No clubbing, No cyanosis and Yes edema ( 2+ bilateral) Objective Data Labs 02/20/23 13:50 02/20/23 18:16 Labs: Laboratory Results - last 24 hr 02/19/23 02/19/23 02/20/23 19:46 23:30 05:09 WBC RBC Hgb Hct MCV MCH MCHC RDW Plt Count MPV Immature Gran % (Auto) Neut % (Auto) Lymph % (Auto) [place] % (Auto) Eos % (Auto) Baso % (Auto) Lymph # (Auto) [place] # (Auto) Eos # (Auto) Baso # (Auto) Abs Immat Gran (auto) Absolute Neuts (auto) Absolute Nucleated RBC Nucleated RBC % (auto) Neutrophils % (Manual) Band Neutrophils % Lymphocytes % (Manual) Monocytes % (Manual) Metamyelocytes % Abs Neuts (Manual) Lymphocytes # (Manual) Monocytes # (Manual) Metamyelocytes # Nucleated RBCs Platelet Estimate Plt Morphology Comment RBC Morphology Polychromasia Hypochromasia Macrocytosis VBG pH VBG pCO2 VBG pO2 VBG HCO3 VBG O2 Saturation VBG Base Excess Sodium 147 H Potassium 3.1 L Chloride 100 Carbon Dioxide 33 H Anion Gap 17 BUN 45 H Creatinine 1.55 H Estim Creat Clear Calc 55.5 Estimated GFR 44 POC Glucose 209 H 246 H Random Glucose 242 H Lactic Acid Lactic Acid F/U @ 2Hr Calcium 9.0 Phosphorus Magnesium 1.9 Albumin TSH Free T4 02/20/23 02/20/23 02/20/23 05:15 05:16 12:14 WBC 10.8 RBC 3.37 L Hgb 10.1 L Hct 32.7 L MCV 97.0 MCH 30.0 MCHC 30.9 L RDW 18.1 H Plt Count 217 MPV 11.5 Immature Gran % (Auto) Cancelled Neut % (Auto) Cancelled Lymph % (Auto) Cancelled [place] % (Auto) Cancelled Eos % (Auto) Cancelled Baso % (Auto) Cancelled Lymph # (Auto) Cancelled [place] # (Auto) Cancelled Eos # (Auto) Cancelled Baso # (Auto) Cancelled Abs Immat Gran (auto) Cancelled Absolute Neuts (auto) Cancelled Absolute Nucleated RBC 0.040 H Nucleated RBC % (auto) 0.4 H Neutrophils % (Manual) 88 H Band Neutrophils % 1 L Lymphocytes % (Manual) 8 L Monocytes % (Manual) 3 Metamyelocytes % Abs Neuts (Manual) 9.6 H Lymphocytes # (Manual) 0.9 L Monocytes # (Manual) 0.3 Metamyelocytes # Nucleated RBCs Platelet Estimate NORMAL Plt Morphology Comment NORMAL RBC Morphology NOTED Polychromasia 1+ (0-2) Hypochromasia 1+ (5-14) Macrocytosis 1+ (5-14) VBG pH 7.50 H VBG pCO2 46 VBG pO2 40 VBG HCO3 37 H VBG O2 Saturation 67.0 VBG Base Excess 12.7 Sodium 144 142 Potassium 3.0 L 3.0 L Chloride 98 98 Carbon Dioxide 31 H 33 H Anion Gap 18 14 BUN 48 H 51 H Creatinine 1.57 H 1.61 H Estim Creat Clear Calc 54.2 52.8 Estimated GFR 43 42 POC Glucose Random Glucose 228 H 237 H Lactic Acid Lactic Acid F/U @ 2Hr Calcium 8.9 11.1 H D Phosphorus 2.8 3.7 Magnesium 1.9 2.3 Albumin 3.7 TSH Free T4 02/20/23 02/20/23 02/20/23 12:19 13:50 13:50 WBC 19.7 H RBC 3.96 L Hgb 12.0 L Hct 38.1 L MCV 96.2 MCH 30.3 MCHC 31.5 RDW 18.1 H Plt Count 320 D MPV 11.3 Immature Gran % (Auto) Cancelled Neut % (Auto) Cancelled Lymph % (Auto) Cancelled [place] % (Auto) Cancelled Eos % (Auto) Cancelled Baso % (Auto) Cancelled Lymph # (Auto) Cancelled [place] # (Auto) Cancelled Eos # (Auto) Cancelled Baso # (Auto) Cancelled Abs Immat Gran (auto) Cancelled Absolute Neuts (auto) Cancelled Absolute Nucleated RBC 0.180 H Nucleated RBC % (auto) 0.9 H Neutrophils % (Manual) 68 Band Neutrophils % 3 Lymphocytes % (Manual) 23 Monocytes % (Manual) 4 Metamyelocytes % 2 Abs Neuts (Manual) 14.0 H Lymphocytes # (Manual) 4.5 Monocytes # (Manual) 0.8 Metamyelocytes # 0.4 Nucleated RBCs 2 H Platelet Estimate NORMAL Plt Morphology Comment NORMAL RBC Morphology NOTED Polychromasia 1+ (0-2) Hypochromasia 1+ (5-14) Macrocytosis VBG pH VBG pCO2 VBG pO2 VBG HCO3 VBG O2 Saturation VBG Base Excess Sodium Potassium Chloride Carbon Dioxide Anion Gap BUN Creatinine Estim Creat Clear Calc Estimated GFR POC Glucose 222 H Random Glucose Lactic Acid 3.4 H* Lactic Acid F/U @ 2Hr Calcium Phosphorus Magnesium Cancelled 2.3 Albumin TSH 4.37 H Free T4 0.72 02/20/23 02/20/23 02/20/23 13:56 16:39 18:16 WBC RBC Hgb Hct MCV MCH MCHC RDW Plt Count MPV Immature Gran % (Auto) Neut % (Auto) Lymph % (Auto) [place] % (Auto) Eos % (Auto) Baso % (Auto) Lymph # (Auto) [place] # (Auto) Eos # (Auto) Baso # (Auto) Abs Immat Gran (auto) Absolute Neuts (auto) Absolute Nucleated RBC Nucleated RBC % (auto) Neutrophils % (Manual) Band Neutrophils % Lymphocytes % (Manual) Monocytes % (Manual) Metamyelocytes % Abs Neuts (Manual) Lymphocytes # (Manual) Monocytes # (Manual) Metamyelocytes # Nucleated RBCs Platelet Estimate Plt Morphology Comment RBC Morphology Polychromasia Hypochromasia Macrocytosis VBG pH 7.34 VBG pCO2 56 VBG pO2 74 VBG HCO3 30 H VBG O2 Saturation 93.0 VBG Base Excess 3.6 Sodium 140 Potassium 4.5 D Chloride 96 Carbon Dioxide 27 Anion Gap 22 H BUN 56 H Creatinine 1.91 H Estim Creat Clear Calc 44.5 Estimated GFR 35 POC Glucose Random Glucose 458 H* Lactic Acid Lactic Acid F/U @ 2Hr 3.8 H* Calcium 9.7 D Phosphorus 5.7 H Magnesium Albumin TSH Free T4 02/20/23 02/20/23 18:18 18:20 WBC RBC Hgb Hct MCV MCH MCHC RDW Plt Count MPV Immature Gran % (Auto) Neut % (Auto) Lymph % (Auto) [place] % (Auto) Eos % (Auto) Baso % (Auto) Lymph # (Auto) [place] # (Auto) Eos # (Auto) Baso # (Auto) Abs Immat Gran (auto) Absolute Neuts (auto) Absolute Nucleated RBC Nucleated RBC % (auto) Neutrophils % (Manual) Band Neutrophils % Lymphocytes % (Manual) Monocytes % (Manual) Metamyelocytes % Abs Neuts (Manual) Lymphocytes # (Manual) Monocytes # (Manual) Metamyelocytes # Nucleated RBCs Platelet Estimate Plt Morphology Comment RBC Morphology Polychromasia Hypochromasia Macrocytosis VBG pH VBG pCO2 VBG pO2 VBG HCO3 VBG O2 Saturation VBG Base Excess Sodium Potassium Chloride Carbon Dioxide Anion Gap BUN Creatinine Estim Creat Clear Calc Estimated GFR POC Glucose 418 H* 324 H Random Glucose Lactic Acid Lactic Acid F/U @ 2Hr Calcium Phosphorus Magnesium Albumin TSH Free T4 Microbiology Microbiology Results: Microbiology 02/18/23 12:34 Gallbladder Gram Stain - Final 02/18/23 12:34 Gallbladder Routine Culture - Final No growth after 2 days 02/18/23 19:12 Blood - Venous Blood Culture - Preliminary No growth after 24 hours. 02/18/23 17:41 Blood - Venous Blood Culture - Preliminary No growth after 24 hours. 02/13/23 13:30 Gallbladder Fungal Identification - Preliminary No growth to date. 02/12/23 06:07 Blood - Venous Blood Culture - Final No growth after 5 days. 02/12/23 06:07 Blood - Venous Blood Culture - Final No growth after 5 days. 02/11/23 16:24 Blood - Venous Blood Culture - Final No growth after 5 days. 02/13/23 13:30 Gallbladder Gram Stain - Final 02/13/23 13:30 Gallbladder Routine Culture - Final No growth after 2 days 02/11/23 16:15 Blood - Venous Blood Culture - Final Coag negative Staphylococcus Procedures Date of Service Date of Service: 02/20/23 Assessment & Plan Assessment and plan (1) Acute cholecystitis: Status: Acute (2) ABEL (acute kidney injury): Status: Acute (3) Bacteremia: Status: Acute (4) Morbid obesity: Status: Acute (5) Rheumatoid arthritis: Status: Acute Plan 72-year-old gentleman underlying morbid obesity, DVT on Eliquis, obstructive sleep, rheumatoid arthritis, hypothyroidism admitted 02/11/2023 for acute cholecystitis. Course c/b limited surgical options and Septic shock with volume overload. Required Latrice-tube. 1. ABEL, now non-oliguric. 2. Volume overload precipitated by ATN 3. Hypernatremia resolving with IV hypotonic fluids REC: - track UOP/renal func; TPN as noted, avid NTOXINS; no indication for ORTHOPEDIC NURSE PRACTITIONER Will follow with team Time Spent With Patient Time: Total time managing care of this patient today ____ minutes. Progress Note: Quality Stroke Does the patient have a stroke diagnosis?: No
[2023-02-20 19:27] LABS: Glucose, Whole Blood 404 mg/dL (60-115)
[2023-02-20 19:31] LABS: ~Lactic Acid-LAB USE ONLY 4.1 mmol/L (0.5-2.0)
[2023-02-20] MEDS: Insulin Regular/NS 100 UNIT/100 ML PLAST..BAG IVCONT (20:50)
[2023-02-20 21:13] LABS: Magnesium 2.2 mg/dL (1.6-2.6)
[2023-02-20 21:20] LABS: Glucose, Whole Blood 410 mg/dL (60-115)
[2023-02-20 22:15] LABS: Glucose, Whole Blood 416 mg/dL (60-115)
[2023-02-20] MEDS: Norepinephrine Bitartrate/D5W 8 MG/250 ML PLAST..BAG 12.47 MG IV (23:08)
[2023-02-20 23:20] LABS: Glucose, Whole Blood 402 mg/dL (60-115)
[2023-02-21] VITALS (20 sets, daily range): BP systolic 89–119; BP diastolic 56–72; PULSE 71–106; RESP 12–21; TEMP 36.1–36.3; O2SAT 93–99; BMI 45.7
[2023-02-21 00:04] LABS: Glucose, Whole Blood 331 mg/dL (60-115)
[2023-02-21] MEDS: Heparin Sodium,Porcine 5,000 UNIT/ML VIAL 5000 UNIT SUBCUT ×2 (00:29→08:56)
[2023-02-21] MEDS: Hydrocortisone Sod Succ/PF 100 MG VIAL 50 MG IVPUSH ×2 (00:30→05:39)
[2023-02-21] MEDS: 0.9 % Sodium Chloride Flush 3 ML SYRINGE IVFLUSH ×4 (00:30→23:14)
[2023-02-21 00:34] LABS: Lactic Acid 3.4 mmol/L (0.5-2.0)
[2023-02-21 00:50] LABS: Anion Gap 19 (12-20); Blood Urea Nitrogen 59 mg/dL (9-16); Carbon Dioxide 28 mmol/L (22-29); Chloride 99 mmol/L (96-108); Creatinine Clr Calc Pharmacy 48.6; Estimated Glomerular Filt Rate 38; Glucose Random 322 mg/dL (60-115); Magnesium 2.1 mg/dL (1.6-2.6); Potassium 3.7 mmol/L (3.3-5.1); Sodium 142 mmol/L (135-145)
[2023-02-21 01:05] LABS: Glucose, Whole Blood 205 mg/dL (60-115)
[2023-02-21 01:44] LABS: Reflex Lactate? Lactic Acid Added
[2023-02-21 02:10] LABS: Glucose, Whole Blood 152 mg/dL (60-115)
[2023-02-21 02:16] LABS: ~Lactic Acid-LAB USE ONLY 1.9 mmol/L (0.5-2.0)
[2023-02-21] MEDS: Piperacillin Sodium/Tazobactam 3.375 GM in 0.9 % Sodium Chloride 50 ML IV ×2 (02:35→08:57)
[2023-02-21 03:04] LABS: Glucose, Whole Blood 132 mg/dL (60-115)
[2023-02-21 05:09] LABS: Glucose, Whole Blood 167 mg/dL (60-115)
[2023-02-21] MEDS: Levothyroxine Sodium 100 MCG/5 ML VIAL IVPUSH (05:39)
[2023-02-21] MEDS: Pantoprazole Sodium 40 MG/10 ML VIAL IVPUSH (05:39)
[2023-02-21 05:53] LABS: VBG Base Excess 3.7 mmol/L; VBG HCO3 31 mmol/L (22-26); VBG pCO2 62 mmHg; VBG pO2 57 mmHg
[2023-02-21 05:58] LABS: Venous Blood Gas Refer to POC result
[2023-02-21 06:16] LABS: Hematocrit 32.3 % (42.0-52.0); Mean Corpuscular Hemoglobin 30.3 pg (27.0-33.0); Mean Corpuscular Volume 97.9 fL (80.0-98.0); Mean Platelet Volume 11.3 fL (9.4-12.4); NRBC Pct Auto 1.1 /100WBC (0.0-0.2); Platelet Count 226 X10*3/uL (160-400); Red Cell Distribution Width 18.5 % (11.0-16.0); White Blood Count 14.8 X10*3/uL (4.8-10.8)
[2023-02-21 06:24] LABS: Magnesium 2.3 mg/dL (1.6-2.6)
[2023-02-21] MEDS: Insulin Lispro 100 UNIT/ML 3 ML VIAL SUBCUT (06:25)
[2023-02-21 06:28] LABS: Glucose, Whole Blood 183 mg/dL (60-115)
[2023-02-21 06:36] LABS: Alanine Aminotransferase 97 U/L (0-40); Albumin Level 3.5 g/dL (3.5-5.0); Alkaline Phosphatase 116 U/L (39-117); Anion Gap 17 (12-20); Aspartate Amino Transferase 215 U/L (5-37); Bilirubin Total 0.5 mg/dL (0.0-1.0); Blood Urea Nitrogen 57 mg/dL (9-16); Calcium 8.8 mg/dL (8.4-10.2); Carbon Dioxide 29 mmol/L (22-29); Chloride 101 mmol/L (96-108); Creatinine Clr Calc Pharmacy 57.3; Estimated Glomerular Filt Rate 46; Glucose Random 183 mg/dL (60-115); Magnesium 2.3 mg/dL (1.6-2.6); Phosphorus 5.7 mg/dL (2.7-4.5); Potassium 3.4 mmol/L (3.3-5.1); Sodium 144 mmol/L (135-145); Total Protein 6.2 g/dL (6.5-8.0)
[2023-02-21 06:40] LABS: TSH reflex Free T4 1.11 uIU/mL (0.32-4.0)
[2023-02-21 07:33] LABS: Band Neutrophils Percent 3 % (3-5); Lymphocytes Absolute Manual 1.2 X10*3/uL (1.2-4.9); Lymphocytes Percent Manual 8 % (20-40); Metamyelocytes Absolute 0.3 X10*3/uL; Metamyelocytes Percent 2 %; Monocytes Absolute Manual 0.7 X10*3/uL (0.1-1.2); Monocytes Percent Manual 5 % (2-11); Myelocytes Absolute 0.1 X10*/uL; Myelocytes Percent 1 %; Neutrophils Absolute Manual 12.4 X10*3/uL (2.0-8.3); Neutrophils Percent Manual 81 % (45-73)
[2023-02-21 07:34] LABS: Nucleated Red Blood Cells 1 /100WBC (0-0)
[2023-02-21 07:36] LABS: Macrocytosis 1+ (5-14) /OIF; Polychromasia 1+ (0-2) /OIF; RBC Morphology NOTED
[2023-02-21 07:37] LABS: Platelet Estimate NORMAL (NORMAL); Platelet Morphology Comment NORMAL
--- NOTE | 2023-02-21 08:18 | P.PNCC_ITS ---
Subjective Subjective Date of Service: 02/21/23 Critical Care Time (minutes): 60 Physical Exam 2 Vital Signs: Vital Signs: Last Vital Signs Temp 97.0 F 02/21/23 07:00 Pulse 78 02/21/23 08:00 Resp 18 02/21/23 08:00 BP 110/65 02/21/23 08:00 Pulse Ox 96 02/21/23 08:00 O2 Del Method CPAP 02/21/23 08:00 O2 Flow Rate 3 02/21/23 05:00 FiO2 30 02/21/23 08:00 Oxygen Flow Rate 30 02/20/23 16:00 BMI result Body Mass Index 45.7 Const: Other: somnolent, awakes to verbal stimulus; oriented to person only General: no acute distress HEENT: Head: Yes normal to inspection, Yes normocephalic and Yes atraumatic Eyes: General: appearance normal, both eyes and all related structures Neck: Neck: Yes normal visual inspection and Yes supple Chest: Chest palpation & inspection: normal inspection of the chest Resp: Other: no overt rales, rhonchi, wheezing Effort & Inspection: normal respiratory effort Cardio: Rhythm: abnormal rhythm GI: Inspection: Yes normal to inspection Skin: General skin exam: no rashes or lesions noted Neuro: Other: oriented to person only; no focal neurological deficits Extrem: Other: some appreciable pitting edema bilateral thighs General: Yes capillary refill normal Psych: Other: unable to assess Objective Data Labs 02/21/23 05:46 02/21/23 05:46 Labs: Laboratory Results - last 24 hr 02/20/23 02/20/23 02/20/23 12:14 12:19 13:50 WBC 19.7 H RBC 3.96 L Hgb 12.0 L Hct 38.1 L MCV 96.2 MCH 30.3 MCHC 31.5 RDW 18.1 H Plt Count 320 D MPV 11.3 Immature Gran % (Auto) Cancelled Neut % (Auto) Cancelled Lymph % (Auto) Cancelled [place] % (Auto) Cancelled Eos % (Auto) Cancelled Baso % (Auto) Cancelled Lymph # (Auto) Cancelled [place] # (Auto) Cancelled Eos # (Auto) Cancelled Baso # (Auto) Cancelled Abs Immat Gran (auto) Cancelled Absolute Neuts (auto) Cancelled Absolute Nucleated RBC 0.180 H Nucleated RBC % (auto) 0.9 H Neutrophils % (Manual) 68 Band Neutrophils % 3 Lymphocytes % (Manual) 23 Monocytes % (Manual) 4 Metamyelocytes % 2 Myelocytes % Abs Neuts (Manual) 14.0 H Lymphocytes # (Manual) 4.5 Monocytes # (Manual) 0.8 Metamyelocytes # 0.4 Myelocytes # Nucleated RBCs 2 H Platelet Estimate NORMAL Plt Morphology Comment NORMAL RBC Morphology NOTED Polychromasia 1+ (0-2) Hypochromasia 1+ (5-14) Macrocytosis VBG pH VBG pCO2 VBG pO2 VBG HCO3 VBG O2 Saturation VBG Base Excess Sodium 142 Potassium 3.0 L Chloride 98 Carbon Dioxide 33 H Anion Gap 14 BUN 51 H Creatinine 1.61 H Estim Creat Clear Calc 52.8 Estimated GFR 42 POC Glucose 222 H Random Glucose 237 H Lactic Acid 3.4 H* Lactic Acid F/U @ 2Hr Lactic Acid F/U @ 4Hr Calcium 11.1 H D Phosphorus 3.7 Magnesium 2.3 Cancelled Total Bilirubin AST ALT Alkaline Phosphatase Total Protein Albumin TSH Free T4 02/20/23 02/20/23 02/20/23 13:50 13:56 16:39 WBC RBC Hgb Hct MCV MCH MCHC RDW Plt Count MPV Immature Gran % (Auto) Neut % (Auto) Lymph % (Auto) [place] % (Auto) Eos % (Auto) Baso % (Auto) Lymph # (Auto) [place] # (Auto) Eos # (Auto) Baso # (Auto) Abs Immat Gran (auto) Absolute Neuts (auto) Absolute Nucleated RBC Nucleated RBC % (auto) Neutrophils % (Manual) Band Neutrophils % Lymphocytes % (Manual) Monocytes % (Manual) Metamyelocytes % Myelocytes % Abs Neuts (Manual) Lymphocytes # (Manual) Monocytes # (Manual) Metamyelocytes # Myelocytes # Nucleated RBCs Platelet Estimate Plt Morphology Comment RBC Morphology Polychromasia Hypochromasia Macrocytosis VBG pH 7.34 VBG pCO2 56 VBG pO2 74 VBG HCO3 30 H VBG O2 Saturation 93.0 VBG Base Excess 3.6 Sodium Potassium Chloride Carbon Dioxide Anion Gap BUN Creatinine Estim Creat Clear Calc Estimated GFR POC Glucose Random Glucose Lactic Acid Lactic Acid F/U @ 2Hr 3.8 H* Lactic Acid F/U @ 4Hr Calcium Phosphorus Magnesium 2.3 Total Bilirubin AST ALT Alkaline Phosphatase Total Protein Albumin TSH 4.37 H Free T4 0.72 02/20/23 02/20/23 02/20/23 18:16 18:18 18:20 WBC RBC Hgb Hct MCV MCH MCHC RDW Plt Count MPV Immature Gran % (Auto) Neut % (Auto) Lymph % (Auto) [place] % (Auto) Eos % (Auto) Baso % (Auto) Lymph # (Auto) [place] # (Auto) Eos # (Auto) Baso # (Auto) Abs Immat Gran (auto) Absolute Neuts (auto) Absolute Nucleated RBC Nucleated RBC % (auto) Neutrophils % (Manual) Band Neutrophils % Lymphocytes % (Manual) Monocytes % (Manual) Metamyelocytes % Myelocytes % Abs Neuts (Manual) Lymphocytes # (Manual) Monocytes # (Manual) Metamyelocytes # Myelocytes # Nucleated RBCs Platelet Estimate Plt Morphology Comment RBC Morphology Polychromasia Hypochromasia Macrocytosis VBG pH VBG pCO2 VBG pO2 VBG HCO3 VBG O2 Saturation VBG Base Excess Sodium 140 Potassium 4.5 D Chloride 96 Carbon Dioxide 27 Anion Gap 22 H BUN 56 H Creatinine 1.91 H Estim Creat Clear Calc 44.5 Estimated GFR 35 POC Glucose 418 H* 324 H Random Glucose 458 H* Lactic Acid Lactic Acid F/U @ 2Hr Lactic Acid F/U @ 4Hr Calcium 9.7 D Phosphorus 5.7 H Magnesium Total Bilirubin AST ALT Alkaline Phosphatase Total Protein Albumin TSH Free T4 02/20/23 02/20/23 02/20/23 19:06 19:24 20:45 WBC RBC Hgb Hct MCV MCH MCHC RDW Plt Count MPV Immature Gran % (Auto) Neut % (Auto) Lymph % (Auto) [place] % (Auto) Eos % (Auto) Baso % (Auto) Lymph # (Auto) [place] # (Auto) Eos # (Auto) Baso # (Auto) Abs Immat Gran (auto) Absolute Neuts (auto) Absolute Nucleated RBC Nucleated RBC % (auto) Neutrophils % (Manual) Band Neutrophils % Lymphocytes % (Manual) Monocytes % (Manual) Metamyelocytes % Myelocytes % Abs Neuts (Manual) Lymphocytes # (Manual) Monocytes # (Manual) Metamyelocytes # Myelocytes # Nucleated RBCs Platelet Estimate Plt Morphology Comment RBC Morphology Polychromasia Hypochromasia Macrocytosis VBG pH VBG pCO2 VBG pO2 VBG HCO3 VBG O2 Saturation VBG Base Excess Sodium Potassium Chloride Carbon Dioxide Anion Gap BUN Creatinine Estim Creat Clear Calc Estimated GFR POC Glucose 404 H* Random Glucose Lactic Acid Lactic Acid F/U @ 2Hr Lactic Acid F/U @ 4Hr 4.1 H* Calcium Phosphorus Magnesium 2.2 Total Bilirubin AST ALT Alkaline Phosphatase Total Protein Albumin TSH Free T4 02/20/23 02/20/23 02/20/23 20:52 22:12 23:10 WBC RBC Hgb Hct MCV MCH MCHC RDW Plt Count MPV Immature Gran % (Auto) Neut % (Auto) Lymph % (Auto) [place] % (Auto) Eos % (Auto) Baso % (Auto) Lymph # (Auto) [place] # (Auto) Eos # (Auto) Baso # (Auto) Abs Immat Gran (auto) Absolute Neuts (auto) Absolute Nucleated RBC Nucleated RBC % (auto) Neutrophils % (Manual) Band Neutrophils % Lymphocytes % (Manual) Monocytes % (Manual) Metamyelocytes % Myelocytes % Abs Neuts (Manual) Lymphocytes # (Manual) Monocytes # (Manual) Metamyelocytes # Myelocytes # Nucleated RBCs Platelet Estimate Plt Morphology Comment RBC Morphology Polychromasia Hypochromasia Macrocytosis VBG pH VBG pCO2 VBG pO2 VBG HCO3 VBG O2 Saturation VBG Base Excess Sodium Potassium Chloride Carbon Dioxide Anion Gap BUN Creatinine Estim Creat Clear Calc Estimated GFR POC Glucose 410 H* 416 H* 402 H* Random Glucose Lactic Acid Lactic Acid F/U @ 2Hr Lactic Acid F/U @ 4Hr Calcium Phosphorus Magnesium Total Bilirubin AST ALT Alkaline Phosphatase Total Protein Albumin TSH Free T4 02/20/23 02/21/23 02/21/23 23:35 00:00 00:23 WBC RBC Hgb Hct MCV MCH MCHC RDW Plt Count MPV Immature Gran % (Auto) Neut % (Auto) Lymph % (Auto) [place] % (Auto) Eos % (Auto) Baso % (Auto) Lymph # (Auto) [place] # (Auto) Eos # (Auto) Baso # (Auto) Abs Immat Gran (auto) Absolute Neuts (auto) Absolute Nucleated RBC Nucleated RBC % (auto) Neutrophils % (Manual) Band Neutrophils % Lymphocytes % (Manual) Monocytes % (Manual) Metamyelocytes % Myelocytes % Abs Neuts (Manual) Lymphocytes # (Manual) Monocytes # (Manual) Metamyelocytes # Myelocytes # Nucleated RBCs Platelet Estimate Plt Morphology Comment RBC Morphology Polychromasia Hypochromasia Macrocytosis VBG pH VBG pCO2 VBG pO2 VBG HCO3 VBG O2 Saturation VBG Base Excess Sodium 142 Potassium 3.7 Chloride 99 Carbon Dioxide 28 Anion Gap 19 BUN 59 H Creatinine 1.75 H Estim Creat Clear Calc 48.6 Estimated GFR 38 POC Glucose 331 H Random Glucose 322 H D Lactic Acid 3.4 H* Lactic Acid F/U @ 2Hr Lactic Acid F/U @ 4Hr Calcium 9.0 D Phosphorus 5.0 H Magnesium 2.1 Total Bilirubin AST ALT Alkaline Phosphatase Total Protein Albumin TSH Free T4 02/21/23 02/21/23 02/21/23 01:02 01:59 02:06 WBC RBC Hgb Hct MCV MCH MCHC RDW Plt Count MPV Immature Gran % (Auto) Neut % (Auto) Lymph % (Auto) [place] % (Auto) Eos % (Auto) Baso % (Auto) Lymph # (Auto) [place] # (Auto) Eos # (Auto) Baso # (Auto) Abs Immat Gran (auto) Absolute Neuts (auto) Absolute Nucleated RBC Nucleated RBC % (auto) Neutrophils % (Manual) Band Neutrophils % Lymphocytes % (Manual) Monocytes % (Manual) Metamyelocytes % Myelocytes % Abs Neuts (Manual) Lymphocytes # (Manual) Monocytes # (Manual) Metamyelocytes # Myelocytes # Nucleated RBCs Platelet Estimate Plt Morphology Comment RBC Morphology Polychromasia Hypochromasia Macrocytosis VBG pH VBG pCO2 VBG pO2 VBG HCO3 VBG O2 Saturation VBG Base Excess Sodium Potassium Chloride Carbon Dioxide Anion Gap BUN Creatinine Estim Creat Clear Calc Estimated GFR POC Glucose 205 H 152 H Random Glucose Lactic Acid Lactic Acid F/U @ 2Hr 1.9 Lactic Acid F/U @ 4Hr Calcium Phosphorus Magnesium Total Bilirubin AST ALT Alkaline Phosphatase Total Protein Albumin TSH Free T4 02/21/23 02/21/23 02/21/23 03:00 05:04 05:46 WBC 14.8 H RBC 3.30 L Hgb 10.0 L Hct 32.3 L MCV 97.9 MCH 30.3 MCHC 31.0 RDW 18.5 H Plt Count 226 D MPV 11.3 Immature Gran % (Auto) Cancelled Neut % (Auto) Cancelled Lymph % (Auto) Cancelled [place] % (Auto) Cancelled Eos % (Auto) Cancelled Baso % (Auto) Cancelled Lymph # (Auto) Cancelled [place] # (Auto) Cancelled Eos # (Auto) Cancelled Baso # (Auto) Cancelled Abs Immat Gran (auto) Cancelled Absolute Neuts (auto) Cancelled Absolute Nucleated RBC 0.160 H Nucleated RBC % (auto) 1.1 H Neutrophils % (Manual) 81 H Band Neutrophils % 3 Lymphocytes % (Manual) 8 L Monocytes % (Manual) 5 Metamyelocytes % 2 Myelocytes % 1 Abs Neuts (Manual) 12.4 H Lymphocytes # (Manual) 1.2 Monocytes # (Manual) 0.7 Metamyelocytes # 0.3 Myelocytes # 0.1 Nucleated RBCs 1 H Platelet Estimate NORMAL Plt Morphology Comment NORMAL RBC Morphology NOTED Polychromasia 1+ (0-2) Hypochromasia Macrocytosis 1+ (5-14) VBG pH VBG pCO2 VBG pO2 VBG HCO3 VBG O2 Saturation VBG Base Excess Sodium 144 Potassium 3.4 Chloride 101 Carbon Dioxide 29 Anion Gap 17 BUN 57 H Creatinine 1.48 H Estim Creat Clear Calc 57.3 Estimated GFR 46 POC Glucose 132 H 167 H Random Glucose 183 H Lactic Acid Lactic Acid F/U @ 2Hr Lactic Acid F/U @ 4Hr Calcium 8.8 Phosphorus 5.7 H Magnesium 2.3 Total Bilirubin AST ALT Alkaline Phosphatase Total Protein Albumin TSH Free T4 02/21/23 02/21/23 02/21/23 05:46 05:47 06:23 WBC RBC Hgb Hct MCV MCH MCHC RDW Plt Count MPV Immature Gran % (Auto) Neut % (Auto) Lymph % (Auto) [place] % (Auto) Eos % (Auto) Baso % (Auto) Lymph # (Auto) [place] # (Auto) Eos # (Auto) Baso # (Auto) Abs Immat Gran (auto) Absolute Neuts (auto) Absolute Nucleated RBC Nucleated RBC % (auto) Neutrophils % (Manual) Band Neutrophils % Lymphocytes % (Manual) Monocytes % (Manual) Metamyelocytes % Myelocytes % Abs Neuts (Manual) Lymphocytes # (Manual) Monocytes # (Manual) Metamyelocytes # Myelocytes # Nucleated RBCs Platelet Estimate Plt Morphology Comment RBC Morphology Polychromasia Hypochromasia Macrocytosis VBG pH 7.30 L VBG pCO2 62 VBG pO2 57 VBG HCO3 31 H VBG O2 Saturation 80.0 VBG Base Excess 3.7 Sodium Potassium Chloride Carbon Dioxide Anion Gap BUN Creatinine Estim Creat Clear Calc Estimated GFR POC Glucose 183 H Random Glucose Lactic Acid Lactic Acid F/U @ 2Hr Lactic Acid F/U @ 4Hr Calcium Phosphorus Magnesium 2.3 Total Bilirubin 0.5 AST 215 H ALT 97 H Alkaline Phosphatase 116 Total Protein 6.2 L Albumin 3.5 TSH 1.11 Free T4 Microbiology Microbiology Results: Microbiology 02/18/23 19:12 Blood - Venous Blood Culture - Preliminary No growth after 48 hours. 02/18/23 17:41 Blood - Venous Blood Culture - Preliminary No growth after 48 hours. 02/18/23 12:34 Gallbladder Gram Stain - Final 02/18/23 12:34 Gallbladder Routine Culture - Final No growth after 2 days 02/13/23 13:30 Gallbladder Fungal Identification - Preliminary No growth to date. 02/12/23 06:07 Blood - Venous Blood Culture - Final No growth after 5 days. 02/12/23 06:07 Blood - Venous Blood Culture - Final No growth after 5 days. 02/11/23 16:24 Blood - Venous Blood Culture - Final No growth after 5 days. 02/13/23 13:30 Gallbladder Gram Stain - Final 02/13/23 13:30 Gallbladder Routine Culture - Final No growth after 2 days 02/11/23 16:15 Blood - Venous Blood Culture - Final Coag negative Staphylococcus Progress Note: A&P Assessment and plan (1) Myxedema coma: Status: Acute (2) Cholecystitis: Status: Acute (3) Acute respiratory failure: Status: Acute Plan Patient is a 72 Y M with morbid obesity, c/b MICHAEL, rheumatoid arthritis, and prior DVT on apixaban, hypothyroidism p/w acute cholecystitis on 02/11, c/b septic shock, s/p cholecystostomy on 02/13; course c/b pulmonary edema, acute renal insufficiency, ileus, and severe hypothyroidism, c/b symptomatic bradycardia Mrs. Jennifer Nance, Mr. Nance' [id number] and healthcare proxy present at bedside. Decision was made to transition Mr. Nance' philosophy of care to comfort-focused care at this time. Quality Stroke Does the patient have a stroke diagnosis?: No VTE Prior VTE?: Yes VTE Risk Level:: Surgical - high VTE Device Contraindication: Treatment Not Indicated VTE Drug Contraindication: Treatment Not Indicated
[2023-02-21] MEDS: Albuterol/Iprat 2.5/0.5MG 3 ML AMPUL.NEB INHALE (08:51)
[2023-02-21] MEDS: Potassium Chloride/H20 40 MEQ/100 ML PIGGYBACK 50 MEQ IV (08:56)
[2023-02-21] MEDS: acetaZOLAMIDE sodium 500 MG VIAL 375 MG IVPUSH (08:57)
[2023-02-21] MEDS: Nystatin Powder 15 GM BOTTLE 1 APPL TOPICAL (08:59)
--- NOTE | 2023-02-21 08:59 | MHC.CLN ---
F/U DISCUSSED AT ROUNDS WITH MD LABS REVIEWED AND COMMUNICATED WITH PHARMACY CONTINUE TPN TODAY TO 83.33 ML PER HOUR TO PROVIDE 300G DEXTROSE, 100G PROTEIN (1.5g/kg), 1420 KCALS, HOLD LIPIDS REPLETES LYTES NEEDED
--- NOTE | 2023-02-21 11:20 | W.MHC.ACPN ---
Advanced Care Planning Note Advanced Care Planning Note Discussed with: family member(s) Time spent (in minutes): 30 Narrative: Mr. Nance' [id number] and healthcare proxy was at bedside today. I offered updates and clarifications. We discussed Mr. Nance' current clinical status, which has unfortunately not improved. Mrs. Nance' reports Mr. Nance' functional status prior to admission was essentially bed-bound. Given the likely dependent and poor quality of life, Mrs. Nance felt that the philosophy of his care should be transitioned to comfort-focused care at this time. A MOLST was signed to reflect do not escalate care and comfort-focused measures only. Problems Discussed (1) Acute cholecystitis: (2) ABEL (acute kidney injury): (3) Bacteremia: (4) Morbid obesity: (5) Rheumatoid arthritis:
[2023-02-21] MEDS: Scopolamine 1.5 MG PATCH.TD.3 TRANSDERMA (12:29)
[2023-02-21] MEDS: Morphine Sulfate/NS 100 MG/100 ML PLAST..BAG IVCONT (12:46)
--- NOTE | 2023-02-21 13:20 | MHC.CM.PN ---
Met with Pt and his HCP, sister in law September. 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 Pt will be made comfortable per his wishes: LIN completed with pt, and September. CM to follow for any needs pt may have.
[2023-02-22 02:46] VITALS: RESP 16
[2023-02-22 04:26] VITALS: RESP 16
[2023-02-22 06:26] VITALS: RESP 16
[2023-02-22 08:13] LABS: Triiodothyronine T3 Free 0.5 pg/mL (2.3-4.2)
--- NOTE | 2023-02-22 09:55 | PM.DDS ---
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, hypothyroidism p/w acute cholecystitis on 02/11, underwent cholecystostomy tube placement by IR on on 02/13; clinical course complicated by septic shock, acute hypoxic respiratory failure due to pulmonary edema, nonoliguric acute renal insufficiency, ileus , was treated aggressively in intensive care unit with IV fluids, IV antibiotics, close electrolyte monitoring, due to multisystem organ failure throughout his ICU stay and due to concern for him not likely returning to his baseline mental and functional status if he would survive ICU stay given this information patient healthcare proxy Jennifer decided patient care to be comfort focused, therefore patient placed on IV morphine, IV Ativan, scopolamine patch and was transferred to intermediate care unit on this morning on patient peacefully at 09:00. Patient noted to have no pulse , no respirations, pupils fixed and dilated. Time of 09:00 Cause of Septic shock Acute cholecystitis Additional Data Attending physician: Harsha Cotter MD
--- NOTE | 2023-02-22 10:17 | MHC.CM.PN ---
Per ROUNDS discussion, Patient has .
--- NOTE | 2023-02-22 15:30 | PC.NURSE ---
Addendum entered by Latisha Mensah RN 02/22/23 16:06: September - patient's family called back, notified of patient's passing. She will call back tomorrow morning to confirm which home they will be using - she said that it most likely be [facility] home on [address] in [place] Original Note: Unable to contact patient's family to do the notification. Both Dr. Cotter and primary RN left messages for family with no returned call. Per embedded software manager ok to remove body and continue to try contact family.
== END 2023-02-22 09:00 | disposition expired | DRG 871 ==
LOC: HO.ED 21:22 → HO.EDOVER 22:51 → HO.S3 23:24 → HO.IMC 02-12 13:54 → HO.ICU 02-13 05:23 → HO.IMC 02-21 17:06
PROVIDERS: Internal Medicine; Internal Medicine Critical Care Medicine; Internal Medicine Nephrology; Internal Medicine Pulmonary Disease; Nurse Practitioner Family; Radiology Diagnostic Radiology; Registered Nurse Community Health; Student in an Organized Health Care Education/Training Program; Admitting Provider Surgery; Emergency Provider Emergency Medicine; PCP Internal Medicine; Visit Provider Hospitalist
PROC: 0F9430Z Drainage of Gallbladder with Drainage Device, Percutaneous Approach (ICD-10-PCS; principal; 2023-02-13 12:00)
DX: A41.9 Sepsis, unspecified organism (principal); E03.5 Myxedema coma; J96.01 Acute respiratory failure with hypoxia; N17.0 Acute kidney failure with tubular necrosis; R65.21 Severe sepsis with septic shock; K81.0 Acute cholecystitis; Z68.42 Body mass index [BMI] 45.0-49.9, adult; J98.11 Atelectasis; K56.7 Ileus, unspecified; E87.0 Hyperosmolality and hypernatremia; I48.92 Unspecified atrial flutter; M06.9 Rheumatoid arthritis, unspecified; G47.33 Obstructive sleep apnea (adult) (pediatric); G89.29 Other chronic pain; E03.9 Hypothyroidism, unspecified; L40.9 Psoriasis, unspecified; E66.01 Morbid (severe) obesity due to excess calories; N18.30 Chronic kidney disease, stage 3 unspecified; Z86.718 Personal history of other venous thrombosis and embolism; Z79.01 Long term (current) use of anticoagulants; Z79.51 Long term (current) use of inhaled steroids; Z79.890 Hormone replacement therapy; Z79.899 Other long term (current) drug therapy; Z23 Encounter for immunization
CPT/HCPCS: 36415; 36600; 49406; 70450; 71045; 71250; 74176; 74177; 76705; 80048; 80053; 80076; 81001; 81003; 82040; 82272; 82550; 82570; 82803; 82947; 83605; 83690; 83735; 83880; 84100; 84300; 84439; 84443; 84478; 84481; 84484; 85007; 85025; 85027; 85610; 85730; 87040; 87070; 87073; 87102; 87147; 87205; 87493; 87507; 90471; 90686; 93005; 93306; 93308; 94640; 94660; 94799; 99152; 99153; 99285; C1729; C1758; C1894; C9113; J0131; J0171; J0613; J0878; J1160; J1170; J1450; J1643; J1650; J1940; J2270; J2371; J2405; J2543; J3010; J3475; P9047; Q4186

== ENCOUNTER 2023-02-11 22:50 | Outpatient (BNV) | payer MEDICARE, MEDICAID, SELFPAY | END 2023-02-18 11:58 | PROVIDERS: Admitting Provider Surgery; Emergency Provider Emergency Medicine; PCP Internal Medicine; Visit Provider Radiology Diagnostic Radiology | DX: K65.1 Peritoneal abscess (principal) | CPT/HCPCS: 49406 ==

== ENCOUNTER 2023-02-11 22:50 | Outpatient (BNV) | payer MEDICARE, MEDICAID, SELFPAY | END 2023-02-13 12:49 | PROVIDERS: Admitting Provider Surgery; Emergency Provider Emergency Medicine; PCP Internal Medicine; Visit Provider Radiology Diagnostic Radiology | DX: K81.0 Acute cholecystitis (principal) | CPT/HCPCS: 47490 ==

== ENCOUNTER 2023-02-11 22:50 | Outpatient (BNV) | payer MEDICARE, MEDICAID, SELFPAY | END 2023-02-18 07:00 | PROVIDERS: Admitting Provider Surgery; Emergency Provider Emergency Medicine; PCP Internal Medicine; Visit Provider Internal Medicine Cardiovascular Disease | DX: R00.2 Palpitations (principal) | CPT/HCPCS: 93308 ==

== ENCOUNTER 2023-02-11 22:50 | Outpatient (BNV) | payer MEDICARE, MEDICAID, SELFPAY | END 2023-02-13 07:00 | PROVIDERS: Admitting Provider Surgery; Emergency Provider Emergency Medicine; Visit Provider Internal Medicine Cardiovascular Disease | DX: R78.81 Bacteremia (principal) | CPT/HCPCS: 93306 ==

== ENCOUNTER → 2023-02-11 22:50 | Outpatient (BNV) | payer MEDICARE, MEDICAID, SELFPAY | PROVIDERS: Admitting Provider Surgery; Emergency Provider Emergency Medicine; Visit Provider Surgery | DX: I95.9 Hypotension, unspecified (principal); A41.9 Sepsis, unspecified organism; K81.0 Acute cholecystitis; I82.90 Acute embolism and thrombosis of unspecified vein | CPT/HCPCS: 99223; 99231; 99232 ==

== ENCOUNTER → 2023-02-11 22:50 | Outpatient (BNV) | payer MEDICARE, MEDICAID, SELFPAY | PROVIDERS: Admitting Provider Surgery; Emergency Provider Emergency Medicine; PCP Internal Medicine; Visit Provider Internal Medicine Critical Care Medicine | DX: K81.0 Acute cholecystitis (principal); N17.9 Acute kidney failure, unspecified; R78.81 Bacteremia; E66.01 Morbid (severe) obesity due to excess calories; M06.9 Rheumatoid arthritis, unspecified; E03.5 Myxedema coma; K81.9 Cholecystitis, unspecified; J96.00 Acute respiratory failure, unspecified whether with hypoxia or hypercapnia | CPT/HCPCS: 99291 ==

== ENCOUNTER → 2023-02-11 22:50 | Outpatient (BNV) | payer MEDICARE, MEDICAID, SELFPAY | PROVIDERS: Admitting Provider Surgery; Emergency Provider Emergency Medicine; Visit Provider Internal Medicine Pulmonary Disease | DX: K81.0 Acute cholecystitis (principal); K56.7 Ileus, unspecified; M06.9 Rheumatoid arthritis, unspecified; E66.01 Morbid (severe) obesity due to excess calories; E03.9 Hypothyroidism, unspecified; N17.9 Acute kidney failure, unspecified | CPT/HCPCS: 36556; 99291 ==

== ENCOUNTER → 2023-02-11 22:50 | Outpatient (BNV) | payer MEDICARE, MEDICAID, SELFPAY | PROVIDERS: Admitting Provider Surgery; Emergency Provider Emergency Medicine; PCP Internal Medicine; Visit Provider Internal Medicine Cardiovascular Disease | DX: J96.01 Acute respiratory failure with hypoxia (principal); I49.9 Cardiac arrhythmia, unspecified | CPT/HCPCS: 99223; 99233 ==

== ENCOUNTER → 2023-02-11 22:50 | Outpatient (BNV) | payer MEDICARE, MEDICAID, SELFPAY | PROVIDERS: Admitting Provider Surgery; Emergency Provider Emergency Medicine; Visit Provider Student in an Organized Health Care Education/Training Program | DX: E03.5 Myxedema coma (principal); K81.9 Cholecystitis, unspecified; J96.01 Acute respiratory failure with hypoxia | CPT/HCPCS: 99222; 99239; 99499 ==